=== PATIENT | female | born 1980 | race Caucasian/White ===

== ENCOUNTER 2018-05-04 09:57 | Inpatient (IN) | payer OTHER ==
--- OUTSIDE RECORDS SUMMARY | 2018-05-04 09:59 | XMS REPORT | Clinical Summary ---
:1980 Author Organization [facility] Address [address] [place] [address] Care Team Providers Name Role Phone Kinsey Rockwell MD Primary Care Provider Allergies Active Allergy Reactions Severity Noted Date Comments Codeine 04/15/2018 Current Medications Prescription Sig. Disp. Refills Start End Status Date Date ibuprofen 0 Active (ADVIL,MOTRIN) 600 6 MG tablet busPIRone (BUSPAR) Take 10 mg by Active 10 MG tablet mouth 2 (two) times a day. methocarbamol Take 1 tablet 15 tablet 0 Active (ROBAXIN-750) 750 (750 mg total) 8 018 MG tablet by mouth 3 (three) times a day as needed for muscle spasms for up to 5 days. naproxen Take 1 tablet 20 tablet 0 Active (NAPROSYN) 500 MG (500 mg total) 8 018 tablet by mouth 2 (two) times a day with meals for 10 days. sulfamethoxazole-t Take 1 tablet 14 tablet 0 Active rimethoprim by mouth 2 8 018 (BACTRIM DS) (two) times a 800-160 mg per day for 7 days. tablet ondansetron ODT DIS ONE T PO Q 0 Discontinued (ZOFRAN-ODT) 4 MG 6 H PRN NV 6 018 disintegrating tablet traMADol (ULTRAM) Take 1 tablet 40 tablet 0 Discontinued 50 mg (50 mg total) 8 018 tabletIndications: by mouth every Right upper 6 (six) hours quadrant abdominal as needed for pain moderate pain for up to 10 days. hydrocortisone Insert 1 60 suppository 0 Discontinued (ANUSOL-HC) 25 mg suppository (25 8 018 suppository mg total) into the rectum 2 (two) times a day for 30 days. gabapentin Take 1 capsule 90 capsule 0 Discontinued (NEURONTIN) 300 mg (300 mg total) 8 018 capsuleIndications by mouth 3 : Right upper (three) times a quadrant abdominal day for 30 pain days. Active Problems Problem Noted Date Acute abdominal pain 04/16/2018 Right upper quadrant abdominal pain 04/15/2018 Overview: Added automatically from request for surgery [id number] Closed fracture of left ulna 08/14/2016 Encounters Date Type Specialty Care Team Description 04/29/2018 Emergency Emergency Medicine Adan, Acute left-sided low back pain without sciatica (Primary Dx); Claudia Choi MD 04/19/2018 Documentation Obstetrics and Alistair Ware MD 04/17/2018 Anesthesia Event Gastroenterology Reina Hamm MD 04/17/2018 Procedure Pass Gastroenterology 04/17/2018 Surgery Gastroenterology Gino, ERCP WITH FLUORO Adrian Avila MD with stent removal and bx 04/15/2018 Hospital Encounter General Surgery Ted, Acute abdominal pain (Primary Dx); - Ramirez Bowel perforation; 04/19/2018 [place], Nausea and vomiting, intractability of vomiting not specified, unspecified vomiting type; Dehydration; Tiara, Right upper quadrant abdominal pain Dru Ruiz, DO after 05/03/2017 Family History Medical History Relation Name Comments Colon cancer Father Heart disease Maternal Grandfather No Known Problems Mother Relation Name Status Comments Father Alive Maternal Grandfather Maternal Grandmother Mother Alive Paternal Grandfather Paternal Grandmother Social History Tobacco Use Types Packs/Day Years Used Date Current Some Day Smoker Cigarettes 0.25 Smokeless Tobacco: Never Used Alcohol Use Drinks/Week oz/Week Comments Yes 1 Standard drinks or equivalent 0.6 socially Sex Assigned at Date Recorded Not on file Last Filed Vital Signs Vital Sign Reading Time Taken Blood Pressure 155/99 04/29/2018 8:26 PM CDT Pulse 101 04/29/2018 8:26 PM CDT Temperature 35.9 C (96.6 F) 04/29/2018 7:35 PM CDT Respiratory Rate 20 04/29/2018 7:35 PM CDT Oxygen Saturation 98% 04/29/2018 7:35 PM CDT Inhaled Oxygen Concentration - - Weight 81.6 kg (180 lb) 04/29/2018 4:21 PM CDT Height 165.1 cm (5' 5") 04/29/2018 4:21 PM CDT Body Mass Index 29.95 04/29/2018 4:21 PM CDT Plan of Treatment Health Maintenance Due Date Last Done Comments CERVICAL CANCER SCREENING 2003 INFLUENZA VACCINE 06/10/2018 Procedures Procedure Name Priority Date/Time Associated Comments Diagnosis CT RENAL STONE PROTOCOL STAT 04/29/2018 5:24 Results for this PM CDT procedure are in the results section. HCG QUALITATIVE, URINE STAT 04/29/2018 4:50 Results for this SCREEN PM CDT procedure are in the results section. URINALYSIS STAT 04/29/2018 4:50 Results for this PM CDT procedure are in the results section. ESTIMATED GFR STAT 04/29/2018 4:40 Results for this PM CDT procedure are in the results section. COMPREHENSIVE METABOLIC STAT 04/29/2018 4:40 Results for this PANEL PM CDT procedure are in the results section. HC COMPLETE BLD COUNT STAT 04/29/2018 4:40 Results for this W/AUTO DIFF PM CDT procedure are in the results section. SURGICAL PATHOLOGY Routine 04/20/2018 10:12 Results for this REQUEST AM CDT procedure are in the results section. US PELVIC TRANSVAGINAL STAT 04/19/2018 9:44 Results for this AM CDT procedure are in the results section. US PELVIC STAT 04/19/2018 9:22 Results for this TRANSABDOMINAL AM CDT procedure are in the results section. ESTIMATED GFR STAT 04/19/2018 8:07 Results for this AM CDT procedure are in the results section. LIPASE LEVEL STAT 04/19/2018 8:07 Results for this AM CDT procedure are in the results section. BASIC METABOLIC PANEL STAT 04/19/2018 8:07 Results for this AM CDT procedure are in the results section. HC COMPLETE BLD COUNT Routine 04/19/2018 3:38 Results for this W/AUTO DIFF AM CDT procedure are in the results section. LIPASE LEVEL Routine 04/18/2018 4:00 Results for this AM CDT procedure are in the results section. ESTIMATED GFR Routine 04/18/2018 4:00 Results for this AM CDT procedure are in the results section. COMPREHENSIVE METABOLIC Routine 04/18/2018 4:00 Results for this PANEL AM CDT procedure are in the results section. PHOSPHORUS LEVEL Routine 04/18/2018 4:00 Results for this AM CDT procedure are in the results section. MAGNESIUM LEVEL Routine 04/18/2018 4:00 Results for this AM CDT procedure are in the results section. HC COMPLETE BLD COUNT Routine 04/18/2018 3:50 Results for this W/AUTO DIFF AM CDT procedure are in the results section. ERCP WITH FLUORO 04/17/2018 2:15 Acute abdominal PM CDT pain Special Needs Fluoro HEMOGLOBIN & HEMATOCRIT Routine 04/17/2018 12:25 PM CDT ESTIMATED GFR Routine 04/17/2018 4:00 AM CDT PHOSPHORUS LEVEL Routine 04/17/2018 4:00 AM CDT MAGNESIUM LEVEL Routine 04/17/2018 4:00 AM CDT BASIC METABOLIC PANEL Routine 04/17/2018 4:00 AM CDT CBC WITH PLATELET AND Routine 04/17/2018 3:50 AM CDT Results for this DIFFERENTIAL procedure are in the results section. CT ABDOMEN PELVIS W CONTRAST STAT 04/17/2018 3:[address] ABDOMEN PELVIS WO STAT 04/15/2018 11:49 PM CDT Results for this CONTRAST procedure are in the results section. BLOOD CULTURE, AEROBIC & Routine 04/15/2018 10:10 PM CDT Results for this ANAEROBIC procedure are in the results section. ESTIMATED GFR STAT 04/15/2018 10:00 PM CDT LIPASE LEVEL STAT 04/15/2018 10:00 PM CDT LACTIC ACID LEVEL, SEPSIS - STAT 04/15/2018 10:00 PM CDT Results for this NOW AND REPEAT 2X EVERY 3 procedure are in the HOURS results section. COMPREHENSIVE METABOLIC STAT 04/15/2018 10:00 PM CDT Results for this PANEL procedure are in the results section. PARTIAL THROMBOPLASTIN TIME STAT 04/15/2018 10:00 PM CDT Results for this (PTT) procedure are in the results section. PROTHROMBIN TIME WITH INR STAT 04/15/2018 10:00 PM CDT HC COMPLETE BLD COUNT W/AUTO STAT 04/15/2018 10:00 PM CDT Results for this DIFF procedure are in the results section. ECG 12-LEAD STAT 04/15/2018 7:10 PM CDT after 05/03/[address] Renal Stone Protocol (04/29/2018 5:24 PM) Narrative Performed At EXAMINATION:CT RENAL STONE PROTOCOL RADIANT CLINICAL HISTORY:Flank painstone disease suspected TECHNIQUE: Multiple axial images of the abdomen and pelvis were obtained without intravenous administration of iodinated contrast. Sagittal and coronal computerized reformatted images were also obtained. The lack of intravenous contrast reduces the sensitivity of detecting solid organ disease. CT scans are performed using radiation dose reduction techniques. Technical factors are evaluated and adjusted to ensure appropriate moderation of exposure. Automated dose management technology is applied to adjust radiation exposure while achieving a diagnostic quality image. COMPARISON:04/17/2018 FINDINGS: Evaluation for renal calculi is limited due to respiratory motion although a small punctate 3-4 mm calculus is suspected within the midpole of the left kidney. There are no definite right renal calculi. No ureteral calculi are seen. There is no hydronephrosis. The unenhanced spleen, adrenal glands, pancreas, and liver are unremarkable. Gallbladder has been removed. Pneumobilia noted on previous examination has resolved. The plastic common bile duct stent has also been removed. Abdominal aorta is normal in caliber. There is no lymphadenopathy or ascites. No inflammatory changes are seen around the large or small bowel. The cecum extends into the pelvis. The appendix is not clearly identified although no pericecal fluid collections are present. No pelvic mass or pelvic lymphadenopathy are seen. Bladder is collapsed. There are bilateral breast implants although the right implant appears deflated. Atelectasis is present in the lung bases. The osseous structures are intact.. IMPRESSION: A small punctate 3 mm calculus is present in the left kidney. No additional calculi are seen. [id number] Procedure Note Hm Interface, Radiology Results Incoming - 04/29/2018 5:43 PM CDT EXAMINATION: CT RENAL STONE PROTOCOL CLINICAL HISTORY: Flank pain stone disease suspected TECHNIQUE: Multiple axial images of the abdomen and pelvis were obtained without intravenous administration of iodinated contrast. Sagittal and coronal computerized reformatted images were also obtained. The lack of intravenous contrast reduces the sensitivity of detecting solid organ disease. CT scans are performed using radiation dose reduction techniques. Technical factors are evaluated and adjusted to ensure appropriate moderation of exposure. Automated dose management technology is applied to adjust radiation exposure while achieving a diagnostic quality image. COMPARISON: 04/17/2018 FINDINGS: Evaluation for renal calculi is limited due to respiratory motion although a small punctate 3-4 mm calculus is suspected within the midpole of the left kidney. There are no definite right renal calculi. No ureteral calculi are seen. There is no hydronephrosis. The unenhanced spleen, adrenal glands, pancreas, and liver are unremarkable. Gallbladder has been removed. Pneumobilia noted on previous examination has resolved. The plastic common bile duct stent has also been removed. Abdominal aorta is normal in caliber. There is no lymphadenopathy or ascites. No inflammatory changes are seen around the large or small bowel. The cecum extends into the pelvis. The appendix is not clearly identified although no pericecal fluid collections are present. No pelvic mass or pelvic lymphadenopathy are seen. Bladder is collapsed. There are bilateral breast implants although the right implant appears deflated. Atelectasis is present in the lung bases. The osseous structures are intact.. IMPRESSION: A small punctate 3 mm calculus is present in the left kidney. No additional calculi are seen. [facility] [id number] Performing Organization Address City/State/Zipcode Phone Number [facility] [address] [place] [address] Urinalysis (04/29/2018 4:50 PM) Glucose, UA Negative Negative [facility] Bilirubin, UA Negative Negative [facility] Ketones, UA Negative Negative DEPARTMENT OF PATHOLOGY AND GENOMIC MEDICINE, [facility] Specific gravity, UA 1.025 1.001 - 1.035 [facility] Blood, UA Negative Negative [facility] pH, UA 6.0 5.0 - 8.5 [facility] Protein, UA 1+ (A) Negative [facility] Urobilinogen, UA <2.0 <2.0 [facility] Nitrite, UA Negative Negative [facility] Leukocyte esterase, UA Trace (A) Negative [facility] Color, UA Yellow [facility] Appearance, UA Cloudy [facility] Specimen Urine Performing Organization Address City/State/[facility] Phone Number DEPARTMENT OF PATHOLOGY AND [address] [place] [address] hCG qualitative, urine screen (04/29/2018 4:50 PM) hCG qualitative, urine NegativeComment: DEPARTMENT OF Sensitivity of HCG test: 25 PATHOLOGY AND GENOMIC mIU/mL [facility] Specimen Urine Performing Organization Address City/[facility] Phone Number DEPARTMENT OF PATHOLOGY AND [address] [place] [address] Estimated GFR (04/29/2018 4:40 PM)Only the most recent of5 resultswithin the time period is included. GFR Non Af Amer >90 mL/min/1.73 m2 [facility] GFR Af Amer >90 mL/min/1.73 m2 DEPARTMENT OF PATHOLOGY Comment: AND [facility], Chronic kidney disease: <60 mL/min/1.73m2 [facility] Kidney failure: <15 mL/min/1.73m2 CENTER The estimated GFR is calculated from the IDMS-traceable Modification of Diet in Renal Disease Equation. The accuracy of the calculation is poor when the creatinine is normal. Calculated values >90 mL/min/1.73m2 are not reported. This equation has not been validated in children (<18 years), women, the elderly (>70 years), or ethnic groups other than Caucasians and Americans. Specimen Plasma specimen Performing Organization Address City/State/[facility] Phone Number DEPARTMENT OF PATHOLOGY AND [address] [place] [address] CBC with platelet and differential (04/29/2018 4:40 PM)Only the most recent of5 resultswithin the time period is included. WBC 8.23 4.50 - 11.00 k/uL [facility] RBC 4.72 4.20 - 5.50 m/uL [facility] HGB 13.5 12.0 - 16.0 g/dL [facility] HCT 40.3 37.0 - 47.0 % [facility] MCV 85.4 82.0 - 100.0 fL [facility] MCH 28.6 27.0 - 34.0 pg [facility] MCHC 33.5 31.0 - 37.0 g/dL [facility] RDW - SD 37.2 37.0 - 55.0 fL [facility] MPV 9.7 8.8 - 13.2 fL [facility] Platelet count 379 150 - 400 k/uL [facility] Neutrophils 46.9 39.0 - 69.0 % [facility] Lymphocytes 38.5 25.0 - 45.0 % [facility] Monocytes 8.6 0.0 - 10.0 % [facility] Eosinophils 5.3 (H) 0.0 - 5.0 % [facility] Basophils 0.7 0.0 - 1.0 % [facility] Specimen Blood Performing Organization Address City/State/Zipcode Phone Number DEPARTMENT OF PATHOLOGY AND [address] [place] [address] [facility] Comprehensive metabolic panel (04/29/2018 4:40 PM)Only the most recent of3 resultswithin the time period is included. Sodium 136 128 - 145 mEq/L [facility] Potassium 3.5 (L) 3.6 - 5.1 mEq/L [facility] CO2 28 18 - 33 mEq/L [facility] Chloride 104 98 - 108 mEq/L [facility] Glucose 102 73 - 118 mg/dL [facility] Calcium 9.1 8.0 - 10.3 mg/dL [facility] BUN 15 7 - 22 mg/dL [facility] Creatinine 0.4 (L) 0.6 - 1.2 mg/dL [facility] Alkaline phosphatase 51 42 - 141 U/L [facility] ALT 17 10 - 47 U/L [facility] AST 24 11 - 38 U/L [facility] Total bilirubin 0.5 0.2 - 1.6 mg/dL [facility] Albumin 3.9 3.3 - 5.5 g/dL [facility] Protein 7.7 6.4 - 8.1 g/dL [facility] Anion gap 4@ANIO (L) 7 - 15 mEq/L [facility] A/G ratio 1.0 0.7 - 3.8 [facility] Specimen Plasma specimen Performing Organization Address City/State/Zipcode Phone Number DEPARTMENT OF PATHOLOGY AND [address] [place] [address] [facility] Surgical pathology request (04/20/2018 10:12 AM) [facility] DEPARTMENT OF PATHOLOGY AND GENOMIC MEDICINE Surgical pathology report See link below for PDF [facility] DEPARTMENT OF Lab Report PATHOLOGY AND GENOMIC MEDICINE Result status This is Final Report to [facility] DEPARTMENT OF [id number] PATHOLOGY AND GENOMIC MEDICINE Performing Organization Address City/State/Zipcode Phone Number [facility] DEPARTMENT OF PATHOLOGY AND [address] [address] [employer] US Pelvic Transvaginal (04/19/2018 9:44 AM) Narrative Performed At EXAMINATION:US PELVIC TRANSVAGINAL, US PELVIC TRANSABDOMINAL [facility] CLINICAL HISTORY:Evaluation of abnormal uterine bleeding in pre or post menopausal patients, Non-OB evaluation of vaginal Bleeding COMPARISON:None. TECHNIQUE:Transabdominal and endovaginal sonographic images of the pelvis were obtained. Grayscale, color Doppler, and spectral waveform analysis of the ovarian vessels was performed. FINDINGS: The uterus measures 8.56 cm x 4.9 x 4.3 cm. The endometrial stripe measures 1.77 cm. The right ovary measures 3.08 cm x 1.56 cm x 1.79 cm . Normal Doppler flow was present. The left ovary measures 2.79 cm x 1.41 cm x 1.66 cm. Normal Doppler flow was present. TRANSVAGINAL IMAGING: The uterus has a heterogeneous appearance.Endometrium is not enlarged. The right ovary has multiple follicles. There is no torsion present. The left ovary has multiple follicles. There is no torsion present. There are no adnexal masses present. IMPRESSION: 1.Normal transabdominal and endovaginal pelvic ultrasound examination. 2. The uterus does not demonstrate any masses. The uterus has a heterogeneous appearance. 3. The ovaries unremarkable. 4. There are no adnexal masses. [id number] Procedure Note Interface, Radiology Results Incoming - 04/19/2018 10:10 AM CDT EXAMINATION: US PELVIC TRANSVAGINAL, US PELVIC TRANSABDOMINAL CLINICAL HISTORY: Evaluation of abnormal uterine bleeding in pre or post menopausal patients, Non-OB evaluation of vaginal Bleeding COMPARISON: None. TECHNIQUE:Transabdominal and endovaginal sonographic images of the pelvis were obtained. Grayscale, color Doppler, and spectral waveform analysis of the ovarian vessels was performed. FINDINGS: The uterus measures 8.56 cm x 4.9 x 4.3 cm. The endometrial stripe measures 1.77 cm. The right ovary measures 3.08 cm x 1.56 cm x 1.79 cm . Normal Doppler flow was present. The left ovary measures 2.79 cm x 1.41 cm x 1.66 cm. Normal Doppler flow was present. TRANSVAGINAL IMAGING: The uterus has a heterogeneous appearance. Endometrium is not enlarged. The right ovary has multiple follicles. There is no torsion present. The left ovary has multiple follicles. There is no torsion present. There are no adnexal masses present. IMPRESSION: 1. Normal transabdominal and endovaginal pelvic ultrasound examination. 2. The uterus does not demonstrate any masses. The uterus has a heterogeneous appearance. 3. The ovaries unremarkable. 4. There are no adnexal masses. [id number] Performing Organization Address City/State/Zipcode Phone Number [facility] [address] [place] [address] US Pelvic Transabdominal (04/19/2018 9:22 AM) Narrative Performed At EXAMINATION:US PELVIC TRANSVAGINAL, US PELVIC TRANSABDOMINAL [facility] CLINICAL HISTORY:Evaluation of abnormal uterine bleeding in pre or post menopausal patients, Non-OB evaluation of vaginal Bleeding COMPARISON:None. TECHNIQUE:Transabdominal and endovaginal sonographic images of the pelvis were obtained. Grayscale, color Doppler, and spectral waveform analysis of the ovarian vessels was performed. FINDINGS: The uterus measures 8.56 cm x 4.9 x 4.3 cm. The endometrial stripe measures 1.77 cm. The right ovary measures 3.08 cm x 1.56 cm x 1.79 cm . Normal Doppler flow was present. The left ovary measures 2.79 cm x 1.41 cm x 1.66 cm. Normal Doppler flow was present. TRANSVAGINAL IMAGING: The uterus has a heterogeneous appearance.Endometrium is not enlarged. The right ovary has multiple follicles. There is no torsion present. The left ovary has multiple follicles. There is no torsion present. There are no adnexal masses present. IMPRESSION: 1.Normal transabdominal and endovaginal pelvic ultrasound examination. 2. The uterus does not demonstrate any masses. The uterus has a heterogeneous appearance. 3. The ovaries unremarkable. 4. There are no adnexal masses. [id number] Procedure Note Interface, Radiology Results Incoming - 04/19/2018 10:10 AM CDT EXAMINATION: US PELVIC TRANSVAGINAL, US PELVIC TRANSABDOMINAL CLINICAL HISTORY: Evaluation of abnormal uterine bleeding in pre or post menopausal patients, Non-OB evaluation of vaginal Bleeding COMPARISON: None. TECHNIQUE:Transabdominal and endovaginal sonographic images of the pelvis were obtained. Grayscale, color Doppler, and spectral waveform analysis of the ovarian vessels was performed. FINDINGS: The uterus measures 8.56 cm x 4.9 x 4.3 cm. The endometrial stripe measures 1.77 cm. The right ovary measures 3.08 cm x 1.56 cm x 1.79 cm . Normal Doppler flow was present. The left ovary measures 2.79 cm x 1.41 cm x 1.66 cm. Normal Doppler flow was present. TRANSVAGINAL IMAGING: The uterus has a heterogeneous appearance. Endometrium is not enlarged. The right ovary has multiple follicles. There is no torsion present. The left ovary has multiple follicles. There is no torsion present. There are no adnexal masses present. IMPRESSION: 1. Normal transabdominal and endovaginal pelvic ultrasound examination. 2. The uterus does not demonstrate any masses. The uterus has a heterogeneous appearance. 3. The ovaries unremarkable. 4. There are no adnexal masses. [id number] Performing Organization Address [facility]/Zipcode Phone Number [address] [address] Lipase level (04/19/2018 8:07 AM)Only the most recent of3 resultswithin the time period is included. Lipase 44 13 - 60 U/L [facility] DEPARTMENT OF PATHOLOGY AND GENOMIC MEDICINE Specimen Plasma specimen Performing Organization Address City/[facility] Phone Number [facility] DEPARTMENT OF PATHOLOGY AND [address] [place] [address] [id number] GENOMIC MEDICINE Basic metabolic panel (04/19/2018 8:07 AM)Only the most recent of2 resultswithin the time period is included. Sodium 138 135 - 148 mEq/L [facility] DEPARTMENT OF PATHOLOGY AND GENOMIC MEDICINE Potassium 3.3 (L) 3.5 - 5.0 mEq/L [facility] DEPARTMENT OF PATHOLOGY AND GENOMIC MEDICINE Chloride 103 98 - 112 mEq/L [facility] DEPARTMENT OF PATHOLOGY AND GENOMIC MEDICINE CO2 25 24 - 31 mEq/L [facility] DEPARTMENT OF PATHOLOGY AND GENOMIC MEDICINE Anion gap 10@ANIO 7 - 15 mEq/L [facility] DEPARTMENT OF PATHOLOGY AND GENOMIC MEDICINE BUN 4 (L) 6 - 20 mg/dL [facility] DEPARTMENT OF PATHOLOGY AND GENOMIC MEDICINE Creatinine 0.6 0.5 - 0.9 mg/dL [facility] DEPARTMENT OF PATHOLOGY AND GENOMIC MEDICINE Glucose 114 (H) 65 - 99 mg/dL [facility] DEPARTMENT OF PATHOLOGY AND GENOMIC MEDICINE Calcium 9.1 8.3 - 10.2 mg/dL [facility] DEPARTMENT OF PATHOLOGY AND GENOMIC MEDICINE Specimen Plasma specimen Performing Organization Address [facility] Phone Number [facility] DEPARTMENT OF PATHOLOGY AND [address] [place] [address] Phosphorus level (04/18/2018 4:00 AM)Only the most recent of2 resultswithin the time period is included. Phosphorus 3.1 2.4 - 4.5 mg/dL [facility] DEPARTMENT OF PATHOLOGY AND GENOMIC MEDICINE Specimen Plasma specimen Performing Organization Address [facility] Phone Number [facility] DEPARTMENT OF PATHOLOGY AND [address] [place] [address] Magnesium level (04/18/2018 4:00 AM)Only the most recent of2 resultswithin the time period is included. Magnesium 2.1 1.6 - 2.6 mg/dL [facility] DEPARTMENT OF PATHOLOGY AND GENOMIC MEDICINE Specimen Plasma specimen Performing Organization Address [facility] Phone Number [facility] DEPARTMENT OF PATHOLOGY AND [address] [place] [address] Hemoglobin & hematocrit (04/17/2018 12:25 PM) HGB 11.4 (L) 12.0 - 16.0 g/dL [facility] DEPARTMENT OF PATHOLOGY AND GENOMIC MEDICINE HCT 32.4 (L) 37.0 - 47.0 % [facility] DEPARTMENT OF PATHOLOGY AND GENOMIC MEDICINE Specimen Blood Performing Organization Address [facility] Phone Number [facility] DEPARTMENT OF PATHOLOGY AND [address] [place] [address] CT Abdomen Pelvis W Contrast (04/17/2018 3:41 AM) Narrative Performed At Examination:CT ABDOMEN PELVIS W CONTRAST [facility] Clinical History: ABDOMINAL PAIN, Possible fistula complicating lap kate and ERCP. Comparison: None. Findings: CT scans are performed using radiation dose reduction techniques.Technical factors are evaluated and adjusted to ensure appropriate moderation of exposure.Automated dose management technology is applied to adjust radiation exposure while achieving a diagnostic quality image. CT scan of the abdomen and pelvis was performed after intravenous contrast. The patient is status post cholecystectomy. Small amount of pneumobilia is noted. There is a common bile duct stent noted but no common bile duct dilatation is seen. There is no fluid collection in the gallbladder fossa. Liver demonstrate a vague low-density in the right lobe measuring 8 mm which is too small to characterize. The spleen, pancreas, and adrenal glands are unremarkable. The kidneys are within normal limits without hydronephrosis. Nonspecific but nondilated proximal fluid-filled loops of small bowel but no gross distention is seen. No bowel thickening or fat stranding is seen. The appendix is not visualized. No free fluid is seen. Urinary bladder is unremarkable. There is a bubble of free intraperitoneal air noted in the anterior upper abdomen probably related to recent surgery. The visualized lung bases are clear. IMPRESSION: 1. Status post cholecystectomy with small pneumobilia and common bile duct stent but no fluid collection in the gallbladder fossa. 2. Small bubble of free intraperitoneal air in the anterior upper abdomen probably related to recent surgery. Clinical correlation is recommended. 3. Nonspecific but nondilated fluid-filled loops of small bowel may be related to adynamic ileus. The nurse is taking care of the patient, Isidro, was informed of these findings on 04/17/2018 3:56 AM and acknowledged understanding of the findings. [facility]-[id number] Procedure Note [facility], Radiology Results Incoming - 04/17/2018 4:00 AM CDT Examination: CT ABDOMEN PELVIS W CONTRAST Clinical History: ABDOMINAL PAIN, Possible fistula complicating lap kate and ERCP. Comparison: None. Findings: CT scans are performed using radiation dose reduction techniques. Technical factors are evaluated and adjusted to ensure appropriate moderation of exposure. Automated dose management technology is applied to adjust radiation exposure while achieving a diagnostic quality image. CT scan of the abdomen and pelvis was performed after intravenous contrast. The patient is status post cholecystectomy. Small amount of pneumobilia is noted. There is a common bile duct stent noted but no common bile duct dilatation is seen. There is no fluid collection in the gallbladder fossa. Liver demonstrate a vague low-density in the right lobe measuring 8 mm which is too small to characterize. The spleen, pancreas, and adrenal glands are unremarkable. The kidneys are within normal limits without hydronephrosis. Nonspecific but nondilated proximal fluid-filled loops of small bowel but no gross distention is seen. No bowel thickening or fat stranding is seen. The appendix is not visualized. No free fluid is seen. Urinary bladder is unremarkable. There is a bubble of free intraperitoneal air noted in the anterior upper abdomen probably related to recent surgery. The visualized lung bases are clear. IMPRESSION: 1. Status post cholecystectomy with small pneumobilia and common bile duct stent but no fluid collection in the gallbladder fossa. 2. Small bubble of free intraperitoneal air in the anterior upper abdomen probably related to recent surgery. Clinical correlation is recommended. 3. Nonspecific but nondilated fluid-filled loops of small bowel may be related to adynamic ileus. The nurse is taking care of the patient, Isidro, was informed of these findings on 04/17/2018 3:56 AM and acknowledged understanding of the findings. [facility]-[id number] Performing Organization Address City/State/Zipcode Phone Number [facility] [address] [place] [address] CT Abdomen Pelvis Wo Contrast (04/15/2018 11:49 PM) Narrative Performed At CT ABDOMEN PELVIS WO CONTRAST [facility] CLINICAL INDICATION:ABDOMINAL PAIN, S p surgery TECHNIQUE: Multidetector CT of the abdomen and pelvis was performed without intravenous administration of iodinated contrast with multiplanar reformats. CT scans are performed using radiation dose reduction techniques (iterative reconstruction and/or automated exposure control). Technical factors are evaluated and adjusted to ensure appropriate moderation of exposure. Automated dose management technology is applied to adjust radiation exposure while achieving a diagnostic quality image. COMPARISON:Abdomen/pelvis CT 11/04/2016. FINDINGS: Lung bases:Clear. Liver:Normal. Gallbladder and biliary:Prior cholecystectomy with placement of a biliary stent in the common bile duct. Associated pneumobilia.. Pancreas:Normal. Spleen:Normal. Gastrointestinal:Large and small bowel are normal in caliber. Appendix is not visualized. No focal inflammatory changes within the right lower quadrant of the abdomen. Adrenals:Normal. Kidneys and ureters:Punctate nonobstructing calculus in the left renal pelvis. No mass or hydronephrosis. Urinary bladder:Normal. Lymph nodes:No enlarged lymph nodes in the abdomen or pelvis. Peritoneum: Small foci of pneumoperitoneum predominantly in the perihepatic spaces. No ascites. Vascular:Mild atherosclerotic changes of the abdominal aorta and major branch vessels. Reproductive organs:Uterus is normal. Unremarkable adnexae. Abdominal wall:Unremarkable. Bones:No acute osseous abnormalities. IMPRESSION: 1. Operative changes related to cholecystectomy and placement of a common bile duct stent. Associated pneumobilia. 2. Small foci of perihepatic pneumoperitoneum. The most recent operation is reportedly 4 weeks ago. This raises concern for perforation or fistulous tract rather than postoperative air. Findings were discussed with Dr. RAMIREZ MART at 04/15/2018 11:54 PM who verbalized understanding. [facility]-[id number] Procedure Note Interface, Radiology Results Incoming - 04/16/2018 12:[address] ABDOMEN PELVIS WO CONTRAST CLINICAL INDICATION: ABDOMINAL PAIN, S p surgery TECHNIQUE: Multidetector CT of the abdomen and pelvis was performed without intravenous administration of iodinated contrast with multiplanar reformats. CT scans are performed using radiation dose reduction techniques (iterative reconstruction and/or automated exposure control). Technical factors are evaluated and adjusted to ensure appropriate moderation of exposure. Automated dose management technology is applied to adjust radiation exposure while achieving a diagnostic quality image. COMPARISON: Abdomen/pelvis CT 11/04/2016. FINDINGS: Lung bases: Clear. Liver: Normal. Gallbladder and biliary: Prior cholecystectomy with placement of a biliary stent in the common bile duct. Associated pneumobilia.. Pancreas: Normal. Spleen: Normal. Gastrointestinal: Large and small bowel are normal in caliber. Appendix is not visualized. No focal inflammatory changes within the right lower quadrant of the abdomen. Adrenals: Normal. Kidneys and ureters: Punctate nonobstructing calculus in the left renal pelvis. No mass or hydronephrosis. Urinary bladder: Normal. Lymph nodes: No enlarged lymph nodes in the abdomen or pelvis. Peritoneum: Small foci of pneumoperitoneum predominantly in the perihepatic spaces. No ascites. Vascular: Mild atherosclerotic changes of the abdominal aorta and major branch vessels. Reproductive organs: Uterus is normal. Unremarkable adnexae. Abdominal wall: Unremarkable. Bones: No acute osseous abnormalities. IMPRESSION: 1. Operative changes related to cholecystectomy and placement of a common bile duct stent. Associated pneumobilia. 2. Small foci of perihepatic pneumoperitoneum. The most recent operation is reportedly 4 weeks ago. This raises concern for perforation or fistulous tract rather than postoperative air. Findings were discussed with Dr. RAMIREZ MART at 04/15/2018 11:54 PM who verbalized understanding. [facility]-[id number] Performing Organization Address City/State/Zipcode Phone Number [facility] [address] [place] [address] Blood culture, aerobic & anaerobic (04/15/2018 10:10 PM) Blood culture isolate No growth after 5 days of incubation. [facility] DEPARTMENT OF Comment: PATHOLOGY AND GENOMIC Specimen Information MEDICINE Specimen Source: Blood Specimen Site: Antecubital Right Specimen Blood Performing Organization Address [facility] Phone Number [facility] DEPARTMENT OF PATHOLOGY AND [address] [place] [phone] [place] [address] Lactic acid level, SEPSIS - Now and repeat 2x every 3 hours (04/15/2018 10:00 PM ) Lactic acid 1.7 0.5 - 2.2 mmol/L [facility] DEPARTMENT OF PATHOLOGY AND GENOMIC MEDICINE Specimen Plasma specimen Performing Organization Address [facility] Phone Number [facility] DEPARTMENT OF PATHOLOGY AND [address] [place] [phone] [facility] Partial thromboplastin time, activated (04/15/2018 10:00 PM) PTT 33.8 23.0 - 36.0 sec [facility] DEPARTMENT OF PATHOLOGY Comment: AND [facility] PTT therapeutic range for unfractionated heparin is 61.0-112.0 seconds which corresponds to Anti-Xa 0.3-0.7 U/ml. Specimen Blood Performing Organization Address [facility] Phone Number [facility] DEPARTMENT OF PATHOLOGY AND [address] [place] [phone] [facility] Prothrombin time with INR (04/15/2018 10:00 PM) Prothrombin time 13.0 12.0 - 15.0 sec [facility] DEPARTMENT OF PATHOLOGY AND GENOMIC MEDICINE INR 1.0 [facility] DEPARTMENT OF Comment: PATHOLOGY AND GENOMIC The International Normalized Ratio (INR) is a therapeutic MEDICINE monitoring tool for patients who are stable on oral anticoagulant therapy. An INR of 2.0-3.0 is suggested for deep vein thrombosis/pulmonary embolism. Specimen Blood Performing Organization Address [facility] Phone Number [facility] DEPARTMENT OF PATHOLOGY AND [address] [place] [phone] [facility] ECG 12 lead (04/15/2018 7:10 PM) Ventricular rate 125 [facility] Atrial rate 125 [facility] [place] interval 128 [facility] QRSD interval 68 [facility] QT interval 324 [facility] QTC interval 467 [facility] M[facility] P axis 1 69 [facility] QRS axis 1 81 [facility] T wave axis 7 [facility] M[facility] EKG impression Sinus tachycardia-Nonspecific T wave [facility] MUSE abnormality-Abnormal ECG-No previous ECGs available- Performing Organization Address City/State/Zipcode Phone Number [facility] MUSE [address] [place] [address] after 05/03/2017 Insurance Payer Benefit Plan / Group Subscriber ID Type Phone Address [facility] xxxxxxxxx HMO Home: [id number] [phone] MANUELA HAND [address] [phone] SHALOM RIGGS Personal/Family Self 1980 Home: [address] [phone] [address]EL[address] HAND [address] [place] [address]
--- OUTSIDE RECORDS SUMMARY | 2018-05-04 10:25 | XMS REPORT | Continuity of Care Document ---
:1980 Author Organization Interface Problems Problem Status Onset Classification Date Comments Source Date Reported UNK Active 04/07/20 [facility] 18 [place], [place] ACUTE LOWER GL Active 04/07/20 [facility] BLEEDING, ABD IN 18 [place] FEMALE BLEEDING STOMACH Active 04/07/20 [facility] PAIN 18 [place] ABDOMINAL PAIN Active 03/20/20 [facility] [place] [place] BLOOD IN STOOL, Active 03/20/20 PAIN 18 [place] ABD PAIN/BACK Active 03/15/20 PAIN/NAUSEA/VOMITIN 18 [place] G LAPAROSCOPIC Active 03/05/20 [facility] CHOLECYSEYCTOMY 18 [place] Abdominal pain 02/21/20 02/23/2018 [facility] 18 MRSA<sup>1, 2</sup> Active 01/29/20 Problem 04/26/2018 Problem OPID 18 added by Kairra Coelho [facility]. [facility] MRSA<sup>1, 2</sup> Active 01/29/20 Problem 03/25/2018 Problem OPID 18 added by Kiarra Coelho Expert. [place] MRSA<sup>1, 2</sup> Active 01/29/20 Problem 04/12/2018 Problem OPID 18 added by Kiarra Coelho Expert. [place] INTRACTABLE ABD Active 01/29/20 PAIN 18 [place] Generalized 12/27/19 03/30/2018 [facility] abdominal pain 18 Abdominal pain in 12/22/19 03/30/2018 [facility] female 18 Unspecified 12/03/19 03/04/2018 abdominal pain 18 [place] INTRACTABLE LOWER Active 11/20/19 ABDOMINAL PAIN 18 [place] ABDONIMAL PAIN Active 11/20/19 18 [place] BACK PAIN Active 07/04/20 17 [place] FLANK PAIN Active 07/04/20 17 [place] Discharge 03/27/20 03/30/2017 Diagnosis: 17 [place] Musculoskeletal pain Discharge 03/27/20 03/30/2017 Diagnosis: Back 17 [place] pain VOMITING Active 03/27/20 17 [place] Discharge 01/24/20 01/26/2017 Diagnosis: 17 [place] Pyelonephritis ACUTE Active 01/24/20 PYELONEPHRITIS, 17 [facility] INTRACTABLE BACK P Discharge 11/21/19 11/24/2016 Diagnosis: Acute 17 [facility] pain of right knee Discharge 10/31/20 11/03/2016 [facility] Diagnosis: Acute [address] [place] [address] right flank pain Discharge 10/31/20 11/03/2016 [facility] Diagnosis: [address] [place] [address] Complicated UTI Discharge 10/31/20 11/03/2016 [facility] Diagnosis: [address] [place] [address] Bilateral kidney stones ABD / BACK PAIN Active 10/30/20 [facility] [place] Discharge 10/21/20 10/24/2016 Diagnosis: Acute 16 [facility] UTI Discharge 10/21/20 10/24/2016 Diagnosis: 16 [facility] Abdominal pain, RUQ ABD PAIN Active 10/20/20 16 [place] Discharge 10/17/20 10/20/2016 Diagnosis: Acute 16 [facility] pancreatitis EYE PAIN OR INJURY Active 06/14/[address] SORE ON FACE Active 06/13/20 16 [place] Discharge 05/24/20 05/27/2016 Diagnosis: Rectal 16 [place] pain Discharge 05/24/20 05/27/2016 Diagnosis: Bleeding 16 [facility] external hemorrhoids RECTUM Active 05/23/20 BLEEDING/LIGHT 16 [facility] HEADED RECTAL BLEEDING Active 04/21/20 16 [facility] ANAL FISSURES, Active 04/21/20 HEMMORHOIDS, 16 [facility] INTRACTABLE Discharge 03/31/20 04/03/2016 Diagnosis: Acute 16 [place] postoperative pain Discharge 03/31/20 04/03/2016 Diagnosis: H/O 16 [facility] hemorrhoidectomy RECTAL PAIN Active 03/31/20 16 [facility] NECK PAIN Active 11/22/19 16 [facility] RT LEG PAIN Active 11/30/18 70 [facility] Abdominal Active Problem 04/26/2018 OPID distention [facility] Abdominal pain Active Problem 04/26/2018 OPID [facility] Erosive gastritis Active Problem 04/26/2018 OPID [facility] Acute Resolved Problem 04/26/2018 OPID pyelonephritis [facility] Appendicitis Resolved Problem 04/26/2018 [facility] OPID [facility] Asthmatic Active Problem 04/26/2018 OP[facility] bronchitis [facility] Cholelithiasis Active Problem 04/26/2018 [facility] [place],[facility] [place] delivery Resolved Problem 04/26/2018 [place],[facility] [place] [facility] Chronic anxiety Active Problem 04/26/2018 [facility] [place] [facility] Crohns disease Resolved Problem 04/26/2018 [facility] [place] [facility] Diarrhea Active Problem 04/26/2018 [facility] [place] [facility] Hemorrhoids Resolved Problem 04/26/2018 [place],[facility] H [facility] [place] [facility] History of Active Problem 04/26/2018 [facility] nephrolithiasis [place] [facility] Hypertensive Active Problem 04/26/2018 [facility] disorder [place] [facility] Tonsillitis Resolved Problem 04/26/2018 [place],[facility] H OP[facility] [place] [facility] Acute Resolved Problem 03/25/2018 OPID pyelonephritis [place] , [place] Crohns disease Resolved Problem 03/25/2018 OPID [place] [facility] [place] Lower abdominal 03/04/2018 pain, unspecified [place] Other gastritis 03/04/2018 [facility] without bleeding [place] Diaphragmatic 03/04/2018 hernia without [place] obstruction or gangrene Dehydration 03/04/2018 [place] Abdominal Active Problem 03/25/2018 OPID distention [place] , [place] Abdominal pain Active Problem 03/25/2018 OPID [place] , [place] Erosive gastritis Active Problem 03/25/2018 OPID [place] [facility] [place] Asthmatic Active Problem 03/25/2018 OPID bronchitis [place] , [place] Chronic anxiety Active Problem 03/25/2018 OPID [place] [facility] [place] Diarrhea Active Problem 03/25/2018 OPID [place] [facility] [place] History of Active Problem 03/25/2018 OPID nephrolithiasis [place] , [place] Hypertensive Active Problem 03/25/2018 OPID disorder [place] , [place] Final: Acute 01/30/2017 pyelonephritis [place] Abdominal Active Problem 04/12/2018 OPID distention [place] , [place] Abdominal pain Active Problem 04/12/2018 [facility] [place] [facility] Active Problem 04/12/2018 OPID [place] , [place] Acute Resolved Problem 04/12/2018 OPID pyelonephritis [place] , [place] Appendicitis Resolved Problem 04/12/2018 [place],[facility] H OPID [place] ,[facility] Asthmatic Active Problem 04/12/2018 OPID bronchitis [place] ,[facility] delivery Resolved Problem 04/12/2018 [place],[facility] H OPID [place] ,[facility] Chronic anxiety Active Problem 04/12/2018 OPID [place] ,[facility] Crohns disease Resolved Problem 04/12/2018 OPID [place] ,[facility] Diarrhea Active Problem 04/12/2018 OPID [place] ,[facility] Hemorrhoids Resolved Problem 04/12/2018 [place],[facility] H OPID [place] ,[facility] History of Active Problem 04/12/2018 OPID nephrolithiasis [place] ,[facility] Hypertensive Active Problem 04/12/2018 OPID disorder [place] ,[facility] Tonsillitis Resolved Problem 04/12/2018 [place],[facility] H OPID [place] ,[facility] Personal history of 03/30/2018 [facility] other diseases of the digestive system Personal history of 03/30/2018 [facility] urinary calculi Other specified 03/30/2018 [facility] postprocedural states Anxiety disorder, 03/30/2018 [facility] unspecified ANAL FISSURE, Active UNSPECIFIED [place] ACUTE Active PYELONEPHRITIS [place] DORSALGIA, Active UNSPECIFIED [place] LOWER ABDOMINAL Active PAIN, UNSPECIFIED [place] GASTROINTESTINAL Active [facility] HEMORRHAGE[place] UNSPECIFIED UNSPECIFIED Active ABDOMINAL PAIN [place] [place] Medications Medication Details Route Status Patient Ordering Order Source Instructions Provider Date busPIRone 7.5 mg
See Active Medical oral tablet Instructions, 2018 Group TAKE 1 TABLET BY MOUTH TWICE DAILY, # 60 tab, 1 Refill(s), Pharmacy: [id number] Acetaminophen 325
See Active MG / Hydrocodone Instructions, 2018 [place] Bitartrate 10 MG PRN Pain Score Oral Tablet [Gould 6-10, 1 tab PO 10/325] Q4-6H prn pain, # 24 tab, 0 Refill(s) Ondansetron 4 MG
4 mg=1 Active Oral Tablet tab, PO, Q6H, 2018 [place] [Zofran] PRN Nausea/Vomitin g, # 8 tab, 0 Refill(s), Pharmacy: [facility] [id number] Miralax
17 gm, 1 Inactive pkt, Route: 2017 [place] PO, Drug form: PWDR, BID, Dosing Weight 81.534, kg, Start date: 04/09/18 9:00:00 CDT, Duration: 30 day, Stop date: 05/08/18 17:00:00 CDT
Notes: Dissolve in 8 oz of water or juice. (Same as: Miralax) magnesium citrate
300 ml, Inactive 58.2 MG/ML Oral Route: PO, 2017 [place] Solution Drug Form: LIQ, Dosing Weight 81.534, kg, ONCE, Start date: 04/09/18 7:29:00 CDT, Stop date: 04/09/18 7:29:00 CDT
Notes: (Same as: Citrate of Magnesia) Concentration: 1.745 gm / 30 mL magnesium citrate
300 mL, No Longer 58.2 MG/ML Oral Route: PO, Active 2017 [place] Solution Drug Form: LIQ, Dosing Weight 81.534, kg, Bedtime, Start date: 04/08/18 21:00:00 CDT, Duration: 30 day, Stop date: 05/07/18 21:00:00 CDT
Notes: (Same as: Citrate of Magnesia) Concentration: 1.745 gm / 30 mL BuSpar
7.5 mg, No Longer 1.5 tab, Active 2017 [place] Route: PO, Drug form: TAB, Q12H, Start date: 04/08/18 9:00:00 CDT, Duration: 30 day, Stop date: 05/07/18 21:00:00 CDT
Notes: (Same As: BuSpar) busPIRone 7.5 mg
busPIRone Inactive oral tablet 7.5 mg oral 2018 [place] tablet, See Instructions, Route: PO, Q12H, 04/08/18 9:00:00 CDT, Duration: 30 day, Stop date: 05/07/18 21:00:00 CDT potassium chloride
40 mEq, 2 Inactive 05/30/ MH 20 mEq oral tab, Route: 2018 [place] tablet, extended PO, Drug form: release ERTAB, ONCE, Dosing Weight 81.534, kg, Start date: 04/08/18 8:03:00 CDT, Stop date: 04/08/18 8:03:00 CDT
Notes: (Same as: K-Dur 20) "Do Not Crush" For patients unable to swallow tablet, dissolve in one half glass of water. Allow about 2 minutes for the tablets to disintegrate. Stir before giving to prepare slurry and administer. Please exclude Patients with feeding tube less than 14 [place] (Dobhoff, J-tube etc) and pediatric and patients. With food and full glass of water Dilaudid
1 mg, 1 No Longer 05/30/ MH mL, Route: Active 2017 [place] IVP, Drug form: INJ, Q3H, Dosing Weight 81.534, kg, PRN Pain Score 7-10, Start date: 04/08/18 3:32:00 CDT, Duration: 30 day, Stop date: 05/08/18 3:31:00 CDT
Notes: Same as: Dilaudid Dilaudid
2 mg, 2 Inactive 05/30/ MH mL, Route: 2017 [place] IVP, Drug form: INJ, ONCE, Dosing Weight 81.534, kg, Priority: STAT, Start date: 04/08/18 0:29:00 CDT, Stop date: 04/08/18 0:29:00 CDT
Notes: Same as: Dilaudid Duragesic-75
1 patch, No Longer 05/30/ MH Route: TOP, Active 2017 [place] Drug Form: ERFILM, Dosing Weight 79.3, kg, Q72H, Start date: 04/07/18 22:00:00 CDT, Duration: 30 day, Stop date: 05/04/18 22:00:00 CDT
Notes: (Same as: Duragesic) Check for product integrity. Apply to intact skin "Remove old patch before application of new patch" Labetalol
20 mg, 4 No Longer 05/30/ MH mL, Route: Active 2017 [place] IVP, Drug form: INJ, Q4H, Dosing Weight 79.3, kg, PRN Hypertension, Start date: 04/07/18 22:00:00 CDT, Duration: 30 day, Stop date: 05/07/18 21:59:00 CDT Dilaudid
1 mg, Inactive Route: IVP, 2018 [place] ONCE, Dosing Weight 79.3, kg, Priority: STAT, Start date: 04/07/18 21:53:00 CDT, Stop date: 04/07/18 21:53:00 CDT Fentanyl
100 Inactive microgram, 2 2018 [place] mL, Route: IV, Drug form: INJ, ONCE, Dosing Weight 79.3, kg, Priority: NOW, Start date: 04/07/18 21:53:00 CDT, Stop date: 04/07/18 21:53:00 CDT
Notes: (Same as: Sublimaze) Preservative free. Phenergan
25 mg, 1 No Longer mL, Route: Active 2018 [place] IVPB, Q6H, Dosing Weight 79.3, kg, PRN as needed for nausea/vomitin g, Start date: 04/07/18 21:45:00 CDT, Duration: 30 day, Stop date: 05/07/18 21:44:00 CDT
Notes: Do not give IV push. (Same as: Phenergan) Sodium Chloride
250 mL, No Longer 0.9% (titrate) 250 Rate: To prime Active 2017 [place] mL line and flush remaining blood products., Dosing Weight 79.3, kg, Route: IV, Total Volume: 250, Priority: Routine, Start Date: 04/07/18 21:45:00 CDT, Duration: 30 day, Stop date: 05/07/18 21:44:00 CDT, Replace Every: 24 hr Saline Flush 0.9%
10 ml, No Longer Route: IVP, Active 2017 [place] Drug Form: INJ, Dosing Weight 79.3, kg, PRN, PRN Line Flush, Start date: 04/07/18 21:45:00 CDT, Duration: 30 day, Stop date: 05/07/18 21:44:00 CDT
Notes: (Same as: BD Posiflush) polyethylene
4,000 mL, No Longer 04/08/ MH glycol 3350 with Route: PO, Active 2017 [place] electrolytes Drug Form: PDR/REC, Dosing Weight 79.3, kg, ONCE, Start date: 04/07/18 21:45:00 CDT, Stop date: 04/07/18 21:45:00 CDT
Notes: (polyethylene glycol electrolyte solution 4 Liter bottle) (Same as: Golytely Colyte) Sodium Chloride
1,000 mL, No Longer 04/08/ MH 0.9% IV 1,000 mL Rate: 150 Active 2017 [place] ml/hr, Infuse over: 6.7 hr, Route: IV, Dosing Weight 79.3 kg, Total Volume: 1,000, Start date: 04/07/18 21:45:00 CDT, Duration: 30 day, Stop date: 05/07/18 21:44:00 CDT, 1.93, m2 Labetalol
20 mg, 4 Inactive 05/30/ MH mL, Route: 2018 [place] IVP, Drug form: INJ, ONCE, Dosing Weight 79.3, kg, Priority: STAT, Start date: 04/07/18 21:20:00 CDT, Stop date: 04/07/18 21:20:00 CDT Morphine
4 mg, 1 Inactive 05/30/ MH mL, Route: 2018 [place] IVP, Drug form: SOLN, ONCE, Dosing Weight 79.3, kg, Priority: STAT, Start date: 04/07/18 19:19:00 CDT, Stop date: 04/07/18 19:19:00 CDT
Notes: (Same as:MORPhine Sulfate) Ondansetron
4 mg, 2 Inactive 05/30/ MH mL, Route: 2018 [place] IVP, Drug form: INJ, ONCE, Dosing Weight 81.818, kg, Priority: STAT, Start date: 04/07/18 19:15:00 CDT, Stop date: 04/07/18 19:15:00 CDT
Notes: (Same as: Zofran) MEDICATION WASTE Product Size: 4 mg Product Wasted: ___ mg Sodium Chloride
1,000 mL, Inactive 0.9% (Bolus) IV 1000 ml/hr, 2017 [place] Infuse Over: 1 hr, Route: IV, 1,000, Drug form: INJ, ONCE, Priority: STAT, Dosing Weight 81.818 kg, Start date: 04/07/18 19:15:00 CDT, Stop date: 04/07/18 19:15:00 CDT 24 HR tramadol
100 mg=1 Active hydrochloride 100 tab, PO, 2017 [facility] MG Extended Daily, PRN Release Tablet pain, # 1 tab, 0 Refill(s) Ketorolac
10 mg=1 Active Tromethamine 10 MG tab, PO, Q6H, 2017 [facility] Oral Tablet PRN Pain Score 1-3, X 7 day, # 28 tab, 1 Refill(s), [id number] Ondansetron 4 MG
4 mg=1 Active Disintegrating tab, PO, Q6H, 2017 [facility] Tablet [Zofran] PRN Nausea & Vomiting, Dissolve tab under tongue, # 20 tab, 0 Refill(s), Pharmacy: [facility] [id number] Morphine Sulfate
15 mg, 1 Inactive 15 MG Oral Tablet tab, Route: 2017 PO, Drug form: TAB, Q4H, Dosing Weight 81.818, kg, PRN Pain Score 7-10, Start date: 03/22/18 4:00:00 CDT, Duration: 30 day, Stop date: 04/21/18 3:59:00 CDT
Notes: (Same as:MORPhine Sulfate) Morphine Sulfate
30 mg, 2 No Longer 15 MG Oral Tablet tab, Route: Active 2017 PO, Drug form: TAB, ONCE, Dosing Weight 81.818, kg, Start date: 03/21/18 23:30:00 CDT, Stop date: 03/21/18 23:30:00 CDT
Notes: (Same as:MORPhine Sulfate) Morphine Sulfate
30 mg, Inactive 15 MG Oral Tablet Route: PO, 2017 [facility] Drug form: TAB, ONCE, Dosing Weight 81.818, kg, PRN Pain Score 4-6, Start date: 03/21/18 23:28:00 CDT Ketorolac
30 mg, 1 Active mL, Route: 2017 [facility] IVP, Drug form: INJ, Q6Hnow, Dosing Weight 81.818, kg, Start date: 03/21/18 22:00:00 CDT, Duration: 24 hr, Stop date: 03/22/18 16:00:00 CDT
Notes: (Same as:Toradol) IV bolus must be given >15 seconds. Give IM administration slowly and deeply into the muscle. Not for use > 4 days MEDICATION WASTE Product Size: 30 mg Product Wasted: ___ mg Trazodone
100 mg, 2 No Longer tab, Route: Active 2017 [facility] PO, Drug form: TAB, Bedtime, Dosing Weight 81.818, kg, PRN Insomnia, Start date: 03/21/18 21:58:00 CDT, Duration: 30 day, Stop date: 04/20/18 21:57:00 CDT
Notes: (Same As: Desyrel) Ondansetron
4 mg, 2 No Longer mL, Route: Active 2017 [facility] IVP, Drug form: INJ, Q4H, Dosing Weight 81.818, kg, PRN Nausea & Vomiting, Start date: 03/21/18 21:58:00 CDT, Duration: 30 day, Stop date: 04/20/18 21:57:00 CDT
Not es: (Same as: Zofran) MEDICATION WASTE Product Size: 4 mg Product Wasted: ___ mg Morphine
4 mg, 1 Inactive mL, Route: IV, 2017 [facility] Drug form: SOLN, Q3H, Dosing Weight 81.818, kg, PRN Pain Score 7-10, Start date: 03/21/18 19:28:00 CDT, Duration: 30 day, Stop date: 04/20/18 19:27:00 CDT
Notes: (Same as:MORPhine Sulfate) Tramadol
100 mg, 2 No Longer tab, Route: Active 2017 [facility] PO, Drug form: TAB, Q6H, Dosing Weight 81.818, kg, PRN Pain Score 4-6, Start date: 03/21/18 19:26:00 CDT, Duration: 30 day, Stop date: 04/20/18 19:25:00 CDT
Notes: Not to exceed 400mg/day. (Same As: Ultram) polyethylene
4,000 mL, Inactive glycol 3350 with Route: PO, 2017 [facility] electrolytes Drug Form: PDR/REC, Dosing Weight 81.818, kg, ONCE, Start date: 03/21/18 18:00:00 CDT, Stop date: 03/21/18 18:00:00 CDT
Notes: (Same as: Nulytely) Buspirone
7.5 mg, No Longer 1.5 tab, 2017 [facility] Route: PO, Drug form: TAB, BID, Dosing Weight 81.818, kg, Start date: 03/21/18 17:00:00 CDT, Duration: 30 day, Stop date: 04/20/18 9:00:00 CDT
Notes: (Same As: BuSpar) morphine Sulfate
12 mg, 6 Inactive mL, Route: PO, 2017 [facility] Drug form: SOLN, Q4H, PRN Pain Score 7-10, Start date: 03/21/18 16:46:00 CDT, Duration: 30 day, Stop date: 04/20/18 16:45:00 CDT
Notes: (Same as:MORPhine Sulfate) Protonix
40 mg, No Longer Route: IV, Active 2017 [facility] Drug form: INJ, BID-Before Meals, Dosing Weight 81.818, kg, Start date: 03/21/18 7:30:00 CDT, Duration: 30 day, Stop date: 04/19/18 16:30:00 CDT
Notes: For IV push reconstitute with 10 ml 0.9% sodium chloride and push over 2 minutes. (Same as: Protonix) Vitamin B Complex
1 tab, Active oral capsule PO, Daily, # 2017 30 cap, 0 Refill(s) Saline Flush 0.9%
10 ml, No Longer Route: IVP, Active 2017 [facility] Drug Form: INJ, Dosing Weight 81.818, kg, PRN, PRN Line Flush, Start date: 03/21/18 0:45:00 CDT, Duration: 30 day, Stop date: 04/20/18 0:44:00 CDT
Notes: (Same as: BD Posiflush) Sodium Chloride
1,000 mL, No Longer 0.9% IV 1,000 mL Rate: 125 Active 2017 ml/hr, Infuse over: 8 hr, Route: IV, Dosing Weight 81.818 kg, Total Volume: 1,000, Start date: 03/21/18 0:45:00 CDT, Duration: 30 day, Stop date: 04/20/18 0:44:00 CDT, 1.96, m2 polyethylene
4,000 mL, Inactive glycol 3350 with Route: PO, 2017 [facility] electrolytes Drug Form: PDR/REC, Dosing Weight 81.818, kg, ONCE, Start date: 03/21/18 0:45:00 CDT, Stop date: 03/21/18 0:45:00 CDT
Notes: (polyethylene glycol electrolyte solution 4 Liter bottle) (Same as: Tavia Meier) Ondansetron
4 mg, 2 Inactive mL, Route: 2017 IVP, Drug form: INJ, ONCE, Dosing Weight 81.818, kg, PRN Nausea & Vomiting, Start date: 03/21/18 0:45:00 CDT
Notes: (Same as: Gosia) MEDICATION WASTE Product Size: 4 mg Product Wasted: ___ mg 24 HR tramadol
100 mg, 2 Inactive hydrochloride 100 tab, Route: 2017 MG Extended PO, Drug form: Release Tablet TAB, Daily, PRN Pain Score 4-6, Start date: 03/21/18 0:45:00 CDT, Duration: 30 day, Stop date: 04/20/18 0:44:00 CDT
Notes: Not to exceed 400mg/day. (Same As: Ultram) Morphine
4 mg, 4 No Longer mL, Route: IV, Active 2017 [facility] Drug form: INJ, Q2H, Dosing Weight 81.818, kg, PRN Pain Score 7-10, Start date: 03/20/18 22:32:00 CDT, Stop date: 04/19/18 22:31:00 CDT
Notes: (Same as: Astramorph-PF) Morphine
4 mg, 1 Inactive mL, Route: 2017 [facility] IVP, Drug form: SOLN, ONCE, Dosing Weight 81.818, kg, Priority: STAT, Start date: 03/20/18 21:08:00 CDT, Stop date: 03/20/18 21:08:00 CDT
Notes: (Same as:MORPhine Sulfate) Saline Flush 0.9%
10 mL, No Longer Route: IVP, 2017 [facility] Drug Form: INJ, Dosing Weight 81.818, kg, PRN, PRN Line Flush, Start date: 03/20/18 21:08:00 CDT, Duration: 30 day, Stop date: 04/19/18 21:07:00 CDT
Notes: (Same as: BD Posiflush) normal saline 0.9%
1,000 mL, Inactive IV 1,000 mL Rate: 1,000 2017 [facility] ml/hr, Infuse over: 1 hr, Route: IV, Dosing Weight 81.818 kg, Total Volume: 1,000, Priority: STAT, Start date: 03/20/18 20:54:00 CDT, Duration: 1 doses or times, Stop date: 03/20/18 21:53:00 CDT, 1.96, m2 Thiamine
100 mg, 1 No Longer tab, Route: Active 2017 [facility] PO, Drug form: TAB, Daily, Dosing Weight 81.818, kg, Start date: 03/19/18 9:00:00 CDT, Duration: 30 day, Stop date: 04/17/18 9:00:00 CDT
Notes: (Same As: Vitamin B1) Morphine
15 mg, 1 Inactive tab, Route: 2017 [facility] PO, Drug form: TAB, Q4H, Dosing Weight 81.818, kg, PRN Pain Score 4-6, Start date: 03/18/18 13:53:00 CDT, Duration: 30 day, Stop date: 04/17/18 13:52:00 CDT
Notes: (Same as:MORPhine Sulfate) thiamine 100 mg
100 mg, No Longer oral tablet PO, Daily, # Active 2017 30 tab, 0 Refill(s), Pharmacy: [facility] [id number] Morphine
10 mg, 5 Inactive mL, Route: PO, 2017 [facility] Drug form: SOLN, Q4H, Dosing Weight 81.818, kg, PRN Pain Score 4-6, Start date: 03/18/18 10:35:00 CDT, Duration: 30 day, Stop date: 04/17/18 10:34:00 CDT
Notes: (Same as:MORPhine Sulfate) amoxicillin 500 mg
500 mg=1 No Longer oral capsule cap, PO, Active 2017 [facility] [id number], # 15 cap, 0 Refill(s), Pharmacy: [facility] [id number] Ciprofloxacin
400 mg, Inactive Route: IVPB, 2017 [id number], Dosing Weight 81.818, kg, Start date: 03/18/18 9:00:00 CDT, Duration: 3 day, Stop date: 03/20/18 21:00:00 CDT, ABX Indication: Urinary Tract Infection Amoxicillin
500 mg, 1 Inactive cap, Route: 2017 [facility] PO, Drug form: CAP, [id number], Dosing Weight 81.818, kg, Start date: 03/18/18 9:00:00 CDT, Duration: 5 day, Stop date: 03/23/18 1:00:00 CDT
Notes: (Same as: Amoxil) Oxycodone
10 mg, 2 No Longer Hydrochloride 5 MG tab, Route: Active 2017 [facility] Oral Tablet PO, Drug form: TAB, Q4H, Dosing Weight 81.818, kg, PRN Pain Score 6-10, Start date: 03/17/18 21:17:00 CDT, Duration: 30 day, Stop date: 04/16/18 21:16:00 CDT
Notes: (Same as: Roxicodone) LR IV 1,000 mL
1,000 mL, No Longer Rate: 250 Active 2017 [facility] ml/hr, Infuse over: 4 hr, Route: IV, Dosing Weight 81.818 kg, Total Volume: 1,000, Start date: 03/17/18 18:47:00 CDT, Duration: 12 hr, Stop date: 03/18/18 6:46:00 CDT, 1.96, m2 Fentanyl
25 Inactive microgram, 2017 Route: IV, ONCE, Dosing Weight 81.818, kg, Start date: 03/17/18 16:53:00 CDT, Stop date: 03/17/18 16:53:00 CDT LR IV 1,000 mL
1,000 mL, Inactive Rate: 250 2017 [facility] ml/hr, Infuse over: 4 hr, Route: IV, Dosing Weight 81.818 kg, Total Volume: 1,000, Start date: 03/17/18 16:08:00 CDT, Duration: 6 hr, Stop date: 03/17/18 22:07:00 CDT, 1.96, m2 Sodium Chloride
1,000 mL, Inactive 0.9% IV 1,000 mL Rate: 25 2017 [facility] ml/hr, Infuse over: 40 hr, Route: IV, Dosing Weight 81.818 kg, Total Volume: 1,000, Start date: 03/17/18 14:26:00 CDT, Duration: 1 day, Stop date: 03/18/18 14:25:00 CDT, 1.96, m2 Fentanyl
50 Inactive microgram, 1 2017 [facility] mL, Route: IV, Drug form: INJ, ONCE, Dosing Weight 81.818, kg, Start date: 03/17/18 14:22:00 CDT, Stop date: 03/17/18 14:22:00 CDT
Notes: (Same as: Sublimaze) Preservative free. Morphine
10 mg, 5 No Longer mL, Route: PO, Active 2017 [facility] Drug form: SOLN, Q4H, Dosing Weight 81.818, kg, PRN Pain Score 4-6, Start date: 03/17/18 9:28:00 CDT, Duration: 30 day, Stop date: 04/16/18 9:27:00 CDT
Notes: (Same as:MORPhine Sulfate) Acetaminophen 33.3
15 ml, Inactive MG/ML / Route: PO, 2017 [facility] Dosing Weight Bitartrate 0.5 81.818, kg, MG/ML Oral Q4H, PRN Pain Solution Score 4-6, Start date: 03/17/18 9:16:00 CDT, Duration: 30 day, Stop date: 04/16/18 9:15:00 CDT D5W 1/2NS + KCL
1,000 mL, No Longer 20mEq/L 1000ml Rate: 75 Active 2017 [facility] (Premix) 1,000 mL ml/hr, Infuse over: 13.3 hr, Route: IV, Dosing Weight 81.818 kg, Total Volume: 1,000, Start date: 03/16/18 10:57:00 CDT, Duration: 30 day, Stop date: 04/15/18 10:56:00 CDT, 1.96, m2
Notes: PREMIX IV - Do Not Alter WASTE: F/P - Sink; E - [employer] [facility] Dilaudid
1 mg, 1 No Longer mL, Route: IV, Active 2017 [facility] Drug form: SOLN, Q4H, Dosing Weight 81.818, kg, PRN Pain Score 7-10, Start date: 03/16/18 10:56:00 CDT, Stop date: 04/15/18 10:55:00 CDT
Notes: (Same as: Dilaudid) Morphine
4 mg, 1 No Longer mL, Route: IV, [facility] 2017 [facility] Drug form: SOLN, Q4H, Dosing Weight 81.818, kg, PRN Pain Score 7-10, Start date: 03/15/18 22:45:00 CDT, Stop date: 04/14/18 22:44:00 CDT
Notes: (Same as:MORPhine Sulfate) Pepcid
20 mg, 1 No Longer tab, Route: [facility] 2017 [facility] PO, Drug form: TAB, Q12H, Dosing Weight 81.818, kg, Start date: 03/15/18 21:00:00 CDT, Duration: 30 day, Stop date: 04/14/18 9:00:00 CDT
Notes: (Same as: Pepcid) Ciprofloxacin
400 mg, No Longer 200 mL, Route: [facility] 2017 [facility] IVPB, Drug form: INJ, [id number], Dosing Weight 81.818, kg, Start date: 03/15/18 19:00:00 CDT, Duration: 3 day, Stop date: 03/18/18 7:00:00 CDT, ABX Indication: Urinary Tract Infection
Notes: Do not refrigerate Sodium Chloride
1,000 mL, No Longer 0.9% IV 1,000 mL + Rate: 75 Active 2017 [facility] M.V.I.-12 10 mL ml/hr, Infuse Daily + folic acid over: 13.5 hr, IV 1 mg Daily + Route: IV, thiamine IV 1 Dosing Weight 81.818 kg, Total Volume: 1,011.2, Start date: 03/15/18 18:07:00 CDT, Duration: 3 day, Stop date: 03/18/18 18:06:00 CDT, 1.96, m2 Zofran
4 mg, 2 No Longer mL, Route: [facility] 2017 [facility] IVP, Drug form: INJ, Q8H, Dosing Weight 81.818, kg, PRN Nausea, Start date: 03/15/18 18:00:00 CDT, Duration: 30 day, Stop date: 04/14/18 17:59:00 CDT
Notes: (Same as: Zofran) MEDICATION WASTE Product Size: 4 mg Product Wasted: ___ mg Morphine
2 mg, 0.5 Inactive mL, Route: 2017 [facility] IVP, Drug form: SOLN, Q4H, Dosing Weight 81.818, kg, PRN Pain Score 7-10, Start date: 03/15/18 18:00:00 CDT, Duration: 30 day, Stop date: 04/14/18 17:59:00 CDT
Notes: (Same as:MORPhine Sulfate) D5W 1/2NS + KCL
1,000 mL, Inactive 20mEq/L 1000ml Rate: 100 2017 [facility] (Premix) 1000 mL ml/hr, Infuse over: 10 hr, Route: IV, Dosing Weight 81.818 kg, Total Volume: 1,000, Start date: 03/15/18 17:59:00 CDT, Duration: 30 day, Stop date: 04/14/18 17:58:00 CDT, 1.96, m2 Zofran
4 mg, Inactive Route: IVP, [address] [place] [address] Drug form: INJ, ONCE, Dosing Weight 84.091, kg, Priority: STAT, Start date: 03/15/18 16:26:00 CDT, Stop date: 03/15/18 16:26:00 CDT Morphine
4 mg, Inactive Route: IVP, 2017 [facility] ONCE, Dosing Weight 84.091, kg, Priority: STAT, Start date: 03/15/18 16:26:00 CDT, Stop date: 03/15/18 16:26:00 CDT Morphine
4 mg, Inactive Route: IVP, 2017 [facility] ONCE, Dosing Weight 84.091, kg, Priority: STAT, Start date: 03/15/18 14:47:00 CDT, Stop date: 03/15/18 14:47:00 CDT NS (Bolus) IV
1,000 mL, Inactive 1,000 ml/hr, 2017 [facility] Infuse Over: 1 hr, Route: IV, 1,000, Drug form: INJ, ONCE, Priority: STAT, Dosing Weight 84.091 kg, Start date: 03/15/18 14:15:00 CDT, Stop date: 03/15/18 14:15:00 CDT Ondansetron
4 mg, Inactive Route: IVP, 2017 [facility] ONCE, Dosing Weight 84.091, kg, Priority: STAT, Start date: 03/15/18 12:01:00 CDT, Stop date: 03/15/18 12:01:00 CDT Morphine
4 mg, Inactive Route: IVP, 2017 [facility] ONCE, Dosing Weight 84.091, kg, Priority: STAT, Start date: 03/15/18 12:01:00 CDT, Stop date: 03/15/18 12:01:00 CDT Saline Flush 0.9%
10 mL, No Longer Route: IVP, Active 2017 [facility] Drug Form: INJ, Dosing Weight 84.091, kg, PRN, PRN Line Flush, Start date: 03/15/18 12:01:00 CDT, Duration: 30 day, Stop date: 04/14/18 12:00:00 CDT
Notes: Same as: BD Posiflush Sterile Sodium Chloride
1,000 mL, Inactive 0.9% (Bolus) IV Infuse Over: 1 2017 [facility] hr, Route: IV, ONCE, Priority: STAT, Dosing Weight 84.091 kg, Start date: 03/15/18 12:01:00 CDT, Stop date: 03/15/18 12:01:00 CDT Dilaudid
0.5 mg, Inactive 0.5 mL, Route: 2018 [place] IVP, Drug form: INJ, Q5Min, Dosing Weight 84.091, kg, Start date: 03/12/18 10:50:00 CDT, Stop date: 04/11/18 10:45:00 CDT
Notes: Same as: Dilaudid ketOROLAC (ANES)
IV, ONCE Inactive 2017 [place] neostigmine (ANES)
Route: Inactive IV, Drug form: 2018 [place] INJ, ONCE, Stop date: 03/12/18 9:51:00 CDT glycopyrrolate
Route: Inactive (ANES) IV, Drug form: 2017 [place] INJ, ONCE, Stop date: 03/12/18 9:51:00 CDT acetaminophen
Route: Inactive (ANES) IV, Drug form: 2017 [place] INJ, ONCE, Stop date: 03/12/18 9:51:00 CDT dexamethasone
Route: Inactive (ANES) IV, Drug form: 2017 [place] INJ, ONCE, Stop date: 03/12/18 9:51:00 CDT ondansetron (ANES)
Route: Inactive IV, Drug form: 2017 [place] INJ, ONCE, Stop date: 03/12/18 9:51:00 CDT cefOXitin (ANES)
Route: Inactive IV, Drug form: 2017 [place] INJ, ONCE, Stop date: 03/12/18 9:48:00 CDT Naloxone
0.4 mg, Inactive Route: IVP, 2017 [place] Q2MIN, Dosing Weight 84.091, kg, PRN Narcotic Reversal, Start date: 03/12/18 9:42:00 CDT, Duration: 8 doses or times, Stop date: Limited # of times Albuterol 0.83
2.49 mg, Inactive MG/ML Inhalant Route: NEB, 2018 [place] Solution Q20Min, Dosing Weight 84.091, kg, PRN Wheezing, Priority: STAT, Start date: 03/12/18 9:42:00 CDT, Duration: 30 day, Stop date: 04/11/18 9:41:00 CDT Diphenhydramine
12.5 mg, Inactive Route: IVP, 2017 [place] Drug form: INJ, Q6H, Dosing Weight 84.091, kg, PRN Itching, Start date: 03/12/18 9:42:00 CDT, Duration: 30 day, Stop date: 04/11/18 9:41:00 CDT Hydromorphone
0.5 mg, Inactive Route: IVP, 2017 [place] Q5Min, Dosing Weight 84.091, kg, PRN Pain Score 7-10, Start date: 03/12/18 9:42:00 CDT, Duration: 4 doses or times, Stop date: Limited # of times Flumazenil
0.2 mg, Inactive Route: IVP, 2017 [place] PRN, Dosing Weight 84.091, kg, PRN Benzodiazepine Reversal, Initial dose, Start date: 03/12/18 9:42:00 CDT, Duration: 30 day, Stop date: 04/11/18 9:41:00 CDT Fentanyl
50 Inactive microgram, 2017 [place] Route: IVP, Q5Min, Dosing Weight 84.091, kg, PRN Pain Score 7-10, Priority: Routine, Start date: 03/12/18 9:42:00 CDT, Duration: 2 doses or times, Stop date: Limited # of times Ondansetron
4 mg, Inactive Route: IVP, 2017 [place] ONCE, Dosing Weight 84.091, kg, PRN Nausea & Vomiting, Start date: 03/12/18 9:42:00 CDT Ketorolac
30 mg, Inactive Route: IVP, 2017 [place] ONCE, Dosing Weight 84.091, kg, Start date: 03/12/18 9:42:00 CDT, Stop date: 03/12/18 9:42:00 CDT Acetaminophen
1,000 mg, Inactive Route: PO, 2017 [place] Drug form: TAB, ONCE, Dosing Weight 84.091, kg, PRN Pain Score 1-3, Start date: 03/12/18 9:42:00 CDT Oxycodone
5 mg, Inactive Route: PO, 2017 [place] Drug form: TAB, Q4H, Dosing Weight 84.091, kg, PRN Pain Score 4-6, Start date: 03/12/18 9:42:00 CDT, Duration: 30 day, Stop date: 04/11/18 9:41:00 CDT Hydralazine
10 mg, Inactive Route: IVP, 2017 [place] Q20Min, Dosing Weight 84.091, kg, PRN Elevated BP, Start date: 03/12/18 9:42:00 CDT, Duration: 2 doses or times, Stop date: Limited # of times Labetalol
10 mg, Inactive Route: IVP, 2017 [place] Q5Min, Dosing Weight 84.091, kg, PRN Elevated BP, Start date: 03/12/18 9:42:00 CDT, Duration: 5 doses or times, Stop date: Limited # of times Acetaminophen 325
1 tab, Inactive MG / Hydrocodone Route: PO, 2017 [place] Bitartrate 5 MG Drug Form: Oral Tablet TAB, Dosing Weight 84.091, kg, Q4H, PRN Pain Score 4-6, Start date: 03/12/18 9:39:00 CDT, Duration: 30 day, Stop date: 04/11/18 9:38:00 CDT
Notes: (Same as: Gould 325/5) Do not exceed 4gm/day of acetaminophen. Acetaminophen 325
1 tab, Inactive MG / Hydrocodone Route: PO, 2017 [place] Bitartrate 10 MG Drug Form: Oral Tablet TAB, Dosing Weight 84.091, kg, Q4H, PRN Pain Score 4-6, Start date: 03/12/18 9:39:00 CDT, Duration: 30 day, Stop date: 04/11/18 9:38:00 CDT
Notes: Do not exceed 4gm/day of acetaminophen. (Same as: Gould 325/10) lidocaine (ANES)
Route: Inactive IV, Drug form: 2017 [place] INJ, ONCE, Stop date: 03/12/18 9:38:00 CDT propofol (ANES)
Route: Inactive IV, Drug form: 2017 [place] INJ, ONCE, Stop date: 03/12/18 9:38:00 CDT rocuronium (ANES)
Route: Inactive IV, Drug form: 2017 [place] INJ, ONCE, Stop date: 03/12/18 9:38:00 CDT fentaNYL (ANES)
Route: Inactive IV, Drug form: 2018 [place] INJ, ONCE, Stop date: 03/12/18 9:23:00 CDT midazolam (ANES)
Route: Inactive IV, Drug form: 2017 [place] SOLN, ONCE, Stop date: 03/12/18 9:23:00 CDT Lactated Ringers
Route: Inactive Injection IV IV, Total 2017 [place] (ANES) 1000 mL Volume: 1,000, Start date: 03/12/18 8:47:00 CDT, Stop date: 03/12/18 9:47:00 CDT Cefoxitin
2 gm, Inactive Route: IVP, 2017 [place] Drug form: INJ, ONCALL, Dosing Weight 84.091, kg, Start date: 03/12/18 7:00:00 CDT, Duration: 1 doses or times, ABX Indication: Surgical Prophylaxis
Notes: (Same As: Mefoxin) MEDICATION WASTE Product Size: 2000 mg Product Wasted: ___ mg Calcium Chloride
1,000 mL, Inactive 0.0014 MEQ/ML / Rate: 25 2017 [place] Potassium Chloride ml/hr, Infuse 0.004 MEQ/ML / over: 40 hr, Sodium Chloride Route: IV, 0.103 MEQ/ML / Dosing Weight Sodium Lactate 84.091 kg, 0.028 MEQ/ML Total Volume: Injectable 1,000, Start Solution date: 03/12/18 6:48:00 CDT, Duration: 30 day, Stop date: 04/11/18 6:47:00 CDT, 1.99, m2 tramadol
50 mg=1 Active hydrochloride 50 tab, PO, Q6H, 2017 [place] MG Oral Tablet PRN Pain, # 12 tab, 0 Refill(s) Ceftriaxone
1 gm, Inactive Route: IV, 2017 [place] ONCE, Dosing Weight 77.2, kg, Priority: STAT, Start date: 02/20/18 16:30:00 CDT, Stop date: 02/20/18 16:30:00 CDT, ABX Indication: Urinary Tract Infection
Notes: (Same As: Rocephin). Use with 100 mL NS and infuse over 30 min MEDICATION WASTE Product Size: 1000 mg Product Wasted: ___ mg Ondansetron
4 mg, 2 Inactive mL, Route: 2017 [place] IVP, Drug form: INJ, ONCE, Dosing Weight 77.2, kg, Priority: STAT, Start date: 02/20/18 12:44:00 CDT, Stop date: 02/20/18 12:44:00 CDT
Notes: (Same as: Zofran) MEDICATION WASTE Product Size: 4 mg Product Wasted: ___ mg Morphine
2 mg, 2 Inactive mL, Route: 2017 [place] IVP, Drug form: SOLN, ONCE, Dosing Weight 77.2, kg, Priority: STAT, Start date: 02/20/18 12:44:00 CDT, Stop date: 02/20/18 12:44:00 CDT
Notes: Preservative free. (Same as: Morphine Sulfate-PF) Saline Flush 0.9%
10 mL, Inactive Route: IVP, 2017 [place] Drug Form: INJ, Dosing Weight 77.2, kg, PRN, PRN Line Flush, Start date: 02/20/18 12:44:00 CDT, Duration: 30 day, Stop date: 03/22/18 12:43:00 CDT
Notes: (Same as: BD Posiflush) Sodium Chloride
1,000 mL, Inactive 0.9% (Bolus) IV 1,000 ml/hr, 2017 [place] Infuse Over: 1 hr, Route: IV, ONCE, Priority: STAT, Dosing Weight 77.2 kg, Start date: 02/20/18 12:44:00 CDT, Stop date: 02/20/18 12:44:00 CDT dicyclomine 20 mg
20 mg=1 No Longer Medical oral tablet tab, PO, QID, Active 2018 [facility] # 40 tab, 0 Refill(s), Pharmacy: [facility] [id number] PARoxetine 30 mg
30 mg=1 No Longer Medical oral tablet tab, PO, Active 2018 [facility] Daily, # 90 tab, 1 Refill(s), Pharmacy: [facility] [id number] dicyclomine 20 mg
40 mg=2 Inactive Medical oral tablet tab, PO, QID, 2018 [facility] PRN Cramps, # 180 tab, 0 Refill(s), Pharmacy: [facility] [id number] PARoxetine 30 mg
30 mg=1 Inactive Medical oral tablet tab, PO, 2018 [facility] Daily, # 30 tab, 2 Refill(s), Pharmacy: [facility] [id number] tramadol
50 mg=1 No Longer hydrochloride 50 tab, PO, Q6H, Active 2018 [place] MG Oral Tablet PRN pain, X 3 [Ultram] day, # 12 tab, 0 Refill(s) Dicyclomine
10 mg=1 No Longer Hydrochloride 10 cap, PO, Active 2018 [place] MG Oral Capsule QID-Before [Bentyl] Meals, # 40 cap, 0 Refill(s) Rocephin
1 gm, Inactive Route: IVPB, 2017 [place] Drug form: PDR/INJ, ONCE, Dosing Weight 79.545, kg, Priority: STAT, Start date: 12/22/17 14:55:00 WATERPROOFING MIXER, Stop date: 12/22/17 14:55:00 WATERPROOFING MIXER, ABX Indication: Urinary Tract Infection NS (Bolus) IV
1,000 mL, Inactive 1,000 ml/hr, 2017 [place] Infuse Over: 1 hr, Route: IV, ONCE, Priority: STAT, Dosing Weight 79.545 kg, Start date: 12/22/17 14:55:00 WATERPROOFING MIXER, Stop date: 12/22/17 14:55:00 WATERPROOFING MIXER Morphine
4 mg, 1 Inactive mL, Route: [address] [place] [address] IVP, Drug form: SOLN, ONCE, Dosing Weight 79.545, kg, Priority: STAT, Start date: 12/22/17 14:00:00 WATERPROOFING MIXER, Stop date: 12/22/17 14:00:00 WATERPROOFING MIXER
Notes: (Same as:MORPhine Sulfate) Fentanyl
50 Inactive microgram, [address] [place] [address] Route: IVP, ONCE, Dosing Weight 79.545, kg, Priority: STAT, Start date: 12/22/17 12:10:00 WATERPROOFING MIXER, Stop date: 12/22/17 12:10:00 WATERPROOFING MIXER Sodium Chloride
1,000 mL, Inactive 0.9% (Bolus) IV 1000 ml/hr, 2017 [place] Infuse Over: 1 hr, Route: IV, 1,000, Drug form: INJ, ONCE, Priority: STAT, Dosing Weight 79.545 kg, Start date: 12/22/17 11:01:00 WATERPROOFING MIXER, Stop date: 12/22/17 11:01:00 WATERPROOFING MIXER Ondansetron
4 mg, 2 Inactive mL, Route: [address] [place] [address] IVP, Drug form: INJ, ONCE, Dosing Weight 79.545, kg, Priority: STAT, Start date: 12/22/17 11:01:00 WATERPROOFING MIXER, Stop date: 12/22/17 11:01:00 WATERPROOFING MIXER
Notes: (Same as: Gosia) MEDICATION WASTE Product Size: 4 mg Product Wasted: ___ mg tramadol
50 mg=1 No Longer Medical hydrochloride 50 tab, PO, Q6H, Active 2017 [facility] MG Oral Tablet PRN Pain, # 30 tab, 0 Refill(s) dicyclomine 20 mg
20 mg=1 No Longer Medical oral tablet tab, PO, QID, Active 2017 Group PRN abdominal cramps, # 50 tab, 0 Refill(s), Pharmacy: [facility] [id number] albuterol 90
2 puff, Active Medical mcg/inh inhalation INHALATION, 2018 [facility] aerosol QID, # 34 gm, 0 Refill(s), Pharmacy: [facility] [id number] PARoxetine 20 mg
20 mg=1 No Longer Medical oral tablet tab, PO, Active 2017 [facility] Daily, # 30 tab, 5 Refill(s), Pharmacy: [facility] [id number] tramadol
50 mg=1 No Longer Medical hydrochloride 50 tab, PO, Q6H, Active 2017 [facility] MG Oral Tablet PRN Pain, # 40 tab, 0 Refill(s) Ativan
1 mg, 2 No Longer tab, Route: Active 2017 [facility] PO, Drug form: TAB, BID, Dosing Weight 80.955, kg, PRN Anxiety, Start date: 11/25/17 17:23:00 WATERPROOFING MIXER, Duration: 30 day, Stop date: 12/25/17 17:22:00 WATERPROOFING MIXER
Notes: (Same as: Ativan) Dicyclomine
20 mg, 2 No Longer cap, Route: Active 2017 [facility] PO, Drug form: CAP, QID, Dosing Weight 80.955, kg, Start date: 11/25/17 17:00:00 WATERPROOFING MIXER, Duration: 30 day, Stop date: 12/25/17 13:00:00 WATERPROOFING MIXER
Notes: (Same as: Bentyl) pantoprazole 40 MG
40 mg=1 No Longer Enteric Coated tab, PO, Active 2017 [facility] Tablet [Protonix] Daily, # 30 tab, 0 Refill(s), Pharmacy: [facility] [id number] dicyclomine 20 mg
20 mg=1 No Longer oral tablet tab, PO, QID, Active 2017 [facility] PRN abdominal cramps, X 14 day, # 50 tab, 0 Refill(s), Pharmacy: [facility] [id number] Promethazine
12.5 mg=1 No Longer Hydrochloride 12.5 tab, PO, Q6H, Active 2017 [facility] Oral Tablet PRN Nausea & [Phenergan] Vomiting, # 28 tab, 0 Refill(s), Pharmacy: [facility] [id number] metoprolol
25 mg, 1 No Longer tartrate tab, Route: Active 2017 [facility] PO, Drug form: TAB, Q12H, Dosing Weight 81.818, kg, Start date: 11/22/17 13:00:00 WATERPROOFING MIXER, Duration: 30 day, Stop date: 12/22/17 9:00:00 WATERPROOFING MIXER
Notes: (Same as: Lopressor) Sodium Chloride
1,000 mL, Inactive 0.9% IV 1000 mL Rate: 2017 ml/hr, Infuse over: 40 hr, Route: IV, Dosing Weight 81.818 kg, Total Volume: 1,000, Start date: 11/22/17 9:48:00 WATERPROOFING MIXER, Duration: 30 day, Stop date: 12/22/17 9:47:00 WATERPROOFING MIXER, 1.96, m2 Morphine
4 mg, 1 Inactive mL, Route: 2017 [facility] IVP, Drug form: SOLN, ONCE, Dosing Weight 81.818, kg, Start date: 11/22/17 8:12:00 WATERPROOFING MIXER, Stop date: 11/22/17 8:12:00 WATERPROOFING MIXER
Notes: (Same as:MORPhine Sulfate) Protonix
40 mg, 1 No Longer tab, Route: Active 2017 [facility] PO, Drug form: ECTAB, Before Dinner, Dosing Weight 81.818, kg, Start date: 11/21/17 16:30:00 WATERPROOFING MIXER, Duration: 30 day, Stop date: 12/20/17 16:30:00 WATERPROOFING MIXER
Notes: Tablet should not be chewed or crushed. (Same as: Protonix) Phenergan
12.5 mg, No Longer 1 tab, Route: Active 2017 [facility] PO, Drug form: TAB, Q6H, Dosing Weight 81.818, kg, PRN Nausea, Start date: 11/21/17 14:46:00 WATERPROOFING MIXER, Duration: 30 day, Stop date: 12/21/17 14:45:00 WATERPROOFING MIXER
Notes: (Same as: Phenergan) Morphine
2 mg, 1 Inactive mL, Route: 2017 [facility] IVP, Drug form: SOLN, ONCE, Dosing Weight 81.818, kg, Start date: 11/21/17 13:02:00 WATERPROOFING MIXER, Stop date: 11/21/17 13:02:00 WATERPROOFING MIXER Reglan
10 mg, 2 No Longer mL, Route: Active 2017 [facility] IVP, Drug form: SOLN, Q6H, Dosing Weight 81.818, kg, Start date: 11/21/17 12:00:00 WATERPROOFING MIXER, Duration: 1 day, Stop date: 11/22/17 6:00:00 WATERPROOFING MIXER
Notes: (Same as: Reglan) Tylenol
1,000 mg, No Longer 31.23 mL, Active 2017 [facility] Route: PO, Drug form: LIQ, Q6H, PRN Pain Score 1-5, Start date: 11/21/17 10:50:00 WATERPROOFING MIXER, Duration: 30 day, Stop date: 12/21/17 10:49:00 WATERPROOFING MIXER
Notes: Max acetaminophen= 4000mg/day (4 gm/day). (Same as: Tylenol) Protonix
40 mg, Inactive Route: IVP, 2017 [facility] Drug form: INJ, ONCE, Dosing Weight 81.818, kg, Start date: 11/21/17 10:14:00 WATERPROOFING MIXER, Stop date: 11/21/17 10:14:00 WATERPROOFING MIXER Rocephin
1 gm, No Longer Route: IVP, Active 2017 [facility] [id number], Dosing Weight 81.818, kg, Start date: 11/21/17 6:00:00 WATERPROOFING MIXER, Duration: 3 day, Stop date: 11/23/17 6:00:00 WATERPROOFING MIXER, ABX Indication: Urinary Tract Infection
Notes: (Same As: Rocephin). Use with 100 mL NS and infuse over 30 min MEDICATION WASTE Product Size: 1000 mg Product Wasted: ___ mg Dilaudid
1 mg, 1 No Longer mL, Route: Active 2017 [facility] IVP, Drug form: INJ, ONCE, Dosing Weight 81.818, kg, Priority: STAT, Start date: 11/20/17 23:50:00 WATERPROOFING MIXER, Stop date: 11/20/17 23:50:00 WATERPROOFING MIXER
Notes: Same as: Dilaudid Dilaudid
6 mg, 3 No Longer tab, Route: Active 2017 [facility] PO, Drug form: TAB, Q4H, Dosing Weight 81.818, kg, PRN Pain Score 6-10, Start date: 11/20/17 22:28:00 WATERPROOFING MIXER, Duration: 30 day, Stop date: 12/20/17 22:27:00 WATERPROOFING MIXER
Notes: (Same as: Dilaudid) Acetaminophen
1,000 mg, Inactive Route: PO, 2017 [facility] Q6Hnow, Dosing Weight 81.818, kg, Start date: 11/20/17 21:00:00 WATERPROOFING MIXER, Duration: 30 day, Stop date: 12/20/17 15:00:00 WATERPROOFING MIXER Ketorolac
30 mg, 1 No Longer mL, Route: Active 2017 [facility] IVP, Drug form: INJ, Q6Hnow, Dosing Weight 81.818, kg, Start date: 11/20/17 21:00:00 WATERPROOFING MIXER, Duration: 24 hr, Stop date: 11/21/17 15:00:00 WATERPROOFING MIXER
Notes: (Same as:Toradol) IV bolus must be given >15 seconds. Give IM administration slowly and deeply into the muscle. Not for use > 4 days MEDICATION WASTE Product Size: 30 mg Product Wasted: ___ mg Fentanyl
50 Inactive microgram, 1 2017 [facility] mL, Route: IV, Drug form: INJ, ONCE, Dosing Weight 81.818, kg, Priority: STAT, Start date: 11/20/17 20:55:00 WATERPROOFING MIXER, Stop date: 11/20/17 20:55:00 WATERPROOFING MIXER
Notes: (Same as: Sublimaze) Preservative free. Acetaminophen
1,000 mg, No Longer 100 mL, Route: [facility] 2017 [facility] IV, Drug form: INJ, Q6H, Dosing Weight 81.818, kg, PRN Pain Score 1-5, Start date: 11/20/17 20:25:00 WATERPROOFING MIXER, Duration: 30 day, Stop date: 12/20/17 20:24:00 WATERPROOFING MIXER
Not es: Infuse over 15 minutes Do not exceed 4gm/day of acetaminophen MEDICATION WASTE Product Size: 1000 mg Product Wasted: ___ mg Saline Flush 0.9%
10 ml, No Longer Route: IVP, [address] Drug Form: INJ, Dosing Weight 81.818, kg, PRN, PRN Line Flush, Start date: 11/20/17 20:22:00 WATERPROOFING MIXER, Duration: 30 day, Stop date: 12/20/17 20:21:00 WATERPROOFING MIXER
Notes: (Same as: BD Posiflush) Sodium Chloride
1,000 mL, No Longer 0.9% IV 1,000 mL Rate: 60 Active 2017 [facility] ml/hr, Infuse over: 16.7 hr, Route: IV, Dosing Weight 80.955 kg, Total Volume: 1,000, Start date: 11/20/17 20:22:00 WATERPROOFING MIXER, Stop date: 12/20/17 20:21:00 WATERPROOFING MIXER, 1.95, m2 Morphine
4 mg, 1 No Longer mL, Route: [facility] 2017 [facility] IVP, Drug form: SOLN, Q4H, Dosing Weight 81.818, kg, PRN Pain Score 7-10, Start date: 11/20/17 20:22:00 [employer], Duration: 30 day, Stop date: 12/20/17 20:21:00 [employer]
Notes: (Same as:MORPhine Sulfate) Ondansetron
4 mg, 2 No Longer mL, Route: [facility] 2017 [facility] IVP, Drug form: INJ, Q6H, Dosing Weight 81.818, kg, PRN Nausea & Vomiting, Start date: 11/20/17 20:22:00 [employer], Duration: 30 day, Stop date: 12/20/17 20:21:00 [employer]
Not es: (Same as: Zofran) MEDICATION WASTE Product Size: 4 mg Product Wasted: ___ mg NS (Bolus) IV
2,000 mL, Inactive 2000 ml/hr, 2017 [facility] Infuse Over: 1 hr, Route: IV, 2,000, Drug form: INJ, ONCE, Priority: STAT, Dosing Weight 81.818 kg, Start date: 11/20/17 19:31:00 [employer], Stop date: 11/20/17 19:31:00 [employer] Fentanyl
100 Inactive microgram, 2017 [facility] Route: IVP, ONCE, Dosing Weight 81.818, kg, Priority: STAT, Start date: 11/20/17 19:08:00 [employer], Stop date: 11/20/17 19:08:00 [employer] Fentanyl
100 Inactive microgram, 2017 [facility] Route: IVP, ONCE, Dosing Weight 81.818, kg, Priority: STAT, Start date: 11/20/17 15:58:00 [employer], Stop date: 11/20/17 15:58:00 [employer] Zofran
4 mg, 2 Inactive mL, Route: 2017 [facility] IVP, Drug form: INJ, ONCE, Dosing Weight 81.818, kg, Priority: STAT, Start date: 11/20/17 15:26:00 WATERPROOFING MIXER, Stop date: 11/20/17 15:26:00 WATERPROOFING [employer]IXER
Notes: (Same as: Zofran) MEDICATION WASTE Product Size: 4 mg Product Wasted: ___ mg Morphine
4 mg, 2 Inactive mL, Route: 2017 [facility] IVP, Drug form: SOLN, ONCE, Dosing Weight 81.818, kg, Priority: STAT, Start date: 11/20/17 15:25:00 WATERPROOFING MIXER, Stop date: 11/20/17 15:25:00 W[employer]PROO[employer]ING [employer]IXER 24 HR tramadol
100 mg=1 Active hydrochloride 100 tab, PO, 2016 MG Extended Daily, # 30 Release Tablet tab, 0 [Ultram] Refill(s) Potassium Chloride
20 mEq, Inactive 100 mL, Route: 2016 [facility] IVPB, Drug form: INJ, ONCE, Dosing Weight 81.818, kg, Start date: 07/05/17 8:42:00 CDT, Stop date: 07/05/17 8:42:00 CDT
Notes: (Same as: KCL) Infuse no faster than 10 mEq/hr if given peripherally. Saline Flush 0.9%
10 ml, Inactive Route: IVP, 2016 [facility] Drug Form: INJ, Dosing Weight 81.818, kg, PRN, PRN Line Flush, Start date: 07/05/17 0:44:00 CDT, Duration: 30 day, Stop date: 08/04/17 0:43:00 CDT
Notes: (Same as: BD Posiflush) Lactated Ringers
1,000 mL, Inactive 1,000 mL Rate: 125 2016 [facility] ml/hr, Infuse over: 8 hr, Route: IV, Dosing Weight 81.818 kg, Total Volume: 1,000, Start date: 07/05/17 0:44:00 CDT, Duration: 30 day, Stop date: 08/04/17 0:43:00 CDT Ondansetron
4 mg, 2 Inactive mL, Route: 2016 [facility] IVP, Drug form: INJ, Q6H, Dosing Weight 81.818, kg, PRN Nausea & Vomiting, Start date: 07/05/17 0:44:00 CDT, Duration: 30 day, Stop date: 08/04/17 0:43:00 CDT
Not es: (Same as: Zofran) MEDICATION WASTE Product Size: 4 mg Product Wasted: ___ mg Acetaminophen 325
1 tab, Inactive MG / Hydrocodone Route: PO, 2016 [facility] Bitartrate 5 MG Drug Form: Oral Tablet TAB, Dosing Weight 81.818, kg, Q4H, PRN Pain Score 4-6, Start date: 07/05/17 0:44:00 CDT, Duration: 30 day, Stop date: 08/04/17 0:43:00 CDT
Notes: (Same as: Gould 325/5) Do not exceed 4gm/day of acetaminophen. Ketorolac
30 mg, 1 Inactive mL, Route: 2016 [facility] IVP, Drug form: INJ, ONCE, Dosing Weight 81.818, kg, Priority: STAT, Start date: 07/04/17 22:35:00 CDT, Stop date: 07/04/17 22:35:00 CDT
Notes: (Same as:Toradol) IV bolus must be given >15 seconds. Give IM administration slowly and deeply into the muscle. Not for use > 4 days MEDICATION WASTE Product Size: 30 mg Product Wasted: ___ mg Morphine
4 mg, 1 Inactive mL, Route: 2016 [facility] IVP, Drug form: SOLN, ONCE, Dosing Weight 81.818, kg, Priority: STAT, Start date: 07/04/17 22:28:00 CDT, Stop date: 07/04/17 22:28:00 CDT
Notes: (Same as:MORPhine Sulfate) Ceftriaxone
1 gm, Inactive Route: IVPB, 2016 [facility] ONCE, Dosing Weight 81.818, kg, Priority: STAT, Start date: 07/04/17 22:28:00 CDT, Duration: 1 doses or times, Stop date: 07/04/17 22:28:00 CDT, ABX Indication: Urinary Tract Infection
Notes: (Same As: Rocephin). Use with 100 mL NS and infuse over 30 min MEDICATION WASTE Product Size: 1000 mg Product Wasted: ___ mg Dilaudid
1.5 mg, No Longer 1.5 mL, Route: Active 2016 [facility] IVP, Drug form: INJ, Q3H, Dosing Weight 81.818, kg, PRN Pain Score 7-10, Start date: 07/04/17 22:11:00 CDT, Stop date: 08/03/17 22:10:00 CDT Ondansetron
4 mg, 2 Inactive mL, Route: 2016 [facility] IVP, Drug form: INJ, ONCE, Dosing Weight 81.818, kg, Priority: STAT, Start date: 07/04/17 21:21:00 CDT, Stop date: 07/04/17 21:21:00 CDT
Notes: (Same as: Zofran) MEDICATION WASTE Product Size: 4 mg Product Wasted: ___ mg Sodium Chloride
1,000 mL, Inactive 0.9% (Bolus) IV 1000 ml/hr, 2016 [facility] Infuse Over: 1 hr, Route: IV, 1,000, Drug form: INJ, ONCE, Priority: STAT, Dosing Weight 81.818 kg, Start date: 07/04/17 21:21:00 CDT, Duration: 1 doses or times, Stop date: 07/04/17 21:21:00 CDT Dilaudid
1 mg, 1 Inactive mL, Route: 2016 [facility] IVP, Drug form: INJ, ONCE, Dosing Weight 81.818, kg, Priority: STAT, Start date: 07/04/17 20:35:00 CDT, Stop date: 07/04/17 20:35:00 CDT Dilaudid
0.5 mg, Inactive 0.5 mL, Route: 2016 [facility] IVP, Drug form: INJ, ONCE, Dosing Weight 81.818, kg, Priority: STAT, Start date: 07/04/17 19:48:00 CDT, Stop date: 07/04/17 19:48:00 CDT tramadol
100 mg=2 Active MH hydrochloride 50 tab, PO, Q6H, 2016 [facility] MG Oral Tablet PRN pain, X 3 [Ultram] day, # 24 tab, 0 Refill(s) Ondansetron 4 MG
4 mg=1 Active 03/27/ MH Disintegrating tab, PO, BID, 2017 [facility] Tablet [Zofran] PRN Nausea and Vomiting, Dissolve tab under tongue, X 3 day, # 6 tab, 0 Refill(s) Cyclobenzaprine
10 mg, Active 03/27/ MH hydrochloride 10 PO, TID, PRN 2016 [facility] MG Oral Tablet Muscle Spasm, [Flexeril] X 5 day, # 20 tab, 0 Refill(s) Zofran
4 mg, Inactive Route: IVP, 2016 [facility] Drug form: INJ, ONCE, Dosing Weight 75, kg, Priority: STAT, Start date: 03/27/17 10:57:00 CDT, Stop date: 03/27/17 10:57:00 CDT Dilaudid
0.5 mg, Inactive Route: IV, 2016 [facility] ONCE, Dosing Weight 75, kg, Start date: 03/27/17 10:57:00 CDT, Stop date: 03/27/17 10:57:00 CDT Morphine
4 mg, Inactive Route: IVP, 2016 [facility] ONCE, Dosing Weight 75, kg, Start date: 03/27/17 9:01:00 CDT, Stop date: 03/27/17 9:01:00 CDT Sodium Chloride
1,000 mL, Inactive 0.154 MEQ/ML 1,000 ml/hr, 2016 [facility] Injectable Infuse Over: 1 Solution hr, Route: IV, ONCE, Priority: STAT, Dosing Weight 75 kg, Start date: 03/27/17 9:01:00 CDT, Duration: 1 doses or times, Stop date: 03/27/17 9:01:00 CDT Zofran
4 mg, Inactive Route: IVP, 2016 [facility] Drug form: INJ, ONCE, Dosing Weight 75, kg, Priority: STAT, Start date: 03/27/17 9:01:00 CDT, Stop date: 03/27/17 9:01:00 CDT Sulfamethoxazole
1 tab, Active 800 MG / PO, BID, X 14 2016 [facility] Trimethoprim 160 day, # 28 tab, MG Oral Tablet 0 Refill(s), [Bactrim] Pharmacy: [facility] [id number] 24 HR tramadol
100 mg=1 Active hydrochloride 100 tab, PO, 2016 [facility] MG Extended Daily, # 30 Release Tablet tab, 0 [Ultram] Refill(s) Norvasc
5 mg, 1 Inactive tab, Route: 2016 [facility] PO, Drug form: TAB, Daily, Dosing Weight 71.364, kg, Priority: NOW, Start date: 01/27/17 10:31:00 CDT, Duration: 30 day, Stop date: 02/26/17 9:00:00 CDT
Notes: (Same as: Norvasc) Protonix
40 mg, 1 No Longer tab, Route: Active 2016 [facility] PO, Drug form: ECTAB, Before Breakfast, Dosing Weight 71.364, kg, Start date: 01/26/17 7:30:00 CDT, Duration: 30 day, Stop date: 02/24/17 7:30:00 CDT
Notes: Tablet should not be chewed or crushed. (Same as: Protonix) PHOS-NaK
1 pkt, No Longer Route: PO, Active 2016 [facility] Drug Form: PDR/REC, Dosing Weight 71.364, kg, TID-Before Meals, Start date: 01/25/17 23:30:00 CDT, Stop date: 01/26/17 23:30:00 CDT
Notes: (Same as: Phos-NaK) Each 1.5 gm pkt has 250mg phosphorous. Mix w/2.5oz water and stir. Hydralazine
10 mg, No Longer 0.5 mL, Route: Active 2016 [facility] IVP, Drug form: INJ, Q6H, Dosing Weight 71.364, kg, PRN Elevated BP, Start date: 01/25/17 23:11:00 CDT, Duration: 30 day, Stop date: 02/24/17 23:10:00 CDT
Notes: (Same as: Apresoline) Push over 5 minutes Sodium Chloride
1,000 mL, No Longer 0.154 MEQ/ML Rate: 75 Active 2016 [facility] Injectable ml/hr, Infuse Solution over: 13.3 hr, Route: IV, Dosing Weight 71.364 kg, Total Volume: 1,000, Start date: 01/25/17 23:09:00 CDT, Duration: 30 day, Stop date: 02/24/17 23:08:00 CDT nitroglycerin 0.4
0.4 mg, 1 No Longer mg sublingual tab, Route: Active 2016 [facility] tablet SL, Drug form: TAB, Q5Min, PRN Chest Pain, Start date: 01/25/17 6:30:00 CDT, Duration: 30 day, Stop date: 02/24/17 6:29:00 CDT
Notes: (Same as:Nitroquick, Nitrostat) "Do Not Crush" Sublingual tablet atropine
0.5 mg, 5 No Longer mL, Route: Active 2016 [facility] IVP, Drug form: INJ, PRN, PRN Bradycardia, Start date: 01/25/17 6:30:00 CDT, Duration: 30 day, Stop date: 02/24/17 6:29:00 CDT Rocephin
1 gm, No Longer Route: IVPB, Active 2016 [facility] [id number], Dosing Weight 71.364, kg, Start date: 01/25/17 5:00:00 CDT, Duration: 30 day, Stop date: 02/23/17 5:00:00 CDT
Notes: (Same As: Rocephin). Use with 100 mL NS and infuse over 30 min MEDICATION WASTE Product Size: 1000 mg Product Wasted: ___ mg Pepcid
20 mg, 1 No Longer tab, Route: [facility] 2016 [facility] PO, Drug form: TAB, BID, Dosing Weight 71.364, kg, Start date: 01/24/17 17:00:00 CDT, Duration: 30 day, Stop date: 02/23/17 9:00:00 CDT
Notes: (Same as: Pepcid) Sodium Chloride
1,000 mL, No Longer 0.154 MEQ/ML Rate: 125 Active 2016 [facility] Injectable ml/hr, Infuse Solution over: 8 hr, Route: IV, Dosing Weight 71.364 kg, Total Volume: 1,000, Start date: 01/24/17 5:41:00 CDT, Duration: 30 day, Stop date: 02/23/17 5:40:00 CDT Saline Flush 0.9%
10 ml, No Longer Route: IVP, Active 2016 [facility] Drug Form: INJ, Dosing Weight 71.364, kg, PRN, PRN Line Flush, Start date: 01/24/17 5:41:00 CDT, Duration: 30 day, Stop date: 02/23/17 5:40:00 CDT
Notes: (Same as: BD Posiflush) Acetaminophen 325
2 tab, No Longer MG / Hydrocodone Route: PO, Active 2016 [facility] Bitartrate 5 MG Drug Form: Oral Tablet TAB, Dosing Weight 71.364, kg, Q4H, PRN Pain Score 7-10, Start date: 01/24/17 5:41:00 CDT, Duration: 30 day, Stop date: 02/23/17 5:40:00 CDT
Notes: (Same as: Gould 325/5) Do not exceed 4gm/day of acetaminophen. Ondansetron
4 mg, 2 No Longer mL, Route: Active 2016 [facility] IVP, Drug form: INJ, Q6H, Dosing Weight 71.364, kg, PRN Nausea & Vomiting, Start date: 01/24/17 5:41:00 CDT, Duration: 30 day, Stop date: 02/23/17 5:40:00 CDT
Not es: (Same as: Zofran) MEDICATION WASTE Product Size: 4 mg Product Wasted: ___ mg Docusate
100 mg, 1 No Longer cap, Route: Active 2016 [facility] PO, Drug form: CAP, BID, Dosing Weight 71.364, kg, PRN Constipation, Start date: 01/24/17 5:41:00 CDT, Duration: 30 day, Stop date: 02/23/17 5:40:00 CDT
Notes: (Same as: Colace) (Do Not Crush) Morphine
2 mg, 1 No Longer mL, Route: Active 2016 [facility] IVP, Drug form: INJ, Q4H, Dosing Weight 71.364, kg, PRN Pain Score 7-10, Start date: 01/24/17 5:41:00 CDT, Duration: 30 day, Stop date: 02/23/17 5:40:00 CDT
Notes: (Same as:MORPhine Sulfate) Morphine
4 mg, 1 Inactive mL, Route: 2016 [facility] IVP, Drug form: SOLN, ONCE, Dosing Weight 71.364, kg, Priority: STAT, Start date: 01/24/17 4:56:00 CDT, Stop date: 01/24/17 4:56:00 CDT
Notes: (Same as:MORPhine Sulfate) Ceftriaxone
1 gm, Inactive Route: IVPB, 2016 [facility] ONCE, Dosing Weight 71.364, kg, Priority: STAT, Start date: 01/24/17 3:31:00 CDT, Stop date: 01/24/17 3:31:00 CDT
Notes: (Same As: Rocephin). Use with 100 mL NS and infuse over 30 min MEDICATION WASTE Product Size: 1000 mg Product Wasted: ___ mg Ondansetron
4 mg, Inactive Route: IVP, 2016 [facility] Drug form: INJ, ONCE, Dosing Weight 71.364, kg, Priority: STAT, Start date: 01/24/17 2:29:00 CDT, Stop date: 01/24/17 2:29:00 CDT Sodium Chloride
1,000 mL, Inactive 0.154 MEQ/ML Infuse Over: 1 2016 [facility] Injectable hr, Route: IV, Solution ONCE, Priority: STAT, Dosing Weight 71.364 kg, Start date: 01/24/17 2:29:00 CDT, Duration: 1 doses or times, Stop date: 01/24/17 2:29:00 CDT Morphine
4 mg, Inactive Route: IVP, 2016 [facility] ONCE, Dosing Weight 71.364, kg, Priority: STAT, Start date: 01/24/17 2:29:00 CDT, Stop date: 01/24/17 2:29:00 CDT Cephalexin 500 MG
500 mg=1 Active Oral Capsule cap, PO, Q8H, 2016 [Keflex] X 14 day, # 42 cap, 0 Refill(s) ibuprofen 800 mg
800 mg=1 Active oral tablet tab, PO, Q6H, 2016 PRN Fever or Pain, Take with food, X 10 day, # 40 tab, 0 Refill(s) Phenazopyridine
200 mg=1 No Longer hydrochloride 200 tab, PO, TID, Active 2016 [facility] MG Oral Tablet PRN Dysuria, X [Pyridium] 2 day, # 6 tab, 0 Refill(s) Promethazine
25 mg=1 Active Hydrochloride 25 tab, PO, Q6H, 2016 [facility] MG Oral Tablet PRN Nausea/Vomitin g, X 3 day, # 12 tab, 0 Refill(s) tramadol
50 mg=1 Active hydrochloride 50 tab, PO, Q6H, 2016 [facility] MG Oral Tablet PRN pain, X 4 [Ultram] day, # 16 tab, 0 Refill(s) Acetaminophen 325
1 tab, Inactive MG / Hydrocodone Route: PO, 2016 [facility] Bitartrate 10 MG Drug Form: Oral Tablet TAB, Dosing Weight 71.364, kg, ONCE, STAT, Start date: 01/23/17 4:52:00 CDT, Stop date: 01/23/17 4:52:00 CDT
Notes: Do not exceed 4gm/day of acetaminophen. (Same as: Gould 325/10) Ceftriaxone
1 gm, Inactive Route: IVPB, 2016 [facility] ONCE, Dosing Weight 71.364, kg, Priority: STAT, Start date: 01/23/17 3:10:00 CDT, Stop date: 01/23/17 3:10:00 CDT
Notes: (Same As: Rocephin). Use with 100 mL NS and infuse over 30 min MEDICATION WASTE Product Size: 1000 mg Product Wasted: ___ mg Ondansetron
4 mg, 2 Inactive mL, Route: 2016 [facility] IVP, Drug form: INJ, ONCE, Dosing Weight 71.364, kg, Priority: STAT, Start date: 01/23/17 3:09:00 CDT, Stop date: 01/23/17 3:09:00 CDT
Notes: (Same as: Zofran) MEDICATION WASTE Product Size: 4 mg Product Wasted: ___ mg Morphine
4 mg, 1 Inactive 01/23/ MH mL, Route: 2017 [facility] IVP, Drug form: SOLN, ONCE, Dosing Weight 71.364, kg, Priority: STAT, Start date: 01/23/17 3:09:00 CDT, Stop date: 01/23/17 3:09:00 CDT
Notes: (Same as:MORPhine Sulfate) Sodium Chloride
1,000 mL, Inactive 01/23/ MH 0.154 MEQ/ML 1000 ml/hr, 2017 [facility] Injectable Infuse Over: 1 Solution hr, Route: IV, 1,000, Drug form: INJ, ONCE, Priority: STAT, Dosing Weight 71.364 kg, Start date: 01/23/17 3:09:00 CDT, Duration: 1 doses or times, Stop date: 01/23/17 3:09:00 CDT Morphine
4 mg, 1 No Longer 01/23/ MH mL, Route: Active 2016 [facility] IVP, Drug form: SOLN, ONCE, Dosing Weight 71.364, kg, Priority: STAT, Start date: 01/22/17 21:41:00 CDT, Stop date: 01/22/17 21:41:00 CDT
Notes: (Same as:MORPhine Sulfate) Sodium Chloride
1,000 mL, No Longer /16/ MH 0.154 MEQ/ML 1,000 ml/hr, Active 2016 [facility] Injectable Infuse Over: 1 Solution hr, Route: IV, 1,000, Drug form: INJ, ONCE, Priority: STAT, Dosing Weight 71.364 kg, Start date: 01/22/17 21:41:00 CDT, Duration: 1 doses or times, Stop date: 01/22/17 21:41:00 CDT Zofran
4 mg, 2 No Longer /16/ MH mL, Route: Active 2016 [facility] IVP, Drug form: INJ, ONCE, Dosing Weight 71.364, kg, Start date: 01/22/17 21:41:00 CDT, Stop date: 01/22/17 21:41:00 CDT
Notes: (Same as: Gosia) MEDICATION WASTE Product Size: 4 mg Product Wasted: ___ mg Crutches
1 ea, Active MISC, Daily, # 2017 [facility] 1 Pair, 0 Refill(s) tramadol
100 mg=2 Active hydrochloride 50 tab, PO, Q6H, 2016 [facility] MG Oral Tablet PRN pain, X 5 [Ultram] day, # 30 tab, 0 Refill(s) Acetaminophen 300
1 - 2 Active MG / Codeine tab, PO, Q4H, 2016 [facility] Phosphate 30 MG PRN Pain, X 5 Oral Tablet day, # 24 tab, [Tylenol with 0 Refill(s) Codeine #3] Acetaminophen 325
1 tab, Inactive MG / Hydrocodone Route: PO, 2016 [facility] Bitartrate 10 MG Drug Form: Oral Tablet [Gould TAB, Dosing ] Weight 81.818, kg, ONCE, Start date: 11/21/16 20:55:00 WATERPROOFING MIXER, Stop date: 11/21/16 20:55:00 WATERPROOFING MIXER
Notes: Do not exceed 4gm/day of acetaminophen. (Same as: Gould 325/10) acetaminophen-code
1 tab, Inactive ine #3 Route: PO, 2015 [facility] Drug Form: City TAB, Dosing Weight 81.818, kg, ONCE, STAT, Start date: 10/31/16 0:39:00 WATERPROOFING MIXER, Stop date: 10/31/16 0:39:00 WATERPROOFING MIXER
Notes: Do not exceed 4gm/day of acetaminophen. (Same as: Tylenol with Codeine # 3) Ciprofloxacin 500
500 mg=1 Active MG Oral Tablet tab, PO, Q12H, 2015 [facility] [Cipro] X 10 day, # 20 City tab, 0 Refill(s), Pharmacy: [facility] [id number] Ondansetron 8 MG
8 mg=1 Active Disintegrating tab, PO, TID, 2015 [facility] Tablet [Zofran] PRN Nausea and City Vomiting, Dissolve tab under tongue, X 4 day, # 10 tab, 0 Refill(s), Pharmacy: [facility] [id number] Acetaminophen 300
1 - 2 Active MG / Codeine tab, PO, Q4H, 2016 [facility] Phosphate 30 MG PRN Pain, X 3 City Oral Tablet day, # 20 tab, [Tylenol with 0 Refill(s) Codeine #3] Morphine
2 mg, Inactive Route: IVP, 2015 [facility] ONCE, Dosing [facility] Weight 81.818, kg, Priority: STAT, Start date: 10/30/16 22:50:00 WATERPROOFING MIXER, Stop date: 10/30/16 22:50:00 W[employer]PROO[employer]ING [employer]ER Ketorolac
15 mg, Inactive Route: IVP, 2015 [facility] ONCE, Dosing [facility] Weight 81.818, kg, Priority: STAT, Start date: 10/30/16 21:59:00 WATERPROOFING MIXER, Stop date: 10/30/16 21:59:00 W[employer]PROOFING [employer]ER Ondansetron
4 mg, Inactive Route: IVP, 2015 [facility] ONCE, Dosing [facility] Weight 81.818, kg, Priority: STAT, Start date: 10/30/16 21:59:00 WATERPROOFING MIXER, Stop date: 10/30/16 21:59:00 WATERPROOFING [employer]ER Sodium Chloride
1,000 mL, Inactive 0.154 MEQ/ML 2,000 ml/hr, 2015 [facility] Injectable Infuse Over: City Solution 30 minutes, Route: IV, ONCE, Priority: STAT, Dosing Weight 81.818 kg, Start date: 10/30/16 21:59:00 WATERPROOFING MIXER, Duration: 1 doses or times, Stop date: 10/30/16 21:59:00 WATERPROOFING MIXER Saline Flush 0.9%
10 mL, No Longer Route: IVP, Active 2015 [facility] Drug Form: City INJ, Dosing Weight 81.818, kg, PRN, PRN Line Flush, Start date: 10/30/16 21:59:00 WATERPROOFING MIXER, Duration: 30 day, Stop date: 11/29/16 21:58:00 WATERPROOFING MIXER
Notes: (Same as: BD Posiflush) Sulfamethoxazole
1 tab, Active 800 MG / PO, BID, X 14 2015 [facility] Trimethoprim 160 day, # 28 tab, MG Oral Tablet 0 Refill(s) [Bactrim] Acetaminophen 300
1 - 2 No Longer MG / Codeine tab, PO, Q4H, Active 2015 [facility] Phosphate 30 MG PRN Pain, X 2 Oral Tablet day, # 20 tab, [Tylenol with 0 Refill(s) Codeine #3] ibuprofen 800 mg
800 mg=1 Active oral tablet tab, PO, Q8H, 2015 [facility] PRN Pain, Take with food, # 30 tab, 0 Refill(s) Ketorolac
30 mg, Inactive Route: IV, 2015 [facility] Drug form: INJ, ONCE, Dosing Weight 81.818, kg, Priority: STAT, Start date: 10/21/16 0:45:00 WATERPROOFING MIXER, Stop date: 10/21/16 0:45:00 WATERPROOFING MIXER Morphine
4 mg, Inactive Route: IV2015 [facility] ONCE, Dosing Weight 81.818, kg, Priority: STAT, Start date: 10/20/16 23:12:00 WATERPROOFING MIXER, Stop date: 10/20/16 23:12:00 WATERPROOFING MIXER Zofran
4 mg, Inactive Route: IVP, 2015 [facility] Drug form: INJ, ONCE, Dosing Weight 81.818, kg, Priority: STAT, Start date: 10/20/16 23:12:00 WATERPROOFING MIXER, Stop date: 10/20/16 23:12:00 WATERPROOFING MIXER Morphine
4 mg, 1 Inactive mL, Route: 2015 [facility] IVP, Drug form: SOLN, ONCE, Dosing Weight 81.818, kg, Priority: STAT, Start date: 10/20/16 21:46:00 WATERPROOFING MIXER, Stop date: 10/20/16 21:46:00 WATERPROOFING MIXER
Notes: (Same as:MORPhine Sulfate) Zofran
4 mg, 2 Inactive mL, Route: 2015 [facility] IVP, Drug form: INJ, ONCE, Dosing Weight 81.818, kg, Priority: STAT, Start date: 10/20/16 21:46:00 WATERPROOFING MIXER, Stop date: 10/20/16 21:46:00 WATERPROOFING MIXER
Notes: (Same as: Zofran) MEDICATION WASTE Product Size: 4 mg Product Wasted: ___ mg Sodium Chloride
1,000 mL, Inactive 0.154 MEQ/ML 1,000 ml/hr, 2015 Injectable Infuse Over: 1 Solution hr, Route: IV, 1,000, Drug form: INJ, ONCE, Priority: STAT, Dosing Weight 81.818 kg, Start date: 10/20/16 21:46:00 WATERPROOFING MIXER, Duration: 1 doses or times, Stop date: 10/20/16 21:46:00 WATERPROOFING MIXER Saline Flush 0.9%
10 mL, No Longer Route: IVP, Active 2015 [facility] Drug Form: INJ, Dosing Weight 81.818, kg, PRN, PRN Line Flush, Start date: 10/20/16 21:15:00 WATERPROOFING MIXER, Duration: 30 day, Stop date: 11/19/16 21:14:00 WATERPROOFING MIXER
Notes: (Same as: BD Posiflush) 24 HR tramadol
200 mg=1 Active hydrochloride 200 tab, PO, 2015 [facility] Extended Daily, # 10 Release Tablet tab, 0 Refill(s) Ondansetron 4 MG
4 mg=1 Active Oral Tablet tab, PO, BID, 2015 [Zofran] PRN Nausea, X 5 day, # 10 tab, 0 Refill(s) Famotidine 20 MG
20 mg=1 Active Oral Tablet tab, PO, BID, 2015 [Pepcid] # 14 tab, 0 Refill(s) Morphine
4 mg, Inactive Route: IVP, 2015 ONCE, Dosing Weight 81.818, kg, Priority: STAT, Start date: 10/17/16 15:49:00 WATERPROOFING MIXER, Stop date: 10/17/16 15:49:00 WATERPROOFING MIXER Ketorolac
30 mg, Inactive Route: IVP2015 [facility] Drug form: INJ, ONCE, Dosing Weight 81.818, kg, Priority: STAT, Start date: 10/17/16 15:49:00 WATERPROOFING MIXER, Stop date: 10/17/16 15:49:00 WATERPROOFING MIXER Ondansetron
4 mg, Inactive Route: IVP2015 [facility] Drug form: INJ, ONCE, Dosing Weight 81.818, kg, Priority: STAT, Start date: 10/17/16 15:49:00 WATERPROOFING MIXER, Stop date: 10/17/16 15:49:00 WATERPROOFING MIXER sodium chloride
1,000 mL, Inactive 0.9% 1000 ml INJ Rate: 1,000 2015 [facility] 1,000 mL ml/hr, Infuse over: 1 hr, Route: IV, Dosing Weight 81.818 kg, Total Volume: 1,000, Start date: 10/17/16 14:15:00 WATERPROOFING MIXER, Duration: 1 hr, Stop date: 10/17/16 15:14:00 WATERPROOFING MIXER Zofran
4 mg, Inactive Route: IVP2015 [facility] Drug form: INJ, ONCE, Dosing Weight 81.818, kg, Priority: STAT, Start date: 10/17/16 14:14:00 WATERPROOFING MIXER, Stop date: 10/17/16 14:14:00 WATERPROOFING MIXER Morphine
4 mg, Inactive Route: IV2015 [facility] ONCE, Dosing Weight 81.818, kg, Priority: STAT, Start date: 10/17/16 14:13:00 WATERPROOFING MIXER, Stop date: 10/17/16 14:13:00 WATERPROOFING MIXER Saline Flush 0.9%
10 mL, Inactive Route: IVP2015 [facility] Drug Form: INJ, Dosing Weight 81.818, kg, PRN, PRN Line Flush, Start date: 10/17/16 13:56:00 [employer], Duration: 30 day, Stop date: 11/16/16 13:55:00 [employer]
Notes: (Same as: BD Posiflush) Sulfamethoxazole
1 tab, Active 800 MG / PO, BID, X 10 2015 [facility] Trimethoprim 160 day, # 20 tab, MG Oral Tablet 0 Refill(s), [Bactrim] Pharmacy: [facility] [address] Acetaminophen 300
1 tab, Active MG / Codeine PO, Q6H, PRN 2015 [facility] Phosphate 30 MG Pain, X 5 day, Oral Tablet # 20 tab, 0 [Tylenol with Refill(s) Codeine #3] ketOROLAC 30 mg/mL
30 mg, Inactive injectable Route: IVP, 2015 [facility] solution Drug form: INJ, ONCE, Dosing Weight 77.273, kg, Priority: STAT, Start date: 06/13/16 18:49:00 CDT, Stop date: 06/13/16 18:49:00 CDT Sodium Chloride
1,000 mL, Inactive 0.154 MEQ/ML 1,000 ml/hr, 2015 [facility] Injectable Infuse Over: 1 Solution Hour, Route: IV, ONCE, Priority: STAT, Dosing Weight 77.273 kg, Start date: 06/13/16 18:04:00 CDT, Duration: 1 doses or times, Stop date: 06/13/16 18:04:00 CDT Acetaminophen 325
1 tab, Inactive MG / Hydrocodone Route: PO, 2015 [facility] Bitartrate 5 MG Drug Form: Oral Tablet [Gould TAB, Dosing 5/325] Weight 77.273, kg, ONCE, STAT, Start date: 06/13/16 17:27:00 CDT, Stop date: 06/13/16 17:27:00 CDT Clindamycin
900 mg, Inactive Route: IVPB, 2015 [facility] ONCE, Dosing Weight 77.273, kg, Priority: STAT, Start date: 06/13/16 17:27:00 CDT, Stop date: 06/13/16 17:27:00 CDT Acetaminophen 325
2 tab, Inactive MG / Hydrocodone Route: PO, 2015 [facility] Bitartrate 10 MG Drug Form: Oral Tablet [Gould TAB, Dosing 10/325] Weight 75.909, kg, ONCE, STAT, Start date: 05/24/16 0:25:00 CDT, Stop date: 05/24/16 0:25:00 CDT Acetaminophen 325
2 tab, Inactive MG / Hydrocodone Route: PO, 2015 [facility] Bitartrate 10 MG Drug Form: Oral Tablet [Gould TAB, Dosing 10] Weight 75.909, kg, ONCE, STAT, Start date: 05/24/16 0:24:00 CDT, Stop date: 05/24/16 0:24:00 CDT Dilaudid
1 mg, Inactive Route: IVP, 2015 [facility] ONCE, Dosing Weight 75.909, kg, Priority: STAT, Start date: 05/23/16 22:30:00 CDT, Stop date: 05/23/16 22:30:00 CDT Morphine
4 mg, 2 Inactive mL, Route: 2015 [facility] IVP, Drug form: INJ, ONCE, Dosing Weight 75.909, kg, Priority: STAT, Start date: 05/23/16 19:29:00 CDT, Stop date: 05/23/16 19:29:00 CDT
Notes: (Same as:MORPhine Sulfate) Ondansetron
4 mg, 2 Inactive mL, Route: 2015 [facility] IVP, Drug form: INJ, ONCE, Dosing Weight 75.909, kg, Priority: STAT, Start date: 05/23/16 19:29:00 CDT, Stop date: 05/23/16 19:29:00 CDT
Notes: (Same as: Gosia) MEDICATION WASTE Product Size: 4 mg Product Wasted: ___ mg Saline Flush 0.9%
10 mL, No Longer Route: IVP, Active 2015 [facility] Drug Form: INJ, Dosing Weight 75.909, kg, PRN, PRN Line Flush, Start date: 05/23/16 19:29:00 CDT, Duration: 30 day, Stop date: 06/22/16 19:28:00 CDT
Notes: (Same as: BD Posiflush) Sodium Chloride
1,000 mL, Inactive 0.154 MEQ/ML 1,000 ml/hr, 2015 [facility] Injectable Infuse Over: 1 Solution hr, Route: IV, 1,000, Drug form: INJ, ONCE, Priority: STAT, Dosing Weight 75.909 kg, Start date: 05/23/16 19:28:00 CDT, Duration: 1 doses or times, Stop date: 05/23/16 19:28:00 CDT Acetaminophen 325
1 tab, Active MG / Oxycodone PO, Q6H, PRN 2015 [facility] Hydrochloride 10 Pain Score MG Oral Tablet 7-10, # 20 [Percocet 10/325] tab, 0 Refill(s), given to patient Tylenol
Route: No Longer IV, Drug form: Active 2015 [facility] INJ, Q6H, Dosing Weight 80.114, kg, Start date: 04/29/16 12:00:00 CDT, Duration: 30 day, Stop date: 05/29/16 6:00:00 CDT
Notes: Infuse over 15 minutes Use within 6 hours of opening vial or transferring to another container. Discard any unused portion. MEDICATION WASTE Product Size: 1000 mg Product Wasted: _500__ mg Vitamin K1
10 mg, 1 Inactive mL, Route: 2015 [facility] SUB-Q, Drug form: INJ, ONCE, Dosing Weight 80.114, kg, Start date: 04/29/16 9:02:00 CDT, Duration: 1 doses or times, Stop date: 04/29/16 9:02:00 CDT
Notes: (Same as: Aqua-Mephyton, Vitamin K) MEDICATION WASTE Product Size: 10 mg Product Wasted: ___ mg Nifedipine
1 mg, PO, Active TID, # 30 gm, 2015 [facility] 1 Refill(s) Acetaminophen 325
1 tab, No Longer MG / Hydrocodone Route: PO, Active 2015 [facility] Bitartrate 10 MG Drug Form: Oral Tablet [Gould TAB, Dosing 10/325] Weight 72.727, kg, Q6H, PRN Pain Score 4-6, Start date: 04/27/16 12:07:00 CDT, Duration: 30 day, Stop date: 05/27/16 12:06:00 CDT
Notes: Do not exceed 4gm/day of acetaminophen. (Same as: Gould 325/10) Atropine
0.5 mg, 5 No Longer mL, Route: IV, Active 2015 [facility] Drug form: INJ, PRN, Dosing Weight 72.727, kg, PRN Bradycardia, Start date: 04/27/16 6:59:00 CDT, Duration: 30 day, Stop date: 05/27/16 6:58:00 CDT Nitroglycerin
0.4 mg, 1 No Longer tab, Route: Active 2015 [facility], Drug form: TAB, Q5Min, Dosing Weight 72.727, kg, PRN as needed for chest pain, Start date: 04/27/16 6:58:00 CDT, Duration: 3 doses or times, Stop date: Limited # of times
Note s: (Same as:Nitroquick, Nitrostat) "Do Not Crush" Sublingual tablet 200 ML
400 mg, No Longer Ciprofloxacin 2 200 mL, Route: Active 2015 [facility] MG/ML Injection IVPB, Drug form: INJ, [id number], Dosing Weight 72.727, kg, Start date: 04/26/16 23:00:00 CDT, Duration: 30 day, Stop date: 05/26/16 11:00:00 CDT
Notes: Do not refrigerate Lidocaine 40 MG/ML
1 appl, No Longer Topical Cream Route: TOP, Active 2015 [facility] Q4H, Drug form: GEL, PRN Pain Score 1-3, Start date: 04/26/16 12:10:00 CDT, Stop date: 05/26/16 12:09:00 CDT
Notes: (Same as: Xylocaine Jelly, Anestacon) Sodium Chloride
1,000 mL, Inactive 0.154 MEQ/ML Rate: 25 2015 Injectable ml/hr, Infuse Solution over: 40 hr, Route: IV, Dosing Weight 72.727 kg, Total Volume: 1,000, Start date: 04/26/16 9:21:00 CDT, Duration: 1 day, Stop date: 04/27/16 9:20:00 CDT Golytely
4,000 ml, Inactive Route: PO, 2015 [facility] Drug Form: PDR/REC, Dosing Weight 72.727, kg, ONCE, Start date: 04/25/16 18:27:00 CDT, Duration: 1 doses or times, Stop date: 04/25/16 18:27:00 CDT
Notes: (polyethylene glycol electrolyte solution 4 Liter bottle) (Same as: Golytely, Colyte) Dulcolax Laxative
40 mg, 8 Inactive tab, Route: 2015 [facility] PO, Drug form: ECTAB, ONCE, Dosing Weight 72.727, kg, Start date: 04/25/16 18:27:00 CDT, Stop date: 04/25/16 18:27:00 CDT
Notes: (Same As: Dulcolax, Correctol) (Do Not Crush) "Do Not Crush" Acetaminophen 325
1 tab, No Longer MG / Oxycodone Route: PO, Active 2015 [facility] Hydrochloride 10 Drug Form: MG Oral Tablet TAB, Dosing [Percocet 10/325] Weight 72.727, kg, Q4H, PRN Pain Score 6-10, Start date: 04/25/16 10:40:00 CDT, Stop date: 05/25/16 10:39:00 CDT
Notes: Do not exceed 4gm/day of acetaminophen. (Same as: Percocet-5/325 ) Dilaudid
0.5 mg, No Longer 0.5 mL, Route: Active 2015 [facility] IV, Drug form: INJ, Q4H, Dosing Weight 72.727, kg, PRN Pain Score 7-10, Start date: 04/24/16 14:00:00 CDT, Stop date: 05/24/16 13:59:00 CDT Dilaudid
0.5 mg, Inactive 0.5 mL, Route: 2015 [facility] IV, Drug form: INJ, Q4H, Dosing Weight 72.727, kg, PRN Pain Score 7-10, Start date: 04/24/16 10:20:00 CDT, Duration: 30 day, Stop date: 05/24/16 10:19:00 CDT MSIR
15 mg, 1 No Longer tab, Route: Active 2015 [facility] PO, Drug form: TAB, Q4H, Dosing Weight 72.727, kg, PRN Pain Score 7-10, Start date: 04/23/16 10:58:00 CDT, Duration: 30 day, Stop date: 05/23/16 10:57:00 CDT
Notes: (Same as:MORPhine Sulfate) Dilaudid
1 mg, 1 No Longer mL, Route: IV, Active 2015 [facility] Drug form: INJ, Q4H, Dosing Weight 72.727, kg, PRN Pain Score 7-10, Start date: 04/23/16 10:58:00 CDT, Duration: 30 day, Stop date: 05/23/16 10:57:00 CDT Lovenox
40 mg, No Longer 0.4 mL, Route: Active 2015 [facility] SUB-Q, Drug form: INJ, [id number], Dosing Weight 72.727, kg, Start date: 04/23/16 10:00:00 CDT, Duration: 30 day, Stop date: 05/22/16 10:00:00 CDT
Notes: (Same as: Lovenox) Famotidine
20 mg, 1 No Longer tab, Route: Active 2015 [facility] PO, Drug form: TAB, Q12H, Dosing Weight 72.727, kg, Start date: 04/22/16 21:00:00 CDT, Duration: 30 day, Stop date: 05/22/16 9:00:00 CDT
Notes: (Same as: Pepcid) Dilaudid
0.5 mg, Inactive Route: IVP, 2015 [facility] ONCE, Dosing Weight 72.727, kg, Priority: STAT, Start date: 04/22/16 11:41:00 CDT, Stop date: 04/22/16 11:41:00 CDT Dilaudid
0.5 mg, Inactive Route: IVP, 2015 [facility] ONCE, Dosing Weight 72.727, kg, Priority: STAT, Start date: 04/22/16 11:30:00 CDT, Stop date: 04/22/16 11:30:00 CDT Fentanyl
50 Inactive microgram, 2015 [facility] Route: IVP, ONCE, Dosing Weight 72.727, kg, Start date: 04/22/16 11:20:00 CDT, Stop date: 04/22/16 11:20:00 CDT NS + KCL 20mEq/L
1,000 mL, No Longer 1000ml (Premix) Rate: 40 Active 2015 [facility] 1,000 mL ml/hr, Infuse over: 25 hr, Route: IV, Dosing Weight 72.727 kg, Total Volume: 1,000, Start date: 04/22/16 11:04:00 CDT, Stop date: 05/22/16 11:03:00 CDT
Notes: PREMIX IV - Do Not Alter WASTE: F/P - Sink; E - [employer] Ondansetron
4 mg, 2 No Longer mL, Route: Active 2015 [facility] IVP, Drug form: INJ, Q6H, Dosing Weight 72.727, kg, PRN Nausea & Vomiting, Start date: 04/22/16 11:04:00 CDT, Duration: 30 day, Stop date: 05/22/16 11:03:00 CDT
Not es: (Same as: Zofran) MEDICATION WASTE Product Size: 4 mg Product Wasted: ___ mg Promethazine
12.5 mg, No Longer 0.5 mL, Route: Active 2015 [facility] IVPB, Q4H, Dosing Weight 72.727, kg, PRN Nausea & Vomiting, Start date: 04/22/16 11:04:00 CDT, Duration: 30 day, Stop date: 05/22/16 11:03:00 CDT
Notes: Do not give IV push. (Same as: Phenergan) Acetaminophen 325
1 tab, No Longer MG / Hydrocodone Route: PO, Active 2015 [facility] Bitartrate 10 MG Drug Form: Oral Tablet TAB, Dosing Weight 72.727, kg, Q4H, PRN Pain Score 4-6, Start date: 04/22/16 11:04:00 CDT, Duration: 30 day, Stop date: 05/22/16 11:03:00 CDT
Notes: Do not exceed 4gm/day of acetaminophen. (Same as: Gould 325/10) Hydromorphone
1 mg, 1 No Longer mL, Route: Active 2015 [facility] IVP, Drug form: INJ, Q2H, Dosing Weight 72.727, kg, PRN Pain Score 4-6, Start date: 04/22/16 11:04:00 CDT, Duration: 30 day, Stop date: 05/22/16 11:03:00 CDT ondansetron (ANES)
Route: Inactive IV, Drug form: 2015 [facility] INJ, ONCE, Stop date: 04/22/16 10:50:00 CDT fentaNYL (ANES)
Route: Inactive IV, Drug form: 2015 [facility] INJ, ONCE, Stop date: 04/22/16 10:50:00 CDT propofol (ANES)
Route: Inactive IV, Drug form: 2015 [facility] INJ, ONCE, Stop date: 04/22/16 10:50:00 CDT ketOROLAC (ANES)
IV, ONCE Inactive 2015 [facility] lidocaine (ANES)
Route: Inactive IV, Drug form: 2015 [facility] INJ, ONCE, Stop date: 04/22/16 10:50:00 CDT midazolam (ANES)
Route: Inactive IV, Drug form: 2015 [facility] SOLN, ONCE, Stop date: 04/22/16 10:50:00 CDT acetaminophen
Route: Inactive (ANES) (ANES) IV, Drug form: 2015 INJ, Start date: 04/22/16 10:12:00 CDT, Stop date: 04/22/16 11:12:00 CDT LR 500 ml INJ
Route: Inactive (ANES) IV, Total 2015 [facility] Volume: 500, Start date: 04/22/16 10:07:00 CDT, Stop date: 04/22/16 11:07:00 CDT Exparel
20 mL, No Longer Route: Active 2015 [facility] InFILtration(l ocal), Drug Form: INJ, Dosing Weight 72.727, kg, ONCALL, For Hemorrhoidecto my, Start date: 04/22/16 10:00:00 CDT, Duration: 1 doses or times
Note s: (Same as: Exparel) NOT FOR IV use Postoperative analgesia: Infiltration (local): Dose is based on surgical site and volume required to cover the area (in general, the maximum total dose is 266 mg). Bunionectomy: 7 mL into the tissues surrounding the osteotomy and 1 mL into the subcutaneous tissue of the surgical site (total dose=8 mL [106 mg]) Hemorrhoidecto my: 30 mL (20 mL vial diluted with 10 mL NS) divided and administered as 6 injections of 5 mL each (total dose=30 mL [266 mg]) Lactated Ringers
500 mL, Inactive 500 mL Rate: 25 2015 ml/hr, Infuse over: 20 hr, Route: IV, Dosing Weight 72.727 kg, Total Volume: 500, Start date: 04/22/16 9:53:00 CDT, Duration: 30 day, Stop date: 05/22/16 9:52:00 CDT Dilaudid
1 mg, 1 No Longer mL, Route: IV, Active 2015 [facility] Drug form: INJ, Q2H, Dosing Weight 72.727, kg, PRN Pain Score 6-10, Start date: 04/22/16 8:22:00 CDT, Duration: 30 day, Stop date: 05/22/16 8:21:00 CDT Dilaudid
0.5 mg, Inactive 0.5 mL, Route: 2015 [facility] IV, Drug form: INJ, Q3H, Dosing Weight 72.727, kg, PRN Pain Score 7-10, Start date: 04/22/16 1:34:00 CDT, Duration: 30 day, Stop date: 05/22/16 1:33:00 CDT Sodium Chloride
1,000 mL, No Longer 0.154 MEQ/ML Rate: 125 Active 2015 [facility] Injectable ml/hr, Infuse Solution over: 8 hr, Route: IV, Dosing Weight 81.818 kg, Total Volume: 1,000, Start date: 04/21/16 23:36:00 CDT, Duration: 30 day, Stop date: 05/21/16 23:35:00 CDT Saline Flush 0.9%
10 ml, No Longer Route: IVP, Active 2015 [facility] Drug Form: INJ, Dosing Weight 81.818, kg, PRN, PRN Line Flush, Start date: 04/21/16 23:36:00 CDT, Duration: 30 day, Stop date: 05/21/16 23:35:00 CDT
Notes: (Same as: BD Posiflush) Ondansetron
4 mg, 2 No Longer mL, Route: Active 2015 [facility] IVP, Drug form: INJ, Q6H, Dosing Weight 81.818, kg, PRN Nausea & Vomiting, Start date: 04/21/16 23:36:00 CDT, Duration: 30 day, Stop date: 05/21/16 23:35:00 CDT
Not es: (Same as: Zofran) MEDICATION WASTE Product Size: 4 mg Product Wasted: ___ mg Acetaminophen
325 mg, 1 No Longer tab, Route: Active 2015 [facility] PO, Drug form: TAB, Q4H, Dosing Weight 81.818, kg, PRN Pain Score 4-6, Start date: 04/21/16 23:36:00 CDT, Duration: 30 day, Stop date: 05/21/16 23:35:00 CDT
Notes: Do not exceed 4 gm/day. (Same as: Tylenol) Morphine
4 mg, 2 No Longer mL, Route: Active 2015 [facility] IVP, Drug form: INJ, Q4H, Dosing Weight 81.818, kg, PRN Pain Score 7-10, Start date: 04/21/16 23:36:00 CDT, Duration: 30 day, Stop date: 05/21/16 23:35:00 CDT
Notes: (Same as:MORPhine Sulfate) Docusate
100 mg, 1 No Longer cap, Route: Active 2015 [facility] PO, Drug form: CAP, BID, Dosing Weight 81.818, kg, PRN Constipation, Start date: 04/21/16 23:36:00 CDT, Duration: 30 day, Stop date: 05/21/16 23:35:00 CDT
Notes: (Same as: Colace) (Do Not Crush) Dilaudid
0.5 mg, Inactive 0.5 mL, Route: 2015 [facility] IVP, Drug form: INJ, ONCE, Dosing Weight 81.818, kg, Priority: STAT, Start date: 04/21/16 22:51:00 CDT, Stop date: 04/21/16 22:51:00 CDT Lidocaine 50 MG/ML
1 appl, No Longer Rectal Cream TOP, 5X Day, Active 2015 [facility] [Recticare] PRN Hemorrhoids, 0 Refill(s) docusate sodium
100 mg=1 Active 100 mg oral cap, PO, 2015 capsule Daily, 0 Refill(s) Dilaudid
1 mg, Inactive Route: IVP, 2015 ONCE, Dosing Weight 81.818, kg, Priority: STAT, Start date: 04/21/16 22:27:00 CDT, Stop date: 04/21/16 22:27:00 CDT Dilaudid
0.5 mg, Inactive 0.5 mL, Route: 2015 [facility] IVP, Drug form: INJ, ONCE, Dosing Weight 81.818, kg, Priority: STAT, Start date: 04/21/16 21:04:00 CDT, Stop date: 04/21/16 21:04:00 CDT Saline Flush 0.9%
10 mL, No Longer Route: IVP, Active 2015 [facility] Drug Form: INJ, Dosing Weight 75, kg, PRN, PRN Line Flush, Start date: 04/21/16 20:16:00 CDT, Duration: 30 day, Stop date: 05/21/16 20:15:00 CDT
Notes: (Same as: BD Posiflush) clindamycin 300 mg
300 mg=1 Active oral capsule cap, PO, Q6H, 2015 [facility] X 10 day, # 40 cap, 0 Refill(s), Pharmacy: [facility] [id number] Morphine
4 mg, Inactive Route: IVP, 2015 [facility] Drug form: INJ, ONCE, Dosing Weight 81.818, kg, Priority: STAT, Start date: 03/31/16 17:41:00 CDT, Stop date: 03/31/16 17:41:00 CDT Clindamycin
900 mg, Inactive Route: IVPB, 2015 [facility] ONCE, Dosing Weight 81.818, kg, Priority: STAT, Start date: 03/31/16 17:41:00 CDT, Stop date: 03/31/16 17:41:00 CDT Morphine
4 mg, Inactive Route: IVP, 2015 [facility] Drug form: INJ, ONCE, Dosing Weight 81.818, kg, Priority: STAT, Start date: 03/31/16 16:11:00 CDT, Stop date: 03/31/16 16:11:00 CDT Zofran
4 mg, Inactive Route: IVP, 2015 [facility] Drug form: INJ, ONCE, Dosing Weight 81.818, kg, Priority: STAT, Start date: 03/31/16 16:10:00 CDT, Stop date: 03/31/16 16:10:00 CDT Sodium Chloride
1,000 mL, Inactive 0.154 MEQ/ML 1,000 ml/hr, 2015 [facility] Injectable Infuse Over: 1 Solution hr, Route: IV, 1,000, Drug form: INJ, ONCE, Priority: STAT, Dosing Weight 81.818 kg, Start date: 03/31/16 16:07:00 CDT, Duration: 1 doses or times, Stop date: 03/31/16 16:07:00 CDT Hydromorphone
0.5 mg, Inactive Route: IVP, 2015 [facility] Q5Min, Dosing Weight 78.835, kg, PRN Pain Score 7-10, Start date: 03/27/16 17:26:00 CDT, Duration: 4 doses or times, Stop date: Limited # of times Meperidine
12.5 mg, Inactive Route: IVP, 2015 [facility] Q30Min, Dosing Weight 78.835, kg, PRN Other -See Comment, For shivering, Start date: 03/27/16 17:26:00 CDT, Duration: 2 doses or times, Stop date: Limited # of times Albuterol 0.83
2.49 mg, Inactive MG/ML Inhalant Route: NEB, 2015 [facility] Solution Q20Min, Dosing Weight 78.835, kg, PRN Wheezing, Priority: STAT, Start date: 03/27/16 17:26:00 CDT, Duration: 30 day, Stop date: 04/26/16 17:25:00 CDT Diphenhydramine
12.5 mg, Inactive Route: IVP, 2015 [facility] Drug form: INJ, Q6H, Dosing Weight 78.835, kg, PRN Itching, Start date: 03/27/16 17:26:00 CDT, Duration: 30 day, Stop date: 04/26/16 17:25:00 CDT Oxycodone
10 mg, Inactive Route: PO, 2015 [facility] Drug form: TAB, Q4H, Dosing Weight 78.835, kg, PRN Pain Score 7-10, Start date: 03/27/16 17:26:00 CDT, Duration: 30 day, Stop date: 04/26/16 17:25:00 CDT Fentanyl
25 Inactive microgram, 2015 [facility] Route: IVP, Q5Min, Dosing Weight 78.835, kg, PRN Pain Score 4-6, Start date: 03/27/16 17:26:00 CDT, Duration: 4 doses or times, Stop date: Limited # of times Promethazine
6.25 mg, Inactive Route: IVPB, 2015 [facility] ONCE, Dosing Weight 78.835, kg, PRN Nausea & Vomiting, Start date: 03/27/16 17:26:00 CDT Flumazenil
0.2 mg, Inactive Route: IVP, 2015 [facility] PRN, Dosing Weight 78.835, kg, PRN Benzodiazepine Reversal, Initial dose, Start date: 03/27/16 17:26:00 CDT, Duration: 30 day, Stop date: 04/26/16 17:25:00 CDT Naloxone
0.04 mg, Inactive Route: IVP, 2015 [facility] Q2MIN, Dosing Weight 78.835, kg, PRN Narcotic Reversal, Start date: 03/27/16 17:26:00 CDT, Duration: 8 doses or times, Stop date: Limited # of times Ondansetron
4 mg, Inactive Route: IVP, 2015 [facility] ONCE, Dosing Weight 78.835, kg, PRN Nausea & Vomiting, Start date: 03/27/16 17:26:00 CDT Glucose 50 MG/ML /
1,000 mL, Inactive Sodium Chloride Rate: 125 2015 [facility] 0.154 MEQ/ML ml/hr, Infuse Injectable over: 8 hr, Solution Route: IV, Dosing Weight 78.835 kg, Total Volume: 1,000, Start date: 03/27/16 17:26:00 CDT, Duration: 30 day, Stop date: 04/26/16 17:25:00 CDT Sodium Chloride
500 mL, Inactive 0.154 MEQ/ML Infuse Over: 2015 [facility] Injectable 20 minutes, Solution Route: IV, ONCE, Dosing Weight 78.835 kg, Start date: 03/27/16 17:26:00 CDT, Stop date: 03/27/16 17:26:00 CDT ketOROLAC (ANES)
IM, ONCE Inactive 2015 [facility] Acetaminophen 325
1 tab, No Longer MG / Hydrocodone Route: PO, Active 2015 [facility] Bitartrate 5 MG Drug Form: Oral Tablet TAB, Dosing Weight 78.835, kg, Q4H, PRN Pain Score 4-6, Start date: 03/27/16 17:15:00 CDT, Duration: 30 day, Stop date: 04/26/16 17:14:00 CDT
Notes: (Same as: Gould 325/5) Do not exceed 4gm/day of acetaminophen. hydromorphone
Route: Inactive (ANES) IV, Drug form: 2015 [facility] INJ, ONCE, Stop date: 03/27/16 17:12:00 CDT ondansetron (ANES)
Route: Inactive IV, Drug form: 2015 [facility] INJ, ONCE, Stop date: 03/27/16 17:02:00 CDT lidocaine (ANES)
Route: Inactive IV, Drug form: 2015 [facility] INJ, ONCE, Stop date: 03/27/16 17:02:00 CDT fentaNYL (ANES)
Route: Inactive IV, Drug form: 2015 [facility] INJ, ONCE, Stop date: 03/27/16 17:02:00 CDT midazolam (ANES)
Route: Inactive IV, Drug form: 2015 [facility] SOLN, ONCE, Stop date: 03/27/16 17:02:00 CDT propofol (ANES)
Route: Inactive IV, Drug form: 2015 [facility] INJ, ONCE, Stop date: 03/27/16 17:02:00 CDT acetaminophen
Route: Inactive (ANES) (ANES) IV, Drug form: 2015 [facility] INJ, Start date: 03/27/16 16:26:00 CDT, Stop date: 03/27/16 17:26:00 CDT Lactated Ringers
Route: Inactive Injection IV IV, Total 2015 [facility] (ANES) (ANES) Volume: 500, Start date: 03/27/16 16:10:00 CDT, Stop date: 03/27/16 17:10:00 CDT Ketorolac
10 mg=1 Active Tromethamine 10 MG tab, PO, Q6H, 2015 [facility] Oral Tablet PRN Pain, # 20 tab, 0 Refill(s), Pharmacy: [facility] [id number] Acetaminophen 300
1 tab, Active MG / Codeine PO, Q6H, PRN 2015 [facility] Phosphate 30 MG for pain, # 30 Oral Tablet tab, 0 [Tylenol with Refill(s) Codeine #3] Sodium Chloride
500 mL, Inactive 0.154 MEQ/ML Rate: 125 2015 [facility] Injectable ml/hr, Infuse Solution over: 4 hr, Route: IV, Dosing Weight 78.835 kg, Total Volume: 500, Start date: 03/27/16 13:58:00 CDT, Duration: 30 day, Stop date: 04/26/16 13:57:00 CDT Glucose 50 MG/ML /
1,000 mL, Inactive Sodium Chloride Rate: 25 2015 [facility] 0.154 MEQ/ML ml/hr, Infuse Injectable over: 40 hr, Solution Route: IV, Dosing Weight 78.835 kg, Total Volume: 1,000, Start date: 03/27/16 13:58:00 CDT, Duration: 30 day, Stop date: 04/26/16 13:57:00 CDT Calcium Chloride
500 mL, Inactive 0.0014 MEQ/ML / Rate: 25 2015 [facility] Potassium Chloride ml/hr, Infuse 0.004 MEQ/ML / over: 20 hr, Sodium Chloride Route: IV, 0.103 MEQ/ML / Dosing Weight Sodium Lactate 78.835 kg, 0.028 MEQ/ML Total Volume: Injectable 500, Start Solution date: 03/27/16 13:58:00 CDT, Duration: 30 day, Stop date: 04/26/16 13:57:00 CDT Normosol-R
1,000 mL, Inactive Rate: 25 2015 [facility] ml/hr, Infuse over: 40 hr, Route: IV, Dosing Weight 78.835 kg, Total Volume: 1,000, Start date: 03/27/16 13:58:00 CDT, Duration: 30 day, Stop date: 04/26/16 13:57:00 CDT Exparel
20 mL, No Longer Route: Active 2015 [facility] InFILtration(l ocal), Drug Form: INJ, Dosing Weight 78.835, kg, ONCALL, For Hemorrhoidecto my, Start date: 03/27/16 7:00:00 CDT, Duration: 30 day, Stop date: 04/26/16 6:59:00 CDT
Not es: (Same as: Exparel) NOT FOR IV use Postoperative analgesia: Infiltration (local): Dose is based on surgical site and volume required to cover the area (in general, the maximum total dose is 266 mg). Bunionectomy: 7 mL into the tissues surrounding the osteotomy and 1 mL into the subcutaneous tissue of the surgical site (total dose=8 mL [106 mg]) Hemorrhoidecto my: 30 mL (20 mL vial diluted with 10 mL NS) divided and administered as 6 injections of 5 mL each (total dose=30 mL [266 mg]) ONAbotulinumtoxinA
100 unit, No Longer Route: IM, Active 2015 [facility] Drug form: INJ, ONCALL, Start date: 03/26/16 17:00:00 CDT, Duration: 2 day, Stop date: 03/28/16 16:59:00 CDT
Notes: "TO BE RECONSTITUTED AND ADMINISTERED ONLY BY A PHYSICIAN" Reconstitute with preservative free NS only. Stability=4 hours after reconstitution . (Same As: Botox) WASTE: F/P - Red; E -Red Garcinia Cambogia
Garcinia Active Cambogia, 2015 [facility] Refill(s) 0 Zofran ODT
4 mg, Inactive Route: PO, 2015 [facility] Drug form: TABDIS, ONCE, Dosing Weight 81.818, kg, Priority: STAT, Start date: 12/30/15 18:20:00, Stop date: 12/30/15 18:20:00 Morphine
4 mg, Inactive Route: IM, 2015 [facility] ONCE, Dosing Weight 81.818, kg, Start date: 12/30/15 18:20:00, Stop date: 12/30/15 18:20:00 Acetaminophen 325
1 tab, Inactive MG / Hydrocodone Route: PO, 2015 [facility] Bitartrate 10 MG Dosing Weight Oral Tablet [Gould 81.818, kg, 10/325] ONCE, Start date: 12/30/15 18:19:00, Stop date: 12/30/15 18:19:00 Cyclobenzaprine
10 mg, Active hydrochloride 10 PO, TID, PRN 2015 [facility] MG Oral Tablet Muscle Spasm, [Flexeril] X 10 day, # 30 tab, 0 Refill(s) Naproxen 500 MG
500 mg=1 Active Oral Tablet tab, PO, BID, 2015 [Naprosyn] PRN Pain, # 28 tab, 0 Refill(s) Kenalog-40
40 mg, 1 Inactive mL, Route: 2015 [facility] intra-ARTICULA R, Drug form: INJ, ONCE, Dosing Weight 81.818, kg, Start date: 12/30/15 17:57:00, Stop date: 12/30/15 17:57:00
N otes: (Same As: Kenalog-40) MEDICATION WASTE Product Size: 40 mg Product Wasted: ___ mg tramadol
100 mg, 2 Inactive hydrochloride 50 tab, Route: 2015 [facility] MG Oral Tablet PO, Drug form: [Ultram] TAB, ONCE, Dosing Weight 81.818, kg, Priority: STAT, Start date: 12/30/15 16:33:00, Stop date: 12/30/15 16:33:00
N otes: Not to exceed 400mg/day. (Same As: Ultram) Flexeril
10 mg, 1 Inactive tab, Route: 2015 [facility] PO, Drug form: TAB, ONCE, Dosing Weight 81.818, kg, Priority: STAT, Start date: 12/30/15 16:33:00, Stop date: 12/30/15 16:33:00
N otes: (Same As: Flexeril) Ketorolac
60 mg, 2 Inactive mL, Route: IM, 2015 [facility] Drug form: INJ, ONCE, Dosing Weight 81.818, kg, Priority: STAT, Start date: 12/30/15 16:33:00, Stop date: 12/30/15 16:33:00
N otes: (Same as:Toradol) IV bolus must be given >15 seconds. Give IM administration slowly and deeply into the muscle. Not for use > 4 days MEDICATION WASTE Product Size: 60 mg Product Wasted: ___ mg Allergies, Adverse Reactions, Alerts Substance Category Reaction Severity Reaction Status Date Comments Source type Reported NKDA Assertion Drug Active [facility] codeine Assertion Codeine, Drug Active Codeine, allergy [facility] Codeine Group Immunizations Immunization Date Given Site Status Last Updated Comments Source Results Order Name Results Value Reference Date Interpretation Comments Source Range HEMATOLOGY Platelet 263 K/CMM 133 - 450 04/09 [place] HEMATOLOGY MCH 30.1 pg 27.0 - 04/09 MH 31.0 [place] HEMATOLOGY MCV 86.3 fL 80.0 - 04/09 98.0 [place] HEMATOLOGY RDW 12.6 % 11.5 - 04/09 14.5 [place] HEMATOLOGY MCHC 34.8 g/dL 32.0 - 04/09 MH 36.0 [place] HEMATOLOGY WBC 6.4 K/CMM 3.7 - 10.4 04/09 [place] HEMATOLOGY Hct 32.3 % 36.0 - 04/09 MH 48.0 [place] HEMATOLOGY Hgb 11.2 g/dL 12.0 - 04/09 16.0 [place] HEMATOLOGY RBC 3.74 M/CMM 4.20 - 04/09 MH 5.40 /2017 [place] HEMATOLOGY MPV 8.0 fL 7.4 - 10.4 04/09 [place] HEMATOLOGY Segs-Bands # 3.1 K/CMM 1.5 - 8.1 04/09 [place] HEMATOLOGY Lymphocytes 2.4 K/CMM 1.0 - 5.5 04/09 MH # /2018 [place] HEMATOLOGY Eosinophils 6.8 % 0.0 - 4.0 04/09 [place] HEMATOLOGY Basophils 0.7 % 0.0 - 1.0 04/09 [place] HEMATOLOGY Monocytes # 0.5 K/CMM 0.0 - 0.8 04/09 [place] HEMATOLOGY Eosinophils 0.4 K/CMM 0.0 - 0.5 04/09 MH # 2018 [place] HEMATOLOGY Lymphocytes 37.1 % 20.0 - 04/09 MH 40.0 [place] HEMATOLOGY Segs 47.6 % 45.0 - 04/09 MH 75.0 [place] HEMATOLOGY Monocytes 7.8 % 2.0 - 12.0 04/09 [place] HEMATOLOGY Hgb 11.3 g/dL 12.0 - 04/08 MH 16. [place] HEMATOLOGY Hgb 11.4 g/dL 12.0 - 04/08 16. [place] CHEM PANEL eGFR 122 04/08 Result Comment: The eGFR is calculated using the CKD-EPI formula. In most young, healthy individuals the eGFR will be >90 mL/ min/1.73m2. The eGFR declines with age. An eGFR of 60-89 may be normal in mL/min/1. some populations, particularly the elderly, for whom the CKD-EPI formula has not been extensively validated. Use of the eGFR is not recommended in the following populations: [address] Individuals with unstable creatinine concentrations, including patients and those with serious co-morbid conditions. Patients with extremes in muscle mass or diet. The data above are obtained from the National Kidney Disease Education Program (NKDEP) which additionally recommends that when the eGFR is used in patients with extremes of body mass index for purposes of drug dosing, the eGFR should be multiplied by the estimated BMI. CHEM PANEL ALT 57 unit/L 0 - 65 04/08 [place] CHEM PANEL A/G Ratio 1.1 0.7 - 1.6 04/08 [place] CHEM PANEL Globulin 3.0 g/dL 2.7 - 4.2 04/08 [place] CHEM PANEL Albumin Lvl 3.2 g/dL 3.5 - 5.0 04/08 [place] CHEM PANEL AST 43 unit/L 0 - 37 04/08 [place] CHEM PANEL CO2 27 meq/L 24 - 32 04/08 [place] CHEM PANEL Chloride Lvl 108 meq/L 95 - 109 04/08 [place] CHEM PANEL Potassium 3.2 meq/L 3.5 - 5.1 04/08 MH Lvl [place] CHEM PANEL Sodium Lvl 142 meq/L 135 - 145 04/08 [place] CHEM PANEL Creatinine 0.55 mg/dL 0.50 - 04/08 MH Lvl 1.40 [place] CHEM PANEL Bili Total 0.2 mg/dL 0.2 - 1.3 04/08 [place] CHEM PANEL Alk Phos 71 unit/L 39 - 136 04/08 [place] CHEM PANEL AGAP 10.2 meq/L 10.0 - 04/08 MH 20.0 [place] CHEM PANEL Total 6.2 g/dL 6.4 - 8.4 04/08 [place] CHEM PANEL B/C Ratio 15 6 - 25 04/08 [place] CHEM PANEL Calcium Lvl 8.1 mg/dL 8.5 - 10.5 04/08 [place] CHEM PANEL Glucose Lvl 85 mg/dL 70 - 99 04/08 [place] CHEM PANEL BUN 8 mg/dL 7 - 22 04/08 [place] HEMATOLOGY WBC 7.4 K/CMM 3.7 - 10.4 04/08 [place] HEMATOLOGY MCH 30.3 pg 27.0 - 04/08 MH 31.0 [place] HEMATOLOGY MCV 85.7 fL 80.0 - 04/08 MH 98.0 [place] HEMATOLOGY RBC 3.73 M/CMM 4.20 - 04/08 MH 5.40 [place] HEMATOLOGY Hct 32.0 % 36.0 - 04/08 MH 48.0 [place] HEMATOLOGY MCHC 35.3 g/dL 32.0 - 04/08 MH 36.0 [place] HEMATOLOGY RDW 12.7 % 11.5 - 04/08 MH 14. [place] HEMATOLOGY Platelet 250 K/CMM 133 - 450 04/08 [place] HEMATOLOGY MPV 7.9 fL 7.4 - 10.4 04/08 [place] HEMATOLOGY Basophils # 0.1 K/CMM 0.0 - 0.2 04/08 [place] HEMATOLOGY Eosinophils 0.5 K/CMM 0.0 - 0.5 04/08 MH # [place] HEMATOLOGY Monocytes # 0.6 K/CMM 0.0 - 0.8 04/08 [place] HEMATOLOGY Segs-Bands # 3.4 K/CMM 1.5 - 8.1 04/08 [place] HEMATOLOGY Lymphocytes 2.8 K/CMM 1.0 - 5.5 04/08 MH # [place] HEMATOLOGY Basophils 0.9 % 0.0 - 1.0 04/08 [place] HEMATOLOGY Eosinophils 7.3 % 0.0 - 4.0 04/08 [place] HEMATOLOGY Monocytes 8.6 % 2.0 - 12.0 04/08 [place] HEMATOLOGY Segs 45.4 % 45.0 - 04/08 MH 75.0 [place] HEMATOLOGY Lymphocytes 37.8 % 20.0 - 04/08 MH 40.0 [place] BLOOD BANK Antibody Negative 04/08 RESULTS Scrn [place] (04/07/18 11:25 PM) BLOOD BANK ABO/Rh O POS 04/08 RESULTS /2017 [place] URINE AND UA Protein 30 mg/dL Negative 04/08 STOOL mg/dL [place] URINE AND UA Glucose Negative Negative 04/08 STOOL mg/dL mg/dL [place] URINE AND UA <=1.0 0.1 - 1.0 04/08 STOOL Urobilinogen mg/dL [place] URINE AND UA Leuk Est Small Negative 04/08 STOOL [place] *ABN* (04/07/18 8:02 PM) URINE AND UA Ketones Negative Negative 04/08 STOOL mg/dL mg/dL [place] URINE AND UA Bili Negative Negative 04/08 STOOL [place] *NA* (04/07/18 8:02 PM) URINE AND UA Sq Epi Moderate Few /LPF 04/08 STOOL /LPF /2017 [place] URINE AND UA RBC null 0 - 2 04/08 STOOL [place] URINE AND UA Blood Large Negative 04/08 STOOL [place] *ABN* (04/07/18 8:02 PM) URINE AND UA Nitrite Negative Negative 04/08 [place] (04/07/18 8:02 PM) URINE AND UA Color Yellow Yellow 04/08 [place] *NA* (04/07/18 8:02 PM) URINE AND UA Turbidity Marked Clear 04/08 [place] *ABN* (04/07/18 8:02 PM) URINE AND UA pH 6.0 5.0 - 8.0 04/08 [place] URINE AND UA Spec Grav 1.016 <=1.030 04/08 [place] CARDIAC CK MB Index 1.6 0.0 - 2.5 04/08 ENZYMES [place] CARDIAC Troponin-I null 0.00 - 04/08 MH ENZYMES 0.40 [place] CARDIAC CK MB 0.7 ng/mL 0.5 - 3.6 04/08 ENZYMES [place] CARDIAC Total CK 43 unit/L 12 - 191 04/08 [place] CHEM PANEL Lipase Lvl 1224 73 - 393 04/08 unit/L [place] CHEM PANEL Globulin 3.6 g/dL 2.7 - 4.2 04/08 [place] CHEM PANEL A/G Ratio 1.0 0.7 - 1.6 04/08 [place] CHEM PANEL AGAP 9.9 meq/L 10.0 - 04/08 20.0 [place] CHEM PANEL B/C Ratio 18 6 - 25 04/08 [place] CHEM PANEL eGFR 115 04/08 Result Comment: The eGFR is calculated using the CKD-EPI formula. In most young, healthy individuals the eGFR will be >90 mL/ min/1.73m2. The eGFR declines with age. An eGFR of 60-89 may be normal in mL/min/1.7 2018 some populations, particularly the elderly, for whom the CKD-EPI formula has not been extensively validated. Use of the eGFR is not recommended in the following populations: [address] Individuals with unstable creatinine concentrations, including patients and those with serious co-morbid conditions. Patients with extremes in muscle mass or diet. The data above are obtained from the National Kidney Disease Education Program (NKDEP) which additionally recommends that when the eGFR is used in patients with extremes of body mass index for purposes of drug dosing, the eGFR should be multiplied by the estimated BMI. CHEM PANEL AST 50 unit/L 0 - 37 04/08 [place] CHEM PANEL Alk Phos 89 unit/L 39 - 136 04/08 [place] CHEM PANEL Albumin Lvl 3.5 g/dL 3.5 - 5.0 04/08 [place] CHEM PANEL Total 7.1 g/dL 6.4 - 8.4 04/08 Protein [place] CHEM PANEL ALT 64 unit/L 0 - 65 04/08 [place] CHEM PANEL Bili Total 0.1 mg/dL 0.2 - 1.3 04/08 [place] CHEM PANEL Chloride Lvl 108 meq/L 95 - 109 04/08 [place] CHEM PANEL Potassium 3.9 meq/L 3.5 - 5.1 04/08 Lvl [place] CHEM PANEL Sodium Lvl 143 meq/L 135 - 145 04/08 [place] CHEM PANEL Creatinine 0.66 mg/dL 0.50 - 04/08 MH Lvl 1. [place] CHEM PANEL BUN 12 mg/dL 7 - 22 04/08 [place] CHEM PANEL Calcium Lvl 9.0 mg/dL 8.5 - 10.5 04/08 [place] CHEM PANEL CO2 29 meq/L 24 - 32 04/08 [place] CHEM PANEL Glucose Lvl 82 mg/dL 70 - 99 04/08 [place] ENDOCRINOL S Preg Negative Negative 04/08 OGY [place] *NA* (04/07/18 7:37 PM) HEMATOLOGY Eosinophils 0.6 K/CMM 0.0 - 0.5 04/08 MH # [place] HEMATOLOGY Basophils # 0.1 K/CMM 0.0 - 0.2 04/08 [place] HEMATOLOGY Basophils 0.9 % 0.0 - 1.0 04/08 [place] HEMATOLOGY Segs 48.5 % 45.0 - 04/08 MH 75.0 [place] HEMATOLOGY Monocytes 6.6 % 2.0 - 12.0 04/08 [place] HEMATOLOGY Lymphocytes 36.8 % 20.0 - 04/08 MH 40.0 [place] HEMATOLOGY Segs-Bands # 3.7 K/CMM 1.5 - 8.1 04/08 [place] HEMATOLOGY Monocytes # 0.5 K/CMM 0.0 - 0.8 04/08 [place] HEMATOLOGY Eosinophils 7.2 % 0.0 - 4.0 04/08 [place] HEMATOLOGY Lymphocytes 2.8 K/CMM 1.0 - 5.5 04/08 MH # /2018 [place] HEMATOLOGY MCHC 35.0 g/dL 32.0 - 04/08 MH 36.0 [place] HEMATOLOGY RDW 12.5 % 11.5 - 04/08 MH 14.5 [facility] MCH 30.0 pg 27.0 - 04/08 MH 31.0 [place] HEMATOLOGY Platelet 306 K/CMM 133 - 450 04/08 [facility] MPV 7.7 fL 7.4 - 10.4 04/08 [facility] WBC 7.7 K/CMM 3.7 - 10.4 04/08 [place] HEMATOLOGY RBC 4.35 M/CMM 4.20 - 04/08 MH 5.40 [place] HEMATOLOGY Hct 37.3 % 36.0 - 04/08 MH 48.0 [place] HEMATOLOGY MCV 85.7 fL 80.0 - 04/08 MH 98.0 [place] ED ED Clinical Indication: Abdominal pain. Cholecystectomy one month ago. ERCP 2 weeks ago. Epigastric pain radiating to the right side of the abdomen. 04/07 - [facility] Abdomen/Pe Abdomen/Pelv /2017 - [place] lvis IV is IV Comparison: CT of the abdomen and pelvis 03/15/2018. contrast contrast only CT only CT Read by: Zoran Kincaid MD Dictated Date/time: 04/07/18 22:41 TECHNIQUE: Helical imaging was performed after injection of IV contrast, from the diaphragm through the symphysis with multiplanar reformations obtained. Electronically Signed by: Zoran Kincaid MD 04/07/18 22:51 FINAL REPORT IV CONTRAST: 100 mL of Omnipaque GI CONTRAST: No oral contrast was administered. DLP: 583.84 mGy-cm FINDINGS: LOWER CHEST: Dependent atelectasis is noted. LIVER: The liver parenchyma is normal in appearance without masses or intrahepatic biliary ductal dilatation. The portal vein is normal in caliber. BILIARY TREE: A new biliary stent is seen from the common bile duct to duodenum. Mild pneumobilia is identified. There is decreased intrahepatic biliary ductal dilatation since the prior study. GALLBLADDER: The gallbladder is surgically absent, surgical clips are seen within the gallbladder fossa. PANCREAS: The pancreas is unremarkable. The pancreatic duct is normal in caliber. SPLEEN: The spleen is normal in size and there are no parenchymal abnormalities. ADRENALS: The right adrenal gland is unremarkable. The left adrenal gland is unremarkable. KIDNEYS: A 3 mm nonobstructing stone is again seen within the midpole left kidney. There is symmetric renal enhancement. No hydronephrosis or hydroureter is seen. BOWEL: A moderate amount of fecal material is noted within the colon. There is no evidence of bowel obstruction. APPENDIX: The appendix is not seen suggesting prior appendectomy. PELVIS: There are no pelvic masses. The urinary bladder is unremarkable. The uterus and ovaries are unremarkable. PERITONEUM: There is trace free fluid in the pelvis, which may be physiologic. The previous noted free air is decreased since the prior study with small residual foci of air anterior to the left lower liver. SOFT TISSUES: Scarring is seen within the midline upper abdomen, which is likely from prior surgery. LYMPH NODES: There are small bilateral inguinal and mesenteric lymph nodes , which are most likely reactive in etiology. VASCULATURE: The abdominal aorta is normal in caliber. The branches of the abdominal aorta are widely patent. MUSCULOSKELETAL: The visualized bony skeleton is unremarkable. IMPRESSION: 1. Biliary stent the proximal common bile duct to duodenum. Mild pneumobilia, which is new since the prior study. Decreased intrahepatic biliary ductal dilatation since prior study. 2. No evidence of bowel obstruction. 3. Previously noted intraperitoneal free air decrease since the prior study with small residual foci of air anterior to the left lobe of the liver. SL: KPATEL-M Chest Chest 1view XR CHEST 1 VIEW 04/07 - [facility] 1view DX /2017 - [place] HISTORY: - epigastric pain radiating to back. Read by: Giorgi Stark MD Dictated Date/time: 04/07/18 20:20 Electronically Signed by: Giorgi Stark MD 04/07/18 20:20 FINAL REPORT COMPARISON: 03/20/2018 FINDINGS: The lungs are clear. The heart and vascular markings are normal. No pleural abnormality. The bones are intact. IMPRESSION: No active process. SL: [facility] CHEM PANEL eGFR 118 03/22 Result Comment: The eGFR is calculated using the CKD-EPI formula. In most young, healthy individuals the eGFR will be >90 mL/ min/1.73m2. The eGFR declines with age. An eGFR of 60-89 may be normal in mL/min/1.7 /2018 some populations, particularly the elderly, for whom the CKD-EPI formula has not been extensively validated. Use of the eGFR is not recommended in the following populations: [facility] 3m2 Individuals with unstable creatinine concentrations, including patients and those with serious co-morbid conditions. Patients with extremes in muscle mass or diet. The data above are obtained from the National Kidney Disease Education Program (NKDEP) which additionally recommends that when the eGFR is used in patients with extremes of body mass index for purposes of drug dosing, the eGFR should be multiplied by the estimated BMI. CHEM PANEL Sodium Lvl 143 meq/L 135 - 145 03/22 [facility] CHEM PANEL Potassium 3.7 meq/L 3.5 - 5.1 03/22 [facility] CHEM PANEL Chloride Lvl 111 meq/L 95 - 109 03/22 [facility] CHEM PANEL CO2 26 meq/L 24 - 32 03/22 [facility] CHEM PANEL AGAP 9.7 meq/L 10.0 - 03/22 MH 20.0 [facility] CHEM PANEL Calcium Lvl 8.1 mg/dL 8.5 - 10.5 03/22 [facility] CHEM PANEL Creatinine 0.60 mg/dL 0.50 - 03/22 MH Lvl 1.40 /2017 [facility] CHEM PANEL BUN 6 mg/dL 7 - 22 03/22 [facility] CHEM PANEL Glucose Lvl 129 mg/dL 70 - 99 03/22 [facility] HEMATOLOGY Monocytes 9.7 % 2.0 - 12.0 03/22 [facility] HEMATOLOGY Lymphocytes 46.5 % 20.0 - 03/22 MH 40.0 /2017 [facility] HEMATOLOGY Segs 33.7 % 45.0 - 03/22 MH 75.0 /2018 [facility] HEMATOLOGY Lymphocytes 2.0 K/CMM 1.0 - 5.5 03/22 MH # /2018 [facility] HEMATOLOGY Segs-Bands # 1.5 K/CMM 1.5 - 8.1 03/22 [facility] HEMATOLOGY Eosinophils 9.0 % 0.0 - 4.0 03/22 MH [facility] HEMATOLOGY Basophils 1.1 % 0.0 - 1.0 03/22 [facility] HEMATOLOGY Eosinophils 0.4 K/CMM 0.0 - 0.5 03/22 MH # /2018 [facility] HEMATOLOGY Monocytes # 0.4 K/CMM 0.0 - 0.8 03/22 /2017 [facility] HEMATOLOGY Hct 33.1 % 36.0 - 03/22 MH 48.0 [facility] HEMATOLOGY WBC 4.4 K/CMM 3.7 - 10.4 03/22 [facility] HEMATOLOGY RBC 3.74 M/CMM 4.20 - 03/22 MH 5.40 /2017 [facility] HEMATOLOGY Hgb 11.2 g/dL 12.0 - 03/22 16.0 [facility] HEMATOLOGY Platelet 247 K/CMM 133 - 450 03/22 [facility] HEMATOLOGY MCH 29.9 pg 27.0 - 03/22 31.0 [facility] HEMATOLOGY MCV 88.6 fL 80.0 - 03/22 98.0 [facility] HEMATOLOGY RDW 13.1 % 11.5 - 03/22 MH 14.5 [facility] HEMATOLOGY MCHC 33.7 g/dL 32.0 - 03/22 36.0 /2017 [facility] HEMATOLOGY MPV 8.1 fL 7.4 - 10.4 03/22 [facility] URINE AND Fecal Rare 03/21 STOOL Leukocyte /2017 [facility] (03/21/18 3:22 PM) URINE AND Occult Bld Positive Negative 03/21 STOOL Stl /2017 [facility] *ABN* (03/21/18 3:22 PM) BLOOD BANK ABO/Rh O POS 03/21 RESULTS /2017 [facility] BLOOD BANK Antibody Negative 03/21 RESULTS Scrn [facility] (03/21/18 6:40 AM) CHEM PANEL Lipase Lvl 242 unit/L 73 - 393 03/21 [facility] ELECTROLYT CO2 27 meq/L 24 - 32 03/21 ES [facility] ELECTROLYT Chloride Lvl 108 meq/L 95 - 109 03/21 ES [facility] ELECTROLYT Potassium 3.6 meq/L 3.5 - 5.1 03/21 ES Lvl [facility] ELECTROLYT Calcium Lvl 8.6 mg/dL 8.5 - 10.5 03/21 ES [facility] ELECTROLYT Glucose Lvl 79 mg/dL 70 - 99 03/21 ES [facility] ELECTROLYT BUN 9 mg/dL 7 - 22 03/21 ES [facility] ELECTROLYT Sodium Lvl 138 meq/L 135 - 145 03/21 ES [facility] ELECTROLYT Creatinine 0.51 mg/dL 0.50 - 03/21 ES Lvl 1.40 /2017 [facility] ELECTROLYT eGFR 125 03/21 Result Comment: The eGFR is calculated using the CKD-EPI formula. In most young, healthy individuals the eGFR will be >90 mL/ min/1.73m2. The eGFR declines with age. An eGFR of 60-89 may be normal in ES mL/min/1.7 /2017 some populations, particularly the elderly, for whom the CKD-EPI formula has not been extensively validated. Use of the eGFR is not recommended in the following populations: [facility] 3m2 Individuals with unstable creatinine concentrations, including patients and those with serious co-morbid conditions. Patients with extremes in muscle mass or diet. The data above are obtained from the National Kidney Disease Education Program (NKDEP) which additionally recommends that when the eGFR is used in patients with extremes of body mass index for purposes of drug dosing, the eGFR should be multiplied by the estimated BMI. ELECTROLYT AGAP 6.6 meq/L 10.0 - 03/21 ES 20.0 [facility] ENDOCRINOL hCG Tot null 03/21 OGY [facility] HEMATOLOGY Lymphocytes 37.8 % 20.0 - 03/21 MH 40.0 /2018 [facility] HEMATOLOGY Lymphocytes 2.1 K/CMM 1.0 - 5.5 03/21 MH # /2018 [facility] HEMATOLOGY Basophils 0.7 % 0.0 - 1.0 03/21 [facility] HEMATOLOGY Segs-Bands # 2.5 K/CMM 1.5 - 8.1 03/21 [facility] HEMATOLOGY Monocytes 9.0 % 2.0 - 12.0 03/21 [facility] HEMATOLOGY Eosinophils 7.3 % 0.0 - 4.0 03/21 [facility] HEMATOLOGY Eosinophils 0.4 K/CMM 0.0 - 0.5 / MH # /2018 [facility] HEMATOLOGY Monocytes # 0.5 K/CMM 0.0 - 0.8 03/21 [facility] HEMATOLOGY Segs 45.2 % 45.0 - 03/21 MH 75.0 /2018 [facility] HEMATOLOGY WBC 5.6 K/CMM 3.7 - 10.4 03/21 [facility] HEMATOLOGY RBC 4.05 M/CMM 4.20 - 03/21 MH 5.40 /2018 [facility] HEMATOLOGY Hgb 12.1 g/dL 12.0 - 05/ MH 16.0 /2017 [facility] HEMATOLOGY MCV 87.7 fL 80.0 - 03/21 MH 98.0 /2018 [facility] HEMATOLOGY MCH 29.8 pg 27.0 - 03/21 MH 31.0 /2017 [facility] HEMATOLOGY Hct 35.6 % 36.0 - 05 MH 48.0 /[address] [facility] MCHC 34.0 g/dL 32.0 - 03/[address] [facility] Platelet 266 K/CMM 133 - 450 03/[address] [facility] MPV 8.2 fL 7.4 - 10.4 03/[address] [facility] RDW 13.0 % 11.5 - 03/21 MH 14.5 [facility] CHEM PANEL Lactic Acid 0.7 mMol/L 0.5 - 2.2 03/21 Lvl /2018 [facility] CHEM PANEL Lipase Lvl 376 unit/L 73 - 393 03/21 [facility] CHEM PANEL eGFR 116 03/21 Result Comment: The eGFR is calculated using the CKD-EPI formula. In most young, healthy individuals the eGFR will be >90 mL/ min/1.73m2. The eGFR declines with age. An eGFR of 60-89 may be normal in MH mL/min/1.7 2018 some populations, particularly the elderly, for whom the CKD-EPI formula has not been extensively validated. Use of the eGFR is not recommended in the following populations: [facility] 3m2 Individuals with unstable creatinine concentrations, including patients and those with serious co-morbid conditions. Patients with extremes in muscle mass or diet. The data above are obtained from the National Kidney Disease Education Program (NKDEP) which additionally recommends that when the eGFR is used in patients with extremes of body mass index for purposes of drug dosing, the eGFR should be multiplied by the estimated BMI. CHEM PANEL Glucose Lvl 83 mg/dL 70 - 99 03/21 [facility] CHEM PANEL Total 7.6 g/dL 6.4 - 8.4 03/21 [facility] CHEM PANEL Calcium Lvl 9.2 mg/dL 8.5 - 10.5 03/21 [facility] CHEM PANEL AST 30 unit/L 0 - 37 03/21 [facility] CHEM PANEL ALT 251 unit/L 0 - 65 03/21 [facility] CHEM PANEL Albumin Lvl 3.4 g/dL 3.5 - 5.0 03/21 [facility] CHEM PANEL Bili Total 0.2 mg/dL 0.2 - 1.3 03/21 [facility] CHEM PANEL Alk Phos 177 unit/L 39 - 136 03/21 [facility] CHEM PANEL Creatinine 0.64 mg/dL 0.50 - 03/21 Lvl 1.40 /2017 [facility] CHEM PANEL BUN 10 mg/dL 7 - 22 03/21 [facility] CHEM PANEL CO2 29 meq/L 24 - 32 03/21 [facility] CHEM PANEL Chloride Lvl 104 meq/L 95 - 109 03/21 [facility] CHEM PANEL Potassium 3.9 meq/L 3.5 - 5.1 03/21 Lvl /2017 [facility] CHEM PANEL Sodium Lvl 139 meq/L 135 - 145 03/21 [facility] CHEM PANEL A/G Ratio 0.8 0.7 - 1.6 03/21 [facility] CHEM PANEL Globulin 4.2 g/dL 2.7 - 4.2 03/21 [facility] CHEM PANEL B/C Ratio 16 6 - 25 03/21 [facility] CHEM PANEL AGAP 9.9 meq/L 10.0 - 03/21 20.0 /2017 [facility] URINE AND UA Hyal Cast 1 /LPF 0 - 2 03/21 [facility] URINE AND UA Bacteria Occasional None Seen 03/21 STOOL /HPF /HPF [facility] URINE AND UA Sq Epi Occasional Few /LPF 03/21 STOOL /LPF [facility] URINE AND UA Nitrite Negative Negative 03/21 [facility] (03/20/18 9:44 PM) URINE AND UA Leuk Est Negative Negative 03/21 [facility] (03/20/18 9:44 PM) URINE AND UA RBC 5 /HPF 0 - 2 03/21 [facility] URINE AND UA WBC null 0 - 5 03/21 [facility] URINE AND UA Color Ltyellow 03/21 [facility] URINE AND UA Bili Negative Negative 03/21 [facility] *NA* (03/20/18 9:44 PM) URINE AND UA Ketones Negative Negative 03/21 STOOL mg/dL mg/dL /2017 [facility] URINE AND UA 2.0 mg/dL 0.1 - 1.0 03/21 STOOL Urobilinogen /2017 [facility] URINE AND UA Blood Large Negative 03/21 STOOL [facility] *ABN* (03/20/18 9:44 PM) URINE AND UA pH 7.0 5.0 - 8.0 03/21 STOOL [facility] URINE AND UA Spec Grav 1.013 <=1.030 03/21 STOOL [facility] URINE AND UA Turbidity Clear Clear 03/21 STOOL [facility] (03/20/18 9:44 PM) URINE AND UA Glucose Negative Negative 03/21 STOOL mg/dL mg/dL [facility] URINE AND UA Protein Negative Negative 03/21 STOOL mg/dL mg/dL [facility] CARDIAC Total CK 36 unit/L 12 - 191 03/21 ENZYMES /2017 [facility] HEMATOLOGY Platelet 301 K/CMM 133 - 450 03/21 [facility] HEMATOLOGY MCH 30.7 pg 27.0 - 03/21 31.0 /2017 [facility] HEMATOLOGY MCHC 34.6 g/dL 32.0 - 03/21 36.0 /2017 [facility] HEMATOLOGY RDW 12.7 % 11.5 - 03/21 14.5 /2017 [facility] HEMATOLOGY MCV 88.8 fL 80.0 - 03/21 98.0 /2017 [facility] HEMATOLOGY Hct 39.7 % 36.0 - 03/21 48.0 /2017 [facility] HEMATOLOGY Hgb 13.7 g/dL 12.0 - 03/21 16.0 /2018 [facility] HEMATOLOGY RBC 4.47 M/CMM 4.20 - 05 5.40 /2018 [facility] HEMATOLOGY WBC 6.7 K/CMM 3.7 - 10.4 03/21 MH /2017 [facility] HEMATOLOGY MPV 8.3 fL 7.4 - 10.4 03/21 /2017 [facility] HEMATOLOGY Lymphocytes 30.2 % 20.0 - 03/21 40.0 /2017 [facility] HEMATOLOGY Segs 54.5 % 45.0 - 03/21 75.0 /2018 [facility] HEMATOLOGY Eosinophils 0.5 K/CMM 0.0 - 0.5 03/21 # /2018 [facility] HEMATOLOGY Monocytes # 0.5 K/CMM 0.0 - 0.8 03/21 [facility] HEMATOLOGY Segs-Bands # 3.6 K/CMM 1.5 - 8.1 03/21 [facility] HEMATOLOGY Lymphocytes 2.0 K/CMM 1.0 - 5.5 03/21 # /2018 [facility] HEMATOLOGY Basophils 0.6 % 0.0 - 1.0 03/21 [facility] HEMATOLOGY Eosinophils 6.8 % 0.0 - 4.0 03/21 [facility] HEMATOLOGY Monocytes 7.9 % 2.0 - 12.0 03/21 [facility] Abdomen Abdomen Exam: Abdomen ultrasound 03/21 complete complete US /2017 US Clinical Indication: Abdominal pain. Read by: Kaushik Richmond MD Dictated Date/time: 03/21/18 02:42 Electronically Signed by: Kaushik Richmond MD 03/21/18 02:54 FINAL REPORT Technique: Abdominal ultrasound is performed. Findings: Exam shows normal liver. Small gallbladder fossa fluid collection seen status post biliary stent placement and cholecystectomy can be postoperative changes and/or biloma. HIDA can evaluate. There is no clinically reported sonographic Baker's sign. Right kidney is normal. There is fullness of the left renal pelvis. Spleen is normal. There is no intra or extrahepatic biliary duct dilation, with CB D=6 mm. Pancreas is not weel seen. Visualized aorta and IVC are normal. Liver=14 cm. Spleen=10.7 x 4.2 x 3.9 cm. Right kidney=13.7 x 5.4 x 4.8 cm. Left kidney=13 x 5.4 x 5.1 cm. Impression: Small gallbladder fossa fluid collection status post biliary stent placement and cholecystectomy that can be postoperative changes and/or biloma. HIDA can evaluate. Chest Chest 1view Clinical Indication: Chest pain; 03/20 1view DX DX /2017 Comparison: None Read by: Boris Lora MD Dictated Date/time: 03/20/18 21:34 FINDINGS: Electronically Signed by: Boris Lora MD 03/20/18 21:34 FINAL REPORT Single AP chest radiograph shows normal lung volumes without interstitial or airspace opacities, pleural effusions or pneumothorax. The heart size and pulmonary vasculature are normal. The trachea is midline. There are no clinically significant osseous abnormalities noted. IMPRESSION: No chest radiographic evidence of acute cardiopulmonary disease. SL: HINA CHEM PANEL B/C Ratio 13 6 - 25 03/18 [facility] CHEM PANEL AGAP 6.8 meq/L 10.0 - 03/18 MH 20.0 /2017 [facility] CHEM PANEL Bili Total 0.3 mg/dL 0.2 - 1.3 03/18 [facility] CHEM PANEL A/G Ratio 1.0 0.7 - 1.6 03/18 [facility] CHEM PANEL Globulin 3.1 g/dL 2.7 - 4.2 03/18 [facility] CHEM PANEL Albumin Lvl 3.0 g/dL 3.5 - 5.0 03/18 [facility] CHEM PANEL Total 6.1 g/dL 6.4 - 8.4 03/18 [facility] CHEM PANEL Alk Phos 190 unit/L 39 - 136 03/18 [facility] CHEM PANEL AST 97 unit/L 0 - 37 03/18 [facility] CHEM PANEL ALT 425 unit/L 0 - 65 03/18 [facility] CHEM PANEL Calcium Lvl 8.2 mg/dL 8.5 - 10.5 03/18 [facility] CHEM PANEL Creatinine 0.52 mg/dL 0.50 - 03/18 Lvl 1.40 [facility] CHEM PANEL Sodium Lvl 142 meq/L 135 - 145 03/18 [facility] CHEM PANEL BUN 7 mg/dL 7 - 22 03/18 [facility] CHEM PANEL CO2 31 meq/L 24 - 32 03/18 [facility] CHEM PANEL Potassium 3.8 meq/L 3.5 - 5.1 03/18 Lvl [facility] CHEM PANEL Chloride Lvl 108 meq/L 95 - 109 03/18 [facility] CHEM PANEL eGFR 124 03/18 Result Comment: The eGFR is calculated using the CKD-EPI formula. In most young, healthy individuals the eGFR will be >90 mL/ min/1.73m2. The eGFR declines with age. An eGFR of 60-89 may be normal in MH mL/min/1.7 some populations, particularly the elderly, for whom the CKD-EPI formula has not been extensively validated. Use of the eGFR is not recommended in the following populations: [address] Individuals with unstable creatinine concentrations, including patients and those with serious co-morbid conditions. Patients with extremes in muscle mass or diet. The data above are obtained from the National Kidney Disease Education Program (NKDEP) which additionally recommends that when the eGFR is used in patients with extremes of body mass index for purposes of drug dosing, the eGFR should be multiplied by the estimated BMI. CHEM PANEL Glucose Lvl 96 mg/dL 70 - 99 03/18 [facility] CHEM PANEL Bili Direct 0.1 mg/dL 0.0 - 0.3 03/18 [facility] Endoscopic Endoscopic Patient Name: SHALOM RIGGS 03/17 - Retro Retro /2017 - [facility] Pancreatog Pancreatogra : 1980; Age: 37 years y/o Female latasha ERCP m ERCP DX DX MR: [id number] Read by: Adolfo Cherry MD Dictated Date/time: 03/18/18 09:00 Electronically Signed by: Adolfo Cherry MD 03/18/18 09:02 FINAL REPORT Study: Endoscopic Retro Pancreatogram ERCP DX dated 03/17/2018. Clinical Indication: dilated cbd, stent placed - Fluoro Time: 3 min 35 sec , Dose: 76.35 mGy, OEC 9900 5, Endo Rm 1; Comparison: None 3 spot views from an ERCP shows very little contrast within the biliary ductal system. Patient is status post cholecystectomy. There is mild dilatation of the common bile duct and visualized proximal in trahepatic biliary ducts. Last film shows placement of a common bile duct stent. SL: [id number] CHEM PANEL A/G Ratio 1.0 0.7 - 1.6 03/17 [facility] CHEM PANEL ALT 623 unit/L 0 - 65 03/17 [facility] CHEM PANEL Bili Direct 0.2 mg/dL 0.0 - 0.3 03/17 [facility] CHEM PANEL Bili 0.2 mg/dL 0.0 - 1.0 03/17 [facility] CHEM PANEL AST 284 unit/L 0 - 37 03/17 [facility] CHEM PANEL Alk Phos 214 unit/L 39 - 136 03/17 [facility] CHEM PANEL Globulin 3.1 g/dL 2.7 - 4.2 03/17 [facility] CHEM PANEL Bili Total 0.4 mg/dL 0.2 - 1.3 03/17 [facility] CHEM PANEL Albumin Lvl 3.1 g/dL 3.5 - 5.0 03/17 [facility] CHEM PANEL Total 6.2 g/dL 6.4 - 8.4 03/17 Protein [facility] CHEM PANEL Lipase Lvl 132 unit/L 73 - 393 03/17 [facility] CHEM PANEL eGFR 128 03/17 Result Comment: The eGFR is calculated using the CKD-EPI formula. In most young, healthy individuals the eGFR will be >90 mL/ min/1.73m2. The eGFR declines with age. An eGFR of 60-89 may be normal in MH mL/min/1.7 some populations, particularly the elderly, for whom the CKD-EPI formula has not been extensively validated. Use of the eGFR is not recommended in the following populations: [facility] 3m2 Individuals with unstable creatinine concentrations, including patients and those with serious co-morbid conditions. Patients with extremes in muscle mass or diet. The data above are obtained from the National Kidney Disease Education Program (NKDEP) which additionally recommends that when the eGFR is used in patients with extremes of body mass index for purposes of drug dosing, the eGFR should be multiplied by the estimated BMI. CHEM PANEL AST 273 unit/L 0 - 37 03/17 [facility] CHEM PANEL ALT 615 unit/L 0 - 65 03/17 [facility] CHEM PANEL Bili Total 0.6 mg/dL 0.2 - 1.3 03/17 [facility] CHEM PANEL Alk Phos 215 unit/L 39 - 136 03/17 [facility] CHEM PANEL Globulin 3.2 g/dL 2.7 - 4.2 03/17 [facility] CHEM PANEL B/C Ratio 15 6 - 25 03/17 [facility] CHEM PANEL AGAP 10.8 meq/L 10.0 - 03/17 MH 20.0 /2017 [facility] CHEM PANEL A/G Ratio 1.0 0.7 - 1.6 03/17 [facility] CHEM PANEL Albumin Lvl 3.2 g/dL 3.5 - 5.0 03/17 [facility] CHEM PANEL Sodium Lvl 142 meq/L 135 - 145 03/17 [facility] CHEM PANEL Potassium 3.8 meq/L 3.5 - 5.1 03/17 Lvl [facility] CHEM PANEL Total 6.4 g/dL 6.4 - 8.4 03/17 Protein [facility] CHEM PANEL Calcium Lvl 8.4 mg/dL 8.5 - 10.5 03/17 [facility] CHEM PANEL Glucose Lvl 79 mg/dL 70 - 99 03/17 [facility] CHEM PANEL BUN 7 mg/dL 7 - 22 03/17 [facility] CHEM PANEL Creatinine 0.48 mg/dL 0.50 - 03/17 Lvl 1.40 [facility] CHEM PANEL Chloride Lvl 108 meq/L 95 - 109 03/17 [facility] CHEM PANEL CO2 27 meq/L 24 - 32 03/17 [facility] Abdomen wo Abdomen wo MR of the abdomen without contrast dated 03/15/2018. 03/17 contrast contrast MRI /2017 - [facility] MRI HISTORY: Right upper quadrant abdominal pain. Nausea and vomiting. Chills. 6 days status post cholecystectomy. Read by: Vinny Mendes MD Dictated Date/time: 03/17/18 04:10 Electronically Signed by: Vinny Mendes MD 03/17/18 04:23 FINAL REPORT A noncontrast MR of the abdomen was performed using MRCP protocol. Correlation is made with a CT the abdomen dated 03/15/2018. FINDINGS: The patient is status post cholecystectomy. A small volume of postoperative fluid is identified in the gallbladder fossa with postoperative changes in the subhepatic fat. The common bile duct (9 mm) and proximal hepatic ducts are mildly dilated. No intraductal filling defects are identified to suggest choledocholithiasis. The distal common duct appears to taper normally. 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 No MR abnormalities of the liver, spleen, pancreas, adrenal glands or kidneys are identified. There is no evidence of renal collecting system obstruction. Free intraperitoneal air is again identified and was better visualized on the abdominal CT. This finding is likely postoperative in the setting of recent surgery. The abdominal aorta is normal in caliber. There is no evidence of retroperitoneal mass or adenopathy. IMPRESSION: 1. Findings compatible with the history of recent cholecystectomy. 2. The common bile duct (9 mm) and proximal hepatic ducts are mildly dilated. This may represent postcholecystectomy ectasia. There is no MR evidence of choledocholithiasis. SL: 131 URINE AND Occult Bld Positive Negative 03/16 STOOL [facility] *ABN* (03/16/18 9:14 AM) CHEM PANEL Lipase Lvl 159 unit/L 73 - 393 03/16 [facility] CHEM PANEL eGFR 123 03/16 Result Comment: The eGFR is calculated using the CKD-EPI formula. In most young, healthy individuals the eGFR will be >90 mL/ min/1.73m2. The eGFR declines with age. An eGFR of 60-89 may be normal in mL/min/1. some populations, particularly the elderly, for whom the CKD-EPI formula has not been extensively validated. Use of the eGFR is not recommended in the following populations: [facility] 3m2 Individuals with unstable creatinine concentrations, including patients and those with serious co-morbid conditions. Patients with extremes in muscle mass or diet. The data above are obtained from the National Kidney Disease Education Program (NKDEP) which additionally recommends that when the eGFR is used in patients with extremes of body mass index for purposes of drug dosing, the eGFR should be multiplied by the estimated BMI. CHEM PANEL Creatinine 0.53 mg/dL 0.50 - 03/16 Lvl 1.40 [facility] CHEM PANEL Chloride Lvl 110 meq/L 95 - 109 03/16 [facility] CHEM PANEL Potassium 3.6 meq/L 3.5 - 5.1 03/16 Lvl [facility] CHEM PANEL Sodium Lvl 142 meq/L 135 - 145 03/16 [facility] CHEM PANEL CO2 29 meq/L 24 - 32 03/16 [facility] CHEM PANEL BUN 7 mg/dL 7 - 22 03/16 [facility] CHEM PANEL Glucose Lvl 80 mg/dL 70 - 99 03/16 [facility] CHEM PANEL AGAP 6.6 meq/L 10.0 - 03/16 MH 20.0 [facility] CHEM PANEL B/C Ratio 13 6 - 25 03/16 [facility] CHEM PANEL Calcium Lvl 7.9 mg/dL 8.5 - 10.5 03/16 [facility] LIPIDS VLDL 16 03/16 [facility] LIPIDS LDL 54 mg/dL <=99 mg/dL 03/16 (Calculated) [facility] LIPIDS CHD Risk 2.21 3.90 - 03/16 MH 5.80 [facility] LIPIDS Chol 128 mg/dL <=199 03/16 MH mg/dL [facility] LIPIDS HDL 58 mg/dL >=61 mg/dL 03/16 [facility] LIPIDS Trig 78 mg/dL <=149 03/16 mg/dL [facility] Gallbladde Gallbladder Clinical Indication: - r/o bile leak, s/p kate 3 days ago. 03/16 - r scan scan HIDA wo - [facility] HIDA wo meds NM Comparison: CT 03/15/2018 meds NM Read by: Sony Shannon MD Dictated Date/time: 03/16/18 09:48 Electronically Signed by: Sony Shannon MD 03/16/18 10:09 FINAL REPORT TECHNIQUE: Hepatobiliary scan is performed using 7.1 mCi of Tc-99m Choletec, which was administered intravenously. 60 minutes of static imaging was performed at 5 minute intervals in the frontal plane - starting 5 minutes after radiotracer administration. FINDINGS: Prompt hepatic uptake and excretion. There is progression of the radiotracer through a non dilated biliary tree and into small bowel. IMPRESSION: 1. No bile leak SL: [id number] MOLECULAR C difficile Negative Negative 03/16 DIAGNOSTIC DNA [facility] (03/15/18 9:25 PM) CHEM PANEL Magnesium 1.7 mg/dL 1.8 - 2.4 03/15 Lvl [facility] CHEM PANEL Phosphorus 3.4 mg/dL 2.5 - 4.5 03/15 [facility] CHEM PANEL Amylase Lvl 52 unit/L 25 - 115 03/15 [facility] CHEM PANEL Lipase Lvl 205 unit/L 73 - 393 03/15 [facility] ENDOCRINOL S Preg Negative Negative 03/15 OGY [facility] *NA* (03/15/18 1:41 PM) HEMATOLOGY MPV 7.7 fL 7.4 - 10.4 03/15 [facility] HEMATOLOGY RBC 3.99 M/CMM 4.20 - 03/15 MH 5.40 /2017 [facility] HEMATOLOGY WBC 7.3 K/CMM 3.7 - 10.4 03/15 [facility] HEMATOLOGY RDW 12.9 % 11.5 - 03/15 14.5 [facility] HEMATOLOGY Platelet 250 K/CMM 133 - 450 03/15 [facility] HEMATOLOGY MCH 30.2 pg 27.0 - 03/15 31.0 [facility] HEMATOLOGY MCHC 34.1 g/dL 32.0 - 03/15 36.0 /2017 [facility] HEMATOLOGY MCV 88.6 fL 80.0 - 03/15 MH 98.0 /2017 [facility] HEMATOLOGY Hct 35.3 % 36.0 - 03/15 MH 48.0 /2017 [facility] HEMATOLOGY Hgb 12.1 g/dL 12.0 - 03/15 MH 16.0 /2017 [facility] HEMATOLOGY Segs-Bands # 5.1 K/CMM 1.5 - 8.1 03/15 [facility] HEMATOLOGY Lymphocytes 1.5 K/CMM 1.0 - 5.5 / # /2017 [facility] HEMATOLOGY Basophils 0.5 % 0.0 - 1.0 03/15 [facility] HEMATOLOGY Monocytes # 0.6 K/CMM 0.0 - 0.8 03/15 [facility] HEMATOLOGY Eosinophils 0.1 K/CMM 0.0 - 0.5 03/15 [facility] HEMATOLOGY Eosinophils 1.6 % 0.0 - 4.0 03/15 [facility] HEMATOLOGY Segs 69.5 % 45.0 - 03/15 75.0 /2017 [facility] HEMATOLOGY Lymphocytes 19.9 % 20.0 - 03/15 MH 40.0 [facility] HEMATOLOGY Monocytes 8.5 % 2.0 - 12.0 03/15 [facility] URINE AND UA <=1.0 0.1 - 1.0 03/15 STOOL Urobilinogen mg/dL /2017 [facility] URINE AND UA WBC 6 /HPF 0 - 5 03/15 [facility] URINE AND UA Mucus Few /LPF None Seen 03/15 STOOL /LPF /2017 [facility] URINE AND UA RBC null 0 - 2 03/15 [facility] URINE AND UA Bacteria Occasional None Seen 03/15 STOOL /HPF /HPF /2017 [facility] URINE AND UA Leuk Est Small Negative 03/15 [facility] *ABN* (03/15/18 1:41 PM) URINE AND UA Sq Epi Many /LPF Few /LPF 03/15 [facility] URINE AND UA Spec Grav 1.015 <=1.030 03/15 [facility] URINE AND UA pH 6.0 5.0 - 8.0 03/15 [facility] URINE AND UA Turbidity Slight Clear 03/15 [facility] *ABN* (03/15/18 1:41 PM) URINE AND UA Nitrite Negative Negative 03/15 [facility] (03/15/18 1:41 PM) URINE AND UA Blood Large Negative 03/15 STOOL [facility] *ABN* (03/15/18 1:41 PM) URINE AND UA Bili Negative Negative 03/15 STOOL [facility] *NA* (03/15/18 1:41 PM) URINE AND UA Protein Negative Negative 03/15 STOOL mg/dL mg/dL [facility] URINE AND UA Ketones Negative Negative 03/15 STOOL mg/dL mg/dL [facility] URINE AND UA Glucose Negative Negative 03/15 STOOL mg/dL mg/dL [facility] URINE AND UA Color Yellow Yellow 03/15 STOOL [facility] *NA* (03/15/18 1:41 PM) ED ED Study: ED Abdomen/Pelvis IV contrast only CT 03/15 - Abdomen/Pe Abdomen/Pelv - [facility] lvis IV is IV contrast contrast only CT only CT Clinical Indication: - upper abd pain p cholecystectomy Read by: Kenton Patel MD Dictated Date/time: 03/15/18 15:08 Electronically Signed by: Kenton Patel MD 03/15/18 15:15 FINAL REPORT Comparison: CT abdomen and pelvis from 02/20/2018 TECHNIQUE: Multiple axial CT images of the abdomen and pelvis were acquired following the administration of intravenous contrast. Sagittal and coronal reformatted images were performed. CT Radiation Dose DLP 1277.17 mGy-cm FINDINGS: The visualized lung bases are clear bilaterally. The patient is status post cholecystectomy. Liver, pancreas, spleen, adrenal glands, and kidneys are unremarkable. No intrahepatic or extrahepatic biliary duct dilatation is seen. Urinary bladder is well-distended. Uterus and right ovary are unremarkable. Lobulated, rim-enhancing 1.8 cm left ovarian hypodense cyst is seen, may represent corpus luteal cyst. The visualized hollow viscera and appendix are normal in appearance. Small amount of intraperitoneal free air is seen, likely iatrogenic. No organized fluid collection to suggest biloma or abscess is seen. No pathologic adenopathy is noted. Surgical clips in the right lower quadrant are incidentally noted. Bilateral breast implants are seen. The right breast implant is collapsed. This there are no suspicious osseous lesions. IMPRESSION: 1. Status post cholecystectomy with small amount of intraperitoneal free air which is likely iatrogenic and related to recent surgical procedure. 2. No organized fluid collection to suggest biloma or abscess. SL: [id number] URINE CHEM U Preg Negative Negative 03/12 [place] (03/12/18 7:37 AM) URINE CHEM U Preg Negative Negative 03/06 [place] (03/06/18 11:11 AM) URINE AND UA pH 6.0 5.0 - 8.0 02/20 STOOL [place] URINE AND UA Ketones Negative Negative 02/20 [facility]OOL mg/dL mg/dL [place] URINE AND UA Glucose Negative Negative 02/20 [facility] mg/dL mg/dL [place] URINE AND UA Protein 30 mg/dL Negative 02/20 STOOL mg/dL [place] URINE AND UA Color Lizzie Yellow 02/20 [place] *ABN* (02/20/18 3:15 PM) URINE AND UA Spec Grav 1.021 <=1.030 02/20 [place] URINE AND UA Turbidity Marked Clear 02/20 [place] *ABN* (02/20/18 3:15 PM) URINE AND UA Mucus Few /LPF None Seen 02/20 STOOL /LPF [place] URINE AND UA Bacteria Moderate None Seen 02/20 [facility] /HPF /HPF /2017 [place] URINE AND UA RBC 26 /HPF 0 - 2 02/20 STOOL [place] URINE AND UA Amorph Moderate None Seen 02/20 STOOL [place] /HPF /HPF /2017 [place] URINE AND UA 2.0 mg/dL 0.1 - 1.0 02/20 STOOL Urobilinogen [place] URINE AND UA Blood Small Negative 02/20 STOOL [place] *ABN* (02/20/18 3:15 PM) URINE AND UA Bili Negative Negative 02/20 STOOL [place] *NA* (02/20/18 3:15 PM) URINE AND UA WBC 10 /HPF 0 - 5 02/20 STOOL [place] URINE AND UA Sq Epi Moderate Few /LPF 02/20 STOOL /LPF [place] URINE AND UA Nitrite Negative Negative 02/20 STOOL [place] (02/20/18 3:15 PM) URINE AND UA Leuk Est Large Negative 02/20 STOOL [place] *ABN* (02/20/18 3:15 PM) BLOOD BANK ABO/Rh O POS 02/20 RESULTS /2017 [place] BLOOD BANK Antibody Negative 02/20 RESULTS Scrn [place] (02/20/18 12:50 PM) CHEM PANEL eGFR 101 02/20 Result Comment: The eGFR is calculated using the CKD-EPI formula. In most young, healthy individuals the eGFR will be >90 mL/ min/1.73m2. The eGFR declines with age. An eGFR of 60-89 may be normal in mL/min/1. some populations, particularly the elderly, for whom the CKD-EPI formula has not been extensively validated. Use of the eGFR is not recommended in the following populations: [address] Individuals with unstable creatinine concentrations, including patients and those with serious co-morbid conditions. Patients with extremes in muscle mass or diet. The data above are obtained from the National Kidney Disease Education Program (NKDEP) which additionally recommends that when the eGFR is used in patients with extremes of body mass index for purposes of drug dosing, the eGFR should be multiplied by the estimated BMI. CHEM PANEL Sodium Lvl 143 meq/L 135 - 145 02/20 [place] CHEM PANEL Creatinine 0.77 mg/dL 0.50 - 02/20 Lvl 1.40 [place] CHEM PANEL Calcium Lvl 8.1 mg/dL 8.5 - 10.5 02/20 [place] CHEM PANEL CO2 27 meq/L 24 - 32 02/20 [place] CHEM PANEL Potassium 3.4 meq/L 3.5 - 5.1 02/20 Lvl [place] CHEM PANEL Chloride Lvl 110 meq/L 95 - 109 02/20 [place] CHEM PANEL Alk Phos 64 unit/L 39 - 136 02/20 [place] CHEM PANEL ALT 36 unit/L 0 - 65 02/20 [place] CHEM PANEL AST 14 unit/L 0 - 37 02/20 [place] CHEM PANEL Total 7.5 g/dL 6.4 - 8.4 02/20 Protein [place] CHEM PANEL Albumin Lvl 3.7 g/dL 3.5 - 5.0 02/20 [place] CHEM PANEL BUN 13 mg/dL 7 - 22 02/20 [place] CHEM PANEL Glucose Lvl 98 mg/dL 70 - 99 02/20 [place] CHEM PANEL Bili Total 0.3 mg/dL 0.2 - 1.3 02/20 [place] CHEM PANEL Globulin 3.8 g/dL 2.7 - 4.2 02/20 [place] CHEM PANEL B/C Ratio 17 6 - 25 02/20 [place] CHEM PANEL AGAP 9.4 meq/L 10.0 - 02/20 MH 20.0 [place] CHEM PANEL A/G Ratio 1.0 0.7 - 1.6 02/20 [place] ENDOCRINOL hCG Tot null 02/20 MH OGY /2017 [place] HEMATOLOGY RBC 4.68 M/CMM 4.20 - 02/20 MH 5.40 /2017 [place] HEMATOLOGY WBC 8.7 K/CMM 3.7 - 10.4 02/20 [place] HEMATOLOGY Hgb 14.3 g/dL 12.0 - 02/20 MH 16.0 [place] HEMATOLOGY Hct 41.5 % 36.0 - 02/20 MH 48.0 [place] HEMATOLOGY MCV 88.6 fL 80.0 - 02/20 MH 98.0 [place] HEMATOLOGY MPV 8.2 fL 7.4 - 10.4 02/20 [place] HEMATOLOGY RDW 13.1 % 11.5 - 02/20 MH 14. [place] HEMATOLOGY Platelet 286 K/CMM 133 - 450 02/20 [place] HEMATOLOGY MCHC 34.4 g/dL 32.0 - 02/20 MH 36.0 [place] HEMATOLOGY MCH 30.5 pg 27.0 - 02/20 MH 31.0 [place] HEMATOLOGY Segs-Bands # 5.6 K/CMM 1.5 - 8.1 02/20 [place] HEMATOLOGY Eosinophils 0.1 K/CMM 0.0 - 0.5 02/20 MH [place] HEMATOLOGY Monocytes # 0.7 K/CMM 0.0 - 0.8 02/20 [place] HEMATOLOGY Lymphocytes 2.3 K/CMM 1.0 - 5.5 02/20 MH # [place] HEMATOLOGY Basophils # 0.1 K/CMM 0.0 - 0.2 02/20 [place] HEMATOLOGY Basophils 0.6 % 0.0 - 1.0 02/20 [place] HEMATOLOGY Lymphocytes 26.4 % 20.0 - 02/20 MH 40.0 /2017 [place] HEMATOLOGY Eosinophils 1.7 % 0.0 - 4.0 02/20 [place] HEMATOLOGY Monocytes 7.5 % 2.0 - 12.0 02/20 [place] HEMATOLOGY Segs 63.8 % 45.0 - 02/20 MH 75.0 [place] Abdomen/Pe Abdomen/Pelv Abdomen/Pelvis w IV contrast CT 02/20 - [facility] lvis w IV is w IV /2017 - [place] contrast contrast CT CT TECHNIQUE: Contiguous transaxial images of the abdomen and pelvis were performed from the lung bases to the superior pubic rami with IV contrast. Read by: Sae Toro MD Dictated Date/time: 02/20/18 15:47 Electronically Signed by: Sae Toro MD 02/20/18 15:56 FINAL REPORT CLINICAL HX: - abd pain; Total DLP:661.01 mGy-cm COMPARISON: 12/22/2017 CT ABDOMEN: Lower Chest: The lung bases are clear. GI Tract: Lack of oral contrast limits evaluation of bowel. Bowel gas pattern is unremarkable. No evidence to suggest small or large bowel obstruction. There is no evidence for free fluid or free air in the abdomen. Surgical clips are noted anterior to the psoas muscle in the lower abdomen with additional surgical clips in right lower abdomen. Tract and retroperitoneum: Nonobstructing calyceal calculus, midportion of left kidney. The kidneys otherwise demonstrate normal morphology. Lymph Nodes: No significant retroperitoneal lymphadenopathy is noted. Abdominal viscera: Indeterminate subcentimeter low-density lesion is noted in right lobe of liver. The liver otherwise demonstrates normal morphology. The spleen, pancreas and both adrenals are unremark able in appearance. Gallbladder demonstrates normal morphology. Vasculature: Aorta demonstrates normal morphology. Bone and Soft tissues: No significant bony abnormality is noted. CT PELVIS: The bladder, uterus and adnexa demonstrate normal morphology. No free fluid is present in the pelvis. IMPRESSION: Nonobstructing calyceal calculus, left kidney. No obstructing ureteric calculi. No hydronephrosis. Indeterminate subcentimeter low-density lesion is visualized in the liver. This likely represents a cyst but is too small to definitively classify due to its small size. No other significant abnormality is noted. SL: [id number] Abdomen Abdomen Acute abdominal series including frontal chest 02/20 - [facility] 3+views DX 3+views DX /2017 - [place] INDICATION: Acute abdominal pain. Evaluate for free abdominal air. Read by: Hernandez Wong MD Dictated Date/time: 02/20/18 14:47 Electronically Signed by: Hernandez Wong MD 02/20/18 14:49 FINAL REPORT COMPARISON: 01/28/2018 radiograph. FINDINGS: Cardiomediastinal silhouette is normal in size. Lungs are well- inflated and clear. Costophrenic angles are sharp. There is no free air beneath the diaphragm. Bowel gas pattern is nonspecific a nd nonobstructive. Surgical clips are seen in the right midabdomen. No suspicious bony finding. IMPRESSION: No acute findings in the chest or abdomen. No free abdominal air. SL: [id number] Abdomen Abdomen Study: Abdomen complete US 02/20/2018 8:32 AM CDT 02/20 - [facility] complete complete US /2017 - [facility] US d Read by: Dylan Gaytan MD Dictated Date/time: 02/20/18 09:20 Clinical Indication: Abdominal distension (gaseous) Electronically Signed by: Dylan Gaytan 02/20/18 09:22 FINAL REPORT Comparison: None TECHNIQUE: Grayscale and limited color sonographic evaluation of the abdomen was performed with standard technique. FINDINGS: LIVER: The visualized liver shows normal contour, size, and morphology with normal parenchymal echo texture. BILE DUCTS: The intrahepatic and extrahepatic bile ducts are not dilated with the common bile duct measuring 5 mm. The distal common bile duct is not well seen. GALLBLADDER: Single small 4 mm echogenic focus within the gallbladder. No wall thickening, pericholecystic fluid or sonographic Baker sign. PANCREAS: The visualized pancreas appears unremarkable.. SPLEEN: The spleen is unremarkable and measures 8.9 cm. KIDNEY: The right kidney measures 10.0 cm. The left kidney measures 12.3 cm. There is normal renal contour and morphology, with normal parenchymal echotexture. There is no hydronephrosis. AORTA AND INFERIOR VENA CAVA: Visualized portions appear unremarkable. ASCITES: There is no right abdominal ascites. IMPRESSION: 1. Single small gallstone. No sonographic evidence for acute cholecystitis.. SL: [id number] Abdomen 2 Abdomen 2 EXAM: XR ABDOMEN, 2 VIEW 01/28 - views DX views DX /2017 - [place] DATE: 01/28/2018 4:48 PM CDT Read by: Adolfo Acevedo MD Dictated Date/time: 01/28/18 20:21 Electronically Signed by: Adolfo Acevedo MD 01/28/18 20:21 FINAL REPORT INDICATION: Abdominal pain. COMPARISON: 12/12/2017. TECHNIQUE: AP supine and upright radiographs of the abdomen. FINDINGS: The bowel gas pattern is non-obstructive. No pathologic dilatation of bowel loops. There is no pneumatosis or mass effect. No radiopaque densities are noted. Multiple surgical clips project over within the right lower quadrant. No acute osseous abnormalities are identified. IMPRESSION: Nonobstructive bowel gas pattern. SL: [id number] CARDIAC Total CK 44 unit/L 12 - 191 12/22 MH ENZYMES [place] CHEM PANEL Lactic Acid 0.9 mMol/L 0.5 - 2.2 12/22 Lvl [place] CHEM PANEL B/C Ratio 13 6 - 25 12/22 [place] CHEM PANEL Globulin 4.1 g/dL 2.7 - 4.2 12/22 [place] CHEM PANEL AGAP 10.4 meq/L 10.0 - 12/22 MH 20.0 [place] CHEM PANEL A/G Ratio 1.0 0.7 - 1.6 12/22 [place] CHEM PANEL eGFR 110 12/22 Result Comment: The eGFR is calculated using the CKD-EPI formula. In most young, healthy individuals the eGFR will be >90 mL/ min/1.73m2. The eGFR declines with age. An eGFR of 60-89 may be normal in MH mL/min/1.7 /2018 some populations, particularly the elderly, for whom the CKD-EPI formula has not been extensively validated. Use of the eGFR is not recommended in the following populations: [address] Individuals with unstable creatinine concentrations, including patients and those with serious co-morbid conditions. Patients with extremes in muscle mass or diet. The data above are obtained from the National Kidney Disease Education Program (NKDEP) which additionally recommends that when the eGFR is used in patients with extremes of body mass index for purposes of drug dosing, the eGFR should be multiplied by the estimated BMI. CHEM PANEL Chloride Lvl 104 meq/L 95 - 109 12/22 [place] CHEM PANEL Sodium Lvl 137 meq/L 135 - 145 12/22 [place] CHEM PANEL BUN 9 mg/dL 7 - 22 12/22 [place] CHEM PANEL Creatinine 0.71 mg/dL 0.50 - 02 MH Lvl 1.40 [place] CHEM PANEL Potassium 3.4 meq/L 3.5 - 5.1 12/22 MH Lvl /2017 [place] CHEM PANEL Glucose Lvl 89 mg/dL 70 - 99 12/22 [place] CHEM PANEL AST 12 unit/L 0 - 37 12/22 [place] CHEM PANEL Bili Total 0.6 mg/dL 0.2 - 1.3 12/22 [place] CHEM PANEL Alk Phos 62 unit/L 39 - 136 12/22 [place] CHEM PANEL Calcium Lvl 8.8 mg/dL 8.5 - 10.5 12/22 [place] CHEM PANEL CO2 26 meq/L 24 - 32 12/22 [place] CHEM PANEL Albumin Lvl 4.2 g/dL 3.5 - 5.0 12/22 [place] CHEM PANEL Total 8.3 g/dL 6.4 - 8.4 12/22 [place] CHEM PANEL ALT 17 unit/L 0 - 65 12/22 [place] ENDOCRINOL S Preg Negative Negative 12/22 OG [place] *NA* (12/22/17 11:57 AM) HEMATOLOGY Hgb 14.8 g/dL 12.0 - 12/22 MH 16.0 [place] HEMATOLOGY RBC 4.89 M/CMM 4.20 - 12/22 MH 5.40 [place] HEMATOLOGY MCHC 34.3 g/dL 32.0 - 12/22 MH 36.0 [place] HEMATOLOGY WBC 8.5 K/CMM 3.7 - 10.4 12/22 [place] HEMATOLOGY Hct 43.1 % 36.0 - 12/22 MH 48.0 [place] HEMATOLOGY MCH 30.2 pg 27.0 - 12/22 MH 31.0 [place] HEMATOLOGY MCV 88.2 fL 80.0 - 12/22 MH 98.0 [place] HEMATOLOGY Platelet 306 K/CMM 133 - 450 12/22 [place] HEMATOLOGY RDW 12.6 % 11.5 - 12/22 MH 14.5 /2018 [place] HEMATOLOGY MPV 8.1 fL 7.4 - 10.4 12/22 [place] HEMATOLOGY Basophils 0.8 % 0.0 - 1.0 12/22 [place] HEMATOLOGY Segs-Bands # 5.3 K/CMM 1.5 - 8.1 12/22 [place] HEMATOLOGY Basophils # 0.1 K/CMM 0.0 - 0.2 12/22 [place] HEMATOLOGY Eosinophils 0.1 K/CMM 0.0 - 0.5 12/22 [place] HEMATOLOGY Eosinophils 1.6 % 0.0 - 4.0 12/22 [place] HEMATOLOGY Lymphocytes 2.4 K/CMM 1.0 - 5.5 12/22 [place] HEMATOLOGY Monocytes # 0.6 K/CMM 0.0 - 0.8 12/22 [place] HEMATOLOGY Monocytes 7.1 % 2.0 - 12.0 12/22 [place] HEMATOLOGY Lymphocytes 28.2 % 20.0 - 12/22 MH 40.0 [place] HEMATOLOGY Segs 62.3 % 45.0 - 12/22 MH 75.0 2018 [place] URINE AND UA <=1.0 0.1 - 1.0 12/22 STOOL Urobilinogen mg/dL [place] URINE AND UA Bacteria Moderate None Seen 12/22 [place] /HPF /HPF /2017 [place] URINE AND UA RBC 1 /HPF 0 - 2 12/22 [place] URINE AND UA Mucus Many /LPF None Seen 12/22 STOOL /LPF /2017 [place] URINE AND UA Leuk Est Moderate Negative 12/22 [place] *ABN* (12/22/17 11:57 AM) URINE AND UA Sq Epi Many /LPF Few /LPF 12/22 STOOL [place] URINE AND UA WBC 7 /HPF 0 - 5 12/22 [place] URINE AND UA Turbidity Marked Clear 12/22 [place] *ABN* (12/22/17 11:57 AM) URINE AND UA Color Lizzie Yellow 12/22 [place] *ABN* (12/22/17 11:57 AM) URINE AND UA pH 5.0 5.0 - 8.0 12/22 STOOL [place] URINE AND UA Protein 30 mg/dL Negative 12/22 STOOL mg/dL [place] URINE AND UA Spec Grav 1.021 <=1.030 12/22 [place] URINE AND UA Glucose Negative Negative 12/22 STO[facility] mg/dL mg/dL [place] URINE AND UA Ketones 20 mg/dL Negative 12/22 STOOL mg/dL [place] URINE AND UA Bili Negative Negative 12/22 STOOL [place] *NA* (12/22/17 11:57 AM) URINE AND UA Nitrite Negative Negative 12/22 STOOL [place] (12/22/17 11:57 AM) URINE AND UA Blood Negative Negative 12/22 [place] (12/22/17 11:57 AM) VIRAL - Influ A Negative Negative 12/22 SEROLOGY [place] (12/22/17 11:57 AM) VIRAL - Influ B Negative Negative 12/22 SEROLOGY [place] (12/22/17 11:57 AM) Stomach Stomach GASTRIC EMPTYING STUDY: 11/25 [facility] emptying emptying [place] [facility] HISTORY: Persistent nausea and vomiting, bloating, oral intake intolerance , right upper quadrant abdominal pain Read by: Jm Arambula MD Dictated Date/time: 11/25/17 14:13 Electronically Signed by: Jm Arambula MD 11/25/17 14:17 FINAL REPORT COMPARISON: CT abdomen/pelvis dated 11/20/2017 TECHNIQUE: Gastric emptying study is performed using 1.1 mCi of technetium 99m sulfur colloid mixed with oatmeal administered orally. 237 minutes of static imaging was performed at 5 minute intervals in the frontal plane - starting 5 minutes after radiotracer administration. The data was used for gastric emptying calculation/extrapolation. FINDINGS: There is prompt activity identified within the stomach and prompt excretion into the small bowel thereafter. The time to peak is 0 minutes. The T half-life is 77 minutes (normal for solids < 90 minutes). The slope of the excretion curve is within normal limits. % excretion at approximately 49 minutes: 32% % excretion at approximately 94 minutes: 63% % excretion at approximately 114 minutes: 67% % excretion at approximately 146 minutes: 72% % excretion at approximately 173 minutes: 83% % excretion at approximately 237 minutes: 91% IMPRESSION: Normal gastric emptying study. Normal values: % excretion at approximately 60 minutes: 10-70 % % excretion at approximately 120 minutes: greater than 40 % % excretion at approximately 180 minutes: greater than 70 % % excretion at approximately 240 minutes: greater than 90 % SL: AGINZEL-PC URINE AND UA <=1.0 0.1 - 1.0 11/25 STOOL Urobilinogen mg/dL [facility] URINE AND UA Color Red 11/25 [facility] URINE AND UA WBC 2 /HPF 0 - 5 11/25 [facility] URINE AND UA RBC 35 /HPF 0 - 2 11/25 STOOL [facility] URINE AND UA Sq Epi Many /LPF Few /LPF 11/25 [facility] URINE AND UA Mucus Few /LPF None Seen 11/25 STOOL /LPF [facility] URINE AND UA Bacteria Few /HPF None Seen 11/25 STOOL /HPF [facility] URINE AND UA Hyph Occasional None Seen 11/25 STOOL [facility] *ABN* (11/24/17 11:05 PM) URINE AND UA Turbidity Marked Clear 11/25 [facility] *ABN* (11/24/17 11:05 PM) URINE AND UA Spec Grav 1.008 <=1.030 11/25 [facility] URINE AND UA Nitrite Negative Negative 11/25 [facility] (11/24/17 11:05 PM) URINE AND UA Leuk Est Moderate Negative 11/25 [facility] *ABN* (11/24/17 11:05 PM) URINE AND UA Blood Large Negative 11/25 [facility] *ABN* (11/24/17 11:05 PM) URINE AND UA Bili Negative Negative 11/25 [facility] *NA* (11/24/17 11:05 PM) URINE AND UA Ketones Negative Negative 11/25 [facility]OOL mg/dL mg/dL URINE AND UA Glucose Negative Negative 11/25 [facility] mg/dL mg/dL [facility] URINE AND UA pH 7.0 5.0 - 8.0 11/25 [facility] URINE AND UA Protein 30 mg/dL Negative 11/25 STOOL mg/dL [facility] MOLECULAR C difficile Negative Negative 11/24 DIAGNOSTIC DNA [facility] (11/24/17 4:42 PM) Gallbladde Gallbladder Patient Name: SHALOM RIGGS 11/23 - r scan scan [facility] 1980; Age: 37 years y/o Female [facility] MR: [id number] Read by: Maninder Soto MD Dictated Date/time: 11/23/17 15:30 Electronically Signed by: Maninder Soto MD 11/23/17 15:33 FINAL REPORT Study: [facility] 11/23/2017 8:56 AM [employer] Ordering Physician: Clinical Indication: - Abdominal pain. Comparison: Abdomen ultrasound 11/22/2017 Nuclear gallbladder scan. Intravenous injection of 6 mCi technetium 99m Choletec radiotracer via left forearm IV site. FINDINGS: Scintigraphic images demonstrate prompt visualization of activity in the gallbladder by 20 minutes, and within the duodenum by 45 minutes post infusion. IMPRESSION: No evidence for cystic duct obstruction or acute cholecystitis. SL: [id number] Abdomen Abdomen Patient Name: SHALOM RIGGS 11/22 - complete complete US - [facility] US : 1980; Age: 37 years y/o Female MR: [id number] Read by: Maninder Soot MD Dictated Date/time: 11/22/17 15:30 Electronically Signed by: Maninder Soto MD 11/22/17 15:34 FINAL REPORT Study: Abdomen complete US 11/22/2017 10:16 AM [employer] Ordering Physician: Johanne Hensley MD Clinical Indication: - nause aemesis; Comparison: CT abdomen 11/20/2017 TECHNIQUE: Grayscale and limited color sonographic evaluation of the abdomen was performed with standard technique. FINDINGS: LIVER: The visualized liver shows normal contour, size, and morphology with normal parenchymal echo texture. BILE DUCTS: The intrahepatic and extrahepatic bile ducts are not dilated with the common bile duct measuring 4 mm. The distal common bile duct is not well seen. GALLBLADDER: Gallbladder wall thickening up to 7 mm. No definite gallstone is seen. PANCREAS: The pancreas is poorly seen secondary to overlying bowel gas, body habitus. SPLEEN: The spleen is unremarkable and measures 9.4 x 4.7 x 6 cm. KIDNEY: The right kidney measures 9.8 x 4.5 x 5.5 cm. The left kidney measures 13.4 x 5.5 x 5.7 cm. No pelvocaliectasis, nephrolithiasis or renal mass lesion identified bilaterally. AORTA AND INFERIOR VENA CAVA: Visualized portions appear unremarkable. ASCITES: There is no abdominal ascites. IMPRESSION: Distended gallbladder, with the gallbladder wall thickening. No definite gallstone is seen. No biliary ductal dilatation. Correlate clinically for cholecystitis. Nuclear gallbladder scan may be helpful for further characterization, if deemed clinically relevant. SL: [id number] HEMATOLOGY Sed Rate 3 mm/h 0 - 20 11/21 [place] IMMUNOLOGY C-REACTIVE null <=2.9 mg/L 11/21 [place] CHEM PANEL Lactic Acid 0.5 mMol/L 0.5 - 2.2 11/21 Lvl [facility] CHEM PANEL eGFR 120 11/21 Result Comment: The eGFR is calculated using the CKD-EPI formula. In most young, healthy individuals the eGFR will be >90 mL/ min/1.73m2. The eGFR declines with age. An eGFR of 60-89 may be normal in mL/min/1.7 some populations, particularly the elderly, for whom the CKD-EPI formula has not been extensively validated. Use of the eGFR is not recommended in the following populations: [place] 3m2 Individuals with unstable creatinine concentrations, including patients and those with serious co-morbid conditions. Patients with extremes in muscle mass or diet. The data above are obtained from the National Kidney Disease Education Program (NKDEP) which additionally recommends that when the eGFR is used in patients with extremes of body mass index for purposes of drug dosing, the eGFR should be multiplied by the estimated BMI. CHEM PANEL AST 7 unit/L 0 - 37 11/21 [facility] CHEM PANEL ALT 17 unit/L 0 - 65 11/21 [place] CHEM PANEL Albumin Lvl 3.5 g/dL 3.5 - 5.0 11/21 [place] CHEM PANEL Bili Total 0.2 mg/dL 0.2 - 1.3 11/21 [place] CHEM PANEL Alk Phos 47 unit/L 39 - 136 11/21 [place] CHEM PANEL Calcium Lvl 8.3 mg/dL 8.5 - 10.5 11/21 [place] CHEM PANEL Chloride Lvl 105 meq/L 95 - 109 11/21 [place] CHEM PANEL CO2 27 meq/L 24 - 32 11/21 [place] CHEM PANEL Potassium 3.6 meq/L 3.5 - 5.1 11/21 MH Lvl /2017 [place] CHEM PANEL Creatinine 0.58 mg/dL 0.50 - 11/21 MH Lvl 1.40 [place] CHEM PANEL Sodium Lvl 138 meq/L 135 - 145 11/21 [place] CHEM PANEL Total 6.4 g/dL 6.4 - 8.4 11/21 [place] CHEM PANEL BUN 10 mg/dL 7 - 22 11/21 [place] CHEM PANEL Glucose Lvl 91 mg/dL 70 - 99 11/21 [place] CHEM PANEL A/G Ratio 1.2 0.7 - 1.6 11/21 [place] CHEM PANEL Globulin 2.9 g/dL 2.7 - 4.2 11/21 [place] CHEM PANEL B/C Ratio 17 6 - 25 11/21 [place] CHEM PANEL AGAP 9.6 meq/L 10.0 - 11/21 20.0 [facility] HEMATOLOGY Hgb 12.8 g/dL 12.0 - 11/21 16.0 [facility] HEMATOLOGY RBC 4.15 M/CMM 4.20 - 11/21 MH 5.40 [facility] HEMATOLOGY WBC 8.2 K/CMM 3.7 - 10.4 11/21 [facility] HEMATOLOGY MCH 30.9 pg 27.0 - 11/21 31.0 [facility] HEMATOLOGY Hct 37.9 % 36.0 - 11/21 48.0 [facility] HEMATOLOGY MCHC 33.8 g/dL 32.0 - 11/21 36.0 [facility] HEMATOLOGY MCV 91.4 fL 80.0 - 11/21 98.0 [facility] HEMATOLOGY MPV 8.4 fL 7.4 - 10.4 11/21 [facility] HEMATOLOGY Platelet 247 K/CMM 133 - 450 11/21 [facility] HEMATOLOGY RDW 12.9 % 11.5 - 11/21 MH 14.5 [facility] HEMATOLOGY Segs-Bands # 4.6 K/CMM 1.5 - 8.1 11/21 [facility] HEMATOLOGY Eosinophils 3.8 % 0.0 - 4.0 11/21 [facility] HEMATOLOGY Basophils 0.8 % 0.0 - 1.0 11/21 [facility] HEMATOLOGY Basophils # 0.1 K/CMM 0.0 - 0.2 11/21 [facility] HEMATOLOGY Lymphocytes 2.6 K/CMM 1.0 - 5.5 11/21 # /2018 [facility] HEMATOLOGY Eosinophils 0.3 K/CMM 0.0 - 0.5 11/21 # /2018 [facility] HEMATOLOGY Monocytes # 0.6 K/CMM 0.0 - 0.8 11/21 [facility] HEMATOLOGY Segs 55.7 % 45.0 - 11/21 75.0 /2017 [facility] HEMATOLOGY Monocytes 7.6 % 2.0 - 12.0 11/21 [facility] [facility] HEMATOLOGY Lymphocytes 32.1 % 20.0 - 11/21 40.0 /2017 [facility] URINE AND UA <=1.0 0.1 - 1.0 11/20 STOOL Urobilinogen mg/dL [facility] URINE AND UA Color Ltyellow 11/20 [facility] URINE AND UA WBC 3 /HPF 0 - 5 11/20 [facility] URINE AND UA RBC 1 /HPF 0 - 2 11/20 [facility] URINE AND UA Sq Epi Many /LPF Few /LPF 11/20 [facility] URINE AND UA Leuk Est Trace Negative 11/20 [facility] *ABN* (11/20/17 3:06 PM) URINE AND UA Mucus Few /LPF None Seen 11/20 STOOL /LPF [facility] URINE AND UA Bacteria Occasional None Seen 11/20 STOOL /HPF /HPF /2017 [facility] URINE AND UA pH 6.0 5.0 - 8.0 11/20 [facility] URINE AND UA Protein Negative Negative 11/20 STOOL mg/dL mg/dL [facility] URINE AND UA Glucose Negative Negative 11/20 STOOL mg/dL mg/dL [facility] URINE AND UA Blood Negative Negative 11/20 (11/20/17 3:06 PM) URINE AND UA Ketones Negative Negative 11/20 STOOL mg/dL mg/dL [facility] URINE AND UA Bili Negative Negative 11/20 [facility] *NA* (11/20/17 3:06 PM) URINE AND UA Nitrite Negative Negative 11/20 (11/20/17 3:06 PM) URINE AND UA Turbidity Slight Clear 11/20 STOOL [facility] *ABN* (11/20/17 3:06 PM) URINE AND UA Spec Grav 1.017 <=1.030 11/20 [facility] URINE CHEM U Preg Negative Negative 11/20 [facility] (11/20/17 3:06 PM) Pelvis w Pelvis w ULTRASOUND OF THE PELVIS TRANSABDOMINAL AND TRANSVAGINAL. 11/20 - Transvag Transvag - [facility] and Pelvis Pelvis Doppler US Doppler US Clinical Indication: - ro torsion Read by: Eric Bob DO Dictated Date/time: 11/20/17 19:16 Electronically Signed by: Eric Bob DO 11/20/17 19:29 FINAL REPORT COMPARISON: 01/24/2017 FINDINGS: TRANSABDOMINAL PELVIC ULTRASOUND: Transabdominal study was performed. Uterus: The uterus measures 91x 45x 45 mm. Uterine echogenicity and configuration is normal. There is no uterine mass. ENDOVAGINAL ULTRASOUND: Endovaginal exam was performed in order to better evaluate the uterus and ovaries. Endometrial complex/stripe: The endometrial stripe measures mm. There is no uterine or endometrial mass. Right ovary: The right ovary measures 22x 20x 14 mm and appears normal. Left ovary: The left ovary measures 31x 23x 22 mm and appears normal. There is no adnexal mass or free fluid in the cul-de-sac. Continuous Doppler and color flow imaging of the ovaries was performed i n order to exclude ovarian torsion. There is normal blood flow to both ovaries. Follicles are noted. IMPRESSION: 1. Unremarkable ultrasound of the pelvis. SL: SROSENBLUM-PC CHEM PANEL B/C Ratio 19 6 - 25 11/20 [facility] CHEM PANEL Globulin 3.7 g/dL 2.7 - 4.2 11/20 [facility] CHEM PANEL AGAP 10.3 meq/L 10.0 - 11/20 20.0 [facility] CHEM PANEL A/G Ratio 1.0 0.7 - 1.6 11/20 [facility] CHEM PANEL eGFR 117 11/20 Result Comment: The eGFR is calculated using the CKD-EPI formula. In most young, healthy individuals the eGFR will be >90 mL/ min/1.73m2. The eGFR declines with age. An eGFR of 60-89 may be normal in mL/min/1.7 some populations, particularly the elderly, for whom the CKD-EPI formula has not been extensively validated. Use of the eGFR is not recommended in the following populations: [facility] 3m2 Individuals with unstable creatinine concentrations, including patients and those with serious co-morbid conditions. Patients with extremes in muscle mass or diet. The data above are obtained from the National Kidney Disease Education Program (NKDEP) which additionally recommends that when the eGFR is used in patients with extremes of body mass index for purposes of drug dosing, the eGFR should be multiplied by the estimated BMI. CHEM PANEL Bili Total 0.2 mg/dL 0.2 - 1.3 11/20 [facility] CHEM PANEL Alk Phos 51 unit/L 39 - 136 11/20 [facility] CHEM PANEL ALT 17 unit/L 0 - 65 11/20 [facility] CHEM PANEL AST 11 unit/L 0 - 37 11/20 [facility] CHEM PANEL Albumin Lvl 3.7 g/dL 3.5 - 5.0 11/20 [facility] CHEM PANEL Chloride Lvl 109 meq/L 95 - 109 11/20 [facility] CHEM PANEL Calcium Lvl 8.5 mg/dL 8.5 - 10.5 11/20 [facility] CHEM PANEL CO2 27 meq/L 24 - 32 11/20 [facility] CHEM PANEL Potassium 4.3 meq/L 3.5 - 5.1 11/20 Lvl [facility] CHEM PANEL Glucose Lvl 88 mg/dL 70 - 99 11/20 [facility] CHEM PANEL BUN 12 mg/dL 7 - 22 11/20 [facility] CHEM PANEL Total 7.4 g/dL 6.4 - 8.4 11/20 [facility] CHEM PANEL Sodium Lvl 142 meq/L 135 - 145 11/20 [facility] CHEM PANEL Creatinine 0.62 mg/dL 0.50 - 11/20 Lvl 1.40 [facility] HEMATOLOGY Lymphocytes 30.8 % 20.0 - 11/20 40.0 [facility] HEMATOLOGY Segs 56.2 % 45.0 - 11/20 75.0 [facility] HEMATOLOGY Eosinophils 4.3 % 0.0 - 4.0 11/20 [facility] HEMATOLOGY Monocytes 7.5 % 2.0 - 12.0 11/20 [facility] HEMATOLOGY Segs-Bands # 4.4 K/CMM 1.5 - 8.1 11/20 [facility] HEMATOLOGY Basophils 1.2 % 0.0 - 1.0 11/20 [facility] HEMATOLOGY Lymphocytes 2.4 K/CMM 1.0 - 5.5 11/20 # /2017 [facility] HEMATOLOGY Monocytes # 0.6 K/CMM 0.0 - 0.8 11/20 [facility] HEMATOLOGY Eosinophils 0.3 K/CMM 0.0 - 0.5 11/20 # /2017 [facility] HEMATOLOGY Basophils # 0.1 K/CMM 0.0 - 0.2 11/[address] [facility] WBC 7.8 K/CMM 3.7 - 10.4 11/20 [facility] HEMATOLOGY RBC 4.38 M/CMM 4.20 - 11/[address] [facility] Hgb 13.6 g/dL 12.0 - 11/[address] [facility] MCV 93.1 fL 80.0 - 11/20 98.0 [facility] HEMATOLOGY Hct 40.8 % 36.0 - 11/[address] [facility] MCH 31.1 pg 27.0 - 11/[address] [facility] MCHC 33.5 g/dL 32.0 - 11/[address] [facility] Platelet 273 K/CMM 133 - 450 11/[address] [facility] RDW 12.9 % 11.5 - 11/[address] [facility] MPV 8.4 fL 7.4 - 10.4 11/20 [facility] Abdomen/Pe Abdomen/Pelv Clinical Indication: Severe right and left lower quadrant pain. 11/20 - lvis w IV is w IV /2017 - [facility] contrast contrast CT Comparison: July 05, 2017 CT Read by: Tania Granger MD Dictated Date/time: 11/20/17 18:01 TECHNIQUE: Helical imaging was performed after injection of IV contrast, from the diaphragm through the symphysis with multiplanar reformations obtained. Electronically Signed by: Tania Granger MD 11/20/17 18:03 FINAL REPORT IV CONTRAST: 100 mL of Omnipaque GI CONTRAST: No oral contrast was administered. DLP: 1132.15 mGy-cm FINDINGS: LOWER CHEST: There is atelectasis in the left lingula. There is a deflated right breast implant and an intact left breast implant. LIVER: The liver parenchyma is normal in appearance without masses or intrahepatic biliary ductal dilatation. The portal vein is normal in caliber. BILIARY TREE: The common bile duct is normal in caliber without evidence of filling defects. GALLBLADDER: The gallbladder is unremarkable, there is no evidence of cholelithiasis or cholecystitis. PANCREAS: The pancreas is unremarkable. The pancreatic duct is normal in caliber. SPLEEN: The spleen is normal in size and there are no parenchymal abnormalities. ADRENALS: The right adrenal gland is unremarkable. The left adrenal gland is unremarkable. KIDNEYS: The kidneys demonstrates normal contrast enhancement. There are no masses. There is no evidence of renal or ureteral calculi. There is no evidence of hydronephrosis. BOWEL: The visualized portion of the esophagus is unremarkable. The stomach is unremarkable. The small bowel is normal in caliber and there is no evidence of masses or obstruction. The colon is uziel l in caliber, there are no masses, there is no evidence of diverticulosis or diverticulitis. APPENDIX: The appendix is not seen suggesting prior appendectomy. PELVIS: There are no pelvic masses. The urinary bladder is unremarkable. The uterus and ovaries are unremarkable. PERITONEUM: There is no evidence for free intraperitoneal fluid or air. SOFT TISSUES: The soft tissues are unremarkable. There is no evidence of masses or hernias. LYMPH NODES: There is no evidence of mesenteric, retroperitoneal, or inguinal lymphadenopathy. VASCULATURE: The abdominal aorta is normal in caliber. The branches of the abdominal aorta are widely patent. MUSCULOSKELETAL: The visualized bony skeleton is unremarkable. IMPRESSION: 1. No acute intra-abdominal findings. SL: [id number] ELECTROLYT AGAP 9.1 meq/L 10.0 - 07/05 ES 20.0 /2017 [facility] ELECTROLYT eGFR 114 07/05 Result Comment: The eGFR is calculated using the CKD-EPI formula. In most young, healthy individuals the eGFR will be >90 mL/ min/1.73m2. The eGFR declines with age. An eGFR of 60-89 may be normal in ES mL/min/1. /2017 some populations, particularly the elderly, for whom the CKD-EPI formula has not been extensively validated. Use of the eGFR is not recommended in the following populations: [facility] 3m2 Individuals with unstable creatinine concentrations, including patients and those with serious co-morbid conditions. Patients with extremes in muscle mass or diet. The data above are obtained from the National Kidney Disease Education Program (NKDEP) which additionally recommends that when the eGFR is used in patients with extremes of body mass index for purposes of drug dosing, the eGFR should be multiplied by the estimated BMI. ELECTROLYT Creatinine 0.69 mg/dL 0.50 - 07/05 ES Lvl 1.40 [facility] ELECTROLYT Glucose Lvl 121 mg/dL 70 - 99 07/05 [facility] ELECTROLYT BUN 10 mg/dL 7 - 22 07/05 [facility] ELECTROLYT Calcium Lvl 8.1 mg/dL 8.5 - 10.5 07/05 [facility] ELECTROLYT Potassium 3.1 meq/L 3.5 - 5.1 07/05 ES Lvl [facility] ELECTROLYT Chloride Lvl 103 meq/L 95 - 109 07/05 [facility] ELECTROLYT Sodium Lvl 138 meq/L 135 - 145 07/05 [facility] ELECTROLYT CO2 29 meq/L 24 - 32 07/05 ES [facility] HEMATOLOGY Lymphocytes 2.7 K/CMM 1.0 - 5.5 07/05 MH # /2016 [facility] HEMATOLOGY Basophils # 0.1 K/CMM 0.0 - 0.2 07/05 [facility] HEMATOLOGY Monocytes # 0.7 K/CMM 0.0 - 0.8 07/05 [facility] HEMATOLOGY Eosinophils 0.3 K/CMM 0.0 - 0.5 07/05 [facility] HEMATOLOGY Lymphocytes 33.9 % 20.0 - 07/05 40.0 [facility] HEMATOLOGY Monocytes 9.0 % 2.0 - 12.0 07/05 [facility] HEMATOLOGY Eosinophils 3.5 % 0.0 - 4.0 07/05 [facility] HEMATOLOGY Basophils 0.7 % 0.0 - 1.0 07/05 [facility] HEMATOLOGY Segs-Bands # 4.2 K/CMM 1.5 - 8.1 07/05 [facility] HEMATOLOGY Segs 52.9 % 45.0 - 07/05 75.0 [facility] HEMATOLOGY Hct 38.4 % 36.0 - 07/05 48.0 [facility] HEMATOLOGY Hgb 13.1 g/dL 12.0 - 07/05 16.0 /[address] [facility] RBC 4.18 M/CMM 4.20 - 07/05 MH 5.40 /[address] [facility] WBC 8.0 K/CMM 3.7 - 10.4 07/[address] [facility] MCV 91.8 fL 80.0 - 07/[address] [facility] Platelet 239 K/CMM 133 - 450 07/[address] [facility] MPV 8.1 fL 7.4 - 10.4 07/[address] [facility] RDW 12.2 % 11.5 - 07/[address] [facility] MCHC 34.1 g/dL 32.0 - 07/[address] [facility] MCH 31.4 pg 27.0 - 07/05 31.0 [facility] Abdomen/Pe Abdomen/Pelv CT ABDOMEN AND PELVIS WITH CONTRAST 07/05 [facility] lvis w IV is w IV /2016 - [facility] contrast contrast CT CT INDICATION: Air in bladder, evaluate for fistula involving the bladder, 100 cc omni, ct dlp: 1895.50 mGy-cm - looking for fistula, with PO contrast Read by: Jose F López MD Dictated Date/time: 07/05/17 02:42 Electronically Signed by: Jose F López MD 07/05/17 02:53 FINAL REPORT COMPARISON: CT abdomen/pelvis without contrast 07/04/2017 DISCUSSION: ABDOMEN: There is no consolidation of the visible lung bases. Note is made of bilateral breast implants. The right implant is ruptured and collapsed. The kidneys appear normal. The medullary nephrocalcinosis and punctate renal calculi, visible in the noncontrast study, are obscured by renal contrast enhancement. The liver, spleen, pancreas, gallbladder, and adrenal glands appear normal. The stomach and bowel l oops are unremarkable. The appendix is not identified. A surgical clip is seen adjacent to the cecum, suggesting previous appendectomy. No free fluid or abnormal fluid collections are seen. No abdominal lymphadenopathy is identified. The abdominal aorta is patent and normal in caliber. PELVIS: There is no interval change in the punctate focus of air at the nondependent aspect of the bladder. The bladder is otherwise unremarkable. There is no obvious fistulous communication involving the bladd er. There are no findings that suggest inflammation of the abdomen or pelvis. The uterus and adnexa are unremarkable. No pelvic mass or lymphadenopathy are identified. BONES: No acute bony abnormalities are seen. IMPRESSION: 1. Stable nonspecific punctate air focus at the nondependent aspect of the bladder lumen, of indeterminate etiology. There is no visible fistulous communication involving the bladder. There are no findi ngs to suggest inflammation of the abdomen or pelvis. 2. No acute abdominal or pelvic abnormalities are visualized. The known medullary nephrocalcinosis and nonobstructive punctate renal calculi are not visible in this postcontrast study. SL:16 URINE AND UA <=1.0 0.1 - 1.0 07/05 STOOL Urobilinogen mg/dL [facility] URINE AND UA Sq Epi Occasional Few /LPF 07/05 STOOL /LPF [facility] URINE AND UA WBC 9 /HPF 0 - 5 07/05 [facility] URINE AND UA Nitrite Negative Negative 07/05 [facility] (07/04/17 8:13 PM) URINE AND UA Leuk Est Trace Negative 07/05 [facility] *ABN* (07/04/17 8:13 PM) URINE AND UA Bili Negative Negative 07/05 [facility] *NA* (07/04/17 8:13 PM) URINE AND UA Blood Negative Negative 07/05 (07/04/17 8:13 PM) URINE AND UA Ketones Trace Negative 07/05 [facility] mg/dL mg/dL [facility] URINE AND UA Mucus Few /LPF None Seen 07/05 STOOL /LPF URINE AND UA RBC 4 /HPF 0 - 2 07/05 [facility] URINE AND UA Bacteria Occasional None Seen 07/05 STOOL /HPF /HPF /2016 [facility] URINE AND UA pH 5.0 5.0 - 8.0 07/05 URINE AND UA Turbidity Clear Clear 07/05 [facility] (07/04/17 8:13 PM) URINE AND UA Spec Grav 1.029 <=1.030 07/05 URINE AND UA Color Yellow Yellow 07/05 [facility] *NA* (07/04/17 8:13 PM) URINE AND UA Glucose Negative Negative 07/05 STOOL mg/dL mg/dL [facility] URINE AND UA Protein 30 mg/dL Negative 07/05 STOOL mg/dL [facility] URINE CHEM U Preg Negative Negative 07/05 [facility] (07/04/17 8:13 PM) CHEM PANEL eGFR 100 07/05 Result Comment: The eGFR is calculated using the CKD-EPI formula. In most young, healthy individuals the eGFR will be >90 mL/ min/1.73m2. The eGFR declines with age. An eGFR of 60-89 may be normal in mL/min/1.7 /2016 some populations, particularly the elderly, for whom the CKD-EPI formula has not been extensively validated. Use of the eGFR is not recommended in the following populations: [facility] 3m2 Individuals with unstable creatinine concentrations, including patients and those with serious co-morbid conditions. Patients with extremes in muscle mass or diet. The data above are obtained from the National Kidney Disease Education Program (NKDEP) which additionally recommends that when the eGFR is used in patients with extremes of body mass index for purposes of drug dosing, the eGFR should be multiplied by the estimated BMI. CHEM PANEL Chloride Lvl 104 meq/L 95 - 109 07/05 [facility] CHEM PANEL Potassium 3.6 meq/L 3.5 - 5.1 07/05 Lvl [facility] CHEM PANEL Creatinine 0.78 mg/dL 0.50 - 07/05 Lvl 1.40 [facility] CHEM PANEL Sodium Lvl 139 meq/L 135 - 145 07/05 [facility] CHEM PANEL BUN 10 mg/dL 7 - 22 07/05 [facility] CHEM PANEL Glucose Lvl 96 mg/dL 70 - 99 07/05 [facility] CHEM PANEL ALT 20 unit/L 0 - 65 07/05 [facility] CHEM PANEL AST 12 unit/L 0 - 37 07/05 [facility] CHEM PANEL Total 7.9 g/dL 6.4 - 8.4 07/05 [facility] CHEM PANEL Albumin Lvl 4.0 g/dL 3.5 - 5.0 07/05 [facility] CHEM PANEL CO2 30 meq/L 24 - 32 07/05 [facility] CHEM PANEL Calcium Lvl 9.5 mg/dL 8.5 - 10.5 07/05 [facility] CHEM PANEL Bili Total 0.3 mg/dL 0.2 - 1.3 07/05 [facility] CHEM PANEL Alk Phos 62 unit/L 39 - 136 07/05 [facility] CHEM PANEL A/G Ratio 1.0 0.7 - 1.6 07/05 [facility] CHEM PANEL Globulin 3.9 g/dL 2.7 - 4.2 07/05 [facility] CHEM PANEL B/C Ratio 13 6 - 25 07/05 [facility] CHEM PANEL AGAP 8.6 meq/L 10.0 - 07/05 MH 20.0 [facility] HEMATOLOGY Hgb 15.4 g/dL 12.0 - 07/05 MH 16.0 [facility] HEMATOLOGY MCHC 34.2 g/dL 32.0 - 07/05 MH 36.0 [facility] HEMATOLOGY MCH 31.5 pg 27.0 - 07/05 MH 31.0 [facility] HEMATOLOGY MCV 92.0 fL 80.0 - 07/05 MH 98.0 [facility] HEMATOLOGY Hct 45.2 % 36.0 - 07/05 MH 48.0 [facility] HEMATOLOGY MPV 8.6 fL 7.4 - 10.4 07/05 [facility] HEMATOLOGY Platelet 300 K/CMM 133 - 450 07/05 [facility] HEMATOLOGY RDW 12.3 % 11.5 - 07/05 MH 14.5 [facility] HEMATOLOGY RBC 4.91 M/CMM 4.20 - 07/05 MH 5.40 /2016 [facility] HEMATOLOGY WBC 10.2 K/CMM 3.7 - 10.4 07/05 [facility] HEMATOLOGY Lymphocytes 3.1 K/CMM 1.0 - 5.5 07/05 MH /2016 [facility] HEMATOLOGY Segs-Bands # 6.0 K/CMM 1.5 - 8.1 07/05 [facility] HEMATOLOGY Eosinophils 0.2 K/CMM 0.0 - 0.5 07/05 MH # /2016 [facility] HEMATOLOGY Monocytes # 0.8 K/CMM 0.0 - 0.8 07/05 [facility] HEMATOLOGY Basophils # 0.1 K/CMM 0.0 - 0.2 07/05 [facility] HEMATOLOGY Basophils 0.7 % 0.0 - 1.0 07/05 [facility] HEMATOLOGY Eosinophils 2.4 % 0.0 - 4.0 07/05 [facility] HEMATOLOGY Segs 58.7 % 45.0 - 07/05 MH 75.0 [facility] HEMATOLOGY Monocytes 7.8 % 2.0 - 12.0 07/05 /2016 [facility] HEMATOLOGY Lymphocytes 30.4 % 20.0 - 07/05 40.0 [facility] Abdomen/Pe Abdomen/Pelv Patient Name: SHALOM RIGGS 07/04 - lvis wo IV is IV - [facility] contrast contrast CT : 1980; Age: 36 years y/o Female CT MR: [id number] Read by: Emeka Rivas MD Dictated Date/time: 07/04/17 21:13 Electronically Signed by: Emeka Rivas MD 07/04/17 21:26 FINAL REPORT Study: Abdomen/Pelvis wo IV contrast CT 07/04/2017 7:41 PM CDT Ordering Physician: Luis Mancera Comparison: 03/27/2017 CT Radiation Dose DLP mGy-cm Clinical Indication: Back pain, ct dlp: 113.92 mGy-cm - kidney stone protocol; Multiple computerized axial tomograms of the abdomen and pelvis were obtained without contrast utilizing renal stone protocol. 2-D sagittal and coronal reformation reconstruction images were obtained. T he use of this protocol may excluded a portion of the upper abdominal viscera. Collapsed right breast prosthesis with "linguini sign". The left breast prosthesis is intact. Visualized lung bases are clear. The right colon is redundant with the cecum and ascending colon e xtending into the pelvis across the midline associated with mild to moderate constipation. There is mild constipation present at the transverse colon. The gallbladder is unremarkable. Incomplete rotatio n of the kidneys is noted bilaterally which is developmental. Subtle increased density of the medullary pyramids is noted bilaterally which could represent fine nephrocalcinosis and/or hyper concentrate d urine. Several 0.5 mm nonobstructing calculi are noted at the mid and inferior pole of the right kidney. A 2 x 1 mm nonobstructing calculus is noted at the mid left kidney. A dorsal cortical defect is noted at the mid right kidney consistent with scarring. No abdominal ureteral calculus. The visualized upper abdominal viscera are otherwise unremarkable. Findings at the ventral abdominal wall suggest slick of abdominoplasty. No adenopathy, abdominal mass or free fluid. Vascular clips are present at the upper pelvis ventral to the right psoas muscle. The dome of the urinary bladder is effaced by anteflexed uterus. A single punctate gas collection is noted at the ventral left paramedian urinary bladder lumen. No bladder calculus. Uterus and adnexa ar e otherwise unremarkable. No pelvic mass, adenopathy or free fluid is noted. Periarticular sclerosis is noted at the SI joints bilaterally. Lower lumbar facet degenerative arthrosis is noted. The appendix is not visualized. IMPRESSION: 1. Tiny nonobstructing renal calculi are noted bilaterally. No ureteral or bladder calculi. 2.A single punctate gas collection is noted at the ventral left paramedian urinary bladder lumen. Was the patient catheterized? If not iatrogenic, differential considerations would include fistula or infection. 3.Subtle increased density of the medullary pyramids is noted bilaterally which could represent fine nephrocalcinosis and/or hyper concentrated urine. 4.Collapsed right breast prosthesis with "linguini sign". 5. Status post abdominoplasty. 6.Vascular clips are present at the upper pelvis ventral to the right psoas muscle. SL: [id number] CHEM PANEL Lipase Lvl 193 unit/L 73 - 393 03/27 [facility] CHEM PANEL A/G Ratio 1.2 0.7 - 1.6 03/27 [facility] CHEM PANEL Globulin 3.4 g/dL 2.7 - 4.2 03/27 [facility] CHEM PANEL AGAP 13.5 meq/L 10.0 - 03/27 MH 20.0 /2016 [facility] CHEM PANEL B/C Ratio 23 6 - 25 03/27 [facility] CHEM PANEL Chloride Lvl 108 meq/L 95 - 109 03/27 [facility] CHEM PANEL Potassium 3.5 meq/L 3.5 - 5.1 03/27 MH Lvl [facility] CHEM PANEL Sodium Lvl 141 meq/L 135 - 145 03/27 [facility] CHEM PANEL CO2 23 meq/L 24 - 32 03/27 [facility] CHEM PANEL Bili Total 0.7 mg/dL 0.2 - 1.3 03/27 [facility] CHEM PANEL Alk Phos 45 unit/L 39 - 136 03/27 [facility] CHEM PANEL AST 11 unit/L 0 - 37 03/27 [facility] CHEM PANEL ALT 22 unit/L 0 - 65 03/27 [facility] CHEM PANEL Albumin Lvl 4.0 g/dL 3.5 - 5.0 03/27 [facility] CHEM PANEL Total 7.4 g/dL 6.4 - 8.4 03/27 Protein [facility] CHEM PANEL Calcium Lvl 8.3 mg/dL 8.5 - 10.5 03/27 [facility] CHEM PANEL eGFR 121 03/27 Result Comment: The eGFR is calculated using the CKD-EPI formula. In most young, healthy individuals the eGFR will be >90 mL/ min/1.73m2. The eGFR declines with age. An eGFR of 60-89 may be normal in mL/min/1.7 some populations, particularly the elderly, for whom the CKD-EPI formula has not been extensively validated. Use of the eGFR is not recommended in the following populations: [facility] 3m2 Individuals with unstable creatinine concentrations, including patients and those with serious co-morbid conditions. Patients with extremes in muscle mass or diet. The data above are obtained from the National Kidney Disease Education Program (NKDEP) which additionally recommends that when the eGFR is used in patients with extremes of body mass index for purposes of drug dosing, the eGFR should be multiplied by the estimated BMI. CHEM PANEL Glucose Lvl 78 mg/dL 70 - 99 03/27 [facility] CHEM PANEL BUN 13 mg/dL 7 - 22 03/27 [facility] CHEM PANEL Creatinine 0.57 mg/dL 0.50 - 03/27 Lvl 1.40 [facility] ENDOCRINOL S Preg Negative Negative 03/27 OG [facility] *NA* (03/27/17 9:14 AM) HEMATOLOGY RDW 13.1 % 11.5 - 03/27 14.5 [facility] HEMATOLOGY MCH 31.7 pg 27.0 - 03/27 31.0 [facility] HEMATOLOGY MCHC 34.3 g/dL 32.0 - 03/27 36.0 [facility] HEMATOLOGY RBC 4.36 M/CMM 4.20 - 03/27 MH 5.40 [facility] HEMATOLOGY WBC 7.1 K/CMM 3.7 - 10.4 03/27 [facility] HEMATOLOGY MPV 7.9 fL 7.4 - 10.4 03/27 [facility] HEMATOLOGY Platelet 251 K/CMM 133 - 450 03/27 [facility] HEMATOLOGY Hct 40.3 % 36.0 - 03/27 48.0 [facility] HEMATOLOGY MCV 92.6 fL 80.0 - 03/27 MH 98.0 [facility] HEMATOLOGY Hgb 13.8 g/dL 12.0 - 03/27 MH 16.0 [facility] HEMATOLOGY Monocytes 4.7 % 2.0 - 12.0 03/27 [facility] HEMATOLOGY Segs 72.2 % 45.0 - 03/27 MH 75.0 [facility] HEMATOLOGY Lymphocytes 21.3 % 20.0 - 03/27 MH 40.0 [facility] HEMATOLOGY Segs-Bands # 5.1 K/CMM 1.5 - 8.1 03/27 [facility] HEMATOLOGY Basophils 0.6 % 0.0 - 1.0 03/27 [facility] HEMATOLOGY Eosinophils 1.2 % 0.0 - 4.0 03/27 [facility] HEMATOLOGY Eosinophils 0.1 K/CMM 0.0 - 0.5 03/27 [facility] HEMATOLOGY Monocytes # 0.3 K/CMM 0.0 - 0.8 03/27 [facility] HEMATOLOGY Lymphocytes 1.5 K/CMM 1.0 - 5.5 03/27 [facility] URINE AND UA <=1.0 0.1 - 1.0 03/27 STOOL Urobilinogen mg/dL [facility] URINE AND UA Leuk Est Small Negative 03/27 STOOL [facility] *ABN* (03/27/17 9:14 AM) URINE AND UA Bacteria Occasional None Seen 03/27 [facility] /HPF /HPF /2016 [facility] URINE AND UA Sq Epi Many /LPF Few /LPF 03/27 [facility] URINE AND UA WBC 3 /HPF 0 - 5 03/27 STOOL [facility] URINE AND UA Bili Negative Negative 03/27 STOOL [facility] *NA* (03/27/17 9:14 AM) URINE AND UA Blood Negative Negative 03/27 STOOL [facility] (03/27/17 9:14 AM) URINE AND UA Nitrite Negative Negative 03/27 STOOL (03/27/17 9:14 AM) URINE AND UA Glucose Negative Negative 03/27 STOOL mg/dL mg/dL [facility] URINE AND UA Ketones Negative Negative 03/27 STOOL mg/dL mg/dL [facility] URINE AND UA pH 6.0 5.0 - 8.0 03/27 STOOL [facility] URINE AND UA Protein Negative Negative 03/27 STOOL mg/dL mg/dL URINE AND UA Turbidity Slight Clear 03/27 STOOL [facility] *ABN* (03/27/17 9:14 AM) URINE AND UA Spec Grav 1.023 <=1.030 03/27 URINE AND UA Color Yellow Yellow 03/27 *NA* (03/27/17 9:14 AM) URINE AND UA RBC 2 /HPF 0 - 2 03/27 URINE AND UA Mucus Few /LPF None Seen 03/27 STOOL /LPF [facility] URINE CHEM U Preg Negative Negative 03/27 [facility] (03/27/17 9:14 AM) Abdomen/Pe Abdomen/Pelv Abdomen/Pelvis wo IV contrast CT 03/27 - lvis wo IV is wo IV - [facility] contrast contrast CT CT TECHNIQUE: Contiguous transaxial images of the abdomen and pelvis were performed from the lung bases to the superior pubic rami without IV contrast. Read by: Sae Toro MD Dictated Date/time: 03/27/17 10:45 Electronically Signed by: Sae Toro MD 03/27/17 11:11 FINAL REPORT COMPARISON: 01/25/2017 CLINICAL HX: Abdominal pain, acute. CT DLP: 1181.48 mGy-cm. HN,CJ. - r/o kidney stone / pt left left flank pain.. CT ABDOMEN: Lower Chest: The lung bases are clear. GI Tract: Bowel gas pattern is unremarkable. Appendix is not visualized but no significant edematous change is present in the right lower abdomen. There is no evidence for free fluid or free air in the abdomen. Tract and Retroperitoneum: A few nonobstructing calyceal calculi in the range of 1 to 2 mm are visualized in both kidneys. No obstructing ureteric calculus. No hydronephrosis. Renal cortical volume i s reasonably well preserved without evidence for cortical scarring. Abdominal viscera: Noncontrast images of the liver are unremarkable. The spleen, pancreas and both adrenals demonstrate no gross abnormalities given the limitation of lack of IV contrast. Gallbladder demonstrates normal morphology. Vasculature: Aorta demonstrates normal morphology. Bone and Soft tissues: Multiple surgical clips are visualized in the right lower abdomen anterior to the psoas muscle, unchanged from previous study. No significant bony abnormality is noted. CT PELVIS: The bladder, uterus and adnexa are unremarkable in appearance, given the limitation of lack of IV contrast. No free fluid is present in the pelvis. IMPRESSION: A few tiny nonobstructing calyceal calculi are visualized in both kidneys. No obstructing tract calculus. No hydronephrosis. No other significant abnormality is noted on the noncontrast CT of the abdomen and pelvis SL: [id number] CHEM PANEL A/G Ratio 1.0 0.7 - 1.6 01/26 [facility] CHEM PANEL Globulin 3.1 g/dL 2.7 - 4.2 01/26 [facility] CHEM PANEL B/C Ratio 7 6 - 25 01/26 [facility] CHEM PANEL AGAP 9.7 meq/L 10.0 - 01/26 MH 20.0 [facility] CHEM PANEL eGFR 115 01/26 Result Comment: The eGFR is calculated using the CKD-EPI formula. In most young, healthy individuals the eGFR will be >90 mL/ min/1.73m2. The eGFR declines with age. An eGFR of 60-89 may be normal in mL/min/1.7 some populations, particularly the elderly, for whom the CKD-EPI formula has not been extensively validated. Use of the eGFR is not recommended in the following populations: [facility] 3m2 Individuals with unstable creatinine concentrations, including patients and those with serious co-morbid conditions. Patients with extremes in muscle mass or diet. The data above are obtained from the National Kidney Disease Education Program (NKDEP) which additionally recommends that when the eGFR is used in patients with extremes of body mass index for purposes of drug dosing, the eGFR should be multiplied by the estimated BMI. CHEM PANEL Alk Phos 55 unit/L 39 - 136 01/26 [facility] CHEM PANEL CO2 28 meq/L 24 - 32 01/26 [facility] CHEM PANEL Chloride Lvl 108 meq/L 95 - 109 01/26 [facility] CHEM PANEL Bili Total 0.6 mg/dL 0.2 - 1.3 01/26 [facility] CHEM PANEL ALT 36 unit/L 0 - 65 01/26 [facility] CHEM PANEL Albumin Lvl 3.2 g/dL 3.5 - 5.0 01/26 [facility] CHEM PANEL Calcium Lvl 7.8 mg/dL 8.5 - 10.5 01/26 [facility] CHEM PANEL Total 6.3 g/dL 6.4 - 8.4 01/26 MH Protein [facility] CHEM PANEL Potassium 3.7 meq/L 3.5 - 5.1 01/26 MH Lvl /2016 [facility] CHEM PANEL AST 35 unit/L 0 - 37 01/26 [facility] CHEM PANEL Sodium Lvl 142 meq/L 135 - 145 01/26 [facility] CHEM PANEL Creatinine 0.67 mg/dL 0.50 - 01/26 MH Lvl 1.40 [facility] CHEM PANEL Glucose Lvl 91 mg/dL 70 - 99 01/26 [facility] CHEM PANEL BUN 5 mg/dL 7 - 22 01/26 [facility] HEMATOLOGY Lymphocytes 21.5 % 20.0 - 01/26 MH 40.0 [facility] HEMATOLOGY Eosinophils 3.0 % 0.0 - 4.0 01/26 [facility] HEMATOLOGY Segs 66.9 % 45.0 - 01/26 MH 75.0 [facility] HEMATOLOGY Monocytes 7.9 % 2.0 - 12.0 01/26 [facility] HEMATOLOGY Segs-Bands # 3.6 K/CMM 1.5 - 8.1 01/26 [facility] HEMATOLOGY Eosinophils 0.2 K/CMM 0.0 - 0.5 01/26 MH # /2016 [facility] HEMATOLOGY Lymphocytes 1.2 K/CMM 1.0 - 5.5 01/26 MH # /2016 [facility] HEMATOLOGY Basophils 0.7 % 0.0 - 1.0 01/26 [facility] HEMATOLOGY Monocytes # 0.4 K/CMM 0.0 - 0.8 01/26 [facility] HEMATOLOGY Hct 35.0 % 36.0 - 01/26 MH 48.0 [facility] HEMATOLOGY MCHC 34.2 g/dL 32.0 - 01/26 MH 36.0 [facility] HEMATOLOGY RDW 12.1 % 11.5 - 01/26 MH 14. [facility] HEMATOLOGY Platelet 246 K/CMM 133 - 450 01/26 [facility] HEMATOLOGY WBC 5.4 K/CMM 3.7 - 10.4 01/26 [facility] HEMATOLOGY RBC 3.90 M/CMM 4.20 - 01/26 MH 5.40 [facility] HEMATOLOGY Hgb 12.0 g/dL 12.0 - 01/26 MH 16.0 [facility] HEMATOLOGY MCV 89.8 fL 80.0 - 03/19 MH 98.0 [facility] HEMATOLOGY MCH 30.7 pg 27.0 - 01/26 MH 31.0 [facility] HEMATOLOGY MPV 7.4 fL 7.4 - 10.4 01/26 [facility] CHEM PANEL Alk Phos 44 unit/L 39 - 136 01/25 [facility] CHEM PANEL Bili Total 0.8 mg/dL 0.2 - 1.3 01/25 [facility] CHEM PANEL Albumin Lvl 3.1 g/dL 3.5 - 5.0 01/25 [facility] CHEM PANEL Total 5.9 g/dL 6.4 - 8.4 01/25 [facility] CHEM PANEL ALT 21 unit/L 0 - 65 01/25 [facility] CHEM PANEL AST 17 unit/L 0 - 37 01/25 [facility] CHEM PANEL Calcium Lvl 7.2 mg/dL 8.5 - 10.5 01/25 [facility] CHEM PANEL eGFR 121 01/25 Result Comment: The eGFR is calculated using the CKD-EPI formula. In most young, healthy individuals the eGFR will be >90 mL/ min/1.73m2. The eGFR declines with age. An eGFR of 60-89 may be normal in mL/min/1.7 some populations, particularly the elderly, for whom the CKD-EPI formula has not been extensively validated. Use of the eGFR is not recommended in the following populations: [facility] 3m2 Individuals with unstable creatinine concentrations, including patients and those with serious co-morbid conditions. Patients with extremes in muscle mass or diet. The data above are obtained from the National Kidney Disease Education Program (NKDEP) which additionally recommends that when the eGFR is used in patients with extremes of body mass index for purposes of drug dosing, the eGFR should be multiplied by the estimated BMI. CHEM PANEL CO2 25 meq/L 24 - 32 01/25 [facility] CHEM PANEL Potassium 3.7 meq/L 3.5 - 5.1 01/25 MH Lvl [facility] CHEM PANEL Chloride Lvl 109 meq/L 95 - 109 01/25 [facility] CHEM PANEL Creatinine 0.57 mg/dL 0.50 - 01/25 MH Lvl 1.40 [facility] CHEM PANEL Sodium Lvl 140 meq/L 135 - 145 01/25 [facility] CHEM PANEL BUN 14 mg/dL 7 - 22 01/25 [facility] CHEM PANEL Glucose Lvl 74 mg/dL 70 - 99 01/25 [facility] CHEM PANEL A/G Ratio 1.1 0.7 - 1.6 01/25 [facility] CHEM PANEL AGAP 9.7 meq/L 10.0 - 01/25 MH 20.0 [facility] CHEM PANEL B/C Ratio 25 6 - 25 01/25 [facility] CHEM PANEL Globulin 2.8 g/dL 2.7 - 4.2 01/25 [facility] CHEM PANEL Magnesium 1.9 mg/dL 1.8 - 2.4 01/25 Lvl /2016 [facility] CHEM PANEL Phosphorus 1.8 mg/dL 2.5 - 4.5 01/25 [facility] HEMATOLOGY Monocytes # 0.5 K/CMM 0.0 - 0.8 01/25 [facility] HEMATOLOGY Segs-Bands # 4.6 K/CMM 1.5 - 8.1 01/25 [facility] HEMATOLOGY Lymphocytes 1.9 K/CMM 1.0 - 5.5 01/25 MH [facility] HEMATOLOGY Basophils 0.3 % 0.0 - 1.0 01/25 [facility] HEMATOLOGY Eosinophils 2.3 % 0.0 - 4.0 01/25 [facility] HEMATOLOGY Lymphocytes 26.5 % 20.0 - 01/25 40.0 [facility] HEMATOLOGY Monocytes 6.8 % 2.0 - 12.0 01/25 [facility] HEMATOLOGY Segs 64.1 % 45.0 - 01/25 75.0 [facility] HEMATOLOGY Eosinophils 0.2 K/CMM 0.0 - 0.5 01/25 MH [facility] HEMATOLOGY MPV 7.8 fL 7.4 - 10.4 01/25 [facility] HEMATOLOGY RDW 12.3 % 11.5 - 01/25 MH 14.5 [facility] HEMATOLOGY Platelet 209 K/CMM 133 - 450 01/25 [facility] HEMATOLOGY WBC 7.2 K/CMM 3.7 - 10.4 01/25 [facility] HEMATOLOGY Hgb 10.9 g/dL 12.0 - 01/25 MH 16.0 [facility] HEMATOLOGY Hct 33.1 % 36.0 - 01/25 MH 48.0 [facility] HEMATOLOGY RBC 3.58 M/CMM 4.20 - 01/25 MH 5.40 /2016 [facility] HEMATOLOGY MCHC 33.1 g/dL 32.0 - 01/25 MH 36.0 /2016 [facility] HEMATOLOGY MCH 30.6 pg 27.0 - 01/25 MH 31.0 [facility] HEMATOLOGY MCV 92.5 fL 80.0 - 01/25 98.0 [facility] CHEM PANEL Albumin Lvl 3.6 g/dL 3.5 - 5.0 01/24 [facility] CHEM PANEL Globulin 2.9 g/dL 2.7 - 4.2 01/24 [facility] CHEM PANEL ALT 21 unit/L 0 - 65 01/24 [facility] CHEM PANEL A/G Ratio 1.2 0.7 - 1.6 01/24 [facility] CHEM PANEL AST 16 unit/L 0 - 37 01/24 [facility] CHEM PANEL Bili Total 0.8 mg/dL 0.2 - 1.3 01/24 [facility] CHEM PANEL Bili Direct 0.1 mg/dL 0.0 - 0.3 01/24 [facility] CHEM PANEL Alk Phos 49 unit/L 39 - 136 01/24 [facility] CHEM PANEL Bili 0.7 mg/dL 0.0 - 1.0 01/24 [facility] CHEM PANEL Total 6.5 g/dL 6.4 - 8.4 01/24 [facility] Abdomen Abdomen RUQ Abdomen RUQ US 01/24 - RUQ US US /2016 - [facility] TECHNIQUE: Grayscale and color Doppler images of the right upper quadrant of the abdomen were performed with a curvilinear transducer. Static images are submitted for review. Read by: Sae Toro MD Dictated Date/time: 01/24/17 15:53 Electronically Signed by: Sae Toro MD 01/24/17 15:56 FINAL REPORT CLINICAL HX: Abdominal pain, acute; epigastric pain COMPARISON: 10/21/2016 FINDINGS: LIVER: There is diffuse heterogeneous increase in echogenicity of the liver suggestive of fatty infiltration and/or nonspecific hepatocellular disease. GALL BLADDER AND BILE DUCTS: Gall bladder is sonolucent without evidence for gall stones. CBD measures 6 mm. PANCREAS: Pancreas is largely obscured by bowel gas. Right kidney: Right kidney demonstrates normal echotexture and size and reveals no gross masses or any evidence for hydronephrosis. Maximal sagittal diameter of the right kidney is 12.1 cm. Vascular: Midline structures including the IVC are obscured due to bowel gas. Ascites: No free fluid is present in the right upper abdomen. No significant effusion is noted on the right. IMPRESSION: Limited evaluation due to extensive bowel gas. No definite evidence for gall stones. There is diffuse heterogeneous increase in echogenicity of the liver suggestive of fatty infiltration and/or nonspecific hepatocellular disease. No other significant sonographic abnormality is noted in the RUQ of the abdomen. SL: [id number] CHEM PANEL B/C Ratio 22 6 - 25 01/24 [facility] CHEM PANEL AGAP 10.8 meq/L 10.0 - 01/24 MH 20.0 [facility] CHEM PANEL eGFR 90 01/24 Result Comment: The eGFR is calculated using the CKD-EPI formula. In most young, healthy individuals the eGFR will be >90 mL/ min/1.73m2. The eGFR declines with age. An eGFR of 60-89 may be normal in mL/min/1.7 some populations, particularly the elderly, for whom the CKD-EPI formula has not been extensively validated. Use of the eGFR is not recommended in the following populations: [facility] 3m2 Individuals with unstable creatinine concentrations, including patients and those with serious co-morbid conditions. Patients with extremes in muscle mass or diet. The data above are obtained from the National Kidney Disease Education Program (NKDEP) which additionally recommends that when the eGFR is used in patients with extremes of body mass index for purposes of drug dosing, the eGFR should be multiplied by the estimated BMI. CHEM PANEL Glucose Lvl 82 mg/dL 70 - 99 01/24 [facility] CHEM PANEL Creatinine 0.85 mg/dL 0.50 - 01/24 MH Lvl 1.40 [facility] CHEM PANEL BUN 19 mg/dL 7 - 22 01/24 [facility] CHEM PANEL Chloride Lvl 106 meq/L 95 - 109 01/24 [facility] CHEM PANEL Calcium Lvl 8.3 mg/dL 8.5 - 10.5 01/24 [facility] CHEM PANEL CO2 27 meq/L 24 - 32 01/24 [facility] CHEM PANEL Potassium 3.8 meq/L 3.5 - 5.1 01/24 MH Lvl /2016 [facility] CHEM PANEL Sodium Lvl 140 meq/L 135 - 145 01/24 [facility] CHEM PANEL Lipase Lvl 127 unit/L 73 - 393 01/24 /2016 [facility] HEMATOLOGY INR 0.93 0.85 - 01/24 MH 1.17 [facility] HEMATOLOGY PT 12.7 s 12.0 - 01/24 MH 14.7 [facility] HEMATOLOGY PTT 32.9 s 22.9 - 01/24 MH 35.8 /2016 [facility] HEMATOLOGY WBC 9.1 K/CMM 3.7 - 10.4 01/24 /2016 [facility] HEMATOLOGY Hct 37.9 % 36.0 - 01/24 MH 48.0 /2016 [facility] HEMATOLOGY Hgb 12.8 g/dL 12.0 - 01/24 MH 16.0 [facility] HEMATOLOGY MCV 91.1 fL 80.0 - 01/24 MH 98.0 /2016 [facility] HEMATOLOGY MCH 30.8 pg 27.0 - 01/24 MH 31.0 [facility] HEMATOLOGY MCHC 33.8 g/dL 32.0 - 01/24 MH 36.0 [facility] HEMATOLOGY RBC 4.16 M/CMM 4.20 - 01/24 MH 5.40 [facility] HEMATOLOGY Platelet 249 K/CMM 133 - 450 01/24 /2016 [facility] HEMATOLOGY MPV 8.2 fL 7.4 - 10.4 01/24 /2016 [facility] HEMATOLOGY RDW 12.6 % 11.5 - 01/24 MH 14.5 [facility] HEMATOLOGY Monocytes 6.8 % 2.0 - 12.0 01/24 /2016 [facility] HEMATOLOGY Eosinophils 2.5 % 0.0 - 4.0 01/24 /2016 [facility] HEMATOLOGY Basophils 0.4 % 0.0 - 1.0 01/24 /2016 [facility] HEMATOLOGY Lymphocytes 22.5 % 20.0 - 01/24 MH 40.0 [facility] HEMATOLOGY Eosinophils 0.2 K/CMM 0.0 - 0.5 01/24 MH # /2017 [facility] HEMATOLOGY Lymphocytes 2.0 K/CMM 1.0 - 5.5 01/24 MH # /2016 [facility] HEMATOLOGY Monocytes # 0.6 K/CMM 0.0 - 0.8 01/24 /2016 [facility] HEMATOLOGY Segs-Bands # 6.2 K/CMM 1.5 - 8.1 01/24 /2016 [facility] HEMATOLOGY Segs 67.8 % 45.0 - 01/24 MH 75.0 [facility] URINE AND UA Mucus Few /LPF None Seen 01/24 STOOL /LPF URINE AND UA RBC null 0 - 2 01/24 URINE AND UA WBC 4 /HPF 0 - 5 01/24 URINE AND UA Sq Epi Many /LPF Few /LPF 01/24 [facility] URINE AND UA Leuk Est Negative Negative 01/24 (01/24/17 2:32 AM) URINE AND UA Nitrite Positive Negative 01/24 *ABN* (01/24/17 2:32 AM) URINE AND UA 2.0 mg/dL 0.1 - 1.0 01/24 STOOL Urobilinogen URINE AND UA Blood Large Negative 01/24 *ABN* (01/24/17 2:32 AM) URINE AND UA Bili Negative Negative 01/24 *NA* (01/24/17 2:32 AM) URINE AND UA Color Red 01/24 URINE AND UA Protein 30 mg/dL Negative 01/24 STOOL mg/dL URINE AND UA Glucose Negative Negative 01/24 STOOL mg/dL mg/dL URINE AND UA Ketones Negative Negative 01/24 STOOL mg/dL mg/dL URINE AND UA pH 5.0 5.0 - 8.0 01/24 URINE AND UA Turbidity Marked Clear 01/24 *ABN* (01/24/17 2:32 AM) URINE AND UA Spec Grav 1.034 <=1.030 01/24 URINE AND UA Color Lizzie 01/23 URINE AND UA Blood Negative Negative 01/23 (01/23/17 12:04 AM) URINE AND UA 2.0 mg/dL 0.1 - 1.0 01/23 STOOL Urobilinogen URINE AND UA Nitrite Negative Negative 01/23 (01/23/17 12:04 AM) URINE AND UA Leuk Est Large Negative 01/23 *ABN* (01/23/17 12:04 AM) URINE AND UA Sq Epi Many /LPF Few /LPF 01/23 [facility] URINE AND UA RBC 7 /HPF 0 - 2 01/23 [facility] URINE AND UA Mucus Moderate None Seen 01/23 STOOL /LPF /LPF /2016 [facility] URINE AND UA WBC 78 /HPF 0 - 5 01/23 [facility] URINE AND UA Bacteria Occasional None Seen 01/23 STOOL /HPF /HPF [facility] URINE AND UA pH 5.0 5.0 - 8.0 01/23 [facility] URINE AND UA Protein 30 mg/dL Negative 01/23 STOOL mg/dL [facility] URINE AND UA Glucose Negative Negative 01/23 STOOL mg/dL mg/dL [facility] URINE AND UA Bili Small Negative 01/23 [facility] *ABN* (01/23/17 12:04 AM) URINE AND UA Ketones Negative Negative 01/23 STOOL mg/dL mg/dL [facility] URINE AND UA Turbidity Marked Clear 01/23 [facility] *ABN* (01/23/17 12:04 AM) URINE AND UA Spec Grav 1.032 <=1.030 01/23 [facility] URINE CHEM U Preg Negative Negative 01/23 [facility] (01/23/17 12:04 AM) CHEM PANEL eGFR 94 01/23 Result Comment: The eGFR is calculated using the CKD-EPI formula. In most young, healthy individuals the eGFR will be >90 mL/ min/1.73m2. The eGFR declines with age. An eGFR of 60-89 may be normal in mL/min/1.7 some populations, particularly the elderly, for whom the CKD-EPI formula has not been extensively validated. Use of the eGFR is not recommended in the following populations: [facility] 3m2 Individuals with unstable creatinine concentrations, including patients and those with serious co-morbid conditions. Patients with extremes in muscle mass or diet. The data above are obtained from the National Kidney Disease Education Program (NKDEP) which additionally recommends that when the eGFR is used in patients with extremes of body mass index for purposes of drug dosing, the eGFR should be multiplied by the estimated BMI. CHEM PANEL Glucose Lvl 94 mg/dL 70 - 99 01/23 [facility] CHEM PANEL Creatinine 0.82 mg/dL 0.50 - 01/23 Lvl 1.40 /2016 [facility] CHEM PANEL BUN 20 mg/dL 7 - 22 01/23 [facility] CHEM PANEL Calcium Lvl 8.4 mg/dL 8.5 - 10.5 01/23 [facility] CHEM PANEL Sodium Lvl 140 meq/L 135 - 145 01/23 [facility] CHEM PANEL Chloride Lvl 105 meq/L 95 - 109 01/23 [facility] CHEM PANEL Potassium 4.0 meq/L 3.5 - 5.1 01/23 MH Lvl /2016 [facility] CHEM PANEL CO2 28 meq/L 24 - 32 01/23 [facility] CHEM PANEL AGAP 11.0 meq/L 10.0 - 01/23 MH 20.0 [facility] HEMATOLOGY MCH 30.6 pg 27.0 - 01/23 MH 31.0 [facility] HEMATOLOGY MCHC 33.8 g/dL 32.0 - 01/23 MH 36.0 [facility] HEMATOLOGY Hgb 12.8 g/dL 12.0 - 01/23 MH 16.0 [facility] HEMATOLOGY Hct 38.0 % 36.0 - 01/23 MH 48.0 [facility] HEMATOLOGY MCV 90.7 fL 80.0 - 01/23 MH 98.0 [facility] HEMATOLOGY RDW 12.2 % 11.5 - 01/23 MH 14.5 [facility] HEMATOLOGY Platelet 244 K/CMM 133 - 450 01/23 [facility] HEMATOLOGY MPV 8.4 fL 7.4 - 10.4 01/23 /2016 [facility] HEMATOLOGY RBC 4.19 M/CMM 4.20 - 01/23 MH 5.40 [facility] HEMATOLOGY WBC 7.5 K/CMM 3.7 - 10.4 01/23 [facility] HEMATOLOGY Lymphocytes 31.5 % 20.0 - 01/23 MH 40.0 [facility] HEMATOLOGY Segs 56.4 % 45.0 - 01/23 MH 75.0 [facility] HEMATOLOGY Eosinophils 3.3 % 0.0 - 4.0 01/23 [facility] HEMATOLOGY Basophils 0.7 % 0.0 - 1.0 01/23 [facility] HEMATOLOGY Lymphocytes 2.4 K/CMM 1.0 - 5.5 01/23 MH # /2016 [facility] HEMATOLOGY Segs-Bands # 4.2 K/CMM 1.5 - 8.1 01/23 [facility] HEMATOLOGY Eosinophils 0.2 K/CMM 0.0 - 0.5 01/23 MH # /2016 [facility] HEMATOLOGY Basophils # 0.1 K/CMM 0.0 - 0.2 01/23 [facility] HEMATOLOGY Monocytes 8.1 % 2.0 - 12.0 01/23 [facility] HEMATOLOGY Monocytes # 0.6 K/CMM 0.0 - 0.8 01/23 [facility] Renal Renal Stone CT ABD PELVIS W/O 01/[address] [facility] Read by: Mercy Villafana MD Dictated Date/time: 01/23/17 02:07 Study: CT of the abdomen and pelvis without intravenous contrast Electronically Signed by: Mercy Villafana MD 01/23/17 02 :17 FINAL REPORT History: Flank pain Comments: CT of the abdomen and pelvis was obtained utilizing multiple axial images from the lung bases to the ishial tuberosities. Intravenous contrast was not given. Lack of intravenous contrast limi ts evaluation of solid organ, vessels and certain processes. Total exam DLP is 1118 mgy-cm. Abdomen: The visualized unenhanced liver, spleen, gallbladder, pancreas and adrenal glands are within normal limits. Punctate nonobstructive left renal calculus The small and large bowel loops are nondilated. No evidence of appendicitis or diverticulitis. The urinary bladder is within normal limits. Uterus present There is no free air or fluid collections. The bones are within normal limits Impression: Punctate nonobstructive left renal calculus Knee 3 Knee 3 views Patient Name: SHALOM RIGGS 11/21 - views DX [facility] : 1980; Age: 36 years Female MR: [id number] Read by: Rafael Vera MD Dictated Date/time: 11/21/16 20:38 Electronically Signed by: Rafael Vera MD 11/21/16 20:40 FINAL REPORT Study: Knee 3 views DX 11/21/2016 7:50 PM [employer] Clinical Indication: Pain and swelling. Pain and swelling. heard a pop playing with kids today. Torn ACL nine years ago. COMPARISON: None FINDINGS: Views and laterality: 3 views right Examination of the knee demonstrates normal alignment without fractures or dislocations. The patient is status post prior anterior cruciate ligament repair. The medial, lateral tibiofemoral compartments and patellofemoral compartment are normal. There is no knee regional soft tissue swelling. Hoffa's fat pad is normal. There are no loose bodies in the joint space. There is no joint effusion. There are no radiopaque foreign bodies. If there is further concern, recommend follow-up radiographs or MRI for complete assessment. IMPRESSION: 1. No fractures or dislocation of the knee. 2. Post anterior cruciate ligament repair. SL: [facility] CHEM PANEL Calcium Lvl 8.5 mg/dL 8.5 - 10.5 10/31 [facility] CHEM PANEL Glucose Lvl 92 mg/dL 70 - 99 10/31 [facility] CHEM PANEL Chloride Lvl 105 meq/L 95 - 109 10/31 [facility] CHEM PANEL CO2 27 meq/L 24 - 32 10/31 [facility] CHEM PANEL Sodium Lvl 141 meq/L 135 - 145 10/31 [facility] CHEM PANEL BUN 7 mg/dL 7 - 10/31 [facility] CHEM PANEL Potassium 3.4 meq/L 3.5 - 5.1 10/31 Lv [facility] CHEM PANEL eGFR 109 10/31 Result Comment: The eGFR is calculated using the CKD-EPI formula. In most young, healthy individuals the eGFR will be >90 mL/ min/1.73m2. The eGFR declines with age. An eGFR of 60-89 may be normal in mL/min/1. some populations, particularly the elderly, for whom the CKD-EPI formula has not been extensively validated. Use of the eGFR is not recommended in the following populations: [address] Individuals with unstable creatinine concentrations, including patients and those with serious co-morbid conditions. Patients with extremes in muscle mass or diet. The data above are obtained from the National Kidney Disease Education Program (NKDEP) which additionally recommends that when the eGFR is used in patients with extremes of body mass index for purposes of drug dosing, the eGFR should be multiplied by the estimated BMI. CHEM PANEL Creatinine 0.72 mg/dL 0.50 - 10/31 Lvl 1.40 [facility] CHEM PANEL AGAP 12.4 meq/L 10.0 - 10/31 MH 20.0 [facility] HEMATOLOGY MPV 8.4 fL 7.4 - 10.4 10/31 [facility] HEMATOLOGY MCHC 33.4 g/dL 32.0 - 10/31 MH 36.0 [facility] HEMATOLOGY MCH 30.5 pg 27.0 - 10/31 MH 31.0 /2015 [facility] HEMATOLOGY MCV 91.2 fL 80.0 - 10/31 MH 98.0 /2015 [facility] HEMATOLOGY Hct 38.7 % 36.0 - 10/31 MH 48.0 /2015 [facility] HEMATOLOGY Platelet 248 K/CMM 133 - 450 10/31 [facility] HEMATOLOGY RDW 12.3 % 11.5 - 10/31 MH 14.5 /2015 [facility] HEMATOLOGY Hgb 12.9 g/dL 12.0 - 10/31 MH 16.0 /2015 [facility] HEMATOLOGY RBC 4.25 M/CMM 4.20 - 10/31 MH 5.40 /2015 [facility] HEMATOLOGY WBC 5.3 K/CMM 3.7 - 10.4 10/31 [facility] HEMATOLOGY Eosinophils 0.2 K/CMM 0.0 - 0.5 10/31 MH # /2015 [facility] HEMATOLOGY Lymphocytes 2.1 K/CMM 1.0 - 5.5 10/31 # /2015 [facility] HEMATOLOGY Segs-Bands # 2.4 K/CMM 1.5 - 8.1 10/31 [facility] HEMATOLOGY Monocytes # 0.5 K/CMM 0.0 - 0.8 10/31 [facility] HEMATOLOGY Eosinophils 3.9 % 0.0 - 4.0 10/31 [facility] HEMATOLOGY Basophils 0.6 % 0.0 - 1.0 10/31 [facility] HEMATOLOGY Lymphocytes 40.4 % 20.0 - 10/31 MH 40.0 [facility] HEMATOLOGY Segs 45.9 % 45.0 - 10/31 MH 75.0 [facility] HEMATOLOGY Monocytes 9.2 % 2.0 - 12.0 10/31 [facility] URINE AND UA Ketones Negative 10/31 STOOL [facility] URINE AND UA <=1.0 0.1 - 1.0 10/31 STOOL Urobilinogen mg/dL /2015 [facility] URINE AND UA Turbidity Marked Clear 10/31 STOOL [facility]* [facility] (10/30/16 10:01 PM) URINE AND UA Protein Negative Negative 10/31 STOOL mg/dL mg/dL [facility] URINE AND UA pH 5.0 5.0 - 8.0 10/31 STOOL [facility] URINE AND UA Spec Grav 1.028 <=1.030 10/31 STOOL [facility] URINE AND UA Nitrite Negative Negative 10/31 [facility] (10/30/16 10:01 PM) [facility] URINE AND UA Bili Negative Negative 10/31 [facility] *NA* [facility] (10/30/16 10:01 PM) URINE AND UA Glucose Negative Negative 10/31 STOOL mg/dL mg/dL /2015 [facility] URINE AND UA Blood Negative Negative 10/31 [facility] (10/30/16 10:01 PM) [facility] URINE AND UA WBC 10 /HPF 0 - 5 10/31 [facility] URINE AND UA RBC 30 /HPF 0 - 2 10/31 [facility] URINE AND UA Sq Epi Many /LPF Few /LPF 10/31 [facility] Leuk Est [facility] (10/30/16 10:01 PM) URINE AND UA Bacteria Occasional None Seen 10/31 STOOL /HPF /HPF [facility] URINE AND UA [place] Yeast Occasional None Seen 10/31 STOOL /HPF /HPF /2015 [facility] URINE AND UA Mucus Few /LPF None Seen 10/31 STOOL /LPF /2015 [facility] URINE AND UA Color Yellow Yellow 10/31 [facility] *NA* [facility] (10/30/16 10:01 PM) URINE CHEM U Preg Negative Negative 10/31 [facility] (10/30/16 10:01 PM) [facility] Renal Renal Stone CLINICAL HISTORY: renal stone protocol , Abdominal pain, acute 10/30 - Stone CT CT - [facility] EXAM: CT abdomen and pelvis without contrast 10/30/2016 10:53 PM [employer] Read by: Selene Colvin MD Dictated Date/time: 10/31/16 00:00 Electronically Signed by: Selene Colvin MD 10/31/16 00:03 FINAL REPORT COMPARISON: CT Stone study 10/17/2016 TECHNIQUE: Volumetric CT acquisition was performed through the abdomen and pelvis. Images in the axial, coronal, and sagittal planes were presented for interpretation. No intravenous or enteric contrast was administered. Radiation dose/contrast: Total DLP:[id number] FINDINGS: The lung bases are clear. The visualized cardiomediastinal structures within normal limits. Within the upper abdomen, the liver and spleen are normal in size and morphology. The gallbladder is normal in appearance. There is no intra or extrahepatic biliary ductal dilation. The pancreas and adrenal glands are normal in appearance. The right kidney is normal in size and the right ureter is normal in course and caliber. There is a stable punctate nonobstructing stone along the inferior pole of the right renal collecting system on coronal image 84. The left kidney is normal in size and the left ureter is normal in course and caliber. There is a punctate nonobstructing stone in the mid left renal collecting system on axial image 53. There are no d istal obstructing stones or evidence of hydronephrosis/hydroureter. The stomach and small intestines are within normal limits without wall thickening or bowel dilation. The appendix is surgically absent. The colon is stool filled and otherwise unremarkable. Within the pelvis, the bladder and rectum are normal. The uterus and ovaries are age-appropriate. There are no pathologically enlarged inguinal, retroperitoneal, portacaval , or mesenteric lymph nodes. The soft tissue structures of the abdominal wall are normal in appearance. The visualized osseous structures within normal limits for the patient's age. The abdominal aorta and its primary branches are normal in course and caliber. IMPRESSION: 1. No acute intra-abdominal process. 2. Stable punctate nonobstructing bilateral renal calculi. CHEM PANEL Lipase Lvl 299 unit/L 73 - 393 10/21 [facility] CHEM PANEL eGFR 106 10/21 Result Comment: The eGFR is calculated using the CKD-EPI formula. In most young, healthy individuals the eGFR will be >90 mL/ min/1.73m2. The eGFR declines with age. An eGFR of 60-89 may be normal in mL/min/1.2016 some populations, particularly the elderly, for whom the CKD-EPI formula has not been extensively validated. Use of the eGFR is not recommended in the following populations: [facility] 3m2 Individuals with unstable creatinine concentrations, including patients and those with serious co-morbid conditions. Patients with extremes in muscle mass or diet. The data above are obtained from the National Kidney Disease Education Program (NKDEP) which additionally recommends that when the eGFR is used in patients with extremes of body mass index for purposes of drug dosing, the eGFR should be multiplied by the estimated BMI. CHEM PANEL Chloride Lvl 106 meq/L 95 - 109 10/21 [facility] CHEM PANEL CO2 28 meq/L 24 - 32 10/21 [facility] CHEM PANEL Sodium Lvl 141 meq/L 135 - 145 10/21 [facility] CHEM PANEL Potassium 3.6 meq/L 3.5 - 5.1 10/21 MH Lvl /2015 [facility] CHEM PANEL BUN 14 mg/dL 7 - 22 10/21 [facility] CHEM PANEL Glucose Lvl 98 mg/dL 70 - 99 10/21 [facility] CHEM PANEL Creatinine 0.74 mg/dL 0.50 - 12 MH Lvl 1.40 [facility] CHEM PANEL Bili Total null 0.2 - 1.3 10/21 [facility] CHEM PANEL ALT 20 unit/L 0 - 65 10/21 [facility] CHEM PANEL AST 11 unit/L 0 - 37 10/21 [facility] CHEM PANEL Albumin Lvl 3.8 g/dL 3.5 - 5.0 10/21 [facility] CHEM PANEL Alk Phos 48 unit/L 39 - 136 10/21 [facility] CHEM PANEL Calcium Lvl 8.6 mg/dL 8.5 - 10.5 10/21 [facility] CHEM PANEL Total 7.2 g/dL 6.4 - 8.4 10/21 [facility] CHEM PANEL Globulin 3.4 g/dL 2.7 - 4.2 10/21 [facility] CHEM PANEL A/G Ratio 1.1 0.7 - 1.6 10/21 [facility] CHEM PANEL AGAP 10.6 meq/L 10.0 - 10/21 MH 20.0 [facility] CHEM PANEL B/C Ratio 19 6 - 25 10/21 [facility] ENDOCRINOL S Preg Negative Negative 10/21 OG [facility] *NA* (10/20/16 9:35 PM) HEMATOLOGY RBC 4.39 M/CMM 4.20 - 12 MH 5.40 /2015 [facility] HEMATOLOGY WBC 5.5 K/CMM 3.7 - 10.4 10/21 [facility] HEMATOLOGY RDW 11.7 % 11.5 - 10/21 MH 14. [facility] HEMATOLOGY MCHC 33.3 g/dL 32.0 - 12 MH 36.0 [facility] HEMATOLOGY MCV 90.7 fL 80.0 - 10/21 MH 98.0 [facility] HEMATOLOGY MCH 30.2 pg 27.0 - 10/21 MH 31.0 /2016 [facility] HEMATOLOGY Hgb 13.3 g/dL 12.0 - 10/21 MH 16.0 /2016 [facility] HEMATOLOGY Hct 39.8 % 36.0 - / MH 48.0 /2016 [facility] HEMATOLOGY Platelet 273 K/CMM 133 - 450 10/21 MH /2015 [facility] HEMATOLOGY MPV 8.6 fL 7.4 - 10.4 10/21 /2015 [facility] HEMATOLOGY Eosinophils 3.6 % 0.0 - 4.0 10/21 /2015 [facility] HEMATOLOGY Basophils 0.6 % 0.0 - 1.0 10/21 /2015 [facility] HEMATOLOGY Lymphocytes 38.3 % 20.0 - 12/ MH 40.0 /2016 [facility] HEMATOLOGY Monocytes 6.8 % 2.0 - 12.0 10/21 /2015 [facility] HEMATOLOGY Segs-Bands # 2.8 K/CMM 1.5 - 8.1 10/21 /2015 [facility] HEMATOLOGY Segs 50.7 % 45.0 - 10/21 MH 75.0 /2016 [facility] HEMATOLOGY Monocytes # 0.4 K/CMM 0.0 - 0.8 10/21 MH /2015 [facility] HEMATOLOGY Eosinophils 0.2 K/CMM 0.0 - 0.5 10/21 MH # /2016 [facility] HEMATOLOGY Lymphocytes 2.1 K/CMM 1.0 - 5.5 10/21 MH # /2016 [facility] URINE AND UA <=1.0 0.1 - 1.0 10/21 STOOL Urobilinogen mg/dL /2015 [facility] URINE AND UA Mucus Few /LPF None Seen 10/21 STOOL /LPF /2015 [facility] URINE AND UA RBC 8 /HPF 0 - 2 10/21 STOOL /2016 [facility] URINE AND UA WBC 6 /HPF 0 - 5 10/21 STOOL /2016 [facility] URINE AND UA Sq Epi Many /LPF Few /LPF 10/21 STOOL /2016 [facility] URINE AND UA Spec Grav 1.019 <=1.030 10/21 STOOL /2015 [facility] URINE AND UA Ketones Negative Negative 10/21 STOOL mg/dL mg/dL /2015 [facility] URINE AND UA Glucose Negative Negative 10/21 STOOL mg/dL mg/dL [facility] URINE AND UA Protein Negative Negative 10/21 STOOL mg/dL mg/dL [facility] URINE AND UA pH 6.0 5.0 - 8.0 10/21 [facility] URINE AND UA Leuk Est Moderate Negative 10/21 [facility] *ABN* (10/20/16 9:35 PM) URINE AND UA Nitrite Negative Negative 10/21 [facility] (10/20/16 9:35 PM) URINE AND UA Blood Moderate Negative 10/21 *ABN* (10/20/16 9:35 PM) URINE AND UA Bili Negative Negative 10/21 *NA* (10/20/16 9:35 PM) URINE AND UA Color Yellow Yellow 10/21 *NA* (10/20/16 9:35 PM) URINE AND UA Turbidity Marked Clear 10/21 *ABN* (10/20/16 9:35 PM) Abdomen Abdomen RUQ Patient Name: SHALOM RIGGS 10/21 - RUQ US - [facility] : 1980; Age: 36 years y/o Female MR: [id number] Read by: Tea Alas MD Dictated Date/time: 10/21/16 02:08 Electronically Signed by: Tea Alas MD 10/21/16 02:14 FINAL REPORT Study: Abdomen RUQ US 10/20/2016 10:21 PM [employer] Ordering Physician: Michael Kincaid MD Clinical Indication: Abdominal pain, acute; Comparison: None TECHNIQUE: Grayscale and limited color sonographic evaluation of the RUQ was performed with standard technique. FINDINGS: LIVER: The liver demonstrates no acute pathology. No focal lesion appreciated. BILE DUCTS: There is no intrahepatic biliary duct dilation. The common bile duct measures 5 mm. The distal common bile duct is not well seen. GALLBLADDER: There are no stones, sludge, pericholecystic fluid or wall thickening. PANCREAS: The pancreas was largely obscured by bowel gas. KIDNEY: The right kidney measures 10.2 cm. There is no hydronephrosis or focal lesion appreciated. AORTA AND INFERIOR VENA CAVA: Visualized portions appear unremarkable. ASCITES: There is no ascites appreciated. IMPRESSION: No acute pathology appreciated. SL: CHELA CHEM PANEL Magnesium 1.9 mg/dL 1.8 - 2.4 10/17 Lvl [facility] CHEM PANEL Lipase Lvl 510 unit/L 73 - 393 10/17 [facility] CHEM PANEL B/C Ratio 20 6 - 25 10/17 [facility] CHEM PANEL AGAP 12.4 meq/L 10.0 - 12 MH 20.0 /2015 [facility] CHEM PANEL Globulin 3.6 g/dL 2.7 - 4.2 10/17 [facility] CHEM PANEL A/G Ratio 1.1 0.7 - 1.6 10/17 [facility] CHEM PANEL eGFR 120 10/17 Result Comment: The eGFR is calculated using the CKD-EPI formula. In most young, healthy individuals the eGFR will be >90 mL/ min/1.73m2. The eGFR declines with age. An eGFR of 60-89 may be normal in mL/min/1.7 /2016 some populations, particularly the elderly, for whom the CKD-EPI formula has not been extensively validated. Use of the eGFR is not recommended in the following populations: [facility] 3m2 Individuals with unstable creatinine concentrations, including patients and those with serious co-morbid conditions. Patients with extremes in muscle mass or diet. The data above are obtained from the National Kidney Disease Education Program (NKDEP) which additionally recommends that when the eGFR is used in patients with extremes of body mass index for purposes of drug dosing, the eGFR should be multiplied by the estimated BMI. CHEM PANEL AST 9 unit/L 0 - 37 10/17 [facility] CHEM PANEL ALT 21 unit/L 0 - 65 10/17 [facility] CHEM PANEL Alk Phos 46 unit/L 39 - 136 10/17 [facility] CHEM PANEL Bili Total 0.3 mg/dL 0.2 - 1.3 10/17 [facility] CHEM PANEL CO2 25 meq/L 24 - 32 10/17 [facility] CHEM PANEL Chloride Lvl 109 meq/L 95 - 109 10/17 [facility] CHEM PANEL Calcium Lvl 8.9 mg/dL 8.5 - 10.5 10/17 [facility] CHEM PANEL Albumin Lvl 3.8 g/dL 3.5 - 5.0 10/17 [facility] CHEM PANEL Total 7.4 g/dL 6.4 - 8.4 10/17 [facility] CHEM PANEL Potassium 3.4 meq/L 3.5 - 5.1 10/17 Lvl [facility] CHEM PANEL Sodium Lvl 143 meq/L 135 - 145 10/17 [facility] CHEM PANEL Creatinine 0.59 mg/dL 0.50 - 12 Lvl 1.40 /2015 [facility] CHEM PANEL BUN 12 mg/dL 7 - 22 10/17 /2015 [facility] CHEM PANEL Glucose Lvl 91 mg/dL 70 - 99 12 /2015 [facility] HEMATOLOGY Lymphocytes 2.0 K/CMM 1.0 - 5.5 12/ MH # /2016 [facility] HEMATOLOGY Monocytes # 0.4 K/CMM 0.0 - 0.8 10/17 /2015 [facility] HEMATOLOGY Eosinophils 0.2 K/CMM 0.0 - 0.5 12 MH # /2016 [facility] HEMATOLOGY Lymphocytes 35.9 % 20.0 - 12 MH 40.0 /2015 [facility] HEMATOLOGY Basophils 0.8 % 0.0 - 1.0 10/17 /2015 [facility] HEMATOLOGY Segs-Bands # 3.0 K/CMM 1.5 - 8.1 10/17 /2015 [facility] HEMATOLOGY Monocytes 7.3 % 2.0 - 12.0 10/17 /2015 [facility] HEMATOLOGY Eosinophils 3.4 % 0.0 - 4.0 10/17 /2015 [facility] HEMATOLOGY Segs 52.6 % 45.0 - 12/08 75.0 /2016 [facility] HEMATOLOGY MCV 91.5 fL 80.0 - 10/17 98.0 /2016 [facility] HEMATOLOGY Hct 39.4 % 36.0 - 10/17 48.0 /2016 [facility] HEMATOLOGY RBC 4.31 M/CMM 4.20 - 1208 5.40 /2016 [facility] HEMATOLOGY Hgb 13.4 g/dL 12.0 - 10/17 16.0 /2015 [facility] HEMATOLOGY MPV 8.5 fL 7.4 - 10.4 10/17 [facility] HEMATOLOGY RDW 12.3 % 11.5 - 12 14.5 /2015 [facility] HEMATOLOGY MCH 31.1 pg 27.0 - 12 31.0 /2016 [facility] HEMATOLOGY MCHC 34.0 g/dL 32.0 - 12 36.0 /2015 [facility] HEMATOLOGY Platelet 258 K/CMM 133 - 450 10/17 /2015 [facility] HEMATOLOGY WBC 5.7 K/CMM 3.7 - 10.4 10/17 /2015 [facility] URINE AND UA <=1.0 0.1 - 1.0 10/17 STOOL Urobilinogen mg/dL /2015 [facility] URINE AND UA Color Ltyellow 10/17 [facility] URINE AND UA Glucose Negative Negative 10/17 [facility] mg/dL mg/dL [facility] URINE AND UA Bili Negative Negative 10/17 [facility] *NA* (10/17/16 2:11 PM) URINE AND UA Ketones Negative Negative 10/17 [facility] mg/dL mg/dL [facility] URINE AND UA Leuk Est Negative Negative 10/17 [facility] (10/17/16 2:11 PM) URINE AND UA Sq Epi Occasional Few /LPF 10/17 STOOL /LPF /2015 [facility] URINE AND UA Protein Negative Negative 10/17 [facility] mg/dL mg/dL [facility] URINE AND UA Amorph Occasional None Seen 10/17 STOOL [place] /HPF /HPF [facility] URINE AND UA Nitrite Negative Negative 10/17 (10/17/16 2:11 PM) URINE AND UA Blood Negative Negative 10/17 [facility] (10/17/16 2:11 PM) URINE AND UA WBC null 0 - 5 10/17 [facility] URINE AND UA Turbidity Clear Clear 10/17 [facility] (10/17/16 2:11 PM) URINE AND UA pH 7.0 5.0 - 8.0 10/17 [facility] URINE AND UA Spec Grav 1.016 <=1.030 10/17 [facility] URINE CHEM U Preg Negative Negative 10/17 [facility] (10/17/16 2:11 PM) Renal Renal Stone Patient Name: SHALOM RIGGS 10/17 - Stone CT CT - : 1980; Age: 36 years Female MR: [id number] Read by: Carlos Moran MD Dictated Date/time: 10/17/16 15:12 Study: Renal Stone CT 10/17/2016 2:14 PM [employer] Electronically Signed by : Carlos Moran MD 10/17/16 15:18 FINAL REPORT CLINICAL INDICATION: Abdominal pain, acute CT dlp 1127.95, right flank pain COMPARISON: CT on 04/28/2016 TECHNIQUE: Multidetector CT imaging was performed from the diaphragm through the symphysis with multiplanar reformations obtained without IV contrast. DLP: 1127.95 mGy-cm FINDINGS: Lower thorax: Clear. Hepatobiliary: No focal hepatic lesion. No biliary ductal dilatation. Pancreas: No focal mass or ductal dilatation. Spleen: No splenomegaly. Adrenals: No nodules. Kidneys: Punctate nonobstructive calculus within the mid left kidney. Additional punctate nonobstructive calculi within the inferior right kidney. Prominent bilateral extrarenal pelves. No hydronephrosis. Pelvic organs: Unremarkable uterus and bladder. Peritoneum/Retroperitoneum: No free air or free fluid. Lymph nodes: No lymphadenopathy. Vessels: Unremarkable. Bowel: No significant bowel thickening or dilatation. The appendix is not definitively visualized. Bones and soft tissues: Unremarkable. IMPRESSION: Punctate nonobstructive bilateral renal calculi. SL: [id number] Facial Facial bone PROCEDURE: CT MAXILLOFACIAL WITH CONTRAST 06/15 - bone w w contrast /2015 - [facility] contrast CT INDICATION: Left periorbital soft tissue swelling. . CT COMPARISON: None. Read by: Jose Lennon MD Dictated Date/time: 06/15/16 00:56 Electronically Signed by: Jose Lennon MD 06/15/16 01:02 FINAL REPORT TECHNIQUE: Maxillofacial CT was performed with intravenous contrast ( 100 cc of Omnipaque 300 ). Multiplanar reformats were obtained. COMMENTS: No retrobulbar inflammatory change. Contrast timing limits evaluation of the cavernous sinus. The paranasal sinuses and mastoids are essentially clear. No acute or suspicious findings within the teeth or bones (including the skull base or upper cervical spine). Visualized intracranial contents are grossly unremarkable. IMPRESSION: 1. Left preseptal and periorbital soft tissue swelling/inflammatory changes are present. Though inflammatory changes are slightly more focal lateral to the left orbit, adjacent to the zygoma, a discret e fluid collection with rim enhancement is not present. 2. Mildly enlarged left upper jugular chain lymph nodes may be reactive though nonspecific. SL: [id number] ELECTROLYT AGAP 9.3 meq/L 10.0 - 06/13 ES 20.0 /2015 [facility] ELECTROLYT eGFR 111 06/13 Result Comment: The eGFR is calculated using the CKD-EPI formula. In most young, healthy individuals the eGFR will be >90 mL/ min/1.73m2. The eGFR declines with age. An eGFR of 60-89 may be normal in ES mL/min/1.7 /2015 some populations, particularly the elderly, for whom the CKD-EPI formula has not been extensively validated. Use of the eGFR is not recommended in the following populations: [place] 3m2 Individuals with unstable creatinine concentrations, including patients and those with serious co-morbid conditions. Patients with extremes in muscle mass or diet. The data above are obtained from the National Kidney Disease Education Program (NKDEP) which additionally recommends that when the eGFR is used in patients with extremes of body mass index for purposes of drug dosing, the eGFR should be multiplied by the estimated BMI. ELECTROLYT Glucose Lvl 73 mg/dL 70 - 99 06/13 [facility] ELECTROLYT BUN 15 mg/dL 7 - 22 06/13 [facility] ELECTROLYT Chloride Lvl 108 meq/L 95 - 109 06/13 [facility] ELECTROLYT CO2 27 meq/L 24 - 32 06/13 [facility] ELECTROLYT Creatinine 0.72 mg/dL 0.50 - 06/13 ES Lvl 1.40 [facility] ELECTROLYT Sodium Lvl 141 meq/L 135 - 145 06/13 [facility] ELECTROLYT Potassium 3.3 meq/L 3.5 - 5.1 06/13 ES Lvl /2015 [facility] ELECTROLYT Calcium Lvl 8.4 mg/dL 8.5 - 10.5 06/13 [facility] HEMATOLOGY Monocytes # 0.7 K/CMM 0.0 - 0.8 06/13 [facility] HEMATOLOGY Lymphocytes 2.5 K/CMM 1.0 - 5.5 06/13 [facility] HEMATOLOGY Segs-Bands # 3.7 K/CMM 1.5 - 8.1 06/13 [facility] HEMATOLOGY Eosinophils 0.2 K/CMM 0.0 - 0.5 06/13 [facility] HEMATOLOGY Segs 52.5 % 45.0 - 06/13 75.0 [facility] HEMATOLOGY Basophils 0.5 % 0.0 - 1.0 06/13 [facility] HEMATOLOGY Eosinophils 2.6 % 0.0 - 4.0 06/13 [facility] HEMATOLOGY Monocytes 9.3 % 2.0 - 12.0 06/13 [facility] HEMATOLOGY Lymphocytes 35.1 % 20.0 - 08 40.0 [facility] HEMATOLOGY MPV 8.3 fL 7.4 - 10.4 06/132015 [facility] HEMATOLOGY RBC 4.38 M/CMM 4.20 - 08/ 5.40 /2015 [facility] HEMATOLOGY WBC 7.0 K/CMM 3.7 - 10.4 06/13 [facility] HEMATOLOGY Platelet 324 K/CMM 133 - 450 08 /2015 [facility] HEMATOLOGY MCV 82.2 fL 80.0 - 06/13 98.0 /2015 [facility] HEMATOLOGY Hct 36.0 % 36.0 - 06/13 48.0 /2015 [facility] HEMATOLOGY Hgb 11.9 g/dL 12.0 - 08 16.0 /2015 [facility] HEMATOLOGY RDW 14.3 % 11.5 - 06/13 14.5 /2015 [facility] HEMATOLOGY MCHC 33.1 g/dL 32.0 - 06/13 36.0 /2015 [facility] HEMATOLOGY MCH 27.2 pg 27.0 - 06/13 31.0 [facility] BLOOD BANK Antibody Negative 05/24 RESULTS Scr [facility] (05/23/16 9:20 PM) BLOOD BANK ABO/Rh O POS 05/24 RESULTS /2015 [facility] ELECTROLYT Sodium Lvl 138 meq/L 135 - 145 05/24 ES [facility] ELECTROLYT Creatinine 0.67 mg/dL 0.50 - 05/24 ES Lvl 1. [facility] ELECTROLYT Total 7.8 g/dL 6.4 - 8.4 05/24 ES [facility] ELECTROLYT Chloride Lvl 109 meq/L 95 - 109 05/24 [facility] ELECTROLYT Potassium 5.2 meq/L 3.5 - 5.1 05/24 ES Lvl [facility] ELECTROLYT BUN 11 mg/dL 7 - 22 05/24 ES /2015 [facility] ELECTROLYT Glucose Lvl 87 mg/dL 70 - 99 05/24 ES [facility] ELECTROLYT ALT 18 unit/L 0 - 65 05/24 ES [facility] ELECTROLYT Albumin Lvl 4.0 g/dL 3.5 - 5.0 05/24 ES [facility] ELECTROLYT Calcium Lvl 8.4 mg/dL 8.5 - 10.5 05/24 [facility] ELECTROLYT CO2 25 meq/L 24 - 32 05/24 [facility] ELECTROLYT Alk Phos 53 unit/L 39 - 136 05/24 [facility] ELECTROLYT AST 26 unit/L 0 - 37 05/24 [facility] ELECTROLYT Bili Total 0.3 mg/dL 0.2 - 1.3 05/24 [facility] ELECTROLYT eGFR 116 05/24 Result Comment: The eGFR is calculated using the CKD-EPI formula. In most young, healthy individuals the eGFR will be >90 mL/ min/1.73m2. The eGFR declines with age. An eGFR of 60-89 may be normal in mL/min/1. some populations, particularly the elderly, for whom the CKD-EPI formula has not been extensively validated. Use of the eGFR is not recommended in the following populations: [facility] 3m2 Individuals with unstable creatinine concentrations, including patients and those with serious co-morbid conditions. Patients with extremes in muscle mass or diet. The data above are obtained from the National Kidney Disease Education Program (NKDEP) which additionally recommends that when the eGFR is used in patients with extremes of body mass index for purposes of drug dosing, the eGFR should be multiplied by the estimated BMI. ELECTROLYT AGAP 9.2 meq/L 10.0 - 05/24 ES 20. [facility] ELECTROLYT Globulin 3.8 g/dL 2.0 - 4.0 05/24 [facility] ELECTROLYT B/C Ratio 16 6 - 25 05/24 [facility] ELECTROLYT A/G Ratio 1.1 0.7 - 1.6 05/24 [facility] ENDOCRINOL S Preg Negative Negative 05/24 [facility] *NA* (05/23/16 9:20 PM) HEMATOLOGY Basophils # 0.1 K/CMM 0.0 - 0.2 05/24 [facility] HEMATOLOGY Eosinophils 0.3 K/CMM 0.0 - 0.5 05/24 [facility] HEMATOLOGY Monocytes # 0.5 K/CMM 0.0 - 0.8 05/24 [facility] HEMATOLOGY Lymphocytes 2.1 K/CMM 1.0 - 5.5 05/24 [facility] HEMATOLOGY Segs-Bands # 3.6 K/CMM 1.5 - 8.1 05/24 [facility] HEMATOLOGY Basophils 0.8 % 0.0 - 1.0 05/24 [facility] HEMATOLOGY Eosinophils 4.3 % 0.0 - 4.0 05/24 /2015 [facility] HEMATOLOGY Monocytes 8.1 % 2.0 - 12.0 / MH /2015 [facility] HEMATOLOGY Lymphocytes 32.4 % 20.0 - 05/24 MH 40.0 /2016 [facility] HEMATOLOGY Segs 54.4 % 45.0 - 05/24 MH 75.0 /[address] [facility] MPV 9.0 fL 7.4 - 10.4 05/24 /[address] [facility] Platelet 268 K/CMM 133 - 450 05/24 /[address] [facility] MCHC 32.3 g/dL 32.0 - 05/24 MH 36.0 /[address] [facility] MCV 86.1 fL 80.0 - 05/24 MH 98.0 /[address] [facility] RDW 14.7 % 11.5 - 05/24 14.5 /[address] [facility] MCH 27.8 pg 27.0 - 05/24 31.0 /[address] [facility] Hct 38.2 % 36.0 - 05/24 48.0 /[address] [facility] Hgb 12.3 g/dL 12.0 - 05/[address] [facility] RBC 4.43 M/CMM 4.20 - 05/24 5.40 /[address] [facility] WBC 6.6 K/CMM 3.7 - 10.4 05/24 /[address] [facility] INR 0.95 0.85 - 05/24 1.17 /[address] [facility] PT 13.0 s 12.0 - 05/24 14.7 /[address] [facility] PTT 31.3 s 22.9 - 05/24 35.8 /[address] [facility] Hct 36.0 % 36.0 - 04/29 48.0 /[address] [facility] Hgb 11.6 g/dL 12.0 - 04/29 16.0 /2015 [facility] Abdomen/Pe Abdomen/Pelv Study: Abdomen/Pelvis w IV contrast CT 04/28 [facility] w IV is w IV /2015 - [facility] contrast contrast CT CT Clinical Indication: Rectal bleeding Read by: Kenton Patel MD Dictated Date/time: 04/28/16 14:48 Electronically Signed by: Kenton Patel MD 04/28/16 14:50 FINAL REPORT Comparison: None TECHNIQUE: Multiple axial CT images of the abdomen and pelvis were acquired following the administration of intravenous contrast. Sagittal and coronal reformatted images were performed. CT Radiation Dose DLP 1671.99 mGy-cm FINDINGS: The visualized lung bases are clear bilaterally. The liver, gallbladder, pancreas, spleen, kidneys, and adrenal glands have a normal CT appearance. No intrahepatic or extrahepatic biliary duct dilatation is seen. Urinary bladder is well-distended. Uterus and ovaries are unremarkable. Patient is status post appendectomy. The remaining visualized hollow viscera are unremarkable. No free air, free fluid, or pathologic adenopathy is seen . Bilateral breast implants are noted. Osseous structures are unremarkable. IMPRESSION: 1. No acute intra-abdominal/pelvic abnormality. SL: [id number] HEMATOLOGY MCHC 32.8 g/dL 32.0 - 04/27 MH 36.0 /[address] [facility] Platelet 258 K/CMM 133 - 450 04/27 /[address] [facility] RDW 13.6 % 11.5 - 04/27 MH 14.5 /[address] [facility] MPV 9.2 fL 7.4 - 10.4 04/27 /[address] [facility] MCH 27.9 pg 27.0 - 04/27 MH 31.0 /[address] [facility] RBC 4.50 M/CMM 4.20 - 04/27 MH 5.40 /[address] [facility] WBC 10.3 K/CMM 3.7 - 10.4 04/27 /[address] [facility] Hct 38.3 % 36.0 - 04/27 MH 48.0 /[address] [facility] Hgb 12.6 g/dL 12.0 - 04/27 MH 16.0 /[address] [facility] MCV 85.0 fL 80.0 - 04/27 MH 98.0 /[address] [facility] Monocytes # 0.6 K/CMM 0.0 - 0.8 18 MH /[address] [facility] Lymphocytes 1.3 K/CMM 1.0 - 5.5 /18 MH # /[address] [facility] Segs-Bands # 8.2 K/CMM 1.5 - 8.1 18 /[address] [facility] Basophils # 0.1 K/CMM 0.0 - 0.2 /18 /[address] [facility] Eosinophils 0.1 K/CMM 0.0 - 0.5 /18 MH # /[address] [facility] Segs 79.6 % 45.0 - 04/27 MH 75.0 /[address] [facility] Lymphocytes 12.9 % 20.0 - 04/27 MH 40.0 /2016 [facility] HEMATOLOGY Basophils 0.8 % 0.0 - 1.0 04/27 [facility] HEMATOLOGY Monocytes 6.1 % 2.0 - 12.0 04/27 [facility] HEMATOLOGY Eosinophils 0.6 % 0.0 - 4.0 04/27 [facility] Abdomen AP Abdomen AP Study: Abdomen, 2 views 04/26 - DX DX /2015 - [facility] Clinical Indication: Diffuse abdominal pain Read by: Kenton Patel MD Dictated Date/time: 04/26/16 21:56 Electronically Signed by: Kenton Patel MD 04/26/16 21:56 FINAL REPORT Comparison: None FINDINGS: 2 views of the abdomen show a nonobstructive bowel gas pattern with mildly dilated air-filled loops of large bowel. Surgical clips in the right lower quadrant are seen. Osseous structures are unremarkable. IMPRESSION: Nonobstructive bowel gas pattern. SL: [id number] HEMATOLOGY Segs 48.3 % 45.0 - 04/25 75.0 /2015 [facility] HEMATOLOGY Monocytes 9.2 % 2.0 - 12.0 04/25 /2015 [facility] HEMATOLOGY Basophils 0.8 % 0.0 - 1.0 04/25 /2015 [facility] HEMATOLOGY Lymphocytes 37.4 % 20.0 - 04/25 40.0 /2015 [facility] HEMATOLOGY Eosinophils 4.3 % 0.0 - 4.0 04/25 /2015 [facility] HEMATOLOGY Segs-Bands # 2.8 K/CMM 1.5 - 8.1 04/25 /[address] [facility] Monocytes # 0.5 K/CMM 0.0 - 0.8 04/25 /2015 [facility] HEMATOLOGY Lymphocytes 2.2 K/CMM 1.0 - 5.5 / MH # /2016 [facility] HEMATOLOGY Eosinophils 0.3 K/CMM 0.0 - 0.5 04/25 MH # /2016 [facility] HEMATOLOGY Platelet 240 K/CMM 133 - 450 04/25 /2015 [facility] HEMATOLOGY RDW 13.4 % 11.5 - 04/25 14.5 /[address] [facility] MPV 8.7 fL 7.4 - 10.4 04/25 /[address] [facility] MCHC 32.8 g/dL 32.0 - 04/25 36.0 /[address] [facility] MCH 27.8 pg 27.0 - 04/25 31.0 /[address] [facility] WBC 5.9 K/CMM 3.7 - 10.4 04/25 /[address] [facility] RBC 4.15 M/CMM 4.20 - 04/25 5.40 /[address] [facility] Hgb 11.6 g/dL 12.0 - 04/25 16.0 /[address] [facility] Hct 35.2 % 36.0 - 04/25 48.0 /[address] [facility] MCV 84.9 fL 80.0 - 04/25 98.0 /[address] [facility] vWF Assay 98 % 45 - 140 04/[address] [facility] vW Interp von 04/25 Willebrand [facility] panel shows no decrease in any components (Factor VIII, vWF antigen and functional ).Impressi on: no evidence of von Willebrand disease (except for post-infus ion level in patients with known disease).C PT: [id number] HEMATOLOGY Factor VIII 145 % 50 - 242 04/[address] [facility] vWF Antigen 117 % 45 - 165 04/25 [facility] HEMATOLOGY Interp See Note 1 04/25 Result (EPI/ADP) Comment: No [facility] (04/24/16 7:05 PM) evidence of significant platelet dysfunction by the PFA-100 test. If a bleeding disorder is suspected clinically, recommend repeat testing. If normal platelet function is confirmed, consider testing for factor deficiencies and/or more detailed platelet aggregation/r elease studies. Thienopyridin es (Ticlid, Plavix) may not produce a significant prolongation of the PFA-100 closure time; patients receiving these medications should be assessed using the Verify Now assay. HEMATOLOGY Plt Function 114 s 56 - 102 04/25 Collagen/ADP [facility] Plt Function 142 s 80 - 184 04/25 Collagen/Epi /[address] [facility] Fibrinogen 342 mg/dL 230 - 510 04/25 Lvl /[address] [facility] PTT 38.9 s 22.9 - 04/25 35.8 /[address] [facility] INR 1.02 0.85 - 04/25 1.17 /[address] [facility] PT 13.7 s 12.0 - 04/25 14.7 /2016 [facility] CHEM PANEL eGFR 126 04/22 Result Comment: The eGFR is calculated using the CKD-EPI formula. In most young, healthy individuals the eGFR will be >90 mL/ min/1.73m2. The eGFR declines with age. An eGFR of 60-89 may be normal in mL/min/1.7 /2016 some populations, particularly the elderly, for whom the CKD-EPI formula has not been extensively validated. Use of the eGFR is not recommended in the following populations: [address] Individuals with unstable creatinine concentrations, including patients and those with serious co-morbid conditions. Patients with extremes in muscle mass or diet. The data above are obtained from the National Kidney Disease Education Program (NKDEP) which additionally recommends that when the eGFR is used in patients with extremes of body mass index for purposes of drug dosing, the eGFR should be multiplied by the estimated BMI. CHEM PANEL Albumin Lvl 3.6 g/dL 3.5 - 5.0 04/22 [facility] CHEM PANEL Total 6.6 g/dL 6.4 - 8.4 04/22 [facility] CHEM PANEL Globulin 3.0 g/dL 2.0 - 4.0 04/22 [facility] CHEM PANEL B/C Ratio 25 6 - 25 04/22 [facility] CHEM PANEL Bili Total 0.6 mg/dL 0.2 - 1.3 04/22 [facility] CHEM PANEL Alk Phos 41 unit/L 39 - 136 04/22 [facility] CHEM PANEL AST 8 unit/L 0 - 37 04/22 [facility] CHEM PANEL Calcium Lvl 7.9 mg/dL 8.5 - 10.5 04/22 [facility] CHEM PANEL ALT 17 unit/L 0 - 65 04/22 [facility] CHEM PANEL A/G Ratio 1.2 0.7 - 1.6 04/22 [facility] CHEM PANEL Potassium 3.5 meq/L 3.5 - 5.1 04/22 Lvl [facility] CHEM PANEL CO2 23 meq/L 24 - 32 04/22 [facility] CHEM PANEL Chloride Lvl 112 meq/L 95 - 109 04/22 [facility] CHEM PANEL Sodium Lvl 140 meq/L 135 - 145 04/22 [facility] CHEM PANEL AGAP 8.5 meq/L 10.0 - 04/22 MH 20.0 [facility] CHEM PANEL BUN 13 mg/dL 7 - 22 04/22 [facility] CHEM PANEL Glucose Lvl 83 mg/dL 70 - 99 04/22 [facility] CHEM PANEL Creatinine 0.52 mg/dL 0.50 - 04/22 Lvl 1.40 /2015 [facility] HEMATOLOGY Eosinophils 0.3 K/CMM 0.0 - 0.5 04/22 MH # /2015 [facility] [facility] HEMATOLOGY Monocytes # 0.6 K/CMM 0.0 - 0.8 04/22 /2015 [facility] HEMATOLOGY Lymphocytes 3.0 K/CMM 1.0 - 5.5 04/22 MH # /2015 [facility] HEMATOLOGY Segs-Bands # 3.2 K/CMM 1.5 - 8.1 04/22 /2015 [facility] HEMATOLOGY Basophils 0.6 % 0.0 - 1.0 04/22 /2015 [facility] HEMATOLOGY Eosinophils 4.2 % 0.0 - 4.0 04/22 /2015 [facility] HEMATOLOGY Monocytes 8.8 % 2.0 - 12.0 04/22 [facility] HEMATOLOGY Lymphocytes 41.6 % 20.0 - 04/22 40.0 /2015 [facility] HEMATOLOGY Segs 44.8 % 45.0 - 04/22 75.0 /2015 [facility] HEMATOLOGY MPV 8.7 fL 7.4 - 10.4 04/22 /2015 [facility] HEMATOLOGY Platelet 237 K/CMM 133 - 450 04/22 /2015 [facility] HEMATOLOGY RDW 13.3 % 11.5 - 04/22 14.5 /2015 [facility] HEMATOLOGY MCHC 32.7 g/dL 32.0 - 04/22 36.0 /2015 [facility] HEMATOLOGY MCH 27.9 pg 27.0 - 04/22 31.0 /2015 [facility] HEMATOLOGY MCV 85.3 fL 80.0 - 04/22 98.0 /2015 [facility] HEMATOLOGY WBC 7.1 K/CMM 3.7 - 10.4 04/22 /2015 [facility] HEMATOLOGY RBC 4.13 M/CMM 4.20 - 04/22 5.40 /2015 [facility] URINE AND UA <=1.0 0.1 - 1.0 04/22 STOOL Urobilinogen mg/dL /2015 [facility] URINE AND UA Mucus Few /LPF None Seen 04/22 STOOL /LPF /2015 [facility] URINE AND UA WBC 28 /HPF 0 - 5 04/22 STOOL /2016 [facility] URINE AND UA Bacteria Occasional None Seen 04/22 STOOL /HPF /HPF /2015 [facility] URINE AND UA RBC null 0 - 2 04/22 STOOL /2016 [facility] URINE AND UA Bili Negative Negative 04/22 [facility] *NA* (04/21/16 11:53 PM) URINE AND UA Sq Epi Occasional Few /LPF 04/22 STOOL /LPF /2015 [facility] URINE AND UA Nitrite Negative Negative 04/22 [facility] (04/21/16 11:53 PM) URINE AND UA Blood Large Negative 04/22 [facility] *ABN* (04/21/16 11:53 PM) URINE AND UA Leuk Est Moderate Negative 04/22 *ABN* (04/21/16 11:53 PM) URINE AND UA Ketones Negative Negative 04/22 STOOL mg/dL mg/dL URINE AND UA pH 5.0 5.0 - 8.0 04/22 [facility] URINE AND UA Spec Grav 1.023 <=1.030 04/22 [facility] URINE AND UA Glucose Negative Negative 04/22 STOOL mg/dL mg/dL URINE AND UA Protein 30 mg/dL Negative 04/22 STOOL mg/dL [facility] URINE AND UA Turbidity Slight Clear 04/22 [facility] *ABN* (04/21/16 11:53 PM) URINE AND UA Color Yellow Yellow 04/22 [facility] *NA* (04/21/16 11:53 PM) URINE CHEM U Preg Negative Negative 04/22 [facility] (04/21/16 11:53 PM) CHEM PANEL Amylase Lvl 79 unit/L 25 - 115 04/22 [facility] CHEM PANEL Lipase Lvl 335 unit/L 73 - 393 04/22 [facility] CHEM PANEL B/C Ratio 22 6 - 25 04/22 [facility] CHEM PANEL AGAP 10.7 meq/L 10.0 - 04/22 20.0 [facility] CHEM PANEL A/G Ratio 1.2 0.7 - 1.6 04/22 [facility] CHEM PANEL Globulin 3.3 g/dL 2.0 - 4.0 04/22 [facility] CHEM PANEL eGFR 117 04/22 Result Comment: The eGFR is calculated using the CKD-EPI formula. In most young, healthy individuals the eGFR will be >90 mL/ min/1.73m2. The eGFR declines with age. An eGFR of 60-89 may be normal in mL/min/1.7 /2016 some populations, particularly the elderly, for whom the CKD-EPI formula has not been extensively validated. Use of the eGFR is not recommended in the following populations: [facility] 3m2 Individuals with unstable creatinine concentrations, including patients and those with serious co-morbid conditions. Patients with extremes in muscle mass or diet. The data above are obtained from the National Kidney Disease Education Program (NKDEP) which additionally recommends that when the eGFR is used in patients with extremes of body mass index for purposes of drug dosing, the eGFR should be multiplied by the estimated BMI. CHEM PANEL CO2 26 meq/L 24 - 32 04/22 [facility] CHEM PANEL Chloride Lvl 108 meq/L 95 - 109 04/22 [facility] CHEM PANEL Potassium 3.7 meq/L 3.5 - 5.1 04/22 Lvl [facility] CHEM PANEL Total 7.3 g/dL 6.4 - 8.4 04/22 [facility] CHEM PANEL Calcium Lvl 8.5 mg/dL 8.5 - 10.5 04/22 [facility] CHEM PANEL Albumin Lvl 4.0 g/dL 3.5 - 5.0 04/22 [facility] CHEM PANEL Bili Total 0.2 mg/dL 0.2 - 1.3 04/22 [facility] CHEM PANEL Alk Phos 46 unit/L 39 - 136 04/22 [facility] CHEM PANEL AST 13 unit/L 0 - 37 04/22 [facility] CHEM PANEL ALT 17 unit/L 0 - 65 04/22 [facility] CHEM PANEL Glucose Lvl 86 mg/dL 70 - 99 04/22 [facility] CHEM PANEL Creatinine 0.65 mg/dL 0.50 - 04/22 Lvl 1.40 [facility] CHEM PANEL Sodium Lvl 141 meq/L 135 - 145 04/22 [facility] CHEM PANEL BUN 14 mg/dL 7 - 22 04/22 [facility] CHEM PANEL eGFR 116 03/31 Result Comment: The eGFR is calculated using the CKD-EPI formula. In most young, healthy individuals the eGFR will be >90 mL/ min/1.73m2. The eGFR declines with age. An eGFR of 60-89 may be normal in mL/min/1.7 some populations, particularly the elderly, for whom the CKD-EPI formula has not been extensively validated. Use of the eGFR is not recommended in the following populations: [facility] 3m2 Individuals with unstable creatinine concentrations, including patients and those with serious co-morbid conditions. Patients with extremes in muscle mass or diet. The data above are obtained from the National Kidney Disease Education Program (NKDEP) which additionally recommends that when the eGFR is used in patients with extremes of body mass index for purposes of drug dosing, the eGFR should be multiplied by the estimated BMI. CHEM PANEL Calcium Lvl 8.4 mg/dL 8.5 - 10.5 03/31 [facility] CHEM PANEL CO2 28 meq/L 24 - 32 03/31 [facility] CHEM PANEL Creatinine 0.66 mg/dL 0.50 - 03/31 MH Lvl 1.40 [facility] CHEM PANEL BUN 10 mg/dL 7 - 03/31 [facility] CHEM PANEL Glucose Lvl 87 mg/dL 70 - 99 03/31 [facility] CHEM PANEL Potassium 4.0 meq/L 3.5 - 5.1 03/31 Lvl /2015 [facility] CHEM PANEL Sodium Lvl 141 meq/L 135 - 145 03/31 [facility] CHEM PANEL Chloride Lvl 107 meq/L 95 - 109 03/31 [facility] CHEM PANEL AGAP 10.0 meq/L 10.0 - 03/31 MH 20.0 [facility] ENDOCRINOL S Preg Negative Negative 03/31 OG [facility] *NA* (03/31/16 4:09 PM) HEMATOLOGY Eosinophils 0.3 K/CMM 0.0 - 0.5 03/31 MH # /2016 [facility] HEMATOLOGY Monocytes # 0.7 K/CMM 0.0 - 0.8 03/31 [facility] HEMATOLOGY Lymphocytes 1.7 K/CMM 1.0 - 5.5 03/31 MH # /2016 [facility] HEMATOLOGY Segs 74.8 % 45.0 - 03/31 MH 75.0 [facility] HEMATOLOGY Eosinophils 2.4 % 0.0 - 4.0 03/31 [facility] HEMATOLOGY Lymphocytes 15.9 % 20.0 - 03/31 MH 40.0 [facility] HEMATOLOGY Segs-Bands # 8.1 K/CMM 1.5 - 8.1 03/31 [facility] HEMATOLOGY Basophils 0.4 % 0.0 - 1.0 03/31 [facility] HEMATOLOGY Monocytes 6.5 % 2.0 - 12.0 03/31 [facility] HEMATOLOGY INR 0.90 0.85 - 03/31 MH 1.17 /2015 [facility] HEMATOLOGY PTT 35.4 s 22.9 - 03/31 MH 35.8 /2015 [facility] HEMATOLOGY PT 12.5 s 12.0 - 03/[address] [facility] Hgb 12.2 g/dL 12.0 - 03/31 MH 16.0 /[address] [facility] RBC 4.31 M/CMM 4.20 - 03/31 MH 5.40 /2015 [facility] HEMATOLOGY WBC 10.9 K/CMM 3.7 - 10.4 03/31 [facility] HEMATOLOGY RDW 12.8 % 11.5 - 03/[address] [facility] Platelet 307 K/CMM 133 - 450 03/[address] [facility] MPV 8.4 fL 7.4 - 10.4 03/[address] [facility] Hct 37.1 % 36.0 - 03/31 48.0 /[address] [facility] MCHC 32.9 g/dL 32.0 - 03/[address] [facility] MCV 86.0 fL 80.0 - 03/31 98.0 /[address] [facility] MCH 28.3 pg 27.0 - 03/31 31.0 [facility] URINE CHEM U Preg Negative Negative 03/27 [facility] (03/27/16 1:15 PM) CHEM PANEL Creatinine 0.77 mg/dL 0.50 - 03/14 Lvl 1.40 [facility] CHEM PANEL Sodium Lvl 139 meq/L 135 - 145 03/14 [facility] CHEM PANEL BUN 17 mg/dL 7 - 03/14 [facility] CHEM PANEL eGFR 101 03/14 Result Comment: The eGFR is calculated using the CKD-EPI formula. In most young, healthy individuals the eGFR will be >90 mL/ min/1.73m2. The eGFR declines with age. An eGFR of 60-89 may be normal in mL/min/1. some populations, particularly the elderly, for whom the CKD-EPI formula has not been extensively validated. Use of the eGFR is not recommended in the following populations: [facility] 3m2 Individuals with unstable creatinine concentrations, including patients and those with serious co-morbid conditions. Patients with extremes in muscle mass or diet. The data above are obtained from the National Kidney Disease Education Program (NKDEP) which additionally recommends that when the eGFR is used in patients with extremes of body mass index for purposes of drug dosing, the eGFR should be multiplied by the estimated BMI. CHEM PANEL CO2 32 meq/L 24 - 32 03/14 [facility] CHEM PANEL Calcium Lvl 8.6 mg/dL 8.5 - 10.5 03/14 [facility] CHEM PANEL Chloride Lvl 100 meq/L 95 - 109 03/14 [facility] CHEM PANEL Potassium 3.1 meq/L 3.5 - 5.1 03/14 Lvl /2015 [facility] CHEM PANEL Glucose Lvl 85 mg/dL 70 - 99 03/14 [facility] CHEM PANEL AGAP 10.1 meq/L 10.0 - 03/14 20.0 [facility] HEMATOLOGY Hgb 13.1 g/dL 12.0 - 03/14 16.0 [facility] HEMATOLOGY Hct 39.7 % 36.0 - 03/14 48.0 [facility] URINE AND UA Color Colorless 03/14 STOOL [facility] URINE AND UA Bili Negative Negative 03/14 STOOL [facility] *NA* (03/14/16 9:26 AM) URINE AND UA 2.0 mg/dL 0.1 - 1.0 03/14 STOOL Urobilinogen /2015 URINE AND UA Blood Negative Negative 03/14 STOOL [facility] (03/14/16 9:26 AM) URINE AND UA Protein Negative Negative 03/14 STOOL mg/dL mg/dL [facility] URINE AND UA Sq Epi None Seen 03/14 STOOL URINE AND UA Glucose Negative Negative 03/14 STOOL mg/dL mg/dL URINE AND UA Ketones Negative Negative 03/14 STOOL mg/dL mg/dL [facility] URINE AND UA Leuk Est Negative Negative 03/14 STOOL [facility] (03/14/16 9:26 AM) URINE AND UA Nitrite Negative Negative 03/14 STOOL [facility] (03/14/16 9:26 AM) URINE AND UA RBC 2 /HPF 0 - 2 03/14 STOOL [facility] URINE AND UA WBC null 0 - 5 03/14 STOOL [facility] URINE AND UA Bacteria Occasional None Seen 03/14 STOOL /HPF /HPF /2015 [facility] URINE AND UA pH 6.0 5.0 - 8.0 03/14 [facility] URINE AND UA Spec Grav 1.008 <=1.030 03/14 URINE AND UA Turbidity Clear Clear 03/14 (03/14/16 9:26 AM) URINE CHEM U Preg Negative Negative 03/14 [facility] (03/14/16 9:26 AM) Spine Spine Study: Spine cervical comp w obl-flx/ext DX (7 views) 12/30 - cervical cervical - comp w comp w Age: 35 years y/o Female obl-flx/ex obl-flx/ext t DX DX Read by: Carrington Lubin MD Dictated Date/time: 12/30/15 20:05 Clinical Indication: Pain Post Trauma; looking for pos ligamentious injury Electronically Signed by: Carrington Lubin MD 20:08 FINAL REPORT Comparison: None Findings: Examination of the cervical spine has been performed to include AP, lateral, flexion, extension, right oblique, left oblique, odontoid and SMV projections. The cervical alignment appears stable in flexion and extension. The predens space is within normal limits and consistent. Oblique view show satisfactory alignment. The right neural foramina are widely p atent. The left-sided neural foramina are not well imaged on 2 attempts but are probably normal in this young patient with no significant degenerative change. The odontoid is intact. The prevertebral soft tissues show no swelling. : IMPRESSION: Negative study. SL: [id number] Spine Spine Patient Name: SHALOM RIGGS 12/30 - cervical cervical - wo contrast CT : 1980; Age: 35 years y/o Female contrast (ER) CT (ER) MR: [id number] Read by: Mark Saucedo MD Dictated Date/time: 12/30/15 17:43 Electronically Signed by: Mark Saucedo MD 12/30/15 17:45 FINAL REPORT Study: Spine cervical wo contrast CT (ER) 12/30/2015 4:29 PM [employer] Ordering Physician: Adolfo Goodwin Clinical Indication: Pain Post Trauma; neck pain for 4 days after trampoline accident. Comparison: None Technique: Noncontrast axial images of the cervical spine are provided. Coronal and sagittal reformats are done FINDINGS: No fracture or dislocation is seen. No acute soft tissue abnormality seen. Bilateral lung apices are clear. IMPRESSION: 1. No fracture or dislocation seen. 2. Reversal of cervical spine lordosis may be related to cervical strain or positional in nature. SL: [id number] Vital Signs Vital Sign Value Date Comments Source Respitory Rate 18 04/09/2018 [facility] Heart Rate 86 04/09/2018 [facility] Systolic (mm Hg) 130 04/09/2018 [facility] Diastolic (mm Hg) 84 04/09/2018 [facility] Temperature Oral (F) 98.8 F 04/09/2018 [facility] Systolic (mm Hg) 134 04/09/2018 [facility] Diastolic (mm Hg) 87 04/09/2018 [facility] Respitory Rate 18 04/09/2018 [facility] Temperature Oral (F) 98.7 F 04/09/2018 [facility] Heart Rate 83 04/09/2018 [facility] Systolic (mm Hg) 127 04/09/2018 [facility] Diastolic (mm Hg) 76 04/09/2018 [facility] Respitory Rate 15 04/09/2018 [facility] Heart Rate 84 04/09/2018 [facility] Temperature Oral (F) 98.3 F 04/09/2018 [facility] Height 165.1 cm 04/08/2018 [facility] Height 165.1 cm 04/08/2018 [facility] Weight 81.534 04/08/2018 [facility] BMI Calculated 29.91 04/08/2018 [facility] Height 165.1 cm 04/08/2018 [facility] BMI Calculated 29.09 04/08/2018 [facility] Weight 79.3 04/08/2018 [facility] Temperature Oral (F) 98.2 F 03/22/2018 [facility] Heart Rate 66 03/22/2018 [facility] Respitory Rate 18 03/22/2018 [facility] Systolic (mm Hg) 120 03/22/2018 [facility] Diastolic (mm Hg) 83 03/22/2018 [facility] Temperature Oral (F) 98.4 F 03/22/2018 [facility] Systolic (mm Hg) 112 03/22/2018 [facility] Diastolic (mm Hg) 82 03/22/2018 [facility] Heart Rate 69 03/22/2018 [facility] Respitory Rate 18 03/22/2018 [facility] Respitory Rate 16 03/22/2018 [facility] Systolic (mm Hg) 99 03/22/2018 [facility] Diastolic (mm Hg) 53 03/22/2018 [facility] Temperature Oral (F) 97.8 F 03/22/2018 [facility] Heart Rate 71 03/22/2018 [facility] BMI Calculated 30.02 03/21/2018 [facility] Height 165.1 cm 03/21/2018 [facility] Weight 81.818 03/21/2018 [facility] Weight 81.818 03/21/2018 [facility] Systolic (mm Hg) 116 03/18/2018 [facility] Diastolic (mm Hg) 71 03/18/2018 [facility] Respitory Rate 16 03/18/2018 [facility] Heart Rate 78 03/18/2018 [facility] Temperature Oral (F) 98.3 F 03/18/2018 [facility] Heart Rate 54 03/18/2018 [facility] Systolic (mm Hg) 149 03/18/2018 [facility] Diastolic (mm Hg) 105 03/18/2018 [facility] Systolic (mm Hg) 153 03/18/2018 [facility] Diastolic (mm Hg) 103 03/18/2018 [facility] Respitory Rate 16 03/18/2018 [facility] Temperature Oral (F) 98.3 F 03/18/2018 [facility] Heart Rate 82 03/18/2018 [facility] Temperature Oral (F) 98.6 F 03/18/2018 [facility] Respitory Rate 22 03/18/2018 [facility] BMI Calculated 30.02 03/15/2018 [facility] Weight 81.818 03/15/2018 [facility] Height 165.1 cm 03/15/2018 [facility] Systolic (mm Hg) 118 03/12/2018 [facility] Diastolic (mm Hg) 95 03/12/2018 [facility] Respitory Rate 20 03/12/2018 [facility] Systolic (mm Hg) 132 03/12/2018 [facility] Diastolic (mm Hg) 94 03/12/2018 [facility] Respitory Rate 15 03/12/2018 [facility] Respitory Rate 14 03/12/2018 [facility] Systolic (mm Hg) 111 03/12/2018 [facility] Diastolic (mm Hg) 86 03/12/2018 [facility] Heart Rate 110 03/06/2018 [facility] Temperature Oral (F) 98.2 F 03/06/2018 [facility] Height 165.1 cm 03/06/2018 [facility] Weight 84.091 03/06/2018 [facility] BMI Calculated 30.85 03/06/2018 [facility] BMI Calculated 28.77 03/05/[facility] Weight 78.409 03/05/2018 [facility] Temperature Oral (F) 98.6 F 03/05/2018 [facility] Systolic (mm Hg) 151 03/05/2018 [facility] Diastolic (mm Hg) 103 03/05/2018 [facility] Heart Rate 93 03/05/2018 [facility] Height 165.1 cm 03/05/2018 [facility] Respitory Rate 18 02/20/2018 [facility] Systolic (mm Hg) 129 02/20/2018 [facility] Diastolic (mm Hg) 97 02/20/2018 [facility] Heart Rate 102 02/20/2018 [facility] Heart Rate 89 02/20/2018 [facility] Respitory Rate 20 02/20/2018 [facility] Systolic (mm Hg) 123 02/20/2018 [facility] Diastolic (mm Hg) 94 02/20/2018 [facility] Respitory Rate 20 02/20/2018 [facility] Heart Rate 110 02/20/2018 [facility] Height 165.1 cm 02/20/2018 [facility] Systolic (mm Hg) 147 02/20/2018 [facility] Diastolic (mm Hg) 116 02/20/2018 [facility] Weight 77.2 02/20/2018 [facility] BMI Calculated 28.32 02/20/2018 [facility] Temperature Oral (F) 98.6 F 02/20/2018 [facility] Height 165.1 cm 12/24/2017 [facility] Weight 76.42 12/24/2017 [facility] BMI Calculated 28.04 12/24/2017 [facility] Heart Rate 85 12/24/2017 [facility] Temperature Oral (F) 98.5 F 12/24/2017 [facility] Systolic (mm Hg) 144 12/24/2017 [facility] Diastolic (mm Hg) 101 12/24/2017 [facility] Respitory Rate 16 12/22/2017 [facility] Heart Rate 88 12/22/2017 [facility] Systolic (mm Hg) 144 12/22/2017 [facility] Diastolic (mm Hg) 82 12/22/2017 [facility] Respitory Rate 18 12/22/2017 [facility] Heart Rate 96 12/22/2017 [facility] Systolic (mm Hg) 143 12/22/2017 [facility] Diastolic (mm Hg) 95 12/22/2017 [facility] Respitory Rate 20 12/22/2017 [facility] Heart Rate 116 12/22/2017 [facility] Systolic (mm Hg) 137 12/22/2017 [facility] Diastolic (mm Hg) 99 12/22/2017 [facility] Temperature Oral (F) 98.2 F 12/22/2017 [facility] Weight 79.545 12/22/2017 [facility] BMI Calculated 29.18 12/22/2017 [facility] Temperature Oral (F) 99.0 F 12/22/2017 [facility] Height 165.1 cm 12/22/2017 [facility] Height 165.1 cm 12/04/2017 [facility] Heart Rate 128 12/04/2017 [facility] Temperature Oral (F) 98.5 F 12/04/2017 [facility] Systolic (mm Hg) 162 12/04/2017 [facility] Diastolic (mm Hg) 120 12/04/2017 [facility] Weight 73.665 12/04/2017 [facility] BMI Calculated 27.03 12/04/2017 [facility] Systolic (mm Hg) 123 11/26/2017 [facility] Diastolic (mm Hg) 79 11/26/2017 [facility] Respitory Rate 14 11/26/2017 [facility] Heart Rate 60 11/26/2017 [facility] Temperature Oral (F) 98.6 F 11/26/2017 [facility] Systolic (mm Hg) 118 11/26/2017 [facility] Diastolic (mm Hg) 75 11/26/2017 [facility] Respitory Rate 16 11/26/2017 [facility] Heart Rate 67 11/26/2017 [facility] Temperature Oral (F) 98.6 F 11/26/2017 [facility] Heart Rate 61 11/26/2017 [facility] Temperature Oral (F) 98.3 F 11/26/2017 [facility] Respitory Rate 16 11/26/2017 [facility] Systolic (mm Hg) 116 11/26/2017 [facility] Diastolic (mm Hg) 79 11/26/2017 [facility] Weight 80.955 11/23/2017 [facility] Height 165.1 cm 11/21/2017 [facility] BMI Calculated 30.02 11/21/2017 [facility] Weight 81.818 11/21/2017 [facility] BMI Calculated 30.02 11/20/2017 [facility] Height 165.1 cm 11/20/2017 [facility] Weight 81.818 11/20/2017 [facility] Temperature Oral (F) 97.1 F 07/05/2017 [facility] Heart Rate 78 07/05/2017 [facility] Systolic (mm Hg) 118 07/05/2017 [facility] Diastolic (mm Hg) 82 07/05/2017 [facility] Respitory Rate 18 07/05/2017 [facility] Respitory Rate 18 07/05/2017 [facility] Systolic (mm Hg) 121 07/05/2017 [facility] Diastolic (mm Hg) 83 07/05/2017 [facility] Heart Rate 77 07/05/2017 [facility] Temperature Oral (F) 98.2 F 07/05/2017 [facility] Systolic (mm Hg) 151 07/05/2017 [facility] Diastolic (mm Hg) 92 07/05/2017 [facility] [facility] (F) 97.4 F 07/05/2017 [facility] Heart Rate 66 07/05/2017 [facility] Respitory Rate 18 07/05/2017 [facility] Weight 81.818 07/05/2017 [facility] Weight 81.818 07/05/2017 [facility] BMI Calculated 30.02 07/05/2017 [facility] Height 165.1 cm 07/05/2017 [facility] Heart Rate 70 03/27/2017 [facility] Respitory Rate 18 03/27/2017 [facility] Systolic (mm Hg) 136 03/27/2017 [facility] Diastolic (mm Hg) 93 03/27/2017 [facility] Temperature Oral (F) 98.1 F 03/27/2017 [facility] Height 165.1 cm 03/27/2017 [facility] Weight 75 03/27/2017 [facility] BMI Calculated 27.51 03/27/2017 [facility] Heart Rate 94 03/27/2017 [facility] Respitory Rate 17 03/27/2017 [facility] Temperature Oral (F) 98.4 F 03/27/2017 [facility] Systolic (mm Hg) 155 03/27/2017 [facility] Diastolic (mm Hg) 111 03/27/2017 [facility] Heart Rate 94 01/27/2017 [facility] Systolic (mm Hg) 144 01/27/2017 [facility] Diastolic (mm Hg) 100 01/27/2017 [facility] Temperature Oral (F) 98.2 F 01/27/2017 [facility] Systolic (mm Hg) 140 01/27/2017 [facility] Diastolic (mm Hg) 102 01/27/2017 [facility] Heart Rate 105 01/27/2017 [facility] Temperature Oral (F) 98.4 F 01/27/2017 [facility] Heart Rate 92 01/27/2017 [facility] Systolic (mm Hg) 151 01/27/2017 [facility] Diastolic (mm Hg) 109 01/27/2017 [facility] Temperature Oral (F) 98.3 F 01/27/2017 [facility] Respitory Rate 18 01/27/2017 [facility] Respitory Rate 16 01/27/2017 [facility] Respitory Rate 16 01/27/2017 [facility] BMI Calculated 26.18 01/24/2017 [facility] Weight 71.364 01/24/2017 [facility] Height 165.1 cm 01/24/2017 [facility] Height 165.1 cm 01/24/2017 [facility] Weight 71.364 01/24/2017 [facility] BMI Calculated 26.18 01/24/2017 [facility] Temperature Oral (F) 97.7 F 01/23/2017 [facility] Respitory Rate 18 01/23/2017 [facility] Systolic (mm Hg) 122 01/23/2017 [facility] Diastolic (mm Hg) 80 01/23/2017 [facility] Heart Rate 87 01/23/2017 [facility] Heart Rate 98 01/23/2017 [facility] Temperature Oral (F) 97.9 F 01/23/2017 [facility] Systolic (mm Hg) 129 01/23/2017 [facility] Diastolic (mm Hg) 88 01/23/2017 [facility] Respitory Rate 18 01/23/2017 [facility] Heart Rate 112 01/23/2017 [facility] Temperature Oral (F) 98.4 F 01/23/2017 [facility] Respitory Rate 20 01/23/2017 [facility] Systolic (mm Hg) 130 01/23/2017 [facility] Diastolic (mm Hg) 88 01/23/2017 [facility] Height 165.1 cm 01/23/2017 [facility] Weight 71.364 01/23/2017 [facility] BMI Calculated 26.18 01/23/2017 [facility] Heart Rate 89 11/22/2016 [facility] Respitory Rate 18 11/22/2016 [facility] Systolic (mm Hg) 146 11/22/2016 [facility] Diastolic (mm Hg) 80 11/22/2016 [facility] Temperature Oral (F) 98.2 F 11/22/2016 [facility] Height 165.1 cm 11/22/2016 [facility] BMI Calculated 30.02 11/22/2016 [facility] Weight 81.818 11/22/2016 [facility] Height 165.1 cm 11/22/2016 [facility] Weight 81.818 11/22/2016 [facility] BMI Calculated 30.02 11/22/2016 [facility] Respitory Rate 20 11/22/2016 [facility] Temperature Oral (F) 98.4 F 11/22/2016 [facility] Systolic (mm Hg) 158 11/22/2016 [facility] Diastolic (mm Hg) 117 11/22/2016 [facility] Heart Rate 116 11/22/2016 [facility] Systolic (mm Hg) 154 10/31/2016 [facility] Diastolic (mm Hg) 74 10/31/2016 [facility] Heart Rate 80 10/31/2016 [facility] Respitory Rate 18 10/31/2016 [facility] Temperature Oral (F) 98.7 F 10/31/2016 [facility] Heart Rate 94 10/31/2016 [facility] Respitory Rate 20 10/31/2016 [facility] Temperature Oral (F) 98.9 F 10/31/2016 [facility] Systolic (mm Hg) 168 10/31/2016 [facility] Diastolic (mm Hg) 108 10/31/2016 [facility] Temperature Oral (F) 98.1 F 10/21/2016 [facility] Respitory Rate 18 10/21/2016 [facility] Systolic (mm Hg) 125 10/21/2016 [facility] Diastolic (mm Hg) 80 10/21/2016 [facility] Heart Rate 71 10/21/2016 [facility] Systolic (mm Hg) 132 10/21/2016 [facility] Diastolic (mm Hg) 94 10/21/2016 [facility] Respitory Rate 20 10/21/2016 [facility] Systolic (mm Hg) 144 10/21/2016 [facility] Diastolic (mm Hg) 102 10/21/2016 [facility] Height 165.1 cm 10/21/2016 [facility] BMI Calculated 30.02 10/21/2016 [facility] Weight 81.818 10/21/2016 [facility] Temperature Oral (F) 98.4 F 10/21/2016 [facility] Heart Rate 94 10/21/2016 [facility] Respitory Rate 18 10/21/2016 [facility] Systolic (mm Hg) 140 10/17/2016 [facility] Diastolic (mm Hg) 99 10/17/2016 [facility] Heart Rate 90 10/17/2016 [facility] Respitory Rate 18 10/17/2016 [facility] Temperature Oral (F) 98.4 F 10/17/2016 [facility] Weight 81.818 10/17/2016 [facility] Temperature Oral (F) 98.3 F 10/17/2016 [facility] Height 165.1 cm 10/17/2016 [facility] BMI Calculated 30.02 10/17/2016 [facility] Heart Rate 89 10/17/2016 [facility] Systolic (mm Hg) 159 10/17/2016 [facility] Diastolic (mm Hg) 113 10/17/2016 [facility] Respitory Rate 18 10/17/2016 [facility] Height 165.1 cm 10/15/2016 [facility] BMI Calculated 30.02 10/15/2016 [facility] Weight 81.818 10/15/2016 [facility] Temperature Oral (F) 98 F 10/15/2016 [facility] Heart Rate 85 10/15/2016 [facility] Respitory Rate 16 10/15/2016 [facility] Systolic (mm Hg) 149 10/15/2016 [facility] Diastolic (mm Hg) 101 10/15/2016 [facility] Systolic (mm Hg) 136 06/13/2016 [facility] Diastolic (mm Hg) 81 06/13/2016 [facility] Temperature Oral (F) 98.2 F 06/13/2016 [facility] Heart Rate 101 06/13/2016 [facility] Respitory Rate 18 06/13/2016 [facility] Weight 77.273 06/13/2016 [facility] Heart Rate 121 06/13/2016 [facility] Temperature Oral (F) 98.8 F 06/13/2016 [facility] Respitory Rate 18 06/13/2016 [facility] Systolic (mm Hg) 171 06/13/2016 [facility] Diastolic (mm Hg) 124 06/13/2016 [facility] BMI Calculated 28.35 06/13/2016 [facility] Height 165.1 cm 06/13/2016 [facility] Temperature Oral (F) 98.1 F 05/24/2016 [facility] Systolic (mm Hg) 136 05/24/2016 [facility] Diastolic (mm Hg) 96 05/24/2016 [facility] Respitory Rate 18 05/24/2016 [facility] Respitory Rate 14 05/24/2016 [facility] Systolic (mm Hg) 148 05/24/2016 [facility] Diastolic (mm Hg) 95 05/24/2016 [facility] Temperature Oral (F) 98.6 F 05/24/2016 [facility] Height 165.1 cm 05/24/2016 [facility] BMI Calculated 27.85 05/24/2016 [facility] Weight 75.909 05/24/2016 [facility] Temperature Oral (F) 98.4 F 05/24/2016 [facility] Systolic (mm Hg) 154 05/24/2016 [facility] Diastolic (mm Hg) 115 05/24/2016 [facility] Heart Rate 103 05/24/2016 [facility] Respitory Rate 20 05/24/2016 [facility] Heart Rate 74 04/30/2016 [facility] Temperature Oral (F) 98.5 F 04/30/2016 [facility] Systolic (mm Hg) 125 04/30/2016 [facility] Diastolic (mm Hg) 83 04/30/2016 [facility] Heart Rate 76 04/30/2016 [facility] Temperature Oral (F) 97.9 F 04/30/2016 [facility] Respitory Rate 14 04/30/2016 [facility] Systolic (mm Hg) 117 04/30/2016 [facility] Diastolic (mm Hg) 81 04/30/2016 [facility] Respitory Rate 14 04/30/2016 [facility] Temperature Oral (F) 98.4 F 04/30/2016 [facility] Systolic (mm Hg) 120 04/30/2016 [facility] Diastolic (mm Hg) 81 04/30/2016 [facility] Heart Rate 69 04/30/2016 [facility] Respitory Rate 16 04/30/2016 [facility] Weight 80.114 04/29/2016 [facility] Height 165.1 cm 04/27/2016 [facility] BMI Calculated 26.68 04/27/2016 [facility] Weight 72.727 04/27/2016 [facility] Height 165.1 cm 04/22/2016 [facility] Weight 72.727 04/22/2016 [facility] BMI Calculated 26.68 04/22/2016 [facility] BMI Calculated 30.02 04/22/2016 [facility] Height 165.1 cm 04/22/2016 [facility] Heart Rate 72 03/31/2016 [facility] Temperature Oral (F) 97.9 F 03/31/2016 [facility] Respitory Rate 18 03/31/2016 [facility] Systolic (mm Hg) 133 03/31/2016 [facility] Diastolic (mm Hg) 88 03/31/2016 [facility] Systolic (mm Hg) 154 03/31/2016 [facility] Diastolic (mm Hg) 104 03/31/2016 [facility] BMI Calculated 30.02 03/31/2016 [facility] Weight 81.818 03/31/2016 [facility] Height 165.1 cm 03/31/2016 [facility] Temperature Oral (F) 98.6 F 03/31/2016 [facility] Respitory Rate 20 03/31/2016 [facility] Heart Rate 89 03/31/2016 [facility] Systolic (mm Hg) 181 03/31/2016 [facility] Diastolic (mm Hg) 117 03/31/2016 [facility] Systolic (mm Hg) 127 03/27/2016 [facility] Diastolic (mm Hg) 89 03/27/2016 [facility] Systolic (mm Hg) 132 03/27/2016 [facility] Diastolic (mm Hg) 89 03/27/2016 [facility] Systolic (mm Hg) 158 03/27/2016 [facility] Diastolic (mm Hg) 102 03/27/2016 [facility] Respitory Rate 19 03/27/2016 [facility] Respitory Rate 14 03/27/2016 [facility] Respitory Rate 10 03/27/2016 [facility] Heart Rate 94 03/14/2016 [facility] Temperature Oral (F) 98.1 F 03/14/2016 [facility] Height 165.1 cm 03/14/2016 [facility] Weight 78.835 03/14/2016 [facility] BMI Calculated 28.92 03/14/2016 [facility] Respitory Rate 18 12/31/2015 [facility] Heart Rate 93 12/31/2015 [facility] Temperature Oral (F) 98.5 F 12/31/2015 [facility] Systolic (mm Hg) 146 12/31/2015 [facility] Diastolic (mm Hg) 101 12/31/2015 [facility] Systolic (mm Hg) 137 12/31/2015 [facility] Diastolic (mm Hg) 104 12/31/2015 [facility] Temperature Oral (F) 98.5 F 12/31/2015 [facility] Respitory Rate 18 12/31/2015 [facility] Heart Rate 103 12/31/2015 [facility] Weight 81.818 12/30/2015 [facility] BMI Calculated 30.02 12/30/2015 [facility] Respitory Rate 16 12/30/2015 [facility] Temperature Oral (F) 98.0 F 12/30/2015 [facility] Systolic (mm Hg) 148 12/30/2015 [facility] Diastolic (mm Hg) 98 12/30/2015 [facility] Heart Rate 104 12/30/2015 [facility] Height 165.1 cm 12/30/2015 [facility] Encounters Location Location Encounter Encounter Reason Attending ADM DC Status Source Details Type Number For Provider Date Date Visit [facility] [id number] Jourdan 12/30 12/31 [facility] Emergency 0 [place] /2015 [facility] Outpatient [id number] THEODOROS 02/28 [facility] 1 VOLOYIAN [place] Out[facility] [id number] THEODOROS 03/27 [facility] 3 VOLOYIANNIS [facility] Outpatient [id number] THEODOROS 03/27 [facility] 2 VOLOYIANNIS [place] Outpatient [id number] THEODOROS 03/27 [facility] 4 V[facility]OYIANNIS [facility] OBS [id number] Theodoros 03/27 03/28 [place] [facility] 1 Voloyiannis /2015 [facility] [place] [id number] [place] 03/31 03/31 [facility] Emergency 2 Givens /2015 [facility] Outpatient [id number] THEODOROS 04/16 [facility] 6 VOLOYIANNIS [facility] Outpatient [id number] THEODOROS 04/18 [facility] 5 VOLOYIANNIS [facility] Inpatient [id number] Theodoros 04/22 04/30 [facility] 3 Voloyiannis /2015 [facility] Outpatient [id number] THEODOROS 04/22 [facility] 9 VOLOYIANNIS [facility] Outpatient [id number] THEODOROS 04/23 [facility] 8 VOLOYIANNIS [facility] Outpatient [id number] THEODOROS 05/02 [facility] 7 VOLOYIANNIS [facility] Outpatient [id number] LINDA PATSY 05/14 [facility] Outpatient [id number] THEODOROS 05/14 [facility] 0 VOLOYNIS [facility] Outpatient [id number] LINDA PATSY 05/22 [facility] [place] [id number] Jourdan 05/24 05/24 [place] Emergency 4 [place] /2015 [facility] Outpatient [id number] THEODOROS 05/24 [facility] 4 VOLOY [place] Outpatient [id number] THEODOROS 05/29 [facility] 3 [facility]OYIANNIS [facility] [facility] [place] [id number] Alpesh 06/13 06/14 [place] [facility] 5 Matthews /2015 [facility] [id number] Hoang Zimmer 10/15 10/15 [place] 7 /2015 [facility] Emergency [id number] Dylan 10/17 10/17 [facility] 8 [facility] Emergency [id number] Michael Kincaid 10/21 10/21 [facility] [place] [facility] Emergency [id number] Luis 10/31 10/31 [facility] [place] 0 [facility] Emergency [id number] Hoang Zimmer 11/22 11/22 [facility] Emergency [id number] Sony 01/23 01/23 [facility] 2 Abiodun [facility] Inpatient [id number] [place] [facility] 01/24 01/28 [facility] 3 Moug [facility] Emergency [id number] Fantasma 03/27 03/27 [facility] 4 Elias [facility] Observation [id number] Tas 07/05 07/05 [facility] 5 Moug [facility] Inpatient [id number] Walter Moreno 11/20 11/26 [facility] [place] [facility] Outpatient [id number] EMMANUEL MAYRA 12/04 Active [facility] Outpatient [id number] Emmanuel Mayra 12/04 12/05 [facility] Primary Medical Care [facility] Phone [id number] 12/05 12/07 MH Primary Message Medical Care [facility] Phone [id number] 12/12 12/14 MH Primary Message Medical Care [facility] Emergency [id number] Rajesh Berry 12/22 12/22 [facility] [place] [facility] Outpatient [id number] EMMANUEL MAYRA 12/24 Active [facility] [place] [facility] Outpatient [id number] Emmanuel Mayra 12/24 12/25 [facility] Primary Medical Care [facility] Outpatient [id number] EMMANUEL MAYRA 01/28 Active [facility] [place] Outpatient [id number] EMMANUEL MAYRA 02/10 Active [facility] Outpt Diag [id number] Emmanuel Rioshl 02/20 02/21 [facility] Emergency [id number] Pilar 02/20 02/20 [place] 0 [place] [facility] Outpatient [id number] NOMAN 03/05 Active [facility] 9 [facility] Outpatient [id number] Noman 03/05 03/06 General 9 [facility] [place] Outpatient [id number] NOMAN 03/12 Active [facility] 0 [facility] Day Surgery [id number] Noman 03/12 03/12 [facility] 1 [facility] Inpatient [id number] Craig Rodriguez 03/15 03/18 [facility] Outpatient [id number] NOMAN 03/16 Active [facility] 1 [facility] Observation [id number] [facility] 03/21 03/22 [facility] 3 Enriquez [facility] Inpatient [id number] Adrian Bobo 04/07 04/09 [facility] Phone [id number] 04/22 04/24 Primary Message [facility] Procedures Procedure Code Date Perfomer Comments Source Operation<sup>1</s [id number] 03/27/20 Examination under [facility] up> 16 anesthesia, fissurectomy with Botox chemical denervation of anal sphincter 100 units with subcutaneous fistulotomy, excision of skin tag x 2 and ligation of internal hemorrhoids x 3 with hemorrhoidopexy and mucopexy. Excision of left inner thigh skin mole. Operation<sup>1</s [id number] 03/27/20 Examination under [facility] up> 16 anesthesia, [place] fissurectomy with Botox chemical denervation of anal sphincter 100 units with subcutaneous fistulotomy, excision of skin tag x 2 and ligation of internal hemorrhoids x 3 with hemorrhoidopexy and mucopexy. Excision of left inner thigh skin mole. Operation<sup>1</s [id number] 03/27/20 Examination under Medical up> 16 anesthesia, Group fissurectomy with Botox chemical denervation of anal sphincter 100 units with subcutaneous fistulotomy, excision of skin tag x 2 and ligation of internal hemorrhoids x 3 with hemorrhoidopexy and mucopexy. Excision of left inner thigh skin mole. Operation<sup>1</s [id number] 03/27/20 Examination under [facility]> 16 anesthesia, [facility] fissurectomy with Botox chemical denervation of anal sphincter 100 units with subcutaneous fistulotomy, excision of skin tag x 2 and ligation of internal hemorrhoids x 3 with hemorrhoidopexy and mucopexy. Excision of left inner thigh skin mole. Operation<sup>1</s [id number] 03/27/20 Examination under [facility]> 16 anesthesia, fissurectomy with Botox chemical denervation of anal sphincter 100 units with subcutaneous fistulotomy, excision of skin tag x 2 and ligation of internal hemorrhoids x 3 with hemorrhoidopexy and mucopexy. Excision of left inner thigh skin mole. Tonsillectomy [id number] 11/10/19 [facility] 07 Tonsillectomy [id number] 11/10/19 [facility] 07 [place] Tonsillectomy [id number] 11/10/19 [facility] 07 Group Tonsillectomy [id number] 11/10/19 [facility] 07 [facility] Tonsillectomy [id number] 11/10/19 [facility] 07 Breast [id number] 11/10/19 [facility] augmentation 06 Breast [id number] 11/10/19 [facility] augmentation 06 [place] Breast [id number] 11/10/19 [facility] augmentation 06 Group Breast [id number] 11/10/19 [facility] augmentation 06 [facility] Breast [id number] 11/10/19 [facility] augmentation 06 ACL - Repair of [id number] 11/10/18 [facility] anterior cruciate 98 ligament ACL - Repair of [id number] 11/10/18 [facility] anterior cruciate 98 [place] ligament ACL - Repair of [id number] 11/10/18 [facility] anterior cruciate 98 Group ligament ACL - Repair of [id number] 11/10/18 [facility] anterior cruciate 98 [facility] ligament ACL - Repair of [id number] 11/10/18 [facility] anterior cruciate 98 ligament Appendectomy [id number] 11/10/18 [facility] 87 Appendectomy [id number] 11/10/18 [facility] 87 [place] Appendectomy [id number] 11/10/18 [facility] 87 Group Appendectomy [id number] 11/10/[address] Appendectomy [id number] 11/10/18 [place] [address] Abdominoplasty [id number] [facility] [id number] x 4 [facility] section<sup>2</sup > [id number] x 4 [facility] section<sup>1</sup > Abdominoplasty [id number] [facility] [place] [id number] x 4 [facility] section<sup>2</sup [place] > Abdominoplasty [id number] Medical Group 88492731 x 4 Medical section<sup>2</sup Group > Abdominoplasty [id number] [facility] [id number] x 4 [facility] section<sup>2</sup City > Abdominoplasty [id number] [facility] 29498949 x 4 [facility] section<sup>2</sup >
--- OUTSIDE RECORDS SUMMARY | 2018-05-04 10:29 | XMS REPORT | Summary of Care ---
:1980 Author Organization [facility] Address [address] [address], [place] [address]- Encounter HQ Madelynr_eneida(FIN) [id number] Date(s): 07/04/17 - 07/05/17 [facility] [address] [place] [address]- Discharge Disposition: Home or Self Care Attending Physician: Yeni Douglas MD Admitting Physician: Yeni Douglas MD Vital Signs Most recent to oldest 1 2 3 [Reference Range]: Height 165.1 cm (07/04/17 7:41 PM) Temperature Oral [96.4-99.1 97.1 DegF 98.2 DegF 97.4 DegF DegF] (07/05/17 11:14 AM) (07/05/17 8:31 AM) (07/05/17 3:06 AM) Blood Pressure [90-140/60-90 118/82 mmHg 121/83 mmHg 151/92 mmHg mmHg] (07/05/17 11:14 AM) (07/05/17 8:31 AM) *HI* (07/05/17 3:06 AM) Respiratory Rate [14-20 BRMIN] 18 BRMIN 18 BRMIN 18 BRMIN (07/05/17 11:14 AM) (07/05/17 8:31 AM) (07/05/17 3:06 AM) Peripheral Pulse Rate [60-100 78 bpm 77 bpm 66 bpm bpm] (07/05/17 11:14 AM) (07/05/17 8:31 AM) (07/05/17 3:06 AM) Weight 81.818 kg 81.818 kg (07/05/17 1:45 AM) (07/04/17 7:41 PM) Body Mass Index 30.02 m2 (07/04/17 7:41 PM) Problem List Condition Effective Dates Status Health Status Informant Acute pyelonephritis(Confirmed) Active Appendicitis(Confirmed) Resolved delivery(Confirmed) Resolved Crohns disease(Confirmed) Resolved Hemorrhoids(Confirmed) Active Tonsillitis(Confirmed) Resolved Allergies, Adverse Reactions, Alerts Substance Reaction Severity Status codeine Codeine Active Codeine Codeine Medications acetaminophen-hydrocodone 325 mg-5 mg oral tablet 1 tab, Route: PO, Drug Form: TAB, Dosing Weight 81.818, kg, Q4H, PRN Pain Score 4-6, Start date: 07/05/17 0:44:00 CDT, Duration: 30 day, Stop date: 08/04/17 0: 43:00 CDT Notes: (Same as: [place] 325/5) Do not exceed 4gm/day of acetaminophen. Start Date: 07/05/17 Stop Date: 07/05/17 Status: DiscontinuedcefTRIAXone + sodium chloride 0.9% INJ 100 mL 1 gm, Route: IVPB, ONCE, Dosing Weight 81.818, kg, Priority: STAT, Start date: 07/04/17 22:28:00 CDT, Duration: 1 doses or times, Stop date: 07/04/17 22:28:00 CDT, ABX Indication: Urinary Tract Infection Notes: (Same As: Rocephin).Use with 100 mL NS and infuse over 30 min MEDICATION WASTE Product Size: 1000 mgProduct Wasted: ___ mg Start Date: 07/04/17 Stop Date: 07/04/17 Status: CompletedDilaudid 1.5 mg, 1.5 mL, Route: IVP, Drug form: INJ, Q3H, Dosing Weight 81.818, kg, PRN Pain Score 7-10, Start date: 07/04/17 22:11:00 CDT, Stop date: 08/03/17 22:10: 00 CDT Start Date: 07/04/17 Stop Date: 07/05/17 Status: DiscontinuedDilaudid 0.5 mg, 0.5 mL, Route: IVP, Drug form: INJ, ONCE, Dosing Weight 81.818, kg, Priority: STAT, Start date: 07/04/17 19:48:00 CDT, Stop date: 07/04/17 19:48:00 CDT Start Date: 07/04/17 Stop Date: 07/04/17 Status: CompletedDilaudid 1 mg, 1 mL, Route: IVP, Drug form: INJ, ONCE, Dosing Weight 81.818, kg, Priority : STAT, Start date: 07/04/17 20:35:00 CDT, Stop date: 07/04/17 20:35:00 CDT Start Date: 07/04/17 Stop Date: 07/04/17 Status: CompletedketOROLAC 30 mg, 1 mL, Route: IVP, Drug form: INJ, ONCE, Dosing Weight 81.818, kg, Priority: STAT, Start date:07/04/17 22:35:00 CDT, Stop date: 07/04/17 22:35:00 CDT Notes: (Same as:Toradol) IV bolus must be given >15 seconds. Give IM administration slowly and deeply into the muscle.Not for use > 4 days MEDICATION WASTE Product Size: 30 mgProduct Wasted: ___ mg Start Date: 07/04/17 Stop Date: 07/04/17 Status: CompletedLactated Ringers 1,000 mL 1,000 mL, Rate: 125 ml/hr, Infuse over: 8 hr, Route: IV, Dosing Weight 81.818 kg , Total Volume: 1,000, Start date: 07/05/17 0:44:00 CDT, Duration: 30 day, Stop date: 08/04/17 0:43:00 CDT Start Date: 07/05/17 Stop Date: 07/05/17 Status: Discontinuedmorphine Sulfate 4 mg, 1 mL, Route: IVP, Drug form: SOLN, ONCE, Dosing Weight 81.818, kg, Priority: STAT, Start date:07/04/17 22:28:00 CDT, Stop date: 07/04/17 22:28:00 CDT Notes: (Same as:MORPhine Sulfate) Start Date: 07/04/17 Stop Date: 07/04/17 Status: Completedondansetron 4 mg, 2 mL, Route: IVP, Drug form: INJ, Q6H, Dosing Weight 81.818, kg, PRN Nausea & Vomiting, Start date: 07/05/17 0:44:00 CDT, Duration: 30 day, Stop date: 08/04/17 0:43:00 CDT Notes: (Same as: Gosia) MEDICATION WASTE Product Size: 4 mgProduct Wasted: ___ mg Start Date: 07/05/17 Stop Date: 07/05/17 Status: Discontinuedondansetron 4 mg, 2 mL, Route: IVP, Drug form: INJ, ONCE, Dosing Weight 81.818, kg, Priority : STAT, Start date: 07/04/17 21:21:00 CDT, Stop date: 07/04/17 21:21:00 CDT Notes: (Same as: Gosia) MEDICATION WASTE Product Size: 4 mgProduct Wasted: ___ mg Start Date: 07/04/17 Stop Date: 07/04/17 Status: Completedpotassium chloride 20 mEq, 100 mL, Route: IVPB, Drug form: INJ, ONCE, Dosing Weight 81.818, kg, Start date: 07/05/17 8:42:00 CDT, Stop date: 07/05/17 8:42:00 CDT Notes: (Same as: KCL) Infuse no faster than 10 mEq/hr if given peripherally. Start Date: 07/05/17 Stop Date: 07/05/17 Status: CompletedSaline Flush 0.9% 10 ml, Route: IVP, Drug Form: INJ, Dosing Weight 81.818, kg, PRN, PRN Line Flush , Start date: 07/05/17 0:44:00 CDT, Duration: 30 day, Stop date: 08/04/17 0:43: 00 CDT Notes: (Same as: BD Posiflush) Start Date: 07/05/17 Stop Date: 07/05/17 Status: DiscontinuedSodium Chloride 0.9% (Bolus) IV 1,000 mL, 1000 ml/hr, Infuse Over: 1 hr, Route: IV, 1,000, Drug form: INJ, ONCE , Priority: STAT, Dosing Weight 81.818 kg, Start date: 07/04/17 21:21:00 CDT, Duration: 1 doses or times, Stop date: 07/04/17 21:21:00 CDT Start Date: 07/04/17 Stop Date: 07/04/17 Status: CompletedUltram ER 100 mg oral tablet, extended release 100 mg=1 tab, PO, Daily, # 30 tab, 0 Refill(s) Start Date: 07/05/17 Status: Ordered Results ELECTROLYTES Most recent to oldest [Reference Range]: 1 2 Sodium Lvl [135-145 mEq/L] 138 mEq/L 139 mEq/L (07/05/17 4:00 AM) (07/04/17 8:00 PM) Potassium Lvl [3.5-5.1 mEq/L] 3.1 mEq/L 3.6 mEq/L *LOW* (07/04/17 8:00 PM) (07/05/17 4:00 AM) Chloride Lvl [95-109 mEq/L] 103 mEq/L 104 mEq/L (07/05/17 4:00 AM) (07/04/17 8:00 PM) CO2 [24-32 mEq/L] 29 mEq/L 30 mEq/L (07/05/17 4:00 AM) (07/04/17 8:00 PM) AGAP [10.0-20.0 mEq/L] 9.1 mEq/L 8.6 mEq/L *LOW* *LOW* (07/05/17 4:00 AM) (07/04/17 8:00 PM) CHEM PANEL Most recent to oldest [Reference Range]: 1 2 Creatinine Lvl [0.50-1.40 mg/dL] 0.69 mg/dL 0.78 mg/dL (07/05/17 4:00 AM) (07/04/17 8:00 PM) eGFR 114 mL/min/1.73m2 1 100 mL/min/1.73m2 2 *NA* *NA* (07/05/17 4:00 AM) (07/04/17 8:00 PM) BUN [7-22 mg/dL] 10 mg/dL 10 mg/dL (07/05/17 4:00 AM) (07/04/17 8:00 PM) B/C Ratio [6-25] 13 (07/04/17 8:00 PM) Glucose Lvl [70-99 mg/dL] 121 mg/dL 96 mg/dL *HI* (07/04/17 8:00 PM) (07/05/17 4:00 AM) Total Protein [6.4-8.4 g/dL] 7.9 g/dL (07/04/17 8:00 PM) Albumin Lvl [3.5-5.0 g/dL] 4.0 g/dL (07/04/17 8:00 PM) Globulin [2.7-4.2 g/dL] 3.9 g/dL (07/04/17 8:00 PM) A/G Ratio [0.7-1.6] 1.0 (07/04/17 8:00 PM) Calcium Lvl [8.5-10.5 mg/dL] 8.1 mg/dL 9.5 mg/dL *LOW* (07/04/17 8:00 PM) (07/05/17 4:00 AM) ALT [0-65 unit/L] 20 unit/L (07/04/17 8:00 PM) AST [0-37 unit/L] 12 unit/L (07/04/17 8:00 PM) Alk Phos [39-136 unit/L] 62 unit/L (07/04/17 8:00 PM) Bili Total [0.2-1.3 mg/dL] 0.3 mg/dL (07/04/17 8:00 PM) 1Result Comment: The eGFR is calculated using the CKD-EPI formula. In most young , healthy individualsthe eGFR will be >90 mL/min/1.73m2. The eGFR declines with age. An eGFR of 60-89 may be normal in some populations, particularly the elderly, for whom the CKD-EPI formula has not been extensively validated. Use of the eGFR is not recommended in the following populations: Individuals with unstable creatinine concentrations, including patients and those with serious co-morbid conditions. Patients with extremes in muscle mass or diet. The data above are obtained from the National Kidney Disease Education Program ( NKDEP) which additionally recommends that when the eGFR is used in patients with extremes of body mass index for purposesof drug dosing, the eGFR should be multiplied by the estimated BMI.2Result Comment: The eGFR is calculated using the CKD-EPI formula. In most young, healthy individualsthe eGFR will be >90 mL/ min/1.73m2. The eGFR declines with age. An eGFR of 60-89 may be normal in some populations, particularly the elderly, for whom the CKD-EPI formula has not been extensively validated. Use of the eGFR is not recommended in the following populations: Individuals with unstable creatinine concentrations, including patients and those with serious co-morbid conditions. Patients with extremes in muscle mass or diet. The data above are obtained from the National Kidney Disease Education Program ( NKDEP) which additionally recommends that when the eGFR is used in patients with extremes of body mass index for purposesof drug dosing, the eGFR should be multiplied by the estimated BMI.URINE CHEM Most recent to oldest [Reference Range]: 1 2 U Preg [Negative] Negative (07/04/17 8:13 PM) URINE AND STOOL Most recent to oldest [Reference Range]: 1 2 UA Turbidity [Clear] Clear (07/04/17 8:13 PM) UA Color [Yellow] Yellow *NA* (07/04/17 8:13 PM) UA pH [5.0-8.0] 5.0 (07/04/17 8:13 PM) UA Spec Grav [<=1.030] 1.029 (07/04/17 8:13 PM) UA Glucose [Negative mg/dL] Negative mg/dL *NA* (07/04/17 8:13 PM) UA Blood [Negative] Negative (07/04/17 8:13 PM) UA Ketones [Negative mg/dL] Trace mg/dL *ABN* (07/04/17 8:13 PM) UA Protein [Negative mg/dL] 30 mg/dL *ABN* (07/04/17 8:13 PM) UA Urobilinogen [0.1-1.0 mg/dL] <=1.0 mg/dL *NA* (07/04/17 8:13 PM) UA Bili [Negative] Negative *NA* (07/04/17 8:13 PM) UA Leuk Est [Negative] Trace *ABN* (07/04/17 8:13 PM) UA Nitrite [Negative] Negative (07/04/17 8:13 PM) UA WBC [0-5 /HPF] 9 /HPF *HI* (07/04/17 8:13 PM) UA RBC [0-2 /HPF] 4 /HPF *HI* (07/04/17 8:13 PM) UA Bacteria [None Seen /HPF] Occasional /HPF *NA* (07/04/17 8:13 PM) UA Sq Epi [Few /LPF] Occasional /LPF *NA* (07/04/17 8:13 PM) UA Mucus [None Seen /LPF] Few /LPF *NA* (07/04/17 8:13 PM) HEMATOLOGY Most recent to oldest [Reference Range]: 1 2 WBC [3.7-10.4 K/CMM] 8.0 K/CMM 10.2 K/CMM (07/05/17 4:00 AM) (07/04/17 8:00 PM) RBC [4.20-5.40 M/CMM] 4.18 M/CMM 4.91 M/CMM *LOW* (07/04/17 8:00 PM) (07/05/17 4:00 AM) Hgb [12.0-16.0 g/dL] 13.1 g/dL 15.4 g/dL (07/05/17 4:00 AM) (07/04/17 8:00 PM) Hct [36.0-48.0 %] 38.4 % 45.2 % (07/05/17 4:00 AM) (07/04/17 8:00 PM) MCV [80.0-98.0 fL] 91.8 fL 92.0 fL (07/05/17 4:00 AM) (07/04/17 8:00 PM) MCH [27.0-31.0 pg] 31.4 pg 31.5 pg *HI* *HI* (07/05/17 4:00 AM) (07/04/17 8:00 PM) MCHC [32.0-36.0 g/dL] 34.1 g/dL 34.2 g/dL (07/05/17 4:00 AM) (07/04/17 8:00 PM) RDW [11.5-14.5 %] 12.2 % 12.3 % (07/05/17 4:00 AM) (07/04/17 8:00 PM) Platelet [133-450 K/CMM] 239 K/CMM 300 K/CMM (07/05/17 4:00 AM) (07/04/17 8:00 PM) MPV [7.4-10.4 fL] 8.1 fL 8.6 fL (07/05/17 4:00 AM) (07/04/17 8:00 PM) Segs [45.0-75.0 %] 52.9 % 58.7 % (07/05/17 4:00 AM) (07/04/17 8:00 PM) Lymphocytes [20.0-40.0 %] 33.9 % 30.4 % (07/05/17 4:00 AM) (07/04/17 8:00 PM) Monocytes [2.0-12.0 %] 9.0 % 7.8 % (07/05/17 4:00 AM) (07/04/17 8:00 PM) Eosinophils [0.0-4.0 %] 3.5 % 2.4 % (07/05/17 4:00 AM) (07/04/17 8:00 PM) Basophils [0.0-1.0 %] 0.7 % 0.7 % (07/05/17 4:00 AM) (07/04/17 8:00 PM) Segs-Bands # [1.5-8.1 K/CMM] 4.2 K/CMM 6.0 K/CMM (07/05/17 4:00 AM) (07/04/17 8:00 PM) Lymphocytes # [1.0-5.5 K/CMM] 2.7 K/CMM 3.1 K/CMM (07/05/17 4:00 AM) (07/04/17 8:00 PM) Monocytes # [0.0-0.8 K/CMM] 0.7 K/CMM 0.8 K/CMM (07/05/17 4:00 AM) (07/04/17 8:00 PM) Eosinophils # [0.0-0.5 K/CMM] 0.3 K/CMM 0.2 K/CMM (07/05/17 4:00 AM) (07/04/17 8:00 PM) Basophils # [0.0-0.2 K/CMM] 0.1 K/CMM 0.1 K/CMM (07/05/17 4:00 AM) (07/04/17 8:00 PM) Immunizations No data available for this section Procedures Procedure Date Related Diagnosis Body Site Operation1 03/27/16 Tonsillectomy 2007 Breast augmentation 2005 ACL - Repair of anterior cruciate ligament 1998 Appendectomy 1987 Abdominoplasty section2 1Examination under anesthesia, fissurectomy with Botox chemical denervation of anal sphincter 100 units with subcutaneous fistulotomy, excision of skin tag x 2 and ligation of internal hemorrhoids x 3 with hemorrhoidopexy and mucopexy. Excision of left inner thigh skin mole.2x 4 Social History Social History Type Response Substance Abuse Use: None. Alcohol Current, Type Beer. Frequency: 1-2 times per month. Smoking Status Current some day smoker; Type: Cigarettes; Exposure to Tobacco Smoke Self; Other Tobacco Frequency 1cig/day. Has not had anything to smoke for 2 months.; Cigarette Smoking Last 365 Days Yes; Reg Smoking Cessation Counseling No Assessment and Plan Extracted from: Title: Clinical Document Author: Yeni Douglas MD Date: 07/05/17 IPC Daily Progress Note [facility] Yeni Douglas MD SUBJECTIVE: pt seen and examined, events noted OBJECTIVE: Vitals and Temp: Vitals Tmp(F) Pulse BP RR SpO2 FIO2 07/05 08:31 98.2 77 121/83 18 96 --- 07/05 03:06 97.4 66 151/92 18 98 --- 07/05 01:39 98.3 77 147/104 18 97 --- 07/05 01:07 ---- --- 139/100 -- --- --- 07/05 00:50 97.9 88 150/104 18 99 --- 24 Hr Tmax: 98.3F (36.83c) at 07/05 01:39 Vital Signs are the last 5 in the past 48 hours. Labs (Last four charted values) WBC 8.0 (JUL 05) 10.2 (JUL 04) Hgb 13.1 (JUL 05) 15.4 (JUL 04) Hct 38.4 (JUL 05) 45.2 (JUL 04) Plt 239 (JUL 05) 300 (JUL 04) Na 138 (JUL 05) 139 (JUL 04) K L 3.1 (JUL 05) 3.6 (JUL 04) CO2 29 (JUL 05) 30 (JUL 04) Cl 103 (JUL 05) 104 (JUL 04) Cr 0.69 (JUL 05) 0.78 (JUL 04) BUN 10 (JUL 05) 10 (JUL 04) Glucose Random H 121 (JUL 05) 96 (JUL 04) Ca L 8.1 (JUL 05) 9.5 (JUL 04) ASSESSMENT & EXAM: General: in no apparent distress at this time. Eyes: Pupils equal, round and reactive to light. Eyes normal inspection. ENT: Ears normal. Nose normal. Pharynx normal. Neck: Normal inspection. No jugular venous distention. Neck supple. CVS: Heart sounds normal. Pulses normal. no murmurs Respiratory: No respiratory distress. Breath sounds normal. no wheezing Abdomen: Soft and nontender. no organomegaly Back: Normal inspection. Skin: Skin warm and dry. Normal skin color. Extremities: Extremities exhibit normal ROM. No lower extremity edema. Neuro: Oriented X 3. No motor deficit. DIAGNOSES & PROBLEMS: 1. Right flank and abdominal pain 2. History of Crohn's disease, PLAN & TREATMENT: IV analgesia, which controlled her pain and she has also had some success with antiemetics given in the ER. We will advance diet as tolerated. The patient expressed a desire to get home to see her children once her pain is controlled. We will continue the IV fluids discharge nonce pain is controlled. MEDICATIONS Scheduled Meds: None Unscheduled Meds: None PRN Meds (4):acetaminophen-hydrocodone (acetaminophen-hydrocodone 325 mg-5 mg oral tablet), hydromorphone (Dilaudid), ondansetron, sodium chloride (Saline Flush 0.9%) One Time Meds (8):(Completed) Sodium Chloride 0.9% IV (Sodium Chloride 0.9% ( Bolus) IV), (Completed) cefTRIAXone + sodium chloride 0.9% INJ 100 mL, ( Completed) hydromorphone (Dilaudid), (Completed) hydr omorphone (Dilaudid), (Completed) ketOROLAC, (Completed) morphine Sulfate, ( Completed) ondansetron, (Completed) potassium chloride Continuous Infusions (1):Lactated Ringers 1,000 mL Extracted from: Title: Clinical Document Author: Jarred Encinas MD Date: 07/05/17 full H&P dictated, #[id number] date/time of encounter: 07/04/2017 20:30
--- OUTSIDE RECORDS SUMMARY | 2018-05-04 10:29 | XMS REPORT | Summary of Care ---
:[address] [facility] Address [address] [place] [address]- Encounter HQ Gerardontr_eneida(FIN) [id number] Date(s): 02/20/18 - 02/20/[address] [facility] [id number] [place] [phone] Encounter Diagnosis Abdominal pain (Discharge Diagnosis) - 02/20/18 Discharge Disposition: Home or Self Care Attending Physician: Pilar Dupree MD Vital Signs Most recent to oldest 1 2 3 [Reference Range]: Height 165.1 cm (02/20/18 12:23 PM) Temperature Oral [96.4-99.1 98.6 DegF DegF] (02/20/18 12:23 PM) Blood Pressure [90-140/60-90 129/97 mmHg 123/94 mmHg 147/116 mmHg mmHg] (02/20/18 5:21 PM) (02/20/18 3:15 PM) *HI* (02/20/18 12:23 PM) Respiratory Rate [14-20 18 BRMIN 20 BRMIN 20 BRMIN BRMIN] (02/20/18 5:21 PM) (02/20/18 3:15 PM) (02/20/18 1:24 PM) Peripheral Pulse Rate [60-100 102 bpm 89 bpm 110 bpm bpm] *HI* (02/20/18 3:15 PM) *HI* (02/20/18 5:21 PM) (02/20/18 1:24 PM) Weight 77.2 kg (02/20/18 12:23 PM) Body Mass Index 28.32 m2 (02/20/18 12:23 PM) Problem List Condition Effective Dates Status Health Status Informant Abdominal distention(Confirmed) Active Abdominal pain(Confirmed) Active Erosive gastritis(Confirmed) Active Acute pyelonephritis(Confirmed) Resolved Appendicitis(Confirmed) Resolved Asthmatic bronchitis(Confirmed) Active delivery(Confirmed) Resolved Chronic anxiety(Confirmed) Active Crohns disease(Confirmed) Resolved Diarrhea(Confirmed) Active Hemorrhoids(Confirmed) Resolved History of Active nephrolithiasis(Confirmed) Hypertensive disorder(Confirmed) Active MRSA(Confirmed)1, 2 01/28/18 Active Tonsillitis(Confirmed) Resolved 1urine, 01/28/[id number] added by Discern Expert. Allergies, Adverse Reactions, Alerts Substance Reaction Severity Status codeine Codeine Active Codeine Codeine Medications cefTRIAXone + sterile water 10 mL 1 gm, Route: IV, ONCE, Dosing Weight 77.2, kg, Priority: STAT, Start date: 02/20 16:30:00 CDT, Stop date: 02/20/18 16:30:00 CDT, ABX Indication: Urinary Tract Infection Notes: (Same As: Rocephin).Use with 100 mL NS and infuse over 30 min MEDICATION WASTE Product Size: 1000 mgProduct Wasted: ___ mg Start Date: 02/20/18 Stop Date: 02/20/18 Status: Completedmorphine Sulfate 2 mg, 2 mL, Route: IVP, Drug form: SOLN, ONCE, Dosing Weight 77.2, kg, Priority : STAT, Start date: 02/20/18 12:44:00 CDT, Stop date: 02/20/18 12:44:00 CDT Notes: Preservative free. (Same as: Morphine Sulfate-PF) Start Date: 02/20/18 Stop Date: 02/20/18 Status: Completedondansetron 4 mg, 2 mL, Route: IVP, Drug form: INJ, ONCE, Dosing Weight 77.2, kg, Priority: STAT, Start date: 02/20/18 12:44:00 CDT, Stop date: 02/20/18 12:44:00 CDT Notes: (Same as: Zofran) MEDICATION WASTE Product Size: 4 mgProduct Wasted: ___ mg Start Date: 02/20/18 Stop Date: 02/20/18 Status: CompletedSaline Flush 0.9% 10 mL, Route: IVP, Drug Form: INJ, Dosing Weight 77.2, kg, PRN, PRN Line Flush, Start date: 02/21/1812:44:00 CDT, Duration: 30 day, Stop date: 03/22/18 12:43: 00 CDT Notes: (Same as: BD Posiflush) Start Date: 02/20/18 Stop Date: 02/20/18 Status: DiscontinuedSodium Chloride 0.9% (Bolus) IV 1,000 mL, 1,000 ml/hr, Infuse Over: 1 hr, Route: IV, ONCE, Priority: STAT, Dosing Weight 77.2 kg, Start date: 02/20/18 12:44:00 CDT, Stop date: 02/20/18 12 :44:00 CDT Start Date: 02/20/18 Stop Date: 02/20/18 Status: Completedtramadol 50 mg oral tablet 50 mg=1 tab, PO, Q6H, PRN Pain, # 12 tab, 0 Refill(s) Start Date: 02/20/18 Stop Date: 02/21/19 Status: Ordered Results BLOOD BANK RESULTS Most recent to oldest [Reference Range]: 1 ABO/Rh O POS *Unknown* (02/20/18 12:50 PM) Antibody Scrn Negative (02/20/18 12:50 PM) ELECTROLYTES Most recent to oldest [Reference Range]: 1 Sodium Lvl [135-145 mEq/L] 143 mEq/L (02/20/18 12:50 PM) Potassium Lvl [3.5-5.1 mEq/L] 3.4 mEq/L *LOW* (02/20/18 12:50 PM) Chloride Lvl [95-109 mEq/L] 110 mEq/L *HI* (02/20/18 12:50 PM) CO2 [24-32 mEq/L] 27 mEq/L (02/20/18 12:50 PM) AGAP [10.0-20.0 mEq/L] 9.4 mEq/L *LOW* (02/20/18 12:50 PM) CHEM PANEL Most recent to oldest [Reference Range]: 1 Creatinine Lvl [0.50-1.40 mg/dL] 0.77 mg/dL (02/20/18 12:50 PM) eGFR 101 mL/min/1.73m2 1 *NA* (02/20/18 12:50 PM) BUN [7-22 mg/dL] 13 mg/dL (02/20/18 12:50 PM) B/C Ratio [6-25] 17 (02/20/18 12:50 PM) Glucose Lvl [70-99 mg/dL] 98 mg/dL (02/20/18 12:50 PM) Total Protein [6.4-8.4 g/dL] 7.5 g/dL (02/20/18 12:50 PM) Albumin Lvl [3.5-5.0 g/dL] 3.7 g/dL (02/20/18 12:50 PM) Globulin [2.7-4.2 g/dL] 3.8 g/dL (02/20/18 12:50 PM) A/G Ratio [0.7-1.6] 1.0 (02/20/18 12:50 PM) Calcium Lvl [8.5-10.5 mg/dL] 8.1 mg/dL *LOW* (02/20/18 12:50 PM) ALT [0-65 unit/L] 36 unit/L (02/20/18 12:50 PM) AST [0-37 unit/L] 14 unit/L (02/20/18 12:50 PM) Alk Phos [39-136 unit/L] 64 unit/L (02/20/18 12:50 PM) Bili Total [0.2-1.3 mg/dL] 0.3 mg/dL (02/20/18 12:50 PM) 1Result Comment: The eGFR is calculated using the CKD-EPI formula. In most young , healthy individualsthe eGFR will be >90 mL/min/1.73m2. The eGFR declines with age. An eGFR of 60-89 may be normal insome populations, particularly the elderly, for whom the [...] eGFR should be multiplied by the estimated BMI.ENDOCRINOLOGY Most recent to oldest [Reference Range]: 1 hCG Tot <1 mIU/mL *NA* (02/20/18 12:50 PM) URINE AND STOOL Most recent to oldest [Reference Range]: 1 UA Turbidity [Clear] Marked *ABN* (02/20/18 3:15 PM) UA Color [Yellow] Lizzie *ABN* (02/20/18 3:15 PM) UA pH [5.0-8.0] 6.0 (02/20/18 3:15 PM) UA Spec Grav [<=1.030] 1.021 (02/20/18 3:15 PM) UA Glucose [Negative mg/dL] Negative mg/dL *NA* (02/20/18 3:15 PM) UA Blood [Negative] Small *ABN* (02/20/18 3:15 PM) UA Ketones [Negative mg/dL] Negative mg/dL *NA* (02/20/18 3:15 PM) UA Protein [Negative mg/dL] 30 mg/dL *ABN* (02/20/18 3:15 PM) UA Urobilinogen [0.1-1.0 mg/dL] 2.0 mg/dL *HI* (02/20/18 3:15 PM) UA Bili [Negative] Negative *NA* (02/20/18 3:15 PM) UA Leuk Est [Negative] Large *ABN* (02/20/18 3:15 PM) UA Nitrite [Negative] Negative (02/20/18 3:15 PM) UA WBC [0-5 /HPF] 10 /HPF *HI* (02/20/18 3:15 PM) UA RBC [0-2 /HPF] 26 /HPF *HI* (02/20/18 3:15 PM) UA Bacteria [None Seen /HPF] Moderate /HPF *ABN* (02/20/18 3:15 PM) UA Sq Epi [Few /LPF] Moderate /LPF *ABN* (02/20/18 3:15 PM) UA Amorph Petrona [None Seen /HPF] Moderate /HPF *ABN* (02/20/18 3:15 PM) UA Mucus [None Seen /LPF] Few /LPF *NA* (02/20/18 3:15 PM) HEMATOLOGY Most recent to oldest [Reference Range]: 1 WBC [3.7-10.4 K/CMM] 8.7 K/CMM (02/20/18 12:50 PM) RBC [4.20-5.40 M/CMM] 4.68 M/CMM (02/20/18 12:50 PM) Hgb [12.0-16.0 g/dL] 14.3 g/dL (02/20/18 12:50 PM) Hct [36.0-48.0 %] 41.5 % (02/20/18 12:50 PM) MCV [80.0-98.0 fL] 88.6 fL (02/20/18 12:50 PM) MCH [27.0-31.0 pg] 30.5 pg (02/20/18 12:50 PM) MCHC [32.0-36.0 g/dL] 34.4 g/dL (02/20/18 12:50 PM) RDW [11.5-14.5 %] 13.1 % (02/20/18 12:50 PM) MPV [7.4-10.4 fL] 8.2 fL (02/20/18 12:50 PM) Platelet [133-450 K/CMM] 286 K/CMM (02/20/18 12:50 PM) Segs [45.0-75.0 %] 63.8 % (02/20/18 12:50 PM) Lymphocytes [20.0-40.0 %] 26.4 % (02/20/18 12:50 PM) Monocytes [2.0-12.0 %] 7.5 % (02/20/18 12:50 PM) Eosinophils [0.0-4.0 %] 1.7 % (02/20/18 12:50 PM) Basophils [0.0-1.0 %] 0.6 % (02/20/18 12:50 PM) Segs-Bands # [1.5-8.1 K/CMM] 5.6 K/CMM (02/20/18 12:50 PM) Lymphocytes # [1.0-5.5 K/CMM] 2.3 K/CMM (02/20/18 12:50 PM) Monocytes # [0.0-0.8 K/CMM] 0.7 K/CMM (02/20/18 12:50 PM) Eosinophils # [0.0-0.5 K/CMM] 0.1 K/CMM (02/20/18 12:50 PM) Basophils # [0.0-0.2 K/CMM] 0.1 K/CMM (02/20/18 12:50 PM) Immunizations No data available for this section Procedures Procedure Date Related Diagnosis Body Site Status Operation1 03/27/16 Completed Tonsillectomy 2006 Completed Breast augmentation 2005 Completed ACL - Repair of anterior cruciate 1997 Completed ligament Appendectomy 1986 Completed Abdominoplasty Completed section2 Completed 1Examination under anesthesia, fissurectomy with Botox chemical denervation of anal sphincter 100 units with subcutaneous fistulotomy, excision of skin tag x 2 and ligation of internal hemorrhoids x 3 with hemorrhoidopexy and mucopexy. Excision of left inner thigh skin mole.2x 4 Social History Social History Type Response Substance Abuse Use: None. Alcohol Current, Type Beer. Frequency: 1-2 times per month. Smoking Status Former smoker; Type: Cigarettes; Exposure to Tobacco Smoke None ; Cigarette Smoking Last 365 Days Yes; Reg Smoking Cessation Counseling No; Other Tobacco Frequency 1cig/day. Has not had anything to smoke for 2 months.; entered on: 02/20/18 Assessment and Plan No data available for this section
--- OUTSIDE RECORDS SUMMARY | 2018-05-04 10:29 | XMS REPORT | Summary of Care ---
:1980 Author Organization [facility] Address [address] [place], [place] [address]- Encounter HQ Mauricio_eneida([facility]) [phone] Date(s): 11/20/17 - 11/26/17 [facility] [address] [place] [address]- [phone] Encounter Diagnosis Lower abdominal pain, unspecified (Final) - Unspecified abdominal pain (Final) - 12/02/17 Other gastritis without bleeding (Final) - Diaphragmatic hernia without obstruction or gangrene (Final) - Dehydration (Final) - Discharge Disposition: Home or Self Care Attending Physician: Walter Moreno DO Admitting Physician: Walter Moreno DO Vital Signs Most recent to oldest 1 2 3 [Reference Range]: Height 165.1 cm 165.1 cm (11/20/17 11:06 PM) (11/20/17 12:02 PM) Temperature Oral [96.4-99.1 98.6 DegF 98.6 DegF 98.3 DegF DegF] (11/26/17 7:38 AM) (11/26/17 5:13 AM) (11/26/17 12:46 AM) Blood Pressure [90-140/60-90 123/79 mmHg 118/75 mmHg 116/79 mmHg mmHg] (11/26/17 7:38 AM) (11/26/17 5:13 AM) (11/26/17 12:46 AM) Respiratory Rate [14-20 14 BRMIN 16 BRMIN 16 BRMIN BRMIN] (11/26/17 7:38 AM) (11/26/17 5:13 AM) (11/26/17 12:46 AM) Peripheral Pulse Rate 60 bpm 67 bpm 61 bpm [60-100 bpm] (11/26/17 7:38 AM) (11/26/17 5:13 AM) (11/26/17 12:46 AM) Weight 80.955 kg 81.818 kg 81.818 kg (11/23/17 5:32 PM) (11/20/17 11:06 PM) (11/20/17 12:02 PM) Body Mass Index 30.02 m2 30.02 m2 (11/20/17 11:06 PM) (11/20/17 12:02 PM) Problem List Condition Effective Dates Status Health Status Informant Abdominal distention(Confirmed) Active Abdominal pain(Confirmed) Active Erosive gastritis(Confirmed) Active Acute pyelonephritis(Confirmed) Resolved Appendicitis(Confirmed) Resolved Asthmatic bronchitis(Confirmed) Active Cholelithiasis(Confirmed) Active delivery(Confirmed) Resolved Chronic anxiety(Confirmed) Active Crohns disease(Confirmed) Resolved Diarrhea(Confirmed) Active Hemorrhoids(Confirmed) Resolved History of Active nephrolithiasis(Confirmed) Hypertensive disorder(Confirmed) Active MRSA(Confirmed)1, 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 Allergies, Adverse Reactions, Alerts Substance Reaction Severity Status codeine Codeine Active Codeine Codeine Medications acetaminophen 1,000 mg, Route: PO, Q6Hnow, Dosing Weight 81.818, kg, Start date: 11/20/17 21: 00:00 EVENTS AND PROMOTIONS ASSISTANT, Duration: 30 day, Stop date: 12/20/17 15:00:00 EVENTS AND PROMOTIONS ASSISTANT Start Date: 11/20/17 Stop Date: 11/20/17 Status: Canceledacetaminophen 1,000 mg, 100 mL, Route: IV, Drug form: INJ, Q6H, Dosing Weight 81.818, kg, PRN Pain Score 1-5, Start date: 11/20/17 20:25:00 EVENTS AND PROMOTIONS ASSISTANT, Duration: 30 day, Stop date: 12/20/17 20:24:00 EVENTS AND PROMOTIONS ASSISTANT Notes: Infuse over 15 minutesDo not exceed 4gm/day of acetaminophen MEDICATION WASTE ProductSize: 1000 mgProduct Wasted: ___ mg Start Date: 11/20/17 Stop Date: 11/21/17 Status: DiscontinuedAtivan 1 mg, 2 tab, Route: PO, Drug form: TAB, BID, Dosing Weight 80.955, kg, PRN Anxiety, Start date: 11/25/17 17:23:00 EVENTS AND PROMOTIONS ASSISTANT, Duration: 30 day, Stop date: 17:22:00 EVENTS AND PROMOTIONS ASSISTANT Notes: (Same as: Ativan) Start Date: 11/25/17 Stop Date: 11/26/17 Status: Discontinueddicyclomine 20 mg, 2 cap, Route: PO, Drug form: CAP, QID, Dosing Weight 80.955, kg, Start date: 11/25/17 17:00:00 EVENTS AND PROMOTIONS ASSISTANT, Duration: 30 day, Stop date: 12/25/17 13:00:00 EVENTS AND PROMOTIONS ASSISTANT Notes: (Same as: Bentyl) Start Date: 11/25/17 Stop Date: 11/26/17 Status: Discontinueddicyclomine 20 mg oral tablet 20 mg=1 tab, PO, QID, PRN abdominal cramps, X 14 day, # 50 tab, 0 Refill(s), Pharmacy: [id number] Start Date: 11/24/17 Stop Date: 12/05/17 Status: CompletedDilaudid 6 mg, 3 tab, Route: PO, Drug form: TAB, Q4H, Dosing Weight 81.818, kg, PRN Pain Score 6-10, Start date: 11/20/17 22:28:00 EVENTS AND PROMOTIONS ASSISTANT, Duration: 30 day, Stop date: 08/27 22:27:00 EVENTS AND PROMOTIONS ASSISTANT Notes: (Same as: Dilaudid) Start Date: 11/20/17 Stop Date: 11/26/17 Status: DiscontinuedDilaudid 1 mg, 1 mL, Route: IVP, Drug form: INJ, ONCE, Dosing Weight 81.818, kg, Priority : STAT, Start date: 11/20/17 23:50:00 EVENTS AND PROMOTIONS ASSISTANT, Stop date: 11/20/17 23:50:00 EVENTS AND PROMOTIONS ASSISTANT Notes: Same as: Dilaudid Start Date: 11/20/17 Stop Date: 11/21/17 Status: CompletedfentaNYL 100 microgram, Route: IVP, ONCE, Dosing Weight 81.818, kg, Priority: STAT, Start date: 11/20/17 15:58:00 EVENTS AND PROMOTIONS ASSISTANT, Stop date: 11/20/17 15:58:00 EVENTS AND PROMOTIONS ASSISTANT Start Date: 11/20/17 Stop Date: 11/20/17 Status: CompletedfentaNYL 100 microgram, Route: IVP, ONCE, Dosing Weight 81.818, kg, Priority: STAT, Start date: 11/20/17 19:08:00 EVENTS AND PROMOTIONS ASSISTANT, Stop date: 11/20/17 19:08:00 EVENTS AND PROMOTIONS ASSISTANT Start Date: 11/20/17 Stop Date: 11/20/17 Status: CompletedfentaNYL 50 microgram, 1 mL, Route: IV, Drug form: INJ, ONCE, Dosing Weight 81.818, kg, Priority: STAT, Startdate: 11/20/17 20:55:00 EVENTS AND PROMOTIONS ASSISTANT, Stop date: 11/20/17 20:55:00 EVENTS AND PROMOTIONS ASSISTANT Notes: (Same as: Sublimaze) Preservative free. Start Date: 11/20/17 Stop Date: 11/20/17 Status: CompletedketOROLAC 30 mg, 1 mL, Route: IVP, Drug form: INJ, Q6Hnow, Dosing Weight 81.818, kg, Start date: 11/20/17 21:00:00 EVENTS AND PROMOTIONS ASSISTANT, Duration: 24 hr, Stop date: 11/21/17 15:00: 00 EVENTS AND PROMOTIONS ASSISTANT Notes: (Same as:Toradol) IV bolus must be given >15 seconds. Give IM administration slowly and deeply into the muscle.Not for use > 4 days MEDICATION WASTE Product Size: 30 mgProduct Wasted: ___ mg Start Date: 11/20/17 Stop Date: 11/19/17 Status: Discontinuedmetoprolol tartrate 25 mg, 1 tab, Route: PO, Drug form: TAB, Q12H, Dosing Weight 81.818, kg, Start date: 11/22/17 13:00:00 EVENTS AND PROMOTIONS ASSISTANT, Duration: 30 day, Stop date: 12/22/17 9:00:00 EVENTS AND PROMOTIONS ASSISTANT Notes: (Same as: Lopressor) Start Date: 11/22/17 Stop Date: 11/26/17 Status: Discontinuedmorphine Sulfate 4 mg, 1 mL, Route: IVP, Drug form: SOLN, Q4H, Dosing Weight 81.818, kg, PRN Pain Score 7-10, Start date: 11/20/17 20:22:00 EVENTS AND PROMOTIONS ASSISTANT, Duration: 30 day, Stop date : 12/20/17 20:21:00 EVENTS AND PROMOTIONS ASSISTANT Notes: (Same as:MORPhine Sulfate) Start Date: 11/20/17 Stop Date: 11/19/17 Status: Discontinuedmorphine Sulfate 4 mg, 2 mL, Route: IVP, Drug form: SOLN, ONCE, Dosing Weight 81.818, kg, Priority: STAT, Start date:11/20/17 15:25:00 EVENTS AND PROMOTIONS ASSISTANT, Stop date: 11/20/17 15:25:00 EVENTS AND PROMOTIONS ASSISTANT Start Date: 11/20/17 Stop Date: 11/20/17 Status: Completedmorphine Sulfate 2 mg, 1 mL, Route: IVP, Drug form: SOLN, ONCE, Dosing Weight 81.818, kg, Start date: 11/21/17 13:02:00 EVENTS AND PROMOTIONS ASSISTANT, Stop date: 11/21/17 13:02:00 EVENTS AND PROMOTIONS ASSISTANT Start Date: 11/21/17 Stop Date: 11/21/17 Status: Completedmorphine Sulfate 4 mg, 1 mL, Route: IVP, Drug form: SOLN, ONCE, Dosing Weight 81.818, kg, Start date: 11/22/17 8:12:00 EVENTS AND PROMOTIONS ASSISTANT, Stop date: 11/22/17 8:12:00 EVENTS AND PROMOTIONS ASSISTANT Notes: (Same as:MORPhine Sulfate) Start Date: 11/22/17 Stop Date: 11/22/17 Status: CompletedNS (Bolus) IV 2,000 mL, 2000 ml/hr, Infuse Over: 1 hr, Route: IV, 2,000, Drug form: INJ, ONCE , Priority: STAT, Dosing Weight 81.818 kg, Start date: 11/20/17 19:31:00 EVENTS AND PROMOTIONS ASSISTANT, Stop date: 11/20/17 19:31:00 EVENTS AND PROMOTIONS ASSISTANT Start Date: 11/20/17 Stop Date: 11/20/17 Status: Completedondansetron 4 mg, 2 mL, Route: IVP, Drug form: INJ, Q6H, Dosing Weight 81.818, kg, PRN Nausea & Vomiting, Start date: 11/20/17 20:22:00 EVENTS AND PROMOTIONS ASSISTANT, Duration: 30 day, Stop date: 12/20/17 20:21:00 EVENTS AND PROMOTIONS ASSISTANT Notes: (Same as: Zofran) MEDICATION WASTE Product Size: 4 mgProduct Wasted: ___ mg Start Date: 11/20/17 Stop Date: 11/26/17 Status: DiscontinuedPhenergan 12.5 mg, 1 tab, Route: PO, Drug form: TAB, Q6H, Dosing Weight 81.818, kg, PRN Nausea, Start date: 11/21/17 14:46:00 EVENTS AND PROMOTIONS ASSISTANT, Duration: 30 day, Stop date: 14:45:00 EVENTS AND PROMOTIONS ASSISTANT Notes: (Same as: Phenergan) Start Date: 11/21/17 Stop Date: 11/26/17 Status: DiscontinuedPhenergan 12.5 mg oral tablet 12.5 mg=1 tab, PO, Q6H, PRN Nausea & Vomiting, # 28 tab, 0 Refill(s), Pharmacy: [facility] [id number] Start Date: 11/24/17 Stop Date: 12/24/17 Status: DiscontinuedProtonix 40 mg, 1 tab, Route: PO, Drug form: ECTAB, Before Dinner, Dosing Weight 81.818, kg, Start date: 11/21/17 16:30:00 EVENTS AND PROMOTIONS ASSISTANT, Duration: 30 day, Stop date: 12/20/17 16: 30:00 EVENTS AND PROMOTIONS ASSISTANT Notes: Tablet should not be chewed or crushed.(Same as: Protonix) Start Date: 11/21/17 Stop Date: 11/26/17 Status: DiscontinuedProtonix 40 mg, Route: IVP, Drug form: INJ, ONCE, Dosing Weight 81.818, kg, Start date: 11/21/17 10:14:00 EVENTS AND PROMOTIONS ASSISTANT, Stop date: 11/21/17 10:14:00 EVENTS AND PROMOTIONS ASSISTANT Start Date: 11/21/17 Stop Date: 11/21/17 Status: CompletedProtonix 40 mg oral enteric coated tablet 40 mg=1 tab, PO, Daily, # 30 tab, 0 Refill(s), Pharmacy: [facility] [id number] Start Date: 11/24/17 Stop Date: 01/30/18 Status: DiscontinuedReglan 10 mg, 2 mL, Route: IVP, Drug form: SOLN, Q6H, Dosing Weight 81.818, kg, Start date: 11/21/17 12:00:00 EVENTS AND PROMOTIONS ASSISTANT, Duration: 1 day, Stop date: 11/22/17 6:00:00 EVENTS AND PROMOTIONS ASSISTANT Notes: (Same as: Reglan) Start Date: 11/21/17 Stop Date: 11/22/17 Status: CompletedRocephin + sterile water 10 mL 1 gm, Route: IVP, [id number], Dosing Weight 81.818, kg, Start date: 11/21/17 6:00: 00 EVENTS AND PROMOTIONS ASSISTANT, Duration: 3 day, Stop date: 11/23/17 6:00:00 EVENTS AND PROMOTIONS ASSISTANT, ABX Indication: Urinary Tract Infection Notes: (Same As: Rocephin).Use with 100 mL NS and infuse over 30 min MEDICATION WASTE Product Size: 1000 mgProduct Wasted: ___ mg Start Date: 11/21/17 Stop Date: 11/23/17 Status: CompletedSaline Flush 0.9% 10 ml, Route: IVP, Drug Form: INJ, Dosing Weight 81.818, kg, PRN, PRN Line Flush , Start date: 11/20/17 20:22:00 EVENTS AND PROMOTIONS ASSISTANT, Duration: 30 day, Stop date: 12/20/17 20:21 :00 EVENTS AND PROMOTIONS ASSISTANT Notes: (Same as: BD Posiflush) Start Date: 11/20/17 Stop Date: 11/26/17 Status: DiscontinuedSodium Chloride 0.9% IV 1,000 mL 1,000 mL, Rate: 60 ml/hr, Infuse over: 16.7 hr, Route: IV, Dosing Weight 80.955 kg, Total Volume: 1,000, Start date: 11/20/17 20:22:00 EVENTS AND PROMOTIONS ASSISTANT, Stop date: 12/20/17 20:21:00 EVENTS AND PROMOTIONS ASSISTANT, 1.95, m2 Start Date: 11/20/17 Stop Date: 11/26/17 Status: DiscontinuedSodium Chloride 0.9% IV 1000 mL 1,000 mL, Rate: 25 ml/hr, Infuse over: 40 hr, Route: IV, Dosing Weight 81.818 kg , Total Volume: 1,000, Start date: 11/22/17 9:48:00 EVENTS AND PROMOTIONS ASSISTANT, Duration: 30 day, Stop date: 12/22/17 9:47:00 EVENTS AND PROMOTIONS ASSISTANT, 1.96, m2 Start Date: 11/22/17 Stop Date: 11/22/17 Status: DiscontinuedTylenol 1,000 mg, 31.23 mL, Route: PO, Drug form: LIQ, Q6H, PRN Pain Score 1-5, Start date: 11/21/17 10:50:00 EVENTS AND PROMOTIONS ASSISTANT, Duration: 30 day, Stop date: 12/21/17 10:49:00 EVENTS AND PROMOTIONS ASSISTANT Notes: Max [id number]=8499fa/day (4 gm/day). (Same as: Tylenol) Start Date: 11/21/17 Stop Date: 11/26/17 Status: DiscontinuedZofran 4 mg, 2 mL, Route: IVP, Drug form: INJ, ONCE, Dosing Weight 81.818, kg, Priority : STAT, Start date: 11/20/17 15:26:00 EVENTS AND PROMOTIONS ASSISTANT, Stop date: 11/20/17 15:26:00 EVENTS AND PROMOTIONS ASSISTANT Notes: (Same as: Zofran) MEDICATION WASTE Product Size: 4 mgProduct Wasted: ___ mg Start Date: 11/20/17 Stop Date: 11/20/17 Status: Completed Results ELECTROLYTES Most recent to oldest [Reference Range]: 1 2 Sodium Lvl [135-145 mEq/L] 138 mEq/L 142 mEq/L (11/20/17 8:04 PM) (11/20/17 12:28 PM) Potassium Lvl [3.5-5.1 mEq/L] 3.6 mEq/L 4.3 mEq/L (11/20/17 8:04 PM) (11/20/17 12:28 PM) Chloride Lvl [95-109 mEq/L] 105 mEq/L 109 mEq/L (11/20/17 8:04 PM) (11/20/17 12:28 PM) CO2 [24-32 mEq/L] 27 mEq/L 27 mEq/L (11/20/17 8:04 PM) (11/20/17 12:28 PM) AGAP [10.0-20.0 mEq/L] 9.6 mEq/L 10.3 mEq/L *LOW* (11/20/17 12:28 PM) (11/20/17 8:04 PM) CHEM PANEL Most recent to oldest [Reference Range]: 1 2 Creatinine Lvl [0.50-1.40 mg/dL] 0.58 mg/dL 0.62 mg/dL (11/20/17 8:04 PM) (11/20/17 12:28 PM) eGFR 120 mL/min/1.73m2 1 117 mL/min/1.73m2 2 *NA* *NA* (11/20/17 8:04 PM) (11/20/17 12:28 PM) BUN [7-22 mg/dL] 10 mg/dL 12 mg/dL (11/20/17 8:04 PM) (11/20/17 12:28 PM) B/C Ratio [6-25] 17 19 (11/20/17 8:04 PM) (11/20/17 12:28 PM) Glucose Lvl [70-99 mg/dL] 91 mg/dL 88 mg/dL (11/20/17 8:04 PM) (11/20/17 12:28 PM) Total Protein [6.4-8.4 g/dL] 6.4 g/dL 7.4 g/dL (11/20/17 8:04 PM) (11/20/17 12:28 PM) Albumin Lvl [3.5-5.0 g/dL] 3.5 g/dL 3.7 g/dL (11/20/17 8:04 PM) (11/20/17 12:28 PM) Globulin [2.7-4.2 g/dL] 2.9 g/dL 3.7 g/dL (11/20/17 8:04 PM) (11/20/17 12:28 PM) A/G Ratio [0.7-1.6] 1.2 1.0 (11/20/17 8:04 PM) (11/20/17 12:28 PM) Calcium Lvl [8.5-10.5 mg/dL] 8.3 mg/dL 8.5 mg/dL *LOW* (11/20/17 12:28 PM) (11/20/17 8:04 PM) ALT [0-65 unit/L] 17 unit/L 17 unit/L (11/20/17 8:04 PM) (11/20/17 12:28 PM) AST [0-37 unit/L] 7 unit/L 11 unit/L (11/20/17 8:04 PM) (11/20/17 12:28 PM) Alk Phos [39-136 unit/L] 47 unit/L 51 unit/L (11/20/17 8:04 PM) (11/20/17 12:28 PM) Bili Total [0.2-1.3 mg/dL] 0.2 mg/dL 0.2 mg/dL (11/20/17 8:04 PM) (11/20/17 12:28 PM) Lactic Acid Lvl [0.5-2.2 mMol/L] 0.5 mMol/L (11/20/17 8:04 PM) 1Result Comment: The eGFR is calculated [...] young, healthy individualsthe eGFR will be >90 mL/min/1.73m2. [...] Range]: 1 2 U Preg [Negative] Negative (11/20/17 3:06 PM) URINE AND STOOL Most recent to oldest [Reference Range]: 1 2 UA Turbidity [Clear] Marked Slight *ABN* *ABN* (11/24/17 11:05 PM) (11/20/17 3:06 PM) UA Color Red Ltyellow *NA* *NA* (11/24/17 11:05 PM) (11/20/17 3:06 PM) UA pH [5.0-8.0] 7.0 6.0 (11/24/17 11:05 PM) (11/20/17 3:06 PM) UA Spec Grav [<=1.030] 1.008 1.017 (11/24/17 11:05 PM) (11/20/17 3:06 PM) UA Glucose [Negative mg/dL] Negative mg/dL Negative mg/dL *NA* *NA* (11/24/17 11:05 PM) (11/20/17 3:06 PM) UA Blood [Negative] Large Negative *ABN* (11/20/17 3:06 PM) (11/24/17 11:05 PM) UA Ketones [Negative mg/dL] Negative mg/dL Negative mg/dL *NA* *NA* (11/24/17 11:05 PM) (11/20/17 3:06 PM) UA Protein [Negative mg/dL] 30 mg/dL Negative mg/dL *ABN* (11/20/17 3:06 PM) (11/24/17 11:05 PM) UA Urobilinogen [0.1-1.0 mg/dL] <=1.0 mg/dL <=1.0 mg/dL *NA* *NA* (11/24/17 11:05 PM) (11/20/17 3:06 PM) UA Bili [Negative] Negative Negative *NA* *NA* (11/24/17 11:05 PM) (11/20/17 3:06 PM) UA Leuk Est [Negative] Moderate Trace *ABN* *ABN* (11/24/17 11:05 PM) (11/20/17 3:06 PM) UA Nitrite [Negative] Negative Negative (11/24/17 11:05 PM) (11/20/17 3:06 PM) UA WBC [0-5 /HPF] 2 /HPF 3 /HPF (11/24/17 11:05 PM) (11/20/17 3:06 PM) UA RBC [0-2 /HPF] 35 /HPF 1 /HPF *HI* (11/20/17 3:06 PM) (11/24/17 11:05 PM) UA Bacteria [None Seen /HPF] Few /HPF Occasional /HPF *NA* *NA* (11/24/17 11:05 PM) (11/20/17 3:06 PM) UA Sq Epi [Few /LPF] Many /LPF Many /LPF *ABN* *ABN* (11/24/17 11:05 PM) (11/20/17 3:06 PM) UA Mucus [None Seen /LPF] Few /LPF Few /LPF *NA* *NA* (11/24/17 11:05 PM) (11/20/17 3:06 PM) UA Hyph Yeast [None Seen] Occasional *ABN* (11/24/17 11:05 PM) IMMUNOLOGY Most recent to oldest [Reference Range]: 1 2 CRP [<=2.9 mg/L] <2.9 mg/L (11/21/17 1:14 PM) HEMATOLOGY Most recent to oldest [Reference Range]: 1 2 WBC [3.7-10.4 K/CMM] 8.2 K/CMM 7.8 K/CMM (11/20/17 8:04 PM) (11/20/17 12:28 PM) RBC [4.20-5.40 M/CMM] 4.15 M/CMM 4.38 M/CMM *LOW* (11/20/17 12:28 PM) (11/20/17 8:04 PM) Hgb [12.0-16.0 g/dL] 12.8 g/dL 13.6 g/dL (11/20/17 8:04 PM) (11/20/17 12:28 PM) Hct [36.0-48.0 %] 37.9 % 40.8 % (11/20/17 8:04 PM) (11/20/17 12:28 PM) MCV [80.0-98.0 fL] 91.4 fL 93.1 fL (11/20/17 8:04 PM) (11/20/17 12:28 PM) MCH [27.0-31.0 pg] 30.9 pg 31.1 pg (11/20/17 8:04 PM) *HI* (11/20/17 12:28 PM) MCHC [32.0-36.0 g/dL] 33.8 g/dL 33.5 g/dL (11/20/17 8:04 PM) (11/20/17 12:28 PM) RDW [11.5-14.5 %] 12.9 % 12.9 % (11/20/17 8:04 PM) (11/20/17 12:28 PM) MPV [7.4-10.4 fL] 8.4 fL 8.4 fL (11/20/17 8:04 PM) (11/20/17 12:28 PM) Platelet [133-450 K/CMM] 247 K/CMM 273 K/CMM (11/20/17 8:04 PM) (11/20/17 12:28 PM) Segs [45.0-75.0 %] 55.7 % 56.2 % (11/20/17 8:04 PM) (11/20/17 12:28 PM) Lymphocytes [20.0-40.0 %] 32.1 % 30.8 % (11/20/17 8:04 PM) (11/20/17 12:28 PM) Monocytes [2.0-12.0 %] 7.6 % 7.5 % (11/20/17 8:04 PM) (11/20/17 12:28 PM) Eosinophils [0.0-4.0 %] 3.8 % 4.3 % (11/20/17 8:04 PM) *HI* (11/20/17 12:28 PM) Basophils [0.0-1.0 %] 0.8 % 1.2 % (11/20/17 8:04 PM) *HI* (11/20/17 12:28 PM) Segs-Bands # [1.5-8.1 K/CMM] 4.6 K/CMM 4.4 K/CMM (11/20/17 8:04 PM) (11/20/17 12:28 PM) Lymphocytes # [1.0-5.5 K/CMM] 2.6 K/CMM 2.4 K/CMM (11/20/17 8:04 PM) (11/20/17 12:28 PM) Monocytes # [0.0-0.8 K/CMM] 0.6 K/CMM 0.6 K/CMM (11/20/17 8:04 PM) (11/20/17 12:28 PM) Eosinophils # [0.0-0.5 K/CMM] 0.3 K/CMM 0.3 K/CMM (11/20/17 8:04 PM) (11/20/17 12:28 PM) Basophils # [0.0-0.2 K/CMM] 0.1 K/CMM 0.1 K/CMM (11/20/17 8:04 PM) (11/20/17 12:28 PM) Sed Rate [0-20 mm/hr] 3 mm/hr (11/21/17 1:14 PM) MOLECULAR DIAGNOSTIC Most recent to oldest [Reference Range]: 1 2 C difficile DNA [Negative] Negative (11/24/17 4:42 PM) Immunizations No data available for this [...] months.; entered on: 02/20/18 Assessment and Plan Extracted from: Title: GI Author: Grazyna Archibald NP Date: 11/26/17 Progress Note - Daily [facility] Completed: Nov, 13:54 by Grazyna Archibald NP RM: 425 - 1P, SE C4B SHALOM RIGGS 37y (: 1980) F Attending: Walter Moreno DO Service: Internal Medicine Reason for Admission: INTRACTABLE LOWER ABDOMINAL PAIN Working DRG: None Documented Code status: Full Code [Ordered] Current diet: Isolation: None Documented Allergies: codeine(Codeine, Codeine, Codeine) SUBJECTIVE pt still c/o abd discomfort and bloating n/v, but RN reported that pt ate all of breakfast tray, no vomiting witnessed. OBJECTIVE (no lab data in past 24 hours) Warner still necessary (Yes/No): Line still necessary (Yes/No): Vitals Tmp(F) Pulse BP RR SpO2 FIO2 11/26 07:38 98.6 60 123/79 14 --- --- 11/26 05:13 98.6 67 118/75 16 --- --- 11/26 00:46 98.3 61 116/79 16 --- --- 11/25 20:32 98.2 68 134/94 16 --- --- 11/25 17:00 98.4 64 167/108 16 --- --- 24 Hr Tmax: 99.0F (37.22c) at 11/25 14:11 Vital Signs are the last 5 in the past 48 hours. Date Wt(kg) Wt(lb) Ht(cm) Ht(in) Method 11/23 80.95 178.10 Measured 11/20 (initial) 81.82 180.00 Estimated 11/20 165.10 65.00 Stated I&O Record In Out Bal 11/26 24hr Tot 0 0 0 11/25 24hr Tot 720 0 720 Medications (0) Active Scheduled Meds: None Unscheduled Meds: None PRN Meds: None One Time Meds: None Continuous Infusions: None General: , No acute distress. HENT: Normocephalic, Neck: Supple, Non-tender. Respiratory: Lungs are clear to auscultation, Respirations are non-labored, Breath sounds are equal Cardiovascular: Normal rate, Regular rhythm, No murmur Gastrointestinal: Soft, mildly tender in epigastric and RLQ, Non-distended. no rebound or guarding Integumentary: Warm, Dry, [place]. Neurologic: Alert, Oriented x 3 Psychiatric: Cooperative, Appropriate mood & affect. IMPRESSION 1. Nausea and Vomiting -EGD 11/22/16- erosove gastritis, small hiatal hernia -normal HIDA scan - normal GET - benign mucosa on biopsies 2. Abdominal cramping- improved 3. Diarrhea - c diff negative 4. questionable history of Crohns diseae- not on any therapy 5. Colonoscopy in 2016- S/P hemorrhoidectomy and fistulectomy. Normal colonoscopy otherwise RECOMMENDATIONS 1. Antiemetics PRN 2. PPI QD 3. Avoid NSAIDS 4. Follow up outpatient with Dr. Jeter in 1- 2 weeks 5. OK to d/c from GI standpoint Patient not seen face to face, discharged prior to my rounds Extracted from: Title: Discharge Summary * Author: Walter Moreno DO Date: 11/24/17 Patient: SHALOM RIGGS Age: 37 years Sex: Female : 1980 Associated Diagnoses: None Author: Walter Moreno DO Results Review General results Most recent results Physical Examination VS/Measurements Measurements from flowsheet : Measurements 11/23/2017 17:32 Heparin Dosing Weight (kg) 66.58 11/23/2017 17:32 Weight 80.955 kg Dosing Weight Difference Percent -1.055 % Dosing Weight Collection Method Measured , Vital Signs (last 24 hrs) Last Charted Temp Oral 98.7 DegF (NOV 24:) Heart Rate Peripheral 70 bpm (NOV 24:) Resp Rate 16 BRMIN (NOV 24:30) SBP H 148mmHg (NOV 24:) DBP H 94mmHg (NOV 24:) SpO2 100 % (NOV 23 23:30) Weight 80.955 kg (NOV 23 17:32) Hospital Course 37-year-old woman history of nephrolithiasis presented with acute abdominal pain been going on for several days also with nausea and vomiting. Given with that patient was admitted to my service for fur ther evaluation. CT abdomen pelvis as well as pelvic ultrasound has been negative for any pathology. Given with that gastroenterology has been consulted for further evaluation ultrasound of abdomen sh ow a possibility of a distended gallbladder in which a HIDA was done which shows normal function. Apart from that no other issues labs have remained remarkably normal with no further workup on that asp ect of it. Inflammatory markers has been normals which does not show any inflammatory response from her history of Crohn's. Given with that was gastroenterology seen patient no further workup, patient can be discharged home with follow-up with them. Discharge time: 40 minutes Medication: See medication reconciliation form Discharge Plan Discharge Summary Plan Discharge Status: stable. Discharge instructions given: to patient, to family member. Discharge disposition: discharge to home. Prescriptions: continue same medications, called to pharmacy. Diagnosis Abdominal pain History of Crohn's disease Presumed UTI-rule out Dehydration Erosive gastritis . Education and Follow-up Counseled: patient, regarding diagnosis, regarding treatment, regarding medications. Addendum by Walter Moreno DO on Patient was supposed to be discharged on . However gastric emptying study was ordered by gastroenterology to delineate the function of the stomach and which test was done on 11/25/2018 which wa 11/26/2017 11:29 s negative for any abnormalities. Normal functioning gastric emptying study. Patient overnight and advance her diet and which followed the patient was tolerating well. Rediscuss on the day of discharge her tests imaging blood work. This has been all negative. Redrawn UA does not appear to be a good sample given there is to many squamous epithelial cell and which might affect the results. No signs of UTI. Pathology of the biopsies of the EGD has been erosive, negative for any H. pylori. Discussed patient a trial of Bentyl at this time in which she will need to take. Patient will follow up with gastroenterology for further evaluation. Patient requested a surgical consultation, however there is no surgical and indications at this time given there is no acute gallbla dder pathology as well as acute abdominal pathology. So given with that patient was discharged home for her to follow-up specialist. Additional discharge time: 45 minutes Extracted from: Title: GI Consult * Author: Surya Jeter MD Date: 11/21/17 Impression and Plan IMPRESSION 1. Nausea and Vomiting 2. Abdominal cramping 3. Diarrhea 4. questionable history of Crohns diseae- not on any therapy 5. Colonoscopy in 2016- S/P hemorrhoidectomy and fistulectomy. Normal colonoscopy otherwise RECOMMENDATIONS 1. Antiemetics PRN 2. Send stool for c diff 3. Consents for EGD tomorrow with Dr. Hensley if symptoms persist , alternatives risks and complications discussed 4. Clear liquids 5. NPO after midnight GI ATTENDING I have examined the patient with the SECOND FLOOR OPERATOR and confirmed the essential components of history, physical examination, diagnosis and treatment plan. I agree with the patient's care as documented by the SECOND FLOOR OPERATOR, and amended as needed herein by me. Dr Johanne Hensley will be covering me over this weekend Please call with questions/concerns over the weekend Surya Jeter MD GI Attending Extracted from: Title: Clinical Document Author: Jarred Encinas MD Date: 11/21/17 full H&P dictated, #[id number] date/time: 11/20/2017 20:30
--- OUTSIDE RECORDS SUMMARY | 2018-05-04 10:29 | XMS REPORT | Summary of Care ---
:1980 Author Organization [facility] Address [address] [place] [address]- Encounter HQ Encntr_eneida(FIN) [id number] Date(s): 12/24/17 - 12/24/[address], [address] [address]- [phone] Discharge Disposition: Home or Self Care Attending Physician: Flaco Young MD Vital Signs Most recent to oldest [Reference Range]: 1 Height 165.1 cm (12/24/17 10:00 AM) Temperature Oral [96.4-99.1 DegF] 98.5 DegF (12/24/17 10:00 AM) Blood Pressure [90-140/60-90 mmHg] 144/101 mmHg *HI* (12/24/17 10:00 AM) Peripheral Pulse Rate [60-100 bpm] 85 bpm (12/24/17 10:00 AM) Weight 76.42 kg (12/24/17 10:00 AM) Body Mass Index 28.04 m2 (12/24/17 10:00 AM) Problem List Condition Effective Dates Status Health Status Informant Abdominal distention(Confirmed) Active Abdominal pain(Confirmed) Active Erosive gastritis(Confirmed) Active Acute pyelonephritis(Confirmed) Resolved Appendicitis(Confirmed) Resolved Asthmatic bronchitis(Confirmed) Active Cholelithiasis(Confirmed) Active delivery(Confirmed) Resolved Chronic anxiety(Confirmed) Active Crohns disease(Confirmed) Resolved Diarrhea(Confirmed) Active Hemorrhoids(Confirmed) Resolved History of Active nephrolithiasis(Confirmed) Hypertensive disorder(Confirmed) Active MRSA(Confirmed)1, 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 Allergies, Adverse Reactions, Alerts Substance Reaction Severity Status codeine Codeine Active Codeine Codeine Medications dicyclomine 20 mg oral tablet 40 mg=2 tab, PO, QID, PRN Cramps, # 180 tab, 0 Refill(s), [id number] Start Date: 12/24/17 Stop Date: 12/24/17 Status: Discontinueddicyclomine 20 mg oral tablet 20 mg=1 tab, PO, QID, # 40 tab, 0 Refill(s), [facility] [id number] Start Date: 12/24/17 Stop Date: 03/21/18 Status: CompletedPARoxetine 30 mg oral tablet 30 mg=1 tab, PO, Daily, # 30 tab, 2 Refill(s), [facility] [id number] Start Date: 12/24/17 Stop Date: 12/24/17 Status: DiscontinuedPARoxetine 30 mg oral tablet 30 mg=1 tab, PO, Daily, # 90 tab, 1 Refill(s), [facility] [id number] Start Date: 12/24/17 Stop Date: 03/21/18 Status: Completed Results No data available for this section Immunizations No data available for this section [...] to smoke for 2 months.; entered on: 03/20/18 Assessment and Plan No data available for this section
--- OUTSIDE RECORDS SUMMARY | 2018-05-04 10:29 | XMS REPORT | Summary of Care ---
:1980 Author Organization [facility] Address [address] [place], [place] [address]- Encounter HQ Gerardontr_eneida(FIN) [id number] Date(s): 03/27/17 - 03/27/17 [facility] [address] [place] [address]- Discharge Diagnosis: Musculoskeletal pain Discharge Diagnosis: Back pain Discharge Disposition: Home or Self Care Attending Physician: Fantasma Griffin MD Vital Signs Most recent to oldest [Reference Range]: 1 2 Height 165.1 cm (03/27/17 8:29 AM) Temperature Oral [96.4-99.1 DegF] 98.1 DegF 98.4 DegF (03/27/17 12:00 PM) (03/27/17 8:29 AM) Blood Pressure [90-140/60-90 mmHg] 136/93 mmHg 155/111 mmHg (03/27/17 12:00 PM) *HI* (03/27/17 8:29 AM) Respiratory Rate [14-20 BRMIN] 18 BRMIN 17 BRMIN (03/27/17 12:00 PM) (03/27/17 8:29 AM) Peripheral Pulse Rate [60-100 bpm] 70 bpm 94 bpm (03/27/17 12:00 PM) (03/27/17 8:29 AM) Weight 75 kg (03/27/17 8:29 AM) Body Mass Index 27.51 m2 (03/27/17 8:29 AM) Problem List Condition Effective Dates Status Health Status Informant Acute pyelonephritis(Confirmed) Active Appendicitis(Confirmed) Resolved delivery(Confirmed) Resolved Crohns disease(Confirmed) Resolved Hemorrhoids(Confirmed) Active Tonsillitis(Confirmed) Resolved Allergies, Adverse Reactions, Alerts Substance Reaction Severity Status codeine Codeine Active Codeine Codeine Medications Dilaudid 0.5 mg, Route: IV, ONCE, Dosing Weight 75, kg, Start date: 03/27/17 10:57:00 CDT , Stop date: 03/27/17 10:57:00 CDT Start Date: 03/27/17 Stop Date: 03/27/17 Status: CompletedFlexeril 10 mg oral tablet 10 mg, PO, TID, PRN Muscle Spasm, X 5 day, # 20 tab, 0 Refill(s) Start Date: 03/27/17 Stop Date: 04/01/17 Status: Orderedmorphine Sulfate 4 mg, Route: IVP, ONCE, Dosing Weight 75, kg, Start date: 03/27/17 9:01:00 CDT, Stop date: 03/27/17 9:01:00 CDT Start Date: 03/27/17 Stop Date: 03/27/17 Status: CompletedNS (Bolus) IV 1,000 mL, 1,000 ml/hr, Infuse Over: 1 hr, Route: IV, ONCE, Priority: STAT, Dosing Weight 75 kg, Start date: 03/27/17 9:01:00 CDT, Duration: 1 doses or times, Stop date: 03/27/17 9:01:00 CDT Start Date: 03/27/17 Stop Date: 03/27/17 Status: CompletedUltram 50 mg oral tablet 100 mg=2 tab, PO, Q6H, PRN pain, X 3 day, # 24 tab, 0 Refill(s) Start Date: 03/27/17 Stop Date: 03/30/17 Status: OrderedZofran 4 mg, Route: IVP, Drug form: INJ, ONCE, Dosing Weight 75, kg, Priority: STAT, Start date: 03/27/17 9:01:00 CDT, Stop date: 03/27/17 9:01:00 CDT Start Date: 03/27/17 Stop Date: 03/27/17 Status: CompletedZofran 4 mg, Route: IVP, Drug form: INJ, ONCE, Dosing Weight 75, kg, Priority: STAT, Start date: 03/27/17 10:57:00 CDT, Stop date: 03/27/17 10:57:00 CDT Start Date: 03/27/17 Stop Date: 03/27/17 Status: CompletedZofran ODT 4 mg oral tablet, disintegrating 4 mg=1 tab, PO, BID, PRN Nausea and Vomiting, Dissolve tab under tongue, X 3 day , # 6 tab, 0 Refill(s) Start Date: 03/27/17 Stop Date: 03/30/17 Status: Ordered Results ELECTROLYTES Most recent to oldest [Reference Range]: 1 Sodium Lvl [135-145 mEq/L] 141 mEq/L (03/27/17 9:14 AM) Potassium Lvl [3.5-5.1 mEq/L] 3.5 mEq/L (03/27/17 9:14 AM) Chloride Lvl [95-109 mEq/L] 108 mEq/L (03/27/17 9:14 AM) CO2 [24-32 mEq/L] 23 mEq/L *LOW* (03/27/17 9:14 AM) AGAP [10.0-20.0 mEq/L] 13.5 mEq/L (03/27/17 9:14 AM) CHEM PANEL Most recent to oldest [Reference Range]: 1 Creatinine Lvl [0.50-1.40 mg/dL] 0.57 mg/dL (03/27/17 9:14 AM) eGFR 121 mL/min/1.73m2 1 *NA* (03/27/17 9:14 AM) BUN [7-22 mg/dL] 13 mg/dL (03/27/17 9:14 AM) B/C Ratio [6-25] 23 (03/27/17 9:14 AM) Glucose Lvl [70-99 mg/dL] 78 mg/dL (03/27/17 9:14 AM) Total Protein [6.4-8.4 g/dL] 7.4 g/dL (03/27/17 9:14 AM) Albumin Lvl [3.5-5.0 g/dL] 4.0 g/dL (03/27/17 9:14 AM) Globulin [2.7-4.2 g/dL] 3.4 g/dL (03/27/17 9:14 AM) A/G Ratio [0.7-1.6] 1.2 (03/27/17 9:14 AM) Calcium Lvl [8.5-10.5 mg/dL] 8.3 mg/dL *LOW* (03/27/17 9:14 AM) ALT [0-65 unit/L] 22 unit/L (03/27/17 9:14 AM) AST [0-37 unit/L] 11 unit/L (03/27/17 9:14 AM) Alk Phos [39-136 unit/L] 45 unit/L (03/27/17 9:14 AM) Bili Total [0.2-1.3 mg/dL] 0.7 mg/dL (03/27/17 9:14 AM) Lipase Lvl [73-393 unit/L] 193 unit/L (03/27/17 9:14 AM) 1Result Comment: The eGFR is calculated using [...] Most recent to oldest [Reference Range]: 1 S Preg [Negative] Negative *NA* (03/27/17 9:14 AM) URINE CHEM Most recent to oldest [Reference Range]: 1 U Preg [Negative] Negative (03/27/17 9:14 AM) URINE AND STOOL Most recent to oldest [Reference Range]: 1 UA Turbidity [Clear] Slight *ABN* (03/27/17 9:14 AM) UA Color [Yellow] Yellow *NA* (03/27/17 9:14 AM) UA pH [5.0-8.0] 6.0 (03/27/17 9:14 AM) UA Spec Grav [<=1.030] 1.023 (03/27/17 9:14 AM) UA Glucose [Negative mg/dL] Negative mg/dL *NA* (03/27/17 9:14 AM) UA Blood [Negative] Negative (03/27/17 9:14 AM) UA Ketones [Negative mg/dL] Negative mg/dL *NA* (03/27/17 9:14 AM) UA Protein [Negative mg/dL] Negative mg/dL (03/27/17 9:14 AM) UA Urobilinogen [0.1-1.0 mg/dL] <=1.0 mg/dL *NA* (03/27/17 9:14 AM) UA Bili [Negative] Negative *NA* (03/27/17 9:14 AM) UA Leuk Est [Negative] Small *ABN* (03/27/17 9:14 AM) UA Nitrite [Negative] Negative (03/27/17 9:14 AM) UA WBC [0-5 /HPF] 3 /HPF (03/27/17 9:14 AM) UA RBC [0-2 /HPF] 2 /HPF (03/27/17 9:14 AM) UA Bacteria [None Seen /HPF] Occasional /HPF *NA* (03/27/17 9:14 AM) UA Sq Epi [Few /LPF] Many /LPF *ABN* (03/27/17 9:14 AM) UA Mucus [None Seen /LPF] Few /LPF *NA* (03/27/17 9:14 AM) HEMATOLOGY Most recent to oldest [Reference Range]: 1 WBC [3.7-10.4 K/CMM] 7.1 K/CMM (03/27/17 9:14 AM) RBC [4.20-5.40 M/CMM] 4.36 M/CMM (03/27/17 9:14 AM) Hgb [12.0-16.0 g/dL] 13.8 g/dL (03/27/17 9:14 AM) Hct [36.0-48.0 %] 40.3 % (03/27/17 9:14 AM) MCV [80.0-98.0 fL] 92.6 fL (03/27/17 9:14 AM) MCH [27.0-31.0 pg] 31.7 pg *HI* (03/27/17 9:14 AM) MCHC [32.0-36.0 g/dL] 34.3 g/dL (03/27/17 9:14 AM) RDW [11.5-14.5 %] 13.1 % (03/27/17 9:14 AM) Platelet [133-450 K/CMM] 251 K/CMM (03/27/17 9:14 AM) MPV [7.4-10.4 fL] 7.9 fL (03/27/17 9:14 AM) Segs [45.0-75.0 %] 72.2 % (03/27/17 9:14 AM) Lymphocytes [20.0-40.0 %] 21.3 % (03/27/17 9:14 AM) Monocytes [2.0-12.0 %] 4.7 % (03/27/17 9:14 AM) Eosinophils [0.0-4.0 %] 1.2 % (03/27/17 9:14 AM) Basophils [0.0-1.0 %] 0.6 % (03/27/17 9:14 AM) Segs-Bands # [1.5-8.1 K/CMM] 5.1 K/CMM (03/27/17 9:14 AM) Lymphocytes # [1.0-5.5 K/CMM] 1.5 K/CMM (03/27/17 9:14 AM) Monocytes # [0.0-0.8 K/CMM] 0.3 K/CMM (03/27/17 9:14 AM) Eosinophils # [0.0-0.5 K/CMM] 0.1 K/CMM (03/27/17 9:14 AM) Immunizations No data available for this section Procedures Procedure Date Related Diagnosis Body Site Operation1 03/27/16 Tonsillectomy 2007 Breast augmentation 2006 ACL - Repair of anterior cruciate ligament 1997 Appendectomy 1987 Abdominoplasty section2 1Examination under anesthesia, [...] Smoking Cessation Counseling No Assessment and Plan No data available for this section
--- OUTSIDE RECORDS SUMMARY | 2018-05-04 10:29 | XMS REPORT | Summary of Care ---
:1980 Author Organization [facility] [place] Address [address] [address]- Encounter HQ Mauricio_eneida(FIN) [id number] Date(s): 02/20/18 - 02/20/18 [facility] [place] [address] [address]- [phone] Discharge Disposition: Home or Self Care Attending Physician: Flaco Young MD Vital Signs No data available for this section Problem List Condition Effective Dates Status Health Status Informant Abdominal distention(Confirmed) Active Abdominal pain(Confirmed) Active Erosive gastritis(Confirmed) Active Acute pyelonephritis(Confirmed) Resolved Appendicitis(Confirmed) Resolved Asthmatic bronchitis(Confirmed) Active delivery(Confirmed) Resolved Chronic anxiety(Confirmed) Active Crohns disease(Confirmed) Resolved Diarrhea(Confirmed) Active Hemorrhoids(Confirmed) Resolved History of Active nephrolithiasis(Confirmed) Hypertensive disorder(Confirmed) Active MRSA(Confirmed)1, 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 Allergies, Adverse Reactions, Alerts Substance Reaction Severity Status codeine Codeine Active Codeine Codeine Medications No data available for this section Results No data available for this section Immunizations No data available for this section Procedures Procedure Date Related Diagnosis Body Site Status Operation1 03/27/16 Completed Tonsillectomy 2007 Completed Breast augmentation 2005 Completed ACL - [...]
--- OUTSIDE RECORDS SUMMARY | 2018-05-04 10:30 | XMS REPORT | Summary of Care ---
:1980 Author Organization [facility] [place] Address [address] [place] [address]- Encounter HQ Mauricio_eneida(FIN) [id number] Date(s): 03/05/18 - 03/05/18 [facility] [place] [address] [place] [address]- [phone] Discharge Disposition: Home or Self Care Attending Physician: Noman Ruth MD Vital Signs Most recent to oldest [Reference Range]: 1 Height 165.1 cm (03/05/18 1:39 PM) Temperature Oral [96.4-99.1 DegF] 98.6 DegF (03/05/18 1:39 PM) Blood Pressure [90-140/60-90 mmHg] 151/103 mmHg *HI* (03/05/18 1:39 PM) Peripheral Pulse Rate [60-100 bpm] 93 bpm (03/05/18 1:39 PM) Weight 78.409 kg (03/05/18 1:39 PM) Body Mass Index 28.77 m2 (03/05/18 1:39 PM) Problem List Condition Effective Dates Status Health Status Informant Abdominal distention(Confirmed) Active Abdominal pain(Confirmed) Active Erosive gastritis(Confirmed) Active Acute pyelonephritis(Confirmed) Resolved Appendicitis(Confirmed) Resolved Asthmatic bronchitis(Confirmed) Active Cholelithiasis(Confirmed) Active delivery(Confirmed) Resolved Chronic anxiety(Confirmed) Active Crohns disease(Confirmed) Resolved Diarrhea(Confirmed) Active Hemorrhoids(Confirmed) Resolved History of Active nephrolithiasis(Confirmed) Hypertensive disorder(Confirmed) Active MRSA(Confirmed)1, 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 Allergies, Adverse Reactions, Alerts Substance Reaction Severity Status codeine Codeine Active Codeine Codeine Medications No Known Medications Results No data available for this section [...] 365 Days Yes; Reg Smoking Cessation Counseling No1 entered on: 03/06/18 1Quit smoking 11/10/2017. Assessment and Plan No data available for this section
--- OUTSIDE RECORDS SUMMARY | 2018-05-04 10:30 | XMS REPORT | Summary of Care ---
:1980 Author Organization [facility] Address [address] [place] [address]- Encounter HQ Mauricio_eneida(FIN) [phone] Date(s): 04/07/18 - 04/09/18 [facility] [id number] [place] [phone] Discharge Disposition: Home or Self Care Attending Physician: Adrian Bobo DO Admitting Physician: Adrian Bobo DO Vital Signs Most recent to oldest 1 2 3 [Reference Range]: Height 165.1 cm 165.1 cm 165.1 cm (04/07/18 10:42 PM) (04/07/18 10:39 PM) (04/07/18 7:10 PM) Current Weight 81.4 kg (04/07/18 10:42 PM) Temperature Oral [96.4-99.1 98.8 DegF 98.7 DegF 98.3 DegF DegF] (04/09/18 11:25 AM) (04/09/18 8:26 AM) (04/09/18 3:50 AM) Blood Pressure [90-140/60-90 130/84 mmHg 134/87 mmHg 127/76 mmHg mmHg] (04/09/18 11:25 AM) (04/09/18 8:26 AM) (04/09/18 7:42 AM) Respiratory Rate [14-20 18 BRMIN 18 BRMIN 15 BRMIN BRMIN] (04/09/18 11:25 AM) (04/09/18 8:26 AM) (04/09/18 7:42 AM) Peripheral Pulse Rate [60-100 86 bpm 83 bpm 84 bpm bpm] (04/09/18 11:25 AM) (04/09/18 8:26 AM) (04/09/18 6:56 AM) Weight 81.534 kg 79.3 kg (04/07/18 10:39 PM) (04/07/18 7:10 PM) Body Mass Index 29.91 m2 29.09 m2 (04/07/18 10:39 PM) (04/07/18 7:10 PM) Problem List Condition Effective Dates Status Health Status Informant Abdominal distention(Confirmed) Active Abdominal pain(Confirmed) Active Erosive gastritis(Confirmed) Active Acute pyelonephritis(Confirmed) Resolved Appendicitis(Confirmed) Resolved Asthmatic bronchitis(Confirmed) Active Cholelithiasis(Confirmed) Active delivery(Confirmed) Resolved Chronic anxiety(Confirmed) Active Crohns disease(Confirmed) Resolved Diarrhea(Confirmed) Active Hemorrhoids(Confirmed) Resolved History of Active nephrolithiasis(Confirmed) Hypertensive disorder(Confirmed) Active MRSA(Confirmed)1, 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 Allergies, Adverse Reactions, Alerts Substance Reaction Severity Status codeine Codeine Active Codeine Codeine Medications BuSpar 7.5 mg, 1.5 tab, Route: PO, Drug form: TAB, Q12H, Start date: 04/08/18 9:00:00 CDT, Duration: 30 day, Stop date: 05/07/18 21:00:00 CDT Notes: (Same As: BuSpar) Start Date: 04/08/18 Stop Date: 04/09/18 Status: DiscontinuedbusPIRone 7.5 mg oral tablet busPIRone 7.5 mg oral tablet, See Instructions, Route: PO, Q12H, 04/08/18 9:00: 00 CDT, Duration: 30 day, Stop date: 05/07/18 21:00:00 CDT Start Date: 04/08/18 Stop Date: 04/08/18 Status: DeletedDilaudid 1 mg, Route: IVP, ONCE, Dosing Weight 79.3, kg, Priority: STAT, Start date: 21:53:00 CDT, Stop date: 04/07/18 21:53:00 CDT Start Date: 04/07/18 Stop Date: 04/07/18 Status: DiscontinuedDilaudid 2 mg, 2 mL, Route: IVP, Drug form: INJ, ONCE, Dosing Weight 81.534, kg, Priority : STAT, Start date: 04/08/18 0:29:00 CDT, Stop date: 04/08/18 0:29:00 CDT Notes: Same as: Dilaudid Start Date: 04/08/18 Stop Date: 04/08/18 Status: CompletedDilaudid 1 mg, 1 mL, Route: IVP, Drug form: INJ, Q3H, Dosing Weight 81.534, kg, PRN Pain Score 7-10, Start date: 04/08/18 3:32:00 CDT, Duration: 30 day, Stop date: 05/08 3:31:00 CDT Notes: Same as: Dilaudid Start Date: 04/08/18 Stop Date: 04/09/18 Status: DiscontinuedDuragesic-75 1 patch, Route: TOP, Drug Form: ERFILM, Dosing Weight 79.3, kg, Q72H, Start date : 04/07/18 22:00:00 CDT, Duration: 30 day, Stop date: 05/04/18 22:00:00 CDT Notes: (Same as: Duragesic)Check for product integrity. Apply to intact skin "Remove old patch before application of new patch" Start Date: 04/07/18 Stop Date: 04/09/18 Status: DiscontinuedfentaNYL 100 microgram, 2 mL, Route: IV, Drug form: INJ, ONCE, Dosing Weight 79.3, kg, Priority: NOW, Start date: 04/07/18 21:53:00 CDT, Stop date: 04/07/18 21:53:00 CDT Notes: (Same as: Sublimaze) Preservative free. Start Date: 04/07/18 Stop Date: 04/07/18 Status: Completedlabetalol 20 mg, 4 mL, Route: IVP, Drug form: INJ, Q4H, Dosing Weight 79.3, kg, PRN Hypertension, Start date: 04/07/18 22:00:00 CDT, Duration: 30 day, Stop date: 21:59:00 CDT Start Date: 04/07/18 Stop Date: 04/09/18 Status: Discontinuedlabetalol 20 mg, 4 mL, Route: IVP, Drug form: INJ, ONCE, Dosing Weight 79.3, kg, Priority : STAT, Start date: 04/07/18 21:20:00 CDT, Stop date: 04/07/18 21:20:00 CDT Start Date: 04/07/18 Stop Date: 04/07/18 Status: Completedmagnesium citrate 1.745 g/30 mL oral liquid 300 ml, Route: PO, Drug Form: LIQ, Dosing Weight 81.534, kg, ONCE, Start date: 04/09/18 7:29:00 CDT,Stop date: 04/09/18 7:29:00 CDT Notes: (Same as: Citrate of Magnesia)Concentration: 1.745 gm / 30 mL Start Date: 04/09/18 Stop Date: 04/09/18 Status: Completedmagnesium citrate 1.745 g/30 mL oral liquid 300 mL, Route: PO, Drug Form: LIQ, Dosing Weight 81.534, kg, Bedtime, Start date : 04/08/18 21:00:00 CDT, Duration: 30 day, Stop date: 05/07/18 21:00:00 CDT Notes: (Same as: Citrate of Magnesia)Concentration: 1.745 gm / 30 mL Start Date: 04/08/18 Stop Date: 04/09/18 Status: DiscontinuedMiraLax 17 gm, 1 pkt, Route: PO, Drug form: PWDR, BID, Dosing Weight 81.534, kg, Start date: 04/09/18 9:00:00 CDT, Duration: 30 day, Stop date: 05/08/18 17:00:00 CDT Notes: Dissolve in 8 oz of water or juice.(Same as: Miralax) Start Date: 04/09/18 Stop Date: 04/09/18 Status: Discontinuedmorphine Sulfate 4 mg, 1 mL, Route: IVP, Drug form: SOLN, ONCE, Dosing Weight 79.3, kg, Priority : STAT, Start date: 04/07/18 19:19:00 CDT, Stop date: 04/07/18 19:19:00 CDT Notes: (Same as:MORPhine Sulfate) Start Date: 04/07/18 Stop Date: 04/07/18 Status: CompletedNorco 10/325 oral tablet See Instructions, PRN Pain Score 6-10, 1 tab PO Q4-6H prn pain, # 24 tab, 0 Refill(s) Start Date: 04/09/18 Stop Date: 04/12/18 Status: Orderedondansetron 4 mg, 2 mL, Route: IVP, Drug form: INJ, ONCE, Dosing Weight 81.818, kg, Priority : STAT, Start date: 04/07/18 19:15:00 CDT, Stop date: 04/07/18 19:15:00 CDT Notes: (Same as: Zofran) MEDICATION WASTE Product Size: 4 mgProduct Wasted: ___ mg Start Date: 04/07/18 Stop Date: 04/07/18 Status: CompletedPhenergan + Sodium Chloride 0.9% IV 50 mL 25 mg, 1 mL, Route: IVPB, Q6H, Dosing Weight 79.3, kg, PRN as needed for nausea/ vomiting, Start date: 04/07/18 21:45:00 CDT, Duration: 30 day, Stop date: 21:44:00 CDT Notes: Do not give IV push. (Same as: Phenergan) Start Date: 04/07/18 Stop Date: 04/09/18 Status: Discontinuedpolyethylene glycol 3350 with electrolytes 4,000 mL, Route: PO, Drug Form: PDR/REC, Dosing Weight 79.3, kg, ONCE, Start date: 04/07/18 21:45:00CDT, Stop date: 04/07/18 21:45:00 CDT Notes: (polyethylene glycol electrolyte solution 4 Liter bottle) (Same as: Tavia Meier) Start Date: 04/07/18 Stop Date: 04/08/18 Status: Completedpotassium chloride 20 mEq oral tablet, extended release 40 mEq, 2 tab, Route: PO, Drug form: ERTAB, ONCE, Dosing Weight 81.534, kg, Start date: 04/08/18 8:03:00 CDT, Stop date: 04/08/18 8:03:00 CDT Notes: (Same as: K-Dur 20)"Do Not Crush"For patients unable to swallow tablet, dissolve in one half glass of water. Allow about 2 minutes for the tablets to disintegrate. Stir before giving to prepare slurry and administer.Please exclude Patients with feeding tube less than 14 Divehi (Dobhoff, J-tube etc) and pediatric and patients. With food and full glass of water Start Date: 04/08/18 Stop Date: 04/08/18 Status: CompletedSaline Flush 0.9% 10 ml, Route: IVP, Drug Form: INJ, Dosing Weight 79.3, kg, PRN, PRN Line Flush, Start date: 04/07/1821:45:00 CDT, Duration: 30 day, Stop date: 05/07/18 21:44: 00 CDT Notes: (Same as: BD Posiflush) Start Date: 04/07/18 Stop Date: 04/09/18 Status: DiscontinuedSodium Chloride 0.9% (Bolus) IV 1,000 mL, 1000 ml/hr, Infuse Over: 1 hr, Route: IV, 1,000, Drug form: INJ, ONCE , Priority: STAT, Dosing Weight 81.818 kg, Start date: 04/07/18 19:15:00 CDT, Stop date: 04/07/18 19:15:00 CDT Start Date: 04/07/18 Stop Date: 04/07/18 Status: CompletedSodium Chloride 0.9% (titrate) 250 mL 250 mL, Rate: To prime line and flush remaining blood products., Dosing Weight 79.3, kg, Route: IV, Total Volume: 250, Priority: Routine, Start Date: 04/07/18 21:45:00 CDT, Duration: 30 day, Stop date:05/07/18 21:44:00 CDT, Replace Every: 24 hr Start Date: 04/07/18 Stop Date: 04/09/18 Status: DiscontinuedSodium Chloride 0.9% IV 1,000 mL 1,000 mL, Rate: 150 ml/hr, Infuse over: 6.7 hr, Route: IV, Dosing Weight 79.3 kg , Total Volume: 1,000, Start date: 04/07/18 21:45:00 CDT, Duration: 30 day, Stop date: 05/07/18 21:44:00 CDT, 1.93, m2 Start Date: 04/07/18 Stop Date: 04/09/18 Status: DiscontinuedZofran 4 mg oral tablet 4 mg=1 tab, PO, Q6H, PRN Nausea/Vomiting, # 8 tab, 0 Refill(s), Pharmacy: [facility] [id number] Start Date: 04/09/18 Stop Date: 04/11/18 Status: Ordered Results BLOOD BANK RESULTS Most recent to oldest [Reference Range]: 1 2 3 ABO/Rh O POS *Unknown* (04/07/18 11:25 PM) Antibody Scrn Negative (04/07/18 11:25 PM) ELECTROLYTES Most recent to oldest [Reference Range]: 1 2 3 Sodium Lvl [135-145 mEq/L] 142 mEq/L 143 mEq/L (04/08/18 4:16 AM) (04/07/18 7:37 PM) Potassium Lvl [3.5-5.1 mEq/L] 3.2 mEq/L 3.9 mEq/L *LOW* (04/07/18 7:37 PM) (04/08/18 4:16 AM) Chloride Lvl [95-109 mEq/L] 108 mEq/L 108 mEq/L (04/08/18 4:16 AM) (04/07/18 7:37 PM) CO2 [24-32 mEq/L] 27 mEq/L 29 mEq/L (04/08/18 4:16 AM) (04/07/18 7:37 PM) AGAP [10.0-20.0 mEq/L] 10.2 mEq/L 9.9 mEq/L (04/08/18 4:16 AM) *LOW* (04/07/18 7:37 PM) CHEM PANEL Most recent to [Reference Range]: 1 2 3 Creatinine Lvl [0.50-1.40 mg/dL] 0.55 mg/dL 0.66 mg/dL (04/08/18 4:16 AM) (04/07/18 7:37 PM) eGFR 122 mL/min/1.73m2 1 115 mL/min/1.73m2 2 *NA* *NA* (04/08/18 4:16 AM) (04/07/18 7:37 PM) BUN [7-22 mg/dL] 8 mg/dL 12 mg/dL (04/08/18 4:16 AM) (04/07/18 7:37 PM) B/C Ratio [6-25] 15 18 (04/08/18 4:16 AM) (04/07/18 7:37 PM) Glucose Lvl [70-99 mg/dL] 85 mg/dL 82 mg/dL (04/08/18 4:16 AM) (04/07/18 7:37 PM) Total Protein [6.4-8.4 g/dL] 6.2 g/dL 7.1 g/dL *LOW* (04/07/18 7:37 PM) (04/08/18 4:16 AM) Albumin Lvl [3.5-5.0 g/dL] 3.2 g/dL 3.5 g/dL *LOW* (04/07/18 7:37 PM) (04/08/18 4:16 AM) Globulin [2.7-4.2 g/dL] 3.0 g/dL 3.6 g/dL (04/08/18 4:16 AM) (04/07/18 7:37 PM) A/G Ratio [0.7-1.6] 1.1 1.0 (04/08/18 4:16 AM) (04/07/18 7:37 PM) Calcium Lvl [8.5-10.5 mg/dL] 8.1 mg/dL 9.0 mg/dL *LOW* (04/07/18 7:37 PM) (04/08/18 4:16 AM) ALT [0-65 unit/L] 57 unit/L 64 unit/L (04/08/18 4:16 AM) (04/07/18 7:37 PM) AST [0-37 unit/L] 43 unit/L 50 unit/L *HI* *HI* (04/08/18 4:16 AM) (04/07/18 7:37 PM) Alk Phos [39-136 unit/L] 71 unit/L 89 unit/L (04/08/18 4:16 AM) (04/07/18 7:37 PM) Bili Total [0.2-1.3 mg/dL] 0.2 mg/dL 0.1 mg/dL (04/08/18 4:16 AM) *LOW* (04/07/18 7:37 PM) Lipase Lvl [73-393 unit/L] 1224 unit/L *HI* (04/07/18 7:37 PM) 1Result Comment: The eGFR is calculated [...] eGFR should be multiplied by the estimated BMI.CARDIAC ENZYMES Most recent to oldest [Reference Range]: 1 2 3 Total CK [12-191 unit/L] 43 unit/L (04/07/18 7:37 PM) CK MB [0.5-3.6 ng/mL] 0.7 ng/mL (04/07/18 7:37 PM) CK MB Index [0.0-2.5] 1.6 (04/07/18 7:37 PM) Troponin-I [0.00-0.40 ng/mL] <0.02 ng/mL (04/07/18 7:37 PM) ENDOCRINOLOGY Most recent to oldest [Reference Range]: 1 2 3 S Preg [Negative] Negative *NA* (04/07/18 7:37 PM) URINE AND STOOL Most recent to oldest [Reference Range]: 1 2 3 UA Turbidity [Clear] Marked *ABN* (04/07/18 8:02 PM) UA Color [Yellow] Yellow *NA* (04/07/18 8:02 PM) UA pH [5.0-8.0] 6.0 (04/07/18 8:02 PM) UA Spec Grav [<=1.030] 1.016 (04/07/18 8:02 PM) UA Glucose [Negative mg/dL] Negative mg/dL *NA* (04/07/18 8:02 PM) UA Blood [Negative] Large *ABN* (04/07/18 8:02 PM) UA Ketones [Negative mg/dL] Negative mg/dL *NA* (04/07/18 8:02 PM) UA Protein [Negative mg/dL] 30 mg/dL *ABN* (04/07/18 8:02 PM) UA Urobilinogen [0.1-1.0 mg/dL] <=1.0 mg/dL *NA* (04/07/18 8:02 PM) UA Bili [Negative] Negative *NA* (04/07/18 8:02 PM) UA Leuk Est [Negative] Small *ABN* (04/07/18 8:02 PM) UA Nitrite [Negative] Negative (04/07/18 8:02 PM) UA RBC [0-2 /HPF] >182 /HPF *HI* (04/07/18 8:02 PM) UA Sq Epi [Few /LPF] Moderate /LPF *ABN* (04/07/18 8:02 PM) HEMATOLOGY Most recent to oldest 1 2 3 [Reference Range]: WBC [3.7-10.4 K/CMM] 6.4 K/CMM 7.4 K/CMM 7.7 K/CMM (04/09/18 3:59 AM) (04/08/18 4:16 AM) (04/07/18 7:37 PM) RBC [4.20-5.40 M/CMM] 3.74 M/CMM 3.73 M/CMM 4.35 M/CMM *LOW* *LOW* (04/07/18 7:37 PM) (04/09/18 3:59 AM) (04/08/18 4:16 AM) Hgb [12.0-16.0 g/dL] 11.2 g/dL 11.3 g/dL 11.4 g/dL *LOW* *LOW* *LOW* (04/09/18 3:59 AM) (04/08/18 4:05 PM) (04/08/18 9:52 AM) Hct [36.0-48.0 %] 32.3 % 32.0 % 37.3 % *LOW* *LOW* (04/07/18 7:37 PM) (04/09/18 3:59 AM) (04/08/18 4:16 AM) MCV [80.0-98.0 fL] 86.3 fL 85.7 fL 85.7 fL (04/09/18 3:59 AM) (04/08/18 4:16 AM) (04/07/18 7:37 PM) MCH [27.0-31.0 pg] 30.1 pg 30.3 pg 30.0 pg (04/09/18 3:59 AM) (04/08/18 4:16 AM) (04/07/18 7:37 PM) MCHC [32.0-36.0 g/dL] 34.8 g/dL 35.3 g/dL 35.0 g/dL (04/09/18 3:59 AM) (04/08/18 4:16 AM) (04/07/18 7:37 PM) RDW [11.5-14.5 %] 12.6 % 12.7 % 12.5 % (04/09/18 3:59 AM) (04/08/18 4:16 AM) (04/07/18 7:37 PM) MPV [7.4-10.4 fL] 8.0 fL 7.9 fL 7.7 fL (04/09/18 3:59 AM) (04/08/18 4:16 AM) (04/07/18 7:37 PM) Platelet [133-450 K/CMM] 263 K/CMM 250 K/CMM 306 K/CMM (04/09/18 3:59 AM) (04/08/18 4:16 AM) (04/07/18 7:37 PM) Segs [45.0-75.0 %] 47.6 % 45.4 % 48.5 % (04/09/18 3:59 AM) (04/08/18 4:16 AM) (04/07/18 7:37 PM) Lymphocytes [20.0-40.0 %] 37.1 % 37.8 % 36.8 % (04/09/18 3:59 AM) (04/08/18 4:16 AM) (04/07/18 7:37 PM) Monocytes [2.0-12.0 %] 7.8 % 8.6 % 6.6 % (04/09/18 3:59 AM) (04/08/18 4:16 AM) (04/07/18 7:37 PM) Eosinophils [0.0-4.0 %] 6.8 % 7.3 % 7.2 % *HI* *HI* *HI* (04/09/18 3:59 AM) (04/08/18 4:16 AM) (04/07/18 7:37 PM) Basophils [0.0-1.0 %] 0.7 % 0.9 % 0.9 % (04/09/18 3:59 AM) (04/08/18 4:16 AM) (04/07/18 7:37 PM) Segs-Bands # [1.5-8.1 K/CMM] 3.1 K/CMM 3.4 K/CMM 3.7 K/CMM (04/09/18 3:59 AM) (04/08/18 4:16 AM) (04/07/18 7:37 PM) Lymphocytes # [1.0-5.5 2.4 K/CMM 2.8 K/CMM 2.8 K/CMM K/CMM] (04/09/18 3:59 AM) (04/08/18 4:16 AM) (04/07/18 7:37 PM) Monocytes # [0.0-0.8 K/CMM] 0.5 K/CMM 0.6 K/CMM 0.5 K/CMM (04/09/18 3:59 AM) (04/08/18 4:16 AM) (04/07/18 7:37 PM) Eosinophils # [0.0-0.5 0.4 K/CMM 0.5 K/CMM 0.6 K/CMM K/CMM] (04/09/18 3:59 AM) (04/08/18 4:16 AM) *HI* (04/07/18 7:37 PM) Basophils # [0.0-0.2 K/CMM] 0.1 K/CMM 0.1 K/CMM (04/08/18 4:16 AM) (04/07/18 7:37 PM) Immunizations No data available for this [...] to smoke for 2 months.; entered on: 04/07/18 Assessment and Plan Extracted from: Title: Colorectal Surgery Author: Meera Subramanian MD Date: 04/09/18 Impression and Plan 37F with history of fissurectomy and hemorrhoid treatment along with Botox about 2 years ago who is having recurrent symptoms likely related to bowel habit changes in the last month. Her bleeding is no t clinically significant. I am going to order her compounded medication for the fissure that was seen on colonoscopy. She can leave and follow up with me in the office in a week. We discusssed option s of repeat Botox if the wound does not heal, vs surgery. She would like to try medication and to get her bowels more soft. I answered all of her questions and I will see her soon. Thank you for the consult. Extracted from: Title: Addendum to H&P Author: Adrian Bobo DO Date: 04/08/18 Patient s/e. c/o abdominal pain from front to back. Had ERCP a few weeks ago. She had followed up with GI after stent placement and planned for removal at some point. Patient also c/o blood in stool and diarrhea. Patient was given a hat to send off stool sample when collected. Extracted from: Title: Clinical Document Author: Jarred Encinas MD Date: 04/08/18 full H&P dictated, #[id number] date/time: 04/07/2018 21:11
--- OUTSIDE RECORDS SUMMARY | 2018-05-04 10:30 | XMS REPORT | Summary of Care ---
:1980 Author Organization [facility] Address [address] [place], [place] [address]- Encounter HQ Gerardontr_eneida(FIN) [id number] Date(s): 03/15/18 - 03/18/18 [facility] [address] [place] [address]- Discharge Disposition: Home or Self Care Attending Physician: Rafa Rodriguez MD Admitting Physician: Rafa Rodriguez MD Vital Signs Most recent to oldest [Reference 1 2 3 Range]: Height 165.1 cm (03/15/18 5:09 PM) Temperature Oral [96.4-99.1 98.3 DegF 98.3 DegF 98.6 DegF DegF] (03/18/18 7:39 AM) (03/17/18 10:41 PM) (03/17/18 8:10 PM) Blood Pressure [90-140/60-90 116/71 mmHg 149/105 mmHg 153/103 mmHg mmHg] (03/18/18 7:39 AM) *HI* *HI* (03/17/18 10:42 PM) (03/17/18 10:41 PM) Respiratory Rate [14-20 BRMIN] 16 BRMIN 16 BRMIN 22 BRMIN (03/18/18 7:39 AM) (03/17/18 10:41 PM) *HI* (03/17/18 8:10 PM) Peripheral Pulse Rate [60-100 78 bpm 54 bpm 82 bpm bpm] (03/18/18 7:39 AM) *LOW* (03/17/18 10:41 PM) (03/17/18 10:42 PM) Weight 81.818 kg (03/15/18 5:09 PM) Body Mass Index 30.02 m2 (03/15/18 5:09 PM) Problem List Condition Effective Dates Status Health Status Informant Abdominal distention(Confirmed) Active Abdominal pain(Confirmed) Active Erosive gastritis(Confirmed) Active Acute pyelonephritis(Confirmed) Resolved Appendicitis(Confirmed) Resolved Asthmatic bronchitis(Confirmed) Active Cholelithiasis(Confirmed) Active delivery(Confirmed) Resolved Chronic anxiety(Confirmed) Active Crohns disease(Confirmed) Resolved Diarrhea(Confirmed) Active Hemorrhoids(Confirmed) Resolved History of Active nephrolithiasis(Confirmed) Hypertensive disorder(Confirmed) Active MRSA(Confirmed)1, 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 Allergies, Adverse Reactions, Alerts Substance Reaction Severity Status codeine Codeine Active Codeine Codeine Medications acetaminophen-hydrocodone 334 mg-5 mg/10 mL oral elixir 15 ml, Route: PO, Dosing Weight 81.818, kg, Q4H, PRN Pain Score 4-6, Start date : 03/17/18 9:16:00 CDT, Duration: 30 day, Stop date: 04/16/18 9:15:00 CDT Start Date: 03/17/18 Stop Date: 03/17/18 Status: Discontinuedamoxicillin 500 mg, 1 cap, Route: PO, Drug form: CAP, ABXQ8H, Dosing Weight 81.818, kg, Start date: 03/18/18 9:00:00 CDT, Duration: 5 day, Stop date: 03/23/18 1:00:00 CDT Notes: (Same as: Amoxil) Start Date: 03/18/18 Stop Date: 03/18/18 Status: Discontinuedamoxicillin 500 mg oral capsule 500 mg=1 cap, PO, ABXQ8H, # 15 cap, 0 Refill(s), [facility] [id number] Start Date: 03/18/18 Stop Date: 03/19/18 Status: Completedciprofloxacin 400 mg, Route: IVPB, [id number], Dosing Weight 81.818, kg, Start date: 03/18/18 9: 00:00 CDT, Duration: 3 day, Stop date: 03/20/18 21:00:00 CDT, ABX Indication: Urinary Tract Infection Start Date: 03/18/18 Stop Date: 03/18/18 Status: Canceledciprofloxacin 400 mg, 200 mL, Route: IVPB, Drug form: INJ, [id number], Dosing Weight 81.818, kg, Start date: 03/15/1819:00:00 CDT, Duration: 3 day, Stop date: 03/18/18 7:00:00 CDT, ABX Indication: Urinary Tract Infection Notes: Do not refrigerate Start Date: 03/15/18 Stop Date: 03/18/18 Status: [id number] 1/2NS + KCL 20mEq/L 1000ml (Premix) 1,000 mL 1,000 mL, Rate: 75 ml/hr, Infuse over: 13.3 hr, Route: IV, Dosing Weight 81.818 kg, Total Volume: 1,000, Start date: 03/16/18 10:57:00 CDT, Duration: 30 day, Stop date: 04/15/18 10:56:00 CDT, 1.96, m2 Notes: PREMIX IV - Do Not AlterWASTE: F/P - Sink; E - Municipal Trash Bin Start Date: 03/16/18 Stop Date: 03/18/18 Status: WkpsubjxdxgkI9P 1/2NS + KCL 20mEq/L 1000ml (Premix) 1000 mL 1,000 mL, Rate: 100 ml/hr, Infuse over: 10 hr, Route: IV, Dosing Weight 81.818 kg, Total Volume: 1,000, Start date: 03/15/18 17:59:00 CDT, Duration: 30 day, Stop date: 04/14/18 17:58:00 CDT, 1.96, m2 Start Date: 03/15/18 Stop Date: 03/15/18 Status: DeletedDilaudid 1 mg, 1 mL, Route: IV, Drug form: SOLN, Q4H, Dosing Weight 81.818, kg, PRN Pain Score 7-10, Start date: 03/16/18 10:56:00 CDT, Stop date: 04/15/18 10:55:00 CDT Notes: (Same as: Dilaudid) Start Date: 03/16/18 Stop Date: 03/17/18 Status: DiscontinuedfentaNYL 50 microgram, 1 mL, Route: IV, Drug form: INJ, ONCE, Dosing Weight 81.818, kg, Start date: 03/17/18 14:22:00 CDT, Stop date: 03/17/18 14:22:00 CDT Notes: (Same as: Sublimaze) Preservative free. Start Date: 03/17/18 Stop Date: 03/17/18 Status: OrderedfentaNYL 25 microgram, Route: IV, ONCE, Dosing Weight 81.818, kg, Start date: 03/17/18 16 :53:00 CDT, Stop date: 03/17/18 16:53:00 CDT Start Date: 03/17/18 Stop Date: 03/17/18 Status: CompletedLR IV 1,000 mL 1,000 mL, Rate: 250 ml/hr, Infuse over: 4 hr, Route: IV, Dosing Weight 81.818 kg , Total Volume: 1,000, Start date: 03/17/18 18:47:00 CDT, Duration: 12 hr, Stop date: 03/18/18 6:46:00 CDT, 1.96, m2 Start Date: 03/17/18 Stop Date: 03/18/18 Status: CompletedLR IV 1,000 mL 1,000 mL, Rate: 250 ml/hr, Infuse over: 4 hr, Route: IV, Dosing Weight 81.818 kg , Total Volume: 1,000, Start date: 03/17/18 16:08:00 CDT, Duration: 6 hr, Stop date: 03/17/18 22:07:00 CDT, 1.96, m2 Start Date: 03/17/18 Stop Date: 03/17/18 Status: DiscontinuedLR IV 1,000 mL 1,000 mL, Rate: 1000 ml/hr, Infuse over: 1 hr, Route: IV, Dosing Weight 81.818 kg, Total Volume: 1,000, Start date: 03/17/18 16:08:00 CDT, Duration: 1 doses or times, Stop date: 03/17/18 17:07:00 CDT, 1.96, m2 Start Date: 03/17/18 Stop Date: 03/17/18 Status: Completedmorphine Sulfate 4 mg, Route: IVP, ONCE, Dosing Weight 84.091, kg, Priority: STAT, Start date: 12:01:00 CDT,Stop date: 03/15/18 12:01:00 CDT Start Date: 03/15/18 Stop Date: 03/15/18 Status: Completedmorphine Sulfate 2 mg, 0.5 mL, Route: IVP, Drug form: SOLN, Q4H, Dosing Weight 81.818, kg, PRN Pain Score 7-10, Startdate: 03/15/18 18:00:00 CDT, Duration: 30 day, Stop date: 04/14/18 17:59:00 CDT Notes: (Same as:MORPhine Sulfate) Start Date: 03/15/18 Stop Date: 03/15/18 Status: Discontinuedmorphine Sulfate 10 mg, 5 mL, Route: PO, Drug form: SOLN, Q4H, Dosing Weight 81.818, kg, PRN Pain Score 4-6, Start date: 03/18/18 10:35:00 CDT, Duration: 30 day, Stop date: 04/17/18 10:34:00 CDT Notes: (Same as:MORPhine Sulfate) Start Date: 03/18/18 Stop Date: 03/18/18 Status: Discontinuedmorphine Sulfate 4 mg, 1 mL, Route: IV, Drug form: SOLN, Q4H, Dosing Weight 81.818, kg, PRN Pain Score 7-10, Start date: 03/15/18 22:45:00 CDT, Stop date: 04/14/18 22:44:00 CDT Notes: (Same as:MORPhine Sulfate) Start Date: 03/15/18 Stop Date: 03/18/18 Status: Discontinuedmorphine Sulfate 4 mg, Route: IVP, ONCE, Dosing Weight 84.091, kg, Priority: STAT, Start date: 14:47:00 CDT,Stop date: 03/15/18 14:47:00 CDT Start Date: 03/15/18 Stop Date: 03/15/18 Status: Completedmorphine Sulfate 10 mg, 5 mL, Route: PO, Drug form: SOLN, Q4H, Dosing Weight 81.818, kg, PRN Pain Score 4-6, Start date: 03/17/18 9:28:00 CDT, Duration: 30 day, Stop date: 04/16/18 9:27:00 CDT Notes: (Same as:MORPhine Sulfate) Start Date: 03/17/18 Stop Date: 03/18/18 Status: Discontinuedmorphine Sulfate 4 mg, Route: IVP, ONCE, Dosing Weight 84.091, kg, Priority: STAT, Start date: 16:26:00 CDT,Stop date: 03/15/18 16:26:00 CDT Start Date: 03/15/18 Stop Date: 03/15/18 Status: Completedmorphine Sulfate 15 mg, 1 tab, Route: PO, Drug form: TAB, Q4H, Dosing Weight 81.818, kg, PRN Pain Score 4-6, Start date: 03/18/18 13:53:00 CDT, Duration: 30 day, Stop date: 04/17/18 13:52:00 CDT Notes: (Same as:MORPhine Sulfate) Start Date: 03/18/18 Stop Date: 03/18/18 Status: DiscontinuedNS (Bolus) IV 1,000 mL, 1,000 ml/hr, Infuse Over: 1 hr, Route: IV, 1,000, Drug form: INJ, ONCE , Priority: STAT, Dosing Weight 84.091 kg, Start date: 03/15/18 14:15:00 CDT, Stop date: 03/15/18 14:15:00 CDT Start Date: 03/15/18 Stop Date: 03/15/18 Status: Completedondansetron 4 mg, Route: IVP, ONCE, Dosing Weight 84.091, kg, Priority: STAT, Start date: 12:01:00 CDT,Stop date: 03/15/18 12:01:00 CDT Start Date: 03/15/18 Stop Date: 03/15/18 Status: CompletedoxyCODONE 5 mg oral tablet 10 mg, 2 tab, Route: PO, Drug form: TAB, Q4H, Dosing Weight 81.818, kg, PRN Pain Score 6-10, Start date: 03/17/18 21:17:00 CDT, Duration: 30 day, Stop date : 04/16/18 21:16:00 CDT Notes: (Same as: Roxicodone) Start Date: 03/17/18 Stop Date: 03/18/18 Status: DiscontinuedPepcid 20 mg, 1 tab, Route: PO, Drug form: TAB, Q12H, Dosing Weight 81.818, kg, Start date: 03/15/18 21:00:00 CDT, Duration: 30 day, Stop date: 04/14/18 9:00:00 CDT Notes: (Same as: Pepcid) Start Date: 03/15/18 Stop Date: 03/18/18 Status: DiscontinuedSaline Flush 0.9% 10 mL, Route: IVP, Drug Form: INJ, Dosing Weight 84.091, kg, PRN, PRN Line Flush , Start date: 03/15/18 12:01:00 CDT, Duration: 30 day, Stop date: 04/14/18 12:00 :00 CDT Notes: Same as: BD Posiflush Sterile Start Date: 03/15/18 Stop Date: 03/16/18 Status: DiscontinuedSodium Chloride 0.9% (Bolus) IV 1,000 mL, Infuse Over: 1 hr, Route: IV, ONCE, Priority: STAT, Dosing Weight 84.091 kg, Start date: 03/15/18 12:01:00 CDT, Stop date: 03/15/18 12:01:00 CDT Start Date: 03/15/18 Stop Date: 03/15/18 Status: CompletedSodium Chloride 0.9% IV 1,000 mL 1,000 mL, Rate: 25 ml/hr, Infuse over: 40 hr, Route: IV, Dosing Weight 81.818 kg , Total Volume: 1,000, Start date: 03/17/18 14:26:00 CDT, Duration: 1 day, Stop date: 03/18/18 14:25:00 CDT, 1.96, m2 Start Date: 03/17/18 Stop Date: 03/17/18 Status: DiscontinuedSodium Chloride 0.9% IV 1,000 mL + M.V.I.-12 10 mL Daily + folic acid IV 1 mg Daily + thiamine IV 1 1,000 mL, Rate: 75 ml/hr, Infuse over: 13.5 hr, Route: IV, Dosing Weight 81.818 kg, Total Volume: 1,011.2, Start date: 03/15/18 18:07:00 CDT, Duration: 3 day, Stop date: 03/18/18 18:06:00 CDT, 1.96, m2 Start Date: 03/15/18 Stop Date: 03/18/18 Status: Discontinuedthiamine 100 mg, 1 tab, Route: PO, Drug form: TAB, Daily, Dosing Weight 81.818, kg, Start date: 03/19/18 9:00:00 CDT, Duration: 30 day, Stop date: 04/17/18 9:00:00 CDT Notes: (Same As: Vitamin B1) Start Date: 03/19/18 Stop Date: 03/18/18 Status: Canceledthiamine 100 mg oral tablet 100 mg, PO, Daily, # 30 tab, 0 Refill(s), Pharmacy: [facility] [id number] Start Date: 03/18/18 Stop Date: 03/19/18 Status: CompletedZofran 4 mg, 2 mL, Route: IVP, Drug form: INJ, Q8H, Dosing Weight 81.818, kg, PRN Nausea, Start date: 03/15/18 18:00:00 CDT, Duration: 30 day, Stop date: 17:59:00 CDT Notes: (Same as: Zofran) MEDICATION WASTE Product Size: 4 mgProduct Wasted: ___ mg Start Date: 03/15/18 Stop Date: 03/18/18 Status: DiscontinuedZofran 4 mg, Route: IVP, Drug form: INJ, ONCE, Dosing Weight 84.091, kg, Priority: STAT , Start date: 03/15/18 16:26:00 CDT, Stop date: 03/15/18 16:26:00 CDT Start Date: 03/15/18 Stop Date: 03/15/18 Status: Completed Results ELECTROLYTES Most recent to oldest 1 2 3 [Reference Range]: Sodium Lvl [135-145 mEq/L] 142 mEq/L 142 mEq/L 142 mEq/L (03/18/18 7:59 AM) (03/17/18 6:12 AM) (03/16/18 4:11 AM) Potassium Lvl [3.5-5.1 mEq/L] 3.8 mEq/L 3.8 mEq/L 3.6 mEq/L (03/18/18 7:59 AM) (03/17/18 6:12 AM) (03/16/18 4:11 AM) Chloride Lvl [95-109 mEq/L] 108 mEq/L 108 mEq/L 110 mEq/L (03/18/18 7:59 AM) (03/17/18 6:12 AM) *HI* (03/16/18 4:11 AM) CO2 [24-32 mEq/L] 31 mEq/L 27 mEq/L 29 mEq/L (03/18/18 7:59 AM) (03/17/18 6:12 AM) (03/16/18 4:11 AM) AGAP [10.0-20.0 mEq/L] 6.8 mEq/L 10.8 mEq/L 6.6 mEq/L *LOW* (03/17/18 6:12 AM) *LOW* (03/18/18 7:59 AM) (03/16/18 4:11 AM) CHEM PANEL Most recent to oldest 1 2 3 [Reference Range]: Creatinine Lvl [0.50-1.40 0.52 mg/dL 0.48 mg/dL 0.53 mg/dL mg/dL] (03/18/18 7:59 AM) *LOW* (03/16/18 4:11 AM) (03/17/18 6:12 AM) eGFR 124 mL/min/1.73m2 1 128 mL/min/1.73m2 2 123 mL/min/1.73m2 3 *NA* *NA* *NA* (03/18/18 7:59 AM) (03/17/18 6:12 AM) (03/16/18 4:11 AM) BUN [7-22 mg/dL] 7 mg/dL 7 mg/dL 7 mg/dL (03/18/18 7:59 AM) (03/17/18 6:12 AM) (03/16/18 4:11 AM) B/C Ratio [6-25] 13 15 13 (03/18/18 7:59 AM) (03/17/18 6:12 AM) (03/16/18 4:11 AM) Glucose Lvl [70-99 mg/dL] 96 mg/dL 79 mg/dL 80 mg/dL (03/18/18 7:59 AM) (03/17/18 6:12 AM) (03/16/18 4:11 AM) Total Protein [6.4-8.4 6.1 g/dL 6.2 g/dL 6.4 g/dL g/dL] *LOW* *LOW* (03/17/18 6:12 AM) (03/18/18 7:59 AM) (03/17/18 6:12 AM) Albumin Lvl [3.5-5.0 g/dL] 3.0 g/dL 3.1 g/dL 3.2 g/dL *LOW* *LOW* *LOW* (03/18/18 7:59 AM) (03/17/18 6:12 AM) (03/17/18 6:12 AM) Globulin [2.7-4.2 g/dL] 3.1 g/dL 3.1 g/dL 3.2 g/dL (03/18/18 7:59 AM) (03/17/18 6:12 AM) (03/17/18 6:12 AM) A/G Ratio [0.7-1.6] 1.0 1.0 1.0 (03/18/18 7:59 AM) (03/17/18 6:12 AM) (03/17/18 6:12 AM) Calcium Lvl [8.5-10.5 8.2 mg/dL 8.4 mg/dL 7.9 mg/dL mg/dL] *LOW* *LOW* *LOW* (03/18/18 7:59 AM) (03/17/18 6:12 AM) (03/16/18 4:11 AM) Phosphorus [2.5-4.5 mg/dL] 3.4 mg/dL (03/15/18 1:41 PM) Magnesium Lvl [1.8-2.4 1.7 mg/dL mg/dL] *LOW* (03/15/18 1:41 PM) ALT [0-65 unit/L] 425 unit/L 623 unit/L 615 unit/L *HI* *HI* *HI* (03/18/18 7:59 AM) (03/17/18 6:12 AM) (03/17/18 6:12 AM) AST [0-37 unit/L] 97 unit/L 284 unit/L 273 unit/L *HI* *HI* *HI* (03/18/18 7:59 AM) (03/17/18 6:12 AM) (03/17/18 6:12 AM) Alk Phos [39-136 unit/L] 190 unit/L 214 unit/L 215 unit/L *HI* *HI* *HI* (03/18/18 7:59 AM) (03/17/18 6:12 AM) (03/17/18 6:12 AM) Bili Total [0.2-1.3 mg/dL] 0.3 mg/dL 0.4 mg/dL 0.6 mg/dL (03/18/18 7:59 AM) (03/17/18 6:12 AM) (03/17/18 6:12 AM) Bili Direct [0.0-0.3 mg/dL] 0.1 mg/dL 0.2 mg/dL (03/18/18 7:59 AM) (03/17/18 6:12 AM) Bili Indirect [0.0-1.0 0.2 mg/dL mg/dL] (03/17/18 6:12 AM) Amylase Lvl [25-115 unit/L] 52 unit/L (03/15/18 1:41 PM) Lipase Lvl [73-393 unit/L] 132 unit/L 159 unit/L 205 unit/L (03/17/18 6:12 AM) (03/16/18 4:11 AM) (03/15/18 1:41 PM) 1Result Comment: The eGFR is calculated [...] eGFR should be multiplied by the estimated BMI.3Result Comment: The eGFR is calculated using the [...] eGFR should be multiplied by the estimated BMI.LIPIDS Most recent to oldest [Reference Range]: 1 2 3 CHD Risk [3.90-5.80] 2.21 *LOW* (03/16/18 4:11 AM) Chol [<=199 mg/dL] 128 mg/dL (03/16/18 4:11 AM) Trig [<=149 mg/dL] 78 mg/dL (03/16/18 4:11 AM) HDL [>=61 mg/dL] 58 mg/dL *LOW* (03/16/18 4:11 AM) LDL (Calculated) [<=99 mg/dL] 54 mg/dL (03/16/18 4:11 AM) VLDL 16 *NA* (03/16/18 4:11 AM) ENDOCRINOLOGY Most recent to oldest [Reference Range]: 1 2 3 S Preg [Negative] Negative *NA* (03/15/18 1:41 PM) URINE AND STOOL Most recent to oldest [Reference Range]: 1 2 3 UA Turbidity [Clear] Slight *ABN* (03/15/18 1:41 PM) UA Color [Yellow] Yellow *NA* (03/15/18 1:41 PM) UA pH [5.0-8.0] 6.0 (03/15/18 1:41 PM) UA Spec Grav [<=1.030] 1.015 (03/15/18 1:41 PM) UA Glucose [Negative mg/dL] Negative mg/dL *NA* (03/15/18 1:41 PM) UA Blood [Negative] Large *ABN* (03/15/18 1:41 PM) UA Ketones [Negative mg/dL] Negative mg/dL *NA* (03/15/18 1:41 PM) UA Protein [Negative mg/dL] Negative mg/dL (03/15/18 1:41 PM) UA Urobilinogen [0.1-1.0 mg/dL] <=1.0 mg/dL *NA* (03/15/18 1:41 PM) UA Bili [Negative] Negative *NA* (03/15/18 1:41 PM) UA Leuk Est [Negative] Small *ABN* (03/15/18 1:41 PM) UA Nitrite [Negative] Negative (03/15/18 1:41 PM) UA WBC [0-5 /HPF] 6 /HPF *HI* (03/15/18 1:41 PM) UA RBC [0-2 /HPF] >182 /HPF *HI* (03/15/18 1:41 PM) UA Bacteria [None Seen /HPF] Occasional /HPF *NA* (03/15/18 1:41 PM) UA Sq Epi [Few /LPF] Many /LPF *ABN* (03/15/18 1:41 PM) UA Mucus [None Seen /LPF] Few /LPF *NA* (03/15/18 1:41 PM) Occult Bld Stl [Negative] Positive *ABN* (03/16/18 9:14 AM) HEMATOLOGY Most recent to oldest [Reference Range]: 1 2 3 WBC [3.7-10.4 K/CMM] 7.3 K/CMM (03/15/18 1:41 PM) RBC [4.20-5.40 M/CMM] 3.99 M/CMM *LOW* (03/15/18 1:41 PM) Hgb [12.0-16.0 g/dL] 12.1 g/dL (03/15/18 1:41 PM) Hct [36.0-48.0 %] 35.3 % *LOW* (03/15/18 1:41 PM) MCV [80.0-98.0 fL] 88.6 fL (03/15/18 1:41 PM) MCH [27.0-31.0 pg] 30.2 pg (03/15/18 1:41 PM) MCHC [32.0-36.0 g/dL] 34.1 g/dL (03/15/18 1:41 PM) RDW [11.5-14.5 %] 12.9 % (03/15/18 1:41 PM) MPV [7.4-10.4 fL] 7.7 fL (03/15/18 1:41 PM) Platelet [133-450 K/CMM] 250 K/CMM (03/15/18 1:41 PM) Segs [45.0-75.0 %] 69.5 % (03/15/18 1:41 PM) Lymphocytes [20.0-40.0 %] 19.9 % *LOW* (03/15/18 1:41 PM) Monocytes [2.0-12.0 %] 8.5 % (03/15/18 1:41 PM) Eosinophils [0.0-4.0 %] 1.6 % (03/15/18 1:41 PM) Basophils [0.0-1.0 %] 0.5 % (03/15/18 1:41 PM) Segs-Bands # [1.5-8.1 K/CMM] 5.1 K/CMM (03/15/18 1:41 PM) Lymphocytes # [1.0-5.5 K/CMM] 1.5 K/CMM (03/15/18 1:41 PM) Monocytes # [0.0-0.8 K/CMM] 0.6 K/CMM (03/15/18 1:41 PM) Eosinophils # [0.0-0.5 K/CMM] 0.1 K/CMM (03/15/18 1:41 PM) MOLECULAR DIAGNOSTIC Most recent to oldest [Reference Range]: 1 2 3 C difficile DNA [Negative] Negative (03/15/18 9:25 PM) Immunizations No data available for this [...] months.; entered on: 03/20/18 Assessment and Plan Extracted from: Title: GI Author: Grazyna Archibald NP Date: 03/18/18 Progress Note - Daily [facility] Completed: Sunday, MARCH 18, 2018, 16:15 by Grazyna Archibald NP RM: 425 - 1P, SE C4B SHALOM RIGGS 37y (: 1980) F Attending: Rafa Rodriguez MD Service: Internal Medicine Reason for Admission: ABDOMINAL PAIN Working DRG: Code status: None Specified=FULL CODE Current diet: Isolation: No Isolation/Standard Precautions Allergies: codeine(Codeine, Codeine, Codeine) SUBJECTIVE no new pain feeling somewhat better tolerating PO OBJECTIVE 24hr Labs 03/18 0759 Bili Direct 0.1 Sodium Lvl 142 Potassium Lvl 3.8 Chloride Lvl 108 CO2 31 AGAP 6.8 L Glucose Lvl 96 Creatinine Lvl 0.52 BUN 7 B/C Ratio 13 Total Protein 6.1 L Albumin Lvl 3.0 L Globulin 3.1 A/G Ratio 1.0 Calcium Lvl 8.2 L ALT 425 H AST 97 H Alk Phos 190 H Bili Total 0.3 eGFR 124 Warner still necessary (Yes/No): Line still necessary (Yes/No): Vitals Tmp(F) Pulse BP RR SpO2 FIO2 03/18 07:39 98.3 78 116/71 16 --- --- 03/17 22:42 ---- 54 149/105 -- --- --- 03/17 22:41 98.3 82 153/103 16 --- --- 03/17 20:10 98.6 72 159/110 22 99 --- 03/17 16:40 ---- 63 153/102 18 100 --- 24 Hr Tmax: 98.6F (37.00c) at 03/17 20:10 Vital Signs are the last 5 in the past 48 hours. Date Wt(kg) Wt(lb) Ht(cm) Ht(in) Method 03/15 (initial) 81.82 180.00 Estimated 03/15 165.10 65.00 Stated I&O Record In Out Bal 03/18 24hr Tot 582 0 582 03/17 24hr Tot 3213 0 3213 Medications (10) Active Scheduled Meds (3): 03/18/18 amoxicillin 500 mg PO ABXQ8H 03/15/18 famotidine (Pepcid) 20 mg PO Q12H 03/19/18 thiamine 100 mg PO Daily Unscheduled Meds: None PRN Meds (4): 03/15/18 morphine Sulfate 4 mg IV Q4H 03/18/18 morphine Sulfate 15 mg PO Q4H 03/15/18 ondansetron (Zofran) 4 mg IVP Q8H 03/17/18 oxyCODONE (oxyCODONE 5 mg oral tablet) 10 mg PO Q4H One Time Meds (2): 03/17/18 (Ordered) fentaNYL 50 microgram IV ONCE 03/17/18 (Completed) fentaNYL 25 microgram IV ONCE Continuous Infusions (1): 03/16/18 LVP solution with potassium 1,000 mL (D5W 1/2NS + KCL 20mEq/L 1000ml ( Premix) 1,000 mL) 1,000 mL 75 ml/hr General: No acute distress. HENT: Normocephalic, Neck: Supple, Non-tender. Respiratory: Lungs are clear to auscultation, Respirations are non-labored, Breath sounds are equal Cardiovascular: Normal rate, Regular rhythm, No murmur, Gastrointestinal: Soft, non tender, Non-distended. + surgical incisions c/d/i , Integumentary: Warm, Dry, Early. Neurologic: Alert, Oriented x 3 Psychiatric: Cooperative, Appropriate mood & affect. IMPRESSION 1. RUQ/Epigastric Pain- impriving 2. Abnormal LFTs- trending down - s/p HIDA- negative for bile leak - s/p ERCP- Abnormal orinetation of major papilla , A temporary biliary stent was placed, Mildly dilated CBD without evidence of stricture or filling defects. ? Sphincter dysfunction/papillary stenosis . Antral erosive erythema biospied 3. s/p lap kate- 4 days ago 4. Nausea and vomiting- improved 5. diarrhea- improved - c diff negative RECOMMENDATIONS 1. Low fat diet 2. Monitor abd pain 3. Follow biopsies 4. Follow up in GI Clinic in 2 weeks, 5. Repeat ERCP for stent removal w/wo sphincterotomy in 6 weeks 6. Ok to d/c from GI standpoint GI ATTENDING I have examined the patient with the DUE DILIGENCE COORDINATOR and confirmed the essential components of history, physical examination, diagnosis and treatment plan. I agree with the patient's care as documented by the DUE DILIGENCE COORDINATOR, and amended as needed herein by me. Surya Jeter MD GI Attending
--- OUTSIDE RECORDS SUMMARY | 2018-05-04 10:30 | XMS REPORT | Summary of Care ---
:1980 Author Organization [facility] Address [address] [place] [address]- Encounter HQ Mauricio_eneida(FIN) [id number] Date(s): 03/12/18 - 03/12/18 [facility] [id number] [place] [phone]- [phone] Discharge Disposition: Home or Self Care Attending Physician: Noman Ruth MD Referring Physician: Surya Jeter MD Vital Signs Most recent to oldest 1 2 3 [Reference Range]: Height 165.1 cm (03/06/18 10:57 AM) Temperature Oral [96.4-99.1 98.2 DegF DegF] (03/06/18 11:09 AM) Blood Pressure [90-140/60-90 118/95 mmHg 132/94 mmHg 111/86 mmHg mmHg] (03/12/18 11:20 AM) (03/12/18 11:00 AM) (03/12/18 10:40 AM) Respiratory Rate [14-20 BRMIN] 20 BRMIN 15 BRMIN 14 BRMIN (03/12/18 11:20 AM) (03/12/18 11:00 AM) (03/12/18 10:40 AM) Peripheral Pulse Rate [60-100 110 bpm bpm] *HI* (03/06/18 11:09 AM) Weight 84.091 kg (03/06/18 10:57 AM) Body Mass Index 30.85 m2 (03/06/18 10:57 AM) Problem List Condition Effective Dates Status Health Status Informant Abdominal distention(Confirmed) Active Abdominal pain(Confirmed) Active Erosive gastritis(Confirmed) Active Acute pyelonephritis(Confirmed) Resolved Appendicitis(Confirmed) Resolved Asthmatic bronchitis(Confirmed) Active Cholelithiasis(Confirmed) Active delivery(Confirmed) Resolved Chronic anxiety(Confirmed) Active Crohns disease(Confirmed) Resolved Diarrhea(Confirmed) Active Hemorrhoids(Confirmed) Resolved History of Active nephrolithiasis(Confirmed) Hypertensive disorder(Confirmed) Active MRSA(Confirmed)1, 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 Allergies, Adverse Reactions, Alerts Substance Reaction Severity Status codeine Codeine Active Codeine Codeine Medications acetaminophen (ANES) Route: IV, Drug form: INJ, ONCE, Stop date: 03/12/18 9:51:00 CDT Start Date: 03/12/18 Stop Date: 03/12/18 Status: Completedacetaminophen-hydrocodone 325 mg-10 mg oral tablet 1 tab, Route: PO, Drug Form: TAB, Dosing Weight 84.091, kg, Q4H, PRN Pain Score 4-6, Start date: 03/12/18 9:39:00 CDT, Duration: 30 day, Stop date: 04/11/18 9: 38:00 CDT Notes: Do not exceed 4gm/day of acetaminophen. (Same as: [place] 325/10) Start Date: 03/12/18 Stop Date: 03/12/18 Status: Discontinuedacetaminophen-hydrocodone 325 mg-5 mg oral tablet 1 tab, Route: PO, Drug Form: TAB, Dosing Weight 84.091, kg, Q4H, PRN Pain Score 4-6, Start date: 03/12/18 9:39:00 CDT, Duration: 30 day, Stop date: 04/11/18 9: 38:00 CDT Notes: (Same as: [place] 325/5) Do not exceed 4gm/day of acetaminophen. Start Date: 03/12/18 Stop Date: 03/12/18 Status: DiscontinuedANES acetaminophen 1,000 mg, Route: PO, Drug form: TAB, ONCE, Dosing Weight 84.091, kg, PRN Pain Score 1-3, Start date:03/12/18 9:42:00 CDT Start Date: 03/12/18 Stop Date: 03/12/18 Status: DiscontinuedANES albuterol 0.083% inhalation solution 2.49 mg, Route: NEB, Q20Min, Dosing Weight 84.091, kg, PRN Wheezing, Priority: STAT, Start date: 03/12/18 9:42:00 CDT, Duration: 30 day, Stop date: 04/11/18 9: 41:00 CDT Start Date: 03/12/18 Stop Date: 03/12/18 Status: DiscontinuedANES diphenhydrAMINE 12.5 mg, Route: IVP, Drug form: INJ, Q6H, Dosing Weight 84.091, kg, PRN Itching , Start date: 03/12/18 9:42:00 CDT, Duration: 30 day, Stop date: 04/11/18 9:41: 00 CDT Start Date: 03/12/18 Stop Date: 03/12/18 Status: DiscontinuedANES fentaNYL 50 microgram, Route: IVP, Q5Min, Dosing Weight 84.091, kg, PRN Pain Score 7-10, Priority: Routine, Start date: 03/12/18 9:42:00 CDT, Duration: 2 doses or times , Stop date: Limited # of times Start Date: 03/12/18 Stop Date: 03/12/18 Status: DiscontinuedANES fentaNYL 25 microgram, Route: IVP, Q5Min, Dosing Weight 84.091, kg, PRN Pain Score 4-6, Priority: Routine, Start date: 03/12/18 9:42:00 CDT, Duration: 4 doses or times , Stop date: Limited # of times Start Date: 03/12/18 Stop Date: 03/12/18 Status: DiscontinuedANES flumazenil 0.2 mg, Route: IVP, PRN, Dosing Weight 84.091, kg, PRN Benzodiazepine Reversal, Initial dose, Start date: 03/12/18 9:42:00 CDT, Duration: 30 day, Stop date: 12/28 9:41:00 CDT Start Date: 03/12/18 Stop Date: 03/12/18 Status: DiscontinuedANES hydrALAZINE 10 mg, Route: IVP, Q20Min, Dosing Weight 84.091, kg, PRN Elevated BP, Start date : 03/12/18 9:42:00 CDT, Duration: 2 doses or times, Stop date: Limited # of times Start Date: 03/12/18 Stop Date: 03/12/18 Status: DiscontinuedANES HYDROmorphone 0.5 mg, Route: IVP, Q5Min, Dosing Weight 84.091, kg, PRN Pain Score 7-10, Start date: 03/12/18 9:42:00 CDT, Duration: 4 doses or times, Stop date: Limited # of times Start Date: 03/12/18 Stop Date: 03/12/18 Status: CompletedANES ketOROLAC 30 mg, Route: IVP, ONCE, Dosing Weight 84.091, kg, Start date: 03/12/18 9:42:00 CDT, Stop date: 03/12/18 9:42:00 CDT Start Date: 03/12/18 Stop Date: 03/12/18 Status: DiscontinuedANES labetalol 10 mg, Route: IVP, Q5Min, Dosing Weight 84.091, kg, PRN Elevated BP, Start date : 03/12/18 9:42:00 CDT, Duration: 5 doses or times, Stop date: Limited # of times Start Date: 03/12/18 Stop Date: 03/12/18 Status: DiscontinuedANES naloxone 0.4 mg, Route: IVP, Q2MIN, Dosing Weight 84.091, kg, PRN Narcotic Reversal, Start date: 03/12/18 9:42:00 CDT, Duration: 8 doses or times, Stop date: Limited # of times Start Date: 03/12/18 Stop Date: 03/12/18 Status: DiscontinuedANES ondansetron 4 mg, Route: IVP, ONCE, Dosing Weight 84.091, kg, PRN Nausea & Vomiting, Start date: 03/12/18 9:42:00 CDT Start Date: 03/12/18 Stop Date: 03/12/18 Status: CompletedANES oxyCODONE 5 mg, Route: PO, Drug form: TAB, Q4H, Dosing Weight 84.091, kg, PRN Pain Score 4 -6, Start date: 03/12/18 9:42:00 CDT, Duration: 30 day, Stop date: 04/11/18 9:41 :00 CDT Start Date: 03/12/18 Stop Date: 03/12/18 Status: DiscontinuedcefOXitin (ANES) Route: IV, Drug form: INJ, ONCE, Stop date: 03/12/18 9:48:00 CDT Start Date: 03/12/18 Stop Date: 03/12/18 Status: CompletedcefOXitin + sterile water 20 mL 2 gm, Route: IVP, Drug form: INJ, ONCALL, Dosing Weight 84.091, kg, Start date: 03/12/18 7:00:00 CDT, Duration: 1 doses or times, ABX Indication: Surgical Prophylaxis Notes: (Same As: Mefoxin) MEDICATION WASTE Product Size: 2000 mgProduct Wasted: ___ mg Start Date: 03/12/18 Stop Date: 03/12/18 Status: Discontinueddexamethasone (ANES) Route: IV, Drug form: INJ, ONCE, Stop date: 03/12/18 9:51:00 CDT Start Date: 03/12/18 Stop Date: 03/12/18 Status: CompletedDilaudid 0.5 mg, 0.5 mL, Route: IVP, Drug form: INJ, Q5Min, Dosing Weight 84.091, kg, Start date: 03/12/18 10:50:00 CDT, Stop date: 04/11/18 10:45:00 CDT Notes: Same as: Dilaudid Start Date: 03/12/18 Stop Date: 03/12/18 Status: DiscontinuedfentaNYL (ANES) Route: IV, Drug form: INJ, ONCE, Stop date: 03/12/18 9:23:00 CDT Start Date: 03/12/18 Stop Date: 03/12/18 Status: Completedglycopyrrolate (ANES) Route: IV, Drug form: INJ, ONCE, Stop date: 03/12/18 9:51:00 CDT Start Date: 03/12/18 Stop Date: 03/12/18 Status: CompletedketOROLAC (ANES) IV, ONCE Start Date: 03/12/18 Stop Date: 03/12/18 Status: CompletedLactated Ringers Injection IV (ANES) 1000 mL Route: IV, Total Volume: 1,000, Start date: 03/12/18 8:47:00 CDT, Stop date: 01/25 9:47:00 CDT Start Date: 03/12/18 Stop Date: 03/12/18 Status: CompletedLactated Ringers Injection IV 1,000 mL 1,000 mL, Rate: 25 ml/hr, Infuse over: 40 hr, Route: IV, Dosing Weight 84.091 kg , Total Volume: 1,000, Start date: 03/12/18 6:48:00 CDT, Duration: 30 day, Stop date: 04/11/18 6:47:00 CDT, 1.99, m2 Start Date: 03/12/18 Stop Date: 03/12/18 Status: Discontinuedlidocaine (ANES) Route: IV, Drug form: INJ, ONCE, Stop date: 03/12/18 9:38:00 CDT Start Date: 03/12/18 Stop Date: 03/12/18 Status: Completedmidazolam (ANES) Route: IV, Drug form: SOLN, ONCE, Stop date: 03/12/18 9:23:00 CDT Start Date: 03/12/18 Stop Date: 03/12/18 Status: Completedneostigmine (ANES) Route: IV, Drug form: INJ, ONCE, Stop date: 03/12/18 9:51:00 CDT Start Date: 03/12/18 Stop Date: 03/12/18 Status: Completedondansetron (ANES) Route: IV, Drug form: INJ, ONCE, Stop date: 03/12/18 9:51:00 CDT Start Date: 03/12/18 Stop Date: 03/12/18 Status: Completedpropofol (ANES) Route: IV, Drug form: INJ, ONCE, Stop date: 03/12/18 9:38:00 CDT Start Date: 03/12/18 Stop Date: 03/12/18 Status: Completedrocuronium (ANES) Route: IV, Drug form: INJ, ONCE, Stop date: 03/12/18 9:38:00 CDT Start Date: 03/12/18 Stop Date: 03/12/18 Status: Completed Results URINE CHEM Most recent to oldest [Reference Range]: 1 2 U Preg [Negative] Negative Negative (03/12/18 7:37 AM) (03/06/18 11:11 AM) Immunizations No data available for this [...] Reg Smoking Cessation Counseling No1 entered on: 03/12/18 1Quit smoking 11/10/2017. Assessment and Plan No data available for this section
--- OUTSIDE RECORDS SUMMARY | 2018-05-04 10:30 | XMS REPORT | Summary of Care ---
:1980 Author Organization [facility] Address [address] [place] [phone]- Encounter HQ Gerardontr_eneida(FIN) [id number] Date(s): 12/04/17 - 12/04/[address] [address]- [phone] Discharge Disposition: Home or Self Care Attending Physician: Flaco Young MD Vital Signs Most recent to oldest [Reference Range]: 1 Height 165.1 cm (12/04/17 9:58 AM) Temperature Oral [96.4-99.1 DegF] 98.5 DegF (12/04/17 9:58 AM) Blood Pressure [90-140/60-90 mmHg] 162/120 mmHg *HI* (12/04/17 9:58 AM) Peripheral Pulse Rate [60-100 bpm] 128 bpm *HI* (12/04/17 9:58 AM) Weight 73.665 kg (12/04/17 9:58 AM) Body Mass Index 27.03 m2 (12/04/17 9:58 AM) Problem List Condition Effective Dates Status Health Status Informant Abdominal distention(Confirmed) Active Abdominal pain(Confirmed) Active Erosive gastritis(Confirmed) Active Acute pyelonephritis(Confirmed) Resolved Appendicitis(Confirmed) Resolved Asthmatic bronchitis(Confirmed) Active Cholelithiasis(Confirmed) Active delivery(Confirmed) Resolved Chronic anxiety(Confirmed) Active Crohns disease(Confirmed) Resolved Diarrhea(Confirmed) Active Hemorrhoids(Confirmed) Resolved History of Active nephrolithiasis(Confirmed) Hypertensive disorder(Confirmed) Active MRSA(Confirmed)1, 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 Allergies, Adverse Reactions, Alerts Substance Reaction Severity Status codeine Codeine Active Codeine Codeine Medications albuterol 90 mcg/inh inhalation aerosol 2 puff, INHALATION, QID, # 34 gm, 0 Refill(s), Pharmacy: [facility] [id number] Start Date: 12/04/17 Status: Ordereddicyclomine 20 mg oral tablet 20 mg=1 tab, PO, QID, PRN abdominal cramps, # 50 tab, 0 Refill(s), Pharmacy: [facility] [id number] Start Date: 12/05/17 Stop Date: 12/24/17 Status: DiscontinuedPARoxetine 20 mg oral tablet 20 mg=1 tab, PO, Daily, # 30 tab, 5 Refill(s), Pharmacy: [facility] [id number] Start Date: 12/04/17 Stop Date: 12/24/17 Status: Discontinuedtramadol 50 mg oral tablet 50 mg=1 tab, PO, Q6H, PRN Pain, # 40 tab, 0 Refill(s) Start Date: 12/04/17 Stop Date: 12/05/17 Status: Discontinuedtramadol 50 mg oral tablet 50 mg=1 tab, PO, Q6H, PRN Pain, # 30 tab, 0 Refill(s) Start Date: 12/05/17 Stop Date: 01/05/18 Status: Completed Results No data available for [...]
--- OUTSIDE RECORDS SUMMARY | 2018-05-04 10:30 | XMS REPORT | Summary of Care ---
:1980 Author Organization [facility] Address [address] [place] [id number]- Encounter HQ Encntr_alidemetra(FIN) [id number] Date(s): 12/05/17 - 12/06/[address] [address]- [phone] Vital Signs No data available for this section Problem List Condition Effective Dates Status Health Status Informant Abdominal distention(Confirmed) Active Abdominal pain(Confirmed) Active Erosive gastritis(Confirmed) Active Acute pyelonephritis(Confirmed) Resolved Appendicitis(Confirmed) Resolved Asthmatic bronchitis(Confirmed) Active Cholelithiasis(Confirmed) Active delivery(Confirmed) Resolved Chronic anxiety(Confirmed) Active Crohns disease(Confirmed) Resolved Diarrhea(Confirmed) Active Hemorrhoids(Confirmed) Resolved History of Active nephrolithiasis(Confirmed) Hypertensive disorder(Confirmed) Active MRSA(Confirmed)1, 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 Allergies, Adverse Reactions, [...]
--- OUTSIDE RECORDS SUMMARY | 2018-05-04 10:30 | XMS REPORT | Summary of Care ---
:1980 Author Organization [facility] Address [address] [place] [phone]- Encounter HQ Encntr_alias(FIN) [id number] Date(s): 12/12/17 - 12/13/[address] [address]- [phone] Vital Signs No data available for this section Problem List Condition Effective Dates Status Health Status Informant Abdominal distention(Confirmed) Active Abdominal pain(Confirmed) Active Erosive gastritis(Confirmed) Active Acute pyelonephritis(Confirmed) Resolved Appendicitis(Confirmed) Resolved Asthmatic bronchitis(Confirmed) Active Cholelithiasis(Confirmed) Active delivery(Confirmed) Resolved Chronic anxiety(Confirmed) Active Crohns disease(Confirmed) Resolved Diarrhea(Confirmed) Active Hemorrhoids(Confirmed) Resolved History of Active nephrolithiasis(Confirmed) Hypertensive disorder(Confirmed) Active MRSA(Confirmed)1, 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 Allergies, Adverse Reactions, [...]
--- OUTSIDE RECORDS SUMMARY | 2018-05-04 10:31 | XMS REPORT | Summary of Care ---
:1980 Author Organization [facility] Address [address] [place], [place] [address]- Encounter HQ Radha(TARA) [id number] Date(s): 03/27/16 - 03/27/16 [facility] [address] [place] [address]- [phone] Discharge Disposition: Home Attending Physician: Mony Miller MD Referring Physician: Mony Miller MD Vital Signs Most recent to oldest 1 2 3 [Reference Range]: Height 165.1 cm (03/14/16 9:10 AM) Temperature Oral [96.4-99.1 98.1 DegF DegF] (03/14/16 9:36 AM) Blood Pressure [90-140/60-90 127/89 mmHg 132/89 mmHg 158/102 mmHg mmHg] (03/27/16 6:45 PM) (03/27/16 6:30 PM) *HI* (03/27/16 6:15 PM) Respiratory Rate [14-20 BRMIN] 19 BRMIN 14 BRMIN 10 BRMIN (03/27/16 6:15 PM) (03/27/16 6:00 PM) *LOW* (03/27/16 5:45 PM) Peripheral Pulse Rate [60-100 94 bpm bpm] (03/14/16 9:36 AM) Weight 78.835 kg (03/14/16 9:10 AM) Body Mass Index 28.92 m2 (03/14/16 9:10 AM) Problem List Condition Effective Dates Status Health Status Informant Appendicitis(Confirmed) Resolved Hemorrhoids(Confirmed) Active Tonsillitis(Confirmed) Resolved Allergies, Adverse Reactions, Alerts Substance Reaction Severity Status NKDA Active Medications acetaminophen (ANES) (ANES) Route: IV, Drug form: INJ, Start date: 03/27/16 16:26:00 CDT, Stop date: 17:26:00 CDT Start Date: 03/27/16 Stop Date: 03/27/16 Status: Completedacetaminophen-hydrocodone 325 mg-5 mg oral tablet 1 tab, Route: PO, Drug Form: TAB, Dosing Weight 78.835, kg, Q4H, PRN Pain Score 4-6, Start date: 03/27/16 17:15:00 CDT, Duration: 30 day, Stop date: 04/26/16 17 :14:00 CDT Notes: (Same as: [place] 325/5) Do not exceed 4gm/day of acetaminophen. Start Date: 03/27/16 Stop Date: 03/28/16 Status: Discontinuedalbuterol 0.083% inhalation solution 2.49 mg, Route: NEB, Q20Min, Dosing Weight 78.835, kg, PRN Wheezing, Priority: STAT, Start date: 03/27/16 17:26:00 CDT, Duration: 30 day, Stop date: 04/26/16 17:25:00 CDT Start Date: 03/27/16 Stop Date: 03/27/16 Status: DiscontinuedDextrose 5% with 0.9% NaCl IV 1000 mL 1,000 mL, Rate: 25 ml/hr, Infuse over: 40 hr, Route: IV, Dosing Weight 78.835 kg , Total Volume: 1,000, Start date: 03/27/16 13:58:00 CDT, Duration: 30 day, Stop date: 04/26/16 13:57:00 CDT Start Date: 03/27/16 Stop Date: 03/27/16 Status: DiscontinuedDextrose 5% with 0.9% NaCl IV 1000 mL 1,000 mL, Rate: 125 ml/hr, Infuse over: 8 hr, Route: IV, Dosing Weight 78.835 kg , Total Volume: 1,000, Start date: 03/27/16 17:26:00 CDT, Duration: 30 day, Stop date: 04/26/16 17:25:00 CDT Start Date: 03/27/16 Stop Date: 03/27/16 Status: DiscontinueddiphenhydrAMINE 12.5 mg, Route: IVP, Drug form: INJ, Q6H, Dosing Weight 78.835, kg, PRN Itching , Start date: 03/27/16 17:26:00 CDT, Duration: 30 day, Stop date: 04/26/16 17:25 :00 CDT Start Date: 03/27/16 Stop Date: 03/27/16 Status: DiscontinuedExparel 20 mL, Route: InFILtration(local), Drug Form: INJ, Dosing Weight 78.835, kg, ONCALL, For Hemorrhoidectomy, Start date: 03/27/16 7:00:00 CDT, Duration: 30 day , Stop date: 04/26/16 6:59:00 CDT Notes: (Same as: Exparel) NOT FOR IV use Postoperative analgesia: Infiltration (local): Dose is based on surgical site and volume required to cover the area (in general, the maximum total dose is 266 mg).Bunionectomy: 7 mL into the tissues surrounding the osteotomy and 1 mL into the subcutaneous tissue of the surgical site (total dose=8 mL [106 mg])Hemorrhoidectomy: 30 mL ( 20 mL vial diluted with 10 mL NS) divided and administered as 6 injections of 5 mL each (total dose=30 mL [266 mg]) Start Date: 03/27/16 Stop Date: 03/28/16 Status: DiscontinuedfentaNYL 25 microgram, Route: IVP, Q5Min, Dosing Weight 78.835, kg, PRN Pain Score 4-6, Start date: 03/27/16 17:26:00 CDT, Duration: 4 doses or times, Stop date: Limited # of times Start Date: 03/27/16 Stop Date: 03/27/16 Status: CompletedfentaNYL (ANES) Route: IV, Drug form: INJ, ONCE, Stop date: 03/27/16 17:02:00 CDT Start Date: 03/27/16 Stop Date: 03/27/16 Status: Completedflumazenil 0.2 mg, Route: IVP, PRN, Dosing Weight 78.835, kg, PRN Benzodiazepine Reversal, Initial dose, Start date: 03/27/16 17:26:00 CDT, Duration: 30 day, Stop date: 17:25:00 CDT Start Date: 03/27/16 Stop Date: 03/27/16 Status: DiscontinuedFiliberto Gardnerbyron Trejo, Refill(s) 0 Start Date: 03/14/16 Status: Orderedhydromorphone 0.5 mg, Route: IVP, Q5Min, Dosing Weight 78.835, kg, PRN Pain Score 7-10, Start date: 03/27/16 17:26:00 CDT, Duration: 4 doses or times, Stop date: Limited # of times Start Date: 03/27/16 Stop Date: 03/27/16 Status: Discontinuedhydromorphone (ANES) Route: IV, Drug form: INJ, ONCE, Stop date: 03/27/16 17:12:00 CDT Start Date: 03/27/16 Stop Date: 03/27/16 Status: CompletedketOROLAC (ANES) IM, ONCE Start Date: 03/27/16 Stop Date: 03/27/16 Status: CompletedketOROLAC (ANES) IV, ONCE Start Date: 03/27/16 Stop Date: 03/27/16 Status: CompletedketOROLAC 10 mg oral tablet 10 mg=1 tab, PO, Q6H, PRN Pain, # 20 tab, 0 Refill(s), Pharmacy: [facility] [id number] Start Date: 03/27/16 Stop Date: 04/01/16 Status: OrderedLactated Ringers Injection IV (ANES) (ANES) Route: IV, Total Volume: 500, Start date: 03/27/16 16:10:00 CDT, Stop date: 17:10:00 CDT Start Date: 03/27/16 Stop Date: 03/27/16 Status: CompletedLactated Ringers Injection IV 500 mL 500 mL, Rate: 25 ml/hr, Infuse over: 20 hr, Route: IV, Dosing Weight 78.835 kg, Total Volume: 500, Start date: 03/27/16 13:58:00 CDT, Duration: 30 day, Stop date: 04/26/16 13:57:00 CDT Start Date: 03/27/16 Stop Date: 03/27/16 Status: Discontinuedlidocaine (ANES) Route: IV, Drug form: INJ, ONCE, Stop date: 03/27/16 17:02:00 CDT Start Date: 03/27/16 Stop Date: 03/27/16 Status: Completedmeperidine 12.5 mg, Route: IVP, Q30Min, Dosing Weight 78.835, kg, PRN Other -See Comment, For shivering, Start date: 03/27/16 17:26:00 CDT, Duration: 2 doses or times, Stop date: Limited # of times Start Date: 03/27/16 Stop Date: 03/27/16 Status: Discontinuedmidazolam (ANES) Route: IV, Drug form: SOLN, ONCE, Stop date: 03/27/16 17:02:00 CDT Start Date: 03/27/16 Stop Date: 03/27/16 Status: Completednaloxone 0.04 mg, Route: IVP, Q2MIN, Dosing Weight 78.835, kg, PRN Narcotic Reversal, Start date: 03/27/16 17:26:00 CDT, Duration: 8 doses or times, Stop date: Limited # of times Start Date: 03/27/16 Stop Date: 03/27/16 Status: DiscontinuedNormosol-R PH 7.4 1000 mL 1,000 mL, Rate: 25 ml/hr, Infuse over: 40 hr, Route: IV, Dosing Weight 78.835 kg , Total Volume: 1,000, Start date: 03/27/16 13:58:00 CDT, Duration: 30 day, Stop date: 04/26/16 13:57:00 CDT Start Date: 03/27/16 Stop Date: 03/27/16 Status: DiscontinuedONAbotulinumtoxinA 100 unit, Route: IM, Drug form: INJ, ONCALL, Start date: 03/26/16 17:00:00 CDT, Duration: 2 day, Stop date: 03/28/16 16:59:00 CDT Notes: "TO BE RECONSTITUTED AND ADMINISTERED ONLY BY A PHYSICIAN"Reconstitute with preservative freeNS only. Stability=4 hours after reconstitution. (Same As : Botox)WASTE: F/P - Red; E -Red Start Date: 03/26/16 Stop Date: 03/28/16 Status: Discontinuedondansetron 4 mg, Route: IVP, ONCE, Dosing Weight 78.835, kg, PRN Nausea & Vomiting, Start date: 03/27/16 17:26:00 CDT Start Date: 03/27/16 Stop Date: 03/27/16 Status: Completedondansetron (ANES) Route: IV, Drug form: INJ, ONCE, Stop date: 03/27/16 17:02:00 CDT Start Date: 03/27/16 Stop Date: 03/27/16 Status: CompletedoxyCODONE 10 mg, Route: PO, Drug form: TAB, Q4H, Dosing Weight 78.835, kg, PRN Pain Score 7-10, Start date: 03/27/16 17:26:00 CDT, Duration: 30 day, Stop date: 04/26/16 17:25:00 CDT Start Date: 03/27/16 Stop Date: 03/27/16 Status: DiscontinuedoxyCODONE 5 mg, Route: PO, Drug form: TAB, Q4H, Dosing Weight 78.835, kg, PRN Pain Score 4 -6, Start date: 03/27/16 17:26:00 CDT, Duration: 30 day, Stop date: 04/26/16 17: 25:00 CDT Start Date: 03/27/16 Stop Date: 03/27/16 Status: Discontinuedpromethazine 6.25 mg, Route: IVPB, ONCE, Dosing Weight 78.835, kg, PRN Nausea & Vomiting , Start date: 03/27/16 17:26:00 CDT Start Date: 03/27/16 Stop Date: 03/27/16 Status: Discontinuedpropofol (ANES) Route: IV, Drug form: INJ, ONCE, Stop date: 03/27/16 17:02:00 CDT Start Date: 03/27/16 Stop Date: 03/27/16 Status: CompletedSodium Chloride 0.9% (Bolus) IV 500 mL, Infuse Over: 20 minutes, Route: IV, ONCE, Dosing Weight 78.835 kg, Start date: 03/27/16 17:26:00 CDT, Stop date: 03/27/16 17:26:00 CDT Start Date: 03/27/16 Stop Date: 03/27/16 Status: DiscontinuedSodium Chloride 0.9% IV 500 mL 500 mL, Rate: 125 ml/hr, Infuse over: 4 hr, Route: IV, Dosing Weight 78.835 kg, Total Volume: 500, Start date: 03/27/16 13:58:00 CDT, Duration: 30 day, Stop date: 04/26/16 13:57:00 CDT Start Date: 03/27/16 Stop Date: 03/27/16 Status: DiscontinuedSodium Chloride 0.9% IV 500 mL 500 mL, Rate: 125 ml/hr, Infuse over: 4 hr, Route: IV, Dosing Weight 78.835 kg, Total Volume: 500, Start date: 03/27/16 17:26:00 CDT, Duration: 30 day, Stop date: 04/26/16 17:25:00 CDT Start Date: 03/27/16 Stop Date: 03/27/16 Status: DiscontinuedTylenol with Codeine #3 oral tablet 1 tab, PO, Q6H, PRN for pain, # 30 tab, 0 Refill(s) Start Date: 03/27/16 Stop Date: 04/06/16 Status: Ordered Results ELECTROLYTES Most recent to oldest [Reference Range]: 1 2 Sodium Lvl [135-145 mEq/L] 139 mEq/L (03/14/16 9:26 AM) Potassium Lvl [3.5-5.1 mEq/L] 3.1 mEq/L *LOW* (03/14/16 9:26 AM) Chloride Lvl [95-109 mEq/L] 100 mEq/L (03/14/16 9:26 AM) CO2 [24-32 mEq/L] 32 mEq/L (03/14/16 9:26 AM) AGAP [10.0-20.0 mEq/L] 10.1 mEq/L (03/14/16 9:26 AM) CHEM PANEL Most recent to oldest [Reference Range]: 1 2 Creatinine Lvl [0.50-1.40 mg/dL] 0.77 mg/dL (03/14/16 9:26 AM) eGFR 101 mL/min/1.73m2 1 *NA* (03/14/16 9:26 AM) BUN [7-22 mg/dL] 17 mg/dL (03/14/16 9:26 AM) Glucose Lvl [70-99 mg/dL] 85 mg/dL (03/14/16 9:26 AM) Calcium Lvl [8.5-10.5 mg/dL] 8.6 mg/dL (03/14/16 9:26 AM) 1Result Comment: The eGFR is calculated [...] 1 2 U Preg [Negative] Negative Negative (03/27/16 1:15 PM) (03/14/16 9:26 AM) URINE AND STOOL Most recent to oldest [Reference Range]: 1 2 UA Turbidity [Clear] Clear (03/14/16 9:26 AM) UA Color Colorless *NA* (03/14/16 9:26 AM) UA pH [5.0-8.0] 6.0 (03/14/16 9:26 AM) UA Spec Grav [<=1.030] 1.008 (03/14/16 9:26 AM) UA Glucose [Negative mg/dL] Negative mg/dL *NA* (03/14/16 9:26 AM) UA Blood [Negative] Negative (03/14/16 9:26 AM) UA Ketones [Negative mg/dL] Negative mg/dL *NA* (03/14/16 9:26 AM) UA Protein [Negative mg/dL] Negative mg/dL (03/14/16 9:26 AM) UA Urobilinogen [0.1-1.0 mg/dL] 2.0 mg/dL *HI* (03/14/16 9:26 AM) UA Bili [Negative] Negative *NA* (03/14/16 9:26 AM) UA Leuk Est [Negative] Negative (03/14/16 9:26 AM) UA Nitrite [Negative] Negative (03/14/16 9:26 AM) UA WBC [0-5 /HPF] <1 /HPF (03/14/16 9:26 AM) UA RBC [0-2 /HPF] 2 /HPF (03/14/16 9:26 AM) UA Bacteria [None Seen /HPF] Occasional /HPF *NA* (03/14/16 9:26 AM) UA Sq Epi None Seen *NA* (03/14/16 9:26 AM) HEMATOLOGY Most recent to oldest [Reference Range]: 1 2 Hgb [12.0-16.0 g/dL] 13.1 g/dL (03/14/16 9:26 AM) Hct [36.0-48.0 %] 39.7 % (03/14/16 9:26 AM) Immunizations No data available for this section Procedures Procedure Date Related Diagnosis Body Site Tonsillectomy 2006 Breast augmentation 2005 ACL - Repair of anterior cruciate ligament 1997 Appendectomy 1986 Abdominoplasty section1 1x 4 Social History Social History Type Response Substance Abuse Use: None. Alcohol Current, Type Beer. Frequency: 1-2 times per week. Smoking Status Current some day smoker; Type: Cigarettes; Exposure to Tobacco Smoke Self; Cigarette Smoking Last 365 Days Yes; Reg Smoking Cessation Counseling No Assessment and Plan Extracted from: Title: Clinical Document Author: Mony Miller MD Date: 03/27/16 [facility] OFFICE CONSULTATION NOTE: MONY MILLER MD, FACS, FASCRS CC: Fissure hemorrhoids HPI: The patient is a pleasant 35-year-old woman who was kindly referred by for surgical consultation for chronic hemorrhoids and fissure. She reports that she had 4 pregnancies and 4 C-sections which led to chronic hemorrhoidal prolapse. The patient reports that in the last 2 years she has developed significant anal pain that is practically constant during the day and more significant after defecation. It is sharp and she also notices bright red bleeding with her bowel movements. She tried numerous medications including [id number]-[id number] hemorrhoidal creams, sitz baths, topical lidocaine application and she noticed little improvement. She reports that she had a colonoscopy 6 years ago which was normal - it was performed during a workup for endometriosis. She has currently constipation . She reports that she lifts only her children and no other heavy weight. ROS: Constitutional Symptoms: no fever, no weight loss, no weight gain, no fatigue , no malaise Eyes: no diplopia, no blurred vision, no redness, no discharge, no loss of vision Ears, Nose, Mouth, Throat: no dysphagia, no odynophagia, no otalgia, no deafness, no rhinorrhea Cardiovascular: no chest pain, no SOB, no SHEA, no orthopnea, no PND, exercise tolerated, no palpitations Respiratory: same as CVS, no cough, no hemoptysis Gastrointestinal: no NVD, no BPR, no dark stool, no constipation, no abdominal pain Genitourinary: no dysuria, no frequency, no urgency, no nocturia, no incontinence Musculoskeletal: no arthralgia, no myalgia, no stiffness Integumentary: (skin and/or breast): no rash, no hives, no breast pain, no mass , no nipple dc Neurological: no weakness, no headache, no seizure, no dizziness, no tingling, no numbness Psychiatric: no anxiety, no depression, no insomnia Endocrine: no polyuria, no polydipsia, no fatigue, no weight loss, no weight gain, no cold or heat intolerance, no palpitations Hematologic/Lymphatic: no bleeding, no bruising, no edema, no lumps (axilla groin neck) Allergic/Immunologic: no rash, no allergies, no fever, no chills PMH: Tonsillectomy: 2006 Breast augmentation: 2005 ACL - Repair of anterior cruciate ligament: 1997 Appendectomy: 1986 section Abdominoplasty Appendicitis Tonsillitis Alcohol Details: Current, Type Beer. Frequency: 1-2 times per week. Tobacco Details: Use: Current some day smoker. Type: Cigarettes. Tobacco smoke exposure: Self. Did the Patient Smoke Cigarettes Anytime During the Last 365 Days? Yes. Cessation Counseling Provided? No. No qualifying data available Medication List Active Medications Prescribed docusate: 100 mg, 1 cap, PO, BID, Take while using Rx pain medication, PRN: Constipation, 60 cap, 3 Refill(s). lidocaine topical: See Instructions, 5 ml TOP up to twice daily PRN pain, PRN: Other -See Comment, 30 mL, 0 Refill(s). naproxen: 500 mg, 1 tab, PO, BID, for 14 day, PRN: Pain, 28 tab, 0 Refill(s). Documented non-formulary: 0 Refill(s). Medications Inactivated in the Last 72 Hours No medications found. Allergies: NKDA PHYSICAL EXAM: Vitals Tmp(F) Pulse BP RR SpO2 FIO2 (no data in last 48 hours) 24 Hr Tmax: No Data Available Vital Signs are the last 5 in the past 48 hours. No qualifying data available. No qualifying data available. No qualifying data available. No qualifying data available. No qualifying data available. General: Well developed, well nourished, in no acute distress. Head & Neck: Normocephalic, neck supple, no palpable thyroid masses. Eyes: Extra ocular muscles intact, sclera anicteric, pupils within normal limits. Ear, Nose, & Throat: No abnormalities noted. Cardiovascular: Regular rate and rhythm, no murmurs or gallop. No peripheral edema. Respiratory: Rises symmetrically, clear to auscultation, no wheezes or ronchi. Genitourinary: Normal genitalia. Extremities: Normal gait, muscle tone, and range of motion, no cyanosis or tenderness. Skin: Normal color, turgor, no rash or cyanosis. Lymphatic: No palpable lymph nodes. Neurologic: Normal sensation and strength, normal gait and speech, moves all extremities. Psychiatric: Alert and oriented, normal judgment, mood and affect. Abdomen is soft nontender in all quadrands, nondistended, there is no organomegaly, no masses, no rebound, no peritonitis, no inguinal adenopathy Anorectal: Anoscopy reveals 3 large skin texture descending using 8 cm anterior midline posterior midline and right anterior skin verge. Digital rectal exam reveals a increased resting Sphincter tone. Anoscopy reveals a broad-based chronic posterior midline fissure with a small subcutaneous fistula in ano under the posterior midline skin tag with no acute abscess. Anoscopy reveals grade 3 internal h emorrhoids with stigmata of recent bleeding in all 3 sites. Rigid proctoscopy reveals no evidence of rectal lesions no polyps and brown stool in vault. 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 She understands and she agrees with the procedure. The risks, benefits, and alternatives were discussed with the patient. The risks include, but are not limited to, pain, bleeding, infection, fecal incontinence, anal stenosis, anal fistula, urinary rete ntion, persistent or recurrent of condition need for further surgery, and perioperative cardiopulmonary complications. I answered all questions to the patient s questions. The patient agrees to proceed. Total exam, coordination of care, and time spent educating the patient > [address] referral physician [address] Ruth
--- OUTSIDE RECORDS SUMMARY | 2018-05-04 10:31 | XMS REPORT | Summary of Care ---
:1980 Author Organization [facility] Address [address] [place], [place] [address]- Encounter HQ Radha(TARA) [id number] Date(s): 12/30/15 - 12/30/15 [facility] [address] [place] [address]- Discharge Disposition: Home Attending Physician: Jourdan Rob MD Vital Signs Most recent to oldest 1 2 3 [Reference Range]: Height 165.1 cm (12/30/15 4:19 PM) Temperature Oral [96.4-99.1 98.5 DegF 98.5 DegF 98.0 DegF DegF] (12/30/15 8:34 PM) (12/30/15 7:43 PM) (12/30/15 4:19 PM) Blood Pressure [90-140/60-90 146/101 mmHg 137/104 mmHg 148/98 mmHg mmHg] *HI* (12/30/15 7:43 PM) *HI* (12/30/15 8:34 PM) (12/30/15 4:19 PM) Respiratory Rate [14-20 BRMIN] 18 BRMIN 18 BRMIN 16 BRMIN (12/30/15 8:34 PM) (12/30/15 7:43 PM) (12/30/15 4:19 PM) Peripheral Pulse Rate [60-100 93 bpm 103 bpm 104 bpm bpm] (12/30/15 8:34 PM) *HI* *HI* (12/30/15 7:43 PM) (12/30/15 4:19 PM) Weight 81.818 kg (12/30/15 4:19 PM) Body Mass Index 30.02 m2 (12/30/15 4:19 PM) Problem List No data available for this section Allergies, Adverse Reactions, Alerts Substance Reaction Severity Status NKDA Active Medications Flexeril 10 mg, 1 tab, Route: PO, Drug form: TAB, ONCE, Dosing Weight 81.818, kg, Priority: STAT, Start date:12/30/15 16:33:00, Stop date: 12/30/15 16:33:00 Notes: (Same As: Flexeril) Start Date: 12/30/15 Stop Date: 12/30/15 Status: CompletedFlexeril 10 mg oral tablet 10 mg, PO, TID, PRN Muscle Spasm, X 10 day, # 30 tab, 0 Refill(s) Start Date: 12/30/15 Stop Date: 01/09/16 Status: OrderedKenalog-40 40 mg, 1 mL, Route: intra-ARTICULAR, Drug form: INJ, ONCE, Dosing Weight 81.818 , kg, Start date: 12/30/15 17:57:00, Stop date: 12/30/15 17:57:00 Notes: (Same As: Kenalog-40) MEDICATION WASTE Product Size: 40 mgProduct Wasted: ___ mg Start Date: 12/30/15 Stop Date: 12/30/15 Status: CompletedketOROLAC 60 mg, 2 mL, Route: IM, Drug form: INJ, ONCE, Dosing Weight 81.818, kg, Priority : STAT, Start date: 12/30/15 16:33:00, Stop date: 12/30/15 16:33:00 Notes: (Same as:Toradol) IV bolus must be given >15 seconds. Give IM administration slowly and deeply into the muscle.Not for use > 4 days MEDICATION WASTE Product Size: 60 mgProduct Wasted: ___ mg Start Date: 12/30/15 Stop Date: 12/30/15 Status: Completedmorphine Sulfate 4 mg, Route: IM, ONCE, Dosing Weight 81.818, kg, Start date: 12/30/15 18:20:00, Stop date: 12/30/15 18:20:00 Start Date: 12/30/15 Stop Date: 12/30/15 Status: CompletedNaprosyn 500 mg oral tablet 500 mg=1 tab, PO, BID, PRN Pain, # 28 tab, 0 Refill(s) Start Date: 12/30/15 Stop Date: 01/13/16 Status: OrderedNorco 10/325 oral tablet 1 tab, Route: PO, Dosing Weight 81.818, kg, ONCE, Start date: 12/30/15 18:19:00 , Stop date: 12/30/1617:19:00 Start Date: 12/30/15 Stop Date: 12/30/15 Status: DiscontinuedUltram 50 mg oral tablet 100 mg, 2 tab, Route: PO, Drug form: TAB, ONCE, Dosing Weight 81.818, kg, Priority: STAT, Start date: 12/30/15 16:33:00, Stop date: 12/30/15 16:33:00 Notes: Not to exceed 400mg/day. (Same As: Ultram) Start Date: 12/30/15 Stop Date: 12/30/15 Status: CompletedZofran ODT 4 mg, Route: PO, Drug form: TABDIS, ONCE, Dosing Weight 81.818, kg, Priority: STAT, Start date: 12/30/15 18:20:00, Stop date: 12/30/15 18:20:00 Start Date: 12/30/15 Stop Date: 12/30/15 Status: Completed Results No data available for this section Immunizations No data available for this section Procedures No data available for this section Social History Social History Type Response Smoking Status Never smoker; Exposure to Tobacco Smoke None; Cigarette Smoking Last 365 Days No; Reg Smoking Cessation Counseling No Assessment and Plan No data available for this section
--- OUTSIDE RECORDS SUMMARY | 2018-05-04 10:31 | XMS REPORT | Summary of Care ---
:1980 Author Organization [facility] Address [address] [place] [id number] Encounter HQ Encntr_alidemetra(FIN) [id number] Date(s): 04/22/18 - 04/23/[address] [address]- [phone] Vital Signs No data available for this section Problem List Condition Effective Dates Status Health Status Informant Abdominal distention(Confirmed) Active Abdominal pain(Confirmed) Active Erosive gastritis(Confirmed) Active Acute pyelonephritis(Confirmed) Resolved Appendicitis(Confirmed) Resolved Asthmatic bronchitis(Confirmed) Active Cholelithiasis(Confirmed) Active delivery(Confirmed) Resolved Chronic anxiety(Confirmed) Active Crohns disease(Confirmed) Resolved Diarrhea(Confirmed) Active Hemorrhoids(Confirmed) Resolved History of Active nephrolithiasis(Confirmed) Hypertensive disorder(Confirmed) Active MRSA(Confirmed)1, 2 01/28/18 Active Tonsillitis(Confirmed) Resolved 1urine, 01/28/201889725Zepexhh added by Discern Expert. Allergies, Adverse Reactions, Alerts Substance Reaction Severity Status codeine Codeine Active Codeine Codeine Medications busPIRone 7.5 mg oral tablet See Instructions, TAKE 1 TABLET BY MOUTH TWICE DAILY, # 60 tab, 1 Refill(s), Pharmacy: [facility] [id number] Start Date: 04/22/18 Status: Ordered Results No data available for this section [...] months.; entered on: 04/07/18 Assessment and Plan No data available for this section
--- OUTSIDE RECORDS SUMMARY | 2018-05-04 10:31 | XMS REPORT | Summary of Care ---
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 Allergies, Adverse Reactions, [...] [id number], # 15 cap, 0 Refill(s), [email or web address] [id number] Start Date: 03/18/18 Stop Date: 03/19/18 Status: Completedciprofloxacin 400 mg, Route: IVPB, [id number], Dosing Weight 81.818, kg, Start date: 03/18/18 9: 00:00 CDT, Duration: 3 day, Stop date: 03/20/18 21:00:00 CDT, ABX Indication: Urinary Tract Infection Start Date: 03/18/18 Stop Date: 03/18/18 Status: Canceledciprofloxacin 400 mg, 200 mL, Route: IVPB, Drug form: INJ, [id number], Dosing Weight 81.818, kg, Start date: 03/15/1819:00:00 CDT, Duration: 3 day, Stop date: 03/18/18 7:00:00 CDT, ABX Indication: Urinary Tract Infection Notes: Do not refrigerate Start Date: 03/15/18 Stop Date: 03/18/18 Status: [id number] 1/2NS + KCL 20mEq/L 1000ml (Premix) 1,000 mL 1,000 mL, Rate: 75 ml/hr, Infuse over: 13.3 hr, Route: IV, Dosing Weight 81.818 kg, Total Volume: 1,000, Start date: 03/16/18 10:57:00 CDT, Duration: 30 day, Stop date: 04/15/18 10:56:00 CDT, 1.96, m2 Notes: PREMIX IV - Do Not AlterWASTE: F/P - Sink; E - Municipal Trash Bin Start Date: 03/16/18 Stop Date: 03/18/18 Status: [id number] 1/2NS + KCL 20mEq/L 1000ml (Premix) 1000 [...] Pharmacy: [facility] [id number] Start Date: 03/18/18 Stop Date: 03/19/18 Status: [...] NP Date: 03/18/18 Progress Note - Daily [facility] Completed: Sunday, MARCH 18, 2018, 16:15 by [...] surgical incisions c/d/i , Integumentary: Warm, Dry, [place]. Neurologic: Alert, Oriented x 3 Psychiatric: Cooperative, [...] I have examined the patient with the FARM CONSULTANT and confirmed the essential components of history, physical examination, diagnosis and treatment plan. I agree with the patient's care as documented by the FARM CONSULTANT, and amended as needed herein by me. Surya Jeter MD GI Attending
--- OUTSIDE RECORDS SUMMARY | 2018-05-04 10:31 | XMS REPORT | Summary of Care ---
:1980 Author Organization [facility] Address [address] [place], [place] [address]- Encounter HQ Gerardontr_eneida(FIN) [id number] Date(s): 03/20/18 - 03/22/18 [facility] [address] [place] [address]- Discharge Disposition: Home or Self Care Attending Physician: Marcelo Enriquez MD Admitting Physician: Marcelo Enriquez MD Vital Signs Most recent to oldest 1 2 3 [Reference Range]: Height 165.1 cm (03/21/18 3:00 AM) Temperature Oral [96.4-99.1 98.2 DegF 98.4 DegF 97.8 DegF DegF] (03/22/18 11:39 AM) (03/22/18 7:58 AM) (03/22/18 3:39 AM) Blood Pressure [90-140/60-90 120/83 mmHg 112/82 mmHg 99/53 mmHg mmHg] (03/22/18 11:39 AM) (03/22/18 7:58 AM) (03/22/18 3:39 AM) Respiratory Rate [14-20 BRMIN] 18 BRMIN 18 BRMIN 16 BRMIN (03/22/18 11:39 AM) (03/22/18 7:58 AM) (03/22/18 3:39 AM) Peripheral Pulse Rate [60-100 66 bpm 69 bpm 71 bpm bpm] (03/22/18 11:39 AM) (03/22/18 7:58 AM) (03/22/18 3:39 AM) Weight 81.818 kg 81.818 kg (03/21/18 3:00 AM) (03/20/18 8:49 PM) Body Mass Index 30.02 m2 (03/21/18 3:00 AM) Problem List Condition Effective Dates Status Health Status Informant Abdominal distention(Confirmed) Active Abdominal pain(Confirmed) Active Erosive gastritis(Confirmed) Active Acute pyelonephritis(Confirmed) Resolved Appendicitis(Confirmed) Resolved Asthmatic bronchitis(Confirmed) Active Cholelithiasis(Confirmed) Active delivery(Confirmed) Resolved Chronic anxiety(Confirmed) Active Crohns disease(Confirmed) Resolved Diarrhea(Confirmed) Active Hemorrhoids(Confirmed) Resolved History of Active nephrolithiasis(Confirmed) Hypertensive disorder(Confirmed) Active MRSA(Confirmed)1, 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 Allergies, Adverse Reactions, Alerts Substance Reaction Severity Status codeine Codeine Active Codeine Codeine Medications busPIRone 7.5 mg, 1.5 tab, Route: PO, Drug form: TAB, BID, Dosing Weight 81.818, kg, Start date: 03/21/18 17:00:00 CDT, Duration: 30 day, Stop date: 04/20/18 9:00: 00 CDT Notes: (Same As: BuSpar) Start Date: 03/21/18 Stop Date: 03/22/18 Status: DiscontinuedketOROLAC 30 mg, 1 mL, Route: IVP, Drug form: INJ, Q6Hnow, Dosing Weight 81.818, kg, Start date: 03/21/18 22:00:00 CDT, Duration: 24 hr, Stop date: 03/22/18 16:00: 00 CDT Notes: (Same as:Toradol) IV bolus must be given >15 seconds. Give IM administration slowly and deeply into the muscle.Not for use > 4 days MEDICATION WASTE Product Size: 30 mgProduct Wasted: ___ mg Start Date: 03/21/18 Stop Date: 03/22/18 Status: Pending CompleteketOROLAC 10 mg oral tablet 10 mg=1 tab, PO, Q6H, PRN Pain Score 1-3, X 7 day, # 28 tab, 1 Refill(s), Pharmacy: [facility] [id number] Start Date: 03/22/18 Stop Date: 04/05/18 Status: Orderedmorphine 15 mg oral tablet, immediate release 15 mg, 1 tab, Route: PO, Drug form: TAB, Q4H, Dosing Weight 81.818, kg, PRN Pain Score 7-10, Start date: 03/22/18 4:00:00 CDT, Duration: 30 day, Stop date: 04/21/18 3:59:00 CDT Notes: (Same as:MORPhine Sulfate) Start Date: 03/22/18 Stop Date: 03/22/18 Status: Discontinuedmorphine 15 mg oral tablet, immediate release 30 mg, Route: PO, Drug form: TAB, ONCE, Dosing Weight 81.818, kg, PRN Pain Score 4-6, Start date: 03/21/18 23:28:00 CDT Start Date: 03/21/18 Stop Date: 03/21/18 Status: Discontinuedmorphine 15 mg oral tablet, immediate release 30 mg, 2 tab, Route: PO, Drug form: TAB, ONCE, Dosing Weight 81.818, kg, Start date: 03/21/18 23:30:00 CDT, Stop date: 03/21/18 23:30:00 CDT Notes: (Same as:MORPhine Sulfate) Start Date: 03/21/18 Stop Date: 03/22/18 Status: Completedmorphine Sulfate 4 mg, 4 mL, Route: IV, Drug form: INJ, Q2H, Dosing Weight 81.818, kg, PRN Pain Score 7-10, Start date: 03/20/18 22:32:00 CDT, Stop date: 04/19/18 22:31:00 CDT Notes: (Same as: Astramorph-PF) Start Date: 03/20/18 Stop Date: 03/21/18 Status: Discontinuedmorphine Sulfate 12 mg, 6 mL, Route: PO, Drug form: SOLN, Q4H, PRN Pain Score 7-10, Start date: 03/21/18 16:46:00 CDT, Duration: 30 day, Stop date: 04/20/18 16:45:00 CDT Notes: (Same as:MORPhine Sulfate) Start Date: 03/21/18 Stop Date: 03/21/18 Status: Discontinuedmorphine Sulfate 4 mg, 1 mL, Route: IVP, Drug form: SOLN, ONCE, Dosing Weight 81.818, kg, Priority: STAT, Start date:03/20/18 21:08:00 CDT, Stop date: 03/20/18 21:08:00 CDT Notes: (Same as:MORPhine Sulfate) Start Date: 03/20/18 Stop Date: 03/20/18 Status: Completedmorphine Sulfate 4 mg, 1 mL, Route: IV, Drug form: SOLN, Q3H, Dosing Weight 81.818, kg, PRN Pain Score 7-10, Start date: 03/21/18 19:28:00 CDT, Duration: 30 day, Stop date: 09/27 19:27:00 CDT Notes: (Same as:MORPhine Sulfate) Start Date: 03/21/18 Stop Date: 03/21/18 Status: Discontinuednormal saline 0.9% IV 1,000 mL 1,000 mL, Rate: 1,000 ml/hr, Infuse over: 1 hr, Route: IV, Dosing Weight 81.818 kg, Total Volume: 1,000, Priority: STAT, Start date: 03/20/18 20:54:00 CDT, Duration: 1 doses or times, Stop date: 03/20/18 21:53:00 CDT, 1.96, m2 Start Date: 03/20/18 Stop Date: 03/20/18 Status: Completedondansetron 4 mg, 2 mL, Route: IVP, Drug form: INJ, ONCE, Dosing Weight 81.818, kg, PRN Nausea & Vomiting, Start date: 03/21/18 0:45:00 CDT Notes: (Same as: Gosia) MEDICATION WASTE Product Size: 4 mgProduct Wasted: ___ mg Start Date: 03/21/18 Stop Date: 03/21/18 Status: Completedondansetron 4 mg, 2 mL, Route: IVP, Drug form: INJ, Q4H, Dosing Weight 81.818, kg, PRN Nausea & Vomiting, Start date: 03/21/18 21:58:00 CDT, Duration: 30 day, Stop date: 04/20/18 21:57:00 CDT Notes: (Same as: Gosia) MEDICATION WASTE Product Size: 4 mgProduct Wasted: ___ mg Start Date: 03/21/18 Stop Date: 03/22/18 Status: Discontinuedpolyethylene glycol 3350 with electrolytes 4,000 mL, Route: PO, Drug Form: PDR/REC, Dosing Weight 81.818, kg, ONCE, Start date: 03/21/18 0:45:00 CDT, Stop date: 03/21/18 0:45:00 CDT Notes: (polyethylene glycol electrolyte solution 4 Liter bottle) (Same as: Tavia Meier) Start Date: 03/21/18 Stop Date: 03/21/18 Status: Discontinuedpolyethylene glycol 3350 with electrolytes 4,000 mL, Route: PO, Drug Form: PDR/REC, Dosing Weight 81.818, kg, ONCE, Start date: 03/21/18 18:00:00 CDT, Stop date: 03/21/18 18:00:00 CDT Notes: (Same as: Nulytely) Start Date: 03/21/18 Stop Date: 03/21/18 Status: CompletedProtonix 40 mg, Route: IV, Drug form: INJ, BID-Before Meals, Dosing Weight 81.818, kg, Start date: 03/21/18 7:30:00 CDT, Duration: 30 day, Stop date: 04/19/18 16:30: 00 CDT Notes: For IV push reconstitute with 10 ml 0.9% sodium chloride and push over 2 minutes. (Same as: Protonix) Start Date: 03/21/18 Stop Date: 03/22/18 Status: DiscontinuedSaline Flush 0.9% 10 ml, Route: IVP, Drug Form: INJ, Dosing Weight 81.818, kg, PRN, PRN Line Flush , Start date: 03/21/18 0:45:00 CDT, Duration: 30 day, Stop date: 04/20/18 0:44: 00 CDT Notes: (Same as: BD Posiflush) Start Date: 03/21/18 Stop Date: 03/22/18 Status: DiscontinuedSaline Flush 0.9% 10 mL, Route: IVP, Drug Form: INJ, Dosing Weight 81.818, kg, PRN, PRN Line Flush , Start date: 03/20/18 21:08:00 CDT, Duration: 30 day, Stop date: 04/19/18 21:07 :00 CDT Notes: (Same as: BD Posiflush) Start Date: 03/20/18 Stop Date: 03/21/18 Status: DiscontinuedSodium Chloride 0.9% IV 1,000 mL 1,000 mL, Rate: 125 ml/hr, Infuse over: 8 hr, Route: IV, Dosing Weight 81.818 kg , Total Volume: 1,000, Start date: 03/21/18 0:45:00 CDT, Duration: 30 day, Stop date: 04/20/18 0:44:00 CDT, 1.96, m2 Start Date: 03/21/18 Stop Date: 03/22/18 Status: Discontinuedtramadol 100 mg, 2 tab, Route: PO, Drug form: TAB, Q6H, Dosing Weight 81.818, kg, PRN Pain Score 4-6, Start date: 03/21/18 19:26:00 CDT, Duration: 30 day, Stop date: 04/20/18 19:25:00 CDT Notes: Not to exceed 400mg/day. (Same As: Ultram) Start Date: 03/21/18 Stop Date: 03/22/18 Status: Discontinuedtramadol 100 mg oral tablet, extended release 100 mg=1 tab, PO, Daily, PRN pain, # 1 tab, 0 Refill(s) Start Date: 03/22/18 Stop Date: 04/05/18 Status: Orderedtramadol 100 mg oral tablet, extended release 100 mg, 2 tab, Route: PO, Drug form: TAB, Daily, PRN Pain Score 4-6, Start date : 03/21/18 0:45:00 CDT, Duration: 30 day, Stop date: 04/20/18 0:44:00 CDT Notes: Not to exceed 400mg/day. (Same As: Ultram) Start Date: 03/21/18 Stop Date: 03/21/18 Status: Discontinuedtrazodone 100 mg, 2 tab, Route: PO, Drug form: TAB, Bedtime, Dosing Weight 81.818, kg, PRN Insomnia, Start date: 03/21/18 21:58:00 CDT, Duration: 30 day, Stop date: 21:57:00 CDT Notes: (Same As: Desyrel) Start Date: 03/21/18 Stop Date: 03/22/18 Status: DiscontinuedVitamin B Complex oral capsule 1 tab, PO, Daily, # 30 cap, 0 Refill(s) Start Date: 03/21/18 Status: OrderedZofran ODT 4 mg oral tablet, disintegrating 4 mg=1 tab, PO, Q6H, PRN Nausea & Vomiting, Dissolve tab under tongue, # 20 tab, 0 Refill(s), [email or web address] [id number] Start Date: 03/22/18 Stop Date: 03/27/18 Status: Ordered Results BLOOD BANK RESULTS Most recent to oldest [Reference Range]: 1 2 3 ABO/Rh O POS *Unknown* (03/21/18 6:40 AM) Antibody Scrn Negative (03/21/18 6:40 AM) ELECTROLYTES Most recent to oldest 1 2 3 [Reference Range]: Sodium Lvl [135-145 mEq/L] 143 mEq/L 138 mEq/L 139 mEq/L (03/22/18 3:41 AM) (03/21/18 3:50 AM) (03/20/18 9:44 PM) Potassium Lvl [3.5-5.1 3.7 mEq/L 3.6 mEq/L 3.9 mEq/L mEq/L] (03/22/18 3:41 AM) (03/21/18 3:50 AM) (03/20/18 9:44 PM) Chloride Lvl [95-109 mEq/L] 111 mEq/L 108 mEq/L 104 mEq/L *HI* (03/21/18 3:50 AM) (03/20/18 9:44 PM) (03/22/18 3:41 AM) CO2 [24-32 mEq/L] 26 mEq/L 27 mEq/L 29 mEq/L (03/22/18 3:41 AM) (03/21/18 3:50 AM) (03/20/18 9:44 PM) AGAP [10.0-20.0 mEq/L] 9.7 mEq/L 6.6 mEq/L 9.9 mEq/L *LOW* *LOW* *LOW* (03/22/18 3:41 AM) (03/21/18 3:50 AM) (03/20/18 9:44 PM) CHEM PANEL Most recent to oldest 1 2 3 [Reference Range]: Creatinine Lvl [0.50-1.40 0.60 mg/dL 0.51 mg/dL 0.64 mg/dL mg/dL] (03/22/18 3:41 AM) (03/21/18 3:50 AM) (03/20/18 9:44 PM) eGFR 118 mL/min/1.73m2 1 125 mL/min/1.73m2 2 116 mL/min/1.73m2 3 *NA* *NA* *NA* (03/22/18 3:41 AM) (03/21/18 3:50 AM) (03/20/18 9:44 PM) BUN [7-22 mg/dL] 6 mg/dL 9 mg/dL 10 mg/dL *LOW* (03/21/18 3:50 AM) (03/20/18 9:44 PM) (03/22/18 3:41 AM) B/C Ratio [6-25] 16 (03/20/18 9:44 PM) Glucose Lvl [70-99 mg/dL] 129 mg/dL 79 mg/dL 83 mg/dL *HI* (03/21/18 3:50 AM) (03/20/18 9:44 PM) (03/22/18 3:41 AM) Total Protein [6.4-8.4 7.6 g/dL g/dL] (03/20/18 9:44 PM) Albumin Lvl [3.5-5.0 g/dL] 3.4 g/dL *LOW* (03/20/18 9:44 PM) Globulin [2.7-4.2 g/dL] 4.2 g/dL (03/20/18 9:44 PM) A/G Ratio [0.7-1.6] 0.8 (03/20/18 9:44 PM) Calcium Lvl [8.5-10.5 8.1 mg/dL 8.6 mg/dL 9.2 mg/dL mg/dL] *LOW* (03/21/18 3:50 AM) (03/20/18 9:44 PM) (03/22/18 3:41 AM) ALT [0-65 unit/L] 251 unit/L *HI* (03/20/18 9:44 PM) AST [0-37 unit/L] 30 unit/L (03/20/18 9:44 PM) Alk Phos [39-136 unit/L] 177 unit/L *HI* (03/20/18 9:44 PM) Bili Total [0.2-1.3 mg/dL] 0.2 mg/dL (03/20/18 9:44 PM) Lipase Lvl [73-393 unit/L] 242 unit/L 376 unit/L (03/21/18 3:50 AM) (03/20/18 9:44 PM) Lactic Acid Lvl [0.5-2.2 0.7 mMol/L mMol/L] (03/20/18 9:44 PM) 1Result Comment: The eGFR is calculated [...] 1 2 3 Total CK [12-191 unit/L] 36 unit/L (03/20/18 9:26 PM) ENDOCRINOLOGY Most recent to oldest [Reference Range]: 1 2 3 hCG Tot <1 mIU/mL *NA* (03/21/18 3:50 AM) URINE AND STOOL Most recent to oldest [Reference Range]: 1 2 3 UA Turbidity [Clear] Clear (03/20/18 9:44 PM) UA Color Ltyellow *NA* (03/20/18 9:44 PM) UA pH [5.0-8.0] 7.0 (03/20/18 9:44 PM) UA Spec Grav [<=1.030] 1.013 (03/20/18 9:44 PM) UA Glucose [Negative mg/dL] Negative mg/dL *NA* (03/20/18 9:44 PM) UA Blood [Negative] Large *ABN* (03/20/18 9:44 PM) UA Ketones [Negative mg/dL] Negative mg/dL *NA* (03/20/18 9:44 PM) UA Protein [Negative mg/dL] Negative mg/dL (03/20/18 9:44 PM) UA Urobilinogen [0.1-1.0 mg/dL] 2.0 mg/dL *HI* (03/20/18 9:44 PM) UA Bili [Negative] Negative *NA* (03/20/18 9:44 PM) UA Leuk Est [Negative] Negative (03/20/18 9:44 PM) UA Nitrite [Negative] Negative (03/20/18 9:44 PM) UA WBC [0-5 /HPF] <1 /HPF (03/20/18 9:44 PM) UA RBC [0-2 /HPF] 5 /HPF *HI* (03/20/18 9:44 PM) UA Bacteria [None Seen /HPF] Occasional /HPF *NA* (03/20/18 9:44 PM) UA Sq Epi [Few /LPF] Occasional /LPF *NA* (03/20/18 9:44 PM) UA Hyal Cast [0-2 /LPF] 1 /LPF (03/20/18 9:44 PM) Occult Bld Stl [Negative] Positive *ABN* (03/21/18 3:22 PM) Fecal Leukocyte Rare (03/21/18 3:22 PM) HEMATOLOGY Most recent to oldest 1 2 3 [Reference Range]: WBC [3.7-10.4 K/CMM] 4.4 K/CMM 5.6 K/CMM 6.7 K/CMM (03/22/18 3:41 AM) (03/21/18 3:50 AM) (03/20/18 9:26 PM) RBC [4.20-5.40 M/CMM] 3.74 M/CMM 4.05 M/CMM 4.47 M/CMM *LOW* *LOW* (03/20/18 9:26 PM) (03/22/18 3:41 AM) (03/21/18 3:50 AM) Hgb [12.0-16.0 g/dL] 11.2 g/dL 12.1 g/dL 13.7 g/dL *LOW* (03/21/18 3:50 AM) (03/20/18 9:26 PM) (03/22/18 3:41 AM) Hct [36.0-48.0 %] 33.1 % 35.6 % 39.7 % *LOW* *LOW* (03/20/18 9:26 PM) (03/22/18 3:41 AM) (03/21/18 3:50 AM) MCV [80.0-98.0 fL] 88.6 fL 87.7 fL 88.8 fL (03/22/18 3:41 AM) (03/21/18 3:50 AM) (03/20/18 9: PM) MCH [27.0-31.0 pg] 29.9 pg 29.8 pg 30.7 pg (03/22/18 3:41 AM) (03/21/18 3:50 AM) (03/20/18: PM) MCHC [32.0-36.0 g/dL] 33.7 g/dL 34.0 g/dL 34.6 g/dL (03/22/18 3:41 AM) (03/21/18 3:50 AM) (03/20/18 9:26 PM) RDW [11.5-14.5 %] 13.1 % 13.0 % 12.7 % (03/22/18 3:41 AM) (03/21/18 3:50 AM) (03/20/18 9: PM) MPV [7.4-10.4 fL] 8.1 fL 8.2 fL 8.3 fL (03/22/18 3:41 AM) (03/21/18 3:50 AM) (03/20/18 9: PM) Platelet [133-450 K/CMM] 247 K/CMM 266 K/CMM 301 K/CMM (03/22/18 3:41 AM) (03/21/18 3:50 AM) (03/20/18 9: PM) Segs [45.0-75.0 %] 33.7 % 45.2 % 54.5 % *LOW* (03/21/18 3:50 AM) (03/20/18 9:26 PM) (03/22/18 3:41 AM) Lymphocytes [20.0-40.0 %] 46.5 % 37.8 % 30.2 % *HI* (03/21/18 3:50 AM) (03/20/18 9:26 PM) (03/22/18 3:41 AM) Monocytes [2.0-12.0 %] 9.7 % 9.0 % 7.9 % (03/22/18 3:41 AM) (03/21/18 3:50 AM) (03/20/18 9:26 PM) Eosinophils [0.0-4.0 %] 9.0 % 7.3 % 6.8 % *HI* *HI* *HI* (03/22/18 3:41 AM) (03/21/18 3:50 AM) (03/20/18 9:26 PM) Basophils [0.0-1.0 %] 1.1 % 0.7 % 0.6 % *HI* (03/21/18 3:50 AM) (03/20/18 9:26 PM) (03/22/18 3:41 AM) Segs-Bands # [1.5-8.1 K/CMM] 1.5 K/CMM 2.5 K/CMM 3.6 K/CMM (03/22/18 3:41 AM) (03/21/18 3:50 AM) (03/20/18 9:26 PM) Lymphocytes # [1.0-5.5 2.0 K/CMM 2.1 K/CMM 2.0 K/CMM K/CMM] (03/22/18 3:41 AM) (03/21/18 3:50 AM) (03/20/18 9:26 PM) Monocytes # [0.0-0.8 K/CMM] 0.4 K/CMM 0.5 K/CMM 0.5 K/CMM (03/22/18 3:41 AM) (03/21/18 3:50 AM) (03/20/18 9:26 PM) Eosinophils # [0.0-0.5 0.4 K/CMM 0.4 K/CMM 0.5 K/CMM K/CMM] (03/22/18 3:41 AM) (03/21/18 3:50 AM) (03/20/18 9:26 PM) Immunizations No data available for this [...] 03/20/18 Assessment and Plan Extracted from: Title: Discharge Summary * Author: Marcelo Enriquez MD Date: 03/22/18 Discharge Plan Discharge Summary Plan Discharge Status: improved. Discharge instructions given: to patient. Discharge disposition: discharge to home self care. Prescriptions: continue same medications, written and given to patient. Diagnosis Abdominal pain ([id number] R10.9, Working, Medical). Course Improving. Education and Follow-up Counseled: patient. Extracted from: Title: UIP Progress Note * Author: Marcelo Enriquez MD Date: 03/21/18 Impression and Plan ASSESSMENT: Abdominal Pain recent cholecystectomy and ERCP BRBPR Anxiety Asthma Gastritis PLAN: NPO excpet meds until seen by GI Occult stool PPI BID PRN Pain medications GI consult pending serial abd exams PRN antiemetics Lipase level normal DVT PPX: Ambulation Dispo: cont current mgmt with pain control Extracted from: Title: Clinical Document Author: Jarred Encinas MD Date: 03/21/18 full H&P dictated, #[id number] date/time: 03/20/2018 23:40
--- OUTSIDE RECORDS SUMMARY | 2018-05-04 10:31 | XMS REPORT | Summary of Care ---
:1980 Author Organization [facility] Address [address] [place] [address]- Encounter HQ Mauricio_eneida(FIN) [id number] Date(s): 12/22/17 - 12/22/[address] [phone] Encounter Diagnosis Generalized abdominal pain (Final) - 12/26/17 Personal history of other diseases of the digestive system (Final) - Personal history of urinary calculi (Final) - Other specified postprocedural states (Final) - Anxiety disorder, unspecified (Final) - Abdominal pain in female (Discharge Diagnosis) - 12/22/17 Discharge Disposition: Home or Self Care Attending Physician: Rajesh Berry MD Vital Signs Most recent to oldest 1 2 3 [Reference Range]: Height 165.1 cm (12/22/17 10:56 AM) Temperature Oral [96.4-99.1 98.2 DegF 99.0 DegF DegF] (12/22/17 12:05 PM) (12/22/17 10:56 AM) Blood Pressure [90-140/60-90 144/82 mmHg 143/95 mmHg 137/99 mmHg mmHg] *HI* *HI* (12/22/17 1:40 PM) (12/22/17 4:33 PM) (12/22/17 3:00 PM) Respiratory Rate [14-20 16 BRMIN 18 BRMIN 20 BRMIN BRMIN] (12/22/17 4:33 PM) (12/22/17 3:00 PM) (12/22/17 1:40 PM) Peripheral Pulse Rate [60-100 88 bpm 96 bpm 116 bpm bpm] (12/22/17 4:33 PM) (12/22/17 3:00 PM) *HI* (12/22/17 1:40 PM) Weight 79.545 kg (12/22/17 10:56 AM) Body Mass Index 29.18 m2 (12/22/17 10:56 AM) Problem List Condition Effective Dates Status Health Status Informant Abdominal distention(Confirmed) Active Abdominal pain(Confirmed) Active Erosive gastritis(Confirmed) Active Acute pyelonephritis(Confirmed) Resolved Appendicitis(Confirmed) Resolved Asthmatic bronchitis(Confirmed) Active Cholelithiasis(Confirmed) Active delivery(Confirmed) Resolved Chronic anxiety(Confirmed) Active Crohns disease(Confirmed) Resolved Diarrhea(Confirmed) Active Hemorrhoids(Confirmed) Resolved History of Active nephrolithiasis(Confirmed) Hypertensive disorder(Confirmed) Active MRSA(Confirmed)1, 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 Allergies, Adverse Reactions, Alerts Substance Reaction Severity Status codeine Codeine Active Codeine Codeine Medications Bentyl 10 mg oral capsule 10 mg=1 cap, PO, QID-Before Meals, # 40 cap, 0 Refill(s) Start Date: 12/22/17 Stop Date: 12/24/17 Status: DiscontinuedfentaNYL 50 microgram, Route: IVP, ONCE, Dosing Weight 79.545, kg, Priority: STAT, Start date: 12/22/17 12:10:00 DRIVER/REFUSE COLLECTOR, Stop date: 12/22/17 12:10:00 DRIVER/REFUSE COLLECTOR Start Date: 12/22/17 Stop Date: 12/22/17 Status: Completedmorphine Sulfate 4 mg, 1 mL, Route: IVP, Drug form: SOLN, ONCE, Dosing Weight 79.545, kg, Priority: STAT, Start date:12/22/17 14:00:00 DRIVER/REFUSE COLLECTOR, Stop date: 12/22/17 14:00:00 DRIVER/REFUSE COLLECTOR Notes: (Same as:MORPhine Sulfate) Start Date: 12/22/17 Stop Date: 12/22/17 Status: CompletedNS (Bolus) IV 1,000 mL, 1,000 ml/hr, Infuse Over: 1 hr, Route: IV, ONCE, Priority: STAT, Dosing Weight 79.545 kg, Start date: 12/22/17 14:55:00 DRIVER/REFUSE COLLECTOR, Stop date: 12/22/17 14:55:00 DRIVER/REFUSE COLLECTOR Start Date: 12/22/17 Stop Date: 12/22/17 Status: Completedondansetron 4 mg, 2 mL, Route: IVP, Drug form: INJ, ONCE, Dosing Weight 79.545, kg, Priority : STAT, Start date: 12/22/17 11:01:00 DRIVER/REFUSE COLLECTOR, Stop date: 12/22/17 11:01:00 DRIVER/REFUSE COLLECTOR Notes: (Same as: Zofran) MEDICATION WASTE Product Size: 4 mgProduct Wasted: ___ mg Start Date: 12/22/17 Stop Date: 12/22/17 Status: CompletedRocephin 1 gm, Route: IVPB, Drug form: PDR/INJ, ONCE, Dosing Weight 79.545, kg, Priority : STAT, Start date: 12/22/17 14:55:00 DRIVER/REFUSE COLLECTOR, Stop date: 12/22/17 14:55:00 DRIVER/REFUSE COLLECTOR, ABX Indication: Urinary Tract Infection Start Date: 12/22/17 Stop Date: 12/22/17 Status: CompletedSodium Chloride 0.9% (Bolus) IV 1,000 mL, 1000 ml/hr, Infuse Over: 1 hr, Route: IV, 1,000, Drug form: INJ, ONCE , Priority: STAT, Dosing Weight 79.545 kg, Start date: 12/22/17 11:01:00 DRIVER/REFUSE COLLECTOR, Stop date: 12/22/17 11:01:00 DRIVER/REFUSE COLLECTOR Start Date: 12/22/17 Stop Date: 12/22/17 Status: CompletedUltram 50 mg oral tablet 50 mg=1 tab, PO, Q6H, PRN pain, X 3 day, # 12 tab, 0 Refill(s) Start Date: 12/22/17 Stop Date: 12/25/17 Status: Completed Results ELECTROLYTES Most recent to oldest [Reference Range]: 1 Sodium Lvl [135-145 mEq/L] 137 mEq/L (12/22/17 11:57 AM) Potassium Lvl [3.5-5.1 mEq/L] 3.4 mEq/L *LOW* (12/22/17 11:57 AM) Chloride Lvl [95-109 mEq/L] 104 mEq/L (12/22/17 11:57 AM) CO2 [24-32 mEq/L] 26 mEq/L (12/22/17 11:57 AM) AGAP [10.0-20.0 mEq/L] 10.4 mEq/L (12/22/17 11:57 AM) CHEM PANEL Most recent to oldest [Reference Range]: 1 Creatinine Lvl [0.50-1.40 mg/dL] 0.71 mg/dL (12/22/17 11:57 AM) eGFR 110 mL/min/1.73m2 1 *NA* (12/22/17:57 AM) BUN [7-22 mg/dL] 9 mg/dL (12/22/17 11:57 AM) B/C Ratio [6-25] 13 (12/22/17 11:57 AM) Glucose Lvl [70-99 mg/dL] 89 mg/dL (12/22/17 11:57 AM) Total Protein [6.4-8.4 g/dL] 8.3 g/dL (12/22/17 11:57 AM) Albumin Lvl [3.5-5.0 g/dL] 4.2 g/dL (12/22/17 11:57 AM) Globulin [2.7-4.2 g/dL] 4.1 g/dL (12/22/17 11:57 AM) A/G Ratio [0.7-1.6] 1.0 (12/22/17:57 AM) Calcium Lvl [8.5-10.5 mg/dL] 8.8 mg/dL (12/22/17 11:57 AM) ALT [0-65 unit/L] 17 unit/L (12/22/17 11:57 AM) AST [0-37 unit/L] 12 unit/L (12/22/17 11:57 AM) Alk Phos [39-136 unit/L] 62 unit/L (12/22/17 11:57 AM) Bili Total [0.2-1.3 mg/dL] 0.6 mg/dL (12/22/17 11:57 AM) Lactic Acid Lvl [0.5-2.2 mMol/L] 0.9 mMol/L (12/22/17 11:57 AM) 1Result Comment: The eGFR is calculated [...] Most recent to oldest [Reference Range]: 1 Total CK [12-191 unit/L] 44 unit/L (12/22/17 11:57 AM) ENDOCRINOLOGY Most recent to oldest [Reference Range]: 1 S Preg [Negative] Negative *NA* (12/22/17 11:57 AM) URINE AND STOOL Most recent to oldest [Reference Range]: 1 UA Turbidity [Clear] Marked *ABN* (12/22/17 11:57 AM) UA Color [Yellow] Lizzie *ABN* (12/22/17 11:57 AM) UA pH [5.0-8.0] 5.0 (12/22/17 11:57 AM) UA Spec Grav [<=1.030] 1.021 (12/22/17 11:57 AM) UA Glucose [Negative mg/dL] Negative mg/dL *NA* (12/22/17 11:57 AM) UA Blood [Negative] Negative (12/22/17 11:57 AM) UA Ketones [Negative mg/dL] 20 mg/dL *ABN* (12/22/17 11:57 AM) UA Protein [Negative mg/dL] 30 mg/dL *ABN* (12/22/17 11:57 AM) UA Urobilinogen [0.1-1.0 mg/dL] <=1.0 mg/dL *NA* (12/22/17 11:57 AM) UA Bili [Negative] Negative *NA* (12/22/17 11:57 AM) UA Leuk Est [Negative] Moderate *ABN* (12/22/17 11:57 AM) UA Nitrite [Negative] Negative (12/22/17 11:57 AM) UA WBC [0-5 /HPF] 7 /HPF *HI* (12/22/17 11:57 AM) UA RBC [0-2 /HPF] 1 /HPF (12/22/17 11:57 AM) UA Bacteria [None Seen /HPF] Moderate /HPF *ABN* (12/22/17 11:57 AM) UA Sq Epi [Few /LPF] Many /LPF *ABN* (12/22/17 11:57 AM) UA Mucus [None Seen /LPF] Many /LPF *ABN* (12/22/17 11:57 AM) HEMATOLOGY Most recent to oldest [Reference Range]: 1 WBC [3.7-10.4 K/CMM] 8.5 K/CMM (12/22/17 11:57 AM) RBC [4.20-5.40 M/CMM] 4.89 M/CMM (12/22/17 11:57 AM) Hgb [12.0-16.0 g/dL] 14.8 g/dL (12/22/17 11:57 AM) Hct [36.0-48.0 %] 43.1 % (12/22/17 11:57 AM) MCV [80.0-98.0 fL] 88.2 fL (12/22/17 11:57 AM) MCH [27.0-31.0 pg] 30.2 pg (12/22/17 11:57 AM) MCHC [32.0-36.0 g/dL] 34.3 g/dL (12/22/17 11:57 AM) RDW [11.5-14.5 %] 12.6 % (12/22/17 11:57 AM) MPV [7.4-10.4 fL] 8.1 fL (12/22/17 11:57 AM) Platelet [133-450 K/CMM] 306 K/CMM (12/22/17 11:57 AM) Segs [45.0-75.0 %] 62.3 % (12/22/17 11:57 AM) Lymphocytes [20.0-40.0 %] 28.2 % (12/22/17 11:57 AM) Monocytes [2.0-12.0 %] 7.1 % (12/22/17 11:57 AM) Eosinophils [0.0-4.0 %] 1.6 % (12/22/17 11:57 AM) Basophils [0.0-1.0 %] 0.8 % (12/22/17 11:57 AM) Segs-Bands # [1.5-8.1 K/CMM] 5.3 K/CMM (12/22/17 11:57 AM) Lymphocytes # [1.0-5.5 K/CMM] 2.4 K/CMM (12/22/17 11:57 AM) Monocytes # [0.0-0.8 K/CMM] 0.6 K/CMM (12/22/17 11:57 AM) Eosinophils # [0.0-0.5 K/CMM] 0.1 K/CMM (12/22/17 11:57 AM) Basophils # [0.0-0.2 K/CMM] 0.1 K/CMM (12/22/17 11:57 AM) VIRAL - SEROLOGY Most recent to oldest [Reference Range]: 1 Influ A [Negative] Negative (12/22/17 11:57 AM) Influ B [Negative] Negative (12/22/17 11:57 AM) Immunizations No data available for this [...]
--- OUTSIDE RECORDS SUMMARY | 2018-05-04 10:31 | XMS REPORT | Summary of Care ---
:[address] [facility] Address [address] [place], [place] [address]- Encounter HQ Radha(TARA) [id number] Date(s): 03/31/16 - 03/31/[address] [facility] [address] [place] [address]- Discharge Diagnosis: Acute postoperative pain Discharge Diagnosis: H/O hemorrhoidectomy Discharge Disposition: Home Attending Physician: Jhonny Givens MD Vital Signs Most recent to oldest 1 2 3 [Reference Range]: Height 165.1 cm (03/31/16 3:14 PM) Temperature Oral [96.4-99.1 97.9 DegF 98.6 DegF DegF] (03/31/16 5:30 PM) (03/31/16 3:14 PM) Blood Pressure [90-140/60-90 133/88 mmHg 154/104 mmHg 181/117 mmHg mmHg] (03/31/16 5:30 PM) *HI* *HI* (03/31/16 3:51 PM) (03/31/16 3:14 PM) Respiratory Rate [14-20 BRMIN] 18 BRMIN 20 BRMIN (03/31/16 5:30 PM) (03/31/16 3:14 PM) Peripheral Pulse Rate [60-100 72 bpm 89 bpm bpm] (03/31/16 5:30 PM) (03/31/16 3:14 PM) Weight 81.818 kg (03/31/16 3:14 PM) Body Mass Index 30.02 m2 (03/31/16 3:14 PM) Problem List Condition Effective Dates Status Health Status Informant Appendicitis(Confirmed) Resolved Hemorrhoids(Confirmed) Active Tonsillitis(Confirmed) Resolved Allergies, Adverse Reactions, Alerts Substance Reaction Severity Status NKDA Active Medications clindamycin 900 mg, Route: IVPB, ONCE, Dosing Weight 81.818, kg, Priority: STAT, Start date : 03/31/16 17:41:00 CDT, Stop date: 03/31/16 17:41:00 CDT Start Date: 03/31/16 Stop Date: 03/31/16 Status: Completedclindamycin 300 mg oral capsule 300 mg=1 cap, PO, Q6H, X 10 day, # 40 cap, 0 Refill(s), Pharmacy: [facility] [id number] Start Date: 03/31/16 Stop Date: 04/10/16 Status: Orderedmorphine Sulfate 4 mg, Route: IVP, Drug form: INJ, ONCE, Dosing Weight 81.818, kg, Priority: STAT , Start date: 03/31/16 16:11:00 CDT, Stop date: 03/31/16 16:11:00 CDT Start Date: 03/31/16 Stop Date: 03/31/16 Status: Completedmorphine Sulfate 4 mg, Route: IVP, Drug form: INJ, ONCE, Dosing Weight 81.818, kg, Priority: STAT , Start date: 03/31/16 17:41:00 CDT, Stop date: 03/31/16 17:41:00 CDT Start Date: 03/31/16 Stop Date: 03/31/16 Status: CompletedSodium Chloride 0.9% (Bolus) IV 1,000 mL, 1,000 ml/hr, Infuse Over: 1 hr, Route: IV, 1,000, Drug form: INJ, ONCE , Priority: STAT, Dosing Weight 81.818 kg, Start date: 03/31/16 16:07:00 CDT, Duration: 1 doses or times, Stop date: 03/31/16 16:07:00 CDT Start Date: 03/31/16 Stop Date: 03/31/16 Status: CompletedZofran 4 mg, Route: IVP, Drug form: INJ, ONCE, Dosing Weight 81.818, kg, Priority: STAT , Start date: 03/31/16 16:10:00 CDT, Stop date: 03/31/16 16:10:00 CDT Start Date: 03/31/16 Stop Date: 5/22/16 Status: Completed Results ELECTROLYTES Most recent to oldest [Reference Range]: 1 Sodium Lvl [135-145 mEq/L] 141 mEq/L (03/31/16 4:09 PM) Potassium Lvl [3.5-5.1 mEq/L] 4.0 mEq/L (03/31/16 4:09 PM) Chloride Lvl [95-109 mEq/L] 107 mEq/L (03/31/16 4:09 PM) CO2 [24-32 mEq/L] 28 mEq/L (03/31/16 4:09 PM) AGAP [10.0-20.0 mEq/L] 10.0 mEq/L (03/31/16 4:09 PM) CHEM PANEL Most recent to oldest [Reference Range]: 1 Creatinine Lvl [0.50-1.40 mg/dL] 0.66 mg/dL (03/31/16 4:09 PM) eGFR 116 mL/min/1.73m2 1 *NA* (03/31/16 4:09 PM) BUN [7-22 mg/dL] 10 mg/dL (03/31/16 4:09 PM) Glucose Lvl [70-99 mg/dL] 87 mg/dL (03/31/16 4:09 PM) Calcium Lvl [8.5-10.5 mg/dL] 8.4 mg/dL *LOW* (03/31/16 4:09 PM) 1Result Comment: The eGFR is calculated [...] Range]: 1 S Preg [Negative] Negative *NA* (03/31/16 4:09 PM) HEMATOLOGY Most recent to oldest [Reference Range]: 1 WBC [3.7-10.4 K/CMM] 10.9 K/CMM *HI* (03/31/16 4:09 PM) RBC [4.20-5.40 M/CMM] 4.31 M/CMM (03/31/16 4:09 PM) Hgb [12.0-16.0 g/dL] 12.2 g/dL (03/31/16 4:09 PM) Hct [36.0-48.0 %] 37.1 % (03/31/16 4:09 PM) MCV [80.0-98.0 fL] 86.0 fL (03/31/16 4:09 PM) MCH [27.0-31.0 pg] 28.3 pg (03/31/16 4:09 PM) MCHC [32.0-36.0 g/dL] 32.9 g/dL (03/31/16 4:09 PM) RDW [11.5-14.5 %] 12.8 % (03/31/16 4:09 PM) Platelet [133-450 K/CMM] 307 K/CMM (03/31/16 4:09 PM) MPV [7.4-10.4 fL] 8.4 fL (03/31/16 4:09 PM) Segs [45.0-75.0 %] 74.8 % (03/31/16 4:09 PM) Lymphocytes [20.0-40.0 %] 15.9 % *LOW* (03/31/16 4:09 PM) Monocytes [2.0-12.0 %] 6.5 % (03/31/16 4:09 PM) Eosinophils [0.0-4.0 %] 2.4 % (03/31/16 4:09 PM) Basophils [0.0-1.0 %] 0.4 % (03/31/16 4:09 PM) Segs-Bands # [1.5-8.1 K/CMM] 8.1 K/CMM (03/31/16 4:09 PM) Lymphocytes # [1.0-5.5 K/CMM] 1.7 K/CMM (03/31/16 4:09 PM) Monocytes # [0.0-0.8 K/CMM] 0.7 K/CMM (03/31/16 4:09 PM) Eosinophils # [0.0-0.5 K/CMM] 0.3 K/CMM (03/31/16 4:09 PM) PT [12.0-14.7 seconds] 12.5 seconds (03/31/16 4:09 PM) INR [0.85-1.17] 0.90 (03/31/16 4:09 PM) PTT [22.9-35.8 seconds] 35.4 seconds (03/31/16 4:09 PM) Immunizations No data available for this section Procedures Procedure Date Related Diagnosis Body Site Tonsillectomy 2006 Breast augmentation 2005 ACL - Repair of anterior cruciate ligament 1997 Appendectomy 1987 Abdominoplasty section1 1x 4 Social History Social History Type Response Substance Abuse Use: None. Alcohol Current, Type Beer. Frequency: 1-2 times per week. Smoking Status Current some day smoker; Type: Cigarettes; Exposure to Tobacco Smoke Self; Cigarette Smoking Last 365 Days Yes; Reg Smoking Cessation Counseling No Assessment and Plan No data available for this section
--- OUTSIDE RECORDS SUMMARY | 2018-05-04 10:32 | XMS REPORT | Summary of Care ---
:1980 Author Organization [facility] Address [address] [place], [place] [address]- Encounter HQ Mauricio_eneida(TARA) [id number] Date(s): 05/23/16 - 05/24/16 [facility] [address] [place] [address]- Discharge Diagnosis: Rectal pain Discharge Diagnosis: Bleeding external hemorrhoids Discharge Disposition: Home Attending Physician: Jourdan Rob MD Vital Signs Most recent to oldest 1 2 3 [Reference Range]: Height 165.1 cm (05/23/16 7:27 PM) Temperature Oral [96.4-99.1 98.1 DegF 98.6 DegF 98.4 DegF DegF] (05/24/16 12:40 AM) (05/23/16 8:30 PM) (05/23/16 7:27 PM) Blood Pressure [90-140/60-90 136/96 mmHg 148/95 mmHg 154/115 mmHg mmHg] (05/24/16 12:40 AM) *HI* *HI* (05/23/16 8:30 PM) (05/23/16 7:27 PM) Respiratory Rate [14-20 BRMIN] 18 BRMIN 14 BRMIN 20 BRMIN (05/24/16 12:40 AM) (05/23/16 8:30 PM) (05/23/16 7:27 PM) Peripheral Pulse Rate [60-100 103 bpm bpm] *HI* (05/23/16 7:27 PM) Weight 75.909 kg (05/23/16 7:27 PM) Body Mass Index 27.85 m2 (05/23/16 7:27 PM) Problem List Condition Effective Dates Status Health Status Informant Appendicitis(Confirmed) Resolved delivery(Confirmed) Resolved Hemorrhoids(Confirmed) Active Tonsillitis(Confirmed) Resolved Allergies, Adverse Reactions, Alerts Substance Reaction Severity Status NKDA Active Medications Dilaudid 1 mg, Route: IVP, ONCE, Dosing Weight 75.909, kg, Priority: STAT, Start date: 22:30:00 CDT,Stop date: 05/23/16 22:30:00 CDT Start Date: 05/23/16 Stop Date: 05/23/16 Status: Completedmorphine Sulfate 4 mg, 2 mL, Route: IVP, Drug form: INJ, ONCE, Dosing Weight 75.909, kg, Priority : STAT, Start date: 05/23/16 19:29:00 CDT, Stop date: 05/23/16 19:29:00 CDT Notes: (Same as:MORPhine Sulfate) Start Date: 05/23/16 Stop Date: 05/23/16 Status: CompletedNorco 10/325 oral tablet 2 tab, Route: PO, Drug Form: TAB, Dosing Weight 75.909, kg, ONCE, STAT, Start date: 05/24/16 0:25:00CDT, Stop date: 05/24/16 0:25:00 CDT Start Date: 05/24/16 Stop Date: 05/24/16 Status: CompletedNorco 10/325 oral tablet 2 tab, Route: PO, Drug Form: TAB, Dosing Weight 75.909, kg, ONCE, STAT, Start date: 05/24/16 0:24:00CDT, Stop date: 05/24/16 0:24:00 CDT Start Date: 05/24/16 Stop Date: 05/24/16 Status: CompletedNS (Bolus) IV 1,000 mL, 1,000 ml/hr, Infuse Over: 1 hr, Route: IV, 1,000, Drug form: INJ, ONCE , Priority: STAT, Dosing Weight 75.909 kg, Start date: 05/23/16 19:28:00 CDT, Duration: 1 doses or times, Stop date: 05/23/16 19:28:00 CDT Start Date: 05/23/16 Stop Date: 05/23/16 Status: Completedondansetron 4 mg, 2 mL, Route: IVP, Drug form: INJ, ONCE, Dosing Weight 75.909, kg, Priority : STAT, Start date: 05/23/16 19:29:00 CDT, Stop date: 05/23/16 19:29:00 CDT Notes: (Same as: Zofran) MEDICATION WASTE Product Size: 4 mgProduct Wasted: ___ mg Start Date: 05/23/16 Stop Date: 05/23/16 Status: CompletedSaline Flush 0.9% 10 mL, Route: IVP, Drug Form: INJ, Dosing Weight 75.909, kg, PRN, PRN Line Flush , Start date: 05/23/16 19:29:00 CDT, Duration: 30 day, Stop date: 06/22/16 19:28 :00 CDT Notes: (Same as: BD Posiflush) Start Date: 05/23/16 Stop Date: 05/24/16 Status: Discontinued Results BLOOD BANK RESULTS Most recent to oldest [Reference Range]: 1 ABO/Rh O POS *Unknown* (05/23/16 9:20 PM) Antibody Scrn Negative (05/23/16 9:20 PM) ELECTROLYTES Most recent to oldest [Reference Range]: 1 Sodium Lvl [135-145 mEq/L] 138 mEq/L (05/23/16 9:20 PM) Potassium Lvl [3.5-5.1 mEq/L] 5.2 mEq/L *HI* (05/23/16 9:20 PM) Chloride Lvl [95-109 mEq/L] 109 mEq/L (05/23/16 9:20 PM) CO2 [24-32 mEq/L] 25 mEq/L (05/23/16 9:20 PM) AGAP [10.0-20.0 mEq/L] 9.2 mEq/L *LOW* (05/23/16 9:20 PM) CHEM PANEL Most recent to oldest [Reference Range]: 1 Creatinine Lvl [0.50-1.40 mg/dL] 0.67 mg/dL (05/23/16 9:20 PM) eGFR 116 mL/min/1.73m2 1 *NA* (05/23/16 9:20 PM) BUN [7-22 mg/dL] 11 mg/dL (05/23/16 9:20 PM) B/C Ratio [6-25] 16 (05/23/16 9:20 PM) Glucose Lvl [70-99 mg/dL] 87 mg/dL (05/23/16 9:20 PM) Total Protein [6.4-8.4 g/dL] 7.8 g/dL (05/23/16 9:20 PM) Albumin Lvl [3.5-5.0 g/dL] 4.0 g/dL (05/23/16 9:20 PM) Globulin [2.0-4.0 g/dL] 3.8 g/dL (05/23/16 9:20 PM) A/G Ratio [0.7-1.6] 1.1 (05/23/16 9:20 PM) Calcium Lvl [8.5-10.5 mg/dL] 8.4 mg/dL *LOW* (05/23/16 9:20 PM) ALT [0-65 unit/L] 18 unit/L (05/23/16 9:20 PM) AST [0-37 unit/L] 26 unit/L (05/23/16 9:20 PM) Alk Phos [39-136 unit/L] 53 unit/L (05/23/16 9:20 PM) Bili Total [0.2-1.3 mg/dL] 0.3 mg/dL (05/23/16 9:20 PM) 1Result Comment: The eGFR is calculated [...] Range]: 1 S Preg [Negative] Negative *NA* (05/23/16 9:20 PM) HEMATOLOGY Most recent to oldest [Reference Range]: 1 WBC [3.7-10.4 K/CMM] 6.6 K/CMM (05/23/16 9:20 PM) RBC [4.20-5.40 M/CMM] 4.43 M/CMM (05/23/16 9:20 PM) Hgb [12.0-16.0 g/dL] 12.3 g/dL (05/23/16 9:20 PM) Hct [36.0-48.0 %] 38.2 % (05/23/16 9:20 PM) MCV [80.0-98.0 fL] 86.1 fL (05/23/16 9:20 PM) MCH [27.0-31.0 pg] 27.8 pg (05/23/16 9:20 PM) MCHC [32.0-36.0 g/dL] 32.3 g/dL (05/23/16 9:20 PM) RDW [11.5-14.5 %] 14.7 % *HI* (05/23/16:20 PM) Platelet [133-450 K/CMM] 268 K/CMM (05/23/16 9:20 PM) MPV [7.4-10.4 fL] 9.0 fL (05/23/16 9:20 PM) Segs [45.0-75.0 %] 54.4 % (05/23/16 9:20 PM) Lymphocytes [20.0-40.0 %] 32.4 % (05/23/16 9:20 PM) Monocytes [2.0-12.0 %] 8.1 % (05/23/16 9:20 PM) Eosinophils [0.0-4.0 %] 4.3 % *HI* (05/23/16 9:20 PM) Basophils [0.0-1.0 %] 0.8 % (05/23/16 9:20 PM) Segs-Bands # [1.5-8.1 K/CMM] 3.6 K/CMM (05/23/16 9:20 PM) Lymphocytes # [1.0-5.5 K/CMM] 2.1 K/CMM (05/23/16 9:20 PM) Monocytes # [0.0-0.8 K/CMM] 0.5 K/CMM (05/23/16 9:20 PM) Eosinophils # [0.0-0.5 K/CMM] 0.3 K/CMM (05/23/16 9:20 PM) Basophils # [0.0-0.2 K/CMM] 0.1 K/CMM (05/23/16 9:20 PM) PT [12.0-14.7 seconds] 13.0 seconds (05/23/16 9:20 PM) INR [0.85-1.17] 0.95 (05/23/16 9:20 PM) PTT [22.9-35.8 seconds] 31.3 seconds (05/23/16 9:20 PM) Immunizations No data available for this section Procedures Procedure Date Related Diagnosis Body Site Operation1 03/27/16 Tonsillectomy 2006 Breast augmentation 2005 ACL - Repair of anterior cruciate ligament 1997 Appendectomy 1986 Abdominoplasty section2 1Examination under anesthesia, fissurectomy with [...] Frequency: 1-2 times per week. Smoking Status Former smoker; Type: Cigarettes; Exposure to Tobacco Smoke Self ; Other Tobacco Frequency 1cig/day. Has not had anything to smoke for 2 months.; Cigarette Smoking Last 365 Days Yes; Reg Smoking Cessation Counseling No Assessment and Plan No data available for this section
--- OUTSIDE RECORDS SUMMARY | 2018-05-04 10:32 | XMS REPORT | Summary of Care ---
:1980 Author Organization [facility] Address [address] [place], [place] [address]- Encounter HQ Radha(TARA) [phone] Date(s): 06/13/16 - 06/13/16 [facility] [address] [place] [address]- Discharge Disposition: Home or Self Care Attending Physician: Alpesh Matthews MD Vital Signs Most recent to oldest [Reference Range]: 1 2 Height 165.1 cm (06/13/16 5:24 PM) Temperature Oral [96.4-99.1 DegF] 98.2 DegF 98.8 DegF (06/13/16 6:52 PM) (06/13/16 5:24 PM) Blood Pressure [90-140/60-90 mmHg] 136/81 mmHg 171/124 mmHg (06/13/16 6:52 PM) *HI* (06/13/16 5:24 PM) Respiratory Rate [14-20 BRMIN] 18 BRMIN 18 BRMIN (06/13/16 6:52 PM) (06/13/16 5:24 PM) Peripheral Pulse Rate [60-100 bpm] 101 bpm 121 bpm *HI* *HI* (06/13/16 6:52 PM) (06/13/16 5:24 PM) Weight 77.273 kg (06/13/16 5:24 PM) Body Mass Index 28.35 m2 (06/13/16 5:24 PM) Problem List Condition Effective Dates Status Health Status Informant Appendicitis(Confirmed) Resolved delivery(Confirmed) Resolved Hemorrhoids(Confirmed) Active Tonsillitis(Confirmed) Resolved Allergies, Adverse Reactions, Alerts Substance Reaction Severity Status NKDA Active Medications Bactrim DS 800 mg- 160 mg oral tablet 1 tab, PO, BID, X 10 day, # 20 tab, 0 Refill(s), Pharmacy: [facility] [id number] Start Date: 06/13/16 Stop Date: 06/23/16 Status: Orderedclindamycin 900 mg, Route: IVPB, ONCE, Dosing Weight 77.273, kg, Priority: STAT, Start date : 06/13/16 17:27:00 CDT, Stop date: 06/13/16 17:27:00 CDT Start Date: 06/13/16 Stop Date: 06/13/16 Status: CompletedketOROLAC 30 mg/mL injectable solution 30 mg, Route: IVP, Drug form: INJ, ONCE, Dosing Weight 77.273, kg, Priority: STAT, Start date: 06/13/16 18:49:00 CDT, Stop date: 06/13/16 18:49:00 CDT Start Date: 06/13/16 Stop Date: 06/13/16 Status: CompletedNorco 5/325 oral tablet 1 tab, Route: PO, Drug Form: TAB, Dosing Weight 77.273, kg, ONCE, STAT, Start date: 06/13/16 17:27:00 CDT, Stop date: 06/13/16 17:27:00 CDT Start Date: 06/13/16 Stop Date: 06/13/16 Status: CompletedSodium Chloride 0.9% (Bolus) IV 1,000 mL, 1,000 ml/hr, Infuse Over: 1 Hour, Route: IV, ONCE, Priority: STAT, Dosing Weight 77.273 kg, Start date: 06/13/16 18:04:00 CDT, Duration: 1 doses or times, Stop date: 06/13/16 18:04:00 CDT Start Date: 06/13/16 Stop Date: 06/13/16 Status: CompletedTylenol with Codeine #3 oral tablet 1 tab, PO, Q6H, PRN Pain, X 5 day, # 20 tab, 0 Refill(s) Start Date: 06/13/16 Stop Date: 06/18/16 Status: Ordered Results ELECTROLYTES Most recent to oldest [Reference Range]: 1 Sodium Lvl [135-145 mEq/L] 141 mEq/L (06/13/16 6:03 PM) Potassium Lvl [3.5-5.1 mEq/L] 3.3 mEq/L *LOW* (06/13/16 6:03 PM) Chloride Lvl [95-109 mEq/L] 108 mEq/L (06/13/16 6:03 PM) CO2 [24-32 mEq/L] 27 mEq/L (06/13/16 6:03 PM) AGAP [10.0-20.0 mEq/L] 9.3 mEq/L *LOW* (06/13/16 6:03 PM) CHEM PANEL Most recent to oldest [Reference Range]: 1 Creatinine Lvl [0.50-1.40 mg/dL] 0.72 mg/dL (06/13/16 6:03 PM) eGFR 111 mL/min/1.73m2 1 *NA* (06/13/16 6:03 PM) BUN [7-22 mg/dL] 15 mg/dL (06/13/16 6:03 PM) Glucose Lvl [70-99 mg/dL] 73 mg/dL (06/13/16 6:03 PM) Calcium Lvl [8.5-10.5 mg/dL] 8.4 mg/dL *LOW* (06/13/16 6:03 PM) 1Result Comment: The eGFR is calculated [...] eGFR should be multiplied by the estimated BMI.HEMATOLOGY Most recent to oldest [Reference Range]: 1 WBC [3.7-10.4 K/CMM] 7.0 K/CMM (06/13/16 6:03 PM) RBC [4.20-5.40 M/CMM] 4.38 M/CMM (06/13/16 6:03 PM) Hgb [12.0-16.0 g/dL] 11.9 g/dL *LOW* (06/13/16 6:03 PM) Hct [36.0-48.0 %] 36.0 % (06/13/16 6:03 PM) MCV [80.0-98.0 fL] 82.2 fL (06/13/16 6:03 PM) MCH [27.0-31.0 pg] 27.2 pg (06/13/16 6:03 PM) MCHC [32.0-36.0 g/dL] 33.1 g/dL (06/13/16 6:03 PM) RDW [11.5-14.5 %] 14.3 % (06/13/16 6:03 PM) Platelet [133-450 K/CMM] 324 K/CMM (06/13/16 6:03 PM) MPV [7.4-10.4 fL] 8.3 fL (06/13/16 6:03 PM) Segs [45.0-75.0 %] 52.5 % (06/13/16 6:03 PM) Lymphocytes [20.0-40.0 %] 35.1 % (06/13/16 6:03 PM) Monocytes [2.0-12.0 %] 9.3 % (06/13/16 6:03 PM) Eosinophils [0.0-4.0 %] 2.6 % (06/13/16 6:03 PM) Basophils [0.0-1.0 %] 0.5 % (06/13/16 6:03 PM) Segs-Bands # [1.5-8.1 K/CMM] 3.7 K/CMM (06/13/16 6:03 PM) Lymphocytes # [1.0-5.5 K/CMM] 2.5 K/CMM (06/13/16 6:03 PM) Monocytes # [0.0-0.8 K/CMM] 0.7 K/CMM (06/13/16 6:03 PM) Eosinophils # [0.0-0.5 K/CMM] 0.2 K/CMM (06/13/16 6:03 PM) Immunizations No data available for this [...]
--- OUTSIDE RECORDS SUMMARY | 2018-05-04 10:32 | XMS REPORT | Summary of Care ---
:1980 Author Organization [facility] Address [address] [place], [place] [address]- Encounter HQ Mauricio_eneida(FIN) [id number] Date(s): 11/21/16 - 11/21/16 [facility] [address] [place] [address]- [phone] Discharge Diagnosis: Acute pain of right knee Discharge Disposition: Home or Self Care Attending Physician: Hoang Zimmer DO Vital Signs Most recent to oldest [Reference Range]: 1 2 Height 165.1 cm 165.1 cm (11/21/16 9:52 PM) (11/21/16 7:48 PM) Temperature Oral [96.4-99.1 DegF] 98.2 DegF 98.4 DegF (11/21/16 9:59 PM) (11/21/16 7:48 PM) Blood Pressure [90-140/60-90 mmHg] 146/80 mmHg 158/117 mmHg *HI* *HI* (11/21/16 9:59 PM) (11/21/16 7:48 PM) Respiratory Rate [14-20 BRMIN] 18 BRMIN 20 BRMIN (11/21/16 9:59 PM) (11/21/16 7:48 PM) Peripheral Pulse Rate [60-100 bpm] 89 bpm 116 bpm (11/21/16 9:59 PM) *HI* (11/21/16 7:48 PM) Weight 81.818 kg 81.818 kg (11/21/16 9:52 PM) (11/21/16 7:48 PM) Body Mass Index 30.02 m2 30.02 m2 (11/21/16 9:52 PM) (11/21/16 7:48 PM) Problem List Condition Effective Dates Status Health Status Informant Appendicitis(Confirmed) Resolved delivery(Confirmed) Resolved Hemorrhoids(Confirmed) Active Tonsillitis(Confirmed) Resolved Allergies, Adverse Reactions, Alerts Substance Reaction Severity Status codeine Codeine Active Codeine Codeine Medications Crutches 1 ea, MISC, Daily, # 1 Pair, 0 Refill(s) Start Date: 11/21/16 Status: OrderedNorco 10/325 oral tablet 1 tab, Route: PO, Drug Form: TAB, Dosing Weight 81.818, kg, ONCE, 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 (Same as: [place] 325/10) Start Date: 11/21/16 Stop Date: 11/21/16 Status: CompletedTylenol with Codeine #3 oral tablet 1 - 2 tab, PO, Q4H, PRN Pain, X 5 day, # 24 tab, 0 Refill(s) Start Date: 11/21/16 Stop Date: 11/26/16 Status: OrderedUltram 50 mg oral tablet 100 mg=2 tab, PO, Q6H, PRN pain, X 5 day, # 30 tab, 0 Refill(s) Start Date: 11/21/16 Stop Date: 11/26/16 Status: Ordered Results No data available for [...]
--- OUTSIDE RECORDS SUMMARY | 2018-05-04 10:32 | XMS REPORT | Summary of Care ---
:1980 Author Organization [facility] Address [address] [place], [place] [address]- Encounter HQ Radha(TARA) [id number] Date(s): 04/21/16 - 04/30/16 [facility] [address] [place] [address]- [phone] Discharge Disposition: Home Attending Physician: Mony Mclaughlin MD Admitting Physician: Mony Mclaughlin MD Vital Signs Most recent to oldest 1 2 3 [Reference Range]: Height 165.1 cm 165.1 cm 165.1 cm (04/27/16 8:58 AM) (04/21/16 11:58 PM) (04/21/16 8:14 PM) Temperature Oral [96.4-99.1 98.5 DegF 97.9 DegF 98.4 DegF DegF] (04/30/16 8:00 AM) (04/30/16 3:58 AM) (04/29/16 11:51 PM) Blood Pressure [90-140/60-90 125/83 mmHg 117/81 mmHg 120/81 mmHg mmHg] (04/30/16 8:00 AM) (04/30/16 3:58 AM) (04/29/16 11:51 PM) Respiratory Rate [14-20 14 BRMIN 14 BRMIN 16 BRMIN BRMIN] (04/30/16 3:58 AM) (04/29/16 11:51 PM) (04/29/16 8:07 PM) Peripheral Pulse Rate 74 bpm 76 bpm 69 bpm [60-100 bpm] (04/30/16 8:00 AM) (04/30/16 3:58 AM) (04/29/16 11:51 PM) Weight 80.114 kg 72.727 kg 72.727 kg (04/28/16 11:12 PM) (04/27/16 8:58 AM) (04/21/16 11:58 PM) Body Mass Index 26.68 m2 26.68 m2 30.02 m2 (04/27/16 8:58 AM) (04/21/16 11:58 PM) (04/21/16 8:14 PM) Problem List Condition Effective Dates Status Health Status Informant Appendicitis(Confirmed) Resolved delivery(Confirmed) Resolved Hemorrhoids(Confirmed) Active Tonsillitis(Confirmed) Resolved Allergies, Adverse Reactions, Alerts Substance Reaction Severity Status NKDA Active Medications acetaminophen 325 mg, 1 tab, Route: PO, Drug form: TAB, Q4H, Dosing Weight 81.818, kg, PRN Pain Score 4-6, Start date: 04/21/16 23:36:00 CDT, Duration: 30 day, Stop date: 05/21/16 23:35:00 CDT Notes: Do not exceed 4 gm/day. (Same as: Tylenol) Start Date: 04/21/16 Stop Date: 04/29/16 Status: Discontinuedacetaminophen (ANES) (ANES) Route: IV, Drug form: INJ, Start date: 04/22/16 10:12:00 CDT, Stop date: 11:12:00 CDT Start Date: 04/22/16 Stop Date: 04/22/16 Status: Completedacetaminophen-hydrocodone 325 mg-10 mg oral tablet 1 tab, Route: PO, Drug Form: TAB, Dosing Weight 72.727, kg, Q4H, PRN Pain Score 4-6, Start date: 04/22/16 11:04:00 CDT, Duration: 30 day, Stop date: 05/22/16 11 :03:00 CDT Notes: Do not exceed 4gm/day of acetaminophen. (Same as: [place] 325/10) Start Date: 04/22/16 Stop Date: 04/23/16 Status: Discontinuedatropine 0.5 mg, 5 mL, Route: IV, Drug form: INJ, PRN, Dosing Weight 72.727, kg, PRN Bradycardia, Start date:04/27/16 6:59:00 CDT, Duration: 30 day, Stop date: 05/27 6:58:00 CDT Start Date: 04/27/16 Stop Date: 04/30/16 Status: Discontinuedciprofloxacin 400 mg/200 mL intravenous solution 400 mg, 200 mL, Route: IVPB, Drug form: INJ, [id number], Dosing Weight 72.727, kg, Start date: 04/26/1623:00:00 CDT, Duration: 30 day, Stop date: 05/26/16 11:00: 00 CDT Notes: Do not refrigerate Start Date: 04/26/16 Stop Date: 04/30/16 Status: DiscontinuedDilaudid 0.5 mg, 0.5 mL, Route: IVP, Drug form: INJ, ONCE, Dosing Weight 81.818, kg, Priority: STAT, Start date: 04/21/16 21:04:00 CDT, Stop date: 04/21/16 21:04:00 CDT Start Date: 04/21/16 Stop Date: 04/21/16 Status: CompletedDilaudid 1 mg, Route: IVP, ONCE, Dosing Weight 81.818, kg, Priority: STAT, Start date: 22:27:00 CDT,Stop date: 04/21/16 22:27:00 CDT Start Date: 04/21/16 Stop Date: 04/21/16 Status: CompletedDilaudid 0.5 mg, 0.5 mL, Route: IV, Drug form: INJ, Q3H, Dosing Weight 72.727, kg, PRN Pain Score 7-10, Startdate: 04/22/16 1:34:00 CDT, Duration: 30 day, Stop date: 05/22/16 1:33:00 CDT Start Date: 04/22/16 Stop Date: 04/22/16 Status: DiscontinuedDilaudid 0.5 mg, Route: IVP, ONCE, Dosing Weight 72.727, kg, Priority: STAT, Start date: 04/22/16 11:41:00 CDT, Stop date: 04/22/16 11:41:00 CDT Start Date: 04/22/16 Stop Date: 04/22/16 Status: CompletedDilaudid 1 mg, 1 mL, Route: IV, Drug form: INJ, Q2H, Dosing Weight 72.727, kg, PRN Pain Score 6-10, Start date: 04/22/16 8:22:00 CDT, Duration: 30 day, Stop date: 05/22 8:21:00 CDT Start Date: 04/22/16 Stop Date: 04/23/16 Status: DiscontinuedDilaudid 0.5 mg, Route: IVP, ONCE, Dosing Weight 72.727, kg, Priority: STAT, Start date: 04/22/16 11:30:00 CDT, Stop date: 04/22/16 11:30:00 CDT Start Date: 04/22/16 Stop Date: 04/22/16 Status: CompletedDilaudid 1 mg, 1 mL, Route: IV, Drug form: INJ, Q4H, Dosing Weight 72.727, kg, PRN Pain Score 7-10, Start date: 04/23/16 10:58:00 CDT, Duration: 30 day, Stop date: 10:57:00 CDT Start Date: 04/23/16 Stop Date: 04/24/16 Status: DiscontinuedDilaudid 0.5 mg, 0.5 mL, Route: IV, Drug form: INJ, Q4H, Dosing Weight 72.727, kg, PRN Pain Score 7-10, Startdate: 04/24/16 10:20:00 CDT, Duration: 30 day, Stop date: 05/24/16 10:19:00 CDT Start Date: 04/24/16 Stop Date: 04/24/16 Status: DiscontinuedDilaudid 0.5 mg, 0.5 mL, Route: IVP, Drug form: INJ, ONCE, Dosing Weight 81.818, kg, Priority: STAT, Start date: 04/21/16 22:51:00 CDT, Stop date: 04/21/16 22:51:00 CDT Start Date: 04/21/16 Stop Date: 04/21/16 Status: CompletedDilaudid 0.5 mg, 0.5 mL, Route: IV, Drug form: INJ, Q4H, Dosing Weight 72.727, kg, PRN Pain Score 7-10, Startdate: 04/24/16 14:00:00 CDT, Stop date: 05/24/16 13:59:00 CDT Start Date: 04/24/16 Stop Date: 04/30/16 Status: Discontinueddocusate 100 mg, 1 cap, Route: PO, Drug form: CAP, BID, Dosing Weight 81.818, kg, PRN Constipation, Start date: 04/21/16 23:36:00 CDT, Duration: 30 day, Stop date: 23:35:00 CDT Notes: (Same as: Colace) (Do Not Crush) Start Date: 04/21/16 Stop Date: 04/30/16 Status: Discontinueddocusate sodium 100 mg oral capsule 100 mg=1 cap, PO, Daily, 0 Refill(s) Start Date: 04/21/16 Status: OrderedDulcolax Laxative 40 mg, 8 tab, Route: PO, Drug form: ECTAB, ONCE, Dosing Weight 72.727, kg, Start date: 04/25/16 18:27:00 CDT, Stop date: 04/25/16 18:27:00 CDT Notes: (Same As: Dulcolax, Correctol) (Do Not Crush) "Do Not Crush" Start Date: 04/25/16 Stop Date: 04/25/16 Status: CompletedExparel 20 mL, Route: InFILtration(local), Drug Form: INJ, Dosing Weight 72.727, kg, ONCALL, For Hemorrhoidectomy, Start date: 04/22/16 10:00:00 CDT, Duration: 1 doses or times Notes: (Same as: Exparel) NOT FOR IV [...] (total dose=30 mL [266 mg]) Start Date: 04/22/16 Stop Date: 04/30/16 Status: Discontinuedfamotidine 20 mg, 1 tab, Route: PO, Drug form: TAB, Q12H, Dosing Weight 72.727, kg, Start date: 04/22/16 21:00:00 CDT, Duration: 30 day, Stop date: 05/22/16 9:00:00 CDT Notes: (Same as: Pepcid) Start Date: 04/22/16 Stop Date: 04/30/16 Status: DiscontinuedfentaNYL 50 microgram, Route: IVP, ONCE, Dosing Weight 72.727, kg, Start date: 04/22/16 11:20:00 CDT, Stop date: 04/22/16 11:20:00 CDT Start Date: 04/22/16 Stop Date: 04/22/16 Status: CompletedfentaNYL 50 microgram, Route: IVP, ONCE, Dosing Weight 72.727, kg, Start date: 04/22/16 11:20:00 CDT, Stop date: 04/22/16 11:20:00 CDT Start Date: 04/22/16 Stop Date: 04/22/16 Status: CompletedfentaNYL (ANES) Route: IV, Drug form: INJ, ONCE, Stop date: 04/22/16 10:50:00 CDT Start Date: 04/22/16 Stop Date: 04/22/16 Status: CompletedGoLYTELY 4,000 ml, Route: PO, Drug Form: PDR/REC, Dosing Weight 72.727, kg, ONCE, Start date: 04/25/16 18:27:00 CDT, Duration: 1 doses or times, Stop date: 04/25/16 18: 27:00 CDT Notes: (polyethylene glycol electrolyte solution 4 Liter bottle) (Same as: Tavia Meier) Start Date: 04/25/16 Stop Date: 04/25/16 Status: Completedhydromorphone 1 mg, 1 mL, Route: IVP, Drug form: INJ, Q2H, Dosing Weight 72.727, kg, PRN Pain Score 4-6, Start date: 04/22/16 11:04:00 CDT, Duration: 30 day, Stop date: 05/22 11:03:00 CDT Start Date: 04/22/16 Stop Date: 04/23/16 Status: DiscontinuedketOROLAC (ANES) IV, ONCE Start Date: 04/22/16 Stop Date: 04/22/16 Status: CompletedLactated Ringers 500 mL 500 mL, Rate: 25 ml/hr, Infuse over: 20 hr, Route: IV, Dosing Weight 72.727 kg, Total Volume: 500, Start date: 04/22/16 9:53:00 CDT, Duration: 30 day, Stop date : 05/22/16 9:52:00 CDT Start Date: 04/22/16 Stop Date: 04/22/16 Status: Discontinuedlidocaine (ANES) Route: IV, Drug form: INJ, ONCE, Stop date: 04/22/16 10:50:00 CDT Start Date: 04/22/16 Stop Date: 04/22/16 Status: Completedlidocaine 4% topical solution 1 appl, Route: TOP, Q4H, Drug form: GEL, PRN Pain Score 1-3, Start date: 12:10:00 CDT, Stopdate: 05/26/16 12:09:00 CDT Notes: (Same as: Xylocaine Jelly, Anestacon) Start Date: 04/26/16 Stop Date: 04/29/16 Status: DiscontinuedLovenox 40 mg, 0.4 mL, Route: SUB-Q, Drug form: INJ, [id number], Dosing Weight 72.727, kg , Start date: 04/23/16 10:00:00 CDT, Duration: 30 day, Stop date: 05/22/16 10:00 :00 CDT Notes: (Same as: Lovenox) Start Date: 04/23/16 Stop Date: 04/28/16 Status: DiscontinuedLR 500 ml INJ (ANES) Route: IV, Total Volume: 500, Start date: 04/22/16 10:07:00 CDT, Stop date: 11:07:00 CDT Start Date: 04/22/16 Stop Date: 04/22/16 Status: Completedmidazolam (ANES) Route: IV, Drug form: SOLN, ONCE, Stop date: 04/22/16 10:50:00 CDT Start Date: 04/22/16 Stop Date: 04/22/16 Status: Completedmorphine Sulfate 4 mg, 2 mL, Route: IVP, Drug form: INJ, Q4H, Dosing Weight 81.818, kg, PRN Pain Score 7-10, Start date: 04/21/16 23:36:00 CDT, Duration: 30 day, Stop date: 10/25 23:35:00 CDT Notes: (Same as:MORPhine Sulfate) Start Date: 04/21/16 Stop Date: 04/22/16 Status: DiscontinuedMSIR 15 mg, 1 tab, Route: PO, Drug form: TAB, Q4H, Dosing Weight 72.727, kg, PRN Pain Score 7-10, Start date: 04/23/16 10:58:00 CDT, Duration: 30 day, Stop date : 05/23/16 10:57:00 CDT Notes: (Same as:MORPhine Sulfate) Start Date: 04/23/16 Stop Date: 04/25/16 Status: DiscontinuedNIFEdipine 0.2% lidocaine 5% compound cream 1 mg, PO, TID, # 30 gm, 1 Refill(s) Start Date: 04/29/16 Status: Orderednitroglycerin 0.4 mg, 1 tab, Route: SL, Drug form: TAB, Q5Min, Dosing Weight 72.727, kg, PRN as needed for chest pain, Start date: 04/27/16 6:58:00 CDT, Duration: 3 doses or times, Stop date: Limited # of times Notes: (Same as:Nitroquick, Nitrostat)"Do Not Crush" Sublingual tablet Start Date: 04/27/16 Stop Date: 04/30/16 Status: DiscontinuedNorco 10/325 oral tablet 1 tab, Route: PO, Drug Form: TAB, Dosing Weight 72.727, kg, Q6H, PRN Pain Score 4-6, Start date: 04/27/16 12:07:00 CDT, Duration: 30 day, Stop date: 05/27/16 12 :06:00 CDT Notes: Do not exceed 4gm/day of acetaminophen. (Same as: [place] 325/10) Start Date: 04/27/16 Stop Date: 04/29/16 Status: DiscontinuedNS + KCL 20mEq/L 1000ml (Premix) 1,000 mL 1,000 mL, Rate: 40 ml/hr, Infuse over: 25 hr, Route: IV, Dosing Weight 72.727 kg , Total Volume: 1,000, Start date: 04/22/16 11:04:00 CDT, Stop date: 05/22/16 11 :03:00 CDT Notes: PREMIX IV - Do Not AlterWASTE: F/P - Sink; E - Municipal Trash Bin Start Date: 04/22/16 Stop Date: 04/30/16 Status: Discontinuedondansetron 4 mg, 2 mL, Route: IVP, Drug form: INJ, Q6H, Dosing Weight 72.727, kg, PRN Nausea & Vomiting, Start date: 04/22/16 11:04:00 CDT, Duration: 30 day, Stop date: 05/22/16 11:03:00 CDT Notes: (Same as: Gosia) MEDICATION WASTE Product Size: 4 mgProduct Wasted: ___ mg Start Date: 04/22/16 Stop Date: 04/30/16 Status: Discontinuedondansetron 4 mg, 2 mL, Route: IVP, Drug form: INJ, Q6H, Dosing Weight 81.818, kg, PRN Nausea & Vomiting, Start date: 04/21/16 23:36:00 CDT, Duration: 30 day, Stop date: 05/21/16 23:35:00 CDT Notes: (Same as: Gosia) MEDICATION WASTE Product Size: 4 mgProduct Wasted: ___ mg Start Date: 04/21/16 Stop Date: 04/22/16 Status: Discontinuedondansetron (ANES) Route: IV, Drug form: INJ, ONCE, Stop date: 04/22/16 10:50:00 CDT Start Date: 04/22/16 Stop Date: 04/22/16 Status: CompletedPercocet 10/325 oral tablet 1 tab, PO, Q6H, PRN Pain Score 7-10, # 20 tab, 0 Refill(s), given to patient Start Date: 04/30/16 Stop Date: 05/23/16 Status: OrderedPercocet 10/325 oral tablet 1 tab, Route: PO, Drug Form: TAB, Dosing Weight 72.727, kg, Q4H, PRN Pain Score 6-10, Start date: 04/25/16 10:40:00 CDT, Stop date: 05/25/16 10:39:00 CDT Notes: Do not exceed 4gm/day of acetaminophen. (Same as: Percocet-5/325) Start Date: 04/25/16 Stop Date: 04/30/16 Status: Discontinuedpromethazine + sodium chloride 0.9% INJ 50 mL 12.5 mg, 0.5 mL, Route: IVPB, Q4H, Dosing Weight 72.727, kg, PRN Nausea & Vomiting, Start date: 04/22/16 11:04:00 CDT, Duration: 30 day, Stop date: 11:03:00 CDT Notes: Do not give IV push. (Same as: Phenergan) Start Date: 04/22/16 Stop Date: 04/30/16 Status: Discontinuedpropofol (ANES) Route: IV, Drug form: INJ, ONCE, Stop date: 04/22/16 10:50:00 CDT Start Date: 04/22/16 Stop Date: 04/22/16 Status: CompletedRectiCare 5% topical cream 1 appl, TOP, 5X Day, PRN Hemorrhoids, 0 Refill(s) Start Date: 04/21/16 Stop Date: 04/29/16 Status: DiscontinuedSaline Flush 0.9% 10 mL, Route: IVP, Drug Form: INJ, Dosing Weight 75, kg, PRN, PRN Line Flush, Start date: 04/21/16 20:16:00 CDT, Duration: 30 day, Stop date: 05/21/16 20:15: 00 CDT Notes: (Same as: BD Posiflush) Start Date: 04/21/16 Stop Date: 04/30/16 Status: DiscontinuedSaline Flush 0.9% 10 ml, Route: IVP, Drug Form: INJ, Dosing Weight 81.818, kg, PRN, PRN Line Flush , Start date: 04/21/16 23:36:00 CDT, Duration: 30 day, Stop date: 05/21/16 23:35 :00 CDT Notes: (Same as: BD Posiflush) Start Date: 04/21/16 Stop Date: 04/30/16 Status: Discontinuedsodium chloride 0.9% 1000 ml INJ 1,000 mL 1,000 mL, Rate: 25 ml/hr, Infuse over: 40 hr, Route: IV, Dosing Weight 72.727 kg , Total Volume: 1,000, Start date: 04/26/16 9:21:00 CDT, Duration: 1 day, Stop date: 04/27/16 9:20:00 CDT Start Date: 04/26/16 Stop Date: 04/26/16 Status: Discontinuedsodium chloride 0.9% 1000 ml INJ 1,000 mL 1,000 mL, Rate: 125 ml/hr, Infuse over: 8 hr, Route: IV, Dosing Weight 81.818 kg , Total Volume: 1,000, Start date: 04/21/16 23:36:00 CDT, Duration: 30 day, Stop date: 05/21/16 23:35:00 CDT Start Date: 04/21/16 Stop Date: 04/22/16 Status: DiscontinuedTylenol 500 mg + empty container 1 bag Route: IV, Drug form: INJ, Q6H, Dosing Weight 80.114, kg, Start date: 04/29/16 12:00:00 CDT, Duration: 30 day, Stop date: 05/29/16 6:00:00 CDT Notes: Infuse over 15 minutesUse within 6 hours of opening vial or transferring to another container. Discard any unused portion. MEDICATION WASTE Product Size: 1000 mgProduct Wasted: _500__ mg Start Date: 04/29/16 Stop Date: 04/30/16 Status: DiscontinuedVitamin K1 10 mg, 1 mL, Route: SUB-Q, Drug form: INJ, ONCE, Dosing Weight 80.114, kg, Start date: 04/29/16 9:02:00 CDT, Duration: 1 doses or times, Stop date: 9:02:00 CDT Notes: (Same as: Aqua-[place]phy[place], Vitamin K) MEDICATION WASTE Product Size : 10 mgProduct Wasted: ___ mg Start Date: 04/29/16 Stop Date: 04/29/16 Status: Completed Results ELECTROLYTES Most recent to oldest [Reference Range]: 1 2 3 Sodium Lvl [135-145 mEq/L] 140 mEq/L 141 mEq/L (04/22/16 4:39 AM) (04/21/16 8:34 PM) Potassium Lvl [3.5-5.1 mEq/L] 3.5 mEq/L 3.7 mEq/L (04/22/16 4:39 AM) (04/21/16 8:34 PM) Chloride Lvl [95-109 mEq/L] 112 mEq/L 108 mEq/L *HI* (04/21/16 8:34 PM) (04/22/16 4:39 AM) CO2 [24-32 mEq/L] 23 mEq/L 26 mEq/L *LOW* (04/21/16 8:34 PM) (04/22/16 4:39 AM) AGAP [10.0-20.0 mEq/L] 8.5 mEq/L 10.7 mEq/L *LOW* (04/21/16 8:34 PM) (04/22/16 4:39 AM) CHEM PANEL Most recent to oldest [Reference Range]: 1 2 3 Creatinine Lvl [0.50-1.40 mg/dL] 0.52 mg/dL 0.65 mg/dL (04/22/16 4:39 AM) (04/21/16 8:34 PM) eGFR 126 mL/min/1.73m2 1 117 mL/min/1.73m2 2 *NA* *NA* (04/22/16 4:39 AM) (04/21/16 8:34 PM) BUN [7-22 mg/dL] 13 mg/dL 14 mg/dL (04/22/16 4:39 AM) (04/21/16 8:34 PM) B/C Ratio [6-25] 25 22 (04/22/16 4:39 AM) (04/21/16 8:34 PM) Glucose Lvl [70-99 mg/dL] 83 mg/dL 86 mg/dL (04/22/16 4:39 AM) (04/21/16 8:34 PM) Total Protein [6.4-8.4 g/dL] 6.6 g/dL 7.3 g/dL (04/22/16 4:39 AM) (04/21/16 8:34 PM) Albumin Lvl [3.5-5.0 g/dL] 3.6 g/dL 4.0 g/dL (04/22/16 4:39 AM) (04/21/16 8:34 PM) Globulin [2.0-4.0 g/dL] 3.0 g/dL 3.3 g/dL (04/22/16 4:39 AM) (04/21/16 8:34 PM) A/G Ratio [0.7-1.6] 1.2 1.2 (04/22/16 4:39 AM) (04/21/16 8:34 PM) Calcium Lvl [8.5-10.5 mg/dL] 7.9 mg/dL 8.5 mg/dL *LOW* (04/21/16 8:34 PM) (04/22/16 4:39 AM) ALT [0-65 unit/L] 17 unit/L 17 unit/L (04/22/16 4:39 AM) (04/21/16 8:34 PM) AST [0-37 unit/L] 8 unit/L 13 unit/L (04/22/16 4:39 AM) (04/21/16 8:34 PM) Alk Phos [39-136 unit/L] 41 unit/L 46 unit/L (04/22/16 4:39 AM) (04/21/16 8:34 PM) Bili Total [0.2-1.3 mg/dL] 0.6 mg/dL 0.2 mg/dL (04/22/16 4:39 AM) (04/21/16 8:34 PM) Amylase Lvl [25-115 unit/L] 79 unit/L (04/21/16 8:34 PM) Lipase Lvl [73-393 unit/L] 335 unit/L (04/21/16 8:34 PM) 1Result Comment: The eGFR is calculated [...] to oldest [Reference Range]: 1 2 3 U Preg [Negative] Negative (04/21/16 11:53 PM) URINE AND STOOL Most recent to oldest [Reference Range]: 1 2 3 UA Turbidity [Clear] Slight *ABN* (04/21/16 11:53 PM) UA Color [Yellow] Yellow *NA* (04/21/16 11:53 PM) UA pH [5.0-8.0] 5.0 (04/21/16 11:53 PM) UA Spec Grav [<=1.030] 1.023 (04/21/16 11:53 PM) UA Glucose [Negative mg/dL] Negative mg/dL *NA* (04/21/16 11:53 PM) UA Blood [Negative] Large *ABN* (04/21/16 11:53 PM) UA Ketones [Negative mg/dL] Negative mg/dL *NA* (04/21/16 11:53 PM) UA Protein [Negative mg/dL] 30 mg/dL *ABN* (04/21/16 11:53 PM) UA Urobilinogen [0.1-1.0 mg/dL] <=1.0 mg/dL *NA* (04/21/16 11:53 PM) UA Bili [Negative] Negative *NA* (04/21/16 11:53 PM) UA Leuk Est [Negative] Moderate *ABN* (04/21/16 11:53 PM) UA Nitrite [Negative] Negative (04/21/16 11:53 PM) UA WBC [0-5 /HPF] 28 /HPF *HI* (04/21/16 11:53 PM) UA RBC [0-2 /HPF] >182 /HPF *HI* (04/21/16 11:53 PM) UA Bacteria [None Seen /HPF] Occasional /HPF *NA* (04/21/16 11:53 PM) UA Sq Epi [Few /LPF] Occasional /LPF *NA* (04/21/16 11:53 PM) UA Mucus [None Seen /LPF] Few /LPF *NA* (04/21/16 11:53 PM) HEMATOLOGY Most recent to oldest 1 2 3 [Reference Range]: WBC [3.7-10.4 K/CMM] 10.3 K/CMM 5.9 K/CMM 7.1 K/CMM (04/26/16 10:41 PM) (04/25/16 10:14 AM) (04/22/16 4:39 AM) RBC [4.20-5.40 M/CMM] 4.50 M/CMM 4.15 M/CMM 4.13 M/CMM (04/26/16 10:41 PM) *LOW* *LOW* (04/25/16 10:14 AM) (04/22/16 4:39 AM) Hgb [12.0-16.0 g/dL] 11.6 g/dL 12.6 g/dL 11.6 g/dL *LOW* (04/26/16 10:41 PM) *LOW* (04/29/16 6:45 AM) (04/25/16 10:14 AM) Hct [36.0-48.0 %] 36.0 % 38.3 % 35.2 % (04/29/16 6:45 AM) (04/26/16 10:41 PM) *LOW* (04/25/16 10:14 AM) MCV [80.0-98.0 fL] 85.0 fL 84.9 fL 85.3 fL (04/26/16 10:41 PM) (04/25/16 10:14 AM) (04/22/16 4:39 AM) MCH [27.0-31.0 pg] 27.9 pg 27.8 pg 27.9 pg (04/26/16 10:41 PM) (04/25/16 10:14 AM) (04/22/16 4:39 AM) MCHC [32.0-36.0 g/dL] 32.8 g/dL 32.8 g/dL 32.7 g/dL (04/26/16 10:41 PM) (04/25/16 10:14 AM) (04/22/16 4:39 AM) RDW [11.5-14.5 %] 13.6 % 13.4 % 13.3 % (04/26/16 10:41 PM) (04/25/16 10:14 AM) (04/22/16 4:39 AM) Platelet [133-450 K/CMM] 258 K/CMM 240 K/CMM 237 K/CMM (04/26/16 10:41 PM) (04/25/16 10:14 AM) (04/22/16 4:39 AM) MPV [7.4-10.4 fL] 9.2 fL 8.7 fL 8.7 fL (04/26/16 10:41 PM) (04/25/16 10:14 AM) (04/22/16 4:39 AM) Segs [45.0-75.0 %] 79.6 % 48.3 % 44.8 % *HI* (04/25/16 10:14 AM) *LOW* (04/26/16 10:41 PM) (04/22/16 4:39 AM) Lymphocytes [20.0-40.0 %] 12.9 % 37.4 % 41.6 % *LOW* (04/25/16 10:14 AM) *HI* (04/26/16 10:41 PM) (04/22/16 4:39 AM) Monocytes [2.0-12.0 %] 6.1 % 9.2 % 8.8 % (04/26/16 10:41 PM) (04/25/16 10:14 AM) (04/22/16 4:39 AM) Eosinophils [0.0-4.0 %] 0.6 % 4.3 % 4.2 % (04/26/16 10:41 PM) *HI* *HI* (04/25/16 10:14 AM) (04/22/16 4:39 AM) Basophils [0.0-1.0 %] 0.8 % 0.8 % 0.6 % (04/26/16 10:41 PM) (04/25/16 10:14 AM) (04/22/16 4:39 AM) Segs-Bands # [1.5-8.1 8.2 K/CMM 2.8 K/CMM 3.2 K/CMM K/CMM] *HI* (04/25/16 10:14 AM) (04/22/16 4:39 AM) (04/26/16 10:41 PM) Lymphocytes # [1.0-5.5 1.3 K/CMM 2.2 K/CMM 3.0 K/CMM K/CMM] (04/26/16 10:41 PM) (04/25/16 10:14 AM) (04/22/16 4:39 AM) Monocytes # [0.0-0.8 0.6 K/CMM 0.5 K/CMM 0.6 K/CMM K/CMM] (04/26/16 10:41 PM) (04/25/16 10:14 AM) (04/22/16 4:39 AM) Eosinophils # [0.0-0.5 0.1 K/CMM 0.3 K/CMM 0.3 K/CMM K/CMM] (04/26/16 10:41 PM) (04/25/16 10:14 AM) (04/22/16 4:39 AM) Basophils # [0.0-0.2 0.1 K/CMM K/CMM] (04/26/16 10:41 PM) PT [12.0-14.7 seconds] 13.7 seconds (04/24/16 7:05 PM) INR [0.85-1.17] 1.02 (04/24/16 7:05 PM) Fibrinogen Lvl [230-510 342 mg/dL mg/dL] (04/24/16 7:05 PM) Plt Function Collagen/Epi 142 seconds [80-184 seconds] (04/24/16 7:05 PM) Plt Function Collagen/ADP 114 seconds [56-102 seconds] *HI* (04/24/16 7:05 PM) Interp (EPI/ADP) See Note 1 (04/24/16 7:05 PM) Factor VIII [50-242 %] 145 % (04/25/16 10:14 AM) vWF Antigen [45-165 %] 117 % (04/25/16 10:14 AM) vWF Assay [45-140 %] 98 % (04/25/16 10:14 AM) vW Interp von Willebrand panel shows no decrease in any components (Factor VIII, vWF antigen and functional). Impression: no evidence of von Willebrand disease (except for post-infusion level in patients with known disease). CPT: 61017 *NA* (04/25/16 10:14 AM) PTT [22.9-35.8 seconds] 38.9 seconds *HI* (04/24/16 7:05 PM) 1Result Comment: No evidence of significant platelet dysfunction by the PFA-100 test. If a bleeding disorder is suspected clinically, recommend repeat testing. If normal platelet function is confirmed, consider testing for factor deficiencies and/or more detailed platelet aggregation/release studies. Thienopyridines (Ticlid, Plavix) may not produce a significant prolongation of the PFA-100 closure time; patients receiving these medications should be assessed using the Verify Now assay. Immunizations No data available for this section [...] No Assessment and Plan Extracted from: Title: Progress Note Author: Reanna Armstrong MD Date: 04/30/16 Progress Note - Daily [facility] Completed: Apr, 12:08 by Reanna Armstrong MD RM: 323 - 1P, SE C3BW SHALOM RIGGS 35y (: 1980) F Attending: Mony Mclaughlin MD Service: Colon & Rectal Surg Service Reason for Admission: ANAL FISSURES, HEMMORHOIDS, INTRACTABLE RECTAL PAIN Working DRG: Other digestive system diagnoses w/o CC/CUSTODIAL Code status: Full Code [Ordered] Current diet: Isolation: None Documented Allergies: NKDA SUBJECTIVE Feeling better Bleeding improved OBJECTIVE HEENT: Sclera anicteric, conjunctivae pink. Extraocular muscles are intact. Oropharynx clear. NECK: Supple, no thyromegaly. LUNGS: Clear. HEART: Sounds regular. No murmurs. ABDOMEN: Soft, nondistended, no masses. EXTREMITIES: Without pitting edema. (no lab data in past 24 hours) Warner still necessary (Yes/No): Line still necessary (Yes/No): Vitals Tmp(F) Pulse BP RR SpO2 FIO2 04/30 08:00 98.5 74 125/83 -- 97 --- 04/30 03:58 97.9 76 117/81 14 99 --- 04/29 23:51 98.4 69 120/81 14 98 --- 04/29 20:07 99.0 82 124/87 16 100 --- 04/29 16:00 99.1 78 127/95 16 100 --- 24 Hr Tmax: 99.1F (37.28c) at 04/29 16:00 Vital Signs are the last 5 in the past 48 hours. Date Wt(kg) Wt(lb) Ht(cm) Ht(in) Method 04/28 80.11 176.25 Measured 04/27 72.73 160.00 165.10 65.00 Estimated 04/21 (initial) 81.82 180.00 Estimated 04/21 165.10 65.00 Stated I&O Record In Out Bal 04/30 24hr Tot 0 0 0 04/29 24hr Tot 1082 1002 80 Medications (14) Active Scheduled Meds (3): 04/29/16 acetaminophen 500 mg + empty container 1 bag (Tylenol 500 mg + empty container 1 bag) 500 mg IV Q6H 200 ml/hr 04/26/16 ciprofloxacin (ciprofloxacin 400 mg/200 mL intravenous solution) 400 mg IVPB [id number] 200 ml/hr 04/22/16 famotidine 20 mg PO Q12H Unscheduled Meds (1): 04/22/16 bupivacaine liposome (Exparel) 20 mL InFILtration(local) ONCALL PRN Meds (8): 04/25/16 acetaminophen-oxycodone (Percocet 10/325 oral tablet) 1 tab PO Q4H 04/27/16 atropine 0.5 mg IV PRN 04/21/16 docusate 100 mg PO BID 04/27/16 nitroglycerin 0.4 mg SL Q5Min 04/22/16 ondansetron 4 mg IVP Q6H 04/22/16 promethazine + sodium chloride 0.9% INJ 50 mL 12.5 mg IVPB Q4H 151.5 ml/hr 04/21/16 sodium chloride (Saline Flush 0.9%) 10 mL IVP PRN 04/21/16 sodium chloride (Saline Flush 0.9%) 10 ml IVP PRN One Time Meds (1): 04/29/16 (Completed) phytonadione (Vitamin K1) 10 mg SUB-Q ONCE Continuous Infusions (1): 04/22/16 NS + KCL 20mEq/L 1000ml (Premix) 1,000 mL 1,000 mL 40 ml/hr ASSESSMENT Ms. Riggs has a postoperative rectal bleeding. HB stable. Bleeding improved Colonoscopy negative for bleeding higher up. S/P hemrroidectomy --No evidence of DIC or platelet dysfunction either qualitatitve or quantitative --No evidence of coagulopathy as PT,PTT baseline normal --No evidence of von willberand disease Extracted from: Title: Clinical Document Author: Mony Mclaughlin MD Date: 04/22/16 COLON & RECTAL SURGERY HISTORY & PHYSICAL: Mony Mclaughlin MD, FACS, FASCRS Attending: Mony Mclaughlin MD Service: Colon & Rectal Surg Service Code status: Full Code [Ordered] Reason for Admission: RECTAL BLEEDING Working DRG: None Documented Isolation: None Documented Consulting Physicians: (none on file) HPI: The pt is a 35 yoF known to our service, who recently underwent fissurectomy w / botox, excision of skin tags, subcutaneous fistulotomy, and ligation of internal hemorrhoids on 03/27/16 who presented to [facility] ER with rectal pain and bleeding. She presented to our office last week with similar sxs at which time she was found to have a new edematous and minorly thrombosed external hemorrhoid, and medical mojgan cruz was advised. However, per her report, her sxs have not improved, and she was becoming nauseous from the pain. Denies constipation, diarrhea. ROS: General: Denies chills, fever, weight loss, weight gain, loss of appetite Eyes: Denies vision loss, retina problems Ears/Nose/Throat: Denies ringing in ears, hearing problems, congestion, dental problems, hoarseness, difficulty swallowing, recent sore throat Cardiovascular: Denies irregular heartbeat, chest pain, heart murmur, abnormal heart valve Pulmonary: Denies productive cough with sputum, shortness of breath, wheezing Genitourinary: Denies frequent urination, blood in urine, urinary incontinence , difficulty urinating, pneumaturia, fecaluria, vaginal discharge Musculoskeletal: Denies back pain, joint pain, joint swelling Skin: Denies skin rashes, skin itching Neurologic: Denies numbness, weakness, headaches, memory loss, seizures, fainting/blackouts, migraines Psychiatric: Denies anxiety, depression, suicidal thoughts Endocrine: Denies heat/cold intolerance, excessive hunger, excessive thirst, excessive urination, hormonal abnormalities Liver: Denies jaundice Hematologic/Lymphatic: Denies abnormal bleeding, abnormal bruising, enlarged lymph glands PMH: as per HPI PAST SURGICAL HISTORY: abdominoplasty tonsillectomy appendectomy SOCIAL HISTORY: denies alcohol, tobacco, or illicit drug use FAMILY HISTORY: denies history of colon cancer Allergies: NKDA MEDICATIONS: See JAN EXAM: Vitals Tmp(F) Pulse BP RR SpO2 FIO2 04/22 07:41 98.2 100 118/67 18 99 --- 04/22 04:00 98.8 100 137/92 18 --- --- 04/22 00:01 99.1 80 141/96 18 --- --- 04/21 23:28 ---- 84 131/98 18 98 --- 04/21 22:52 ---- 85 148/107 18 --- --- 24 Hr Tmax: 99.3F (37.39c) at 04/21 20:14 Vital Signs are the last 5 in the past 48 hours. Labs (Last four charted values) WBC 7.1 (APR 22) 6.5 (APR 21) Hgb L 11.5 (APR 22) 12.6 (APR 21) Hct L 35.2 (APR 22) 39.3 (APR 21) Plt 237 (APR 22) 262 (APR 21) Na 140 (APR 22) 141 (APR 21) K 3.5 (APR 22) 3.7 (APR 21) CO2 L 23 (APR 22) 26 (APR 21) Cl H 112 (APR 22) 108 (APR 21) Cr 0.52 (APR 22) 0.65 (APR 21) BUN 13 (APR 22) 14 (APR 21) Glucose Random 83 (APR 22) 86 (APR 21) Ca L 7.9 (APR 22) 8.5 (APR 21) PHYSICAL EXAM: General: Well developed, well nourished, in no acute distress. Head & Neck: Normocephalic, neck supple, no palpable thyroid masses. Eyes: Extra ocular muscles intact, sclera anicteric, pupils within normal limits. Ear, Nose, & Throat: No abnormalities noted. Genitourinary: Normal genitalia. Extremities: Normal muscle tone and range of motion; no cyanosis or tenderness. Skin: Normal color, turgor, no rash or cyanosis. Lymphatic: No palpable lymph nodes. Neurologic: Normal sensation and strength, normal gait and speech, moves all extremities. Psychiatric: Alert and oriented, normal judgment, mood and affect. Abdomen is soft nontender in all quadrants, nondistended, no rebound, guarding , or peritonitis Anorectal: Inspection reveals BRBPR w/ point tenderness at the perianal skin verge. however, previous edematous thrombosed external hemorrhoid has improved since last office visit DIAGNOSES: rectal pain rectal bleeding ASSESSMENT AND PLAN: Although her edema and thrombosed hemorrhoid has improved on physical exam since her last office visit, the patient's pain has worsened and there is evidence of romie bleeding today. Therefore, I recomm end an examination under anesthesia, possible ligation of internal hemorrhoids , suture ligation for hemostasis, and all other indicated procedures depending on the intraoperative findings. Postoperative admission for pain control. She strongly desires to proceed risks vs benefits discussed extensively total exam, coordination of care >45 minutes w/ 50% spent in education of the patient
--- OUTSIDE RECORDS SUMMARY | 2018-05-04 10:32 | XMS REPORT | Summary of Care ---
:1980 Author Organization [facility] Address [address] [place], [place] [address]- Encounter HQ Mauricio_eneida(FIN) [id number] Date(s): 10/17/16 - 10/17/16 [facility] [address] [place] [address]- [phone] Discharge Diagnosis: Acute pancreatitis Discharge Disposition: Home or Self Care Attending Physician: Dylan Byrne MD Vital Signs Most recent to oldest [Reference Range]: 1 2 Height 165.1 cm (10/17/16 1:47 PM) Temperature Oral [96.4-99.1 DegF] 98.4 DegF 98.3 DegF (10/17/16 4:55 PM) (10/17/16 1:47 PM) Blood Pressure [90-140/60-90 mmHg] 140/99 mmHg 159/113 mmHg (10/17/16 4:55 PM) *HI* (10/17/16 1:47 PM) Respiratory Rate [14-20 BRMIN] 18 BRMIN 18 BRMIN (10/17/16 4:55 PM) (10/17/16 1:47 PM) Peripheral Pulse Rate [60-100 bpm] 90 bpm 89 bpm (10/17/16 4:55 PM) (10/17/16 1:47 PM) Weight 81.818 kg (10/17/16 1:47 PM) Body Mass Index 30.02 m2 (10/17/16 1:47 PM) Problem List Condition Effective Dates Status Health Status Informant Appendicitis(Confirmed) Resolved delivery(Confirmed) Resolved Hemorrhoids(Confirmed) Active Tonsillitis(Confirmed) Resolved Allergies, Adverse Reactions, Alerts Substance Reaction Severity Status NKDA Active Medications ketOROLAC 30 mg, Route: IVP, Drug form: INJ, ONCE, Dosing Weight 81.818, kg, Priority: STAT, Start date: 10/17/16 15:49:00 SURFACING TECHNICIAN, Stop date: 10/17/16 15:49:00 SURFACING TECHNICIAN Start Date: 10/17/16 Stop Date: 10/17/16 Status: Completedmorphine Sulfate 4 mg, Route: IVP, ONCE, Dosing Weight 81.818, kg, Priority: STAT, Start date: 14:13:00 SURFACING TECHNICIAN,Stop date: 10/17/16 14:13:00 SURFACING TECHNICIAN Start Date: 10/17/16 Stop Date: 10/17/16 Status: Completedmorphine Sulfate 4 mg, Route: IVP, ONCE, Dosing Weight 81.818, kg, Priority: STAT, Start date: 15:49:00 SURFACING TECHNICIAN,Stop date: 10/17/16 15:49:00 SURFACING TECHNICIAN Start Date: 10/17/16 Stop Date: 10/17/16 Status: Completedondansetron 4 mg, Route: IVP, Drug form: INJ, ONCE, Dosing Weight 81.818, kg, Priority: STAT , Start date: 10/17/16 15:49:00 SURFACING TECHNICIAN, Stop date: 10/17/16 15:49:00 SURFACING TECHNICIAN Start Date: 10/17/16 Stop Date: 10/17/16 Status: CompletedPepcid 20 mg oral tablet 20 mg=1 tab, PO, BID, # 14 tab, 0 Refill(s) Start Date: 10/17/16 Stop Date: 10/24/16 Status: OrderedSaline Flush 0.9% 10 mL, Route: IVP, Drug Form: INJ, Dosing Weight 81.818, kg, PRN, PRN Line Flush , Start date: 10/17/16 13:56:00 SURFACING TECHNICIAN, Duration: 30 day, Stop date: 11/16/16 13:55 :00 SURFACING TECHNICIAN Notes: (Same as: BD Posiflush) Start Date: 10/17/16 Stop Date: 10/17/16 Status: Discontinuedsodium chloride 0.9% 1000 ml INJ 1,000 mL 1,000 mL, Rate: 1,000 ml/hr, Infuse over: 1 hr, Route: IV, Dosing Weight 81.818 kg, Total Volume: 1,000, Start date: 10/17/16 14:15:00 SURFACING TECHNICIAN, Duration: 1 hr, Stop date: 10/17/16 15:14:00 SURFACING TECHNICIAN Start Date: 10/17/16 Stop Date: 10/17/16 Status: Completedtramadol 200 mg oral tablet, extended release 200 mg=1 tab, PO, Daily, # 10 tab, 0 Refill(s) Start Date: 10/17/16 Stop Date: 10/27/16 Status: OrderedZofran 4 mg, Route: IVP, Drug form: INJ, ONCE, Dosing Weight 81.818, kg, Priority: STAT , Start date: 10/17/16 14:14:00 SURFACING TECHNICIAN, Stop date: 10/17/16 14:14:00 SURFACING TECHNICIAN Start Date: 10/17/16 Stop Date: 10/17/16 Status: CompletedZofran 4 mg oral tablet 4 mg=1 tab, PO, BID, PRN Nausea, X 5 day, # 10 tab, 0 Refill(s) Start Date: 10/17/16 Stop Date: 10/22/16 Status: Ordered Results ELECTROLYTES Most recent to oldest [Reference Range]: 1 Sodium Lvl [135-145 mEq/L] 143 mEq/L (10/17/16 2:11 PM) Potassium Lvl [3.5-5.1 mEq/L] 3.4 mEq/L *LOW* (10/17/16 2:11 PM) Chloride Lvl [95-109 mEq/L] 109 mEq/L (10/17/16 2:11 PM) CO2 [24-32 mEq/L] 25 mEq/L (10/17/16 2:11 PM) AGAP [10.0-20.0 mEq/L] 12.4 mEq/L (10/17/16 2:11 PM) CHEM PANEL Most recent to oldest [Reference Range]: 1 Creatinine Lvl [0.50-1.40 mg/dL] 0.59 mg/dL (10/17/16 2:11 PM) eGFR 120 mL/min/1.73m2 1 *NA* (10/17/16 2:11 PM) BUN [7-22 mg/dL] 12 mg/dL (10/17/16 2:11 PM) B/C Ratio [6-25] 20 (10/17/16 2:11 PM) Glucose Lvl [70-99 mg/dL] 91 mg/dL (10/17/16 2:11 PM) Total Protein [6.4-8.4 g/dL] 7.4 g/dL (10/17/16 2:11 PM) Albumin Lvl [3.5-5.0 g/dL] 3.8 g/dL (10/17/16 2:11 PM) Globulin [2.7-4.2 g/dL] 3.6 g/dL (10/17/16 2:11 PM) A/G Ratio [0.7-1.6] 1.1 (10/17/16 2:11 PM) Calcium Lvl [8.5-10.5 mg/dL] 8.9 mg/dL (10/17/16 2:11 PM) Magnesium Lvl [1.8-2.4 mg/dL] 1.9 mg/dL (10/17/16 2:11 PM) ALT [0-65 unit/L] 21 unit/L (10/17/16 2:11 PM) AST [0-37 unit/L] 9 unit/L (10/17/16 2:11 PM) Alk Phos [39-136 unit/L] 46 unit/L (10/17/16 2:11 PM) Bili Total [0.2-1.3 mg/dL] 0.3 mg/dL (10/17/16 2:11 PM) Lipase Lvl [73-393 unit/L] 510 unit/L *HI* (10/17/16 2:11 PM) 1Result Comment: The eGFR is calculated [...] [Reference Range]: 1 U Preg [Negative] Negative (10/17/16 2:11 PM) URINE AND STOOL Most recent to oldest [Reference Range]: 1 UA Turbidity [Clear] Clear (10/17/16 2:11 PM) UA Color Ltyellow *NA* (10/17/16 2:11 PM) UA pH [5.0-8.0] 7.0 (10/17/16 2:11 PM) UA Spec Grav [<=1.030] 1.016 (10/17/16 2:11 PM) UA Glucose [Negative mg/dL] Negative mg/dL *NA* (10/17/16 2:11 PM) UA Blood [Negative] Negative (10/17/16 2:11 PM) UA Ketones [Negative mg/dL] Negative mg/dL *NA* (10/17/16 2:11 PM) UA Protein [Negative mg/dL] Negative mg/dL (10/17/16 2:11 PM) UA Urobilinogen [0.1-1.0 mg/dL] <=1.0 mg/dL *NA* (10/17/16 2:11 PM) UA Bili [Negative] Negative *NA* (10/17/16 2:11 PM) UA Leuk Est [Negative] Negative (10/17/16 2:11 PM) UA Nitrite [Negative] Negative (10/17/16 2:11 PM) UA WBC [0-5 /HPF] <1 /HPF (10/17/16 2:11 PM) UA Sq Epi [Few /LPF] Occasional /LPF *NA* (10/17/16 2:11 PM) UA Amorph Petrona [None Seen /HPF] Occasional /HPF *NA* (10/17/16 2:11 PM) HEMATOLOGY Most recent to oldest [Reference Range]: 1 WBC [3.7-10.4 K/CMM] 5.7 K/CMM (10/17/16 2:11 PM) RBC [4.20-5.40 M/CMM] 4.31 M/CMM (10/17/16 2:11 PM) Hgb [12.0-16.0 g/dL] 13.4 g/dL (10/17/16 2:11 PM) Hct [36.0-48.0 %] 39.4 % (10/17/16 2:11 PM) MCV [80.0-98.0 fL] 91.5 fL (10/17/16 2:11 PM) MCH [27.0-31.0 pg] 31.1 pg *HI* (10/17/16 2:11 PM) MCHC [32.0-36.0 g/dL] 34.0 g/dL (10/17/16 2:11 PM) RDW [11.5-14.5 %] 12.3 % (10/17/16 2:11 PM) Platelet [133-450 K/CMM] 258 K/CMM (10/17/16 2:11 PM) MPV [7.4-10.4 fL] 8.5 fL (10/17/16 2:11 PM) Segs [45.0-75.0 %] 52.6 % (10/17/16 2:11 PM) Lymphocytes [20.0-40.0 %] 35.9 % (10/17/16 2:11 PM) Monocytes [2.0-12.0 %] 7.3 % (10/17/16 2:11 PM) Eosinophils [0.0-4.0 %] 3.4 % (10/17/16 2:11 PM) Basophils [0.0-1.0 %] 0.8 % (10/17/16 2:11 PM) Segs-Bands # [1.5-8.1 K/CMM] 3.0 K/CMM (10/17/16 2:11 PM) Lymphocytes # [1.0-5.5 K/CMM] 2.0 K/CMM (10/17/16 2:11 PM) Monocytes # [0.0-0.8 K/CMM] 0.4 K/CMM (10/17/16 2:11 PM) Eosinophils # [0.0-0.5 K/CMM] 0.2 K/CMM (10/17/16 2:11 PM) Immunizations No data available for this [...]
--- OUTSIDE RECORDS SUMMARY | 2018-05-04 10:32 | XMS REPORT | Summary of Care ---
:[address] [facility] Address [address] [place], [place] [address]- Encounter HQ Mauricio_eneida(FIN) [id number] Date(s): 10/20/16 - 10/21/16 [facility] [address] [place] [address]- Discharge Diagnosis: Acute UTI Discharge Diagnosis: Abdominal pain, RUQ Discharge Disposition: Home or Self Care Attending Physician: Michael Kincaid MD Vital Signs Most recent to oldest 1 2 3 [Reference Range]: Height 165.1 cm (10/20/16 9:19 PM) Temperature Oral 98.1 DegF 98.4 DegF [96.4-99.1 DegF] (10/21/16 3:50 AM) (10/20/16 9:19 PM) Blood Pressure 125/80 mmHg 132/94 mmHg 144/102 mmHg [90-140/60-90 mmHg] (10/21/16 3:50 AM) (10/21/16 12:22 AM) *HI* (10/20/16 10:22 PM) Respiratory Rate [14-20 18 BRMIN 20 BRMIN 18 BRMIN BRMIN] (10/21/16 3:50 AM) (10/21/16 12:22 AM) (10/20/16 9:19 PM) Peripheral Pulse Rate 71 bpm 94 bpm [60-100 bpm] (10/21/16 12:22 AM) (10/20/16 9:19 PM) Weight 81.818 kg (10/20/16 9:19 PM) Body Mass Index 30.02 m2 (10/20/16 9:19 PM) Problem List Condition Effective Dates Status Health Status Informant Appendicitis(Confirmed) Resolved delivery(Confirmed) Resolved Hemorrhoids(Confirmed) Active Tonsillitis(Confirmed) Resolved Allergies, Adverse Reactions, Alerts Substance Reaction Severity Status NKDA Active Medications Bactrim DS 800 mg- 160 mg oral tablet 1 tab, PO, BID, X 14 day, # 28 tab, 0 Refill(s) Start Date: 10/21/16 Stop Date: 11/04/16 Status: Orderedibuprofen 800 mg oral tablet 800 mg=1 tab, PO, Q8H, PRN Pain, Take with food, # 30 tab, 0 Refill(s) Start Date: 10/21/16 Stop Date: 10/28/16 Status: OrderedketOROLAC 30 mg, Route: IVP, Drug form: INJ, ONCE, Dosing Weight 81.818, kg, Priority: STAT, Start date: 10/21/16 0:45:00 APPAREL MACHINERY INSTRUCTOR, Stop date: 10/21/16 0:45:00 APPAREL MACHINERY INSTRUCTOR Start Date: 10/21/16 Stop Date: 10/21/16 Status: Completedmorphine Sulfate 4 mg, 1 mL, Route: IVP, Drug form: SOLN, ONCE, Dosing Weight 81.818, kg, Priority: STAT, Start date:10/20/16 21:46:00 APPAREL MACHINERY INSTRUCTOR, Stop date: 10/20/16 21:46:00 APPAREL MACHINERY INSTRUCTOR Notes: (Same as:MORPhine Sulfate) Start Date: 10/20/16 Stop Date: 10/20/16 Status: Completedmorphine Sulfate 4 mg, Route: IVP, ONCE, Dosing Weight 81.818, kg, Priority: STAT, Start date: 23:12:00 APPAREL MACHINERY INSTRUCTOR,Stop date: 10/20/16 23:12:00 APPAREL MACHINERY INSTRUCTOR Start Date: 10/20/16 Stop Date: 10/20/16 Status: CompletedNS (Bolus) IV 1,000 mL, 1,000 ml/hr, Infuse Over: 1 hr, Route: IV, 1,000, Drug form: INJ, ONCE , Priority: STAT, Dosing Weight 81.818 kg, Start date: 10/20/16 21:46:00 APPAREL MACHINERY INSTRUCTOR, Duration: 1 doses or times, Stop date: 10/20/16 21:46:00 APPAREL MACHINERY INSTRUCTOR Start Date: 10/20/16 Stop Date: 10/20/16 Status: CompletedSaline Flush 0.9% 10 mL, Route: IVP, Drug Form: INJ, Dosing Weight 81.818, kg, PRN, PRN Line Flush , Start date: 10/20/16 21:15:00 APPAREL MACHINERY INSTRUCTOR, Duration: 30 day, Stop date: 11/19/16 21:14 :00 APPAREL MACHINERY INSTRUCTOR Notes: (Same as: BD Posiflush) Start Date: 10/20/16 Stop Date: 10/21/16 Status: DiscontinuedTylenol with Codeine #3 oral tablet 1 - 2 tab, PO, Q4H, PRN Pain, X 2 day, # 20 tab, 0 Refill(s) Start Date: 10/21/16 Stop Date: 10/23/16 Status: CompletedZofran 4 mg, 2 mL, Route: IVP, Drug form: INJ, ONCE, Dosing Weight 81.818, kg, Priority : STAT, Start date: 10/20/16 21:46:00 APPAREL MACHINERY INSTRUCTOR, Stop date: 10/20/16 21:46:00 APPAREL MACHINERY INSTRUCTOR Notes: (Same as: Zofran) MEDICATION WASTE Product Size: 4 mgProduct Wasted: ___ mg Start Date: 10/20/16 Stop Date: 10/20/16 Status: CompletedZofran 4 mg, Route: IVP, Drug form: INJ, ONCE, Dosing Weight 81.818, kg, Priority: STAT , Start date: 10/20/16 23:12:00 APPAREL MACHINERY INSTRUCTOR, Stop date: 10/20/16 23:12:00 APPAREL MACHINERY INSTRUCTOR Start Date: 10/20/16 Stop Date: 10/20/16 Status: Completed Results ELECTROLYTES Most recent to oldest [Reference Range]: 1 Sodium Lvl [135-145 mEq/L] 141 mEq/L (10/20/16 9:35 PM) Potassium Lvl [3.5-5.1 mEq/L] 3.6 mEq/L (10/20/16 9:35 PM) Chloride Lvl [95-109 mEq/L] 106 mEq/L (10/20/16 9:35 PM) CO2 [24-32 mEq/L] 28 mEq/L (10/20/16 9:35 PM) AGAP [10.0-20.0 mEq/L] 10.6 mEq/L (10/20/16 9:35 PM) CHEM PANEL Most recent to oldest [Reference Range]: 1 Creatinine Lvl [0.50-1.40 mg/dL] 0.74 mg/dL (10/20/16 9:35 PM) eGFR 106 mL/min/1.73m2 1 *NA* (10/20/16 9:35 PM) BUN [7-22 mg/dL] 14 mg/dL (10/20/16 9:35 PM) B/C Ratio [6-25] 19 (10/20/16 9:35 PM) Glucose Lvl [70-99 mg/dL] 98 mg/dL (10/20/16 9:35 PM) Total Protein [6.4-8.4 g/dL] 7.2 g/dL (10/20/16 9:35 PM) Albumin Lvl [3.5-5.0 g/dL] 3.8 g/dL (10/20/16 9:35 PM) Globulin [2.7-4.2 g/dL] 3.4 g/dL (10/20/16 9:35 PM) A/G Ratio [0.7-1.6] 1.1 (10/20/16 9:35 PM) Calcium Lvl [8.5-10.5 mg/dL] 8.6 mg/dL (10/20/16 9:35 PM) ALT [0-65 unit/L] 20 unit/L (10/20/16 9:35 PM) AST [0-37 unit/L] 11 unit/L (10/20/16 9:35 PM) Alk Phos [39-136 unit/L] 48 unit/L (10/20/16 9:35 PM) Bili Total [0.2-1.3 mg/dL] <0.1 mg/dL *LOW* (10/20/16 9:35 PM) Lipase Lvl [73-393 unit/L] 299 unit/L (10/20/16 9:35 PM) 1Result Comment: The eGFR is calculated [...] Range]: 1 S Preg [Negative] Negative *NA* (10/20/16 9:35 PM) URINE AND STOOL Most recent to oldest [Reference Range]: 1 UA Turbidity [Clear] Marked *ABN* (10/20/16 9:35 PM) UA Color [Yellow] Yellow *NA* (10/20/16 9:35 PM) UA pH [5.0-8.0] 6.0 (10/20/16 9:35 PM) UA Spec Grav [<=1.030] 1.019 (10/20/16 9:35 PM) UA Glucose [Negative mg/dL] Negative mg/dL *NA* (10/20/16 9:35 PM) UA Blood [Negative] Moderate *ABN* (10/20/16 9:35 PM) UA Ketones [Negative mg/dL] Negative mg/dL *NA* (10/20/16 9:35 PM) UA Protein [Negative mg/dL] Negative mg/dL (10/20/16 9:35 PM) UA Urobilinogen [0.1-1.0 mg/dL] <=1.0 mg/dL *NA* (10/20/16 9:35 PM) UA Bili [Negative] Negative *NA* (10/20/16 9:35 PM) UA Leuk Est [Negative] Moderate *ABN* (10/20/16 9:35 PM) UA Nitrite [Negative] Negative (10/20/16 9:35 PM) UA WBC [0-5 /HPF] 6 /HPF *HI* (10/20/16 9:35 PM) UA RBC [0-2 /HPF] 8 /HPF *HI* (10/20/16 9:35 PM) UA Sq Epi [Few /LPF] Many /LPF *ABN* (10/20/16 9:35 PM) UA Mucus [None Seen /LPF] Few /LPF *NA* (10/20/16 9:35 PM) HEMATOLOGY Most recent to oldest [Reference Range]: 1 WBC [3.7-10.4 K/CMM] 5.5 K/CMM (10/20/16 9:35 PM) RBC [4.20-5.40 M/CMM] 4.39 M/CMM (10/20/16 9:35 PM) Hgb [12.0-16.0 g/dL] 13.3 g/dL (10/20/16 9:35 PM) Hct [36.0-48.0 %] 39.8 % (10/20/16 9:35 PM) MCV [80.0-98.0 fL] 90.7 fL (10/20/16 9:35 PM) MCH [27.0-31.0 pg] 30.2 pg (10/20/16 9:35 PM) MCHC [32.0-36.0 g/dL] 33.3 g/dL (10/20/16 9:35 PM) RDW [11.5-14.5 %] 11.7 % (10/20/16 9:35 PM) Platelet [133-450 K/CMM] 273 K/CMM (10/20/16 9:35 PM) MPV [7.4-10.4 fL] 8.6 fL (10/20/16 9:35 PM) Segs [45.0-75.0 %] 50.7 % (10/20/16 9:35 PM) Lymphocytes [20.0-40.0 %] 38.3 % (10/20/16 9:35 PM) Monocytes [2.0-12.0 %] 6.8 % (10/20/16 9:35 PM) Eosinophils [0.0-4.0 %] 3.6 % (10/20/16 9:35 PM) Basophils [0.0-1.0 %] 0.6 % (10/20/16 9:35 PM) Segs-Bands # [1.5-8.1 K/CMM] 2.8 K/CMM (10/20/16 9:35 PM) Lymphocytes # [1.0-5.5 K/CMM] 2.1 K/CMM (10/20/16 9:35 PM) Monocytes # [0.0-0.8 K/CMM] 0.4 K/CMM (10/20/16 9:35 PM) Eosinophils # [0.0-0.5 K/CMM] 0.2 K/CMM (10/20/16 9:35 PM) Immunizations No data available for this [...]
--- OUTSIDE RECORDS SUMMARY | 2018-05-04 10:32 | XMS REPORT | Summary of Care ---
:1980 Author Organization [facility] [place] Address [address] [place], [place] [address]- Encounter HQ Mauricio_eneida(FIN) [id number] Date(s): 10/15/16 - 10/15/16 [facility] [place] [address] [place] [address]- [phone] Discharge Disposition: Left Without Being Seen Attending Physician: Hoang Zimmer DO Vital Signs Most recent to oldest [Reference Range]: 1 Height 165.1 cm (10/15/16 10:31 AM) Temperature Oral [96.4-99.1 DegF] 98 DegF (10/15/16 10:31 AM) Blood Pressure [90-140/60-90 mmHg] 149/101 mmHg *HI* (10/15/16 10:31 AM) Respiratory Rate [14-20 BRMIN] 16 BRMIN (10/15/16 10:31 AM) Peripheral Pulse Rate [60-100 bpm] 85 bpm (10/15/16 10:31 AM) Weight 81.818 kg (10/15/16 10:31 AM) Body Mass Index 30.02 m2 (10/15/16 10:31 AM) Problem List Condition Effective Dates Status Health Status Informant Appendicitis(Confirmed) Resolved delivery(Confirmed) Resolved Hemorrhoids(Confirmed) Active Tonsillitis(Confirmed) Resolved Allergies, Adverse Reactions, Alerts Substance Reaction Severity Status NKDA Active Medications No data available for this section [...]
--- OUTSIDE RECORDS SUMMARY | 2018-05-04 10:32 | XMS REPORT | Summary of Care ---
:1980 Author Organization [facility] Address [address] [place] [id number]- Encounter HQ Radha(FIN) [id number] Date(s): 10/30/16 - 10/31/[address] [address]- Discharge Diagnosis: Acute right flank pain Discharge Diagnosis: Complicated UTI (urinary tract infection) Discharge Diagnosis: Bilateral kidney stones Discharge Disposition: Home or Self Care Attending Physician: Luis Wilson MD Vital Signs Most recent to oldest [Reference Range]: 1 2 Temperature Oral [96.4-99.1 DegF] 98.7 DegF 98.9 DegF (10/31/16 1:09 AM) (10/30/16 9:39 PM) Blood Pressure [90-140/60-90 mmHg] 154/74 mmHg 168/108 mmHg *HI* *HI* (10/31/16 1:09 AM) (10/30/16 9:39 PM) Respiratory Rate [14-20 BRMIN] 18 BRMIN 20 BRMIN (10/31/16 1:09 AM) (10/30/16 9:39 PM) Peripheral Pulse Rate [60-100 bpm] 80 bpm 94 bpm (10/31/16 1:09 AM) (10/30/16 9:39 PM) Problem List Condition Effective Dates Status Health Status Informant Appendicitis(Confirmed) Resolved delivery(Confirmed) Resolved Hemorrhoids(Confirmed) Active Tonsillitis(Confirmed) Resolved Allergies, Adverse Reactions, Alerts Substance Reaction Severity Status NKDA Active Medications acetaminophen-codeine #3 1 tab, Route: PO, Drug Form: TAB, Dosing Weight 81.818, kg, ONCE, STAT, Start date: 10/31/16 0:39:00CST, Stop date: 10/31/16 0:39:00 TALKBACK HOST Notes: Do not exceed 4gm/day of acetaminophen. (Same as: Tylenol with Codeine # 3) Start Date: 10/31/16 Stop Date: 10/31/16 Status: CompletedCipro 500 mg oral tablet 500 mg=1 tab, PO, Q12H, X 10 day, # 20 tab, 0 Refill(s), Pharmacy: [facility] [id number] Start Date: 10/31/16 Stop Date: 11/10/16 Status: OrderedketOROLAC 15 mg, Route: IVP, ONCE, Dosing Weight 81.818, kg, Priority: STAT, Start date: 10/30/16 21:59:00 TALKBACK HOST, Stop date: 10/30/16 21:59:00 TALKBACK HOST Start Date: 10/30/16 Stop Date: 10/30/16 Status: Completedmorphine Sulfate 2 mg, Route: IVP, ONCE, Dosing Weight 81.818, kg, Priority: STAT, Start date: 22:50:00 TALKBACK HOST,Stop date: 10/30/16 22:50:00 TALKBACK HOST Start Date: 10/30/16 Stop Date: 10/30/16 Status: Completedondansetron 4 mg, Route: IVP, ONCE, Dosing Weight 81.818, kg, Priority: STAT, Start date: 21:59:00 TALKBACK HOST,Stop date: 10/30/16 21:59:00 TALKBACK HOST Start Date: 10/30/16 Stop Date: 10/30/16 Status: CompletedSaline Flush 0.9% 10 mL, Route: IVP, Drug Form: INJ, Dosing Weight 81.818, kg, PRN, PRN Line Flush , Start date: 10/30/16 21:59:00 TALKBACK HOST, Duration: 30 day, Stop date: 11/29/16 21:58 :00 TALKBACK HOST Notes: (Same as: BD Posiflush) Start Date: 10/30/16 Stop Date: 10/31/16 Status: DiscontinuedSodium Chloride 0.9% (Bolus) IV 1,000 mL, 2,000 ml/hr, Infuse Over: 30 minutes, Route: IV, ONCE, Priority: STAT , Dosing Weight 81.818 kg, Start date: 10/30/16 21:59:00 TALKBACK HOST, Duration: 1 doses or times, Stop date: 10/30/16 21:59:00 TALKBACK HOST Start Date: 10/30/16 Stop Date: 10/30/16 Status: CompletedTylenol with Codeine #3 oral tablet 1 - 2 tab, PO, Q4H, PRN Pain, X 3 day, # 20 tab, 0 Refill(s) Start Date: 10/31/16 Stop Date: 11/03/16 Status: OrderedZofran ODT 8 mg oral tablet, disintegrating 8 mg=1 tab, PO, TID, PRN Nausea and Vomiting, Dissolve tab under tongue, X 4 day , # 10 tab, 0 Refill(s), [id number] Start Date: 10/31/16 Stop Date: 11/04/16 Status: Ordered Results ELECTROLYTES Most recent to oldest [Reference Range]: 1 Sodium Lvl [135-145 mEq/L] 141 mEq/L (10/30/16 10:01 PM) Potassium Lvl [3.5-5.1 mEq/L] 3.4 mEq/L *LOW* (10/30/16 10:01 PM) Chloride Lvl [95-109 mEq/L] 105 mEq/L (10/30/16 10:01 PM) CO2 [24-32 mEq/L] 27 mEq/L (10/30/16 10:01 PM) AGAP [10.0-20.0 mEq/L] 12.4 mEq/L (10/30/16 10:01 PM) CHEM PANEL Most recent to oldest [Reference Range]: 1 Creatinine Lvl [0.50-1.40 mg/dL] 0.72 mg/dL (10/30/16 10:01 PM) eGFR 109 mL/min/1.73m2 1 *NA* (10/30/16 10:01 PM) BUN [7-22 mg/dL] 7 mg/dL (10/30/16 10:01 PM) Glucose Lvl [70-99 mg/dL] 92 mg/dL (10/30/16 10:01 PM) Calcium Lvl [8.5-10.5 mg/dL] 8.5 mg/dL (10/30/16 10:01 PM) 1Result Comment: The eGFR is calculated [...] [Reference Range]: 1 U Preg [Negative] Negative (10/30/16 10:01 PM) URINE AND STOOL Most recent to oldest [Reference Range]: 1 UA Turbidity [Clear] Marked *ABN* (10/30/16 10:01 PM) UA Color [Yellow] Yellow *NA* (10/30/16 10:01 PM) UA pH [5.0-8.0] 5.0 (10/30/16 10:01 PM) UA Spec Grav [<=1.030] 1.028 (10/30/16 10:01 PM) UA Glucose [Negative mg/dL] Negative mg/dL *NA* (10/30/16 10:01 PM) UA Blood [Negative] Negative (10/30/16 10:01 PM) UA Ketones Negative *NA* (10/30/16 10:01 PM) UA Protein [Negative mg/dL] Negative mg/dL (10/30/16 10:01 PM) UA Urobilinogen [0.1-1.0 mg/dL] <=1.0 mg/dL *NA* (10/30/16 10:01 PM) UA Bili [Negative] Negative *NA* (10/30/16 10:01 PM) UA Leuk Est [Negative] Moderate *ABN* (10/30/16 10:01 PM) UA Nitrite [Negative] Negative (10/30/16 10:01 PM) UA WBC [0-5 /HPF] 10 /HPF *HI* (10/30/16 10:01 PM) UA RBC [0-2 /HPF] 30 /HPF *HI* (10/30/16 10:01 PM) UA Bacteria [None Seen /HPF] Occasional /HPF *NA* (10/30/16 10:01 PM) UA Sq Epi [Few /LPF] Many /LPF *ABN* (10/30/16 10:01 PM) UA Mucus [None Seen /LPF] Few /LPF *NA* (10/30/16 10:01 PM) UA [place] Yeast [None Seen /HPF] Occasional /HPF *ABN* (10/30/16 10:01 PM) HEMATOLOGY Most recent to oldest [Reference Range]: 1 WBC [3.7-10.4 K/CMM] 5.3 K/CMM (10/30/16 10:01 PM) RBC [4.20-5.40 M/CMM] 4.25 M/CMM (10/30/16 10:01 PM) Hgb [12.0-16.0 g/dL] 12.9 g/dL (10/30/16 10:01 PM) Hct [36.0-48.0 %] 38.7 % (10/30/16 10:01 PM) MCV [80.0-98.0 fL] 91.2 fL (10/30/16 10:01 PM) MCH [27.0-31.0 pg] 30.5 pg (10/30/16 10:01 PM) MCHC [32.0-36.0 g/dL] 33.4 g/dL (10/30/16 10:01 PM) RDW [11.5-14.5 %] 12.3 % (10/30/16 10:01 PM) Platelet [133-450 K/CMM] 248 K/CMM (10/30/16 10:01 PM) MPV [7.4-10.4 fL] 8.4 fL (10/30/16 10:01 PM) Segs [45.0-75.0 %] 45.9 % (10/30/16 10:01 PM) Lymphocytes [20.0-40.0 %] 40.4 % *HI* (10/30/16 10:01 PM) Monocytes [2.0-12.0 %] 9.2 % (10/30/16 10:01 PM) Eosinophils [0.0-4.0 %] 3.9 % (10/30/16 10:01 PM) Basophils [0.0-1.0 %] 0.6 % (10/30/16 10:01 PM) Segs-Bands # [1.5-8.1 K/CMM] 2.4 K/CMM (10/30/16 10:01 PM) Lymphocytes # [1.0-5.5 K/CMM] 2.1 K/CMM (10/30/16 10:01 PM) Monocytes # [0.0-0.8 K/CMM] 0.5 K/CMM (10/30/16 10:01 PM) Eosinophils # [0.0-0.5 K/CMM] 0.2 K/CMM (10/30/16 10:01 PM) Immunizations No data available for this [...]
--- OUTSIDE RECORDS SUMMARY | 2018-05-04 10:33 | XMS REPORT | Summary of Care ---
:1980 Author Organization [facility] Address [address] [place], [place] [address]- Encounter HQ Madelynr_eneida(FIN) [id number] Date(s): 01/23/17 - 01/27/17 [facility] [address] [place] [address]- Final: Acute pyelonephritis Discharge Disposition: Home or Self Care Attending Physician: Yeni Douglas MD Admitting Physician: Yeni Douglas MD Vital Signs Most recent to oldest 1 2 3 [Reference Range]: Height 165.1 cm 165.1 cm (01/24/17 6:44 AM) (01/23/17 10:40 PM) Temperature Oral [96.4-99.1 98.2 DegF 98.4 DegF 98.3 DegF DegF] (01/27/17 3:44 PM) (01/27/17 11:49 AM) (01/27/17 7:34 AM) Blood Pressure [90-140/60-90 144/100 mmHg 140/102 mmHg 151/109 mmHg mmHg] *HI* (01/27/17 11:49 AM) *HI* (01/27/17 3:44 PM) (01/27/17 10:11 AM) Respiratory Rate [14-20 18 BRMIN 16 BRMIN 16 BRMIN BRMIN] (01/27/17 7:34 AM) (01/27/17 3:34 AM) (01/26/17 11:11 PM) Peripheral Pulse Rate [60-100 94 bpm 105 bpm 92 bpm bpm] (01/27/17 3:44 PM) *HI* (01/27/17 10:11 AM) (01/27/17 11:49 AM) Weight 71.364 kg 71.364 kg (01/24/17 6:44 AM) (01/23/17 10:40 PM) Body Mass Index 26.18 m2 26.18 m2 (01/24/17 6:44 AM) (01/23/17 10:40 PM) Problem List Condition Effective Dates Status Health Status Informant Acute pyelonephritis(Confirmed) Active Appendicitis(Confirmed) Resolved delivery(Confirmed) Resolved Hemorrhoids(Confirmed) Active Tonsillitis(Confirmed) Resolved Allergies, Adverse Reactions, Alerts Substance Reaction Severity Status codeine Codeine Active Codeine Codeine Medications acetaminophen-hydrocodone 325 mg-5 mg oral tablet 2 tab, Route: PO, Drug Form: TAB, Dosing Weight 71.364, kg, Q4H, PRN Pain Score 7-10, Start date: 01/24/17 5:41:00 CDT, Duration: 30 day, Stop date: 02/23/17 5: 40:00 CDT Notes: (Same as: [place] 325/5) Do not exceed 4gm/day of acetaminophen. Start Date: 01/24/17 Stop Date: 01/27/17 Status: Discontinuedatropine 0.5 mg, 5 mL, Route: IVP, Drug form: INJ, PRN, PRN Bradycardia, Start date: 6:30:00 CDT, Duration: 30 day, Stop date: 02/24/17 6:29:00 CDT Start Date: 01/25/17 Stop Date: 01/27/17 Status: DiscontinuedBactrim DS 800 mg- 160 mg oral tablet 1 tab, PO, BID, X 14 day, # 28 tab, 0 Refill(s), Pharmacy: [facility] [id number] Start Date: 01/27/17 Stop Date: 02/10/17 Status: OrderedcefTRIAXone + sodium chloride 0.9% INJ 100 mL 1 gm, Route: IVPB, ONCE, Dosing Weight 71.364, kg, Priority: STAT, Start date: 01/24/17 3:31:00 CDT,Stop date: 01/24/17 3:31:00 CDT Notes: (Same As: Rocephin).Use with 100 mL NS and infuse over 30 min MEDICATION WASTE Product Size: 1000 mgProduct Wasted: ___ mg Start Date: 01/24/17 Stop Date: 01/24/17 Status: Completeddocusate 100 mg, 1 cap, Route: PO, Drug form: CAP, BID, Dosing Weight 71.364, kg, PRN Constipation, Start date: 01/24/17 5:41:00 CDT, Duration: 30 day, Stop date: 5:40:00 CDT Notes: (Same as: Colace) (Do Not Crush) Start Date: 01/24/17 Stop Date: 01/27/17 Status: DiscontinuedhydrALAZINE 10 mg, 0.5 mL, Route: IVP, Drug form: INJ, Q6H, Dosing Weight 71.364, kg, PRN Elevated BP, Start date: 01/25/17 23:11:00 CDT, Duration: 30 day, Stop date: 23:10:00 CDT Notes: (Same as: Apresoline)Push over 5 minutes Start Date: 01/25/17 Stop Date: 01/27/17 Status: Discontinuedmorphine Sulfate 4 mg, Route: IVP, ONCE, Dosing Weight 71.364, kg, Priority: STAT, Start date: 2:29:00 CDT, Stop date: 01/24/17 2:29:00 CDT Start Date: 01/24/17 Stop Date: 01/24/17 Status: Completedmorphine Sulfate 4 mg, 1 mL, Route: IVP, Drug form: SOLN, ONCE, Dosing Weight 71.364, kg, Priority: STAT, Start date:01/24/17 4:56:00 CDT, Stop date: 01/24/17 4:56:00 CDT Notes: (Same as:MORPhine Sulfate) Start Date: 01/24/17 Stop Date: 01/24/17 Status: Completedmorphine Sulfate 2 mg, 1 mL, Route: IVP, Drug form: INJ, Q4H, Dosing Weight 71.364, kg, PRN Pain Score 7-10, Start date: 01/24/17 5:41:00 CDT, Duration: 30 day, Stop date: 02/23 5:40:00 CDT Notes: (Same as:MORPhine Sulfate) Start Date: 01/24/17 Stop Date: 01/27/17 Status: Discontinuednitroglycerin 0.4 mg sublingual tablet 0.4 mg, 1 tab, Route: SL, Drug form: TAB, Q5Min, PRN Chest Pain, Start date: 6:30:00 CDT, Duration: 30 day, Stop date: 02/24/17 6:29:00 CDT Notes: (Same as:Nitroquick, Nitrostat)"Do Not Crush" Sublingual tablet Start Date: 01/25/17 Stop Date: 01/27/17 Status: DiscontinuedNorvasc 5 mg, 1 tab, Route: PO, Drug form: TAB, Daily, Dosing Weight 71.364, kg, Priority: NOW, Start date: 01/27/17 10:31:00 CDT, Duration: 30 day, Stop date: 02/26/17 9:00:00 CDT Notes: (Same as: Norvasc) Start Date: 01/27/17 Stop Date: 01/27/17 Status: Discontinuedondansetron 4 mg, Route: IVP, Drug form: INJ, ONCE, Dosing Weight 71.364, kg, Priority: STAT , Start date: 01/24/17 2:29:00 CDT, Stop date: 01/24/17 2:29:00 CDT Start Date: 01/24/17 Stop Date: 01/24/17 Status: Completedondansetron 4 mg, 2 mL, Route: IVP, Drug form: INJ, Q6H, Dosing Weight 71.364, kg, PRN Nausea & Vomiting, Start date: 01/24/17 5:41:00 CDT, Duration: 30 day, Stop date: 02/23/17 5:40:00 CDT Notes: (Same as: Zofran) MEDICATION WASTE Product Size: 4 mgProduct Wasted: ___ mg Start Date: 01/24/17 Stop Date: 01/27/17 Status: DiscontinuedPepcid 20 mg, 1 tab, Route: PO, Drug form: TAB, BID, Dosing Weight 71.364, kg, Start date: 01/24/17 17:00:00 CDT, Duration: 30 day, Stop date: 02/23/17 9:00:00 CDT Notes: (Same as: Pepcid) Start Date: 01/24/17 Stop Date: 01/27/17 Status: DiscontinuedPHOS-NaK 1 pkt, Route: PO, Drug Form: PDR/REC, Dosing Weight 71.364, kg, TID-Before Meals , Start date: 01/25/17 23:30:00 CDT, Stop date: 01/26/17 23:30:00 CDT Notes: (Same as: Phos-NaK) Each 1.5 gm pkt has 250mg phosphorous. Mix w/2.5oz water and stir. Start Date: 01/25/17 Stop Date: 01/26/17 Status: CompletedProtonix 40 mg, 1 tab, Route: PO, Drug form: ECTAB, Before Breakfast, Dosing Weight 71.364, kg, Start date: 01/26/17 7:30:00 CDT, Duration: 30 day, Stop date: 02/24 7:30:00 CDT Notes: Tablet should not be chewed or crushed.(Same as: Protonix) Start Date: 01/26/17 Stop Date: 01/27/17 Status: DiscontinuedRocephin + sodium chloride 0.9% INJ 100 mL 1 gm, Route: IVPB, ASRU25V, Dosing Weight 71.364, kg, Start date: 01/25/17 5:00: 00 CDT, Duration: 30day, Stop date: 02/23/17 5:00:00 CDT Notes: (Same As: Rocephin).Use with 100 mL NS and infuse over 30 min MEDICATION WASTE Product Size: 1000 mgProduct Wasted: ___ mg Start Date: 01/25/17 Stop Date: 01/27/17 Status: DiscontinuedSaline Flush 0.9% 10 ml, Route: IVP, Drug Form: INJ, Dosing Weight 71.364, kg, PRN, PRN Line Flush , Start date: 01/24/17 5:41:00 CDT, Duration: 30 day, Stop date: 02/23/17 5:40: 00 CDT Notes: (Same as: BD Posiflush) Start Date: 01/24/17 Stop Date: 01/27/17 Status: DiscontinuedSodium Chloride 0.9% (Bolus) IV 1,000 mL, Infuse Over: 1 hr, Route: IV, ONCE, Priority: STAT, Dosing Weight 71.364 kg, Start date: 01/24/17 2:29:00 CDT, Duration: 1 doses or times, Stop date: 01/24/17 2:29:00 CDT Start Date: 01/24/17 Stop Date: 01/24/17 Status: Completedsodium chloride 0.9% 1000 ml INJ 1,000 mL 1,000 mL, Rate: 75 ml/hr, Infuse over: 13.3 hr, Route: IV, Dosing Weight 71.364 kg, Total Volume: 1,000, Start date: 01/25/17 23:09:00 CDT, Duration: 30 day, Stop date: 02/24/17 23:08:00 CDT Start Date: 01/25/17 Stop Date: 01/27/17 Status: Discontinuedsodium chloride 0.9% 1000 ml INJ 1,000 mL 1,000 mL, Rate: 125 ml/hr, Infuse over: 8 hr, Route: IV, Dosing Weight 71.364 kg , Total Volume: 1,000, Start date: 01/24/17 5:41:00 CDT, Duration: 30 day, Stop date: 02/23/17 5:40:00 CDT Start Date: 01/24/17 Stop Date: 01/25/17 Status: DiscontinuedUltram ER 100 mg oral tablet, extended release 100 mg=1 tab, PO, Daily, # 30 tab, 0 Refill(s) Start Date: 01/27/17 Status: Ordered Results ELECTROLYTES Most recent to oldest 1 2 3 [Reference Range]: Sodium Lvl [135-145 mEq/L] 142 mEq/L 140 mEq/L 140 mEq/L (01/26/17 5:32 AM) (01/25/17 3:11 AM) (01/24/17 2:32 AM) Potassium Lvl [3.5-5.1 3.7 mEq/L 3.7 mEq/L 3.8 mEq/L mEq/L] (01/26/17 5:32 AM) (01/25/17 3:11 AM) (01/24/17 2:32 AM) Chloride Lvl [95-109 mEq/L] 108 mEq/L 109 mEq/L 106 mEq/L (01/26/17 5:32 AM) (01/25/17 3:11 AM) (01/24/17 2:32 AM) CO2 [24-32 mEq/L] 28 mEq/L 25 mEq/L 27 mEq/L (01/26/17 5:32 AM) (01/25/17 3:11 AM) (01/24/17 2:32 AM) AGAP [10.0-20.0 mEq/L] 9.7 mEq/L 9.7 mEq/L 10.8 mEq/L *LOW* *LOW* (01/24/17 2:32 AM) (01/26/17 5:32 AM) (01/25/17 3:11 AM) CHEM PANEL Most recent to oldest 1 2 3 [Reference Range]: Creatinine Lvl [0.50-1.40 0.67 mg/dL 0.57 mg/dL 0.85 mg/dL mg/dL] (01/26/17 5:32 AM) (01/25/17 3:11 AM) (01/24/17 2:32 AM) eGFR 115 mL/min/1.73m2 1 121 mL/min/1.73m2 2 90 mL/min/1.73m2 3 *NA* *NA* *NA* (01/26/17 5:32 AM) (01/25/17 3:11 AM) (01/24/17 2:32 AM) BUN [7-22 mg/dL] 5 mg/dL 14 mg/dL 19 mg/dL *LOW* (01/25/17 3:11 AM) (01/24/17 2:32 AM) (01/26/17 5:32 AM) B/C Ratio [6-25] 7 25 22 (01/26/17 5:32 AM) (01/25/17 3:11 AM) (01/24/17 2:32 AM) Glucose Lvl [70-99 mg/dL] 91 mg/dL 74 mg/dL 82 mg/dL (01/26/17 5:32 AM) (01/25/17 3:11 AM) (01/24/17 2:32 AM) Total Protein [6.4-8.4 6.3 g/dL 5.9 g/dL 6.5 g/dL g/dL] *LOW* *LOW* (01/24/17 12:52 PM) (01/26/17 5:32 AM) (01/25/17 3:11 AM) Albumin Lvl [3.5-5.0 g/dL] 3.2 g/dL 3.1 g/dL 3.6 g/dL *LOW* *LOW* (01/24/17 12:52 PM) (01/26/17 5:32 AM) (01/25/17 3:11 AM) Globulin [2.7-4.2 g/dL] 3.1 g/dL 2.8 g/dL 2.9 g/dL (01/26/17 5:32 AM) (01/25/17 3:11 AM) (01/24/17 12:52 PM) A/G Ratio [0.7-1.6] 1.0 1.1 1.2 (01/26/17 5:32 AM) (01/25/17 3:11 AM) (01/24/17 12:52 PM) Calcium Lvl [8.5-10.5 7.8 mg/dL 7.2 mg/dL 8.3 mg/dL mg/dL] *LOW* *LOW* *LOW* (01/26/17 5:32 AM) (01/25/17 3:11 AM) (01/24/17 2:32 AM) Phosphorus [2.5-4.5 mg/dL] 1.8 mg/dL *LOW* (01/25/17 3:11 AM) Magnesium Lvl [1.8-2.4 1.9 mg/dL mg/dL] (01/25/17 3:11 AM) ALT [0-65 unit/L] 36 unit/L 21 unit/L 21 unit/L (01/26/17 5:32 AM) (01/25/17 3:11 AM) (01/24/17 12:52 PM) AST [0-37 unit/L] 35 unit/L 17 unit/L 16 unit/L (01/26/17 5:32 AM) (01/25/17 3:11 AM) (01/24/17 12:52 PM) Alk Phos [39-136 unit/L] 55 unit/L 44 unit/L 49 unit/L (01/26/17 5:32 AM) (01/25/17 3:11 AM) (01/24/17 12:52 PM) Bili Total [0.2-1.3 mg/dL] 0.6 mg/dL 0.8 mg/dL 0.8 mg/dL (01/26/17 5:32 AM) (01/25/17 3:11 AM) (01/24/17 12:52 PM) Bili Direct [0.0-0.3 mg/dL] 0.1 mg/dL (01/24/17 12:52 PM) Bili Indirect [0.0-1.0 0.7 mg/dL mg/dL] (01/24/17 12:52 PM) Lipase Lvl [73-393 unit/L] 127 unit/L (01/24/17 2:32 AM) 1Result Comment: The eGFR is calculated [...] should be multiplied by the estimated BMI.URINE AND STOOL Most recent to oldest [Reference Range]: 1 2 3 UA Turbidity [Clear] Marked *ABN* (01/24/17 2:32 AM) UA Color Red *NA* (01/24/17 2:32 AM) UA pH [5.0-8.0] 5.0 (01/24/17 2:32 AM) UA Spec Grav [<=1.030] 1.034 *HI* (01/24/17 2:32 AM) UA Glucose [Negative mg/dL] Negative mg/dL *NA* (01/24/17 2:32 AM) UA Blood [Negative] Large *ABN* (01/24/17 2:32 AM) UA Ketones [Negative mg/dL] Negative mg/dL *NA* (01/24/17 2:32 AM) UA Protein [Negative mg/dL] 30 mg/dL *ABN* (01/24/17 2:32 AM) UA Urobilinogen [0.1-1.0 mg/dL] 2.0 mg/dL *HI* (01/24/17 2:32 AM) UA Bili [Negative] Negative *NA* (01/24/17 2:32 AM) UA Leuk Est [Negative] Negative (01/24/17 2:32 AM) UA Nitrite [Negative] Positive *ABN* (01/24/17 2:32 AM) UA WBC [0-5 /HPF] 4 /HPF (01/24/17 2:32 AM) UA RBC [0-2 /HPF] >182 /HPF *HI* (01/24/17 2:32 AM) UA Sq Epi [Few /LPF] Many /LPF *ABN* (01/24/17 2:32 AM) UA Mucus [None Seen /LPF] Few /LPF *NA* (01/24/17 2:32 AM) HEMATOLOGY Most recent to oldest 1 2 3 [Reference Range]: WBC [3.7-10.4 K/CMM] 5.4 K/CMM 7.2 K/CMM 9.1 K/CMM (01/26/17 5:32 AM) (01/25/17 3:11 AM) (01/24/17 2:32 AM) RBC [4.20-5.40 M/CMM] 3.90 M/CMM 3.58 M/CMM 4.16 M/CMM *LOW* *LOW* *LOW* (01/26/17 5:32 AM) (01/25/17 3:11 AM) (01/24/17 2:32 AM) Hgb [12.0-16.0 g/dL] 12.0 g/dL 10.9 g/dL 12.8 g/dL (01/26/17 5:32 AM) *LOW* (01/24/17 2:32 AM) (01/25/17 3:11 AM) Hct [36.0-48.0 %] 35.0 % 33.1 % 37.9 % *LOW* *LOW* (01/24/17 2:32 AM) (01/26/17 5:32 AM) (01/25/17 3:11 AM) MCV [80.0-98.0 fL] 89.8 fL 92.5 fL 91.1 fL (01/26/17 5:32 AM) (01/25/17 3:11 AM) (01/24/17 2:32 AM) MCH [27.0-31.0 pg] 30.7 pg 30.6 pg 30.8 pg (01/26/17 5:32 AM) (01/25/17 3:11 AM) (01/24/17 2:32 AM) MCHC [32.0-36.0 g/dL] 34.2 g/dL 33.1 g/dL 33.8 g/dL (01/26/17 5:32 AM) (01/25/17 3:11 AM) (01/24/17 2:32 AM) RDW [11.5-14.5 %] 12.1 % 12.3 % 12.6 % (01/26/17 5:32 AM) (01/25/17 3:11 AM) (01/24/17 2:32 AM) Platelet [133-450 K/CMM] 246 K/CMM 209 K/CMM 249 K/CMM (01/26/17 5:32 AM) (01/25/17 3:11 AM) (01/24/17 2:32 AM) MPV [7.4-10.4 fL] 7.4 fL 7.8 fL 8.2 fL (01/26/17 5:32 AM) (01/25/17 3:11 AM) (01/24/17 2:32 AM) Segs [45.0-75.0 %] 66.9 % 64.1 % 67.8 % (01/26/17 5:32 AM) (01/25/17 3:11 AM) (01/24/17 2:32 AM) Lymphocytes [20.0-40.0 %] 21.5 % 26.5 % 22.5 % (01/26/17 5:32 AM) (01/25/17 3:11 AM) (01/24/17 2:32 AM) Monocytes [2.0-12.0 %] 7.9 % 6.8 % 6.8 % (01/26/17 5:32 AM) (01/25/17 3:11 AM) (01/24/17 2:32 AM) Eosinophils [0.0-4.0 %] 3.0 % 2.3 % 2.5 % (01/26/17 5:32 AM) (01/25/17 3:11 AM) (01/24/17 2:32 AM) Basophils [0.0-1.0 %] 0.7 % 0.3 % 0.4 % (01/26/17 5:32 AM) (01/25/17 3:11 AM) (01/24/17 2:32 AM) Segs-Bands # [1.5-8.1 K/CMM] 3.6 K/CMM 4.6 K/CMM 6.2 K/CMM (01/26/17 5:32 AM) (01/25/17 3:11 AM) (01/24/17 2:32 AM) Lymphocytes # [1.0-5.5 1.2 K/CMM 1.9 K/CMM 2.0 K/CMM K/CMM] (01/26/17 5:32 AM) (01/25/17 3:11 AM) (01/24/17 2:32 AM) Monocytes # [0.0-0.8 K/CMM] 0.4 K/CMM 0.5 K/CMM 0.6 K/CMM (01/26/17 5:32 AM) (01/25/17 3:11 AM) (01/24/17 2:32 AM) Eosinophils # [0.0-0.5 0.2 K/CMM 0.2 K/CMM 0.2 K/CMM K/CMM] (01/26/17 5:32 AM) (01/25/17 3:11 AM) (01/24/17 2:32 AM) PT [12.0-14.7 seconds] 12.7 seconds (01/24/17 2:32 AM) INR [0.85-1.17] 0.93 (01/24/17 2:32 AM) PTT [22.9-35.8 seconds] 32.9 seconds (01/24/17 2:32 AM) Immunizations No data available for this [...] Clinical Document Author: Yeni Douglas MD Date: 01/27/17 [facility]PC Daily Progress Note [facility] Yeni Douglas MD SUBJECTIVE: pt seen and examined, events noted OBJECTIVE: Vitals and Temp: Vitals Tmp(F) Pulse BP RR SpO2 FIO2 01/27 11:49 98.4 105 140/102 -- --- --- 01/27 10:11 ---- 92 151/109 -- --- --- 01/27 07:34 98.3 101 147/108 18 --- --- 01/27 03:34 98.4 80 144/99 16 --- --- 01/27 02:24 ---- --- 136/96 -- --- --- 24 Hr Tmax: 98.5F (36.94c) at 01/26 15:36 Vital Signs are the last 5 in the past 48 hours. Labs (Last four charted values) WBC 5.4 (JAN 26) 7.2 (JAN 25) 9.1 (JAN 24) Hgb 12.0 (JAN 26) L 10.9 (JAN 25) 12.8 (JAN 24) Hct L 35.0 (JAN 26) L 33.1 (JAN 25) 37.9 (JAN 17) Plt 246 (JAN 26) 209 (JAN 18) 249 (JAN 24) Na 142 (JAN 26) 140 (JAN 18) 140 (JAN 24) K 3.7 (JAN 26) 3.7 (JAN 18) 3.8 (JAN 24) CO2 28 (JAN 26) 25 (JAN 18) 27 (JAN 17) Cl 108 (JAN 26) 109 (JAN 18) 106 (JAN 17) Cr 0.67 (JAN 26) 0.57 (JAN 18) 0.85 (JAN 17) BUN L 5 (JAN 26) 14 (JAN 25) 19 (JAN 24) Glucose Random 91 (JAN 26) 74 (JAN 18) 82 (JAN 17) Mg 1.9 (JAN 25) Phos L 1.8 (JAN 25) Ca L 7.8 (JAN 26) L 7.2 (JAN 25) L 8.3 (JAN 24) PT 12.7 (JAN 24) INR 0.93 (JAN 24) PTT 32.9 (JAN 24) ASSESSMENT & EXAM: General: in no apparent [...] No motor deficit. DIAGNOSES & PROBLEMS: 1. Acute urinary tract infection with gross hematuria 2. Left renal calculus, nonobstructive. 3. Transient elevation of total bilirubin PLAN & TREATMENT: No intervention indicated at this time of the stone per urology monitor lfts pain control dc planning MEDICATIONS Scheduled Meds (4):amLODIPine (Norvasc), cefTRIAXone + sodium chloride 0.9% INJ 100 mL (Rocephin + sodium chloride 0.9% INJ 100 mL), famotidine (Pepcid), pantoprazole (Protonix) Unscheduled Meds: None PRN Meds (8):acetaminophen-hydrocodone (acetaminophen-hydrocodone 325 mg-5 mg oral tablet), atropine, docusate, hydrALAZINE, morphine Sulfate, nitroglycerin ( nitroglycerin 0.4 mg sublingual tablet), ondansetron, sodium chloride (Saline Flush 0.9%) One Time Meds: None Continuous Infusions (1):sodium chloride 0.9% 1000 ml INJ 1,000 mL Extracted from: Title: Urology Author: Bert Marsh MD Date: 01/25/17 Impression and Plan 36F PM stones presents with RUQ, R shoulder, B flank pain with UTI, punctate L renal calculus, hematuria. -UTI - currently on culture sensitive Rocephin. Can transition to Bactrim and DC on 14d therapy -Microhematuria - likely secondary to UTI. Noncontrast CT negative other than punctate stone. Can recheck UA in office in 1mo to ensure resolution of hematuria -Punctate L renal stone - not the etiology of R sided pain. No intervention indicated at this time can discuss further at follow up. -No further Urologic intervention, fu 1 mo. I personally reveiwed the patient's labs and imaging reports, looked at the images themselves, and contacted the consulting physician to discuss the above plan. Bert Marsh MD [facility] Office: [phone]
--- OUTSIDE RECORDS SUMMARY | 2018-05-04 10:33 | XMS REPORT | Summary of Care ---
:1980 Author Organization [facility] Address [address] [place], [place] [address]- Encounter HQ Madelynr_eneida(FIN) [id number] Date(s): 01/22/17 - 01/23/17 [facility] [address] [place] [address]- [phone] Discharge Diagnosis: Pyelonephritis Discharge Disposition: Home or Self Care Attending Physician: Sony Rascon MD Vital Signs Most recent to oldest 1 2 3 [Reference Range]: Height 165.1 cm (01/22/17 9:37 PM) Temperature Oral [96.4-99.1 97.7 DegF 97.9 DegF 98.4 DegF DegF] (01/23/17 5:28 AM) (01/23/17 3:40 AM) (01/23/17 2:02 AM) Blood Pressure [90-140/60-90 122/80 mmHg 129/88 mmHg 130/88 mmHg mmHg] (01/23/17 5:28 AM) (01/23/17 3:40 AM) (01/23/17 2:02 AM) Respiratory Rate [14-20 BRMIN] 18 BRMIN 18 BRMIN 20 BRMIN (01/23/17 5:28 AM) (01/23/17 3:40 AM) (01/23/17 2:02 AM) Peripheral Pulse Rate [60-100 87 bpm 98 bpm 112 bpm bpm] (01/23/17 5:28 AM) (01/23/17 3:40 AM) *HI* (01/23/17 2:02 AM) Weight 71.364 kg (01/22/17 9:37 PM) Body Mass Index 26.18 m2 (01/22/17 9:37 PM) Problem List Condition Effective Dates Status Health Status Informant Acute pyelonephritis(Confirmed) Active Appendicitis(Confirmed) Resolved delivery(Confirmed) Resolved Hemorrhoids(Confirmed) Active Tonsillitis(Confirmed) Resolved Allergies, Adverse Reactions, Alerts Substance Reaction Severity Status codeine Codeine Active Codeine Codeine Medications acetaminophen-hydrocodone 325 mg-10 mg oral tablet 1 tab, Route: PO, Drug Form: TAB, Dosing Weight 71.364, kg, ONCE, STAT, Start date: 01/23/17 4:52:00CDT, Stop date: 01/23/17 4:52:00 CDT Notes: Do not exceed 4gm/day of acetaminophen. (Same as: [place] 325/10) Start Date: 01/23/17 Stop Date: 01/23/17 Status: CompletedcefTRIAXone + sodium chloride 0.9% INJ 100 mL 1 gm, Route: IVPB, ONCE, Dosing Weight 71.364, kg, Priority: STAT, Start date: 01/23/17 3:10:00 CDT,Stop date: 01/23/17 3:10:00 CDT Notes: (Same As: Rocephin).Use with 100 mL NS and infuse over 30 min MEDICATION WASTE Product Size: 1000 mgProduct Wasted: ___ mg Start Date: 01/23/17 Stop Date: 01/23/17 Status: Completedibuprofen 800 mg oral tablet 800 mg=1 tab, PO, Q6H, PRN Fever or Pain, Take with food, X 10 day, # 40 tab, 0 Refill(s) Start Date: 01/23/17 Stop Date: 02/02/17 Status: OrderedKeflex 500 mg oral capsule 500 mg=1 cap, PO, Q8H, X 14 day, # 42 cap, 0 Refill(s) Start Date: 01/23/17 Stop Date: 02/06/17 Status: Orderedmorphine Sulfate 4 mg, 1 mL, Route: IVP, Drug form: SOLN, ONCE, Dosing Weight 71.364, kg, Priority: STAT, Start date:01/22/17 21:41:00 CDT, Stop date: 01/22/17 21:41:00 CDT Notes: (Same as:MORPhine Sulfate) Start Date: 01/22/17 Stop Date: 01/23/17 Status: Completedmorphine Sulfate 4 mg, 1 mL, Route: IVP, Drug form: SOLN, ONCE, Dosing Weight 71.364, kg, Priority: STAT, Start date:01/23/17 3:09:00 CDT, Stop date: 01/23/17 3:09:00 CDT Notes: (Same as:MORPhine Sulfate) Start Date: 01/23/17 Stop Date: 01/23/17 Status: Completedondansetron 4 mg, 2 mL, Route: IVP, Drug form: INJ, ONCE, Dosing Weight 71.364, kg, Priority : STAT, Start date: 01/23/17 3:09:00 CDT, Stop date: 01/23/17 3:09:00 CDT Notes: (Same as: Gosia) MEDICATION WASTE Product Size: 4 mgProduct Wasted: ___ mg Start Date: 01/23/17 Stop Date: 01/23/17 Status: Completedpromethazine 25 mg oral tablet 25 mg=1 tab, PO, Q6H, PRN Nausea/Vomiting, X 3 day, # 12 tab, 0 Refill(s) Start Date: 01/23/17 Stop Date: 01/26/17 Status: OrderedPyridium 200 mg oral tablet 200 mg=1 tab, PO, TID, PRN Dysuria, X 2 day, # 6 tab, 0 Refill(s) Start Date: 01/23/17 Stop Date: 01/25/17 Status: CompletedSodium Chloride 0.9% (Bolus) IV 1,000 mL, 1,000 ml/hr, Infuse Over: 1 hr, Route: IV, 1,000, Drug form: INJ, ONCE , Priority: STAT, Dosing Weight 71.364 kg, Start date: 01/22/17 21:41:00 CDT, Duration: 1 doses or times, Stop date: 01/22/17 21:41:00 CDT Start Date: 01/22/17 Stop Date: 01/23/17 Status: CompletedSodium Chloride 0.9% (Bolus) IV 1,000 mL, 1000 ml/hr, Infuse Over: 1 hr, Route: IV, 1,000, Drug form: INJ, ONCE , Priority: STAT, Dosing Weight 71.364 kg, Start date: 01/23/17 3:09:00 CDT, Duration: 1 doses or times, Stop date: 01/23/17 3:09:00 CDT Start Date: 01/23/17 Stop Date: 01/23/17 Status: CompletedUltram 50 mg oral tablet 50 mg=1 tab, PO, Q6H, PRN pain, X 4 day, # 16 tab, 0 Refill(s) Start Date: 01/23/17 Stop Date: 01/27/17 Status: OrderedZofran 4 mg, 2 mL, Route: IVP, Drug form: INJ, ONCE, Dosing Weight 71.364, kg, Start date: 01/22/17 21:41:00 CDT, Stop date: 01/22/17 21:41:00 CDT Notes: (Same as: Zofran) MEDICATION WASTE Product Size: 4 mgProduct Wasted: ___ mg Start Date: 01/22/17 Stop Date: 01/23/17 Status: Completed Results ELECTROLYTES Most recent to oldest [Reference Range]: 1 Sodium Lvl [135-145 mEq/L] 140 mEq/L (01/22/17 11:05 PM) Potassium Lvl [3.5-5.1 mEq/L] 4.0 mEq/L (01/22/17 11:05 PM) Chloride Lvl [95-109 mEq/L] 105 mEq/L (01/22/17 11:05 PM) CO2 [24-32 mEq/L] 28 mEq/L (01/22/17 11:05 PM) AGAP [10.0-20.0 mEq/L] 11.0 mEq/L (01/22/17 11:05 PM) CHEM PANEL Most recent to oldest [Reference Range]: 1 Creatinine Lvl [0.50-1.40 mg/dL] 0.82 mg/dL (01/22/17 11:05 PM) eGFR 94 mL/min/1.73m2 1 *NA* (01/22/17 11:05 PM) BUN [7-22 mg/dL] 20 mg/dL (01/22/17 11:05 PM) Glucose Lvl [70-99 mg/dL] 94 mg/dL (01/22/17 11:05 PM) Calcium Lvl [8.5-10.5 mg/dL] 8.4 mg/dL *LOW* (01/22/17 11:05 PM) 1Result Comment: The eGFR is calculated [...] [Reference Range]: 1 U Preg [Negative] Negative (01/23/17 12:04 AM) URINE AND STOOL Most recent to oldest [Reference Range]: 1 UA Turbidity [Clear] Marked *ABN* (01/23/17 12:04 AM) UA Color Lizzie *NA* (01/23/17 12:04 AM) UA pH [5.0-8.0] 5.0 (01/23/17 12:04 AM) UA Spec Grav [<=1.030] 1.032 *HI* (01/23/17 12:04 AM) UA Glucose [Negative mg/dL] Negative mg/dL *NA* (01/23/17 12:04 AM) UA Blood [Negative] Negative (01/23/17 12:04 AM) UA Ketones [Negative mg/dL] Negative mg/dL *NA* (01/23/17 12:04 AM) UA Protein [Negative mg/dL] 30 mg/dL *ABN* (01/23/17 12:04 AM) UA Urobilinogen [0.1-1.0 mg/dL] 2.0 mg/dL *HI* (01/23/17 12:04 AM) UA Bili [Negative] Small *ABN* (01/23/17 12:04 AM) UA Leuk Est [Negative] Large *ABN* (01/23/17 12:04 AM) UA Nitrite [Negative] Negative (01/23/17 12:04 AM) UA WBC [0-5 /HPF] 78 /HPF *HI* (01/23/17 12:04 AM) UA RBC [0-2 /HPF] 7 /HPF *HI* (01/23/17 12:04 AM) UA Bacteria [None Seen /HPF] Occasional /HPF *NA* (01/23/17 12:04 AM) UA Sq Epi [Few /LPF] Many /LPF *ABN* (01/23/17 12:04 AM) UA Mucus [None Seen /LPF] Moderate /LPF *ABN* (01/23/17 12:04 AM) HEMATOLOGY Most recent to oldest [Reference Range]: 1 WBC [3.7-10.4 K/CMM] 7.5 K/CMM (01/22/17 11:05 PM) RBC [4.20-5.40 M/CMM] 4.19 M/CMM *LOW* (01/22/17 11:05 PM) Hgb [12.0-16.0 g/dL] 12.8 g/dL (01/22/17 11:05 PM) Hct [36.0-48.0 %] 38.0 % (01/22/17 11:05 PM) MCV [80.0-98.0 fL] 90.7 fL (01/22/17 11:05 PM) MCH [27.0-31.0 pg] 30.6 pg (01/22/17 11:05 PM) MCHC [32.0-36.0 g/dL] 33.8 g/dL (01/22/17 11:05 PM) RDW [11.5-14.5 %] 12.2 % (01/22/17 11:05 PM) Platelet [133-450 K/CMM] 244 K/CMM (01/22/17 11:05 PM) MPV [7.4-10.4 fL] 8.4 fL (01/22/17 11:05 PM) Segs [45.0-75.0 %] 56.4 % (01/22/17 11:05 PM) Lymphocytes [20.0-40.0 %] 31.5 % (01/22/17 11:05 PM) Monocytes [2.0-12.0 %] 8.1 % (01/22/17 11:05 PM) Eosinophils [0.0-4.0 %] 3.3 % (01/22/17 11:05 PM) Basophils [0.0-1.0 %] 0.7 % (01/22/17 11:05 PM) Segs-Bands # [1.5-8.1 K/CMM] 4.2 K/CMM (01/22/17 11:05 PM) Lymphocytes # [1.0-5.5 K/CMM] 2.4 K/CMM (01/22/17 11:05 PM) Monocytes # [0.0-0.8 K/CMM] 0.6 K/CMM (01/22/17 11:05 PM) Eosinophils # [0.0-0.5 K/CMM] 0.2 K/CMM (01/22/17 11:05 PM) Basophils # [0.0-0.2 K/CMM] 0.1 K/CMM (01/22/17 11:05 PM) Immunizations No data available for this [...]
[2018-05-04] MEDS ORDERED: NA CHLORIDE 0.9% 1,000 ML ONE (11:01)
[2018-05-04] MEDS ORDERED: PROMETHAZINE 25 MG/ML VIAL ONE (11:01)
[2018-05-04] MEDS ORDERED: MEPERIDINE HCL 25 MG/0.5 ML ONE ×2 (11:01→13:24)
[2018-05-04 11:04] LABS: Absolute Lymphocytes (CBC) 1.9 K/uL (0.7-4.9); Absolute Monocytes 0.5 K/uL (0.1-1.3); Absolute Neutrophil 4.6 K/uL (1.8-8.0); Basophils % 0.7 % (0-1.3); Eosinophils % 4.6 % (0-4.4); Hematocrit 38.2 % (36.0-45.0); MCH 29.1 pg (27.0-35.0); MCV 86.1 fL (80-100); MPV 8.1 fL (7.6-11.3); Monocytes % 7.1 % (3.3-12.3); RBC Red Blood Cell Count 4.43 M/uL (3.86-4.86)
[2018-05-04 11:15] LABS: Urine Blood TRACE (NEG); Urine Glucose NEGATIVE (NEG); Urine Protein NEGATIVE (NEG); Urine Specific Gravity 1.025 (1.005-1.030)
[2018-05-04 11:32] LABS: ALT/SGPT 16 U/L (12-78); AST/SGOT 12 U/L (15-37); Albumin 3.7 g/dL (3.4-5.0); Alkaline Phosphatase 52 U/L (45-117); BUN Blood Urea Nitrogen 22 mg/dL (7-18); Bicarbonate 28 mmol/L (21-32); Bilirubin Direct < 0.1 mg/dL (0-0.2); Bilirubin Total 0.1 mg/dL (0.2-1.0); Glucose Level 87 mg/dL (74-106); Lipase 632 U/L (73-393); Potassium 3.6 mmol/L (3.5-5.1); Protein, Total 7.1 g/dL (6.4-8.2); Sodium Level 138 mmol/L (136-145)
--- NOTE | 2018-05-04 12:02 | RAD REPORT ---
EXAM DESCRIPTION: CTAbdomen Pelvis W Contrast - 05/04/2018 11:49 am CLINICAL HISTORY: Abdominal pain. iv only;Abd pain COMPARISON: No comparisons TECHNIQUE: Biphasic CT imaging of the abdomen and pelvis was performed with 100 ml non-ionic IV cont rast. All CT scans are performed using dose optimization technique as appropriate and may include automated exposure control or mA/KV adjustment according to patient size. FINDINGS: The lung bases are clear.Deflated right breast implant, partially image. The liver, spleen, pancreas, adrenal glands and kidneys are within normal limits. Cholecystectomy aquiles ear No bowel obstruction, free air, free fluid or abscess. Appendectomy. No evidence of significant lym phadenopathy. No suspicious bony findings. IMPRESSION: No acute intra-abdominal or pelvic finding.
--- NOTE | 2018-05-04 13:17 | EDPHYS ---
Physician Documentation [facility] Name: Dennis Kerr Age: 37 yrs Sex: Female : 1980 Arrival Date: 05/04/2018 Time: 09:59 Bed 19 Private MD: Out, [facility] ED Physician Jean Pierre Lynn HPI: 05/04 10:31 This 37 yrs old Female presents to ER via Ambulatory with complaints of jr8 Abdominal Pain. 10:31 The patient presents with abdominal pain in the right upper quadrant, left flank. jr8 Onset: The symptoms/episode began/occurred acutely, last night. The symptoms do not radiate. Associated signs and symptoms: Pertinent positives: nausea. The symptoms are described as sharp. Modifying factors: The symptoms are alleviated by nothing, the symptoms are aggravated by movement. Severity of pain: At its worst the pain was moderate in the emergency department the pain is unchanged. The patient has not experienced similar symptoms in the past. The patient has not recently seen a physician. cholecystectomy about 1 month ago. Has been doing well. Started to have loose stool and pain to right upper quadrant. Last night had sudden onset left flank/back pain. Now has chills and feels sweaty . 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 - Social history:: Smoking status: Patient/guardian denies using tobacco. - Ebola Screening: : Patient denies travel to an Ebola-affected area in the 21 days before illness onset. ROS: 10:31 Eyes: Negative for injury, pain, redness, and discharge, ENT: Negative for injury, jr8 pain, and discharge, Neck: Negative for injury, pain, and swelling, Cardiovascular: Negative for chest pain, palpitations, and edema, Respiratory: Negative for shortness of breath, cough, wheezing, and pleuritic chest pain, MS/Extremity: Negative for injury and deformity, Skin: Negative for injury, rash, and discoloration, Neuro: Negative for headache, weakness, numbness, tingling, and seizure. 10:31 Abdomen/GI: Positive for abdominal pain, nausea, Negative for vomiting, diarrhea, abdominal distension, anorexia, dysphagia, hematemesis, black/tarry stool, rectal pain, rectal bleeding, bowel incontinence, flatulence. 10:31 Back: Positive for flank pain, on the left. Exam: 10:31 Eyes: Pupils equal round and reactive to light, extra-ocular motions intact. Lids and jr8 lashes normal. Conjunctiva and sclera are non-icteric and not injected. Cornea within normal limits. Periorbital areas with no swelling, redness, or edema. ENT: Nares patent. No nasal discharge, no septal abnormalities noted. Tympanic membranes are normal and external auditory canals are clear. Oropharynx with no redness, swelling, or masses, exudates, or evidence of obstruction, uvula midline. Mucous membranes moist. Neck: Trachea midline, no thyromegaly or masses palpated, and no cervical lymphadenopathy. Supple, full range of motion without nuchal rigidity, or vertebral point tenderness. No Meningismus. Cardiovascular: Regular rate and rhythm with a normal S1 and S2. No gallops, murmurs, or rubs. Normal PMI, no JVD. No pulse deficits. Respiratory: Lungs have equal breath sounds bilaterally, clear to auscultation and percussion. No rales, rhonchi or wheezes noted. No increased work of breathing, no retractions or nasal flaring. Skin: Warm, dry with normal turgor. Normal color with no rashes, no lesions, and no evidence of cellulitis. MS/ Extremity: Pulses equal, no cyanosis. Neurovascular intact. Full, normal range of motion. Neuro: Awake and alert, GCS 15, oriented to person, place, time, and situation. Cranial nerves II-XII grossly intact. Motor strength 5/5 in all extremities. Sensory grossly intact. Cerebellar exam normal. Normal gait. 10:31 Abdomen/GI: Inspection: abdomen appears normal, scar(s), are noted in the umbilical area, right upper quadrant, right lower quadrant and left lower quadrant, Bowel sounds: active, all quadrants, Palpation: soft, in all quadrants, mild abdominal tenderness, in the right upper quadrant, mass, is not appreciated, rebound tenderness, is not appreciated, voluntary guarding, is not appreciated, involuntary guarding, is not appreciated, no appreciated organomegaly, Indicators: McBurney's point is not tender, Baker's sign is negative, Rovsing's sign is negative. 10:31 Back: pain, that is moderate, of the left flank, ROM is normal, normal spinal alignment noted, CVA tenderness, that is mild, is noted on the left, muscle spasm, is not present. Vital Signs: 10:13 BP 148 / 107; Pulse 108; Resp 18; Temp 98.0(O); Pulse Ox 100% on R/A; Weight 83.91 kg; aj1 Height 5 ft. 5 in. (165.10 cm); Pain 8/10; 11:27 BP 131 / 102; Pulse 87; Resp 17; Pulse Ox 100% on R/A; mh5 12:05 Pain 8/10; mh5 12:48 BP 137 / 104; Pulse 96; Resp 17; Pulse Ox 100% on R/A; 5 13:30 BP 132 / 92; Pulse 87; Resp 16; Pulse Ox 99% ; aj1 14:30 BP 127 / 102; Pulse 91; Resp 15; Pulse Ox 97% ; aj1 15:30 BP 130 / 97; Pulse 82; Resp 14; Pulse Ox 99% ; 1 16:29 BP 122 / 95; Pulse 85; Resp 18; Pulse Ox 95% on R/A; aj1 10:13 Body Mass Index 30.79 (83.91 kg, 165.10 cm) [facility] MDM: 10:20 Patient medically screened. [facility] 13:13 Data reviewed: vital signs, nurses notes, lab test result(s), radiologic studies, CT jr scan, and as a result, I will admit patient. Data interpreted: Pulse oximetry: on room air is 100 %. Interpretation: normal. Counseling: I had a detailed discussion with the patient and/or guardian regarding: the historical points, exam findings, and any diagnostic results supporting the discharge/admit diagnosis, lab results, radiology results, the need for further work-up and treatment in the hospital. Physician consultation: Jony Olvera DO was called at 13:13, was contacted at 13:13, regarding admission, to the medical/surgical unit. consult, patient's condition, and will see patient. 05/04 10:30 Order name: Basic Metabolic Panel; Complete Time: 11: [facility] 05/04 10:30 Order name: CBC with Diff; Complete Time: 11: [facility] 05/04 10:30 Order name: Creatinine for Radiology; Complete Time: [facility] 05/04 10:30 Order name: Hepatic Function; Complete Time: : [facility] 05/04 10:30 Order name: Lipase; Complete Time: 11:53 [facility] 05/04 10:47 Order name: Urine Dipstick--Ancillary (enter results); Complete Time: 11: 05/04 10:30 Order name: CT Abd/Pelvis - W/Contrast; Complete Time: 12: [facility] 05/04 10:47 Order name: Urine --Ancillary (enter results); Complete Time: 11: 05/04 13:42 Order name: Cholangiogram; Complete Time: 14:50 [facility] 05/04 10:30 Order name: Urine Test (obtain specimen); Complete Time: 11: [facility] 05/04 10:30 Order name: IV Saline Lock; Complete Time: 11: [facility] 05/04 10:30 Order name: Labs collected and sent; Complete Time: 11: [facility] 05/04 10:30 Order name: Urine Dipstick-Ancillary (obtain specimen); Complete Time: 11: [facility] 05/04 13:42 Order name: CONS Physician Consult [facility] 05/04 13:42 Order name: NPO [facility] Administered Medications: 11:24 Drug: NS 0.9% 1000 ml Route: IV; Rate: 1000 ml; Site: left antecubital; aj1 16:40 Follow up: IV Status: Completed infusion; IV Intake: 1000ml aj1 11:24 Drug: Demerol 25 mg Route: IVP; Site: left antecubital; aj1 16:41 Follow up: Response: No adverse reaction aj1 11:24 Drug: Phenergan 12.5 mg Route: IVP; Site: left antecubital; aj1 16:41 Follow up: Response: No adverse reaction aj1 13:25 Drug: Demerol 25 mg Route: IVP; Site: right antecubital; aj1 16:41 Follow up: Response: No adverse reaction aj1 16:17 Drug: Demerol 50 mg Route: IVP; Site: right antecubital; aj1 16:41 Follow up: Response: No adverse reaction aj1 Disposition: 05/05 06:54 Co-signature as Attending Physician, Jean Pierre Lynn MD I agree with the assessment and gabbie plan of care. Disposition: 05/04/18 13:16 Hospitalization ordered by Jony Olvera for Inpatient Admission. Preliminary diagnosis are Gallstone pancreatitis , Abdominal and pelvic pain. - Bed requested for Telemetry/MedSurg (Inpatient). - Status is Inpatient Admission. aj - Condition is Stable. - Problem is new. - Symptoms have improved. UTI on Admission? No Signatures: Dispatcher [employer] EDAR Brittany oLpez Angela, RN RN aj Jean Pierre Lynn MD MD cha Roszak, Josh, PA PA jr8 Corrections: (The following items were deleted from the chart) 05/04 13:46 13:17 Cholangiogram ordered. EDAR EDAR 15:55 13:16 Hospitalization Ordered by Jony Olvera DO for Inpatient Admission. Preliminary bd diagnosis is Gallstone pancreatitis ; Abdominal and pelvic pain. Bed requested for Telemetry/MedSurg (Inpatient). Status is Inpatient Admission. Condition is Stable. Problem is new. Symptoms have improved. UTI on Admission? No. jr8 17:22 15:55 05/04/2018 13:16 Hospitalization Ordered by Jony Olvera DO for Inpatient [facility] Admission. Preliminary diagnosis is Gallstone pancreatitis ; Abdominal and pelvic pain. Bed requested for Telemetry/MedSurg (Inpatient). Status is Inpatient Admission. Condition is Stable. Problem is new. Symptoms have improved. UTI on Admission? No. bd
--- NOTE | 2018-05-04 13:17 | ER ---
Nurse's Notes [facility] Name: Dennis Kerr Age: 37 yrs Sex: Female : 1980 Arrival Date: 05/04/2018 Time: 09:59 Bed 19 Private MD: Out, [facility] Diagnosis: Gallstone pancreatitis ;Abdominal and pelvic pain Presentation: 05/04 10:14 Presenting complaint: Patient states: lower right quadrant abdominal pain, left low aj1 back pain cramping, diarrhea, nausea, indigestion, bloating and chills since Friday. Denies vomiting. Reports that she had her gallbladder taken out a month and a half ago, but she has not has any issues since the surgery until the pain began. Transition of care: patient was not received from another setting of care. Onset of symptoms was May 01, 2018. Risk Assessment: Do you want to hurt yourself or someone else? Patient reports no desire to harm self or others. Initial Sepsis Screen: Does the patient meet any 2 criteria? No. Patient's initial sepsis screen is negative. Does the patient have a suspected source of infection? No. Patient's initial sepsis screen is negative. Care prior to arrival: None. 10:14 Method Of Arrival: Ambulatory aj1 10:14 Acuity: JEN 3 aj1 Triage Assessment: 10:16 General: Appears in no apparent distress. uncomfortable, Behavior is calm, cooperative, aj1 appropriate for age. Pain: Complains of pain in left low back and right lower quadrant Pain does not radiate. Pain currently is 8 out of 10 on a pain scale. Quality of pain is described as crampy, Pain began 4 days ago. GI: Abdomen is non-distended. 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 - Social history:: Smoking status: Patient/guardian denies using tobacco. - Ebola Screening: : Patient denies travel to an Ebola-affected area in the 21 days before illness onset. Screenin:20 Abuse screen: Denies threats or abuse. Denies injuries from another. Nutritional aj1 screening: No deficits noted. Tuberculosis screening: No symptoms or risk factors identified. 16:40 Fall Risk None identified. aj1 Assessment: 10:18 General: Appears in no apparent distress. uncomfortable, Behavior is calm, cooperative, aj1 appropriate for age. Pain: Complains of pain in right lower quadrant and left low back Pain does not radiate. Pain currently is 8 out of 10 on a pain scale. Quality of pain is described as crampy, Pain began 4 days ago. Neuro: Level of Consciousness is awake, alert, obeys commands, Oriented to person, place, time, situation, Speech is normal, Facial symmetry appears normal. Cardiovascular: Patient's skin is warm and dry. Respiratory: Airway is patent Respiratory effort is even, unlabored, Respiratory pattern is regular, symmetrical. GI: Abdomen is non-distended, Bowel sounds present X 4 quads. Abd is soft X 4 quads Abdomen is tender to palpation in right upper quadrant and right lower quadrant Reports bloating, cramping, diarrhea, indigestion, nausea, Patient currently denies vomiting. : No signs and/or symptoms were reported regarding the genitourinary system. Denies burning with urination, discharge, urinary frequency, urgency. EENT: No signs and/or symptoms were reported regarding the EENT system. Derm: No signs and/or symptoms reported regarding the dermatologic system. Skin is pink, warm \T\ dry. normal. Musculoskeletal: No signs and/or symptoms reported regarding the musculoskeletal system. Circulation, motion, and sensation intact. 11:40 Reassessment: Patient appears in no apparent distress at this time. No changes from aj1 previously documented assessment. Patient and/or family updated on plan of care and expected duration. Pain level reassessed. Patient is alert, oriented x 3, equal unlabored respirations, skin warm/dry/pink. Patient states feeling better. 12:30 Reassessment: Patient and/or family updated on plan of care and expected duration. Pain aj1 level reassessed. General: Appears in no apparent distress. comfortable, Behavior is calm, cooperative, appropriate for age. Neuro: Level of Consciousness is awake, alert, obeys commands, Oriented to person, place, time, situation, Speech is normal, Facial symmetry appears normal. Cardiovascular: Patient's skin is warm and dry. Respiratory: Airway is patent Respiratory effort is even, unlabored, Respiratory pattern is regular, symmetrical. GI: Abdomen is non-distended. Derm: Skin is pink, warm \T\ dry. normal. Musculoskeletal: Circulation, motion, and sensation intact. 13:32 Reassessment: Patient appears in no apparent distress at this time. No changes from aj1 previously documented assessment. Patient and/or family updated on plan of care and expected duration. Pain level reassessed. Patient is alert, oriented x 3, equal unlabored respirations, skin warm/dry/pink. 14:30 Reassessment: Patient and/or family updated on plan of care and expected duration. Pain aj1 level reassessed. General: Appears in no apparent distress. comfortable. Neuro: Level of Consciousness is awake, alert, obeys commands, Oriented to person, place, time, situation, Speech is normal, Facial symmetry appears normal. Cardiovascular: Patient's skin is warm and dry. Respiratory: Airway is patent Respiratory effort is even, unlabored, Respiratory pattern is regular, symmetrical. GI: Abdomen is non-distended, Bowel sounds present X 4 quads. Abd is soft X 4 quads. Derm: Skin is pink, warm \T\ dry. normal. Musculoskeletal: Circulation, motion, and sensation intact. 15:30 Reassessment: Patient appears in no apparent distress at this time. No changes from aj1 previously documented assessment. Patient and/or family updated on plan of care and expected duration. Pain level reassessed. Patient is alert, oriented x 3, equal unlabored respirations, skin warm/dry/pink. 16:00 Reassessment: Patient states that her pain is coming back. Notified SUSANNAH Morton. aj1 Order received. Vital Signs: 10:13 BP 148 / 107; Pulse 108; Resp 18; Temp 98.0(O); Pulse Ox 100% on R/A; Weight 83.91 kg; aj1 Height 5 ft. 5 in. (165.10 cm); Pain 8/10; 11:27 BP 131 / 102; Pulse 87; Resp 17; Pulse Ox 100% on R/A; mh5 12:05 Pain 8/10; mh5 12:48 BP 137 / 104; Pulse 96; Resp 17; Pulse Ox 100% on R/A; mh5 13:30 BP 132 / 92; Pulse 87; Resp 16; Pulse Ox 99% ; aj1 14:30 BP 127 / 102; Pulse 91; Resp 15; Pulse Ox 97% ; aj1 15:30 BP 130 / 97; Pulse 82; Resp 14; Pulse Ox 99% ; aj1 16:29 BP 122 / 95; Pulse 85; Resp 18; Pulse Ox 95% on R/A; aj1 10:13 Body Mass Index 30.79 (83.91 kg, 165.10 cm) aj1 ED Course: 09:59 Patient arrived in ED. sb2 10:00 Out, [facility] is Private Physician. sb2 10:03 Radha Rivas, BELLA is Primary Nurse. aj1 10:16 Triage completed. aj1 10:16 Arm band placed on. aj1 10:20 Timbo Rdoriguez PA is PHCP. jr8 10:20 Jean Pierre Lynn MD is Attending Physician. jr8 10:20 Patient has correct armband on for positive identification. Bed in low position. Call [facility] light in reach. Side rails up X 1. 10:20 No provider procedures requiring assistance completed. aj1 11:21 Radiology exam delayed due to lab results not completed at this time. (BUN/Creatinine). 2 11:23 Initial lab(s) drawn, by pa, sent to lab. Urine collected: clean catch specimen, clear. 5 Inserted saline lock: 22 gauge in right antecubital area, using aseptic technique. Blood collected. 11:24 Patient has correct armband on for positive identification. Bed in low position. Call [facility] light in reach. Side rails up X 1. Warm blanket given. Pulse ox on. NIBP on. 11:25 Basic Metabolic Panel Sent. 5 11:25 Creatinine for Radiology Sent. 5 11:25 Hepatic Function Sent. 5 11:48 CT Abd/Pelvis - W/Contrast In Process Unspecified. EDMS 11:52 CT completed. Patient tolerated procedure well. Patient moved back from CT. vr 13:15 Jony Olvera DO is Hospitalizing Provider. jr8 13:57 Patient moved to MRI via wheelchair. lc 16:39 Report given to BELLA Allred on 2nd floor. aj1 16:39 Patient admitted, IV remains in place. aj1 Administered Medications: 11:24 Drug: NS 0.9% 1000 ml Route: IV; Rate: 1000 ml; Site: left antecubital; aj1 16:40 Follow up: IV Status: Completed infusion; IV Intake: 1000ml aj1 11:24 Drug: Demerol 25 mg Route: IVP; Site: left antecubital; aj1 16:41 Follow up: Response: No adverse reaction aj1 11:24 Drug: Phenergan 12.5 mg Route: IVP; Site: left antecubital; aj1 16:41 Follow up: Response: No adverse reaction aj1 13:25 Drug: Demerol 25 mg Route: IVP; Site: right antecubital; aj1 16:41 Follow up: Response: No adverse reaction aj1 16:17 Drug: Demerol 50 mg Route: IVP; Site: right antecubital; aj1 16:41 Follow up: Response: No adverse reaction aj1 Intake: 16:40 IV: 1000ml; Total: 1000ml. aj1 Outcome: 13:16 Decision to Hospitalize by Provider. jr8 16:40 Admitted to Med/surg accompanied by tech, via wheelchair, with chart. aj1 16:40 Condition: stable 16:40 Discharge instructions given to patient, Instructed on the need for admit, Demonstrated understanding of instructions. 17:22 Patient left the ED. aj1 Signatures: Dispatcher [employer] EDMS Radha Rivas, RN RN aj1 Charu Champion Victoria vr Roszak, Josh, PA PA jr8 Rocío Sheth Victoria vm2 Billeau, Sheri sb2 Corrections: (The following items were deleted from the chart) 10:20 10:14 Presenting complaint: Patient states: lower left quadrant abdominal pain, aj1 cramping, diarrhea, nausea, indigestion, bloating and chills since Friday. Denies vomiting. Reports that she had her gallbladder taken out a month and a half ago, but she has not has any issues since the surgery until the pain began. aj1
[2018-05-04] MEDS ORDERED: ACETAMINOPHEN 500 MG TAB PO PRN (13:36)
[2018-05-04] MEDS ORDERED: SODIUM CHLORIDE 0.9% 10ML INJ IV PRN (13:36)
[2018-05-04] MEDS: NA CHLORIDE 0.9% 1,000 ML IV SCH ×2 (14:00→17:33)
[2018-05-04] MEDS: CIPROFLOXACIN 400mg IV 400 MG/200 ML BAG IV SCH ×3 (14:00→20:04)
[2018-05-04] MEDS ORDERED: METRONIDAZOLE 500mg IVPB 500 MG/100 ML BAG IV SCH ×2 (14:00→17:00)
[2018-05-04] MEDS: ENOXAPARIN 40 MG/0.4 ML SQ SCH ×2 (14:00→17:32)
[2018-05-04] MEDS: PANTOPRAZOLE 40 MG INJ IVP SCH ×2 (14:00→17:32)
--- NOTE | 2018-05-04 14:15 | P.HP ---
Certification for Inpatient Patient admitted to: Inpatient With expected LOS: >2 Midnights Patient will require the following post-hospital care: None Practitioner: I am a practitioner with admitting privileges, knowledge of patient current condition, hospital course, and medical plan of care. Services: Services provided to patient in accordance with Admission requirements found in Title 42 Section 412.3 of the Code of Federal Regulations Patient History Date of Service: 05/04/18 Primary Care Provider: Dr. De La Garza/Dr. Donnelly([place], [place]) Reason for admission: Abdominal pain History of Present Illness: 37-year-old female presented to the ER with abdominal pain. This all started a couple a days ago. It was mainly to the epigastric region. She had nausea but no vomiting with this. It was mainly to the epigastric region and radiated to the right upper quadrant. She rates the pain about a 8/10. She reports mild diarrhea. She had increased bloating. She further reports that 1- 2 months ago she had her gallbladder taken out in [place], [place] at [facility]. She reports having an ERCP at that time. She was told she had 1 stone. Apparently was removed. In the ER she was evaluated. White count 7.4, hemoglobin 12.9. Sodium 138, potassium 3.6. BUN 22 coming creatinine 0.5 with a GFR greater than 90. Total bilirubin 0.1, AST of 12. Lipase was elevated noted. CT scan shows no acute abdominal abnormality. Previous cholecystectomy was noted. Due to nature of the findings the patient was admitted for further evaluation and treatment. When I saw the patient ER, pain was better controlled. Patient also has a history of appendectomy, for prior C-sections. Otherwise she has no major medical issues. Home medications list reviewed: Yes - Past Medical/Surgical History Diabetic: No Past Medical History: Patient denies medical history -: Cholecystectomy, ERCP -: Appendectomy -: x4 -: Knee surgery Psychosocial/ Personal History: The patient is single. She has 4 children. 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 - Family History Father -: Other (see notes) (Intestinal problems requiring colon resection) - Social History Smoking Status: Never smoker Alcohol use: No CD- Drugs: No Caffeine use: Yes Place of Residence: Home Review of Systems General: Weakness, As per HPI Eyes: Unremarkable ENT: Unremarkable Respiratory: Unremarkable Cardiovascular: Unremarkable Gastrointestinal: Nausea, Abdominal Pain, As per HPI Genitourinary: Unremarkable Musculoskeletal: Unremarkable Integumentary: Unremarkable Neurological: Unremarkable Lymphatics: Unremarkable Physical Examination - Physical Exam General: Alert, In no apparent distress, Oriented x3, Cooperative HEENT: Atraumatic, Normocephalic, PERRLA, Mucous membr. moist/pink Neck: Supple, No Thyromegaly Respiratory: Clear to auscultation bilaterally, Normal air movement Cardiovascular: Normal pulses, Regular rate/rhythm Gastrointestinal: Normal bowel sounds, Soft and benign, Non-distended, No masses , No rebound, No guarding, Tenderness (Mild pain to the epigastric and right upper quadrant region) Musculoskeletal: No erythema, No tenderness, No warmth Integumentary: No tenderness/swelling, No erythema, No warmth, No cyanosis Neurological: Normal speech, Normal strength at 5/5 x4 extr, Normal tone, Normal affect Lymphatics: No axilla or inguinal lymphadenopathy - Studies Laboratory Data (last 24 hrs) 05/04/18 10:45: Creatinine 0.50 L 05/04/18 10:45: WBC 7.4, Hgb 12.9, Hct 38.2, Plt Count 322 05/04/18 10:45: Sodium 138, Potassium 3.6, BUN 22 H, Creatinine 0.50 L, Glucose 87, Total Bilirubin 0.1 L, AST 12 L, ALT 16, Alkaline Phosphatase 52, Lipase 632 H Assessment and Plan - Problems (Diagnosis) (1) Abdominal pain Current Visit: Yes Status: Acute Plan: Patient with epigastric and right upper quadrant pain. Gallstone pancreatitis suspected with choledocholithiasis. Patient had cholecystectomy 1 and half months ago. Will order MRCP to further evaluate. GI consulted. Patient may require an ERCP. Will keep the patient NPO. Will continue with IV fluids, antibiotic therapy, and medication. Await further recommendations from GI. Qualifiers: Abdominal location: epigastric Qualified Code(s): R10.13 - Epigastric pain (2) Gallstone pancreatitis Current Visit: Yes Status: Acute Plan: Continue as above. (3) Choledocholithiasis Current Visit: Yes Status: Suspected Plan: Continue as above. (4) History of cholecystectomy Current Visit: Yes Status: Chronic Plan: Continue as above. (5) Nausea Current Visit: Yes Status: Acute Plan: Continue as above. Will provide medication. Discharge Plan: Home Plan to discharge in: 72 Hours - Advance Directives Does patient have a Living Will: No Does patient have a Durable POA for Healthcare: No - Code Status/Comfort Care Code Status Assessed: Yes Time Spent Managing Pts Care (In Minutes): 55
--- NOTE | 2018-05-04 14:38 | RAD REPORT ---
EXAM DESCRIPTION: MRI - Cholangiogram - 05/04/2018 2:28 pm CLINICAL HISTORY: Ab pain, Suspect Gallstone pancreatitis COMPARISON: Abdomen Pelvis W Contrast dated 05/04/2018 FINDINGS: No intrahepatic biliary tree dilatation is seen. The common bile duct is normal caliber wi thout evidence of retained stone, stricture or mass. The pancreatic duct is not pathologically dilate d. The gallbladder is surgically absent. Limited T2 sequences through the abdomen demonstrates no bulky adenopathy, significant free fluid or abscess. Collapsed right breast implant noted. IMPRESSION: Negative MR cholangiogram.
[2018-05-04] MEDS ORDERED: MEPERIDINE HCL 50 MG/ML AMP ONE (16:01)
[2018-05-04] MEDS: MORPHINE 4 MG/ML SYR IV PRN ×3 (17:40→23:31)
[2018-05-04 19:09] VITALS: BMI 30.7
[2018-05-04] MEDS: METRONIDAZOLE 500mg IVPB 500 MG/100 ML BAG IV SCH (19:40)
[2018-05-05] MEDS: NA CHLORIDE 0.9% 1,000 ML IV SCH ×3 (00:53→20:21)
[2018-05-05] MEDS: METRONIDAZOLE 500mg IVPB 500 MG/100 ML BAG IV SCH ×3 (00:53→16:09)
[2018-05-05] MEDS: MORPHINE 4 MG/ML SYR IV PRN ×4 (02:37→16:09)
[2018-05-05 05:24] LABS: Absolute Lymphocytes (CBC) 2.8 K/uL (0.7-4.9); Absolute Monocytes 0.6 K/uL (0.1-1.3); Absolute Neutrophil 3.2 K/uL (1.8-8.0); Basophils % 0.9 % (0-1.3); Eosinophils % 6.7 % (0-4.4); Hematocrit 34.9 % (36.0-45.0); Lymphocytes % 39.5 % (15.3-44.8); MCH 29.4 pg (27.0-35.0); MCV 85.9 fL (80-100); MPV 8.3 fL (7.6-11.3); Monocytes % 8.1 % (3.3-12.3); RBC Red Blood Cell Count 4.06 M/uL (3.86-4.86)
[2018-05-05 05:58] LABS: ALT/SGPT 14 U/L (12-78); AST/SGOT 12 U/L (15-37); Albumin 3.2 g/dL (3.4-5.0); Alkaline Phosphatase 47 U/L (45-117); BUN Blood Urea Nitrogen 15 mg/dL (7-18); Bicarbonate 27 mmol/L (21-32); Bilirubin Total 0.1 mg/dL (0.2-1.0); Glucose Level 81 mg/dL (74-106); HDL Cholesterol 55 mg/dL (40-60); LDL Cholesterol, Calculated 77 (<130); Potassium 3.8 mmol/L (3.5-5.1); Protein, Total 6.2 g/dL (6.4-8.2); Sodium Level 141 mmol/L (136-145); Thyroid Stimulating Hormone 1.99 uIU/mL (0.36-3.74)
[2018-05-05] MEDS: PANTOPRAZOLE 40 MG INJ IVP SCH (06:27)
[2018-05-05] MEDS: ONDANSETRON 4 MG/2 ML VIAL IV PRN ×2 (06:27→20:26)
[2018-05-05] MEDS ORDERED: KCL 20 MEQ/100 mL IVPB 20 MEQ/100 ML BAG IV SCH (07:00)
[2018-05-05 08:53] LABS: Amylase Level 77 U/L (25-115); Lipase 222 U/L (73-393)
[2018-05-05] MEDS: CIPROFLOXACIN 400mg IV 400 MG/200 ML BAG IV SCH ×2 (09:18→20:22)
[2018-05-05] MEDS: ENOXAPARIN 40 MG/0.4 ML SQ SCH (09:19)
--- NOTE | 2018-05-05 10:57 | RAD REPORT ---
EXAM DESCRIPTION: US - Abdomen Exam Complete - 05/05/2018 10:43 am CLINICAL HISTORY: Abdominal pain, pancreatitis, cholecystectomy 1 month earlier COMPARISON: MRCP study May 04, CT study May 04 FINDINGS: Gallbladder is absent. No mass, abscess or other abnormality in the gallbladder fossa. Com mon bile duct is 5 mm, normal range, with no common duct stone identified. The liver and spleen show no suspicious findings. Liver has a slightly coarsened echotexture but no definitive evidence of fatt y infiltration. The pancreas is normal. No hydronephrosis or suspicious mass in either kidney. Cortical thickness and echogenicity are normal . Aorta and IVC show no suspicious findings. No ascites or bulky lymphadenopathy. IMPRESSION: Unremarkable post cholecystectomy abdomen ultrasound.
[2018-05-05] MEDS: KETOROLAC 30 MG/ML INJ IV PRN (11:40)
--- NOTE | 2018-05-05 13:03 | P.PN ---
Subjective Date of Service: 05/05/18 Primary Care Provider: Dr. De La Garza/Dr. Donnelly([place], [place]) Chief Complaint: Abdominal pain Subjective: Other (Patient still reports pain.) Physical Examination - Vital Signs Temperature: 97.6 F Blood Pressure: 121/76 Pulse: 89 Respirations: 20 Pulse Ox (%): 99 - Physical Exam General: Alert, In no apparent distress HEENT: Atraumatic Neck: Supple Respiratory: Clear to auscultation bilaterally, Normal air movement Cardiovascular: Normal pulses, Regular rate/rhythm Gastrointestinal: Normal bowel sounds, Soft and benign, Tenderness (She still reports pain to the epigastric area. ) Musculoskeletal: No tenderness, No warmth Integumentary: No tenderness/swelling, No erythema, No warmth, No cyanosis Neurological: Normal speech, Normal strength at 5/5 x4 extr, Normal tone, Normal affect - Studies Medications List Reviewed: Yes Assessment & Plan - Problems (Diagnosis) (1) Abdominal pain Onset Date: 05/05/18 Current Visit: Yes Status: Acute Plan: Patient with epigastric and right upper quadrant pain. Lipase improved. MRCP unremarkable. Will obtain ABUS. Will continue with IV fluid and antibiotics. Will discuss with GI. Will encourage ambulation. Will limit pain medication as she may be drug seeking. Will monitor closely. Qualifiers: Abdominal location: epigastric Qualified Code(s): R10.13 - Epigastric pain (2) History of cholecystectomy Current Visit: Yes Status: Chronic Plan: Continue as above. (3) Nausea Onset Date: 05/05/18 Current Visit: Yes Status: Acute Plan: Continue as above. Will provide medication. (4) Pancreatitis Current Visit: Yes Status: Acute Plan: Will check ABUS. MRCP negative. Continue with IV fluids and antibiotics. Will monitor. Will discuss with GI. Encourage ambulation. Qualifiers: Chronicity: acute Pancreatitis type: unspecified pancreatitis type Acute pancreatitis complication: no infection or necrosis Qualified Code(s): K85.90 - Acute pancreatitis without necrosis or infection, unspecified Discharge Plan: Home Plan to discharge in: 48 Hours Time Spent Managing Pts Care (In Minutes): 55
[2018-05-05] MEDS ORDERED: MORPHINE 2 MG/ML SYR IV PRN (16:06)
[2018-05-05] MEDS ORDERED: BUSPIRONE HCL 5 MG TABLET PO SCH (21:00)
[2018-05-06] MEDS: METRONIDAZOLE 500mg IVPB 500 MG/100 ML BAG IV SCH ×2 (01:37→09:55)
[2018-05-06] MEDS: KETOROLAC 30 MG/ML INJ IV PRN (01:42)
[2018-05-06 02:37] VITALS: O2SAT 98
[2018-05-06] MEDS: NA CHLORIDE 0.9% 1,000 ML IV SCH (05:14)
[2018-05-06 05:49] LABS: ALT/SGPT 13 U/L (12-78); AST/SGOT 9 U/L (15-37); Absolute Monocytes 0.5 K/uL (0.1-1.3); Absolute Neutrophil 2.7 K/uL (1.8-8.0); Alkaline Phosphatase 42 U/L (45-117); BUN Blood Urea Nitrogen 9 mg/dL (7-18); Basophils % 0.8 % (0-1.3); Bicarbonate 26 mmol/L (21-32); Bilirubin Total 0.2 mg/dL (0.2-1.0); Eosinophils % 6.8 % (0-4.4); Glucose Level 80 mg/dL (74-106); Hematocrit 33.7 % (36.0-45.0); Lymphocytes % 36.1 % (15.3-44.8); MCH 29.3 pg (27.0-35.0); MCV 85.1 fL (80-100); MPV 8.4 fL (7.6-11.3); Magnesium 2.1 mg/dL (1.8-2.4); Monocytes % 8.4 % (3.3-12.3); Potassium 3.6 mmol/L (3.5-5.1); Protein, Total 5.7 g/dL (6.4-8.2); RBC Red Blood Cell Count 3.96 M/uL (3.86-4.86); Sodium Level 143 mmol/L (136-145)
[2018-05-06] MEDS ORDERED: POTASSIUM 25 MEQ EFFERV TAB PO ONE (06:02)
--- NOTE | 2018-05-06 08:24 | P.DS ---
Admission Date: 05/04/18 Discharge Date: 05/06/18 Primary Care Provider: Dr. De La Garza/Dr. Donnelly([place], [place]) Disposition: ROUTINE DISCHARGE Discharge Condition: GOOD Reason for Admission: Abdominal pain Consultations: GI-Dr. Richmond Procedures: CT scan: COMPARISON: No comparisons TECHNIQUE: Biphasic CT imaging of the abdomen and pelvis was performed with 100 ml non-ionic IV contrast. All CT scans are performed using dose optimization technique as appropriate and may include automated exposure control or mA/KV adjustment according to patient size. FINDINGS: The lung bases are clear.Deflated right breast implant, partially image. The liver, spleen, pancreas, adrenal glands and kidneys are within normal limits. Cholecystectomy appear No bowel obstruction, free air, free fluid or abscess. Appendectomy. No evidence of significant lymphadenopathy. No suspicious bony findings. IMPRESSION: No acute intra-abdominal or pelvic finding. MRCP: FINDINGS: No intrahepatic biliary tree dilatation is seen. The common bile duct is normal caliber without evidence of retained stone, stricture or mass. The pancreatic duct is not pathologically dilated. The gallbladder is surgically absent. Limited T2 sequences through the abdomen demonstrates no bulky adenopathy, significant free fluid or abscess. Collapsed right breast implant noted. IMPRESSION: Negative MR cholangiogram. Abdominal ultrasound: COMPARISON: MRCP study May 04, CT study May 04 FINDINGS: Gallbladder is absent. No mass, abscess or other abnormality in the gallbladder fossa. Common bile duct is 5 mm, normal range, with no common duct stone identified. The liver and spleen show no suspicious findings. Liver has a slightly coarsened echotexture but no definitive evidence of fatty infiltration. The pancreas is normal. No hydronephrosis or suspicious mass in either kidney. Cortical thickness and echogenicity are normal. Aorta and IVC show no suspicious findings. No ascites or bulky lymphadenopathy. IMPRESSION: Unremarkable post cholecystectomy abdomen ultrasound. - Problems (1) Abdominal pain Onset Date: 05/05/18 Current Visit: Yes Status: Acute Qualifiers: Abdominal location: epigastric Qualified Code(s): R10.13 - Epigastric pain (2) History of cholecystectomy Current Visit: Yes Status: Chronic (3) Nausea Onset Date: 05/05/18 Current Visit: Yes Status: Acute (4) Pancreatitis Current Visit: Yes Status: Acute Qualifiers: Chronicity: acute Pancreatitis type: unspecified pancreatitis type Acute pancreatitis complication: no infection or necrosis Qualified Code(s): K85.90 - Acute pancreatitis without necrosis or infection, unspecified (5) GERD (gastroesophageal reflux disease) Current Visit: Yes Status: Suspected Qualifiers: Esophagitis presence: esophagitis presence not specified Qualified Code(s) : K21.9 - Gastro-esophageal reflux disease without esophagitis (6) Anxiety with depression Current Visit: Yes Status: Chronic Brief History of Present Illness: 37-year-old female presented to the ER with abdominal pain. This all started a couple a days ago. It was mainly to the epigastric region. She had nausea but no vomiting with this. It was mainly to the epigastric region and radiated to the right upper quadrant. She rates the pain about a 8/10. She reports mild diarrhea. She had increased bloating. She further reports that 1- 2 months ago she had her gallbladder taken out in [place], [place] at [facility]. She reports having an ERCP at that time. She was told she had 1 stone. Apparently was removed. In the ER she was evaluated. White count 7.4, hemoglobin 12.9. Sodium 138, potassium 3.6. BUN 22 coming creatinine 0.5 with a GFR greater than 90. Total bilirubin 0.1, AST of 12. Lipase was elevated noted. CT scan shows no acute abdominal abnormality. Previous cholecystectomy was noted. Due to nature of the findings the patient was admitted for further evaluation and treatment. When I saw the patient ER, pain was better controlled. Patient also has a history of appendectomy, for prior C-sections. Otherwise she has no major medical issues. Hospital Course: The patient did well in the course of her stay. Her abdominal pain resolved. No significant nausea vomiting was noted at discharge. Patient was evaluated by GI. Patient had CT scan of the abdomen, MRCP, and abdominal ultrasound. All were negative. No significant acute changes were noted. Post cholecystectomy changes were noted but no suspicious findings were identified. This was addressed in detail with GI. GI recommended no intervention. Patient had recent cholecystectomy with ERCP at another facility. Patient had mild pancreatitis. Slight elevation in her lipase was noted. This resolved. Etiology unknown. Patient reports no use of alcohol. Patient likely has underlying GERD. At discharge patient will continue with Protonix 40 mg 1 pill once daily. She will continue with a soft diet. Patient may follow up with GI as an outpatient to further monitor. Patient is a history of depression with anxiety. She will continue with her medication-Buspar. I was able to review information from [facility]. The patient apparently had a Cholecytectomy in February along with ERCP with stent placement. This was done at [facility] in [place]. She was discharge but the patient continued to have more pain. That is when the patient went to [facility] and was admitted. She was evaluated by GI and avionics system engineer. GI suspected a fistula. An ERCP was done. Sludge was noted and removed. Her Stent was also removed. Biospy was done. Pathology showed reactive changes. No cancer was identified. She was negative for CMV. She was eventually discharged and told to follow up with Dr. Adrian Christian at [facility] and with a SOFTWARE TEST DEVELOPER. She has since seen SOFTWARE TEST DEVELOPER as an outpatient. She has not followed up with Dr. Christian. She was told to follow up with GI locally or with Dr. Christian. At this discharge she is doing well. No pain is noted. No nausea or vomiting. She will continue with Protonix and told not to use NSAIDS. Dietary changes addressed in detail with Mother present. Vital Signs/Physical Exam: Temp Pulse Resp BP Pulse Ox 97.9 F 76 18 114/77 99 05/06/18 04:00 05/06/18 04:00 05/06/18 04:00 05/06/18 04:00 05/06/18 04:00 General: Alert, In no apparent distress, Oriented x3, Cooperative HEENT: Atraumatic, Mucous membr. moist/pink Neck: Supple, No Thyromegaly Respiratory: Clear to auscultation bilaterally, Normal air movement Cardiovascular: Normal pulses, Regular rate/rhythm Gastrointestinal: Normal bowel sounds, Soft and benign, Non-distended, No ascites, No tenderness, No masses, No rebound, No guarding Musculoskeletal: No erythema, No tenderness, No warmth Integumentary: No tenderness/swelling, No erythema, No warmth, No cyanosis Neurological: Normal speech, Normal strength at 5/5 x4 extr, Normal tone, Normal affect Lymphatics: No axilla or inguinal lymphadenopathy Laboratory Data at Discharge: WBC 5.6 K/uL (4.3-10.9) D 05/06/18 04:49 Hgb 11.6 g/dL (12.0-15.0) L 05/06/18 04:49 Hct 33.7 % (36.0-45.0) L 05/06/18 04:49 Plt Count 271 K/uL (152-406) 05/06/18 04:49 Sodium 143 mmol/L (136-145) 05/06/18 04:49 Potassium 3.6 mmol/L (3.5-5.1) 05/06/18 04:49 BUN 9 mg/dL (7-18) 05/06/18 04:49 Creatinine 0.50 mg/dL (0.55-1.3) L 05/06/18 04:49 Glucose 80 mg/dL (74-106) 05/06/18 04:49 Magnesium 2.1 mg/dL (1.8-2.4) 05/06/18 04:49 Total Bilirubin 0.2 mg/dL (0.2-1.0) 05/06/18 04:49 AST 9 U/L (15-37) L 05/06/18 04:49 ALT 13 U/L (12-78) 05/06/18 04:49 Alkaline Phosphatase 42 U/L (45-117) L 05/06/18 04:49 Triglycerides 99 mg/dL (<150) 05/05/18 04:39 Cholesterol 152 mg/dL (<200) 05/05/18 04:39 HDL Cholesterol 55 mg/dL (40-60) 05/05/18 04:39 Cholesterol/HDL Ratio 2.76 05/05/18 04:39 Amylase 77 U/L (25-115) 05/05/18 04:39 Lipase 222 U/L (73-393) 05/05/18 04:39 Home Medications: Buspirone HCl [Buspar] 7.5 mg PO BID 05/04/18 Pantoprazole [Protonix Tab] 40 mg PO DAILY #30 tab 05/06/18 New Medications: Pantoprazole [Protonix Tab] 40 mg PO DAILY #30 tab Patient Discharge Instructions: 1. Patient will need to follow up with her PCP in 1 week to follow up this hospitalization. 2. Patient presented with abdominal pain, nausea and vomiting. Patient was found to have mild pancreatitis. Etiology unknown. Patient with recent history of cholecystectomy requiring ERCP prior to procedure. This was done at another facility. CT scan of the abdomen, MRCP, an abdominal ultrasound showed no acute changes. GI consulted. No intervention was needed. At discharge she will continue with a soft diet. Patient may follow up with GI as an outpatient to further monitor. Follow up with GI locally or with Dr. Adrian Christian at [facility]. 3. Patient likely has GERD. Patient will continue with Protonix 40 mg 1 pill once daily. 4. Patient has depression with anxiety. Patient will continue with medication-Buspar. Diet: gi soft advance as tolerated Activity: Ad cieol Time spent managing pt's care (in minutes): 55
[2018-05-06 09:21] LABS: Barbiturates NEGATIVE (NEGATIVE); Benzodiazepines NEGATIVE (NEGATIVE); Cocaine NEGATIVE (NEGATIVE); METHAMPHETAM NEGATIVE (NEGATIVE); Methadone NEGATIVE (NEGATIVE); Opiates NEGATIVE (NEGATIVE); Phencyclidine NEGATIVE (NEGATIVE); THC Cannibis NEGATIVE (NEGATIVE)
[2018-05-06] MEDS: PANTOPRAZOLE 40 MG INJ IVP SCH (09:54)
[2018-05-06] MEDS: ENOXAPARIN 40 MG/0.4 ML SQ SCH (09:54)
[2018-05-06] MEDS: CIPROFLOXACIN 400mg IV 400 MG/200 ML BAG IV SCH (09:55)
[2018-05-06 15:18] VITALS: BP 137/95; TEMP 98.4
== END 2018-05-06 14:57 | disposition home or self-care (01) | DRG 440 ==
LOC: ER 09:57 → ERHOLD 13:37 → 2ND 16:40
PROVIDERS: ADMIT Family Medicine; ATTEND Family Medicine
DX: K85.90 Acute pancreatitis without necrosis or infection, unspecified (principal); K21.9 Gastro-esophageal reflux disease without esophagitis; F41.8 Other specified anxiety disorders; Z90.49 Acquired absence of other specified parts of digestive tract
CPT/HCPCS: 36415; 74177; 74181; 76700; 80048; 80053; 80061; 80076; 80307; 81003; 81025; 82150; 83690; 83735; 84439; 84443; 85025; 99285; C9113; J0744; J1650; J2175; J2270; J2405; J2550; J7030; Q9967

== ENCOUNTER 2021-07-14 13:48 | Emergency (ER) | payer OTHER, SELFPAY ==
--- OUTSIDE RECORDS SUMMARY | 2021-07-14 13:51 | XMS REPORT | Continuity of Care Document ---
:1980 Author Organization [facility] t Address [address] [place] [address] Care Team Providers Name Role Phone Ramsay [facility] Quiroz Primary Care Physician Ezekiel AMADOR, G Attending Clinician Doctor Unassigned, Name Attending Clinician Unavailable Jenn PACHECO, Sohail Attending Clinician MD JENNIFER HARRIS Attending Clinician Unavailable CLEMENT VILLANUEVA Attending Clinician Unavailable ANALISA Attending Clinician Unavailable MD JENNIFER HARRIS Admitting Clinician Unavailable Payers Payer Name Policy Type Policy Effective Expiration Source Number Date Date [facility] [id number] 2018 [facility] 00:00:00 [place] Me dical MEDICAIDCOMMUNITY Branch HEALTH CHOICE [id number]/2017-PresentP[address], [place] [address]Medicaid Problems Condition Condition Condition Status Onset Resolution Last Treating Co mments Source Name Details Category Date Date Treatment Clinician Date Acute Acute Disease Active Methodi abdominal abdominal 6-07 st pain pain 00:00: Hospita 00 l Right Right Disease Active Overview: Method i upper upper 6-[address] quadrant quadrant 00:00: g of this Hos [facility] abdominal abdominal 00 note l pain pain might be different from the original. Added automatic ally from request for surgery [id number] Closed Closed Disease Active 2015-11 Methodi fracture fracture 0-05 st of left of left 00:00: Hospita ulna ulna 00 l No known No known Disease Unive rs active active ity of problems problems [facility] Allergies, Adverse Reactions, Alerts Allergy Allergy Status Severity Reaction(s) Onset Inactive Treating Comm ents Source Name Type Date Date Clinician Susannah Kenney Active 0 Methodi ty to 6-06 st adverse 00:00: Hospita reaction 00 l s to drug Codeine Propensi Active Hives 2017-0 Univers ty to 1-15 ity of adverse 00:00: [place] reaction 00 [facility] s Branch Family History Family Member Diagnosis Comments Start Date Stop Date Source Paternal grandmother [facility] Natural father Colon cancer [facility] Maternal grandfather Heart disease [facility] Maternal grandmother [facility] Natural mother No Known Problems Met [facility] Paternal grandfather [facility] Social History Social Habit Start Date Stop Date Quantity Comments Source Exposure to Not sure [facility]-CoV-2 (event) [facility] History of tobacco Cigarette Smoker Quaker use [facility] Cigarettes smoked 2021-02-05 2021-02-[address] [facility] current (pack per 00:00:00 00:00:00 Hospita l day) - Reported Tobacco use and 2021-02-05 2021-02-05 Never used [facility] exposure 00:00:00 00:00:00 Hospital Alcohol intake 2021-02-05 2021-02-05 Current drinker [facility] 00:00:00 00:00:00 of [facility] Hospital (finding) Tobacco Comment 2020-07-03 2020-07-03 quit 4 months [facility] 00:00:00 00:00:00 ago Hospital Alcohol Comment 2016-06-27 2016-06-27 socially Quaker 00:00:00 00:00:00 Hospital Sex Ass[birth year] At [birth year] [facility] 00:00:00 00:00:00 Hospital Smoking Status Start Date Stop Date Source Unknown if ever smoked [facility] of [facility] Former smoker 2021-02-05 00:00:00 2021-02-05 00:00:00 [facility] Medications Ordered Filled Start Stop Current Ordering Indication Dosage Frequency Signature Comments Components Source Medication Medication Date Date Medication? Clinician (SIG) Name Name butorphanol No 1mg 1 mg, IV U nivers (STADOL) 07-10 Push, ity of injection 1 23:45: 22:40 [place]CE[place] 1 [place] :00 dose, Counts Include 234 [facility] Medical 07/10/21 at Branch 1845, Routine NaCl 0.9% 2020- No 1000mL at 999 Uni vers (NS) bolus 07-10 mL/hr, ity of infusion 23:00: 23:10 1,000 mL, [place] as 1,000 mL 00 :00 IV Medical Piggyback, Branch ONCE, 1 dose, Counts Include 234 [facility] 07/10/21 at 1800, STAT ondansetron 2020- No 4mg 4 mg, Slow Univers (ZOFRAN 07-10 IV Push, ity of (PF)) 23:00: 22:09 ONCE, 1 [place] injection 4 00 :00 dose, Counts Include 234 [facility] Med ical mg 07/10/21 at Branch 1800, ABENA ketorolac 2020- No 30mg 30 mg, Unive rs (TORADOL) 07-10 Slow IV ity of injection 23:00: 22:09 Push, [place] 30 mg 00 :00 ONCE, 1 Medical dose, Counts Include 234 [facility] Branch 07/10/21 at 1800, Routine
biology faculty member approving Restricted medication : MARLNEI GAMING ketorolac Yes [id number] 10mg Take 1 Un lnyn 10 mg 8-31 tablet by ity of tablet 00:00: mouth [place] 00 every 6 Medical (six) Branch hours as needed for Pain (scale 1-3). ondansetron Yes [id number] 4mg Take 1 Univers (ZOFRAN 8-31 tablet by ity of ODT) 4 mg 00:00: mouth [place] disintegrat 00 every 8 Medic al ing tablet (eight) Branch hours as needed for Nausea and Vomiting (N/V). hydroCHLORO Yes [id number] 25mg Take 1 Univers thiazide 25 -31 tablet by ity of mg tablet 00:00: mouth [place] 00 every Medical morning. Branch traMADoL 50 2020- Yes [id number] 50mg Take 1 Uni vers mg tablet 07-10 tablet by ity of 00:00: 04:59 mouth [place] 00 :00 every 6 Medical (six) Branch hours as needed for Pain (scale 4-6) or Pain (scale 7-10) for up to 7 days. Indication s: acute pain cyclobenzap 2020- No 5mg Q.[id number] Take 1 Methodi rine 3-30 04-10 [id number] tablet (5 st (FLEXERIL) 00:00: 04:59 3D mg total) H ospita 5 mg tablet 00 :00 by mouth 3 l (three) times a day as needed for muscle spasms for up to 10 days. ketorolac 2017-11 Yes 10mg Take 1 Univer s 10 mg 11-18 tablet by ity of tablet 00:00: mouth 3 [place] 00 (three) Medical times Branch daily as needed for Pain (scale 7-10). ondansetron 2017-11 Yes 4mg Take 1 Univ ers (ZOFRAN 11-18 tablet by ity of ODT) 4 mg 00:00: mouth [place] disintegrat 00 every 8 Medic al ing tablet (eight) Branch hours as needed for Nausea and Vomiting (N/V). tamsulosin 2017-11 Yes .4mg Take 1 Unive rs 0.4 mg 24 11-18 capsule by ity of hr capsule 00:00: mouth at [place] 00 bedtime. Medical Branch traMADOL 2017-11 Yes 50mg Take 1 Univers (ULTRAM) 50 11-18 tablet by ity of mg tablet 00:00: mouth [place] 00 every 6 Medical (six) Branch hours as needed for Pain (scale 4-6). tamsulosin 2017-11- No .4mg Take 1 Univ ers 0.4 mg 24 11-18 capsule by ity of hr capsule 00:00: 00:00 [place] :00 bedtime. Medical Branch traMADOL 2017-11- No 50mg Take 1 Univer s (ULTRAM) 50 11-18 tablet by it y of mg tablet 00:00: 00:00 mouth [place] 00 :00 every 6 Medical (six) Branch hours as needed for Pain (scale 4-6). ketorolac 2017-11- No 10mg Take 1 Unive rs 10 mg 11-18 tablet by ity of tablet 00:00: 00:00 mouth 3 [place] 00 :00 (three) Medical times Branch daily as needed for Pain (scale 7-10). ondansetron 2017-11- No 4mg Take 1 Uni vers (ZOFRAN 11-18-31 tablet by ity of ODT) 4 mg 00:00: 00:00 mouth [place] disintegrat 00 :00 every 8 Medic al ing tablet (eight) Branch hours as needed for Nausea and Vomiting (N/V). naproxen Yes 250mg Take 1 Univer s 250 mg 1-15 tablet by ity of tablet 00:00: mouth 2 [place] 00 (two) Medical times Branch daily with meals. traMADOL Yes 50mg Take 1 Univers (ULTRAM) 50 1-15 tablet by ity of mg tablet 00:00: mouth [place] 00 every 6 Medical (six) Branch hours as needed for Pain (scale 4-6). Ravi Arellano PA-C / Nicko Coe MD BRYAN# [id number] DPS# [id number] x Lic.# [id number] NPI# [id number] cyclobenzap Yes 5mg Take 1 Univ ers rine 5 mg 1-15 tablet by ity o f tablet 00:00: mouth 3 [place] 00 (three) Medical times Branch daily. naproxen 2020- No 250mg Take 1 Unive rs 250 mg 15 -31 tablet by ity of tablet 00:00: 00:00 mouth 2 [place] 00 :00 (two) Medical times Branch daily with meals. traMADOL 2020- No 50mg Take 1 Univer s (ULTRAM) 50 -15 -31 tablet by it y of mg tablet 00:00: 00:00 mouth [place] 00 :00 every 6 Medical (six) Branch hours as needed for Pain (scale 4-6). Ravi Arellano PA-C / Nicko Coe MD BRYAN# [id number] DPS# [id number] x Lic.# [id number] NPI# [id number] cyclobenzap 2016-2020- No 5mg Take 1 Uni vers rine 5 mg 1-15 -31 tablet by ity of tablet 00:00: 00:00 mouth 3 [place] 00 :00 (three) Medical times Branch daily. cyclobenzap 2015-11 Yes 5mg Take 1 Univ ers rine 0-14 tablet by ity of (FLEXERIL) 00:00: mouth [place] 5 mg tablet 00 (three) Medic al times Branch daily. cyclobenzap 2015-11- No 5mg Take 1 Uni vers rine 0-14 07-10 tablet by ity of (FLEXERIL) 00:00: 00:00 mouth 3 [place] 5 mg tablet 00 :00 (three) Medic al times [place] daily. Vital Signs Vital Name Observation Time Observation Value Comments Source Systolic blood 2021-07-10 23:45:00 134 mm[Hg] Univer sity [facility] Diastolic blood 2021-07-10 23:45:00 103 mm[facility]Hg] [facility] rate 2021-07-10 23:45:00 75 /min [facility] Respiratory rate 2021-07-10 23:45:00 16 /min [facility] Oxygen saturation in 2021-07-10 23:45:00 98 /min [facility] Arterial blood by [facility] Pulse oximetry [place] Body temperature 2021-07-10 21:51:00 36.78 Padmini [facility] Body weight 2021-07-10 21:51:00 81.647 kg [facility] BMI 2021-07-10 21:51:00 29.95 kg/m2 [facility] Systolic blood 2021-02-06 05:53:00 153 mm[Hg] Method [facility] pressure Diastolic blood 2021-02-06 05:53:00 88 mm[Hg] [facility] pressure Heart rate 2021-02-06 05:53:00 85 /min [facility] Body temperature 2021-02-06 05:53:00 36.94 Padmini [facility] Respiratory rate 2021-02-06 05:53:00 18 /min [facility] Oxygen saturation in 2021-02-06 05:53:00 98 /min [facility] Arterial blood by Pulse oximetry Body height 2021-02-06 02:41:00 165.1 cm [facility] Body weight 2021-02-06 02:41:00 81.647 kg [facility] BMI 2021-02-06 02:41:00 29.95 kg/m2 [facility] Procedures Procedure Date / Time Performing Clinician Source Performed CT ABDOMEN PELVIS WO 2021-07-10 22:54:34 Marleni Gaming [facility] CONTRAST [facility] POCT TEST 2021-07-10 22:08:00 Marleni Gaming [facility] HEPATIC FUNCTION PANEL 2021-07-10 22:02:00 Marleni Gaming [facility] ([id number]) (ALB,T.PRO,BILI Medical Branch T,BU/BC,ALT,AST,ALK PHOS) BASIC METABOLIC PANEL 2021-07-10 22:02:00 Marleni Gaming [facility] (NA, K, CL, CO2, Medical Branch GLUCOSE, BUN, CREATININE, CA) CBC WITH DIFF 2021-07-10 22:02:00 Marleni Gaming [facility] URINALYSIS 2021-07-10 22:02:00 Marleni Gaming [facility] NOTICE OF PRIVACY 2021-07-10 21:46:47 Doctor Unassigned, No [facility] PRACTICES Name [facility] Branch CONSENT/REFUSAL FOR 2021-07-10 21:46:34 Doctor Unassigned, No [facility] DIAGNOSIS AND TREATMENT Name [facility] URINALYSIS 2021-02-06 05:04:[address] [facility] HCG QUALITATIVE, URINE 2021-02-06 05:04:00 [facility] SCREEN CT RENAL STONE PROTOCOL 2021-02-06 03:51:49 [facility] HC COMPLETE BLD COUNT 2021-02-06 02:58:00 [facility] W/AUTO DIFF COMPREHENSIVE METABOLIC 2021-02-06 02:58:00 [facility] PANEL AMYLASE LEVEL 2021-02-06 02:58:00 [facility] LACTIC ACID, I-STAT 2021-02-06 02:58:00 [facility] ESTIMATED GFR 2021-02-06 02:58:00 [facility] Plan of Care Planned Activity Planned Date Details Comments Source Future Scheduled Test COVID-19 VACCINE (1) [facility] [code = COVID-19 VACCINE (1)] Future Scheduled Test Hepatitis C screening [facility] (procedure) [code = 926198265] Future Scheduled Test Screening for [facility] malignant neoplasm of cervix (procedure) [code = 042840498] Future Scheduled Test INFLUENZA VACCINE [facility] [code = INFLUENZA VACCINE] Encounters Start End Encounter Admission Attending Care Care Encounter Source Date/Time Date/Time Type Type Clinicians Facility Department ID 2021-07-10 2021-07-10 Emergency [facility] [id number] Univers 16:53:00 19:21:00 Marleni Mtz 350.1.13.10 ity of [place] 4.2.7.2.686 [facility] [id number] [facility] 084 Branch 2021-07-10 2021-07-10 Orders Doctor MOIRA [id number] [place] [address] 00:00:00 00:00:00 Only Unassigned, ELIER 350.1.13.10 ity of [facility] 4.2.7.2.686 [facility] [id number] [facility] 009 Branch 2021-02-05 2021-02-06 Emergency [facility] [id number] Methodi 21:38:00 00:57:[address] [facility] 3.430.2.7 Hospit a .[id number] l .8 2021-02-05 2021-02-06 Emergency [facility] 064 [id number] [place] 00:00:00 00:00:[address] HASAN [address] 2021-02-05 2021-02-05 Travel 1.2.840.1 [id number] Methodi 00:00:00 00:00:[address] 3.430.2.7 0.2.7.3.698 Ho spita .[id number] 084.8 l .8 2020-07-03 2020-07-03 Emergency [facility] 064 [id number] [place] 00:00:00 00:00:00 Jay VILLANUEVA Method i CASEY 2020-01-18 2020-01-18 Emergency ANALISA, [facility] 064 [id number] [place] 00:00:00 00:00:00 CHICO Steiner [facility] 2019-06-08 2019-06-08 Outpatient [facility] 7530 20:15:00 20:15:[address] [facility] 2019-04-03 2019-04-03 Emergency E [facility] 7529 19:08:00 19:08:[address] [facility] Results Test Description Test Time Test Comments Results Result Comments Source URINALYSIS 2021-07-10 22:49:29 Test Item Value Reference Range Interpretation Comme nts APPEARANCE (test code = Cloudy Clear A 7444955222) COLOR (test code = 8068487044) Yellow Yellow PH (test code = 0256226774) 4.8-8.0 SP GRAVITY (test code = 1.003-1.030 8521843835) GLU U QUAL (test code = Normal Normal 7009933069) BLOOD (test code = 4067585190) Negative Negative KETONES (test code = 0158114351) Negative Negative PROTEIN (test code = 2887-8) Negative Negative UROBILIN (test code = Normal Normal 7481960053) BILIRUBIN (test code = Negative Negative 8680459672) NITRITE (test code = 2853102956) Negative Negative LEUK IRMA (test code = Negative Negative 9325262822) RBC/HPF (test code = 3173847287) See_Comment [Automated message] The system which ge nerated this result transmit emma reference range: 0 - 3 HP F. The reference range was not used to interpret th is result as normal/abnormal . WBC/HPF (test code = 8782352681) See_Comment [Automated message] The system which ge nerated this result transmit emma reference range: 0 - 5 HP F. The reference range was not used to interpret th is result as normal/abnormal . BACTERIA (test code = Moderate Negative A 9662236611) MUCOUS (test code = 8262088361) Moderate Negative LPF A SQ EPITH (test code = HPF 4084592261) Lab Interpretation (test code = Abnormal 30416-5) [facility] (ALB,T.PRO,BILI T,BU/BC,ALT,AST,ALK PHOS)2021-07-10 22:45:49 Test Item Value Reference Range Interpretation Comments TOTAL BILI (test code = 9940287006) 0.4 mg/dL 0.1-1.1 BILI UNCON (test code = 8643140472) 0.2 mg/dL 0.1-1.1 BILI CONJ (test code = 8002426532) 0.0 mg/dL 0.0-0.3 T PROTEIN (test code = 8345744546) 7.5 g/dL 6.3-8.2 ALBUMIN (test code = 3509378267) 4.4 g/dL 3.5-5.0 ALK PHOS (test code = 8046360589) 55 U/L 34-122 ALTv (test code = 1742-6) 18 U/L 5-35 AST(SGOT) (test code = 9253171102) 24 U/L 13-40 Lab Interpretation (test code = Normal 31457-6) [facility] (NA, K, CL, CO2, GLUCOSE, BUN, CREATININE, CA)2021-07-10 22:20:21 Test Item Value Reference Range Interpretation Comments NA (test code = 9334823562) 139 mmol/L 135-145 K (test code = 6618312087) 3.9 mmol/L 3.5-5.0 CL (test code = 6191333919) 107 mmol/L 98-108 CO2 TOTAL (test code = 7125104194) 23 mmol/L 23-31 AGAP (test code = 8455569269) 2-16 BUN (test code = 7264266018) 12 mg/dL 7-23 GLUCOSE (test code = 6688748800) 106 mg/dL 70-110 CREATININE (test code = 0.54 mg/dL 0.50-1.04 2150950432) CALCIUM (test code = 9878617351) 8.8 mg/dL 8.6-10.6 eGFR (test code = 5563598886) mL/min/1.73m2 IFEANYI (test code = IFEANYI) [facility] WITH [id number] 22:15:01 Test Item Value Reference Range Interpretation Comments WBC (test code = See_Comment [Automated 6690-2) message] The sy stem which generated this result transmitted reference range : 4.30 - 11.10 10*3/?L. The reference range was not used to interpret this result as normal/abnormal . RBC (test code = See_Comment [Automated 789-8) message] The sy stem which generated this result transmitted reference range : 3.93 - 5.25 10*6/?L. The reference range was not used to interpret this result as normal/abnormal . HGB (test code = 12.5 g/dL 11.6-15.0 718-7) HCT (test code = 38.6 % 35.7-45.2 4544-3) MCV (test code = 82.0 fL 80.6-95.5 787-2) MCH (test code = 26.5 pg 25.9-32.8 785-6) MCHC (test code = 32.4 g/dL 31.6-35.1 786-4) RDW-SD (test code = 45.0 fL 39.0-49.9 85371-4) RDW-CV (test code = 15.1 % 12.0-15.5 788-0) PLT (test code = See_Comment [Automated 777-3) message] The sy stem which generated this result transmitted reference range : 166 - 358 10*3/ ?L. The reference r teresa was not used to interpret this result as normal/abnormal . MPV (test code = 10.5 fL 9.5-12.9 29718-6) NRBC/100 WBC (test See_Comment [Automat ed code = 1577088638) message] The system which generated this result transmitted reference range : 0.0 - 10.0 /100 WBCs. The refer ence range was not u sed to interpret th is result as normal/abnormal . NRBC x10^3 (test code <0.01 See_Comment [Auto mated = 7990875961) message] The s ystem which generated this result transmitted reference range : 10*3/?L. The reference range was not used to interpret this result as normal/abnormal . GRAN MAT (NEUT) % 46.8 % (test code = 770-8) IMM GRAN % (test code 0.20 % = 6760955769) LYMPH % (test code = 34.9 % 736-9) MONO % (test code = 12.1 % 5905-5) EOS % (test code = 4.8 % 713-8) BASO % (test code = 1.2 % 706-2) GRAN MAT x10^3(ANC) 3.88 10*3/uL 1.88-7.09 (test code = 3245980050) IMM GRAN x10^3 (test <0.03 0.00-0.06 code = 9372112835) LYMPH x10^3 (test code 2.89 10*3/uL 1.32-3.29 = 731-0) MONO x10^3 (test code 1.00 10*3/uL 0.33-0.92 H = 742-7) EOS x10^3 (test code = 0.40 10*3/uL 0.03-0.39 H 711-2) BASO x10^3 (test code 0.10 10*3/uL 0.01-0.07 H = 704-7) Lab Interpretation Abnormal (test code = 35029-7) [facility] [id number] 22:08:00 Test Item Value Reference Range Interpretation Comments POCT PREG (test code = 1605) negative On board controls acceptable with present C Line (test code = 3574) POCT PREG LOT # (test code = 3575) [id number] POCT PREG TEST DATE (test 11/09/2022 code = 3576) Lab Interpretation (test code = Normal 08679-6) [facility] Renal Stone [id number] 04:20:07 EXAMINATION: CT RENAL STONE PROTOCOL CLINICAL HISTORY: Flank pain kidney stone suspected COMPARISON: CT abdomen pelvis dated January 18, 2020. TECHNIQUE: CT of the abdomen and pelvis without intravenous contrast. Absence of intravenous contrast decreases sensitivity for detection of focal lesions and vascular pathology. CT imaging was performed with iterative reconstruction techniques and/or automated exposure control to reduce radiation dose. FINDINGS: LOWER THORAX: Mild bibasilar atelectasis/scarring. HEPATOBILIARY: No focal hepatic lesions. No biliary ductal dilation. Status post cholecystectomy. SPLEEN: No splenomegaly. PANCREAS: No focal masses or ductal dilation. ADRENALS: No adrenal nodules. KIDNEYS: Punctate nonobstructing calculi of right renal collecting system. Duplicated right renal collecting system. No hydronephrosis. GI TRACT: Visualized portions of the bowel demonstrate no distention or wall thickening. Scattered colonic diverticulosis without evidence of diverticulitis. Appendix is absent. PERITONEUM/RETROPERITONEUM: No free air or fluid. No lymphadenopathy. Unchanged surgical clips in the right lower quadrant. VASCULATURE: Abdominal aorta is nonaneurysmal. PELVICORGANS/BLADDER: Unremarkable. BONES AND SOFT TISSUES: Bilateral breast implants with unchanged prior right implant rupture. No acute osseous abnormalities. IMPRESSION: 1.Nonobstructing right nephrolithiasis.2.Diverticulosis without evidence of diverticulitis. [facility]-[id number] Dictated and approved by limited radiology technician/fellow: Lavell Riggs M.D. I, Silvano Barker MD, personally reviewed the images and resident's/fellow's findings and agree with the final report.[facility], Radiology Results Incoming - 02/05/2021 11:23 PM CDT EXAMINATION: CT RENAL STONE PROTOCOLCLINICAL HISTORY: Flank pain kidney stone suspectedCOMPARISON: CT abdomen pelvis dated January 18, 2020.TECHNIQUE: CT of the abdomen and pelvis without intravenous contrast. Absence of intravenous contrast decreases sensitivity for detection of focal lesions and vascular pathology.CT imaging was performed with iterative reconstruction techniques and/or automated exposure control to reduce radiation dose. FINDINGS:LOWER THORAX: Mild bibasilar atelectasis/scarring.HEPATOBILIARY: No focal hepatic lesions. No biliary ductal dilation. Status post cholecystectomy.SPLEEN: No splenomegaly.PANCREAS: No focal masses or ductal dilation.ADRENALS: No adrenal nodules.KIDNEYS:Punctate nonobstructing calculi of right renal collecting system. Duplicated right renal collecting system. No hydronephrosis.GI TRACT: Visualized portions of the bowel demonstrate no distention or wall thickening. Scattered colonic diverticulosis without evidence of diverticulitis. Appendix is absent .PERITONEUM/RETROPERITONEUM: No free air or fluid. No lymphadenopathy. Unchanged surgical clips in the right lower quadrant.VASCULATURE: Abdominal aorta is nonaneurysmal.PELVIC ORGANS/BLADDER: Unremarkable.BONES AND SOFT TISSUES: Bilateral breast implants with unchanged prior right implant rupture. No acute osseous abnormalities.IMPRESSION:1.Nonobstructing right nephrolithiasis.2.Diverticulosis without evidence of diverticulitis.[facility]- [id number] and approved by limited radiology technician/fellow: Keke Leon, Silvano Barker MD, personally reviewed the images and resident's/fellow's findings and agree with the final report.[facility] RNA [Presence] in Respiratory specimen by SE with probe [id number] 04:25:27 Test Item Value Reference Range Interpretation Comments SARS-CoV-2 (COVID-19) RNA Not detected Not-Detected [Presence] in Respiratory specimen by SE with probe detection (test code = 06058-7)
[2021-07-14 15:22] LABS: Absolute Lymphocytes (CBC) 1.8 K/uL (0.7-4.9); Basophils % 0.9 % (0-1.3); Hematocrit 40.2 % (36.0-45.0); Lymphocytes % 26.8 % (15.3-44.8); MPV 8.4 fL (7.6-11.3); RBC Red Blood Cell Count 4.88 M/uL (3.86-4.86)
[2021-07-14 15:23] LABS: Protime INR 0.97
[2021-07-14 15:56] LABS: ALT/SGPT 30 U/L (12-78); AST/SGOT 16 U/L (15-37); Albumin 3.6 g/dL (3.4-5.0); Alkaline Phosphatase 67 U/L (45-117); BUN Blood Urea Nitrogen 12 mg/dL (7-18); Bicarbonate 24 mmol/L (21-32); Bilirubin Direct 0.1 mg/dL (0-0.2); Bilirubin Total 0.3 mg/dL (0.2-1.0); Glucose Level 103 mg/dL (74-106); Lipase 245 U/L (73-393); Magnesium 2.1 mg/dL (1.8-2.4); NT PRO-BNP 306 pg/mL (<125); Potassium 3.8 mmol/L (3.5-5.1); Protein, Total 7.5 g/dL (6.4-8.2); Sodium Level 141 mmol/L (136-145); Troponin (Emerg Dept Use Only) < 0.02 ng/mL (0.0-0.045)
--- NOTE | 2021-07-14 17:00 | RAD REPORT ---
EXAM DESCRIPTION: CT - Angio Aorta For Dissection - 07/14/2021 4:36 pm CLINICAL HISTORY: . Chest and abd pain COMPARISON: Not available TECHNIQUE: Computed tomography angiography of the chest, abdomen pelvis were obtained. 100 cc Isovue 370 was administered intravenously. Coronal and sagittal reconstruction were performed. MIP 3D reconstruction was performed All CT scans are performed using dose optimization technique as appropriate and may include automated exposure control or mA/KV adjustment according to patient size. FINDINGS: An aortic dissection is not seen. An aortic aneurysm is not displayed. The celiac, SMA and HERMINIO are patent . A lung consolidation is not present. A pericardial effusion is not seen. A pleural effusion is not n oted. Collapsed right breast implant The liver,spleen, pancreas adrenals kidneys demonstrate no significant abnormality. Tampon within the vagina. No evidence of diverticulitis IMPRESSION: Negative for an aortic dissection.
--- NOTE | 2021-07-14 17:28 | RAD REPORT ---
EXAM DESCRIPTION: Nhan Single View07/14/2021 5:07 pm CLINICAL HISTORY: cough COMPARISON: none FINDINGS: The lungs appear clear of acute infiltrate. The heart is normal size IMPRESSION: No acute abnormalities displayed
[2021-07-14] MEDS ORDERED: ONDANSETRON 4 MG/2 ML VIAL ONE (19:42)
[2021-07-14] MEDS ORDERED: MORPHINE 4 MG/ML SYR ONE ×2 (19:42→22:25)
[2021-07-14] MEDS ORDERED: NA CHLORIDE 0.9% 1,000 ML ONE (19:43)
[2021-07-14] MEDS ORDERED: PANTOPRAZOLE 40 MG INJ ONE (19:43)
[2021-07-14] MEDS ORDERED: MAGNES/ALUMIN/SIMET 30ML UCUP ONE (22:25)
[2021-07-14] MEDS ORDERED: LIDOCAINE VISCOUS 2% SOLN 15 ML UDC ONE (22:26)
[2021-07-14] MEDS ORDERED: cloNIDine HCL 0.1 MG TAB ONE (23:36)
--- NOTE | 2021-07-15 00:45 | ER ---
Nurse's Notes [facility] Name: Dennis Kerr Age: 40 yrs Sex: Female : 1980 Arrival Date: 07/14/2021 Time: 13:52 Bed 10 Private MD: Diagnosis: Epigastric pain;Hypertensive heart disease without heart failure Presentation: 07/14 14:50 Chief complaint: Patient states: epigastric pain radiating to back that began aa5 yesterday. Pt reports nausea, denies vomiting, denies cough. Coronavirus screen: nausea. Ebola Screen: Patient negative for fever greater than or equal to 101.5 degrees Fahrenheit, and additional compatible Ebola Virus Disease symptoms. Initial Sepsis Screen: Does the patient meet any 2 criteria? No. Patient's initial sepsis screen is negative. Does the patient have a suspected source of infection? No. Patient's initial sepsis screen is negative. Risk Assessment: Do you want to hurt yourself or someone else? Patient reports no desire to harm self or others. Onset of symptoms was July 2021. 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 - Social history:: Smoking status: Patient denies any tobacco usage or history of. Screenin:50 Abuse screen: Denies threats or abuse. Denies injuries from another. Nutritional lp1 screening: No deficits noted. Tuberculosis screening: No symptoms or risk factors identified. Fall Risk None identified. Assessment: 19:48 General: Appears in no apparent distress. Behavior is appropriate for age. Pain: lp1 Complains of pain in epigastric area and right upper quadrant Pain radiates to back Pain currently is 7 out of 10 on a pain scale. Pain began 1 day ago. Is continuous. Neuro: Level of Consciousness is awake, alert, obeys commands. Cardiovascular: Patient's skin is warm and dry. Respiratory: Respiratory effort is even, unlabored. GI: Abdomen is non-distended, Reports nausea, Patient currently denies diarrhea, vomiting. : No signs and/or symptoms were reported regarding the genitourinary system. EENT: No signs and/or symptoms were reported regarding the EENT system. Derm: Skin is pink, warm \T\ dry. Musculoskeletal: No deficits noted. 22:00 Reassessment: Pain to upper abdomen continued; reports no relief with Morphine lp1 administered. 22:47 Reassessment: Patient is alert, oriented x 3, equal unlabored respirations, skin lp1 warm/dry/pink. Reports some pain relief with GI cocktail administered, appears to be resting comfortably Patient states feeling better. Patient states symptoms have improved. 23:08 Reassessment: Patient reports no hx of HTN; reports headache at this time. lp1 23:54 Reassessment: Patient appears in no apparent distress at this time. Patient is alert, lp1 oriented x 3, equal unlabored respirations, skin warm/dry/pink. Patient states feeling better. Vital Signs: 14:51 BP 160 / 116; Pulse 92; Resp 20 S; Temp 98.0(TE); Pulse Ox 100% on R/A; Weight 79.38 kg aa5 (R); Height 5 ft. 5 in. (165.10 cm) (R); Pain 8/10; 19:50 BP 195 / 139; Pulse 82; Resp 18; Pulse Ox 98% on R/A; Pain 7/10; lp1 22:47 BP 187 / 117; Pulse 64; Resp 16; Pulse Ox 100% on R/A; Pain 6/10; lp1 23:08 BP 162 / 100 RA (man/); lp1 23:08 BP 178 / 120 LA; lp1 23:54 BP 181 / 115; Pulse 75; Resp 16; Pulse Ox 100% on R/A; lp1 07/15 00:41 BP 156 / 101; Pulse 65; Resp 16; Pulse Ox 100% on R/A; lp1 07/14 14:51 Body Mass Index 29.12 (79.38 kg, 165.10 cm) aa5 ED Course: 07/14 13:52 Patient arrived in ED. mr 14:50 Arm band placed on. aa5 14:51 Triage completed. aa5 14:57 EKG completed in triage. Results shown to . aa5 16:36 CT Aorta for Dissection In Process Unspecified. EDMS 17:07 XRAY Chest (1 view) In Process Unspecified. EDMS 18:48 [facility]. cp 18:48 Jean Pierre Lynn MD is Attending Physician. cp 19:09 Tricia Haley, BELLA is Primary Nurse. lp1 19:50 Patient has correct armband on for positive identification. Pulse ox on. NIBP on. lp1 19:50 Patient maintains SpO2 saturation greater than 95% on room air. lp1 22:47 No provider procedures requiring assistance completed. lp1 07/15 01:00 IV discontinued, No redness/swelling at site. Pressure dressing applied. lp1 Administered Medications: 07/14 19:47 Drug: morphine 4 mg Route: IVP; Site: left antecubital; lp1 22:23 Follow up: Response: Pain is unchanged, physician notified lp1 19:47 Drug: ProTONIX (pantoprazole) 40 mg Route: IVP; Site: left antecubital; lp1 22:23 Follow up: Response: No adverse reaction lp1 19:47 Drug: NS 0.9% 1000 ml Route: IV; Rate: 1 bolus; Site: left antecubital; lp1 22:23 Follow up: IV Status: Completed infusion; IV Intake: 1000ml lp1 19:48 Drug: Zofran (Ondansetron) 4 mg Route: IVP; Site: left antecubital; lp1 22:23 Follow up: Response: No adverse reaction lp1 22:10 Drug: GI Cocktail without - (Maalox Suspension 30 ml, Lidocaine Liquid 2 % 15 lp1 ml) Route: PO; 23:09 Follow up: Response: Pain is decreased lp1 22:10 Drug: morphine 4 mg Route: IVP; Site: left antecubital; lp1 23:09 Follow up: Response: No adverse reaction; Pain is decreased lp1 23:16 Drug: cloNIDine 0.1 mg Route: PO; lp1 23:54 Follow up: 2nd 0.1mg tablet given at this time lp1 07/15 00:39 Drug: Lisinopril 20 mg Route: PO; lp1 01:00 Follow up: Response: Medication administered at discharge. lp1 00:52 Drug: Ketorolac 15 mg Route: IVP; Site: left antecubital; lp1 00:59 Follow up: Response: Medication administered at discharge. lp1 Intake: 07/14 22:23 IV: 1000ml; Total: 1000ml. lp1 Outcome: 07/15 00:44 Discharge ordered by . cp 01:00 Discharged to home ambulatory. lp1 01:00 Condition: good 01:00 Discharge instructions given to patient, Instructed on discharge instructions, follow up and referral plans. medication usage, Demonstrated understanding of instructions, follow-up care, medications, Prescriptions given X 3. 01:01 Patient left the ED. lp1 Signatures: Dispatcher [employer] BHARGAVI TseRossi nobles mr BrewerPeggy, RN RN aa5 Tricia Haley RN RN lp1 Jean Pierre Rose, SUSANNAH PA cp
--- NOTE | 2021-07-15 00:45 | EDPHYS ---
Physician Documentation [facility] Name: Dennis Kerr Age: 40 yrs Sex: Female : 1980 Arrival Date: 07/14/2021 Time: 13:52 Bed 10 Private MD: ED Physician Jean Pierre Lynn HPI: 07/14 19:05 This 40 yrs old Female presents to ER via Ambulatory with complaints of cp Epigastric Pain. 19:05 The patient presents with abdominal pain in the epigastric area, lower sternal area. cp Onset: The symptoms/episode began/occurred this morning. The symptoms radiate to back. 19:05 Associated signs and symptoms: Pertinent positives: nausea, Pertinent negatives: cp anorexia, constipation, diarrhea, fever, vomiting. 19:05 The symptoms are described as stabbing, waxing/waning. Severity of pain: in the cp emergency department the pain is unchanged despite home interventions. 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 - Social history:: Smoking status: Patient denies any tobacco usage or history of. ROS: 19:10 Constitutional: Negative for body aches, chills, fever, poor PO intake. cp 19:10 Eyes: Negative for injury, pain, redness, and discharge. cp 19:10 ENT: Negative for ear pain, sore throat, difficulty swallowing, difficulty handling secretions. 19:10 Cardiovascular: Positive for chest pain, of the lower substernal, Negative for edema, palpitations. 19:10 Respiratory: Negative for cough, shortness of breath, wheezing. 19:10 Abdomen/GI: Positive for abdominal pain, nausea, of the epigastric area, Negative for vomiting, diarrhea, constipation. 19:10 Back: Positive for radiated pain, of the thoracic area. 19:10 : Negative for urinary symptoms, flank pain. 19:10 Neuro: Negative for altered mental status, dizziness, headache, syncope, weakness. 19:10 All other systems are negative. Exam: 19:15 Constitutional: The patient appears in no acute distress, alert, awake, cp non-diaphoretic, non-toxic, well developed, well nourished, uncomfortable. 19:15 Head/Face: Normocephalic, atraumatic. cp 19:15 Eyes: Periorbital structures: appear normal, Conjunctiva: normal, no exudate, no injection, Sclera: no appreciated abnormality, Lids and lashes: appear normal, bilaterally. 19:15 ENT: External ear(s): are unremarkable, Nose: is normal, Mouth: Lips: moist, Oral mucosa: pink and intact, moist, Posterior pharynx: is normal, airway is patent, no erythema, no exudate. 19:15 Neck: External neck: is normal, ROM/movement: is normal, is supple, without pain, no range of motions limitations. 19:15 Chest/axilla: Inspection: normal, Palpation: crepitus, is not appreciated, tenderness, that is severe, of the xiphoid area. 19:15 Cardiovascular: Rate: normal, Rhythm: regular, Pulses: Pulses are 2+ in right radial artery and left radial artery. Heart sounds: murmur, not appreciated, Edema: is not appreciated, JVD: is not appreciated. 19:15 Respiratory: the patient does not display signs of respiratory distress, Respirations: normal, no use of accessory muscles, no retractions, labored breathing, is not present, Breath sounds: are clear throughout, no decreased breath sounds, no stridor, no wheezing. 19:15 Abdomen/GI: Inspection: abdomen appears normal, Bowel sounds: active, all quadrants, Palpation: soft, in all quadrants, severe abdominal tenderness, in the epigastric area, rebound tenderness, is not appreciated, voluntary guarding, is elicited in the epigastric area. 19:15 Back: pain, that is moderate, of the thoracic area, ROM is normal, CVA tenderness, is absent. 19:15 Neuro: Orientation: to person, place \T\ time. Mentation: is normal, Motor: moves all fours, strength is normal, Sensation: is normal. Vital Signs: 14:51 BP 160 / 116; Pulse 92; Resp 20 S; Temp 98.0(TE); Pulse Ox 100% on R/A; Weight 79.38 kg aa5 (R); Height 5 ft. 5 in. (165.10 cm) (R); Pain 8/10; 19:50 BP 195 / 139; Pulse 82; Resp 18; Pulse Ox 98% on R/A; Pain 7/10; lp1 22:47 BP 187 / 117; Pulse 64; Resp 16; Pulse Ox 100% on R/A; Pain 6/10; lp1 23:08 BP 162 / 100 RA (man/); lp1 23:08 BP 178 / 120 LA; lp1 23:54 BP 181 / 115; Pulse 75; Resp 16; Pulse Ox 100% on R/A; lp1 07/15 00:41 BP 156 / 101; Pulse 65; Resp 16; Pulse Ox 100% on R/A; lp1 07/14 14:51 Body Mass Index 29.12 (79.38 kg, 165.10 cm) [facility] MDM: 07/14 18:51 Patient medically screened. gabbie 19:30 Differential diagnosis: acute coronary syndrome, gastritis, gastroesophageal reflux cp disease, GI Bleed, pancreatitis, Peptic Ulcer Disease, Perf. Duodenal Ulcer, Perf. Gastric Ulcer, Peritonitis, Ureterolithiasis, AAA. 07/15 00:44 Data reviewed: vital signs, nurses notes, lab test result(s), EKG, radiologic studies, cp CT scan. 00:44 Test interpretation: by ED physician or midlevel provider: ECG, plain radiologic cp studies. Counseling: I had a detailed discussion with the patient and/or guardian regarding: the historical points, exam findings, and any diagnostic results supporting the discharge/admit diagnosis, the presence of at least one elevated blood pressure reading (>120/80) during this emergency department visit, lab results, radiology results, the need for outpatient follow up, for definitive care, a family practitioner, to return to the emergency department if symptoms worsen or persist or if there are any questions or concerns that arise at home. Response to treatment: the patient's symptoms have markedly improved after treatment, VSS. Blood pressure improved and pain markedly improved. CT negative for acute findings. Will discharge to home for continued monitoring. 07/14 14:58 Order name: Basic Metabolic Panel [facility] 07/14 14:58 Order name: CBC with Diff [facility] 07/14 14:58 Order name: LFT's; Complete Time: 18:41 [facility] 07/14 19:38 Interpretation: Normal except: GLOB 3.9; A/G 0.9. cp 07/14 14:58 Order name: Magnesium; Complete Time: 18:41 aa07/14 14:58 Order name: NT PRO-BNP; Complete Time: 18:41 aa07/14 14:58 Order name: PT-INR; Complete Time: 18:41 aa07/14 14:58 Order name: Troponin (emerg Dept Use Only); Complete Time: 18:41 aa5 07/14 19:38 Interpretation: Within normal limits: TROPED < 0.02. cp 07/14 14:58 Order name: XRAY Chest (1 view); Complete Time: 18:41 aa5 07/14 14:58 Order name: Lipase; Complete Time: 18:41 aa5 07/14 19:38 Interpretation: Within normal limits: LIP 245. cp 07/14 14:58 Order name: Basic Metabolic Panel; Complete Time: 18:41 EDMS 07/14 19:38 Interpretation: Normal except: CL 111. cp 07/14 14:58 Order name: CBC with Automated Diff; Complete Time: 18:41 EDMS 07/14 19:38 Interpretation: Normal except: RBC 4.88; MCH 26.4; RDW 16.2. cp 07/14 15:05 Order name: CT Aorta for Dissection; Complete Time: 18:41 pm1 07/14 14:58 Order name: EKG; Complete Time: 14:59 07/14 14:58 Order name: EKG - Nurse/Tech; Complete Time: 19:48 aa07/14 14:58 Order name: IV Saline Lock; Complete Time: 19:48 aa07/14 14:58 Order name: Labs collected and sent; Complete Time: 19:31 aa07/14 20:38 Order name: Vital Signs: please recheck blood pressure; Complete Time: 22:23 cp Administered Medications: 07/14 19:47 Drug: morphine 4 mg Route: IVP; Site: left antecubital; lp1 22:23 Follow up: Response: Pain is unchanged, physician notified lp1 19:47 Drug: ProTONIX (pantoprazole) 40 mg Route: IVP; Site: left antecubital; lp1 22:23 Follow up: Response: No adverse reaction lp1 19:47 Drug: NS 0.9% 1000 ml Route: IV; Rate: 1 bolus; Site: left antecubital; lp1 22:23 Follow up: IV Status: Completed infusion; IV Intake: 1000ml lp1 19:48 Drug: Zofran (Ondansetron) 4 mg Route: IVP; Site: left antecubital; lp1 22:23 Follow up: Response: No adverse reaction lp1 22:10 Drug: GI Cocktail without - (Maalox Suspension 30 ml, Lidocaine Liquid 2 % 15 lp1 ml) Route: PO; 23:09 Follow up: Response: Pain is decreased lp1 22:10 Drug: morphine 4 mg Route: IVP; Site: left antecubital; lp1 23:09 Follow up: Response: No adverse reaction; Pain is decreased lp1 23:16 Drug: cloNIDine 0.1 mg Route: PO; lp1 23:54 Follow up: 2nd 0.1mg tablet given at this time lp1 07/15 00:39 Drug: Lisinopril 20 mg Route: PO; lp1 01:00 Follow up: Response: Medication administered at discharge. lp1 00:52 Drug: Ketorolac 15 mg Route: IVP; Site: left antecubital; lp1 00:59 Follow up: Response: Medication administered at discharge. lp1 Disposition Summary: 07/15/21 00:44 Discharge Ordered Location: Home cp Problem: new cp Symptoms: have improved cp Condition: Stable cp Diagnosis - Epigastric pain cp - Hypertensive heart disease without heart failure cp Followup: cp - With: Private Physician - When: 2 - 3 days - Reason: Recheck today's complaints Discharge Instructions: - Discharge Summary Sheet cp - Gastritis, Adult cp - Hypertension, Adult cp - Peptic Ulcer cp Forms: - Medication Reconciliation Form cp - Thank You Letter cp - Antibiotic Education cp - Prescription Opioid Use cp Prescriptions: - Carafate 1 gram Oral Tablet - take 1 tablet by ORAL route 4 times per day take on an empty stomach, beginning cp on waking and last dose at bedtime. Dissolve tablet in 8 oz of warm water prior to ingestion; 100 tablet; Refills: 0, Product Selection Permitted - Protonix 40 mg Oral Tablet - take 1 tablet by ORAL route once daily; 30 tablet; Refills: 0, Product cp Selection Permitted - Lisinopril 10 mg Oral Tablet - take 1 tablet by ORAL route once daily; 20 tablet; Refills: 0, Product cp Selection Permitted Addendum: 07/16/2021 15:12 Co-signature as Attending Physician, Jean Pierre Lynn MD I agree with the assessment and c hernandez plan of care. Signatures: Dispatcher [employer] Jean Pierre Turcios MD MD cha Calderon, Audri, RN RN aa5 Tricia Haley, RN RN lp1 Jean Pierre Rose, SUSANNAH DAVALOS cp
[2021-07-15] MEDS ORDERED: lisinopriL 20 MG TAB ONE (00:52)
[2021-07-15 01:06] VITALS: TEMP 98
[2021-07-15 01:11] VITALS: O2SAT 100
[2021-07-15] MEDS ORDERED: KETOROLAC 30 MG/ML INJ ONE (01:12)
[2021-07-15 01:14] VITALS: BP 156/101
--- NOTE | 2021-07-16 17:00 | EKG ---
Test Date: 2021-07-14 Test Time: 14:54:30 Documentation Clerk: MADALYN MEASUREMENT RESULTS: Intervals: Rate: 97 GA: 120 QRSD: 70 QT: 378 QTc: 480 [place]: P: 46 GA: 120 QRS: 71 T: 34 INTERPRETIVE STATEMENTS: Normal sinus rhythm Normal ECG No previous ECG available for comparison Electronically Signed On 07-16-21 16:57:01 CDT by Bang Lamar
== END 2021-07-15 01:01 | disposition home or self-care (01) ==
LOC: ER 13:48
DX: I11.9 Hypertensive heart disease without heart failure (principal); F41.9 Anxiety disorder, unspecified; Z88.5 Allergy status to narcotic agent
CPT/HCPCS: 36415; 71045; 71275; 74175; 80048; 80076; 83690; 83735; 83880; 84484; 85025; 85610; 93005; 96361; 96374; 96375; 99284; C9113; J2405; J7030; Q9967

== ENCOUNTER 2021-08-14 13:02 | Emergency (ER) | payer SELFPAY ==
[2021-08-14 13:38] LABS: Urine Blood 2+ (Negative); Urine Glucose Negative (Negative); Urine Protein Trace (Negative); Urine Specific Gravity >=1.030 (1.005-1.030)
[2021-08-14 13:55] LABS: Urine Bacteria >50 /HPF (<20)
[2021-08-14 13:56] LABS: Urine Mucus LIGHT /HPF (NONE SEEN)
--- NOTE | 2021-08-14 13:59 | RAD REPORT ---
EXAM DESCRIPTION: CT - Stone Protocol - 08/14/2021 1:36 pm CLINICAL HISTORY: FLANK PAIN COMPARISON: Abdomen Pelvis W Contrast dated 05/04/2018 TECHNIQUE: Axial 3 mm thick images were obtained without oral or IV contrast. The [id number] span s the entirety of the system including uppermost abdomen and lung bases. All CT scans are performed using dose optimization technique as appropriate and may include automated exposure control or mA/KV adjustment according to patient size. FINDINGS: No acute lung base finding. Fully collapsed right breast implant is again noted. Left cameron st implant, partially imaged, shows no new or suspicious finding. No cardiomegaly or pericardial effu akash. No hydronephrosis is present and no obstructing ureteral calculi. No suspicious renal masses. Isodens e masses and pyelonephritis are not excluded on a stone protocol CT scan. No significant adrenal find ing. Urinary bladder is fully contracted. A small phlebolith in the right lower quadrant is unchanged from prior imaging. No uterine or ovarian process identifiable. No evidence for appendicitis. Imaged portions of the liver, spleen and pancreas show no suspicious findings on non-contrast imaging . Gallbladder is absent. No biliary tree abnormality. No suspicious bowel findings. No hernia, mass or bulky lymphadenopathy noted. No free air, free fluid or inflammatory stranding. No significant bony abnormality. IMPRESSION: No hydronephrosis, obstructing calculus or acute finding identifiable. Isodense masses and pyelonephritis are not excluded on stone protocol technique. No acute GI or LAPELER process seen. Exam appears stable from 2018.
[2021-08-14] MEDS ORDERED: MORPHINE 4 MG/ML SYR ONE (14:27)
[2021-08-14] MEDS ORDERED: NA CHLORIDE 0.9% 1,000 ML ONE (14:27)
[2021-08-14] MEDS ORDERED: ONDANSETRON 4 MG/2 ML VIAL ONE (14:27)
[2021-08-14 14:33] LABS: ALT/SGPT 25 U/L (12-78); AST/SGOT 18 U/L (15-37); Albumin 4.1 g/dL (3.4-5.0); Alkaline Phosphatase 76 U/L (45-117); BUN Blood Urea Nitrogen 16 mg/dL (7-18); Bicarbonate 27 mmol/L (21-32); Bilirubin Direct < 0.1 mg/dL (0-0.2); Bilirubin Total 0.2 mg/dL (0.2-1.0); Glucose Level 104 mg/dL (74-106); Lipase 226 U/L (73-393); Potassium 3.4 mmol/L (3.5-5.1); Protein, Total 8.4 g/dL (6.4-8.2); Sodium Level 143 mmol/L (136-145)
[2021-08-14 14:37] LABS: Hematocrit 40.2 % (36.0-45.0); RBC Red Blood Cell Count 4.92 M/uL (3.86-4.86)
[2021-08-14 14:38] LABS: Absolute Lymphocytes (CBC) 2.8 K/uL (0.7-4.9); Basophils % 0.9 % (0-1.3); Lymphocytes % 32.8 % (15.3-44.8); MPV 8.6 fL (7.6-11.3)
[2021-08-14 14:39] LABS: Urine Specific Gravity/Preg >1.030 (1.005-1.030)
[2021-08-14] MEDS ORDERED: CEFTRIAXONE 1000 MG/VIAL ONE (14:40)
[2021-08-14] MEDS ORDERED: KETOROLAC 30 MG/ML INJ ONE (15:21)
--- NOTE | 2021-08-14 15:23 | EDPHYS ---
Physician Documentation [facility] Name: Dennis Kerr Age: 41 yrs Sex: Female : 1980 Arrival Date: 08/14/2021 Time: 13:03 Bed Treatment Private MD: ED Physician Pardeep Jean HPI: 08/14 15:50 This 41 yrs old Female presents to ER via Ambulatory with complaints of kb Possible Kidney Stone. 15:50 The patient complains of pain in the right flank. The pain does not radiate. Onset: The kb symptoms/episode began/occurred 4 day(s) ago. Modifying factors: The symptoms are alleviated by nothing. the symptoms are aggravated by nothing. Associated signs and symptoms: The patient has no apparent associated signs or symptoms. Severity of pain: At its worst the pain was moderate severe in the emergency department the pain is unchanged. The patient has not experienced similar symptoms in the past. The patient has not recently seen a physician. Pt reports right flank pain since Friday. STates she believes it is a kidney stone that is stuck because the pain is similar to previous stones, but isn't moving. - Immunization history:: Adult Immunizations up to date, Last tetanus immunization: < 5 years ago Flu vaccine is up to date. ROS: 15:49 Constitutional: Negative for fever, chills, and weight loss. kb 15:49 Back: Positive for flank pain, on the right. 15:49 All other systems are negative. Exam: 15:50 Constitutional: This is a well developed, well nourished patient who is awake, alert, kb and in no acute distress. Head/Face: Normocephalic, atraumatic. ENT: Moist Mucous membranes Respiratory: Respirations even and unlabored. No increased work of breathing, no retractions or nasal flaring. Skin: Warm, dry with normal turgor. Normal color. MS/ Extremity: Pulses equal, no cyanosis. Neurovascular intact. Full, normal range of motion. Neuro: Awake and alert, GCS 15, oriented to person, place, time, and situation. Moves all extremities. Normal gait. Psych: Awake, alert, with orientation to person, place and time. Behavior, mood, and affect are within normal limits. 15:50 Back: pain, that is moderate, of the right flank, ROM is normal, normal spinal alignment noted, CVA tenderness, that is mild, is noted on the right. Vital Signs: 13:12 Pulse 124; Resp 22; Temp 97.2; Pulse Ox 100% ; Weight 83.91 kg; Height 5 ft. 5 in. tc5 (165.10 cm); Pain 10/10; 13:16 BP 153 / 101; tc5 14:51 BP 149 / 108; Pulse 102; Resp 19; Temp 98.5(O); Pulse Ox 99% on R/A; oh 14:52 BP 147 / 95; oh 13:12 Body Mass Index 30.79 (83.91 kg, 165.10 cm) tc5 MDM: 13:21 Patient medically screened. kb 15:49 Data reviewed: vital signs, nurses notes. Data interpreted: Pulse oximetry: on room air kb is 99 %. Interpretation: normal. Counseling: I had a detailed discussion with the patient and/or guardian regarding: the historical points, exam findings, and any diagnostic results supporting the discharge/admit diagnosis, lab results, radiology results, the need for outpatient follow up, a family practitioner, to return to the emergency department if symptoms worsen or persist or if there are any questions or concerns that arise at home. 15:49 Differential diagnosis: nephrolithiasis, pyelonephritis, UTI. kb 08/14 13:18 Order name: Urine Microscopic Only; Complete Time: 14:08 kb 08/14 13:37 Order name: Urine Dipstick-Ancillary; Complete Time: 13:42 EDMS 08/14 13:41 Order name: Urine --Ancillary (enter results) bd 08/14 13:41 Order name: Urine --Ancillary; Complete Time: 14:42 EDMS 08/14 13:44 Order name: Basic Metabolic Panel; Complete Time: 14:36 kb 08/14 13:44 Order name: CBC with Diff; Complete Time: 14:42 kb 08/14 13:18 Order name: CT Stone Protocol; Complete Time: 14:08 kb 08/14 13:44 Order name: Hepatic Function; Complete Time: 14:36 kb 08/14 13:44 Order name: Lipase; Complete Time: 14:36 kb 08/14 13:18 Order name: Urine Dipstick-Ancillary (obtain specimen); Complete Time: 13:46 kb 08/14 13:18 Order name: Urine Test (obtain specimen); Complete Time: 13:46 kb 08/14 13:44 Order name: IV Saline Lock; Complete Time: 14:00 kb 08/14 13:44 Order name: Labs collected and sent; Complete Time: 14:00 kb 08/14 14:43 Order name: Vital Signs; Complete Time: 14:51 kb Administered Medications: 14:00 Drug: NS 0.9% 1000 ml Route: IV; Rate: 1000 ml; Site: left antecubital; oh 14:00 Drug: Zofran (Ondansetron) 4 mg Route: IVP; Site: left antecubital; oh 14:18 Follow up: Response: No adverse reaction oh 14:00 Drug: morphine 4 mg Route: IVP; Site: left antecubital; oh 14:19 Follow up: Response: No adverse reaction oh 14:18 Drug: Rocephin (cefTRIAXone) 1 grams Route: IV; Rate: calculated rate; Site: left oh antecubital; 14:58 Drug: Ketorolac 30 mg Route: IVP; Site: left antecubital; oh Disposition Summary: 08/14/21 15:22 Discharge Ordered Location: Home kb Condition: Stable kb Diagnosis - UTI/ Urinary tract infection, site not specified kb Followup: kb - With: Emergency Department - When: As needed - Reason: Worsening of condition Followup: kb - With: Private Physician - When: 2 - 3 days - Reason: Recheck today's complaints, Continuance of care, Re-evaluation by your physician Discharge Instructions: - Discharge Summary Sheet kb - Urinary Tract Infection, Adult, [id number] kb Forms: - Medication Reconciliation Form kb - Thank You Letter kb - Antibiotic Education kb - Prescription Opioid Use kb Prescriptions: - Augmentin 875-125 mg Oral Tablet - take 1 tablet by ORAL route every 12 hours for 10 days; 20 tablet; Refills: 0, kb Product Selection Permitted - Zofran 4 mg Oral Tablet - take 1 tablet by ORAL route every 6 hours As needed; 20 tablet; Refills: 0, kb Product Selection Permitted - Diclofenac Sodium 75 mg Oral tablet,delayed release (DR/EC) - take 1 tablet by ORAL route 2 times per day As needed; 30 tablet; Refills: 0, kb Product Selection Permitted Addendum: 08/17/2021 08:34 Co-signature as Attending Physician, Pardeep Jean MD I agree with the assessment and r n plan of care. Attestation: The patient's history, exam findings, diagnostics, and a summary of any interventions or procedures was reviewed in detail with Denae MOHAN. Signatures: Dispatcher [employer] EDDenae Durbin, KIMBERLEE TECHN[employer]Y PROFESSIONAL-CkPardeep Guzmán MD MD rn Harriott, Oneka RN BELLA pa Barbara Shore RN RN tc5
--- NOTE | 2021-08-14 15:23 | ER ---
Nurse's Notes [facility] Name: Dennis Kerr Age: 41 yrs Sex: Female : 1980 Arrival Date: 08/14/2021 Time: 13:03 Bed Treatment Private MD: Diagnosis: UTI/ Urinary tract infection, site not specified Presentation: 08/14 13:12 Chief complaint: Patient states: Thinks she has a kidney stone, rt side flank/abd pain tc5 x 2 days, HX of kidney stones. pt reports she has left side abd pain today. Coronavirus screen: Vaccine status: Patient reports receiving the 2nd dose of the covid vaccine. Client denies travel out of the [place] in the last 14 days. At this time, the client does not indicate any symptoms associated with coronavirus-19. Ebola Screen: No symptoms or risks identified at this time. Risk Assessment: Do you want to hurt yourself or someone else? Patient reports no desire to harm self or others. Onset of symptoms was August 12, 2021 at 12:00. 13:12 Method Of Arrival: Ambulatory tc5 13:12 Acuity: JEN 3 tc5 Triage Assessment: 14:00 General: Appears distressed, Behavior is calm, cooperative, appropriate for age. oh - Immunization history:: Adult Immunizations up to date, Last tetanus immunization: < 5 years ago Flu vaccine is up to date. Screenin:11 Abuse screen: Denies threats or abuse. Nutritional screening: No deficits noted. oh Tuberculosis screening: No symptoms or risk factors identified. Fall Risk None identified. Assessment: 14:11 : Reports pain in right flank(s), pt thinks she may have a kidney stone. oh Vital Signs: 13:12 Pulse 124; Resp 22; Temp 97.2; Pulse Ox 100% ; Weight 83.91 kg; Height 5 ft. 5 in. tc5 (165.10 cm); Pain 10/10; 13:16 BP 153 / 101; tc5 14:51 BP 149 / 108; Pulse 102; Resp 19; Temp 98.5(O); Pulse Ox 99% on R/A; oh 14:52 BP 147 / 95; oh 13:12 Body Mass Index 30.79 (83.91 kg, 165.10 cm) tc5 ED Course: 13:03 Patient arrived in ED. as 13:16 Triage completed. tc5 13:18 Denae Myers FNP-C is [facility]. kb 13:18 Pardeep Jean MD is Attending Physician. kb 13:31 Karyn Grey, RN is Primary Nurse. oh 13:35 CT Stone Protocol In Process Unspecified. EDMS 13:59 Inserted saline lock: 20 gauge in left antecubital area, using aseptic technique. Blood dh4 collected. 14:11 Bed in low position. Call light in reach. oh 15:55 IV discontinued, bleeding controlled, Pressure dressing applied. oh Administered Medications: 14:00 Drug: NS 0.9% 1000 ml Route: IV; Rate: 1000 ml; Site: left antecubital; oh 14:00 Drug: Zofran (Ondansetron) 4 mg Route: IVP; Site: left antecubital; oh 14:18 Follow up: Response: No adverse reaction oh 14:00 Drug: morphine 4 mg Route: IVP; Site: left antecubital; oh 14:19 Follow up: Response: No adverse reaction oh 14:18 Drug: Rocephin (cefTRIAXone) 1 grams Route: IV; Rate: calculated rate; Site: left oh antecubital; 14:58 Drug: Ketorolac 30 mg Route: IVP; Site: left antecubital; oh Outcome: 15:22 Discharge ordered by . kb 15:55 Discharged to home oh 15:55 Condition: stable 15:55 Discharge instructions given to patient, Prescriptions given X 15:56 Patient left the ED. oh Signatures: Dispatcher [employer] EDSD Denae Myers FNP-C FNP-Ckb Martinez, Amelia as Huhn, Donald dh4 Karyn Grey, RN RN oh Barbara Shore, RN RN tc5
[2021-08-14 16:09] VITALS: TEMP 98.5; O2SAT 99
[2021-08-14 16:10] VITALS: BP 147/95
== END 2021-08-14 15:56 | disposition home or self-care (01) ==
LOC: ER 13:02
DX: N39.0 Urinary tract infection, site not specified (principal)
CPT/HCPCS: 36415; 74176; 76377; 80048; 80076; 81003; 81015; 81025; 83690; 85025; 96374; 96375; 99284; J2405; J7030

== ENCOUNTER 2022-01-30 14:33 | Emergency (ER) | payer SELFPAY ==
--- OUTSIDE RECORDS SUMMARY | 2022-01-30 14:37 | XMS REPORT | Continuity of Care Document ---
:1980 Author Organization [facility] t Address [address] [place] [address] Care Team Providers Name Role Phone Kinsey Rockwell MD Primary Care Physician CHEN MART Attending Clinician Unavailable Elizabeth Mart DO Attending Clinician VEGA MOODY Attending Clinician Unavailable Doctor Unassigned, Name Attending Clinician Unavailable Anette Gaming NP Attending Clinician Sohail Barajas MD Attending Clinician Elizabeth MART Admitting Clinician Unavailable Payers Payer Name Policy Type Policy Number Effective Date Expiration Date [facility] [id number] 2018 [facility] MEDICAID 00:00:00 Problems Condition Condition Condition Status Onset Resolution [...] Added automatic ally from request for surgery [id number] Closed Closed Disease Active 2015-11 Methodi fracture fracture 0-05 st of left of left 00:00: Hospita ulna ulna 00 l No known No known Disease Unive rs active active ity of problems problems [facility] Allergies, Adverse Reactions, Alerts Allergy Allergy Status Severity Reaction(s) Onset Inactive Treating Comm ents Source Name Type Date Date Clinician Susannah Kenney Active Methodi ty to [address] adverse 00:00: Hospita reaction 00 l s to drug CODEINE DRUG Active Hives Univers INGREDI 1-15 ity of 00:00: [place] 00 Medical Branch Codeine Propensi Active Hives Univers ty to 1-15 ity of adverse 00:00: [place] reaction 00 Medical s Branch Family History Family Member Diagnosis Comments Start Date Stop Date Source Natural father Colon cancer [facility] Maternal grandfather Heart disease [facility] Maternal grandmother [facility] Natural mother No Known Problems Met [facility] Paternal grandfather [facility] Paternal grandmother [facility] Social History Social Habit Start Date Stop Date Quantity Comments Source Exposure to Not sure [facility] SARS-CoV-2 (event) [facility] History of tobacco Cigarette Smoker [facility] use [facility] Cigarettes smoked 2021-02-05 2021-02-[address] current (pack per 00:00:00 00:00:00 Hospita l day) - Reported Tobacco use and 2021-02-05 2021-02-05 Never used [facility] exposure 00:00:00 00:00:00 Hospital Alcohol intake 2021-02-05 2021-02-05 .14 /d [facility] 00:00:00 00:00:00 [facility] Tobacco Comment 2020-07-03 2020-07-03 quit 4 months [facility] dist 00:00:00 00:00:00 ago Hospital Alcohol Comment 2016-06-27 2016-06-27 socially [facility] 00:00:00 00:00:00 Hospital Sex [birth year] At [birth year] [facility] 00:00:00 00:00:00 Hospital Smoking Status Start Date Stop Date Source Unknown if ever smoked Universit y [facility] Former smoker 2021-02-05 00:00:00 2021-02-05 00:00:00 [facility] Medications Ordered Filled Start Stop Current Ordering Indication Dosage Frequency Signature Comments Components Source Medication Medication Date Date Medication? Clinician (SIG) Name Name FENTanyl PF 2020- No 50ug 50 mcg, Un lynn (SUBLIMAZE 08-08 Slow IV ity o f (PF)) 20:45: 19:57 Push, [place] injection 00 :00 ONCE, 1 Medical 50 mcg dose, On Fri08/08/21 at 1545, Routine NaCl 0.9% 2020- No 1000mL at 999 Uni vers (NS) bolus 08-08 mL/hr, ity of infusion 19:15: 20:49 1,000 mL, [place] 1,000 mL 00 :00 [facility] dose, On Fri08/08/21 at 1415, STAT morpHINE 2020-2020- No 4mg 4 mg, Slow Un lynn injection 4 08-08 IV Push, ity of mg 19:15: 18:21 ONCE, 1 [place] 00 :00 dose, On Fri08/08/21 at 1415, STAT ondansetron 2020-2020- No 4mg 4 mg, Slow Univers (ZOFRAN 08-08 IV Push, ity of (PF)) 19:15: 18:21 ONCE, 1 [place] injection 4 00 :00 dose, On Medi dilia mg Fri08/08/21 at 1415, ABENA butorphanol 2020- No 1mg 1 mg, IV U nivers (STADOL) 07-10 Push, ity of injection 1 23:45: 22:40 [place]CE[place] 1 [place] :[place] dose, [facility] 07/10/21 at Branch 1845, Routine butorphanol 2020-0 2020- No 1mg 1 mg, IV U nivers (STADOL) 07-10 Push, ity of injection 1 23:45: 22:40 [place]CE[place] 1 [place] mg [place] :[place] dose, [facility] 07/10/21 at Branch 1845, Routine NaCl 0.9% 2020- No 1000mL at 999 Uni vers (NS) bolus 07-10 mL/hr, ity of infusion 23:00: 23:10 1,000 mL, [place] 1,000 mL 00 :00 IV Medical Piggyback, [place] ONCE, 1 dose, [facility] 07/10/21 at 1800, STAT ondansetron 2020- No 4mg 4 mg, Slow Univers (ZOFRAN 07-10 IV Push, ity of (PF)) 23:00: 22:09 ONCE, 1 [place] injection 4 00 :00 dose, Tue Med ical mg 07/10/21 at Branch 1800, ABENA ketorolac 2020- No 30mg 30 mg, Unive rs (TORADOL) 07-10 Slow IV ity of injection 23:00: 22:09 Push, [place] 30 mg 00 :00 ONCE, 1 Medical dose, [facility] Branch 07/10/21 at 1800, Routine
community board member approving Restricted medication : MARLENI GAMING G NaCl 0.9% 2020- No 1000mL at 999 Uni vers (NS) bolus 07-10 mL/hr, ity of infusion 23:00: 23:10 1,000 mL, [place] 1,000 mL 00 :00 IV Medical Piggyback, Branch ONCE, 1 dose, [facility] 07/10/21 at 1800, STAT ondansetron 2020- No 4mg 4 mg, Slow Univers (ZOFRAN 07-10 IV Push, ity of (PF)) 23:00: 22:09 ONCE, 1 [place] injection 4 00 :00 dose, e Med ical mg 07/10/21 at Branch 1800, ABENA ketorolac 2020- No 30mg 30 mg, Unive rs (TORADOL) 07-10 Slow IV ity of injection 23:00: 22:09 Push, [place] 30 mg 00 :00 ONCE, 1 Medical dose, [facility] Branch 07/10/21 at 1800, Routine
community board member approving Restricted medication : AMBERLY MARLENI G ketorolac 2020-0 Yes [id number] 10mg Take 1 Un lynn 10 mg 8-31 tablet by ity of tablet 00:00: mouth [place] 00 every 6 Medical (six) Branch hours as needed for Pain (scale 1-3). ondansetron 2020-0 Yes [id number] 4mg Take 1 Univers (ZOFRAN 8-31 tablet by ity of ODT) 4 mg 00:00: mouth [place] disintegrat 00 every 8 Medic al ing tablet (eight) Branch hours as needed for Nausea and Vomiting (N/V). hydroCHLORO 2021-0 Yes [id number] 25mg Take 1 Univers thiazide 25 8-31 tablet by ity of mg tablet 00:00: mouth [place] 00 every Medical morning. Branch ketorolac 1-0 Yes [id number] 10mg Take 1 Un lynn 10 mg 8-31 tablet by ity of tablet 00:00: mouth [place] 00 every 6 Medical (six) Branch hours as needed for Pain (scale 1-3). ondansetron 2020-0 Yes [id number] 4mg Take 1 Univers (ZOFRAN 8-31 tablet by ity of ODT) 4 mg 00:00: mouth [place] disintegrat 00 every 8 Medic al ing tablet (eight) Branch hours as needed for Nausea and Vomiting (N/V). hydroCHLORO 2020-0 Yes [id number] 25mg Take 1 Univers thiazide 25 8-31 tablet by ity of mg tablet 00:00: mouth [place] 00 every Medical morning. Branch ketorolac 1-0 Yes [id number] 10mg Take 1 Un lynn 10 mg 8-31 tablet by ity of tablet 00:00: mouth [place] 00 every 6 Medical (six) Branch hours as needed for Pain (scale 1-3). ondansetron 1-0 Yes [id number] 4mg Take 1 Univers (ZOFRAN 8-31 tablet by ity of ODT) 4 mg 00:00: mouth [place] disintegrat 00 every 8 Medic al ing tablet (eight) Branch hours as needed for Nausea and Vomiting (N/V). hydroCHLORO 1-0 Yes [id number] 25mg Take 1 Univers thiazide 25 8-31 tablet by ity of mg tablet 00:00: mouth [place] 00 every Medical morning. Branch ketorolac 2021-0 Yes [id number] 10mg Take 1 Un lynn 10 mg 8-31 tablet by ity of tablet 00:00: mouth [place] 00 every 6 Medical (six) Branch hours as needed for Pain (scale 1-3). ondansetron 2021-0 Yes [id number] 4mg Take 1 Univers (ZOFRAN 8-31 tablet by ity of ODT) 4 mg 00:00: mouth [place] disintegrat 00 every 8 Medic al ing tablet (eight) Branch hours as needed for Nausea and Vomiting (N/V). hydroCHLORO Yes [id number] 25mg Take 1 Univers thiazide 25 8-31 tablet by ity of mg tablet 00:00: mouth [place] 00 every Medical morning. Branch ketorolac Yes [id number] 10mg Take 1 Un lynn 10 mg 8-31 tablet by ity of tablet 00:00: mouth [place] 00 every 6 Medical (six) Branch hours as needed for Pain (scale 1-3). ondansetron Yes [id number] 4mg Take 1 Univers (ZOFRAN 8-31 tablet by ity of ODT) 4 mg 00:00: mouth [place] disintegrat 00 every 8 Medic al ing tablet (eight) Branch hours as needed for Nausea and Vomiting (N/V). hydroCHLORO Yes [id number] 25mg Take 1 Univers thiazide 25 8-31 tablet by ity of mg tablet 00:00: mouth [place] 00 every Medical morning. Branch traMADoL 50 2020- No [id number] 50mg Take 1 Uni vers mg tablet 07-10-08 tablet by ity of 00:00: 04:59 mouth [place] 00 :00 every 6 Medical (six) Branch hours as needed for Pain (scale 4-6) or Pain (scale 7-10) for up to 7 days. Indication s: acute pain traMADoL 50 2020- No [id number] 50mg Take 1 Uni vers mg tablet 07-10-08 tablet by ity of 00:00: 04:59 mouth [place] 00 :00 every 6 Medical (six) Branch hours as needed for Pain (scale 4-6) or Pain (scale 7-10) for up to 7 days. Indication s: acute pain cyclobenzap 2020- No 5mg [id number] Take 1 Methodi rine 02-06 04-10 [id number] tablet (5 st (FLEXERIL) 00:00: 04:59 3D mg total) H ospita 5 mg tablet 00 :00 by mouth 3 l (three) times a day as needed for muscle spasms for up to 10 days. ketorolac 2017-11 Yes 10mg Take 1 Univer s 10 mg 1-09 tablet by ity of tablet 00:00: mouth 3 [place] 00 (three) Medical times Branch daily as needed for Pain (scale 7-10). ondansetron 2017-11 Yes 4mg Take 1 Univ ers (ZOFRAN 1-09 tablet by ity of ODT) 4 mg 00:00: mouth [place] disintegrat 00 every 8 Medic al ing tablet (eight) Branch hours as needed for Nausea and Vomiting (N/V). tamsulosin 2017-11 Yes .4mg Take 1 Unive rs 0.4 mg 24 1-09 capsule by ity of hr capsule 00:00: mouth at [place] 00 bedtime. Medical Branch traMADOL 2017-11 Yes 50mg Take 1 Univers (ULTRAM) 50 1-09 tablet by ity of mg tablet 00:00: mouth [place] 00 every 6 Medical (six) Branch hours as needed for Pain (scale 4-6). ketorolac 2017-11 Yes 10mg Take 1 Univer s 10 mg 1-09 tablet by ity of tablet 00:00: mouth 3 [place] 00 (three) Medical times Branch daily as needed for Pain (scale 7-10). ondansetron 2017-11 Yes 4mg Take 1 Univ ers (ZOFRAN 1-09 tablet by ity of ODT) 4 mg 00:00: mouth [place] disintegrat 00 every 8 Medic al ing tablet (eight) Branch hours as needed for Nausea and Vomiting (N/V). tamsulosin 2017-11 Yes .4mg Take 1 Unive rs 0.4 mg 24 1-09 capsule by ity of hr capsule 00:00: mouth at [place] 00 bedtime. Medical Branch traMADOL 2017-11 Yes 50mg Take 1 Univers (ULTRAM) 50 1-09 tablet by ity of mg tablet 00:00: mouth [place] 00 every 6 Medical (six) Branch hours as needed for Pain (scale 4-6). ketorolac 2017-11 No 10mg Take 1 Unive rs 10 mg 11-18-31 tablet by ity of tablet 00:00: 00:00 [...] needed for Nausea and Vomiting (N/V). tamsulosin 2017-11- No .4mg Take 1 Univ [...] No 4mg Take 1 Uni vers (ZOFRAN 11-18 tablet by ity of ODT) 4 mg 00:00: 00:00 mouth [place] disintegrat 00 :00 every 8 Medic al ing tablet (eight) Branch hours as needed for Nausea and Vomiting (N/V). tamsulosin 2017-11- No .4mg Take 1 Univ [...] hours as needed for Pain (scale 4-6). naproxen 2017-0 Yes 250mg Take 1 Univer s 250 mg 1-15 tablet by ity of tablet 00:00: mouth 2 00 (two) Medical times Branch daily with meals. naproxen 2017-0 Yes 250mg Take 1 Univer s 250 mg 1-15 tablet by ity of tablet 00:00: mouth 2 [place] 00 (two) Medical times Branch daily with meals. traMADOL 2017-0 Yes 50mg Take 1 Univers (ULTRAM) 50 1-15 tablet by ity of mg tablet 00:00: mouth [place] 00 every 6 Medical (six) Branch hours as needed for Pain (scale 4-6). Ravi Arellano PA-C / Nicko Coe MD BRYAN# [id number] DPS# [id number] x Lic.# [id number] NPI# [id number] cyclobenzap 2017-0 Yes 5mg Take 1 Univ ers rine 5 mg 1-15 tablet by ity o f tablet 00:00: mouth 3 [place] 00 (three) Medical times Branch daily. traMADOL 2017-0 Yes 50mg Take 1 Univers (ULTRAM) 50 1-15 tablet by ity of mg tablet 00:00: mouth [place] 00 every 6 Medical (six) Branch hours as needed for Pain (scale 4-6). Ravi Arellano PA-C / Nicko Coe MD BRYAN# [id number] DPS# [id number] x Lic.# [id number] NPI# [id number] cyclobenzap 2017-0 Yes 5mg Take 1 Univ ers rine 5 mg 1-15 tablet by ity o f tablet 00:00: mouth 3 [place] 00 (three) Medical times Branch daily. naproxen 2016-2020- No 250mg Take 1 Unive rs 250 mg 11-24 tablet by ity of tablet 00:00: 00:00 mouth 2 [place] 00 :00 (two) Medical times Branch daily with meals. traMADOL 2016-0 2020- No 50mg Take 1 Univer s (ULTRAM) 50 -15 - tablet by it y of mg tablet 00:00: 00:00 mouth [place] 00 :00 every 6 Medical (six) Branch hours as needed for Pain (scale 4-6). Ravi Arellano PA-C / Nicko Coe MD BRYAN# [id number] DPS# [id number] x Lic.# [id number] NPI# [id number] cyclobenzap 2017-0 2020- No 5mg Take 1 Uni vers rine 5 mg -15 - tablet by ity of tablet 00:00: 00:00 mouth 3 [place] 00 :00 (three) Medical times Branch daily. naproxen 2017-0 2020- No 250mg Take 1 Unive rs 250 mg 07-10 tablet by ity of tablet 00:00: 00:00 mouth 2 [place] 00 :00 (two) Medical times Branch daily with meals. traMADOL No 50mg Take 1 Univer s (ULTRAM) 50 11-24 tablet by it y of mg tablet 00:00: 00:00 mouth [place] 00 :00 every 6 Medical (six) Branch hours as needed for Pain (scale 4-6). Ravi Arellano PA-C / Nicko Coe MD BRYAN# [id number] [facility]# [id number] x Lic.# [id number] [facility]# [id number] cyclobenzap 2020- No 5mg Take 1 Uni vers rine 5 mg 11-24 tablet by ity of tablet 00:00: 00:00 mouth 3 [place] 00 :00 (three) Medical times Branch daily. cyclobenzap 2015-11 Yes 5mg Take 1 Univ ers rine 0-14 tablet by ity of (FLEXERIL) 00:00: mouth 3 [place] 5 mg tablet 00 (three) Medic al times Branch daily. cyclobenzap 2015-11 Yes 5mg Take 1 Univ ers rine 0-14 tablet by ity of (FLEXERIL) 00:00: mouth 3 [place] 5 mg tablet 00 (three) Medic al times Branch daily. cyclobenzap 2015-11- No 5mg Take 1 Uni vers rine 0-14 - tablet by ity of (FLEXERIL) 00:00: 00:00 mouth 3 [place] 5 mg tablet 00 :00 (three) Medic al times Branch daily. cyclobenzap 2015-11- No 5mg Take 1 Uni vers rine 0-14 -31 tablet by ity of (FLEXERIL) 00:00: 00:00 mouth 3 [place] 5 mg tablet 00 :00 (three) Medic al times Branch daily. Vital Signs Vital Name Observation Time Observation Value Comments Source Systolic blood 2021-12-27 17:36:00 176 mm[Hg] Univer sity of pressure [facility] Diastolic blood 2021-12-27 17:36:00 144 mm[facility]Hg] [facility] Heart rate 2021-12-27 17:36:00 109 /min [facility] Body temperature 2021-12-27 17:36:00 36.67 Padmini Univ ersity of [place] [facility] Respiratory rate 2021-12-27 17:36:00 18 /min Univ ersity [facility] [place] [facility] Body weight 2021-12-27 17:36:00 81.647 kg Universi ty [facility] [place] [facility] BMI 2021-12-27 17:36:00 29.95 kg/m2 Universi ty [facility] [place] [facility] Oxygen saturation in 2021-12-27 17:36:00 99 /min University of Arterial blood by [place] Ellie dilia Pulse oximetry Branch Systolic blood 2021-08-08 20:00:00 143 mm[Hg] Univer sity of pressure [place] [facility] Diastolic blood 2021-08-08 20:00:00 94 mm[Hg] Unive rsity of pressure [place] [facility] Heart rate 2021-08-08 20:00:00 92 /min Universi ty [facility] [place] [facility] Respiratory rate 2021-08-08 20:00:00 21 /min Univ ersity [facility] [place] [facility] Oxygen saturation in 2021-08-08 20:00:00 98 /min University of Arterial blood by [place] Ellie dilia Pulse oximetry Branch Body temperature 2021-08-08 18:04:00 37.5 Padmini Univ ersity [facility] [place] [facility] Body weight 2021-08-08 18:04:00 81.647 kg [facility]i [facility] [place] [facility] BMI 2021-08-08 18:04:00 29.95 kg/m2 [facility] [place] [facility] Systolic blood 2021-07-10 23:45:00 134 mm[Hg] Univer sity of pressure [place] [facility] Diastolic blood 2021-07-10 23:45:00 103 mm[Hg] Unive rsity of pressure [place] [facility] Heart rate 2021-07-10 23:45:00 75 /min Universi ty [facility] [place] [facility] Respiratory rate 2021-07-10 23:45:00 16 /min Univ ersity [facility] [place] [facility] Oxygen saturation in 2021-07-10 23:45:00 98 /min University of Arterial blood by [place] Ellie dilia Pulse oximetry Branch Body temperature 2021-07-10 21:51:00 36.78 Padmini Univ ersity [facility] [place] [facility] Body weight 2021-07-10 21:51:00 81.647 kg Universi ty [facility] [place] [facility] BMI 2021-07-10 21:51:00 29.95 kg/m2 Universi [facility] Systolic blood 2021-02-06 05:53:00 153 mm[Hg] Method ist [facility] pressure Diastolic blood 2021-02-06 05:53:00 88 mm[facility]Hg[facility] pressure Heart rate 2021-02-06 05:53:00 85 /min [facility] Body temperature 2021-02-06 05:53:[address] [facility] Respiratory rate 2021-02-06 05:53:00 18 /min [facility] Oxygen saturation in 2021-02-06 05:53:00 98 /min [facility] Arterial blood by Pulse oximetry Body height 2021-02-06 02:41:[address] [facility] Body weight 2021-02-06 02:41:[address] [facility] BMI 2021-02-06 02:41:00 29.95 kg/m2 [facility] Procedures Procedure Date / Time Performing Clinician Source Performed XR ELBOW >3 VW LEFT 2021-12-27 18:06:12 Chen Mart [facility] CONSENT/REFUSAL FOR 2021-12-27 17:33:36 [facility]igned, [facility] Name [facility] CT ABDOMEN PELVIS WO 2021-08-08 18:42:00 Chen Mart [facility] POCT TEST 2021-08-08 18:20:00 Chen Mart [facility] COMP. METABOLIC PANEL 2021-08-08 18:18:00 Chen Mart [facility] ([id number]) [facility] CBC WITH DIFF 2021-08-08 18:18:00 Chen Mart [facility] URINALYSIS 2021-08-08 18:18:00 Chen Mart [facility] CONSENT/REFUSAL FOR 2021-08-08 18:00:08 Doctor Unassigned, No [facility]REATMENT Name [facility] CT ABDOMEN PELVIS WO 2021-07-10 22:54:34 Marleni Gaming [facility] POCT TEST 2021-07-10 22:08:00 Marleni Gaming [facility] HEPATIC FUNCTION PANEL 2021-07-10 22:02:00 Marleni Gaming [facility] ([id number]) (ALB,T.PRO,BILI Medical Branch T,BU/BC,ALT,AST,ALK PHOS) BASIC METABOLIC PANEL 2021-07-10 22:02:00 Marleni Gaming [facility] (NA, K, CL, CO2, Medical Branch GLUCOSE, BUN, CREATININE, CA) CBC WITH DIFF 2021-07-10 22:02:00 Marleni Gaming [facility] URINALYSIS 2021-07-10 22:02:00 Marleni Gaming [facility] NOTICE OF PRIVACY 2021-07-10 21:46:47 Doctor Unassigned, No [facility] PRACTICES Name [facility] CONSENT/REFUSAL FOR 2021-07-10 21:46:34 Doctor Unassigned, No [facility] DIAGNOSIS AND TREATMENT Name [facility] URINALYSIS 2021-02-06 05:04:00 [facility] HCG QUALITATIVE, URINE 2021-02-06 05:04:00 [facility] SCREEN CT RENAL STONE PROTOCOL 2021-02-06 03:51:49 [facility] HC COMPLETE BLD COUNT 2021-02-06 02:58:00 [facility] W/AUTO DIFF COMPREHENSIVE METABOLIC 2021-02-06 02:58:00 [facility] PANEL AMYLASE LEVEL 2021-02-06 02:58:00 [facility] LACTIC ACID, I-STAT 2021-02-06 02:58:00 [facility] ESTIMATED GFR 2021-02-06 02:58:00 [facility] Plan of Care Planned Activity Planned Date Details Comments Source Future Scheduled Test COVID-19 VACCINE (1) [facility] [code = COVID-19 VACCINE (1)] Future Scheduled Test Hepatitis C screening [facility] (procedure) [code = 261601178] Future Scheduled Test Screening for [facility] malignant neoplasm of cervix (procedure) [code = 194351547] Future Scheduled Test INFLUENZA VACCINE [facility] [code = INFLUENZA VACCINE] Encounters Start End Encounter Admission Attending Care Care Encounter Source Date/Time Date/Time Type Type Clinicians Facility Department ID 2021-12-27 2021-12-27 [facility] [id number] Univers 11:39:00 12:50:00 CHEN ity of [facility] 2021-12-27 2021-12-27 [facility] [id number] Univers 11:39:00 12:50:00 Chen GONZALEZ [id number] ity of [place] 4.2.7.2.686 [facility] [id number] [facility] 084 Branch 2021-10-19 2021-10-19 Emergency E ALCANTER, MHSE MHSE [id number] 11:41:00 19:23:00 [facility] 2021-08-08 2021-08-08 [facility] [id number] Univers 13:08:00 15:50:00 Chen Gonzalez [id number] ity of [place] 4.2.7.2.686 [facility] [id number] [facility] 084 Branch 2021-08-08 2021-08-08 Emergency [facility] [id number] Univers 13:00:00 13:00:00 ity of [facility] 2021-08-08 2021-08-08 Orders Doctor PIZARRO [id number] [id number] Univers 00:00:00 00:00:00 Only Unassigned, ELIER [id number] ity of [place] [facility] 4.2.7.2.686 [facility] [id number] [facility] 009 Branch 2021-07-10 2021-07-10 Emergency Amberly [facility] [id number] Univers 16:53:00 19:21:00 Marleni Gonzalez [id number] ity of [place] 4.2.7.2.686 [facility] [id number] [facility] 084 Branch 2021-07-10 2021-07-10 Emergency X [facility] [id number] Univers 16:47:00 16:47:00 ity of [facility] 2021-07-10 2021-07-10 Orders Doctor MOIRA [id number] [id number] Univers 00:00:00 00:00:00 Only Unassigned, ELIER [id number] [facility] 4.2.7.2.686 [facility] [id number] [facility] 009 Branch 2021-02-05 2021-02-06 Emergency Gokal, 1.2.840.1 [id number] Methodi 21:38:00 00:57:[address] [facility] 3.430.2.7 Hospit a .[id number] l .8 2021-02-05 2021-02-05 Travel 1.2.840.1 [id number] [id number] Methodi 00:00:00 00:00:[address] 3.430.2.7 0.2.7.3.698 Ho spita .[id number] 084.8 l .8 2019-06-08 2019-06-08 Outpatient E [facility]SE MED [id number] 20:15:00 20:15:[address] [facility] 2019-04-03 2019-04-03 Emergency E [facility] MED [id number] 19:08:00 19:08:[address] [facility] Results Test Description Test Time Test Comments Results Result Comments Source COMP. METABOLIC PANEL ([id number]) 2021-08-08 18:47:31 Test Item Value Reference Range Interpretation Comme nts NA (test code = 9785073092) 138 mmol/L 135-145 K (test code = 6861389632) 3.7 mmol/L 3.5-5.0 CL (test code = 7194511475) 106 mmol/L 98-108 CO2 TOTAL (test code = 4407126492) 23 mmol/L 23-31 AGAP (test code = 4509955211) 2-16 BUN (test code = 4342229981) 8 mg/dL 7-23 GLUCOSE (test code = 6429123749) 113 mg/dL 70-110 H CREATININE (test code = 0.62 mg/dL 0.50-1.04 5092459497) TOTAL BILI (test code = 0.5 mg/dL 0.1-1.3 8475751567) CALCIUM (test code = 6625165287) 9.2 mg/dL 8.6-10.6 T PROTEIN (test code = 7341914123) 7.6 g/dL 6.3-8.2 ALBUMIN (test code = 9342619741) 4.4 g/dL 3.5-5.0 ALK PHOS (test code = 3276160842) 57 U/L 34-122 ALTv (test code = 1742-6) 17 U/L 5-35 AST(SGOT) (test code = 0899321313) 27 U/L 13-40 eGFR (test code = 2848057985) mL/min/1.73m2 IFEANYI (test code = IFEANYI) Association of Glomerular Filtration Rate (GFR) and Staging of Kidney Disease* + +-------- + ------+| GFR (mL/min/1.73 m2) ?| With Kidney Damage ?| ?Without Kidney Damage+ +-- + +| ?>90 ?| ?Stage one ?| ? Normal ?+ +------- + -------+| ?60-89 ?| ?Stage two ?| ? Decreased GFR ? + +-------- + ------+| ?30-59 ?| ?Stage three ?| ? Stage three ? + +-------- + ------+| ?15-29 ?| ?Stage four ? | ? Stage four ?+ +------- + -------+| ?<15 (or dialysis) ? ?| ?Stage five ? | ? Stage five ?+ +------- + -------+ *Each stage assumes the associated GFR level has been in effect for at least three months. ?Stages 1 to 5, with or without kidney disease, indicate chronic kidney disease. Notes: Determination of stages one and two (with eGFR >59mL/min/1.73 m2) requires estimation of kidney damage for at least three months as defined by structural or functional abnormalities of the kidney, manifested by either:Pathological abnormalities or Markers of kidney damage (including abnormalities in the composition of the blood or urine or abnormalities in imaging tests). Lab Interpretation (test code = Abnormal 17627-4) [facility] WITH [id number] 18:35:10 Test Item Value Reference Range Interpretation Comments [...] as normal/abnormal . HGB (test code = 12.9 g/dL 11.6-15.0 718-7) HCT (test code = 38.9 % 35.7-45.2 4544-3) MCV (test code = 81.4 fL 80.6-95.5 787-2) MCH (test code = 27.0 pg 25.9-32.8 785-6) MCHC (test code = 33.2 g/dL 31.6-35.1 786-4) RDW-SD (test code = 45.5 fL 39.0-49.9 98979-4) RDW-CV (test code = 15.3 % 12.0-15.5 788-0) PLT (test code = See_Comment H [Automated 777-3) message] The sy stem which generated this result transmitted reference range : 166 - 358 10*3/ ?L. The reference r teresa was not used to interpret this result as normal/abnormal . MPV (test code = 10.2 fL 9.5-12.9 44001-5) NRBC/100 WBC (test See_Comment [Automat ed code = 3111276522) message] The system which generated this result transmitted reference range : 0.0 - 10.0 /100 WBCs. The refer ence range was not u sed to interpret th is result as normal/abnormal . NRBC x10^3 (test code <0.01 See_Comment [Auto mated = 4443931689) message] The s ystem which generated this result transmitted reference range : 10*3/?L. The reference range was not used to interpret this result as normal/abnormal . GRAN MAT (NEUT) % 59.5 % (test code = 770-8) IMM GRAN % (test code 0.50 % = 9560303848) LYMPH % (test code = 28.7 % 736-9) MONO % (test code = 8.0 % 5905-5) EOS % (test code = 2.6 % 713-8) BASO % (test code = 0.7 % 706-2) GRAN MAT x10^3(ANC) 5.26 10*3/uL 1.88-7.09 (test code = 4728881560) IMM GRAN x10^3 (test 0.04 10*3/uL 0.00-0.06 code = 2189131993) LYMPH x10^3 (test code 2.54 10*3/uL 1.32-3.29 = 731-0) MONO x10^3 (test code 0.71 10*3/uL 0.33-0.92 = 742-7) EOS x10^3 (test code = 0.23 10*3/uL 0.03-0.39 711-2) BASO x10^3 (test code 0.06 10*3/uL 0.01-0.07 = 704-7) Lab Interpretation Abnormal (test code = 51213-2) [id number]00 Test Item Value Reference Range Interpretation Comments POCT PREG (test code = 1605) negative On board controls acceptable with present C Line (test code = 3574) POCT PREG LOT # (test code = 3575) [id number] POCT PREG TEST DATE (test 11/09/2022 code = 3576) Lab Interpretation (test code = Normal 10329-4) [facility] 22:49:29 Test Item Value Reference Range Interpretation Comments APPEARANCE (test code = Cloudy Clear A 6011379816) COLOR (test code = Yellow Yellow 2763589826) PH (test code = 4.8-8.0 7705956202) SP GRAVITY (test code = 1.003-1.030 4101519808) GLU U QUAL (test code = Normal Normal 0919787485) BLOOD (test code = Negative Negative 6727342303) KETONES (test code = Negative Negative 5407356943) PROTEIN (test code = Negative Negative 2887-8) UROBILIN (test code = Normal Normal 5150750279) BILIRUBIN (test code = Negative Negative 6107158126) NITRITE (test code = Negative Negative 7464341696) LEUK IRMA (test code = Negative Negative 3168055380) RBC/HPF (test code = See_Comment [Autom ated message] 3050352308) The system [employer] generated this result transmitted ref erence range: 0 - 3 HP F. The reference range was not used to int erpret this result as normal/abnormal . WBC/HPF (test code = See_Comment [Autom ated message] 0581864916) The system [employer] generated this result transmitted ref erence range: 0 - 5 HP F. The reference range was not used to int erpret this result as normal/abnormal . BACTERIA (test code = Moderate Negative A 7053104646) MUCOUS (test code = Moderate Negative LPF A 0800721827) SQ EPITH (test code = HPF 1740365363) Lab Interpretation (test Abnormal code = 32202-8) [facility] 22:49:29 Test Item Value Reference Range Interpretation Comments APPEARANCE (test code = Cloudy Clear A 4127003807) COLOR (test code = Yellow Yellow 7321879293) PH (test code = 4.8-8.0 1570362582) SP GRAVITY (test code = 1.003-1.030 2464541283) GLU U QUAL (test code = Normal Normal 0834373376) BLOOD (test code = Negative Negative 2527281517) KETONES (test code = Negative Negative 9618845476) PROTEIN (test code = Negative Negative 2887-8) UROBILIN (test code = Normal Normal 9271838748) BILIRUBIN (test code = Negative Negative 1129644245) NITRITE (test code = Negative Negative 7368369523) LEUK IRMA (test code = Negative Negative 2089811324) RBC/HPF (test code = See_Comment [Autom ated message] 8745432239) The system [employer] generated this result transmitted ref erence range: 0 - 3 HP F. The reference range was not used to int erpret this result as normal/abnormal . WBC/HPF (test code = See_Comment [Autom ated message] 9420923973) The system [employer] generated this result transmitted ref erence range: 0 - 5 HP F. The reference range was not used to int erpret this result as normal/abnormal . BACTERIA (test code = Moderate Negative A 2550900589) MUCOUS (test code = Moderate Negative LPF A 2723519652) SQ EPITH (test code = HPF 4218213375) Lab Interpretation (test Abnormal code = 71891-6) [facility] (39838[facility] (ALB,T.PRO,BILI T,BU/BC,ALT,AST,ALK PHOS)2021-07-10 22:45:49 Test Item Value Reference Range Interpretation Comments TOTAL BILI (test code = 9814172649) 0.4 mg/dL 0.1-1.1 BILI UNCON (test code = 6595763353) 0.2 mg/dL 0.1-1.1 BILI CONJ (test code = 7117950264) 0.0 mg/dL 0.0-0.3 T PROTEIN (test code = 1519411588) 7.5 g/dL 6.3-8.2 ALBUMIN (test code = 7693416849) 4.4 g/dL 3.5-5.0 ALK PHOS (test code = 0243356717) 55 U/L 34-122 ALTv (test code = 1742-6) 18 U/L 5-35 AST(SGOT) (test code = 0511467093) 24 U/L 13-40 Lab Interpretation (test code = Normal 69433-5) [facility] (35343[facility] (ALB,T.PRO,BILI T,BU/BC,ALT,AST,ALK PHOS)2021-07-10 22:45:49 Test Item Value Reference Range Interpretation Comments TOTAL BILI (test code = 5231263564) 0.4 mg/dL 0.1-1.1 BILI UNCON (test code = 9632740504) 0.2 mg/dL 0.1-1.1 BILI CONJ (test code = 2160503303) 0.0 mg/dL 0.0-0.3 T PROTEIN (test code = 1190411729) 7.5 g/dL 6.3-8.2 ALBUMIN (test code = 6846149341) 4.4 g/dL 3.5-5.0 ALK PHOS (test code = 2346633754) 55 U/L 34-122 ALTv (test code = 1742-6) 18 U/L 5-35 AST(SGOT) (test code = 7421974926) 24 U/L 13-40 Lab Interpretation (test code = Normal 58095-1) [facility] METABOLIC PANEL (NA, K, CL, CO2, GLUCOSE, BUN, CREATININE, CA)2021-07-10 22:20:21 Test Item Value Reference Range Interpretation Comments NA (test code = 139 mmol/L 135-145 7641694019) K (test code = 3.9 mmol/L 3.5-5.0 7101881647) CL (test code = 107 mmol/L 98-108 2122527131) CO2 TOTAL (test code 23 mmol/L 23-31 = 8276580673) AGAP (test code = 2-16 4158037012) BUN (test code = 12 mg/dL 7-23 7435154658) GLUCOSE (test code = 106 mg/dL 70-110 5788372535) CREATININE (test code 0.54 mg/dL 0.50-1.04 = 3156624154) CALCIUM (test code = 8.8 mg/dL 8.6-10.6 1017703824) eGFR (test code = mL/min/1.73m2 2686267655) IFEANYI (test code = IFEANYI) Association of Glomerular Filtration Rate (GFR) and Staging of Kidney Disease* + + +- +| GFR (mL/min/1.73 m2) ?| With Kidney Damage ?| ?Without Kidney Damage+ ------+ ----+ ------+| ?>90 ?| ?Stage one ?| ? Normal ?+ -+ + -+| ?60-89 ?| ?Stage two ?| ? Decreased GFR ? + + +- +| ?30-59 ?| ?Stage three ?| ? Stage three ? + + +- +| ?15-29 ?| ?Stage four ? | ? Stage four ?+ -+ + -+| ?<15 (or dialysis) ? ?| ?Stage five ? | ? Stage five ?+ -+ + -+ *Each stage assumes the associated GFR level has been in effect for at least three months. ?Stages 1 to 5, with or without kidney disease, indicate chronic kidney disease. Notes: Determination of stages one and two (with eGFR >59mL/min/1.73 m2) requires estimation of kidney damage for at least three months as defined by structural or functional abnormalities of the kidney, manifested by either:Pathological abnormalities or Markers of kidney damage (including abnormalities in the composition of the blood or urine or abnormalities in imaging tests). [facility] METABOLIC PANEL (NA, K, CL, CO2, GLUCOSE, BUN, CREATININE, CA)2021-07-10 22:20:21 Test Item Value Reference Range Interpretation Comments NA (test code = 5045444923) 139 mmol/L 135-145 K (test code = 1010192373) 3.9 mmol/L 3.5-5.0 CL (test code = 8001474083) 107 mmol/L 98-108 CO2 TOTAL (test code = 6001424072) 23 mmol/L 23-31 AGAP (test code = 0995041349) 2-16 BUN (test code = 8786812071) 12 mg/dL 7-23 GLUCOSE (test code = 6698831391) 106 mg/dL 70-110 CREATININE (test code = 0.54 mg/dL 0.50-1.04 2639493533) CALCIUM (test code = 8972638100) 8.8 mg/dL 8.6-10.6 eGFR (test code = 9679501522) mL/min/1.73m2 IFEANYI (test code = IFEANYI) [facility] WITH [id number] 22:15:01 Test Item Value Reference Range Interpretation Comments WBC (test code = See_Comment [Automated 4945-2) message] The sy stem which generated this [...] RDW-SD (test code = 45.0 fL 39.0-49.9 81732-4) RDW-CV (test code = 15.1 % 12.0-15.5 788-0) PLT (test code = See_Comment [Automated 777-3) message] The sy stem which generated this result transmitted reference range : 166 - 358 10*3/ ?L. The reference r teresa was not used to interpret this result as normal/abnormal . MPV (test code = 10.5 fL 9.5-12.9 44841-1) NRBC/100 WBC (test See_Comment [Automat ed code = 5336823406) message] The system which generated this result transmitted reference range : 0.0 - 10.0 /100 WBCs. The refer ence range was not u sed to interpret th is result as normal/abnormal . NRBC x10^3 (test code <0.01 See_Comment [Auto mated = 9022088833) message] The s ystem which generated this result transmitted reference range : 10*3/?L. The reference range was not used to interpret this result as normal/abnormal . GRAN MAT (NEUT) % 46.8 % (test code = 770-8) IMM GRAN % (test code 0.20 % = 8611003659) LYMPH % (test code = 34.9 % 736-9) MONO % (test code = 12.1 % 5905-5) EOS % (test code = 4.8 % 713-8) BASO % (test code = 1.2 % 706-2) GRAN MAT x10^3(ANC) 3.88 10*3/uL 1.88-7.09 (test code = 8835468476) IMM GRAN x10^3 (test <0.03 0.00-0.06 code = 8574239514) LYMPH x10^3 (test code 2.89 10*3/uL 1.32-3.29 = 731-0) MONO x10^3 (test code 1.00 10*3/uL 0.33-0.92 H = 742-7) EOS x10^3 (test code = 0.40 10*3/uL 0.03-0.39 H 711-2) BASO x10^3 (test code 0.10 10*3/uL 0.01-0.07 H = 704-7) Lab Interpretation Abnormal (test code = 98937-9) [facility] WITH [id number] 22:15:01 Test Item Value Reference Range Interpretation Comments WBC (test code = See_Comment [Automated 6690-2) message] The sy stem which generated this result transmitted reference range : 4.30 - 11.10 10*3/?L. The reference range was not used to interpret this result as normal/abnormal . RBC (test code = See_Comment [Automated 349-8) message] The sy stem which generated this [...] RDW-SD (test code = 45.0 fL 39.0-49.9 73868-2) RDW-CV (test code = 15.1 % 12.0-15.5 788-0) PLT (test code = See_Comment [Automated 777-3) message] The sy stem which generated this result transmitted reference range : 166 - 358 10*3/ ?L. The reference r teresa was not used to interpret this result as normal/abnormal . MPV (test code = 10.5 fL 9.5-12.9 97061-4) NRBC/100 WBC (test See_Comment [Automat ed code = 1561781643) message] The system which generated this result transmitted reference range : 0.0 - 10.0 /100 WBCs. The refer ence range was not u sed to interpret th is result as normal/abnormal . NRBC x10^3 (test code <0.01 See_Comment [Auto mated = 2552180358) message] The s ystem which generated this result transmitted reference range : 10*3/?L. The reference range was not used to interpret this result as normal/abnormal . GRAN MAT (NEUT) % 46.8 % (test code = 770-8) IMM GRAN % (test code 0.20 % = 4120013824) LYMPH % (test code = 34.9 % 736-9) MONO % (test code = 12.1 % 5905-5) EOS % (test code = 4.8 % 713-8) BASO % (test code = 1.2 % 706-2) GRAN MAT x10^3(ANC) 3.88 10*3/uL 1.88-7.09 (test code = 1921187798) IMM GRAN x10^3 (test <0.03 0.00-0.06 code = 3145970182) LYMPH x10^3 (test code 2.89 10*3/uL 1.32-3.29 = 731-0) MONO x10^3 (test code 1.00 10*3/uL 0.33-0.92 H = 742-7) EOS x10^3 (test code = 0.40 10*3/uL 0.03-0.39 H 711-2) BASO x10^3 (test code 0.10 10*3/uL 0.01-0.07 H = 704-7) Lab Interpretation Abnormal (test code = 79912-0) [facility] [id number] 22:08:00 Test Item Value Reference Range Interpretation Comments POCT PREG (test code = 1605) negative On board controls acceptable with present C Line (test code = 3574) POCT PREG LOT # (test code = 3575) [id number] POCT PREG TEST DATE (test 11/09/2022 code = 3576) Lab Interpretation (test code = Normal 92492-0) [facility] [id number] 22:08:00 Test Item Value Reference Range Interpretation Comments POCT PREG (test code = 1605) negative On board controls acceptable with present C Line (test code = 3574) POCT PREG LOT # (test code = 3575) [id number] POCT PREG TEST DATE (test 11/09/2022 code = 3576) Lab Interpretation (test code = Normal 08330-2) [facility] [id number] 04:20:07 EXAMINATION: CT RENAL STONE PROTOCOL CLINICAL [...] 1.Nonobstructing right nephrolithiasis.2.Diverticulosis without evidence of diverticulitis. [facility]-[id number] Dictated and approved by vice president medical affairs/fellow: Lavell Riggs M.D. I, Silvano Barker MD, personally reviewed the images and resident's/fellow's findings and agree with the final report.[facility], Radiology Results Incoming - 02/05/2021 11:23 [...] osseous abnormalities.IMPRESSION:1.Nonobstructing right nephrolithiasis.2.Diverticulosis without evidence of diverticulitis.[facility]- [id number] and approved by vice president medical affairs/fellow: Keke Leon, Silvano Barker MD, personally reviewed the images and resident's/fellow's findings and agree with the final report.[facility]"
--- NOTE | 2022-01-30 16:34 | ER ---
Nurse's Notes [facility] Name: Dennis Kerr Age: 41 yrs Sex: Female : 1980 Arrival Date: 01/30/2022 Time: 14:34 Bed 9 Private MD: Diagnosis: Presentation: 01/30 14:48 Chief complaint: Patient states: 'I tripped over the dog this morning and I hurt my ab2 elbow. I let it go for a little bit then I was getting ready I felt a pop and now I cant straighten my arm.". Coronavirus screen: Vaccine status: Patient reports receiving the 2nd dose of the covid vaccine. Client denies travel out of the [place] in the last 14 days. At this time, the client does not indicate any symptoms associated with coronavirus-19. Ebola Screen: Patient negative for fever greater than or equal to 101.5 degrees Fahrenheit, and additional compatible Ebola Virus Disease symptoms Patient denies exposure to infectious person. Patient denies travel to an Ebola-affected area in the 21 days before illness onset. No symptoms or risks identified at this time. Initial Sepsis Screen: Does the patient meet any 2 criteria? No. Patient's initial sepsis screen is negative. Does the patient have a suspected source of infection? No. Patient's initial sepsis screen is negative. Risk Assessment: Do you want to hurt yourself or someone else? Patient reports no desire to harm self or others. Onset of symptoms is unknown. 14:48 Method Of Arrival: Ambulatory ab2 14:48 Acuity: JEN 4 ab2 Triage Assessment: 14:50 General: Appears in no apparent distress. uncomfortable, Behavior is calm, cooperative, ab2 appropriate for age. Pain: Complains of pain in left elbow Pain currently is 8 out of 10 on a pain scale. Musculoskeletal: Reports pain in left elbow. Historical: - Allergies: 14:47 Codeine; ab2 - PMHx: 14:47 None; ab2 - PSHx: 14:47 tubal ligation; Cholecystectomy; ab2 - Immunization history:: Adult Immunizations up to date, Client reports receiving the 2nd dose of the Covid vaccine. - Social history:: Smoking status: Patient denies any tobacco usage or history of. Assessment: 16:34 Reassessment: Called patient to room her and she left about 10 minutes prior per ab2 registration. 16:36 Reassessment: Pt never made it to fast track. Did not care for patient. . ss7 Vital Signs: 14:48 BP 172 / 118; Pulse 98; Resp 17; Temp 97.9(TE); Pulse Ox 98% on R/A; Weight 83.91 kg; ab2 Height 5 ft. 5 in. (165.10 cm); Pain 8/10; 14:48 Body Mass Index 30.79 (83.91 kg, 165.10 cm) ab2 ED Course: 14:34 Patient arrived in ED. am2 14:50 Triage completed. ab2 14:50 Arm band placed on right wrist. ab2 16:33 Janeth Echeverria, RN is Primary Nurse. ss7 Administered Medications: No medications were administered Outcome: 16:34 Patient left the ED. ab2 Signatures: Patsy Huber am2 Gene Saldivar ab2 Janeth Echeverria, RN RN ss7 Corrections: (The following items were deleted from the chart) 14:48 14:47 PMHx: Anxiety; ab2 ab2
[2022-01-30 17:11] VITALS: BP 172/118; TEMP 97.9; O2SAT 98
== END 2022-01-30 16:34 | disposition left against medical advice (07) ==
LOC: ER 14:33
DX: Z53.21 Procedure and treatment not carried out due to patient leaving prior to being seen by health care provider (principal)
CPT/HCPCS: 99281

== ENCOUNTER 2023-05-12 14:22 | Emergency (ER) | payer OTHER, SELFPAY ==
[2023-05-12 14:45] LABS: Absolute Lymphocytes (CBC) 1.7 K/uL (0.7-4.9); Hematocrit 41.7 % (36.0-45.0); Lymphocytes % 24.5 % (15.3-44.8); MCV 82.3 fL (80-100); MPV 8.5 fL (7.6-11.3); RBC Red Blood Cell Count 5.07 M/uL (3.86-4.86)
--- NOTE | 2023-05-12 14:50 | RAD REPORT ---
EXAM DESCRIPTION: CT - Head Brain Wo Cont - 05/12/2023 2:42 pm CLINICAL HISTORY: NUMBNESS Headache, drowsiness COMPARISON: No comparisons TECHNIQUE: All CT scans are performed using dose optimization technique as appropriate and may inclu de automated exposure control or mA/KV adjustment according to patient size. FINDINGS: No intracranial hemorrhage, hydrocephalus or extra-axial fluid collection.No areas of brai n edema or evidence of midline shift. The paranasal sinuses and mastoids are clear. The calvarium is intact. IMPRESSION: No acute intracranial abnormality.
--- NOTE | 2023-05-12 15:04 | RAD REPORT ---
EXAM DESCRIPTION: US - Upper Ext Artery Uni Tariq - 05/12/2023 2:59 pm CLINICAL HISTORY: Pain;Numbness/tingling COMPARISON: No comparisons FINDINGS: Right upper extremity arterial Doppler was performed. No flow abnormality seen. Triphasic waveforms noted. IMPRESSION: Negative study for significant flow abnormality.
[2023-05-12 15:10] LABS: Albumin 3.4 g/dL (3.4-5.0); Bilirubin Total 0.3 mg/dL (0.2-1.0); Magnesium 2.1 mg/dL (1.6-2.4); Potassium 3.4 mEq/L (3.5-5.1); Protein, Total 7.3 g/dL (6.4-8.2); Thyroid Stimulating Hormone 1.2 uIU/mL (0.358-3.740); Troponin High Sensitivity 5.8 pg/mL (<58.9)
--- NOTE | 2023-05-12 15:22 | RAD REPORT ---
EXAM DESCRIPTION: RAD - Chest Single View - 05/12/2023 3:06 pm CLINICAL HISTORY: CHEST PAIN Chest pain. COMPARISON: Chest Single View dated 07/14/2021 FINDINGS: Portable technique limits examination quality. The lungs are grossly clear. The heart is normal in size. No displaced fractures. IMPRESSION: No acute intrathoracic process suspected.
[2023-05-12] MEDS ORDERED: NA CHLORIDE 0.9% 1,000 ML ONE (15:46)
[2023-05-12] MEDS ORDERED: LORazepam 2 MG/ML VIAL ONE (15:46)
[2023-05-12] MEDS ORDERED: dexAMETHasone 10 MG/ML VIAL ONE (15:46)
--- NOTE | 2023-05-12 17:02 | RAD REPORT ---
EXAM DESCRIPTION: MRI - Brain Wo Cont - 05/12/2023 4:55 pm CLINICAL HISTORY: NUMBNESS Headache, drowsiness COMPARISON: Head Brain Wo Cont dated 05/12/2023 TECHNIQUE: Multi-sequence, multiplanar MR imaging of the brain was performed without contrast. FINDINGS: No intracranial hemorrhage, hydrocephalus or extra-axial fluid collections.Small 4 mm area of FLAIR hyperintensity centrum semiovale white matter on the left is nonspecific. No edema or shift of midline structures. No findings to suspect brain mass. DWI is negative for acute CVA. Midline structures are normally formed. Mastoid air cells and paranasal sinuses are clear. IMPRESSION: Small 4 mm FLAIR hyperintensity centrum semiovale white matter on the left is nonspecifi c. Consider follow-up brain MRI in 12 months for monitoring. Elsewhere, no acute or worrisome abnormality.
--- NOTE | 2023-05-12 17:50 | EDPHYS ---
Physician Documentation [facility] Name: Dennis Kerr Age: 42 yrs Sex: Female : 1980 Arrival Date: 05/12/2023 Time: 14: Bed 6 Private MD: ED Physician Venkatesh Milner HPI: 05/12 15:03 This 42 yrs old Female presents to ER via Ambulatory with complaints of Chest Pain. kb 15:03 The patient or guardian reports chest pain that is located primarily in the chest kb diffusely. Onset: last night. The pain radiates to Associated signs and symptoms: The patient has no apparent associated signs or symptoms. The chest pain is described as aching. Duration: The patient or guardian reports a single episode. Modifying factors: The symptoms are alleviated by nothing. the symptoms are aggravated by nothing. Severity of pain: At its worst the pain was moderate in the emergency department the pain is unchanged. The patient has not experienced similar symptoms in the past. The patient has not recently seen a physician. Pt reports tingling and numbness to digits 3, 4 and 5 on right hand with pain that radiates up right arm, into chest and down left arm with numbness and tingling to digits 1 and 2 on left hand. 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 - Social history:: Smoking status: Patient denies any tobacco usage or history of. ROS: 15:02 Constitutional: Negative for fever, chills, and weight loss. kb 15:02 Cardiovascular: Positive for chest pain, Negative for edema, orthopnea, palpitations, paroxysmal nocturnal dyspnea. 15:02 Neuro: Positive for numbness, of the right middle finger, right ring finger, right little finger, left thumb and left index finger. 15:05 Constitutional: Positive for fatigue. kb 15:05 Abdomen/GI: Positive for nausea. 15:05 All other systems are negative. Exam: 15:02 Constitutional: This is a well developed, well nourished patient who is awake, alert, kb and in no acute distress. Head/Face: Normocephalic, atraumatic. ENT: Moist Mucous membranes Cardiovascular: Regular rate and rhythm with a normal S1 and S2. No gallops, murmurs, or rubs. No pulse deficits. Respiratory: Respirations even and unlabored. No increased work of breathing. Talking in full sentences Abdomen/GI: Soft, non-tender. No distention Skin: Warm, dry with normal turgor. Normal color. MS/ Extremity: Pulses equal, no cyanosis. Neurovascular intact. Full, normal range of motion. Neuro: Awake and alert, GCS 15, oriented to person, place, time, and situation. Moves all extremities. Normal gait. 15:02 Constitutional: The patient appears anxious. 15:20 ECG was reviewed by the Attending Physician. Vital Signs: 14:31 Resp 16; Temp 98.4; Pulse Ox 99% ; Weight 86.18 kg; Height 5 ft. 5 in. ; Pain 8/10; iw 14:38 BP 173 / 122; jl7 15:33 BP 175 / 127 LA; jl7 15:35 BP 173 / 123 RA; Pulse 95; Resp 15; Pulse Ox 100% ; jl7 16:15 BP 143 / 108; Pulse 101; Resp 15; Pulse Ox 100% ; jl7 18:00 BP 173 / 130; Pulse 99; Resp 17; Pulse Ox 99% ; jl7 18:44 BP 153 / 118; Pulse 94; Resp 15; Pulse Ox 97% ; jl7 19:14 BP 148 / 112; Pulse 95; Resp 18 S; Pulse Ox 100% on R/A; as6 14:31 Body Mass Index 31.62 (86.18 kg, 165.1 cm) iw 14:31 Pain Scale: Adult iw MDM: 14:24 Patient medically screened. kb 15:05 Differential diagnosis: abnormal EKG, acute myocardial infarction, anxiety, coronary kb artery disease. Data reviewed: vital signs, nurses notes. 17:29 Consideration of Admission/Observation Escalation of care including kb admission/observation considered. pt will be transferred due to lack of neuro services at this facility. Management of patient was discussed with the following: Discussed with Dr Milner who recommended neuro consult. 17:30 Management of patient was discussed with the following: Dr Andres, neurologist at [facility], recommends pt be transferred for further neuro evaluation. Awaiting hospitalist . Counseling: I had a detailed discussion with the patient and/or guardian regarding: the historical points, exam findings, and any diagnostic results supporting the discharge/admit diagnosis, lab results, radiology results, the need to transfer to another facility, [facility] does not immediately have the required specialist. 17:58 Management of patient was discussed with the following: Dr Peter, hospitalist at [facility], accepts pt for transfer. 05/12 14:29 Order name: CBC with Diff; Complete Time: 14:53 kb 05/12 14:29 Order name: D-Dimer; Complete Time: 15:06 kb 05/12 14:29 Order name: Magnesium; Complete Time: 15:10 kb 05/12 14:29 Order name: NT PRO-BNP; Complete Time: 15:10 kb 05/12 14:29 Order name: Troponin HS; Complete Time: 15:10 kb 05/12 14:29 Order name: CMP; Complete Time: 15:10 kb 05/12 14:29 Order name: TSH; Complete Time: 15:10 kb 05/12 14:29 Order name: [place] Screen Profile; Complete Time: 15:15 kb 05/12 17:54 Order name: Troponin High Sensitivity; Complete Time: 18:44 kb 05/12 14:29 Order name: XRAY Chest (1 view); Complete Time: 15:23 kb 05/12 14:29 Order name: CT Head Brain wo Cont; Complete Time: 14:53 kb 05/12 14:35 Order name: Upper Ext Artery Uni Tariq; Complete Time: 15:06 EDMS 05/12 16:15 Order name: MRI - Brain Wo Cont; Complete Time: 17:04 kb 05/12 14:29 Order name: EKG; Complete Time: 14:29 kb 05/12 14:29 Order name: Cardiac monitoring; Complete Time: 14:38 kb 05/12 14:29 Order name: EKG - Nurse/Tech; Complete Time: 14:38 kb 05/12 14:29 Order name: IV Saline Lock; Complete Time: 14:38 kb 05/12 14:29 Order name: Labs collected and sent; Complete Time: 14:38 kb 05/12 14:29 Order name: O2 Per Protocol; Complete Time: 14:38 kb 05/12 14:29 Order name: O2 Sat Monitoring; Complete Time: 14:38 kb 05/12 15:11 Order name: Vital Signs; Complete Time: 15:45 kb EC:20 Rate is 103 beats/min. Rhythm is regular. QRS [place] is Normal. MO interval is normal at kb 138 msec. QRS interval is normal at 76 msec. QT interval is prolonged at 505 msec. Administered Medications: 15:43 Drug: NS 0.9% IV 1000 ml Route: IV; Rate: 1000 ml; Site: left antecubital; jl7 18:48 Follow up: Response: No adverse reaction; IV Status: Completed infusion; IV Intake: jl7 1000ml 15:43 Drug: Ativan IVP 0.5 mg Route: IVP; Site: left antecubital; jl7 16:00 Follow up: Response: No adverse reaction jl7 15:45 Drug: Decadron - Dexamethasone IVP 10 mg Route: IVP; Site: left antecubital; jl7 16:00 Follow up: Response: No adverse reaction jl7 18:25 Drug: Ondansetron IVP 4 mg Route: IVP; Site: left antecubital; jl7 18:48 Follow up: Response: No adverse reaction jl7 18:26 Drug: morphine IVP or IV 4 mg Route: IVP; Infused Over: 4 mins; Site: left antecubital; jl7 18:48 Follow up: Response: No adverse reaction; Pain is decreased jl7 18:48 Drug: hydrALAZINE IVP 10 mg Route: IVP; Site: left antecubital; jl7 19:37 Follow up: Response: No adverse reaction; Blood pressure is lowered as6 Disposition Summary: 05/12/23 17:49 Transfer Ordered Transfer Location: [facility] kb Reason: Higher level of care kb Condition: Stable kb Problem: new kb Symptoms: are unchanged kb Accepting Physician: Dr Peter(05/12/23 20:19) as6 Diagnosis - Bilateral hand numbness kb - Elevated blood-pressure reading, without diagnosis of hypertension kb Forms: - Medication Reconciliation Form kb - SBAR form kb Signatures: Dispatcher [employer] Denae Gaitan, KIMBERLEE DELAROSAP-Irene Gaffney RN RN iw Leal, Jahala, RN RN jl7 Slawson, Dilip, RN RN as6 Corrections: (The following items were deleted from the chart) 14:35 14:30 Lower Extremity Artery Uni [id number] ordered. EDMS EDMS 15:06 15:02 All other systems are negative, kb kb 17:49 17:49 Dr kb kb 17:49 17:49 Essential (primary) hypertension kb kb 17:59 17:49 Dr kb kb 20:19 17:59 Dr Peter kb as6
--- NOTE | 2023-05-12 17:50 | ER ---
Nurse's Notes [facility] Name: Dennis Kerr Age: 42 yrs Sex: Female : 1980 Arrival Date: 05/12/2023 Time: 14:22 Bed 6 Private MD: Diagnosis: Bilateral hand numbness;Elevated blood-pressure reading, without diagnosis of hypertension Presentation: 05/12 14:25 Chief complaint: Patient states: sharp pains up both arms and my fingers feel like iw they're going to pop , the pain moves up my arm and into my chest , started last night. Coronavirus screen: At this time, the client does not indicate any symptoms associated with coronavirus-19. Ebola Screen: Patient negative for fever greater than or equal to 101.5 degrees Fahrenheit, and additional compatible Ebola Virus Disease symptoms Patient denies exposure to infectious person. Patient denies travel to an Ebola-affected area in the 21 days before illness onset. No symptoms or risks identified at this time. Initial Sepsis Screen: Does the patient meet any 2 criteria? No. Patient's initial sepsis screen is negative. Does the patient have a suspected source of infection? No. Patient's initial sepsis screen is negative. Risk Assessment: Do you want to hurt yourself or someone else? Patient reports no desire to harm self or others. Onset of symptoms was May 11, 2023. 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 - Social history:: Smoking status: Patient denies any tobacco usage or history of. Screenin:38 [facility] ED Fall Risk Assessment (Adult) History of falling in the last 3 months, jl7 including since admission No falls in past 3 months (0 pts) Confusion or Disorientation No (0 pts) Intoxicated or Sedated No (0 pts) Impaired Gait No (0 pts) Mobility Assist Device Used No (0 pt) Altered Elimination No (0 pt) Score/Fall Risk Level 0 - 2 = Low Risk Oriented to surroundings, Maintained a safe environment. Abuse screen: Denies threats or abuse. Denies injuries from another. Nutritional screening: No deficits noted. Tuberculosis screening: No symptoms or risk factors identified. Assessment: 14:40 General: Appears in no apparent distress. uncomfortable, Behavior is cooperative, jl7 appropriate for age, anxious. Pain: Complains of pain in right arm and left arm Pain radiates to chest Pain currently is 8 out of 10 on a pain scale. Quality of pain is described as sharp, shooting, Pain began 1 day ago. Is continuous. Neuro: Level of Consciousness is awake, alert, obeys commands, Oriented to person, place, time, situation. Cardiovascular: Patient's skin is warm and dry. Respiratory: Airway is patent Respiratory effort is even, unlabored, Respiratory pattern is regular, symmetrical. Derm: Skin is pink, warm \T\ dry. 16:00 Reassessment: Patient appears in no apparent distress at this time. No changes from jl7 previously documented assessment. Patient and/or family updated on plan of care and expected duration. Pain level reassessed. Patient is alert, oriented x 3, equal unlabored respirations, skin warm/dry/pink. 17:00 Reassessment: Patient appears in no apparent distress at this time. No changes from jl7 previously documented assessment. Patient and/or family updated on plan of care and expected duration. Pain level reassessed. Patient is alert, oriented x 3, equal unlabored respirations, skin warm/dry/pink. 18:00 Reassessment: Patient appears in no apparent distress at this time. No changes from jl7 previously documented assessment. Patient and/or family updated on plan of care and expected duration. Pain level reassessed. Patient is alert, oriented x 3, equal unlabored respirations, skin warm/dry/pink. 19:15 Reassessment: Patient appears in no apparent distress at this time. no complaints or as6 concerns at this time. 19:45 Reassessment: Pt reports and increase in pain, ER physician notified. jb4 Vital Signs: 14:31 Resp 16; Temp 98.4; Pulse Ox 99% ; Weight 86.18 kg; Height 5 ft. 5 in. ; Pain 8/10; iw 14:38 BP 173 / 122; jl7 15:33 BP 175 / 127 LA; jl7 15:35 BP 173 / 123 RA; Pulse 95; Resp 15; Pulse Ox 100% ; jl7 16:15 BP 143 / 108; Pulse 101; Resp 15; Pulse Ox 100% ; jl7 18:00 BP 173 / 130; Pulse 99; Resp 17; Pulse Ox 99% ; jl7 18:44 BP 153 / 118; Pulse 94; Resp 15; Pulse Ox 97% ; jl7 19:14 BP 148 / 112; Pulse 95; Resp 18 S; Pulse Ox 100% on R/A; as6 14:31 Body Mass Index 31.62 (86.18 kg, 165.1 cm) iw 14:31 Pain Scale: Adult iw ED Course: 14:23 Patient arrived in ED. im 14:23 Denae Myers FNP-C is PHCP. kb 14:23 Venkatesh Milner MD is Attending Physician. kb 14:26 Triage completed. iw 14:29 Cabrera Graves, RN is Primary Nurse. jl7 14:30 Arm band placed on. iw 14:38 Patient has correct armband on for positive identification. Bed in low position. Call jl7 light in reach. Side rails up X 1. Client placed on continuous cardiac and pulse oximetry monitoring. NIBP monitoring applied. 14:38 Initial lab(s) drawn, by ED staff, sent to lab. EKG done, by ED staff, reviewed by elisabet MOHAN. Patient maintains SpO2 saturation greater than 95% on room air. 14:38 Inserted saline lock: 20 gauge in left antecubital area, using aseptic technique. jl7 ,using aseptic technique. inserted by DAVID Kiran Tech Blood collected. 14:41 [place] Screen Profile Sent. zm 14:41 TSH Sent. zm 14:41 CMP Sent. zm 14:41 CBC with Diff Sent. zm 14:41 D-Dimer Sent. zm 14:41 Magnesium Sent. zm 14:41 NT PRO-BNP Sent. zm 14:41 Troponin HS Sent. zm 14:42 CT Head Brain wo Cont In Process Unspecified. EDMS 15:01 Upper Ext Artery Uni Tariq In Process Unspecified. EDMS 15:08 XRAY Chest (1 view) In Process Unspecified. EDMS 16:57 MRI - Brain Wo Cont In Process Unspecified. EDMS 17:58 Physician approval from [facility] by Dr Neha Peter. ah1 18:00 No provider procedures requiring assistance completed. Patient transferred, IV remains jl7 in place. intact, No redness/swelling at site. 19:20 Hospital approval by [facility] by Leena Ramos RN. [facility] 19:27 Contacted [facility]. 6 min. ETA. [facility] 19:33 EMS arrived. [facility] Administered Medications: 15:43 Drug: NS 0.9% IV 1000 ml Route: IV; Rate: 1000 ml; Site: left antecubital; jl7 18:48 Follow up: Response: No adverse reaction; IV Status: Completed infusion; IV Intake: jl7 1000ml 15:43 Drug: Ativan IVP 0.5 mg Route: IVP; Site: left antecubital; jl7 16:00 Follow up: Response: No adverse reaction jl7 15:45 Drug: Decadron - Dexamethasone IVP 10 mg Route: IVP; Site: left antecubital; jl7 16:00 Follow up: Response: No adverse reaction jl7 18:25 Drug: Ondansetron IVP 4 mg Route: IVP; Site: left antecubital; jl7 18:48 Follow up: Response: No adverse reaction jl7 18:26 Drug: morphine IVP or IV 4 mg Route: IVP; Infused Over: 4 mins; Site: left antecubital; jl7 18:48 Follow up: Response: No adverse reaction; Pain is decreased jl7 18:48 Drug: hydrALAZINE IVP 10 mg Route: IVP; Site: left antecubital; jl7 19:37 Follow up: Response: No adverse reaction; Blood pressure is lowered as6 Medication: 14:38 VIS not applicable for this client. jl7 Intake: 18:48 IV: 1000ml; Total: 1000ml. jl7 Outcome: 17:49 ER care complete, transfer ordered by MD. allen 19:39 Transferred by ground EMS to [facility], Transfer form completed. as6 X-rays sent w/ patient. Note: report given to March RN 19:39 Condition: stable 19:39 Instructed on the need for transfer. 20:19 Patient left the ED. as6 Signatures: Dispatcher [employer] EDDenae Durbin, TELEPHONE MECHANIC-C TELEPHONE MECHANIC-Irene Gaffney RN RN iw Bryson, James, RN RN jb4 Cabrera Graves RN RN jl7 Dilip Michelle, BELLA RN as6 Qiana Sheth Ry Ruth [facility] Pallavi Knox Corrections: (The following items were deleted from the chart) 18:29 14:40 Pain: Complains of pain in right arm and left arm Pain does not radiate. Pain jl7 currently is 8 out of 10 on a pain scale. Quality of pain is described as sharp, shooting, Pain began 1 day ago. Is continuous, jl7
[2023-05-12] MEDS ORDERED: MORPHINE 4 MG/ML SYR ONE (18:30)
[2023-05-12] MEDS ORDERED: ONDANSETRON 4 MG/2 ML VIAL ONE (18:30)
[2023-05-12] MEDS ORDERED: HYDRALAZINE HCL 20 MG/ML VIAL ONE (18:55)
[2023-05-12 20:31] VITALS: TEMP 98.4
[2023-05-12 20:43] VITALS: BP 148/112; O2SAT 100
--- NOTE | 2023-05-14 12:35 | EKG ---
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
== END 2023-05-12 20:19 | disposition short-term general hospital (02) ==
LOC: ER 14:22
DX: R03.0 Elevated blood-pressure reading, without diagnosis of hypertension (principal); Z88.5 Allergy status to narcotic agent
CPT/HCPCS: 96361; 93005; 85025; 36415; 83735; 86308; 85379; 84443; 84484 ×2; 80053; 83880; 70450; 71045; 93931; 70551; 96375; 96374; 99285; J0360; J1100; J2405; J7030